=== PATIENT | male | born 1945 | race Caucasian/White ===

== ENCOUNTER 2017-11-07 08:00 | Outpatient (RCR) | payer MEDICARE, OTHER, SELFPAY ==
--- NOTE | 2017-10-21 12:59 | PCM.PR.HP ---
History of Present Illness Arrival date:: 10/21/17 Arrival time:: 12:59 Date of Referral:: 10/11/17 Date of Evaluation: 10/21/17 Referring Physician: DR.DEREK MANZO Primary Diagnosis: COPD J44.9 Gold Classification Stage III History of Present Illness: Patient presents to pulmonary rehab to day under the care of Dr. Manzo of the [facility]. [facility] Breathless Scale: When is the patient short of breath? Y/N Grade: Description of Breathlessness: 0 I only get breathless with strenuous exercise. 1 I get short of breath when hurrying on level ground or walking up a slight hill. 2 On level ground, I walk slower than people of the same age because of breathless, or have to stop for breath when walking at my own pace. 3 I stop for breath after walking 100 yards or after a few minutes on level ground. 4 I am too breathless to leave the house or I am breathless when dressing. Respiratory Problems: Yes: Able to Speak in Full Sentences, Dyspnea at Rest, Dyspnea with Activity No: Fatigue, Cough with Secretions Home Medications: Home Medications Losartan Potassium [Cozaar] 50 mg PO DAILY 03/29/16 Metoprolol Succinate 12.5 mg PO DAILY 03/29/16 Niacin [Niacin ER] 1,000 mg PO QHS 03/29/16 Pravastatin [Pravachol] 40 mg PO QHS 03/29/16 Oxycodone HCl/Acetaminophen [Percocet 5/325] 1 tab PO Q6H PRN PRN #15 tab 04/06/16 aspirin 81 mg tablet,delayed release 81 mg PO QDAY 06/29/17 isosorbide mononitrate ER 30 mg tablet,extended release 24 hr 30 mg PO DAILY #90 tab 09/13/17 umeclidinium 62.5 mcg-vilanterol 25 mcg/actuation powdr for inhalation 1 inh INHALATION Q24H #1 device 10/10/17 albuterol sulfate HFA 90 mcg/actuation aerosol inhaler 2 puff INHALATION Q6H PRN #18 g 10/11/17 Allergies/Adverse Reactions: Allergies VITAMIN B12 INJECTION Adverse Reaction (Uncoded 03/29/16 14:23) BLURRED VISION AND HOT FLASH - Secretions Normal Color:: clear Amount/Day:: scant to small amount Cough:: Yes A.T.C.: Yes Hx of Sleep Apnea: No Do you snore loudly (louder than talking or can be heard through closed doors)?: No Do you often feel tired/ fatigued/ sleepy during daytime?: Yes Has anyone observed you stop breathing during sleep?: No History of Hypertension (for STOP score): Yes STOP Results: Positive Medical Utilization Do you use a peak flow meter at home?: No Do you use a spacer device with your inhalers?: No Number of hospital visits in the last year?: 0 Number of emergency room visits in the last year?: 0 Do you see your physician on a regular schedule?: Yes How often?: Dr. Logan every 6mo, PCP 3-6 mo, Dr. 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 Chronic hypoxemic respiratory failure (Chronic) J96.11 COPD (chronic obstructive pulmonary disease) (Chronic) J44.9 Displacement of other ocular prosthetic devices, implants and grafts, 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 Surgical History: Past Surgical History (Last Reviewed 10/21/17 @ 13:23 by Arthur Tran CRT, LICENSED REACTOR OPERATOR, BS) H/O vasectomy (Resolved) Z98.52 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 Family History: Family History (Last Reviewed 10/10/17 @ 13:42 by Hannah Garcia) Sister Heart disease Sister Breast cancer Brother COPD (chronic obstructive pulmonary disease) - Current/ Previous Services Pulmonary Rehab:: No Social History - Smoking History Smoking Status: Former smoker Years Smokin Packs Smoked per Day: 2 Hx Smoking Cessation Date: 2015 Hx Tobacco Use: Yes Hx Smoking Exposure: No - Alcohol Use Alcohol Usage: Yes - social or mixed cocktail in evening after dinner - Substance Abuse Hx Substance Use: No - Occupation Occupation (List type of work in comments):: Retired Hours worked per day:: 4 - 3.5-4.0 - Hobbies, Recreation, Social Activities Hobbies: Other - fishing Recreational Activities: I am able to engage in most, but not all activities Functioning ADL/IADL - Current Ability Current Ability: Independent Self-Care (e.g.,grooming, dressing, & bathing), Independent Ambulation, Independent Transfer, Independent Household tasks (e.g., light meal prep, laundry, shopping) - Pt Functioning Prior to Problem Prior Functioning: Self-Care (e.g.,grooming, dressing, & bathing): Independent, Ambulation: Independent, Transfer: Independent, Household tasks (e.g., light meal prep, laundry, shopping): Independent Social Environment - Status Marital Status: - Current Living Arrangements Living Environment:: Family - Children How many children do you have?: 2 - 3-grandchildren; couple great grandchildren Do any of your children live nearby?: Yes - Safety Do you feel safe in your surroundings?: Yes - Assistance Do you need any assistance at home?: none Review of Systems Review of Systems: Right click = Denies ([place]). Left click = Reports ([place]) Respiratory: Reports: Appetite, Normal, Fatigue, Sleep, Normal. Denies: Cough, SOB at Rest, Sputum production, Dizziness/Lightheadedness Is Patient Pain Free?: No Pain Location: none Pain Level: 0/10 Risk Factor Assessment - Vital Signs Temperature: 98.7 F Pulse Rate: 68 Pulse Rhythm: Regular Respiratory Rate: 18 Pulse Ox: 91 - on 4 liters oxygen Blood Pressure: 122/70 Nailbeds:: pink - Smoking Do you use tobacco products? If so, how much and for how long?: Yes If no, have you EVER used tobacco products?: Quit greater than 12 months ago Exposure to 2nd-hand smoke? How much and how long?: No Do you plan to quit smoking?: Yes - Diabetes Nutrition Referral for Diabetes: No - Obesity Height: 5 ft 9 in Weight:: 181 lb - BMI 26.7% Weight Source: Standing Scale Nutritional Referral for Obesity: No - Physical Activity Physical Inactivity: Reg Exercise 30 min/day - Risk Stratification Risk Guidelines: Lowest Risk: Risk Factor for Smoking, Risk Factor for Dyslipidemia, Risk Factor for Diabetes, Risk Factor for Obesity, Risk Factor for Hypertension, Risk Factor for Sedentary Lifestyle, Risk Factor for Depression - For Smoking Smoking Risk Guidelines: Smoking Low Risk: None or quit greater than 6 months ago. Smoking Moderate Risk: Smoker or quit 6 months or less ago. Smoking High Risk: Smoker - For Dyslipidemia Dyslipidemia Risk Guidelines: Low Risk: Moderate Risk: High Risk: 15-25% fat 25.1-29% fat >/= 30% fat. <7% sat fat 7-9% sat fat >9% sat fat. <150 mg chol 150-299 mg chol >/= 300 mg chol. LDL <100 LDL 100-129 LDL >/= 130. Chol/HDL ratio <5.0 Chol/HDL ratio 5.0-6.0 Chol/HDL ratio >6.0. Triglycerides <100 Triglycerides 100-149 Triglycerides >/= 150 - For Diabetes Mellitus Diabetes Risk Guidelines: Diabetes Low Risk: HgA1c <6.5% and/or FBG <120. Diabetes Moderate Risk: HgA1c 6.6-7.9% and/or FBG 120-180. Diabetes High Risk: HgA1c >/= 8% and/or FBG >180 - For Obesity/Overweight Obesity/Overweight Risk Guidelines: Obesity Low Risk: BMI <25.0. Obesity Moderate Risk: BMI 25-29.9. Obesity High Risk: BMI >/= 30.0 - For Hypertension Hypertension Risk Guidelines: Hypertension Low Risk: Systolic <120 and Diastolic <80. Hypertension Moderate Risk: Systolic 120-139 and Diastolic 80-89. Hypertension High Risk: Systolic >/= 140 and Diastolic >/= 90 - For Sedentary Lifestyle Sedentary Lifestyle Risk Guidelines: Sedentary Lifestyle Low Risk: >/= 1,500 kcal/week. Sedentary Lifestyle Moderate Risk: 700-1,499 kcal/week. Sedentary Lifestyle High Risk: < 700 kcal/week - For Depression Depression Risk Guidelines: Depression Low Risk: Not clinically depressed. Depression Moderate Risk: Mildly depressed. Depression High Risk: Clinically depressed Motivation - Motivation to Participate On a scale of 1 to 10, how prepared are you to commit to attending program?: 8 What do you see as barriers to successfully being able to complete the program?: work schedule and conflict with program hours being the same times. What do you see as the benefits of succesfully completing the program? In other words, what do you hope to get out of participating in the program?: breath better Are there issues you are dealing with that will interfere with completing the program?: work mornings 3.5 hours and are the same time of the [place] program Do you have a spouse or signficant other, family or friends who will help support you to complete the program?: yes Diagnostic Data Review - Pulmonary Function Test FEV1:: 1.12 - 37% predicted FVC:: 2.66 - 65% predicted FEV1/FVC%:: 42 Gold Classification: GOLD class III(severe COPD)with FEV1/FVC<70, 30%</=FEV1< 50% predicted
--- NOTE | 2017-10-21 13:11 | PR.HP_ITS ---
History of Present Illness Arrival date:: 10/21/17 Arrival time:: 12:59 Date of Referral:: 10/11/17 Date of Evaluation: 10/21/17 Referring Physician: DR.DEREK MANZO Primary Diagnosis: COPD J44.9 Gold Classification Stage III History of Present Illness: Patient presents to pulmonary rehab to day under the care of Dr. Manzo of the [facility]. [facility] Breathless Scale: When is the patient short of breath? Y/N Grade: Description of Breathlessness: 0 I only get breathless with strenuous exercise. 1 I get short of breath when hurrying on level ground or walking up a slight hill. 2 On level ground, I walk slower than people of the same age because of breathless, or have to stop for breath when walking at my own pace. 3 I stop for breath after walking 100 yards or after a few minutes on level ground. 4 I am too breathless to leave the house or I am breathless when dressing. Respiratory Problems: Yes: Able to Speak in Full Sentences, Dyspnea at Rest, Dyspnea with Activity No: Fatigue, Cough with Secretions Home Medications: Home Medications Losartan Potassium [Cozaar] 50 mg PO DAILY 03/29/16 Metoprolol Succinate 12.5 mg PO DAILY 03/29/16 Niacin [Niacin ER] 1,000 mg PO QHS 03/29/16 Pravastatin [Pravachol] 40 mg PO QHS 03/29/16 Oxycodone HCl/Acetaminophen [Percocet 5/325] 1 tab PO Q6H PRN PRN #15 tab aspirin 81 mg tablet,delayed release 81 mg PO QDAY 06/29/17 isosorbide mononitrate ER 30 mg tablet,extended release 24 hr 30 mg PO DAILY # 90 tab 09/13/17 umeclidinium 62.5 mcg-vilanterol 25 mcg/actuation powdr for inhalation 1 inh INHALATION Q24H #1 device 10/10/17 albuterol sulfate HFA 90 mcg/actuation aerosol inhaler 2 puff INHALATION Q6H PRN #18 g 10/11/17 Allergies/Adverse Reactions: Allergies VITAMIN B12 INJECTION Adverse Reaction (Uncoded 03/29/16 14:23) BLURRED VISION AND HOT FLASH - Secretions Normal Color:: clear Amount/Day:: scant to small amount Cough:: Yes A.T.C.: Yes Hx of Sleep Apnea: No Do you snore loudly (louder than talking or can be heard through closed doors)? : No Do you often feel tired/ fatigued/ sleepy during daytime?: Yes Has anyone observed you stop breathing during sleep?: No History of Hypertension (for STOP score): Yes STOP Results: Positive Medical Utilization Do you use a peak flow meter at home?: No Do you use a spacer device with your inhalers?: No Number of hospital visits in the last year?: 0 Number of emergency room visits in the last year?: 0 Do you see your physician on a regular schedule?: Yes How often?: Dr. Logan every 6mo, PCP 3-6 mo, Dr. 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 Chronic hypoxemic respiratory failure (Chronic) J96.11 COPD (chronic obstructive pulmonary disease) (Chronic) J44.9 Displacement of other ocular prosthetic devices, implants and grafts, 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 Surgical History: Past Surgical History (Last Reviewed 10/21/17 @ 13:23 by Arthur Tran CRT, CHILD DAYCARE WORKER , BS) H/O vasectomy (Resolved) Z98.52 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 Family History: Family History (Last Reviewed 10/10/17 @ 13:42 by Hannah Garcia) Sister Heart disease Sister Breast cancer Brother COPD (chronic obstructive pulmonary disease) - Current/ Previous Services Pulmonary Rehab:: No Social History - Smoking History Smoking Status: Former smoker Years Smokin Packs Smoked per Day: 2 Hx Smoking Cessation Date: 2015 Hx Tobacco Use: Yes Hx Smoking Exposure: No - Alcohol Use Alcohol Usage: Yes - social or mixed cocktail in evening after dinner - Substance Abuse Hx Substance Use: No - Occupation Occupation (List type of work in comments):: Retired Hours worked per day:: 4 - 3.5-4.0 - Hobbies, Recreation, Social Activities Hobbies: Other - fishing Recreational Activities: I am able to engage in most, but not all activities Functioning ADL/IADL - Current Ability Current Ability: Independent Self-Care (e.g.,grooming, dressing, & bathing), Independent Ambulation, Independent Transfer, Independent Household tasks (e.g. , light meal prep, laundry, shopping) - Pt Functioning Prior to Problem Prior Functioning: Self-Care (e.g.,grooming, dressing, & bathing): Independent, Ambulation: Independent, Transfer: Independent, Household tasks (e.g., light meal prep, laundry, shopping): Independent Social Environment - Status Marital Status: - Current Living Arrangements Living Environment:: Family - Children How many children do you have?: 2 - 3-grandchildren; couple great grandchildren Do any of your children live nearby?: Yes - Safety Do you feel safe in your surroundings?: Yes - Assistance Do you need any assistance at home?: none Review of Systems Review of Systems: Right click = Denies ([place]). Left click = Reports ([place]) Respiratory: Reports: Appetite, Normal, Fatigue, Sleep, Normal. Denies: Cough, SOB at Rest, Sputum production, Dizziness/Lightheadedness Is Patient Pain Free?: No Pain Location: none Pain Level: 0/10 Risk Factor Assessment - Vital Signs Temperature: 98.7 F Pulse Rate: 68 Pulse Rhythm: Regular Respiratory Rate: 18 Pulse Ox: 91 - on 4 liters oxygen Blood Pressure: 122/70 Nailbeds:: pink - Smoking Do you use tobacco products? If so, how much and for how long?: Yes If no, have you EVER used tobacco products?: Quit greater than 12 months ago Exposure to 2nd-hand smoke? How much and how long?: No Do you plan to quit smoking?: Yes - Diabetes Nutrition Referral for Diabetes: No - Obesity Height: 5 ft 9 in Weight:: 181 lb - BMI 26.7% Weight Source: Standing Scale Nutritional Referral for Obesity: No - Physical Activity Physical Inactivity: Reg Exercise 30 min/day - Risk Stratification Risk Guidelines: Lowest Risk: Risk Factor for Smoking, Risk Factor for Dyslipidemia, Risk Factor for Diabetes, Risk Factor for Obesity, Risk Factor for Hypertension, Risk Factor for Sedentary Lifestyle, Risk Factor for Depression - For Smoking Smoking Risk Guidelines: Smoking Low Risk: None or quit greater than 6 months ago. Smoking Moderate Risk: Smoker or quit 6 months or less ago. Smoking High Risk: Smoker - For Dyslipidemia Dyslipidemia Risk Guidelines: Low Risk: Moderate Risk: High Risk: 15-25% fat 25.1-29% fat >/= 30% fat. <7% sat fat 7-9% sat fat >9% sat fat. <150 mg chol 150-299 mg chol >/= 300 mg chol. LDL <100 LDL 100-129 LDL >/= 130. Chol/HDL ratio <5.0 Chol/HDL ratio 5.0-6.0 Chol/HDL ratio >6.0. Triglycerides <100 Triglycerides 100-149 Triglycerides >/= 150 - For Diabetes Mellitus Diabetes Risk Guidelines: Diabetes Low Risk: HgA1c <6.5% and/or FBG <120. Diabetes Moderate Risk: HgA1c 6.6-7.9% and/or FBG 120-180. Diabetes High Risk: HgA1c >/= 8% and/or FBG >180 - For Obesity/Overweight Obesity/Overweight Risk Guidelines: Obesity Low Risk: BMI <25.0. Obesity Moderate Risk: BMI 25-29.9. Obesity High Risk: BMI >/= 30.0 - For Hypertension Hypertension Risk Guidelines: Hypertension Low Risk: Systolic <120 and Diastolic <80. Hypertension Moderate Risk: Systolic 120-139 and Diastolic 80-89. Hypertension High Risk: Systolic >/= 140 and Diastolic >/= 90 - For Sedentary Lifestyle Sedentary Lifestyle Risk Guidelines: Sedentary Lifestyle Low Risk: >/= 1 ,500 kcal/week. Sedentary Lifestyle Moderate Risk: 700-1,499 kcal/week. Sedentary Lifestyle High Risk: < 700 kcal/week - For Depression Depression Risk Guidelines: Depression Low Risk: Not clinically depressed. Depression Moderate Risk: Mildly depressed. Depression High Risk: Clinically depressed Motivation - Motivation to Participate On a scale of 1 to 10, how prepared are you to commit to attending program?: 8 What do you see as barriers to successfully being able to complete the program? : work schedule and conflict with program hours being the same times. What do you see as the benefits of succesfully completing the program? In other words, what do you hope to get out of participating in the program?: breath better Are there issues you are dealing with that will interfere with completing the program?: work mornings 3.5 hours and are the same time of the [place] program Do you have a spouse or signficant other, family or friends who will help support you to complete the program?: yes Diagnostic Data Review - Pulmonary Function Test FEV1:: 1.12 - 37% predicted FVC:: 2.66 - 65% predicted FEV1/FVC%:: 42 Gold Classification: GOLD class III(severe COPD)with FEV1/FVC<70, 30%</=FEV1< 50 % predicted
[2017-10-21 13:24] VITALS: BP 122/70; PULSE 68; RESP 18; TEMP 37.1; O2SAT 91
--- NOTE | 2017-10-21 13:44 | PR.ITP_ITS ---
General Information - General Information Admitting Diagnosis: COPD J44.9 Gold Classification:: GOLD 3: Severe Oxygen: 4liters at rest, 6 liters with exertion/activity - PFT FEV1:: 1.12 FVC:: 2.66 FEV1/FVC%:: 42 - Education/Goals Barriers to Learning: Hearing Impairment, Vision Impairment Individual Counseling: Initial Assessment: Dyspnea control techniques at rest, activity, and ADLs, O2, Rx, system, safety, ADL management and pacing, Panic & depression management, Home exercise plan & guidelines Patient Goals: Breathe better: Initial Assessment, Increase endurance/stamina: Initial Assessment, Return to recreation/hobby: Initial Assessment, Symptom management: Initial Assessment Exercise - Initial Assessment - Visit Date of Eval: 10/21/17 - established initial ITP - Problem/Goals Problems: Knowledge deficit exercise guidelines, Knowledge deficit exercise safety Goals:: ID: [id number] - Exercise Prescription Mode:: Treadmill, Rower, Airdyne, NuStep Frequency (x/week): 3 Duration:: 30 MET LEVEL:: 2 HR (bpm):: 110 - 108-110 - Plan Plan and Plan to Review:: Benefits of exercise, Core components of exercise, How to measure dyspnea level, How to monitor dyspnea level, Exercise intensity, Exercise safety guideline, Home exercise guidelines, Alicja: 3-4/- Disease Management - Initial - Problems/Goals-Hypoxemia Hypoxemia Problems:: Hypoxemia Hypoxemia Goals:: Hypoxemia managed, Using O2 as Rx's safely - Problems/Goals-Bronchial Hygiene Bronchial Hygiene Goals:: Pt demonstrates effective cough, effective secretion clearance., Pt describes signs and symptoms of infection. - Initial Assessment SpO2:: 91 Port O2:: 4 DME:: Kristopher Does pt report taking home meds as prescribed?: Yes Medications: Yes MDI - rescue inhaler, Yes DPI, No Spacer Patient Reports:: Non-productive cough - Plans Hypoxemia Plan:: Monitor SpO2 rest & with exercise, Train appropriate O2 use with exercise, Train O2 safety & systems Reviewed prescribed medications:: Purpose, Schedule, Side effects, Importance of compliance Instruct correct technique/timing & care:: MDI, DPI, Return demo use of inhaler Bronchial Hygiene Plan: Controlled cough, Vibratory PEP device, Hydration, Hand hygiene, Signs/symptoms to report: Psychosocial - Initial Assess - Problems/Goals Problems: Impaired Q.O.L. Psychosocial Goals: Improved psychosocial coping skills., Verbalizes coping strategies., Improved Q.O.L. - Psychosocial Test Depression:: Impaired QOL Referred to MD for counseling:: No - Plan Reviewed screening results: Yes Instructions given regarding:: Benefits of exercise, Relaxation techniques, Training in coping strategies Tobacco - Initial Assessment - Program Goals Tobacco Program Goals: Complete smoking cessation. Attend education classes. Improve Knowledge Test score - Stage of Change Stages of Change:: Action - Learning Barriers Learning Barriers: Hearing, Vision - Family Support Do you have family support?: Yes - Tobacco Use Tobacco Use: Cigarettes - former smoker quit about 2 years ago w/OR How long ago did you quit using tobacco products?: Greater than or equal to 6 months ago Years Smokin - Intervention Smoking Cessation Referral:: Yes Individual Education/Counseling:: No Education Schedule Given:: Yes - Education Gave Education Materials For:: Tobacco Triggers, Pulmonary Disease, Risk Factors , Breathing Techniques, Medical Compliance, Pulmonary A&P, Exacerbation Signs & Symptoms, Stress & Relaxation Nutrition/Wt Mgmt - Initial - Weight Management Admit Height:: 5 ft 9 in Admit Weight:: 181 lb Admit BMI:: 26.7 - Diabetes Diabetes:: No Insulin: No Do you monitor your blood sugar at home?: No - Intervention Referral to dietitian:: No Referral to Diabetic Clinic:: No Will attend diet classes:: Yes - Plan Nutrition Plan: Yes Nutrition education class:, Yes Weight control education class: Patient Health Questionnaire Initial Assessment 1. Little interest or pleasure in doing things: Not at all 2. Feeling down, depressed, or hopeless: Not at all 3. Trouble falling or staying asleep, or sleeping too much: Not at all 4. Feeling tired or having little energy: Not at all 5. Poor appetite or overeating: Not at all 6. Feeling bad about yourself -- or that you are a failure or have let yourself or your family down: Not at all 7. Trouble concentrating on things, such as reading the newspaper or watching television: Not at all 8. Moving or speaking so slowly that other people could have noticed. Or the opposite - being so fidgety or restless that you have been moving around a lot more than usual: Not at all 9. Thoughts that you would be better off , or of hurting yourself in some way: Not at all Total Score: 0 COPD Knowledge Test Initial COPD is a lung disease that:: Makes it hard to breathe & gets worse over time In the [place] the term COPD describes 2 main lung conditions:: Emphysema & pulmonary hypertension The most common lung irritant that causes COPD is:: Cigarette smoke Common signs and symptoms of COPD include:: An ongoing cough/cough that produces a large amount of mucus, & SOB If you have COPD, what steps can you take?: Quit smoking & avoid secondhand smoke Swelling of the ankles is common in COPD:: False Fatigue [tiredness] is common in COPD:: True Wheezing is common in COPD:: True Crushing chest pain is common in COPD:: False Rapid weight loss is common in COPD:: False Breathlessness is a normal response to exercise: False Exercise should be avoided if it makes you short of breath: False All bronchodilators act within 10 minutes: True A spacer device increases the medication to the lungs: True Annual flu vaccine is recommended for pts w/lung disease: True COPD Knowledge Test Total Score:: 11 COPD Assessment Test [CAT] - Questions Never cough = 0, Cough all the time = 5: 4 No phlegm = 0, Chest full of phlegm = 5: 4 No chest tightness = 0, Chest very tight = 5: 1 No breathless w/exertion = 0, Very breathless w/exertion = 5: 5 No limitations w/activity = 0, Very limited w/activity = 5: 1 Confident leaving home = 0, Not at all confident = 5: 0 Sleep soundly = 0, Don't sleep soundly = 5: 0 Lots of energy = 0, No energy at all = 5: 1 Total CAT score:: 16 Self-Efficacy Initial Assessment We would like to know how confident you are in doing certain activities. Please select your confidence level for:: Select your confidence level for the following using the scale 1-10 where 1 is not at all confident and 10 is totally confident. Your score is the average of all 6 responses. Fatigue: How confident are you that you can keep the fatigue caused by your disease from interfering with the things you want to do? Select Number: 8 Physical Discomfort or Pain: How confident are you that you can keep the physical discomfort or pain of your disease from interfering with the things you want to do? Select Number: 8 Emotional Distress: How confident are you that you can keep the emotional distress caused by your disease from interfering with the things you want to do? Select Number: 8 Other Symptoms or Health Problems: How confident are you that you can keep other symptoms or health problems from interfering with the things you want to do? Select Number: 8 Different Tasks and Activities: How confident are you that you can do the different tasks and activities needed to manage your health condition so as to reduce your need to see a doctor? Select Number: 8 Medication: How confident are you that you can do things other than just taking medication to reduce how much your illness affects your everyday life? Select Number: 9 Total Score:: 8 Nutrition Survey - Nutrition Survey Instructions Scoring Instructions: Scoring is as follows: Yes = 1 points. No = 0 point. Patient score that is >/=12 is considered to be at potential nutritional risk and could benefit from a referral to a registered dietitian. - Nutrition Survey Initial Have you lost >10 lbs over the past 2 months without trying?: No Are you following a special diet at home for diabetes, low fat, or low salt?: No Are you interested in meeting with a dietitian for help understanding your diet? : No Do you eat less than 3 meals a day?: Yes Do you eat fatty meats (ocon[place], sausage, ribs, etc), fried foods, desserts, large amounts of salad dressings, margarine, butter, or cheese most days?: Yes Do you have food allergies? [Enter types in comment field]: No Do you eat in restaurants more than 3 times a week?: No Do you season food with salt, seasoning salt, or garlic salt?: Yes Do you used canned, boxed, frozen meals, or soups, seasoning packets?: No Total Score:: 3
[2017-10-21 14:18] VITALS: O2SAT 91; BMI 26.7
--- NOTE | 2017-10-21 14:20 | PR.DATECOV_ITS ---
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 Effective Mar 11, 2013 our hours will be changing to 8:00 to 4:30 on Tuesday, Tuesday and Tuesday. First Date of the Month: 10/21/17 Last Date of the Month: 11/07/17
--- NOTE | 2017-11-01 07:34 | PR.DATECOV_ITS ---
Dates of Coverage Times for Dates Of Coverage; All dates of coverage are for physician supervision /biomedical specialist for during the times of 08:00 AM through 4:30 PM. Effective Mar 11, 2013 our hours will be changing to 8:00 to 4:30 on Tuesday, Tuesday and Tuesday. First Date of the Month: 11/08/17 Last Date of the Month: 12/07/17
--- NOTE | 2017-11-01 07:34 | PCM.PR.TP ---
Exercise - 30-Day Assessment - Exercise Prescription Mode:: Treadmill, NuStep, Arm Ergometer Frequency (x/week): 3 Duration:: 30 Aerobic Exercise [30-60 min 3-7x/week]:: Progressing Target heart rate: 110 - THRR 103-110 w/ max HR of 85 Ailcja.5 MET Level:: 3 - Home Exercise Home Exercise:: No Disease Management - 30-Day - Hypoxemia Reassessment: Demonstrates knowledge of O2 Rx at rest, Demonstrates knowledge of O2 Rx with exercise, Using O2 as prescribed, Has home O2 as prescribed, Uses port O2 as prescribed - Medications Medication list reviewed:: Yes Taking medications 100% of the time:: Met Psychosocial - 30-Day - Assessment Reassessment: Management of stress & depression, Practicing interventions Tobacco - 30-Day Assessment - Program Goals Tobacco Program Goals: Complete smoking cessation. Attend education classes. Improve Knowledge Test score - Stage of Change Stages of Change:: Action - Learning Barriers Learning Barriers: Participates in education - Family Support Do you have family support?: Yes - Tobacco Use Tobacco Use: Non-smoker Do you use smokeless tobacco?: No - Intervention Smoking Cessation Referral:: No Individual Education/Counseling:: No Education Schedule Given:: Yes - Education Gave Education Materials For:: Pulmonary Disease, Risk Factors, Breathing Techniques, Medical Compliance, Pulmonary A&P, Exacerbation Signs & Symptoms, Stress & Relaxation Nutrition/Wt Mgmt - 30-Day - Weight Management Weight:: 177 lb - down 3 pounds Weight Goals Progress:: Progressing Patient Health Questionnaire 30-Day Re-eval Assessment 1. Little interest or pleasure in doing things: Not at all 2. Feeling down, depressed, or hopeless: Not at all 3. Trouble falling or staying asleep, or sleeping too much: Not at all 4. Feeling tired or having little energy: Not at all 5. Poor appetite or overeating: Not at all 6. Feeling bad about yourself -- or that you are a failure or have let yourself or your family down: Not at all 7. Trouble concentrating on things, such as reading the newspaper or watching television: Not at all 8. Moving or speaking so slowly that other people could have noticed. Or the opposite - being so fidgety or restless that you have been moving around a lot more than usual: Not at all 9. Thoughts that you would be better off , or of hurting yourself in some way: Not at all Total Score: 0 COPD Assessment Test [CAT] - Questions Never cough = 0, Cough all the time = 5: 2 No phlegm = 0, Chest full of phlegm = 5: 3 No chest tightness = 0, Chest very tight = 5: 1 No breathless w/exertion = 0, Very breathless w/exertion = 5: 5 No limitations w/activity = 0, Very limited w/activity = 5: 1 Confident leaving home = 0, Not at all confident = 5: 0 Sleep soundly = 0, Don't sleep soundly = 5: 0 Lots of energy = 0, No energy at all = 5: 1 Total CAT score:: 13 Self-Efficacy 30-Day Re-eval Assessment We would like to know how confident you are in doing certain activities. Please select your confidence level for:: Select your confidence level for the following using the scale 1-10 where 1 is not at all confident and 10 is totally confident. Your score is the average of all 6 responses. Fatigue: How confident are you that you can keep the fatigue caused by your disease from interfering with the things you want to do? Select Number: 8 Physical Discomfort or Pain: How confident are you that you can keep the physical discomfort or pain of your disease from interfering with the things you want to do? Select Number: 8 Emotional Distress: How confident are you that you can keep the emotional distress caused by your disease from interfering with the things you want to do? Select Number: 9 Other Symptoms or Health Problems: How confident are you that you can keep other symptoms or health problems from interfering with the things you want to do? Select Number: 8 Different Tasks and Activities: How confident are you that you can do the different tasks and activities needed to manage your health condition so as to reduce your need to see a doctor? Select Number: 9 Medication: How confident are you that you can do things other than just taking medication to reduce how much your illness affects your everyday life? Select Number: 9 Total Score:: 8
== END 2017-11-07 23:59 ==
LOC: PR 08:00
PROVIDERS: Family Provider Family Medicine; PCP Family Medicine; Visit Provider Internal Medicine Critical Care Medicine
DX: J44.9 Chronic obstructive pulmonary disease, unspecified (principal)
CPT/HCPCS: 97150; G0424

== ENCOUNTER 2017-12-07 08:00 | Outpatient (RCR) | payer MEDICARE, OTHER, SELFPAY ==
[2017-11-08 01:06] VITALS: PULSE 68; RESP 18; TEMP 37.1; O2SAT 91
--- NOTE | 2017-12-01 08:02 | PR.ITP_ITS ---
General Information - General Information Admitting Diagnosis: COPD Classification III Gold Classification:: GOLD 3: Severe - Education/Goals Barriers to Learning: Hearing Impairment - implant right ear. Individual Counselin-Day Assessment: Dyspnea control techniques at rest, activity, and ADLs - uses proper use of controlled breathing techniques with ADLs, Inhaled and respiratory medications, Exacerbation prevention & management , O2, Rx, system, safety, ADL management and pacing, Home exercise plan & guidelines - has increased home activities. Patient Goals: Breathe better: 60-Day Assessment - Met goal, Increase endurance/ stamina: 60-Day Assessment - Met Goal; increased activity level with less dyspnea, Return to recreation/hobby: 60-Day Assessment, Take medications correctly: 60-Day Assessment - demonstrates proper technique delivery of medications Exercise - 60-Day Assessment - Current Level Mode:: Treadmill, NuStep, Arm Ergometer Frequency (x/week): 3 Duration:: 30 Aerobic Exercise [30-60 min 3-7x/week]:: Progressing Target heart rate: 103-110 Alicja-12 MET Level:: 4.7 - 104% increase since starting program - Home Exercise Home Exercise:: Yes Frequency:: daily activities walking Disease Management - 60-Day - Hypoxemia Reassessment: Demonstrates knowledge of O2 Rx at rest, Demonstrates knowledge of O2 Rx with exercise, Using O2 as prescribed, Has home O2 as prescribed, Uses port O2 as prescribed - Medications Medication list reviewed:: Yes Taking medications 100% of the time:: Met Medication reassessment: Yes Pt demonstrates correct technique timing for MDI, Yes Pt demonstrates correct technique timing for DPI, Yes Pt demonstrates correct technique timing for NEB, Yes Pt demonstrates correct technique timing for spacer - Bronchial Hygiene Bronchial Hygiene Plan: Yes Pt demonstrates correctly for effective cough, Yes Pt demo correct for device, Yes Pt demo correct for improved hydration, Yes Pt demo correct for hand hygiene, Yes Pt demo correct for verbalize when to call MD Psychosocial - 60-Day - Assessment Depression reassess: Management of stress: Met, Management of depression: Met, Practicing interventions: Met Tobacco - 60-Day Assessment - Program Goals Tobacco Program Goals: Complete smoking cessation. Attend education classes. Improve Knowledge Test score - Stage of Change Stages of Change:: Action - Learning Barriers Learning Barriers: Participates in education, Change in behavior - Family Support Do you have family support?: Yes - Tobacco Use Tobacco Use: Non-smoker Do you use smokeless tobacco?: No - Intervention Education Schedule Given:: Yes - Education Gave Education Materials For:: Tobacco Triggers, Pulmonary Disease, Risk Factors , Breathing Techniques, Medical Compliance, Pulmonary A&P, Exacerbation Signs & Symptoms, Stress & Relaxation Nutrition/Wt Mgmt - 60-Day - Weight Management Weight:: 172 lb - decrease 5% down from 181 Weight Goals Progress:: Progressing Patient Health Questionnaire 60-Day Re-eval Assessment 1. Little interest or pleasure in doing things: Not at all 2. Feeling down, depressed, or hopeless: Not at all 3. Trouble falling or staying asleep, or sleeping too much: Not at all 4. Feeling tired or having little energy: Not at all 5. Poor appetite or overeating: Not at all 6. Feeling bad about yourself -- or that you are a failure or have let yourself or your family down: Not at all 7. Trouble concentrating on things, such as reading the newspaper or watching television: Not at all 8. Moving or speaking so slowly that other people could have noticed. Or the opposite - being so fidgety or restless that you have been moving around a lot more than usual: Not at all 9. Thoughts that you would be better off , or of hurting yourself in some way: Not at all Total Score: 0 COPD Assessment Test [CAT] - Questions Never cough = 0, Cough all the time = 5: 2 No phlegm = 0, Chest full of phlegm = 5: 3 No chest tightness = 0, Chest very tight = 5: 1 No breathless w/exertion = 0, Very breathless w/exertion = 5: 2 No limitations w/activity = 0, Very limited w/activity = 5: 1 Confident leaving home = 0, Not at all confident = 5: 0 Sleep soundly = 0, Don't sleep soundly = 5: 0 Lots of energy = 0, No energy at all = 5: 1 Total CAT score:: 10 Self-Efficacy 60-Day Re-eval Assessment We would like to know how confident you are in doing certain activities. Please select your confidence level for:: Select your confidence level for the following using the scale 1-10 where 1 is not at all confident and 10 is totally confident. Your score is the average of all 6 responses. Fatigue: How confident are you that you can keep the fatigue caused by your disease from interfering with the things you want to do? Select Number: 9 Physical Discomfort or Pain: How confident are you that you can keep the physical discomfort or pain of your disease from interfering with the things you want to do? Select Number: 9 Emotional Distress: How confident are you that you can keep the emotional distress caused by your disease from interfering with the things you want to do? Select Number: 10 Other Symptoms or Health Problems: How confident are you that you can keep other symptoms or health problems from interfering with the things you want to do? Select Number: 9 Different Tasks and Activities: How confident are you that you can do the different tasks and activities needed to manage your health condition so as to reduce your need to see a doctor? Select Number: 10 Medication: How confident are you that you can do things other than just taking medication to reduce how much your illness affects your everyday life? Select Number: 10 Total Score:: 9
--- NOTE | 2017-12-01 08:05 | PCM.PR.DAT ---
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 Effective Mar 11, 2013 our hours will be changing to 8:00 to 4:30 on Tuesday, Tuesday and Tuesday. First Date of the Month: 12/09/17 Last Date of the Month: 01/07/18
--- NOTE | 2017-12-01 08:09 | PR.DATECOV_ITS ---
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 Effective Mar 11, 2013 our hours will be changing to 8:00 to 4:30 on Tuesday, Tuesday and Tuesday. First Date of the Month: 12/09/17 Last Date of the Month: 01/07/18
== END 2017-12-08 23:59 ==
LOC: PR 08:00
PROVIDERS: Family Provider Family Medicine; PCP Family Medicine; Visit Provider Internal Medicine Critical Care Medicine
DX: J44.9 Chronic obstructive pulmonary disease, unspecified (principal)
CPT/HCPCS: 97150; G0424

== ENCOUNTER 2018-01-06 08:00 | Outpatient (RCR) | payer MEDICARE, OTHER, SELFPAY ==
[2017-12-09 00:55] VITALS: PULSE 68; RESP 18; TEMP 37.1; O2SAT 91
--- NOTE | 2017-12-30 08:38 | PR.DATECOV_ITS ---
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 Effective Mar 11, 2013 our hours will be changing to 8:00 to 4:30 on Tuesday, Tuesday and Tuesday. First Date of the Month: 01/08/18 Last Date of the Month: 02/07/18
--- NOTE | 2017-12-30 08:38 | PCM.PR.TP ---
General Information - General Information Gold Classification:: GOLD 3: Severe - Education/Goals Barriers to Learning: Vision Impairment Patient Goals: Breathe better: Discharge Assessment - MET, Symptom management: Discharge Assessment - MET Exercise - 90-Day Assessment - Exercise Prescription Mode:: Treadmill, Airdyne, NuStep, Arm Ergometer Frequency (x/week): 3 Duration:: 30 Aerobic Exercise [30-60 min 3-7x/week]:: Progressing Target heart rate: 103-110 Alicja-13 MET Level:: 5 - Home Exercise Home Exercise?: Yes Disease Management - 90-Day - Hypoxemia Reassessment: Demonstrates knowledge of O2 Rx at rest, Demonstrates knowledge of O2 Rx with exercise, Using O2 as prescribed, Has home O2 as prescribed, Uses port O2 as prescribed - Medications Medication list reviewed:: Yes Taking medications 100% of the time:: Met Medication reassessment: Yes Pt demonstrates correct technique timing for MDI, Yes Pt demonstrates correct technique timing for DPI, Yes Pt demonstrates correct technique timing for NEB, Yes Pt demonstrates correct technique timing for spacer - Bronchial Hygiene Bronchial Hygiene Plan: Yes Pt demonstrates correctly for effective cough, Yes Pt demo correct for device - RETURNED DEMONSTRATION OF ACAPELLA, Yes Pt demo correct for improved hydration, Yes Pt demo correct for hand hygiene, Yes Pt demo correct for verbalize when to call MD Psychosocial - 90-Day - Assessment Depression reassess: Management of stress: Met, Management of depression: Met, Practicing interventions: Met Tobacco - 90-Day Assessment - Program Goals Tobacco Program Goals: Complete smoking cessation. Attend education classes. Improve Knowledge Test score - Stage of Change Stages of Change:: Action - Learning Barriers Learning Barriers: Participates in education, Change in behavior - Family Support Do you have family support?: Yes - Tobacco Use Tobacco Use: Non-smoker - Intervention Education Schedule Given:: Yes - Education Gave Education Materials For:: Pulmonary Disease, Risk Factors, Breathing Techniques, Medical Compliance, Pulmonary A&P, Exacerbation Signs & Symptoms, Stress & Relaxation Nutrition/Wt Mgmt - 90-Day - Weight Management Weight Assessment:: BMI 21 to 25 Weight:: 170 lb - DOWN 3.5# Weight Goals Progress:: Progressing Patient Health Questionnaire 90-Day Re-eval Assessment 1. Little interest or pleasure in doing things: Not at all 2. Feeling down, depressed, or hopeless: Not at all 3. Trouble falling or staying asleep, or sleeping too much: Several days 4. Feeling tired or having little energy: Not at all 5. Poor appetite or overeating: Not at all 6. Feeling bad about yourself -- or that you are a failure or have let yourself or your family down: Not at all 7. Trouble concentrating on things, such as reading the newspaper or watching television: Not at all 8. Moving or speaking so slowly that other people could have noticed. Or the opposite - being so fidgety or restless that you have been moving around a lot more than usual: Not at all 9. Thoughts that you would be better off , or of hurting yourself in some way: Not at all How difficult have these problems made it for you to do your work, take care of things at home, or get along with other people?: Not difficult at all Total Score: 1 COPD Assessment Test [CAT] - Questions Never cough = 0, Cough all the time = 5: 2 No phlegm = 0, Chest full of phlegm = 5: 2 No chest tightness = 0, Chest very tight = 5: 1 No breathless w/exertion = 0, Very breathless w/exertion = 5: 1 No limitations w/activity = 0, Very limited w/activity = 5: 0 Confident leaving home = 0, Not at all confident = 5: 0 Sleep soundly = 0, Don't sleep soundly = 5: 2 Lots of energy = 0, No energy at all = 5: 1 Total CAT score:: 9 Self-Efficacy 90-Day Re-eval Assessment We would like to know how confident you are in doing certain activities. Please select your confidence level for:: Select your confidence level for the following using the scale 1-10 where 1 is not at all confident and 10 is totally confident. Your score is the average of all 6 responses. Fatigue: How confident are you that you can keep the fatigue caused by your disease from interfering with the things you want to do? Select Number: 10 Physical Discomfort or Pain: How confident are you that you can keep the physical discomfort or pain of your disease from interfering with the things you want to do? Select Number: 10 Emotional Distress: How confident are you that you can keep the emotional distress caused by your disease from interfering with the things you want to do? Select Number: 10 Other Symptoms or Health Problems: How confident are you that you can keep other symptoms or health problems from interfering with the things you want to do? Select Number: 10 Different Tasks and Activities: How confident are you that you can do the different tasks and activities needed to manage your health condition so as to reduce your need to see a doctor? Select Number: 10 Medication: How confident are you that you can do things other than just taking medication to reduce how much your illness affects your everyday life? Select Number: 10 Total Score:: 10
== END 2018-01-07 23:59 ==
LOC: PR 08:00
PROVIDERS: Family Provider Family Medicine; PCP Family Medicine; Visit Provider Internal Medicine Critical Care Medicine
DX: J44.9 Chronic obstructive pulmonary disease, unspecified (principal)
CPT/HCPCS: 97150; G0424

== ENCOUNTER 2018-01-23 08:00 | Outpatient (RCR) | payer MEDICARE, OTHER, SELFPAY ==
[2018-01-08 00:47] VITALS: PULSE 68; RESP 18; TEMP 37.1; O2SAT 91
--- NOTE | 2018-01-31 07:57 | PR.ITP_ITS ---
General Information - Education/Goals Patient Goals: Breathe better: Discharge Assessment - Goal met, Increase endurance/stamina: Discharge Assessment - Goal met, Return to recreation/hobby: Discharge Assessment - Goal met; participating in more social activities., Symptom management: Discharge Assessment - Goal met; do much better since completing the MO program. Exercise - Final Assessment - Exercise Prescription Mode:: Treadmill, Rower, Airdyne, NuStep Frequency (x/week): 3 Duration:: 30 Aerobic Exercise [30-60 min 3-7x/week]:: Met Target heart rate: 103-110 Alicja-13 MET Level:: 5 - Home Exercise Home Exercise:: Yes Frequency: daily Time (minutes):: 30 - walking for now. Patient is considering maintenance program Disease Management - Final - Hypoxemia Final Assessment: Demonstrates knowledge of O2 Rx at rest, Demonstrates knowledge of O2 Rx with exercise, Using O2 as prescribed, Has home O2 as prescribed, Uses port O2 as prescribed - Medications Medication list reviewed:: Yes Taking medications 100% of the time:: Met Medication reassessment: Yes Pt demonstrates correct technique timing for MDI, Yes Pt demonstrates correct technique timing for DPI, Yes Pt demonstrates correct technique timing for NEB, Yes Pt demonstrates correct technique timing for spacer - returned demonstration of use of spacer/MDI - Bronchial Hygiene Bronchial Hygiene Plan: Yes Pt demonstrates correctly for effective cough, Yes Pt demo correct for device - returned demonstration of acapella device, Yes Pt demo correct for improved hydration, Yes Pt demo correct for hand hygiene, Yes Pt demo correct for verbalize when to call MD Psychosocial - Final Assess - Assessment Depression reassess: Management of stress: Met, Management of depression: Met, Practicing interventions: Met Tobacco - Final Assessment - Program Goals Tobacco Program Goals: Complete smoking cessation. Attend education classes. Improve Knowledge Test score - Stage of Change Stages of Change:: Action - Learning Barriers Learning Barriers: Participates in education - Family Support Do you have family support?: Yes - Tobacco Use Tobacco Use: Non-smoker - Intervention Education Schedule Given:: Yes - Education Education Goal Reached?: Yes Nutrition/Wt Mgmt - Final - Weight Management Final Weight Assessment: Wt stable Weight:: 173 lb 8 oz Weight Goals Progress:: Goal met Patient Health Questionnaire Discharge Assessment 1. Little interest or pleasure in doing things: Not at all 2. Feeling down, depressed, or hopeless: Not at all 3. Trouble falling or staying asleep, or sleeping too much: Not at all 4. Feeling tired or having little energy: Not at all 5. Poor appetite or overeating: Not at all 6. Feeling bad about yourself -- or that you are a failure or have let yourself or your family down: Not at all 7. Trouble concentrating on things, such as reading the newspaper or watching television: Not at all 8. Moving or speaking so slowly that other people could have noticed. Or the opposite - being so fidgety or restless that you have been moving around a lot more than usual: Not at all 9. Thoughts that you would be better off , or of hurting yourself in some way: Not at all Total Score: 0 COPD Knowledge Test Initial COPD is a lung disease that:: Makes it hard to breathe & gets worse over time In the [place] the term COPD describes 2 main lung conditions:: Emphysema & chronic bronchitis The most common lung irritant that causes COPD is:: Cigarette smoke Common signs and symptoms of COPD include:: An ongoing cough/cough that produces a large amount of mucus, & SOB If you have COPD, what steps can you take?: All of the above Swelling of the ankles is common in COPD:: False Fatigue [tiredness] is common in COPD:: True Wheezing is common in COPD:: True Crushing chest pain is common in COPD:: False Rapid weight loss is common in COPD:: False Breathlessness is a normal response to exercise: True Exercise should be avoided if it makes you short of breath: False All bronchodilators act within 10 minutes: False A spacer device increases the medication to the lungs: True Annual flu vaccine is recommended for pts w/lung disease: True COPD Knowledge Test Total Score:: 15 COPD Assessment Test [CAT] - Questions Never cough = 0, Cough all the time = 5: 2 No phlegm = 0, Chest full of phlegm = 5: 1 No chest tightness = 0, Chest very tight = 5: 3 No breathless w/exertion = 0, Very breathless w/exertion = 5: 2 No limitations w/activity = 0, Very limited w/activity = 5: 1 Confident leaving home = 0, Not at all confident = 5: 2 Sleep soundly = 0, Don't sleep soundly = 5: 3 Lots of energy = 0, No energy at all = 5: 1 Total CAT score:: 15 Self-Efficacy Discharge Assessment We would like to know how confident you are in doing certain activities. Please select your confidence level for:: Select your confidence level for the following using the scale 1-10 where 1 is not at all confident and 10 is totally confident. Your score is the average of all 6 responses. Fatigue: How confident are you that you can keep the fatigue caused by your disease from interfering with the things you want to do? Select Number: 10 Physical Discomfort or Pain: How confident are you that you can keep the physical discomfort or pain of your disease from interfering with the things you want to do? Select Number: 10 Emotional Distress: How confident are you that you can keep the emotional distress caused by your disease from interfering with the things you want to do? Select Number: 10 Other Symptoms or Health Problems: How confident are you that you can keep other symptoms or health problems from interfering with the things you want to do? Select Number: 10 Different Tasks and Activities: How confident are you that you can do the different tasks and activities needed to manage your health condition so as to reduce your need to see a doctor? Select Number: 10 Medication: How confident are you that you can do things other than just taking medication to reduce how much your illness affects your everyday life? Select Number: 10 Total Score:: 10 Nutrition Survey - Nutrition Survey Instructions Scoring Instructions: Scoring is as follows: Yes = 1 points. No = 0 point. Patient score that is >/=12 is considered to be at potential nutritional risk and could benefit from a referral to a registered dietitian. - Nutrition Survey Discharge Have you lost >10 lbs over the past 2 months without trying?: No Are you following a special diet at home for diabetes, low fat, or low salt?: Yes Are you interested in meeting with a dietitian for help understanding your diet? : No Do you eat less than 3 meals a day?: No Do you eat fatty meats (oconnor, sausage, ribs, etc), fried foods, desserts, large amounts of salad dressings, margarine, butter, or cheese most days?: No Do you have food allergies? [Enter types in comment field]: No Do you eat in restaurants more than 3 times a week?: No Do you season food with salt, seasoning salt, or garlic salt?: No Do you used canned, boxed, frozen meals, or soups, seasoning packets?: Yes Total Score:: 2
== END 2018-02-07 23:59 ==
LOC: PR 08:00
PROVIDERS: Family Provider Family Medicine; PCP Family Medicine; Visit Provider Internal Medicine Critical Care Medicine
DX: J44.9 Chronic obstructive pulmonary disease, unspecified (principal)
CPT/HCPCS: 97150; G0424

== ENCOUNTER → 2018-04-17 12:55 | Outpatient (CLI) | payer MEDICARE, OTHER, SELFPAY ==
--- NOTE | 2018-04-18 11:19 | PFT ---
INTRODUCTION: The patient is a 73-year-old male that presents for pulmonary function testing secondary to a diagnosis of COPD. Respiratory therapy reports good patient effort. Bronchodilators were used during testing. INTERPRETATION: Forced expiration spirometry demonstrates the presence of a very severe large airways obstructive ventilatory defect. There was a significant response to aerosolized bronchodilators noted. Spirograms and flow volume loop are consistent with underlying obstructive lung disease. Body plethysmography was performed and reveals an elevated RV to 153% of predicted, indicative of underlying air trapping. Diffusing capacity by single breath CO is severely reduced at 35% of predicted. When compared to previous pulmonary function studies dated May 2017 there has been a 20% reduction in the patient's FEV1. IMPRESSION: These pulmonary function studies demonstrate the presence of a partially reversible very severe large airways obstructive ventilatory defect with associated air trapping and reduction in diffusing capacity. There has been worsening in the patient's PFTs since 2016, as noted above.
== END ==
PROVIDERS: Family Provider Family Medicine; PCP Family Medicine; Referring Provider Nurse Practitioner Acute Care; Visit Provider Nurse Practitioner Acute Care
DX: J44.9 Chronic obstructive pulmonary disease, unspecified (principal)
CPT/HCPCS: 94060; 94726; 94729

== ENCOUNTER → 2018-04-18 12:19 | Outpatient (CLI) | payer MEDICARE, OTHER, SELFPAY ==
[2018-04-18 12:55] VITALS: PULSE 72; PULSE 74; PULSE 79; PULSE 80; PULSE 82; PULSE 85; O2SAT 88; O2SAT 89; O2SAT 90; O2SAT 91; O2SAT 92; O2SAT 93
--- NOTE | 2018-04-18 13:00 | CPS ---
Pt arrived on 6L intermittent flow, spo2 84%. Pt switched to continuous flow and titrated to maintain saturation before start of test. Pt stated he goes to work at 8am every morning for 3.5 hours without oxygen. Pt also said he titrates his oxygen depending on exertion. Risks of low spo2 explained to patient, patient insisted that his physicians are aware of his oxygen use, and normal low spo2.
--- NOTE | 2018-04-18 14:21 | PCM.PSN.6M ---
PSN 6 Minute Walk Test - 6 Minute Walk Test 6 Minute Walk Test: 6 Minute Walk Test PSN:6-Minute Walk Test Start: 04/18/18 12:55 Freq: Status: Active Protocol: [id number].6MINW Document 04/18/18 12:55 SMB (Rec: 04/18/18 12:59 SMB [id number]) 6 Minute Walk Test Date Performed 04/18/18 Time Performed 12:29 Height 5 ft 10 in Weight: 175 lb Weight in Pounds 175.[address]: Azucena Bethea Assistive device used: None Pre-test Oxygen Flow Rate (L/min) (L/min) 4 Oxygen Delivery Method Nasal Cannula Pulse Ox (%) 90 Pulse Rate (60-100 beats/min) 74 Dyspnea Alicja Scale (0-10) 3 Exertion Alicja Scale (6-20) 11 1st minute Oxygen Flow Rate (L/min) (L/min) 4 Oxygen Delivery Method Nasal Cannula Pulse Ox (%) 91 Pulse Rate (60-100 beats/min) 82 2nd minute Oxygen Flow Rate (L/min) (L/min) 4 Oxygen Delivery Method Nasal Cannula Pulse Ox (%) 89 Pulse Rate (60-100 beats/min) 72 3rd minute Oxygen Flow Rate (L/min) (L/min) 6 Oxygen Delivery Method Nasal Cannula Pulse Ox (%) 88 Pulse Rate (60-100 beats/min) 85 4th minute Oxygen Flow Rate (L/min) (L/min) 6 Oxygen Delivery Method Nasal Cannula Pulse Ox (%) 88 Pulse Rate (60-100 beats/min) 79 Number of Rests Taken 1 5th minute Oxygen Flow Rate (L/min) (L/min) 6 Oxygen Delivery Method Nasal Cannula Pulse Ox (%) 91 Pulse Rate (60-100 beats/min) 79 6th minute Oxygen Flow Rate (L/min) (L/min) 6 Oxygen Delivery Method Nasal Cannula Pulse Ox (%) 93 Pulse Rate (60-100 beats/min) 80 Post-test Oxygen Flow Rate (L/min) (L/min) 6 Oxygen Delivery Method Nasal Cannula Pulse Ox (%) 92 Pulse Rate (60-100 beats/min) 74 Dyspnea Alicja Scale (0-10) 4 Exertion Alicja Scale (6-20) 13 Full Laps Walked 16 Partial Lap, Number of Tiles Walked 16 Total Distance Walked (ft) 960 04/18/18 13:00 Cardiopulmonary Services by Radha Roman Pt arrived on 6L intermittent flow, spo2 84%. Pt switched to continuous flow and titrated to maintain saturation before start of test. Pt stated he goes to work at 8am every morning for 3.5 hours without oxygen. Pt also said he titrates his oxygen depending on exertion. Risks of low spo2 explained to patient, patient insisted that his physicians are aware of his oxygen use, and normal low spo2. Initialized on 04/18/18 13:00 - END OF NOTE - Interpretation Interpretation: The patient ambulated 960 feet over the course of 6 minutes on supplemental oxygen without assistive devices or breaks. The patient arrived to testing on 6 L/min of intermittent flow supplemental O2 with an oxygen saturation of 84%. The patient was transitioned to continuous flow supplemental oxygen and required 4 L/min prior to the initiation of the test to maintain appropriate oxygen saturations. With ambulation, the mery oxygen saturation was 88%, requiring an escalation in his continuous flow supplemental oxygen to 6 L/min. - Recommendations Recommendations: The patient should utilize 4 L/min of continuous flow supplemental oxygen at rest and 6 L/min of continuous flow supplemental oxygen with exertion. Close interval follow-up is recommended.
== END ==
PROVIDERS: Family Provider Family Medicine; PCP Family Medicine; Referring Provider Nurse Practitioner Acute Care; Visit Provider Nurse Practitioner Acute Care
DX: J44.9 Chronic obstructive pulmonary disease, unspecified (principal)
CPT/HCPCS: 94618

== ENCOUNTER → 2019-02-08 | Outpatient (CLI) | payer MEDICARE, OTHER, SELFPAY ==
[2019-01-16 08:29] VITALS: BMI 23.9
--- NOTE | 2019-02-08 10:49 | ECHOD_ITS ---
Reason For Study: DYSPNEA Procedure This was a 2D Doppler, Color Flow transthoracic echocardiogram. Poor parasternal image quality d/t underlying pulmonary disease process. The study was technically difficult. Exam performed in department. Left Ventricle Borderline to mildly dilated left ventricle. Mild segmental systolic dysfunction (see wall motion). The estimated ejection fraction is 40 %. Posterior-Basal: Hypokinetic. Infero-Basal: Akinetic. Basal inferoseptal: Hypokinetic. Mid-Anterior : Hypokinetic. Mid-Lateral : Hypokinetic. Mid-Posterior: Hypokinetic. Mid-Inferior: Akinetic. Mid-inferoseptal : Hypokinetic. Mid-anteroseptal : Hypokinetic. Iuka : Hypokinetic. Right Ventricle Normal RV size. Normal systolic function. Atria Normal left atrium. Normal right atrium. No doppler evidence for ASD. Mitral Valve There is no mitral annular calcification. Normal mitral valve. Mild (1+) mitral valve insufficiency. Tricuspid Valve Normal tricuspid valve. Trivial tricuspid valve insufficiency. Right ventricular systolic pressure estimated to be 31 mmHg. Aortic Valve The aortic valve is not well visualized. Trivial aortic valve insufficiency. Pulmonic Valve The pulmonic valve is not well visualized. Great Vessels Normal sized aortic root. Pericardium/Pleural No pericardial effusion. MMode/2D Measurements & Calculations LVIDd: 5.7 cm IVSd: 0.95 cm Ao root diam: 3.3 cm LVIDs: 4.7 cm LVPWd: 0.92 cm FS: 16.6 % LAV(MOD-bp): 50.2 ml LA A4 area: 18.3 cm2 LA dimension(2D): 3.6 cm LAV(MOD-bp) Indexed: 26.0 ml/m2 LAV(MOD-sp2): 47.4 ml LAV(MOD-sp4): 50.3 ml RA A4 area: 13.2 cm2 Time Measurements MV dec time: 0.24 sec Doppler Measurements & Calculations MV E max bal: 71.6 cm/sec Lat Peak E' Bal: 7.8 cm/sec Med Peak E' Bal: 5.3 cm/sec MV A max bal: 60.2 cm/sec E/E' lat: 9.2 E/E' med: 13.5 MV E/A: 1.2 MV V2 max: 515.6 cm/sec Ao V2 max: 116.1 cm/sec LV V1 max: 106.9 cm/sec MV max P.4 mmHg Ao max P.4 mmHg LV V1 max P.6 mmHg MV V2 mean: 396.7 cm/sec MV mean P.8 mmHg MV V2 VTI: 211.7 cm PA V2 max: 82.6 cm/sec TR max bal: 259.9 cm/sec TR max P.5 mmHg Interpretation Summary The study was technically difficult. Borderline to mildly dilated left ventricle. Mild segmental systolic dysfunction (see wall motion). The estimated ejection fraction is 40 %. Mild (1+) mitral valve insufficiency. Trivial tricuspid valve insufficiency. Trivial aortic valve insufficiency. Right ventricular systolic pressure estimated to be 31 mmHg. Transmitral diastolic flow velocities suggest diastolic dysfunction (pseudonormal pattern). Ordering Physician: Harsh Manzo Referring Physician: FERNANDEZ DICKINSON Performed By: Lyndsey Maurice RDCS, RVT
== END | disposition home or self-care (01) ==
LOC: CVS 10:43
PROVIDERS: Family Provider Family Medicine; PCP Family Medicine; Referring Provider Internal Medicine Critical Care Medicine; Visit Provider Internal Medicine Critical Care Medicine
DX: J44.9 Chronic obstructive pulmonary disease, unspecified (principal); J96.11 Chronic respiratory failure with hypoxia; R06.02 Shortness of breath
CPT/HCPCS: 93306

== ENCOUNTER → 2019-02-15 | Outpatient (CLI) | payer MEDICARE, OTHER, SELFPAY ==
[2019-01-16 08:29] VITALS: BMI 23.9
--- NOTE | 2019-02-15 11:32 | PFTCOMP ---
COMPLETE PULMONARY FUNCTION TEST INTERPRETATION Brief HPI: Patient is a 73 year old male, currently under the care of Dr. Manzo, who presents to [facility] for complete pulmonary function tests secondary to diagnosis of COPD. Respiratory therapist reports good effort and reproducible results. Interpretation: Forced expiration spirometry shows a very severe large airways obstructive ventilatory defect with an FEV1 of 39% predicted. There is a significant bronchodilator response in FVC and FEV1 by strict ATS criteria. Spirograms are of good quality and plateau slowly, indicating slowly emptying areas of the lungs. The respiratory flow volume loop shows decreased expiratory flow rates at all lung volumes consistent with airway obstruction. Lung volumes by body plethysmography show a normal total lung capacity at 6.06 L, 98% predicted. All other lung volumes are within normal limits. Diffusion capacity by carbon monoxide is reduced at 40% predicted. The airway resistance is elevated. Compared to previous pulmonary function tests from 04/17/2018, there is been improvement in DLCO and air trapping. Impression: Partially reversible very severe large airways obstructive ventilatory defect with a symmetric reduction diffusing capacity, and a pattern consistent with COPD/asthma overlap syndrome.
== END | disposition home or self-care (01) ==
LOC: PSN 07:49
PROVIDERS: Family Provider Family Medicine; PCP Family Medicine; Referring Provider Internal Medicine Critical Care Medicine; Visit Provider Internal Medicine Critical Care Medicine
DX: J44.9 Chronic obstructive pulmonary disease, unspecified (principal)
CPT/HCPCS: 94060; 94726; 94729

== ENCOUNTER 2019-12-24 15:14 | Inpatient (IN) | payer MEDICARE, OTHER, SELFPAY ==
[2019-10-25 08:22] VITALS: BMI 25.1
[2019-12-24 15:16] VITALS: BP 104/65; PULSE 87; RESP 20; TEMP 36.9; O2SAT 91; BMI 26.6
--- NOTE | 2019-12-24 15:37 | EKG12_ITS ---
Test Reason : ILLNESS Blood Pressure : / mmHG Vent. Rate : 078 BPM Atrial Rate : 078 BPM P-R Int : 170 ms QRS Dur : 120 ms QT Int : 392 ms P-R-T Axes : 030 -60 055 degrees QTc Int : 446 ms Sinus rhythm with occasional Premature ventricular complexes Left axis deviation Inferior infarct ,age undetermined Abnormal ECG Confirmed by MADY BAGLEY, CORAZON ([id number]), publications editor DORINA CHÁVEZ ([id number]) on 12/25/2019 11:19:30 AM Referred By: BRYCE Confirmed By:CORAZON EARL MD
--- NOTE | 2019-12-24 15:37 | RAD_ITS ---
STUDY: X-RAY CHEST REASON FOR EXAM: Male, 74 years old. FEVER WITH CHILLS AND WEAKNESS. TECHNIQUE: Portable chest COMPARISON: None. FINDINGS: There are significant bilateral lower lobe pulmonary infiltrates. There are sternal wires. There are old right rib fractures. There is no demonstrated pleural abnormality. Normal size heart. Normal mediastinum and ar. Normal visualized pulmonary arteries. Normal visualized aortic arch and descending thoracic aorta. Normal visualized thoracic spine. Normal visualized ribs, clavicles, and shoulders. There is no demonstrated abnormality of the visualized soft tissue structures of the upper abdomen. RAD/Chest 1 View (Portable) IMPRESSION: Significant bilateral lower lobe pulmonary infiltrates, pneumonia, atypical viral pneumonia cannot be excluded Sternal wires Old right rib fractures Electronically Signed: Deuce Rivera, at 16:50 EDT Tel , Service support ,
--- NOTE | 2019-12-24 15:38 | ED.VIS.GEN ---
History of Present Illness Chief Complaint: Fever Informant: Patient, Family Onset: Today Current Severity: Mild Maximum Severity: Moderate Narrative: She presents with fever, chills, generalized weakness that he noted today. He states he felt well when he got up this morning. 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 He states while there he became very chilled and his legs felt very weak. He went back home and his temperature was 100.4. He did take Tylenol at noon today. He has COPD at baseline and wears 4 to 5 L of oxygen nasal cannula. He states he has his chronic shortness of breath and cough but does not necessarily feel any worse than baseline. He denies chest pain at current but did have sharp chest pain around the left scapula a few days ago. He denies nausea or vomiting. He denies urinary symptoms. - Past Medical History (1) COPD (chronic obstructive pulmonary disease) Status: Chronic (2) Chronic hypoxemic respiratory failure Status: Chronic (3) Hyperlipidemia Status: Chronic (4) Ischemic cardiomyopathy Status: Chronic (5) History of cochlear implant Status: Resolved (6) History of vasectomy Status: Resolved (7) Presence of aortocoronary bypass graft Status: Resolved Comment: CABG x3- ONOFRE to LAD, Free Lt Radial Artery to the OM branch of CX, reverse SVG from the aorta to the distal RCA 08/01/01; Sternal Rewiring with Debridement 06/20/02 Past Medical History - Allergies and Home Meds Allergies/Adverse Reactions: Allergies tiotropium [From Spiriva with HandiHaler] Adverse Reaction (Severe, Verified 12/24/19 15:15) Decreased Urination VITAMIN B12 INJECTION Adverse Reaction (Uncoded 12/24/19 15:15) BLURRED VISION AND HOT FLASH Primary Care Physician: Deuce Baig DO [Primary Care Provider] - Prior records reviewed: Yes Lives: Spouse/ Significant Other Smoking Status: Former smoker Review of Systems General: Reports: Chills, Fever Eyes: Denies: Visual changes - bilaterally ENT: Denies: Bilateral ear pain Cardiovascular: Denies: Chest pain Respiratory: Reports: Dyspnea, Cough Gastrointestinal: Denies: Abdominal pain, Nausea, Vomiting, Diarrhea Genitourinary: Denies: Dysuria Musculoskeletal: Denies: Swelling, Extremity Pain Neurological: Denies: Headache Endocrine: Denies: Polyuria, Polydipsia Hematologic: Denies: Easy bruising Physical Exam Vital Signs/Narrative: Vital Signs Temp Pulse Resp BP Pulse Ox 12/24/19 15:16 98.4 F 87 20 H 104/65 91 Inital Vital Signs reviewed: Yes General: Well nourished, Well developed Head: Normocephalic ENT: Moist mucous membranes Neck: Supple Cardiovascular: Regular rate, Regular rhythm Respiratory: No distress, CTA bilaterally Abdomen: Soft, Nontender Extremities: Nontender Skin: Normal color Neurological: Alert, Oriented x3 Psychological: Normal affect Diagnostic/Tx/Re-eval Impressions Chest X-Ray 12/24/19 15:37 IMPRESSION: Significant bilateral lower lobe pulmonary infiltrates, pneumonia, atypical viral pneumonia cannot be excluded Sternal wires Old right rib fractures Electronically Signed: Deuce Miguel, at 16:50 EDT Tel , Service support , 12/24/19 15:37 Chest 1 View (Portable) [RAD] Stat Laboratory Results 12/24/19 12/24/19 12/24/19 15:40 15:46 15:46 WBC 19.4 H RBC 4.31 L Hgb 13.5 Hct 42.5 MCV 98.6 H MCH 31.3 MCHC 31.8 L RDW Std Deviation 45.1 H RDW Coeff of [place] 12.4 Plt Count 272 MPV 9.3 Immature Gran % (Auto) 0.400 Neut % (Auto) 86.3 H Lymph % (Auto) 6.2 L [place] % (Auto) 6.1 Eos % (Auto) 0.7 Baso % (Auto) 0.3 Absolute Neuts (auto) 16.7 H Absolute Lymphs (auto) 1.21 Nucleated RBC % 0 PT 14.0 INR 1.1 APTT 29.4 Sodium Potassium Chloride Carbon Dioxide Anion Gap BUN Creatinine Estim Creat Clear Calc Est GFR (MDRD) Af Amer Est GFR (MDRD) Non-Af BUN/Creatinine Ratio Glucose Lactic Acid Calcium Total Bilirubin AST ALT Alkaline Phosphatase Troponin I Total Protein Albumin Globulin Albumin/Globulin Ratio COVID-19 (MELY) Negative 12/24/19 12/24/19 15:46 15:46 WBC RBC Hgb Hct MCV MCH MCHC RDW Std Deviation RDW Coeff of [place] Plt Count MPV Immature Gran % (Auto) Neut % (Auto) Lymph % (Auto) [place] % (Auto) Eos % (Auto) Baso % (Auto) Absolute Neuts (auto) Absolute Lymphs (auto) Nucleated RBC % PT INR APTT Sodium 138 Potassium 4.2 Chloride 105 Carbon Dioxide 28.0 Anion Gap 5 BUN 15 Creatinine 1.09 Estim Creat Clear Calc 56.65 Est GFR (MDRD) Af Amer 85 Est GFR (MDRD) Non-Af 70 BUN/Creatinine Ratio 13.8 Glucose 110 H Lactic Acid 2.0 Calcium 8.3 L Total Bilirubin 0.60 AST 14 L ALT 16 Alkaline Phosphatase 79 Troponin I < 0.015 Total Protein 6.9 Albumin 3.4 Globulin 3.5 Albumin/Globulin Ratio 1.0 COVID-19 (MELY) - EKG Initial EKG Interpretation: Sinus Rhythm - Sinus at 78 with occasional PVCs. No acute ST change. - Medical Decision Making Patient was given a liter of IV fluids on arrival. Systolic blood pressure is currently 96. He will receive a second liter. X-ray does show significant chronic changes read as bilateral pneumonia. He is covered with Rocephin and Zithromax. Covid test is negative at this time. Test results discussed with patient and at bedside. He will be admitted for further treatment. ED Disposition - Plan for ED Patient: Disposition: Acute Care Hospital [facility] Diagnosis: Sepsis, Pneumonia Referrals: Deuce Baig DO [Primary Care Provider] -
[2019-12-24 15:55] VITALS: PULSE 78; RESP 23; O2SAT 93; O2SAT 94
[2019-12-24 16:01] LABS: Absolute Lymphocyte Count 1.21 X10^3/uL (0.83-4.51); Absolute Neutrophil Count 16.7 X10^3/uL (2.0-7.7); Basophil# 0.05 X10^3/uL; Basophil% 0.3 % (0-1); Eosinophil# 0.13 X10^3/uL; Eosinophils% 0.7 % (0-5); Hematocrit 42.5 % (40-54); Hemoglobin 13.5 g/dL (13.0-16.5); Lymphocyte # 1.21 X10^3/ul (4.0); Lymphocyte % 6.2 % (19-41); Mean Corp Hgb Conc 31.8 g/dL (32-36); Mean Corpuscular Hgb 31.3 pg (27.0-32.0); Mean Corpuscular Volume 98.6 fL (80-94); Mean Platelet Vol. 9.3 fl (6.2-12.0); Monocyte# 1.19 X10^3/uL; Monocyte% 6.1 % (0-10); NRBC Flagged by Analyzer 0 % (0-5); Neutrophil # 16.71 X10^3/uL (2.7-7.7); Neutrophil % 86.3 % (47-70); Platelet Count 272 K/mm3 (150-450); RBC Distribution Width CV 12.4 % (11.6-14.6); RBC Distribution Width SD 45.1 fl (35.1-43.9); Red Blood Count 4.31 M/mm3 (4.6-6.2); White Blood Count 19.4 K/mm3 (4.4-11.0)
[2019-12-24] MEDS: 0.9% Normal Saline 1,000 ML 999 ML IV ×2 (16:07→18:36)
[2019-12-24 16:15] LABS: International Normalized Ratio 1.1
[2019-12-24 16:16] LABS: Partial Thromboplast Time 29.4 Seconds (24.1-36.2)
[2019-12-24 16:28] LABS: AST(SGOT) 14 U/L (15-37); Alanine Aminotransfer ALT/SGPT 16 U/L (16-61); Albumin, Serum 3.4 g/dL (3.2-5.0); Alkaline Phosphatase 79 U/L (45-117); Anion Gap 5 (5-15); BUN 15 mg/dL (7-18); BUN/Creat Ratio 13.8 RATIO (10-20); Calcium,Total 8.3 mg/dL (8.5-10.1); Chloride 105 mmol/L (98-107); Creatinine, Serum 1.09 mg/dL (0.70-1.30); EST Glomerular Filtration Rate 70 mL/min (>60); Est Glom Filt Rate - Afr Amer 85 mL/min (>60); Estimated Creatinine Clearance 56.65 ml/min; Globulin 3.5 g/dL (2.2-4.2); Glucose 110 mg/dL (74-106); Potassium 4.2 mmol/L (3.5-5.1); Protein, Total 6.9 g/dL (6.4-8.2); Sodium Level 138 mmol/L (136-145)
[2019-12-24 16:48] LABS: Reflex Lactate? Y
[2019-12-24 17:13] LABS: Probe Check PASS; Specimen Processing Control PASS
--- NOTE | 2019-12-24 18:23 | NURSING ---
DR HANSEN FOR ER DOC
[2019-12-24] MEDS: Ceftriaxone 1 GM/50 ML BAG IV (18:35)
[2019-12-24 18:46] VITALS: BP 92/82; PULSE 60; RESP 18; TEMP 36.9; O2SAT 97
[2019-12-24 18:55] LABS: Bacteria 0 SEEN /hpf (None Seen); Mucous, Urine 0 SEEN /hpf (<or=2+); Red Blood Cells-Urine 0 SEEN /hpf (0-5); White Blood Cells 0 SEEN /hpf (0-5)
[2019-12-24 19:03] LABS: Color, Urine Yellow (Yellow); Glucose, Dipstick Normal (Normal); Ketone-Dipstick Negative (Negative); Leukocyte Esterase-Dipstick Negative /ul (Negative); Nitrite-Dipstick Negative (Negative); Occult Blood-Urine Negative /ul (Negative); Protein-Dipstick Negative (Negative); Specific Gravity, Urine 1.005 (1.002-1.030); Urine Bilirubin Dipstick Negative (Negative); Urine Clarity Sl. Cloudy (Clear); Urine Urobilinogen Normal (Normal)
[2019-12-24 19:14] LABS: Squamous Epithelial Cells - UA 0-5 SEEN /hpf (0-5)
--- NOTE | 2019-12-24 19:55 | HP.PCM_ITS ---
Problem List (1) Sepsis Status: Suspected (2) Pneumonia Status: Acute (3) Presence of aortocoronary bypass graft Status: Resolved Comment: CABG x3- ONOFRE to LAD, Free Lt Radial Artery to the OM branch of CX, reverse SVG from the aorta to the distal RCA 08/01/01; Sternal Rewiring with Debridement 06/20/02 (4) Hyperlipidemia Status: Chronic Qualifiers: Hyperlipidemia type: unspecified Qualified Code(s): E78.5 - Hyperlipidemia, unspecified (5) Ischemic cardiomyopathy Status: Chronic (6) Stage 3 severe COPD by GOLD classification Status: Chronic Comment: FEV1 37% of predicted (7) Tobacco dependence in remission Status: Chronic (8) Chronic hypoxemic respiratory failure Status: Chronic History of Present Illness Date of Admission: 12/24/19 Chief Complaint: shortness of breath The patient is a 74 year old male patient with a past medical history of COPD, coronary artery disease who presents to the emergency room with 1 day of fever and chills and shortness of breath. 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 He decided he did not have it anymore to work that day so he went home where he had a decreased appetite and later took his temperature and found it to be 100.4 with chills. He noticed himself to be more short of breath than usual despite wearing oxygen at home routinely for his COPD. He denies contacts with known COVID patients. And his initial COVID-19 test was negative. Laboratory studies reveal a white blood cell count elevated at 19.4, hemoglobin 13.5, hematocrit 4 2.5, platelets 272, neutrophil of 86.3% indicating a left shift, INR 1.1, chest x-ray shows bilateral lower lobe infiltrates, sodium 138, potassium 4.2, chloride 105, bicarb 28, BUN 15, creatinine 1.07, glucose 110, lactate 2.0, UA negative, COVID-19 test negative. Despite most likely being bacterial pneumonia of community-acquired nature on top of COPD the patient will be admitted and placed at the general medical floor level in the ICU only due to the necessity for isolation for the second COVID-19 test which is pending in the morning. Past Medical History Past Medical History (Chronic Problems): Chronic Problems (Last Reviewed 10/25/19 @ 08:[address] Harsh Manzo, DO) Premature ventricular contraction (Chronic) Hyperlipidemia (Chronic) Ischemic cardiomyopathy (Chronic) Atherosclerotic heart disease of [place] coronary artery without angina pectoris (Chronic) CABG x3- ONOFRE to LAD, Free Lt Radial Artery to the OM branch of CX, reverse SVG from the aorta to the distal RCA 08/01/01; Sternal Rewiring with Debridement 06/20/02 Stage 3 severe COPD by GOLD classification (Chronic) FEV1 37% of predicted Nocturnal hypoxia (Chronic) Tobacco dependence in remission (Chronic) Chronic hypoxemic respiratory failure (Chronic) COPD (chronic obstructive pulmonary disease) (Chronic) Medical History: Medical History (Last Reviewed 10/25/19 @ 08:[address] Harsh Manzo, DO) Displacement of other ocular prosthetic devices, implants and grafts, initial encounter (Acute) T85.328A Old myocardial infarction (Acute) I25.2 Claudication, intermittent (Acute) I73.9 Premature ventricular contraction (Chronic) I49.3 Hyperlipidemia (Chronic) E78.5 Ischemic cardiomyopathy (Chronic) I25.5 Atherosclerotic heart disease of [place] coronary artery without angina pectoris (Chronic) I25.10 CABG x3- ONOFRE to LAD, Free Lt Radial Artery to the OM branch of CX, reverse SVG from the aorta to the distal RCA 08/01/01; Sternal Rewiring with Debridement 06/20/02 Nocturnal hypoxia (Chronic) G47.34 Tobacco dependence in remission (Chronic) F17.201 Chronic hypoxemic respiratory failure (Chronic) J96.11 COPD (chronic obstructive pulmonary disease) (Chronic) J44.9 Allergies tiotropium [From Spiriva with HandiHaler] Adverse Reaction (Severe, Verified 12/24/19 15:15) Decreased Urination VITAMIN B12 INJECTION Adverse Reaction (Uncoded 12/24/19 15:15) BLURRED VISION AND HOT FLASH Home Medications: Ambulatory Orders Medication Instructions Recorded nitroglycerin 0.4 mg sublingual 0.4 mg SUBLINGUAL Q5-15M PRN #25 11/29/17 tablet tab niacin 1,000 mg tablet,extended 1,000 mg PO QHS #90 tab 06/19/18 release 24 hr arformoterol 15 mcg/2 mL solution 15 mcg INHALATION DAILY ml 01/17/19 for nebulization budesonide 0.5 mg/2 mL suspension 0.5 mg INHALATION DAILY 01/17/19 for nebulization ipratropium 0.5 mg-albuterol 3 mg 3 ml INHALATION .QID #360 ml 01/17/19 (2.5 mg base)/3 mL nebulization soln pravastatin 40 mg tablet 40 mg PO QHS #90 tab 08/30/19 isosorbide mononitrate 30 mg 30 mg PO DAILY #90 tab 09/03/19 tablet,extended release 24 hr metoprolol succinate 25 mg 12.5 mg PO DAILY #45 tab 09/03/19 tablet,extended release 24 hr acetaminophen 500 mg capsule 500 - 1,000 mg PO DAILY PRN PRN 10/25/19 cap albuterol sulfate 90 mcg/actuation 2 puff INHALATION Q4H PRN #1 device 10/25/19 aerosol inhaler Aspirin E.C. [Ecotrin] 81 mg PO DAILY@199912/24/19 Losartan Potassium [Cozaar] 50 mg PO BID 12/24/19 Surgical History: Surgical History (Last Reviewed 10/25/19 @ 08:[address] Harsh Manzo, DO) History of vasectomy (Resolved) Z98.52 Postsurgical percutaneous transluminal coronary angioplasty (PTCA) status (Resolved) Onset Date: ~1989 Z98.61 w/stent 1989 History of cochlear implant (Resolved) Z96.21 Presence of aortocoronary bypass graft (Resolved) Onset Date: ~08/01/01 Z95.1 CABG x3- ONOFRE to LAD, Free Lt Radial Artery to the OM branch of CX, reverse SVG from the aorta to the distal RCA 08/01/01; Sternal Rewiring with Debridement 06/20/02 Aortocoronary bypass status (Inactive) Onset Date: ~08/01/01 Z95.1 CABG x3- ONOFRE to LAD, Free Lt Radial Artery to the OM branch of CX, reverse SVG from the aorta to the distal RCA 08/01/01; Sternal Rewiring with Debridement 06/20/02 Lives: Spouse/ Significant Other Smoking Status: Current some day smoker Tobacco Use: Vapor - *Family History Maternal Family History: Family History (Last Reviewed 10/25/19 @ 08:[address] Harsh Manzo DO) Sister CAD (coronary artery disease) Hx of CABG Sister Breast cancer Brother COPD (chronic obstructive pulmonary disease) History Items: No pertinent history Review of Systems Constitutional: Reports: Chills, Fever, Weakness. Denies: Weight Change HEENT: Denies: Head Aches, Sinus Congestion, Sinus Drainage Cardiovascular: Denies: Chest Pain, Palpitations Respiratory: Reports: Shortness of breath at rest. Denies: Cough, Sputum production Gastrointestinal: Denies: Abdominal Pain, Nausea, Vomiting Genitourinary: Denies: Dysuria Musculoskeletal: Denies: Joint Pain, Joint Tenderness Skin: Denies: Rash, Wounds Neurological: Denies: Numbness, Tingling, Focal weakness Psychiatric: Denies: Anxiety, Depression, Homicidal Ideations, Suicidal Ideations Hematologic/ Lymphatic: Denies: Easy Bruising, Easy Bleeding VTE Information - Inpt Only VTE Present on Admission: No VTE Mechan Device Prophylaxis: None VTE Pharm Prophylaxis ordered?: Yes Patient Problems: Active and Suspected Problems (Last Reviewed 10/25/19 @ 08:[address] Harsh Manzo, DO) Sepsis (Suspected) Pneumonia (Acute) - Physical Exam Vitals/I&O's: Vital Signs Temp Pulse Resp BP Pulse Ox 98.4 F 60 18 92/82 H 97 12/24/19 18:46 12/24/19 18:46 12/24/19 18:46 12/24/19 18:46 12/24/19 18:46 Oxygen Flow Rate (L/min) 4 Oxygen Delivery Method Nasal Cannula Weight: 175 lb Body Mass Index (BMI) 26.6 Intake and Output for Last 24 Hours 12/22/19 12/23/19 12/24/19 23:59 23:59 23:59 Intake Total 1050 / 1050 Balance 1050 / 1050 General: Alert, Oriented x3, Cooperative HEENT: Atraumatic, Normocephalic Neck: Supple Lungs: Clear to auscultation, No rhonchi, No wheeze, No rales, Diminished Cardiovascular: Regular rate, Normal S1, Normal S2, No murmurs Abdomen: Bowel Sounds Present, Soft, Non Tender Extremities: No edema Skin: No rashes Musculoskeletal: No Tenderness to Palpation of Joints or Extremities Neurological: Neuro grossly intact Psych/Mental Status: Normal Affect, Appropriate Laboratory Results 12/24/19 15:40: COVID-19 (MELY) Negative 12/24/19 15:46: WBC 19.4 H, RBC 4.31 L, Hgb 13.5, Hct 42.5, MCV 98.6 H, MCH 31.3, MCHC 31.8 L, RDW Std Deviation 45.1 H, RDW Coeff of [place] 12.4, Plt Count 272, MPV 9.3, Immature Gran % (Auto) 0.400, Neut % (Auto) 86.3 H, Lymph % (Auto) 6.2 L, [place] % (Auto) 6.1, Eos % (Auto) 0.7, Baso % (Auto) 0.3, Absolute Neuts (auto) 16.7 H, Absolute Lymphs (auto) 1.21, Nucleated RBC % 0 12/24/19 15:46: PT 14.0, INR 1.1, APTT 29.4 12/24/19 15:46: Sodium 138, Potassium 4.2, Chloride 105, Carbon Dioxide 28.0, Anion Gap 5, BUN 15, Creatinine 1.09, Estim Creat Clear Calc 56.65, Est GFR (MDRD) Af Amer 85, Est GFR (MDRD) Non-Af 70, BUN/Creatinine Ratio 13.8, Glucose 110 H, Calcium 8.3 L, Total Bilirubin 0.60, AST 14 L, ALT 16, Alkaline Phosphatase 79, Troponin I < 0.015, Total Protein 6.9, Albumin 3.4, Globulin 3.5, Albumin/Globulin Ratio 1.0 12/24/19 15:46: Lactic Acid 2.0 12/24/19 18:45: Urine Color Yellow, Urine Clarity Sl. Cloudy, Urine pH 7.0, Ur Specific [place] 1.005, Urine Protein Negative, Urine Glucose (UA) Normal, Urine Ketones Negative, Urine Occult Blood Negative, Urine Nitrite Negative, Urine Bilirubin Negative, Urine Urobilinogen Normal, Ur Leukocyte Esterase Negative, Urine RBC 0 SEEN, Urine WBC 0 SEEN, Ur Squamous Epith Cells 0-5 SEEN, Urine Bacteria 0 SEEN, Urine Mucus 0 SEEN Assessment/Plan All Active Problems (Last Reviewed 10/25/19 @ 08:[address] Harsh Manzo, DO) Pneumonia (Acute) Displacement of other ocular prosthetic devices, implants and grafts, initial encounter (Acute) History of vasectomy (Resolved) Postsurgical percutaneous transluminal coronary angioplasty (PTCA) status (Resolved ~1989) History of cochlear implant (Resolved) Presence of aortocoronary bypass graft (Resolved ~08/01/01) Old myocardial infarction (Acute) Claudication, intermittent (Acute) Chronic Problems (Last Reviewed 10/25/19 @ 08:[address] Harsh Manzo, DO) Premature ventricular contraction (Chronic) Hyperlipidemia (Chronic) Ischemic cardiomyopathy (Chronic) Atherosclerotic heart disease of [place] coronary artery without angina pectoris (Chronic) CABG x3- ONOFRE to LAD, Free Lt Radial Artery to the OM branch of CX, reverse SVG from the aorta to the distal RCA 08/01/01; Sternal Rewiring with Debridement 06/20/02 Stage 3 severe COPD by GOLD classification (Chronic) FEV1 37% of predicted Nocturnal hypoxia (Chronic) Tobacco dependence in remission (Chronic) Chronic hypoxemic respiratory failure (Chronic) COPD (chronic obstructive pulmonary disease) (Chronic) Plan 1. Community-acquired pneumonia complicated by chronic respiratory failure due to COPD?Place patient in ICU pending second COVID 19 result. We will continue isolation precautions until that second result is negative. Will place patient on Rocephin and azithromycin, continue oxygen support add DuoNeb INH every 4 hours as needed, will allow patient regular diet therefore no need for IV fluids tonight. Repeat CBC BMP in the morning 2. COVID-19 rule out?repeat COVID-19 test in a.m. 3. Upper lipidemia?continue statin 4. DVT prophylaxis Place patient on Lovenox Patient was already feeling better than he had all day at the time of my evaluation and therefore would anticipate an early discharge home tomorrow provided all results are improving and are consistent with safe discharge. OBSV E&M: [id number] Initial observation care L2
[2019-12-24 19:57] VITALS: BP 114/61; PULSE 61; RESP 19; TEMP 36.8; O2SAT 97
[2019-12-24 20:35] VITALS: BMI 26.1
[2019-12-24 20:40] VITALS: BP 128/58; PULSE 62; RESP 19; TEMP 36.8; O2SAT 95
[2019-12-24] MEDS: Aspirin E.C. 81 MG Tablet PO (21:17)
[2019-12-24] MEDS: Pravastatin 40 MG Tablet PO (21:17)
[2019-12-24] MEDS: Ipratropium/Albuterol Sulfate 3 ML AMPUL.NEB INHALATION (22:02)
[2019-12-24 22:03] VITALS: PULSE 68; RESP 24; O2SAT 93
[2019-12-24] MEDS: Oxymetazoline 0.05% 1 SPRAY SPRAY.BTL 2 SPRAY NASAL (23:08)
[2019-12-25 02:40] VITALS: BP 106/57; PULSE 62; RESP 18; TEMP 36.8; O2SAT 94
[2019-12-25 05:26] LABS: Absolute Lymphocyte Count 1.77 X10^3/uL (0.83-4.51); Absolute Neutrophil Count 8.4 X10^3/uL (2.0-7.7); Basophil# 0.05 X10^3/uL; Basophil% 0.4 % (0-1); Eosinophil# 0.23 X10^3/uL; Eosinophils% 2.1 % (0-5); Hematocrit 40.8 % (40-54); Hemoglobin 12.9 g/dL (13.0-16.5); Lymphocyte # 1.77 X10^3/ul (4.0); Lymphocyte % 15.9 % (19-41); Mean Corp Hgb Conc 31.6 g/dL (32-36); Mean Corpuscular Volume 98.1 fL (80-94); Mean Platelet Vol. 9.1 fl (6.2-12.0); Monocyte# 0.72 X10^3/uL; Monocyte% 6.5 % (0-10); NRBC Flagged by Analyzer 0 % (0-5); Neutrophil # 8.36 X10^3/uL (2.7-7.7); Neutrophil % 74.9 % (47-70); Platelet Count 243 K/mm3 (150-450); RBC Distribution Width CV 12.8 % (11.6-14.6); RBC Distribution Width SD 45.9 fl (35.1-43.9); Red Blood Count 4.16 M/mm3 (4.6-6.2); White Blood Count 11.2 K/mm3 (4.4-11.0)
[2019-12-25 05:39] LABS: Anion Gap 5 (5-15); BUN 12 mg/dL (7-18); BUN/Creat Ratio 13.9 RATIO (10-20); Chloride 108 mmol/L (98-107); Creatinine, Serum 0.87 mg/dL (0.70-1.30); EST Glomerular Filtration Rate 91 mL/min (>60); Est Glom Filt Rate - Afr Amer 110 mL/min (>60); Estimated Creatinine Clearance 70.98 ml/min; Glucose 106 mg/dL (74-106); Potassium 4.2 mmol/L (3.5-5.1); Sodium Level 140 mmol/L (136-145)
[2019-12-25] MEDS: Ipratropium/Albuterol Sulfate 3 ML AMPUL.NEB INHALATION (07:08)
[2019-12-25] MEDS: Budesonide Respules 0.5 MG/2 ML AMPUL.NEB. INHALATION (07:08)
[2019-12-25 07:09] VITALS: PULSE 63; RESP 18; O2SAT 89
--- NOTE | 2019-12-25 07:23 | PCM.PN.HOSP ---
Reason for Visit: Pneumonia Subjective: Patient is a 74-year-old gentleman with underlying history of COPD who presented with fever chills and fatigue and cough. Imaging studies obtained on admission demonstrated Significant bilateral lower lobe pulmonary infiltrates, pneumonia, atypical viral pneumonia cannot be excluded Objective: GENERAL: cooperative HEENT: Atraumatic; EYES; Anicteric, Normal Conjunctiva NECK; supple, normal thyroid, RESPIRATORY: Diminished to auscultation CARDIOVASCULAR: Regular S1 S2, GI: soft, normoactive bowel sounds, : No Renal angle tenderness; EXTREMITIES: No edema, no clubbing, MUSCULOSKELETAL: no muscle waisting NEURO: Awake; no lateralizing signs. SKIN: No Rash PSYCH; Flat affect Vitals/I&O's: Vital Signs Temp Pulse Resp BP Pulse Ox 98.3 F 63 18 106/57 L 89 12/25/19 02:40 12/25/19 07:09 12/25/19 07:09 12/25/19 02:40 12/25/19 07:09 Oxygen Flow Rate (L/min) 5 Oxygen Delivery Method Nasal Cannula Weight: 78 kg Body Mass Index (BMI) 26.1 Intake and Output for Last 24 Hours 12/23/19 12/24/19 12/25/19 23:59 23:59 23:59 Intake Total 2545 / 2545 120 / 120 Output Total 700 / 700 625 / 625 Balance 1845 / 1845 -505 / -505 Laboratory Results 12/24/19 15:40: COVID-19 (MELY) Negative 12/24/19 15:46: WBC 19.4 H, RBC 4.31 L, Hgb 13.5, Hct 42.5, MCV 98.6 H, MCH 31.3, MCHC 31.8 L, RDW Std Deviation 45.1 H, RDW Coeff of [place] 12.4, Plt Count 272, MPV 9.3, Immature Gran % (Auto) 0.400, Neut % (Auto) 86.3 H, Lymph % (Auto) 6.2 L, [place] % (Auto) 6.1, Eos % (Auto) 0.7, Baso % (Auto) 0.3, Absolute Neuts (auto) 16.7 H, Absolute Lymphs (auto) 1.21, Nucleated RBC % 0 12/24/19 15:46: PT 14.0, INR 1.1, APTT 29.4 12/24/19 15:46: Sodium 138, Potassium 4.2, Chloride 105, Carbon Dioxide 28.0, Anion Gap 5, BUN 15, Creatinine 1.09, Estim Creat Clear Calc 56.65, Est GFR (MDRD) Af Amer 85, Est GFR (MDRD) Non-Af 70, BUN/Creatinine Ratio 13.8, Glucose 110 H, Calcium 8.3 L, Total Bilirubin 0.60, AST 14 L, ALT 16, Alkaline Phosphatase 79, Troponin I < 0.015, Total Protein 6.9, Albumin 3.4, Globulin 3.5, Albumin/Globulin Ratio 1.0 12/24/19 15:46: Lactic Acid 2.0 12/24/19 18:45: Urine Color Yellow, Urine Clarity Sl. Cloudy, Urine pH 7.0, Ur Specific [place] 1.005, Urine Protein Negative, Urine Glucose (UA) Normal, Urine Ketones Negative, Urine Occult Blood Negative, Urine Nitrite Negative, Urine Bilirubin Negative, Urine Urobilinogen Normal, Ur Leukocyte Esterase Negative, Urine RBC 0 SEEN, Urine WBC 0 SEEN, Ur Squamous Epith Cells 0-5 SEEN, Urine Bacteria 0 SEEN, Urine Mucus 0 SEEN 12/25/19 05:20: WBC 11.2 H, RBC 4.16 L, Hgb 12.9 L, Hct 40.8, MCV 98.1 H, MCH 31.0, MCHC 31.6 L, RDW Std Deviation 45.9 H, RDW Coeff of [place] 12.8, Plt Count 243, MPV 9.1, Immature Gran % (Auto) 0.200, Neut % (Auto) 74.9 H, Lymph % (Auto) 15.9 L, [place] % (Auto) 6.5, Eos % (Auto) 2.1, Baso % (Auto) 0.4, Absolute Neuts (auto) 8.4 H, Absolute Lymphs (auto) 1.77, Nucleated RBC % 0 12/25/19 05:20: Sodium 140, Potassium 4.2, Chloride 108 H, Carbon Dioxide 27.0, Anion Gap 5, BUN 12, Creatinine 0.87, Estim Creat Clear Calc 70.98, Est GFR (MDRD) Af Amer 110, Est GFR (MDRD) Non-Af 91, BUN/Creatinine Ratio 13.9, Glucose 106, Calcium 8.0 L Current Medications Albuterol/Ipratropium (Duoneb) 3 ml INHALATION Q6HWA.RT [facility] Last Admin: 12/25/19 07:08 Dose: 3 ml Documented by: Aspirin (Ecotrin) 81 mg PO DAILY@1999 [facility] Last Admin: 12/24/19 21:17 Dose: 81 mg Documented by: Budesonide (Pulmicort Aerosol) 0.5 mg INHALATION DAILY.RT [facility] Last Admin: 12/25/19 07:08 Dose: 0.5 mg Documented by: Ceftriaxone Sodium (Rocephin) 1 gm in 50 mls @ 100 mls/hr IV Q24 [facility] Azithromycin 500 mg/ Dextrose 255 mls @ 250 mls/hr IV Q24 [facility] Sodium Chloride () 250 mls @ 15 mls/hr IV .[id number] PRN PRN Reason: Saline Flush Sodium Chloride () 250 mls @ 15 mls/hr IV .[id number] PRN PRN Reason: Additional IVPB Infusion Isosorbide Mononitrate (Imdur) 30 mg PO DAILY [facility] Losartan Potassium (Cozaar) 50 mg PO DAILY [facility] Metoprolol Succinate (Toprol Xl (Beta Uzma)) 12.5 mg PO DAILY [facility] Niacin (Niaspan) 1,000 mg PO QHS [facility] Last Admin: 12/24/19 21:17 Dose: 1,000 mg Documented by: Nitroglycerin (Nitrostat) 0.4 mg SUBLINGUAL Q5M PRN PRN Reason: chest pain Ondansetron HCl (Zofran) 4 mg IV Q8H PRN PRN PRN Reason: NAUSEA/VOMITING Oxymetazoline HCl (Afrin (Bkc)) 2 spray NASAL Q8H PRN PRN PRN Reason: NASAL CONGESTION Last Admin: 12/24/19 23:08 Dose: 2 spray Documented by: Pravastatin Sodium (Pravachol) 40 mg PO QHS [facility] Last Admin: 12/24/19 21:17 Dose: 40 mg Documented by: Sodium Chloride () 10 - 40 ml IV UD PRN PRN Reason: SALINE FLUSH STROKE Vital Signs/Narrative: Vital Signs Pulse Resp Pulse Ox 12/25/19 07:09 63 18 89 Medical Necessity - Tobacco Use Smoking Status: Current some day smoker Tobacco Use: Vapor Assessment/Plan All Active Problems (Last Reviewed 10/25/19 @ 08:[address] Harsh Manzo, DO) Pneumonia (Acute) Sepsis (Acute) Displacement of other ocular prosthetic devices, implants and grafts, initial encounter (Acute) History of vasectomy (Resolved) Postsurgical percutaneous transluminal coronary angioplasty (PTCA) status (Resolved ~1989) History of cochlear implant (Resolved) Presence of aortocoronary bypass graft (Resolved ~08/01/01) Old myocardial infarction (Acute) Claudication, intermittent (Acute) Patient is a 74-year-old gentleman with underlying history of COPD who presented with fever chills and fatigue and cough. Imaging studies obtained on admission demonstrated Significant bilateral lower lobe pulmonary infiltrates, pneumonia, atypical viral pneumonia cannot be excluded 1. Pneumonia ?Imaging studies obtained on admission demonstrated (Significant bilateral lower lobe pulmonary infiltrates, pneumonia, atypical viral pneumonia cannot be excluded). Patient admitted to the COVID cohort floor. His initial COVID 19 assay came back negative patient was however kept in isolation consultation placed to pulmonary medicine as well as infectious disease 2. COPD 3. Coronary artery disease ?With previous CABG 4. Tobacco dependence 5. DVT prophylaxis - On enoxaparin Inpatient E&M: 46020 Subs Hosp L2
--- NOTE | 2019-12-25 07:31 | PCM.CON.CC ---
Reason for Consult Date of Consultation: 12/25/19 Reason for Consultation: Acute on chronic hypoxemic respiratory failure History of Present Illness: The patient is a 74-year-old male, with a history as outlined below, who presented to the emergency department on December 23 with complaints of chills and subjective fever. The patient has a known history of severe obstructive lung disease and is currently followed by myself in the pulmonary medicine clinic. He has a baseline supplemental oxygen requirement of 4 L/min at rest and 6 L/min with exertion. The patient did report to me that he felt that his respiratory status was at its baseline. His shortness of breath is chronic in nature and unchanged from previous. He also has a chronic cough, unchanged from previous. He has remained compliant with the use of his nebulized medication regimen. He has also been compliant with the use of supplemental oxygen as prescribed. On presentation to the emergency department, the patient was noted to be afebrile and hemodynamically stable. He was maintaining appropriate oxygen saturations on his baseline requirement. Laboratory evaluation revealed an elevated white blood cell count to 20,000. Coagulation profile was within normal limits. Chemistry profile was unrevealing. Troponin was negative. Initial COVID testing was negative. Plain film chest x-ray revealed subtle bilateral lower lobe infiltrates. The patient was placed on scheduled aerosol treatments and antimicrobials. He was subsequently admitted to the intensive care unit for the purposes of maintaining him in COVID precautions. Past Medical History Past Medical History (Chronic Problems): Chronic Problems (Last Reviewed 10/25/19 @ 08:[address] Harsh Manzo, DO) Premature ventricular contraction (Chronic) Hyperlipidemia (Chronic) Ischemic cardiomyopathy (Chronic) Atherosclerotic heart disease of [place] coronary artery without angina pectoris (Chronic) CABG x3- ONOFRE to LAD, Free Lt Radial Artery to the OM branch of CX, reverse SVG from the aorta to the distal RCA 08/01/01; Sternal Rewiring with Debridement 06/20/02 Stage 3 severe COPD by GOLD classification (Chronic) FEV1 37% of predicted Nocturnal hypoxia (Chronic) Tobacco dependence in remission (Chronic) Chronic hypoxemic respiratory failure (Chronic) COPD (chronic obstructive pulmonary disease) (Chronic) Medical History: Medical History (Last Reviewed 10/25/19 @ 08:[address] 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) I25.2 Claudication, intermittent (Acute) I73.9 Premature ventricular contraction (Chronic) I49.3 Hyperlipidemia (Chronic) E78.5 Ischemic cardiomyopathy (Chronic) I25.5 Atherosclerotic heart disease of [place] coronary artery without angina pectoris (Chronic) I25.10 CABG x3- ONOFRE to LAD, Free Lt Radial Artery to the OM branch of CX, reverse SVG from the aorta to the distal RCA 08/01/01; Sternal Rewiring with Debridement 06/20/02 Nocturnal hypoxia (Chronic) G47.34 Tobacco dependence in remission (Chronic) F17.201 Chronic hypoxemic respiratory failure (Chronic) J96.11 COPD (chronic obstructive pulmonary disease) (Chronic) J44.9 Allergies tiotropium [From Spiriva with HandiHaler] Adverse Reaction (Severe, Verified 12/24/19 15:15) Decreased Urination VITAMIN B12 INJECTION Adverse Reaction (Uncoded 12/24/19 15:15) BLURRED VISION AND HOT FLASH Home Medications: Ambulatory Orders Medication Instructions Recorded nitroglycerin 0.4 mg sublingual 0.4 mg SUBLINGUAL Q5-15M PRN #25 11/29/17 tablet tab niacin 1,000 mg tablet,extended 1,000 mg PO QHS #90 tab 06/19/18 release 24 hr arformoterol 15 mcg/2 mL solution 15 mcg INHALATION DAILY ml 01/17/19 for nebulization budesonide 0.5 mg/2 mL suspension 0.5 mg INHALATION DAILY 01/17/19 for nebulization ipratropium 0.5 mg-albuterol 3 mg 3 ml INHALATION .QID #360 ml 01/17/19 (2.5 mg base)/3 mL nebulization soln pravastatin 40 mg tablet 40 mg PO QHS #90 tab 08/30/19 isosorbide mononitrate 30 mg 30 mg PO DAILY #90 tab 09/03/19 tablet,extended release 24 hr metoprolol succinate 25 mg 12.5 mg PO DAILY #45 tab 09/03/19 tablet,extended release 24 hr acetaminophen 500 mg capsule 500 - 1,000 mg PO DAILY PRN PRN 10/25/19 cap albuterol sulfate 90 mcg/actuation 2 puff INHALATION Q4H PRN #1 device 10/25/19 aerosol inhaler Aspirin E.C. [Ecotrin] 81 mg PO DAILY@199912/24/19 Losartan Potassium [Cozaar] 50 mg PO DAILY 12/24/19 Levofloxacin [Levaquin] 750 mg PO DAILY #5 tab 12/25/19 Prednisone 40 mg PO DAILY #10 tab 12/25/19 Surgical History: Surgical History (Last Reviewed 10/25/19 @ 08:[address] Harsh Manzo DO) History of vasectomy (Resolved) Z98.52 Postsurgical percutaneous transluminal coronary angioplasty (PTCA) status (Resolved) Onset Date: ~1989 Z98.61 w/stent 1989 History of cochlear implant (Resolved) Z96.21 Presence of aortocoronary bypass graft (Resolved) Onset Date: ~08/01/01 Z95.1 CABG x3- ONOFRE to LAD, Free Lt Radial Artery to the OM branch of CX, reverse SVG from the aorta to the distal RCA 08/01/01; Sternal Rewiring with Debridement 06/20/02 Aortocoronary bypass status (Inactive) Onset Date: ~08/01/01 Z95.1 CABG x3- ONOFRE to LAD, Free Lt Radial Artery to the OM branch of CX, reverse SVG from the aorta to the distal RCA 08/01/01; Sternal Rewiring with Debridement 06/20/02 Lives: Spouse/ Significant Other Smoking Status: Current some day smoker Tobacco Use: Vapor - *Family History Maternal Family History: Family History (Last Reviewed 10/25/19 @ 08:[address] Harsh Manzo DO) Sister CAD (coronary artery disease) Hx of CABG Sister Breast cancer Brother COPD (chronic obstructive pulmonary disease) History Items: No pertinent history Review of Systems Constitutional: Reports: Chills, Fever Eyes: Denies: Blurred vision, Double vision HEENT: Denies: Head Aches, Sinus Congestion, Sinus Drainage Cardiovascular: Denies: Chest Pain, Palpitations Respiratory: Reports: Cough - Chronic, Shortness of Breath - Chronic at baseline Gastrointestinal: Denies: Abdominal Pain, Nausea, Vomiting Genitourinary: Denies: Dysuria Musculoskeletal: Denies: Joint Pain, Joint Tenderness Skin: Denies: Rash, Wounds Neurological: Denies: Numbness, Tingling, Focal weakness Psychiatric: Denies: Anxiety, Depression, Homicidal Ideations, Suicidal Ideations Hematologic/ Lymphatic: Denies: Easy Bruising, Easy Bleeding Objective: The patient's most recent lab work, culture data and imaging studies have all been personally reviewed. - Physical Exam Vitals/I&O's: Vital Signs Temp Pulse Resp BP Pulse Ox 98.3 F 63 18 106/57 L 89 12/25/19 02:40 12/25/19 07:09 12/25/19 07:09 12/25/19 02:40 12/25/19 07:09 Oxygen Flow Rate (L/min) 5 Oxygen Delivery Method Nasal Cannula Weight: 171 lb 15.369 oz Body Mass Index (BMI) 26.1 Intake and Output for Last 24 Hours 12/23/19 12/24/19 12/25/19 23:59 23:59 23:59 Intake Total 2545 / 2545 120 / 120 Output Total 700 / 700 625 / 625 Balance 1845 / 1845 -505 / -505 General: Alert, Oriented x3, Cooperative, No apparent distress, - - Sitting at the bedside eating breakfast HEENT: Atraumatic, PERRLA, Normocephalic Oral: No Gingival or Mucosal Lesions/ Ulcerations Neck: Supple, No Nodes, Trachea Midline Lungs: No rhonchi, No wheeze, No rales, Diminished, - - No conversational dyspnea. Cardiovascular: Regular rate, Regular Rhythm, Normal S1, Normal S2 Abdomen: Bowel Sounds Present, Soft, Non Tender Extremities: No clubbing, No cyanosis, No edema Skin: No breakdown Musculoskeletal: No Tenderness to Palpation of Joints or Extremities, No Muscle Wasting Lymphatic: No Cervical, Supraclavicular, or Inguinal Adenopathy Neurological: Cranial nerves II-XII grossly intact, Neuro grossly intact Psych/Mental Status: Normal Affect, Appropriate Labs (Last 48 Hours) 12/24/19 12/24/19 12/24/19 15:40 15:46 15:46 WBC 19.4 H RBC 4.31 L Hgb 13.5 Hct 42.5 MCV 98.6 H MCH 31.3 MCHC 31.8 L RDW Std Deviation 45.1 H RDW Coeff of [place] 12.4 Plt Count 272 MPV 9.3 Immature Gran % (Auto) 0.400 Neut % (Auto) 86.3 H Lymph % (Auto) 6.2 L [place] % (Auto) 6.1 Eos % (Auto) 0.7 Baso % (Auto) 0.3 Absolute Neuts (auto) 16.7 H Absolute Lymphs (auto) 1.21 Nucleated RBC % 0 PT 14.0 INR 1.1 APTT 29.4 Sodium Potassium Chloride Carbon Dioxide Anion Gap BUN Creatinine Estim Creat Clear Calc Est GFR (MDRD) Af Amer Est GFR (MDRD) Non-Af BUN/Creatinine Ratio Glucose Lactic Acid Calcium Total Bilirubin AST ALT Alkaline Phosphatase Troponin I Total Protein Albumin Globulin Albumin/Globulin Ratio Urine Color Urine Clarity Urine pH Ur Specific [place] Urine Protein Urine Glucose (UA) Urine Ketones Urine Occult Blood Urine Nitrite Urine Bilirubin Urine Urobilinogen Ur Leukocyte Esterase Urine RBC Urine WBC Ur Squamous Epith Cells Urine Bacteria Urine Mucus COVID-19 (MELY) Negative 12/24/19 12/24/19 12/24/19 15:46 15:46 18:45 WBC RBC Hgb Hct MCV MCH MCHC RDW Std Deviation RDW Coeff of [place] Plt Count MPV Immature Gran % (Auto) Neut % (Auto) Lymph % (Auto) [place] % (Auto) Eos % (Auto) Baso % (Auto) Absolute Neuts (auto) Absolute Lymphs (auto) Nucleated RBC % PT INR APTT Sodium 138 Potassium 4.2 Chloride 105 Carbon Dioxide 28.0 Anion Gap 5 BUN 15 Creatinine 1.09 Estim Creat Clear Calc 56.65 Est GFR (MDRD) Af Amer 85 Est GFR (MDRD) Non-Af 70 BUN/Creatinine Ratio 13.8 Glucose 110 H Lactic Acid 2.0 Calcium 8.3 L Total Bilirubin 0.60 AST 14 L ALT 16 Alkaline Phosphatase 79 Troponin I < 0.015 Total Protein 6.9 Albumin 3.4 Globulin 3.5 Albumin/Globulin Ratio 1.0 Urine Color Yellow Urine Clarity Sl. Cloudy Urine pH 7.0 Ur Specific [place] 1.005 Urine Protein Negative Urine Glucose (UA) Normal Urine Ketones Negative Urine Occult Blood Negative Urine Nitrite Negative Urine Bilirubin Negative Urine Urobilinogen Normal Ur Leukocyte Esterase Negative Urine RBC 0 SEEN Urine WBC 0 SEEN Ur Squamous Epith Cells 0-5 SEEN Urine Bacteria 0 SEEN Urine Mucus 0 SEEN COVID-19 (MELY) 12/25/19 12/25/19 05:20 05:20 WBC 11.2 H RBC 4.16 L Hgb 12.9 L Hct 40.8 MCV 98.1 H MCH 31.0 MCHC 31.6 L RDW Std Deviation 45.9 H RDW Coeff of [place] 12.8 Plt Count 243 MPV 9.1 Immature Gran % (Auto) 0.200 Neut % (Auto) 74.9 H Lymph % (Auto) 15.9 L [place] % (Auto) 6.5 Eos % (Auto) 2.1 Baso % (Auto) 0.4 Absolute Neuts (auto) 8.4 H Absolute Lymphs (auto) 1.77 Nucleated RBC % 0 PT INR APTT Sodium 140 Potassium 4.2 Chloride 108 H Carbon Dioxide 27.0 Anion Gap 5 BUN 12 Creatinine 0.87 Estim Creat Clear Calc 70.98 Est GFR (MDRD) Af Amer 110 Est GFR (MDRD) Non-Af 91 BUN/Creatinine Ratio 13.9 Glucose 106 Lactic Acid Calcium 8.0 L Total Bilirubin AST ALT Alkaline Phosphatase Troponin I Total Protein Albumin Globulin Albumin/Globulin Ratio Urine Color Urine Clarity Urine pH Ur Specific [place] Urine Protein Urine Glucose (UA) Urine Ketones Urine Occult Blood Urine Nitrite Urine Bilirubin Urine Urobilinogen Ur Leukocyte Esterase Urine RBC Urine WBC Ur Squamous Epith Cells Urine Bacteria Urine Mucus COVID-19 (MELY) Clinical Impression(s) from Imaging Studies Chest X-Ray 12/24/19 15:37 IMPRESSION: Significant bilateral lower lobe pulmonary infiltrates, pneumonia, atypical viral pneumonia cannot be excluded Sternal wires Old right rib fractures Electronically Signed: Deuce Rivera, at 16:50 EDT Tel , Service support , Current Medications Albuterol/Ipratropium (Duoneb) 3 ml INHALATION Q6HWA.RT [facility] Last Admin: 12/25/19 07:08 Dose: 3 ml Documented by: Aspirin (Ecotrin) 81 mg PO DAILY@1999 [facility] Last Admin: 12/24/19 21:17 Dose: 81 mg Documented by: Budesonide (Pulmicort Aerosol) 0.5 mg INHALATION DAILY.RT [facility] Last Admin: 12/25/19 07:08 Dose: 0.5 mg Documented by: Ceftriaxone Sodium (Rocephin) 1 gm in 50 mls @ 100 mls/hr IV Q24 [facility] Azithromycin 500 mg/ Dextrose 255 mls @ 250 mls/hr IV Q24 [facility] Sodium Chloride () 250 mls @ 15 mls/hr IV .[id number] PRN PRN Reason: Saline Flush Sodium Chloride () 250 mls @ 15 mls/hr IV .[id number] PRN PRN Reason: Additional IVPB Infusion Isosorbide Mononitrate (Imdur) 30 mg PO DAILY [facility] Losartan Potassium (Cozaar) 50 mg PO DAILY [facility] Metoprolol Succinate (Toprol Xl (Beta Uzma)) 12.5 mg PO DAILY [facility] Niacin (Niaspan) 1,000 mg PO QHS [facility] Last Admin: 12/24/19 21:17 Dose: 1,000 mg Documented by: Nitroglycerin (Nitrostat) 0.4 mg SUBLINGUAL Q5M PRN PRN Reason: chest pain Ondansetron HCl (Zofran) 4 mg IV Q8H PRN PRN PRN Reason: NAUSEA/VOMITING Oxymetazoline HCl (Afrin (Bkc)) 2 spray NASAL Q8H PRN PRN PRN Reason: NASAL CONGESTION Last Admin: 12/24/19 23:08 Dose: 2 spray Documented by: Pravastatin Sodium (Pravachol) 40 mg PO QHS [facility] Last Admin: 12/24/19 21:17 Dose: 40 mg Documented by: Sodium Chloride () 10 - 40 ml IV UD PRN PRN Reason: SALINE FLUSH Assessment/Plan RECOMMENDATIONS: 1. Transition to p.o. Levaquin with plans to complete a 7-day treatment course. 2. Start prednisone 40 mg daily x5 days at discharge. 3. The patient has been scheduled to follow-up in the pulmonary medicine clinic this December 27 at 2:15 PM. IMPRESSIONS: 1. Subjective fever and chills The patient presented to the hospital with vague, nonspecific complaints. He did have an elevated white blood cell count and subtle lower lobe infiltrates. The patient was placed on antimicrobials with CAP coverage and was maintained on his baseline nebulized medications. The patient does have known severe COPD and chronic hypoxemic respiratory failure. However, he appears to be at his baseline from a respiratory perspective. His oxygen requirement is not escalated out of what is normal for him. His coronavirus testing was negative. Therefore, I feel that it is reasonable that the patient be placed on 7 days of Levaquin for treatment of possible community-acquired pneumonia, along with a 5-day prednisone burst of 40 mg daily. I have asked that the patient follow-up this upcoming Tuesday with our nurse practitioner to ensure clinical stability. Of note, the patient has remained afebrile throughout his entire hospital course. 2. Advanced stage chronic obstructive pulmonary disease/chronic hypoxemic respiratory failure/nocturnal hypoxemia Management as noted above. Recommend that the patient resume his triple therapy nebulized medication regimen upon discharge. Continue 4 L/min of continuous flow supplemental oxygen at rest and 6 L with exertion. Continue supplemental oxygen at night as well. This note was generated with [employer] dictation software. It may contain incorrect words, spelling, and punctuation that were not noted in checking the note before signing. Inpatient E&M: 74418 Init Hosp L3
[2019-12-25 08:30] VITALS: BP 128/57; PULSE 77; RESP 20; TEMP 36.6; O2SAT 89; O2SAT 90
[2019-12-25 08:53] VITALS: BP 128/57; PULSE 77
[2019-12-25] MEDS: Metoprolol(XL)Succ 25 MG Tablet 12.5 MG PO (08:53)
[2019-12-25] MEDS: Losartan Potassium 50 MG Tablet PO (08:54)
[2019-12-25] MEDS: Ceftriaxone 1 GM/50 ML BAG IV (09:00)
--- NOTE | 2019-12-25 09:18 | DS.PCM_ITS ---
Discharge Date and Diagnosis Date of Admission: 12/24/19 Date of Discharge: 12/25/19 - Primary Discharge Diagnosis Acute Problems: Active Problems (Last Reviewed 10/25/19 @ 08:[address] Harsh aMnzo, ) Pneumonia (Acute) Sepsis (Acute) Suspected Problems: Suspected Problems (Last Reviewed 10/25/19 @ 08:[address] Harsh Manzo, ) Sepsis (Suspected) - Secondary Discharge Diagnosis Chronic Problems: Chronic Problems (Last Reviewed 10/25/19 @ 08:[address] 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 classification (Chronic) FEV1 37% of predicted Nocturnal hypoxia (Chronic) Tobacco dependence in remission (Chronic) Chronic hypoxemic respiratory failure (Chronic) COPD (chronic obstructive pulmonary disease) (Chronic) Hospital Course and Treatment Imaging Results: Clinical Impression(s) from Imaging Studies Chest X-Ray 12/24/19 15:37 IMPRESSION: Significant bilateral lower lobe pulmonary infiltrates, pneumonia, atypical viral pneumonia cannot be excluded Sternal wires Old right rib fractures Electronically Signed: Deuce Rivera, at 16:50 EDT Tel , Service support , Summary of Care Provided: Patient is a 74-year-old gentleman with underlying history of COPD who presented with fever chills and fatigue and cough. Imaging studies obtained on admission demonstrated Significant bilateral lower lobe pulmonary infiltrates, pneumonia, atypical viral pneumonia cannot be excluded 1. Pneumonia ?Imaging studies obtained on admission demonstrated (Significant bilateral lower lobe pulmonary infiltrates, pneumonia, atypical viral pneumonia cannot be excluded). Patient admitted to the COVID cohort floor. His initial COVID 19 assay came back negative patient was however kept in isolation consultation placed to pulmonary medicine as well as infectious disease. Case was discussed with Dr. Manzo with pulmonary medicine he was of the opinion patient was back to his baseline patient was therefore discharged home on steroids as well as Levaquin and instructed to follow-up with pulmonary medicine when needed 2. COPD - did continue with aerosol treatment 3. Coronary artery disease ?With previous CABG 4. Tobacco dependence - Counseled on cessation, offered nicotine patch for tobacco cravings 5. DVT prophylaxis - On enoxaparin - Physical Exam Vitals/I&O's: Vital Signs Temp Pulse Resp BP Pulse Ox 97.8 F 77 20 H 128/57 H 89 12/25/19 08:30 12/25/19 08:53 12/25/19 08:30 12/25/19 08:53 12/25/19 08:30 Oxygen Flow Rate (L/min) 5 Oxygen Delivery Method Nasal Cannula Weight: 78 kg Body Mass Index (BMI) 26.1 Intake and Output for Last 24 Hours 12/23/19 12/24/19 12/25/19 23:59 23:59 23:59 Intake Total 2545 / 2545 120 / 120 Output Total 700 / 700 625 / 625 Balance 1845 / 1845 -505 / -505 General: Alert HEENT: Atraumatic Neck: Supple Lungs: Diminished Cardiovascular: Regular rate, Regular Rhythm Neurological: Neuro grossly intact Psych/Mental Status: Normal Affect Laboratory Results 12/24/19 15:40: COVID-19 (MELY) Negative 12/24/19 15:46: WBC 19.4 H, RBC 4.31 L, Hgb 13.5, Hct 42.5, MCV 98.6 H, MCH 31.3, MCHC 31.8 L, RDW Std Deviation 45.1 H, RDW Coeff of [place] 12.4, Plt Count 272, MPV 9.3, Immature Gran % (Auto) 0.400, Neut % (Auto) 86.3 H, Lymph % (Auto) 6.2 L, [place] % (Auto) 6.1, Eos % (Auto) 0.7, Baso % (Auto) 0.3, Absolute Neuts (auto) 16.7 H, Absolute Lymphs (auto) 1.21, Nucleated RBC % 0 12/24/19 15:46: PT 14.0, INR 1.1, APTT 29.4 12/24/19 15:46: Sodium 138, Potassium 4.2, Chloride 105, Carbon Dioxide 28.0, Anion Gap 5, BUN 15, Creatinine 1.09, Estim Creat Clear Calc 56.65, Est GFR (MDRD) Af Amer 85, Est GFR (MDRD) Non-Af 70, BUN/Creatinine Ratio 13.8, Glucose 110 H, Calcium 8.3 L, Total Bilirubin 0.60, AST 14 L, ALT 16, Alkaline Phosphatase 79, Troponin I < 0.015, Total Protein 6.9, Albumin 3.4, Globulin 3.5, Albumin/Globulin Ratio 1.0 12/24/19 15:46: Lactic Acid 2.0 12/24/19 18:45: Urine Color Yellow, Urine Clarity Sl. Cloudy, Urine pH 7.0, Ur Specific [place] 1.005, Urine Protein Negative, Urine Glucose (UA) Normal, Urine Ketones Negative, Urine Occult Blood Negative, Urine Nitrite Negative, Urine Bilirubin Negative, Urine Urobilinogen Normal, Ur Leukocyte Esterase Negative, Urine RBC 0 SEEN, Urine WBC 0 SEEN, Ur Squamous Epith Cells 0-5 SEEN, Urine Bacteria 0 SEEN, Urine Mucus 0 SEEN 12/25/19 05:20: WBC 11.2 H, RBC 4.16 L, Hgb 12.9 L, Hct 40.8, MCV 98.1 H, MCH 31.0, MCHC 31.6 L, RDW Std Deviation 45.9 H, RDW Coeff of [place] 12.8, Plt Count 243, MPV 9.1, Immature Gran % (Auto) 0.200, Neut % (Auto) 74.9 H, Lymph % (Auto) 15.9 L, [place] % (Auto) 6.5, Eos % (Auto) 2.1, Baso % (Auto) 0.4, Absolute Neuts (auto) 8.4 H, Absolute Lymphs (auto) 1.77, Nucleated RBC % 0 12/25/19 05:20: Sodium 140, Potassium 4.2, Chloride 108 H, Carbon Dioxide 27.0, Anion Gap 5, BUN 12, Creatinine 0.87, Estim Creat Clear Calc 70.98, Est GFR (MDRD) Af Amer 110, Est GFR (MDRD) Non-Af 91, BUN/Creatinine Ratio 13.9, Glucose 106, Calcium 8.0 L Current Medications Albuterol/Ipratropium (Duoneb) 3 ml INHALATION Q6HWA.RT [facility] Last Admin: 12/25/19 07:08 Dose: 3 ml Documented by: Aspirin (Ecotrin) 81 mg PO DAILY@1999 [facility] Last Admin: 12/24/19 21:17 Dose: 81 mg Documented by: Budesonide (Pulmicort Aerosol) 0.5 mg INHALATION DAILY.RT [facility] Last Admin: 12/25/19 07:08 Dose: 0.5 mg Documented by: Ceftriaxone Sodium (Rocephin) 1 gm in 50 mls @ 100 mls/hr IV Q24 [facility] Last Admin: 12/25/19 09:00 Dose: 100 mls/hr Documented by: Azithromycin 500 mg/ Dextrose 255 mls @ 250 mls/hr IV Q24 [facility] Sodium Chloride () 250 mls @ 15 mls/hr IV .[id number] PRN PRN Reason: Saline Flush Sodium Chloride () 250 mls @ 15 mls/hr IV .[id number] PRN PRN Reason: Additional IVPB Infusion Isosorbide Mononitrate (Imdur) 30 mg PO DAILY [facility] Last Admin: 12/25/19 08:51 Dose: Not Given Documented by: Losartan Potassium (Cozaar) 50 mg PO DAILY [facility] Last Admin: 12/25/19 08:54 Dose: 50 mg Documented by: Metoprolol Succinate (Toprol Xl (Beta Uzma)) 12.5 mg PO DAILY [facility] Last Admin: 12/25/19 08:53 Dose: 12.5 mg Documented by: Niacin (Niaspan) 1,000 mg PO QHS [facility] Last Admin: 12/24/19 21:17 Dose: 1,000 mg Documented by: Nitroglycerin (Nitrostat) 0.4 mg SUBLINGUAL Q5M PRN PRN Reason: chest pain Ondansetron HCl (Zofran) 4 mg IV Q8H PRN PRN PRN Reason: NAUSEA/VOMITING Oxymetazoline HCl (Afrin (Bkc)) 2 spray NASAL Q8H PRN PRN PRN Reason: NASAL CONGESTION Last Admin: 12/24/19 23:08 Dose: 2 spray Documented by: Pravastatin Sodium (Pravachol) 40 mg PO QHS [facility] Last Admin: 12/24/19 21:17 Dose: 40 mg Documented by: Sodium Chloride () 10 - 40 ml IV UD PRN PRN Reason: SALINE FLUSH Discharge Diet: No Restrictions Discharge Activity: Return to Normal Activity Home Medications: Medications to take at Discharge nitroglycerin 0.4 mg sublingual tablet 0.4 mg SUBLINGUAL Q5-15M PRN #25 tab 11/29/17 niacin 1,000 mg tablet,extended release 24 hr 1,000 mg PO QHS #90 tab 06/19/18 arformoterol 15 mcg/2 mL solution for nebulization 15 mcg INHALATION DAILY ml 01/17/19 budesonide 0.5 mg/2 mL suspension for nebulization 0.5 mg INHALATION DAILY 01/17/19 ipratropium 0.5 mg-albuterol 3 mg (2.5 mg base)/3 mL nebulization soln 3 ml INHALATION .QID #360 ml 01/17/19 pravastatin 40 mg tablet 40 mg PO QHS #90 tab 08/30/19 isosorbide mononitrate 30 mg tablet,extended release 24 hr 30 mg PO DAILY #90 tab 09/03/19 metoprolol succinate 25 mg tablet,extended release 24 hr 12.5 mg PO DAILY #45 tab 09/03/19 acetaminophen 500 mg capsule 500 - 1,000 mg PO DAILY PRN PRN cap 10/25/19 albuterol sulfate 90 mcg/actuation aerosol inhaler 2 puff INHALATION Q4H PRN #1 device 10/25/19 Aspirin E.C. [Ecotrin] 81 mg PO DAILY@199912/24/19 Losartan Potassium [Cozaar] 50 mg PO DAILY 12/24/19 Levofloxacin [Levaquin] 750 mg PO DAILY #5 tab 12/25/19 Prednisone 40 mg PO DAILY #10 tab 12/25/19 Following Prescrptions Were Given to Patient: Levofloxacin [Levaquin] 750 mg PO DAILY #5 tab Transmission Status: Received by [facility]/pharmacy #[id number] Prednisone 40 mg PO DAILY #10 tab Transmission Status: Received by [facility]/pharmacy #[id number] Primary Care Physician: Deuce Baig DO [Primary Care Provider] - Disposition: Home Minutes spent on discharge:: 35 Patient Condition:: Stable Medical Necessity - Tobacco Use Smoking Status: Current some day smoker Tobacco Use: Vapor Meaningful Use Info Meaningful Use Diagnoses (Choose all that apply): None applicable Inpatient E&M: 19214 Disch Hosp
--- NOTE | 2019-12-25 09:18 | PCM.DC ---
- Discharge Diagnoses Current Active Problems: Current Active and Chronic Problems (Last Reviewed 10/25/19 @ 08:[address] Harsh Manzo, DO) Pneumonia (Acute) Sepsis (Acute) You will use the following diet at home:: No restrictions Your food should be the consistency of: Regular Allergies/Adverse Reactions: Allergies tiotropium [From Spiriva with HandiHaler] Adverse Reaction (Severe, Verified 12/24/19 15:15) Decreased Urination VITAMIN B12 INJECTION Adverse Reaction (Uncoded 12/24/19 15:15) BLURRED VISION AND HOT FLASH Medications to take at Discharge nitroglycerin 0.4 mg sublingual tablet 0.4 mg SUBLINGUAL Q5-15M PRN #25 tab 11/29/17 niacin 1,000 mg tablet,extended release 24 hr 1,000 mg PO QHS #90 tab 06/19/18 arformoterol 15 mcg/2 mL solution for nebulization 15 mcg INHALATION DAILY ml 01/17/19 budesonide 0.5 mg/2 mL suspension for nebulization 0.5 mg INHALATION DAILY 01/17/19 ipratropium 0.5 mg-albuterol 3 mg (2.5 mg base)/3 mL nebulization soln 3 ml INHALATION .QID #360 ml 01/17/19 pravastatin 40 mg tablet 40 mg PO QHS #90 tab 08/30/19 isosorbide mononitrate 30 mg tablet,extended release 24 hr 30 mg PO DAILY #90 tab 09/03/19 metoprolol succinate 25 mg tablet,extended release 24 hr 12.5 mg PO DAILY #45 tab 09/03/19 acetaminophen 500 mg capsule 500 - 1,000 mg PO DAILY PRN PRN cap 10/25/19 albuterol sulfate 90 mcg/actuation aerosol inhaler 2 puff INHALATION Q4H PRN #1 device 10/25/19 Aspirin E.C. [Ecotrin] 81 mg PO DAILY@199912/24/19 Losartan Potassium [Cozaar] 50 mg PO DAILY 12/24/19 Levofloxacin [Levaquin] 750 mg PO DAILY #5 tab 12/25/19 Prednisone 40 mg PO DAILY #10 tab 12/25/19 The following prescriptions were given: Levofloxacin [Levaquin] 750 mg PO DAILY #5 tab Transmission Status: Received by [facility]/pharmacy #[id number] Prednisone 40 mg PO DAILY #10 tab Transmission Status: Received by [facility]/pharmacy #[id number] Primary Care Physician: Deuce Baig DO [Primary Care Provider] - Please follow up with your Primary Care Physician in: in 5-7 days Test Results: Test results from this visit will be discussed in further detail at your follow-up appointment, if applicable. Please Follow Up With: Harsh Manzo DO Proposed Discharge Date: 12/25/19
--- NOTE | 2019-12-25 10:55 | CASEMGMT ---
LIZABETH JACOBSON assessment: Phone interview with patient d/t COVID isolation of pt for initial transition planning/care coordination assessment. LIZABETH JACOBSON introduced self and role at [facility], pt voices understanding and consents to assessment at this time. Pt is hard of hearing but is able to converse on his personal cell phone at this time. Pt is A/Ox4 at this time and answers all questions appropriately at this time. Care providers, pharmacy, and demographics verified/updated at this time. Presentation: Hx COPD, increased SOB, fever/chills, weakness Admitting dx: Febrile illness, pna PCP: Deuce Baig Specialists: Jovany, pulsandro; Desmond, cardio Preferred Pharmacy: [facility] Insurance: [facility] A/B, AARP Prescription Benefit: Yes Living Will/HPOA: Pt has LW/HPOA on file at [facility] but a couple of the HPOA pages are missing at this time. Pt states that his daughter, Jahaira Fink, is HPOA and this is marked on demographics at this time. LNOK: Jahaira Fink, daughter/HPOA; Summer Falk, sig other; Shad Garber Jr, son Living Arrangements: Pt states lives with sig other on main level of 2 story home with 1 step in and states no concerns at home at this time. Pt states is independent with ADL's. Transportation: Pt states drives self and states no transportation concerns at this time. DME/HHC: Pt states is on home oxygen thru [employer] 4liters at rest and 6 liters with ambulation and also has a nebulizer thru [employer]. Pt states no need for any further DME at this time. Pt states no hx HHC or SNF in the past. Pt states no concerns with going home at time of discharge. Pt states is retired. Pt states does not smoke but does drink ETOH occasionally. Pt states no further concerns/needs at this time. CM to follow for any further discharge planning/needs. Advised pt to ask for CM if any further questions/concerns/needs arise, voices understanding. Pt Goal: Home Plan[place] LIZABETH JACOBSON
[2019-12-25 11:50] VITALS: BP 115/53; PULSE 71; RESP 24; TEMP 36.7; O2SAT 92
[2019-12-25 14:12] LABS: LDH 126 U/L (87-241)
[2019-12-25 14:14] LABS: BNP,B-Type NATRIURETIC PEPTIDE 145.8 pg/mL (0-100)
== END 2019-12-25 11:50 | disposition home or self-care (01) | DRG 190 ==
LOC: ED 17:58 → ICU 20:13
PROVIDERS: Family Medicine; Internal Medicine Critical Care Medicine; Admitting Provider Internal Medicine; Emergency Provider Emergency Medicine; PCP Family Medicine; Visit Provider Internal Medicine
DX: J44.0 Chronic obstructive pulmonary disease with (acute) lower respiratory infection (principal); J18.9 Pneumonia, unspecified organism; J96.10 Chronic respiratory failure, unspecified whether with hypoxia or hypercapnia; I25.10 Atherosclerotic heart disease of native coronary artery without angina pectoris; I25.2 Old myocardial infarction; I25.5 Ischemic cardiomyopathy; E78.5 Hyperlipidemia, unspecified; Z95.1 Presence of aortocoronary bypass graft; I73.9 Peripheral vascular disease, unspecified; Z99.81 Dependence on supplemental oxygen; Z79.899 Other long term (current) drug therapy; Z79.82 Long term (current) use of aspirin; F17.290 Nicotine dependence, other tobacco product, uncomplicated
CPT/HCPCS: 71045; 80048; 80053; 81001; 83605; 83615; 83880; 84484; 85025; 85610; 85730; 86140; 87040; 87086; 87088; 87633; 87635; 93005; 94640; 99285; G2023; J7030; J7050; A4216; U0003

== ENCOUNTER → 2021-12-14 | Outpatient (CLI) | payer MEDICARE, OTHER, SELFPAY ==
[2021-12-14 17:07] LABS: Anion Gap 3 (5-15); BUN 13 mg/dL (7-18); BUN/Creat Ratio 13.9 RATIO (10-20); Calcium,Total 8.7 mg/dL (8.5-10.1); Chloride 109 mmol/L (98-107); Creatinine, Serum 0.93 mg/dL (0.70-1.30); EST Glomerular Filtration Rate 83 mL/min (>60); Est Glom Filt Rate - Afr Amer 101 mL/min (>60); Glucose 98 mg/dL (74-106); Potassium 4.7 mmol/L (3.5-5.1); Sodium Level 141 mmol/L (136-145)
== END | disposition home or self-care (01) ==
LOC: LAB 15:55
PROVIDERS: PCP Family Medicine; Referring Provider Physician Assistant Medical; Visit Provider Physician Assistant Medical
DX: R06.00 Dyspnea, unspecified (principal)
CPT/HCPCS: 36415; 80048; 83880

== ENCOUNTER → 2023-10-24 | Outpatient (CLI) | payer MEDICARE, OTHER, SELFPAY ==
[2023-10-24 10:47] LABS: AST(SGOT) 16 U/L (15-37); Alanine Aminotransfer ALT/SGPT 15 U/L (16-61); Albumin, Serum 3.3 g/dL (3.2-5.0); Alkaline Phosphatase 89 U/L (45-117); Bilirubin, Direct 0.15 mg/dL (0.00-0.30); Cholesterol 120 mg/dL (200); Globulin 4.1 g/dL (2.2-4.2); High Density Lipoprotein 52 mg/dL; Protein, Total 7.4 g/dL (6.4-8.2); Triglycerides 48 mg/dL; Very Low Density Lipoprotein 10 mg/dL (5-40)
== END | disposition home or self-care (01) ==
LOC: LAB 09:30
PROVIDERS: PCP Family Medicine; Referring Provider Internal Medicine Cardiovascular Disease; Visit Provider Internal Medicine Cardiovascular Disease
DX: E78.5 Hyperlipidemia, unspecified (principal)
CPT/HCPCS: 36415; 80061; 80076

== ENCOUNTER 2024-11-15 10:00 | Inpatient (IN) | payer MEDICARE, OTHER, SELFPAY ==
[2024-11-15] VITALS (13 sets, daily range): BP systolic 118–155; BP diastolic 61–93; PULSE 65–88; RESP 16–70; TEMP 36.4–37.1; O2SAT 88–98; BMI 26.6
--- NOTE | 2024-11-15 10:27 | RAD_ITS ---
PROCEDURE: CHEST PA AND LATERAL 11/15/2024 REASON FOR EXAM: COUGH , SOB TECHNIQUE: Frontal and lateral views of the chest. COMPARISON: 12/24/2019 FINDINGS: Lungs: Lungs clear of pneumonia and congestion. Parenchymal scarring and/or subsegmental atelectasis in the left lung base. Pleura: No pleural effusions, thickening, or pneumothorax. Heart: Normal in size and configuration. Mediastinum/Roseline: Unremarkable. Great vessels: Unremarkable. Bones/soft tissues: Unremarkable. Median sternotomy wires. Cardiac monitoring leads overlie the chest wall. RAD/Chest PA and Lateral IMPRESSION: No active cardiopulmonary disease. Parenchymal scarring and/or subsegmental atelectasis, left lower lobe. Reading Location: [facility]
--- NOTE | 2024-11-15 10:28 | ED.VIS.DYS ---
HPI History of Present Illness Chief Complaint: Shortness of Breath Informant: patient and spouse/S.O. Narrative Narrative: Sent to ED after discussion with pulmonary office. History of COPD chronic oxygenation 4 L at rest 6 L with exertion. Remote tobacco history. 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 He states had cough shortness of breath 2 months ago seen in pulmonary office was started on prednisone daily at 10 mg. He states he is on antibiotics 3 days a week Tuesday with a Fridays. Each week symptoms have worsened. Wheezing at home. No diabetes. No fever or chills. Feels chest heaviness. Three-vessel CABG 2001 baby aspirin daily. Denies vomiting diarrhea denies urinary symptoms. He had no recent travel or surgeries prior symptoms starting. No history of PE or DVT. 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, implants and grafts, initial encounter Nocturnal hypoxia Tobacco dependence in remission Chronic hypoxemic respiratory failure COPD (chronic obstructive pulmonary disease) Home Medications ?Medication ?Instructions ?Recorded ?Last Taken ?Type aspirin 81 mg tablet,delayed 81 mg PO DAILY@1999 [facility] 12/24/19 11/14/24 History release nitroglycerin 0.4 mg sublingual 0.4 mg sublingual Q5-15M PRN chest 03/22/22 Unknown Rx tablet pain #25 tabs Handicap Placcard #1 ea 07/29/22 Unknown Rx albuterol sulfate 2.5 mg/3 mL 2.5 mg (3 mL) inhalation Q4H #180 08/14/24 11/14/24 Rx (0.083 %) solution for nebulization mL albuterol sulfate 90 mcg/actuation 2 puff inhalation Q4H PRN 08/14/24 Unknown Rx aerosol inhaler shortness of breath or wheezing #8.5 grams arformoterol 15 mcg/2 mL solution 15 mcg (2 mL) inhalation BID #120 08/14/24 11/14/24 Rx for nebulization (Brovana) mL budesonide 0.5 mg/2 mL suspension 0.5 mg (2 mL) inhalation BID #120 08/14/24 11/14/24 Rx for nebulization mL guaifenesin 1,200 mg tablet, 1,200 mg PO Q12H #60 tabs 08/14/24 11/14/24 Rx extended release 12 hr metoprolol succinate 25 mg 12.5 mg (1/2 x 25 mg) PO DAILY #45 08/20/24 11/14/24 Rx tablet,extended release 24 hr TABLETS rosuvastatin 20 mg tablet 20 mg PO DAILY #90 tabs 08/20/24 11/14/24 Rx ipratropium 0.5 mg-albuterol 3 mg 3 ml inhalation DAILY 09/11/24 11/14/24 History (2.5 mg base)/3 mL nebulization soln isosorbide mononitrate 30 mg 30 mg PO DAILY #90 tabs 09/11/24 11/14/24 Rx tablet,extended release 24 hr losartan 25 mg tablet 25 mg PO BID #180 tabs 09/11/24 11/14/24 Rx prednisone 10 mg tablet 10 mg PO DAILY 11/15/24 11/14/24 History Allergy/AdvReac Type Severity Reaction Status Date / Time tiotropium (From Spiriva AdvReac Severe Decreased Verified 11/15/24 10:01 with HandiHaler) Urination cyanocobalamin (vitamin B12) AdvReac Other Verified 11/15/24 10:01 Family History Sister CAD (coronary artery disease) Hx of CABG Sister Breast cancer Brother COPD (chronic obstructive pulmonary disease) Surgical History Presence of aortocoronary bypass graft (~08/01/01) History of cochlear implant Postsurgical percutaneous transluminal coronary angioplasty (PTCA) status (~1989) Aortocoronary bypass status (~08/01/01) History of vasectomy Social History Smoking Status: Former smoker how long ago did patient quit smokin + years ago second hand exposure: No alcohol intake: current alcohol intake frequency: a few times a week substance use type: does not use caffeine: Yes ROS ROS ED Constitutional Constitutional ED: Denies chills, fever(s) or sweats ENT ENT ED: Denies sore throat Cardiovascular Cardiovascular: Reports chest pain; Denies leg edema, palpitations or racing heartbeat Respiratory/Chest Respiratory/Chest: Reports cough, dyspnea and dyspnea on exertion Gastrointestinal Gastrointestinal: Denies abdominal pain, diarrhea, nausea or vomiting Genitourinary Genitourinary ED: Denies dysuria, hematuria or urinary frequency Musculoskeletal Musculoskeletal: Denies back pain, extremity pain or neck pain Integumentary Denies rash or wounds Neurologic Neurologic: Denies headache(s), paresthesias or weakness EXAM Physical Exam Const Vital Signs: 11/15/24 10:11/15/24 10:00 11/15/24 10:04 Temperature 98 F 98.1 F Temperature Source Temporal Oral Pulse Rate 86 80 Respiratory Rate 32 H 34 H Respiratory Effort Respiratory Depth Respiratory Pattern Blood Pressure 148/77 H 155/82 H Blood Pressure Mean 100 106 Pulse Ox 91 93 88 Oxygen Delivery Method Nasal Cannula Nasal Cannula Nasal Cannula Oxygen Flow Rate (L/min) 5 5 5 11/15/24 10:04 11/15/24 10:27 11/15/24 11:04 Temperature 98.7 F Temperature Source Oral Pulse Rate 74 Respiratory Rate 16 Respiratory Effort Short of Breath Respiratory Depth Shallow Respiratory Pattern Tachypnea Blood Pressure 134/76 H Blood Pressure Mean 95 Pulse Ox 97 Oxygen Delivery Method Nasal Cannula Nasal Cannula Room Air Oxygen Flow Rate (L/min) 5 5 11/15/24 12:00 11/15/24 12:00 11/15/24 13:00 Temperature 98.7 F 98.7 F Temperature Source Oral Oral Pulse Rate 70 75 Respiratory Rate 70 H 20 H 23 H Respiratory Effort Respiratory Depth Respiratory Pattern Blood Pressure 123/69 H 123/69 H 130/71 H Blood Pressure Mean 87 87 90 Pulse Ox 94 93 Oxygen Delivery Method Nasal Cannula Nasal Cannula Oxygen Flow Rate (L/min) 5 5 11/15/24 13:00 11/15/24 13:05 Temperature 98.7 F Temperature Source Pulse Rate 83 Respiratory Rate 21 H Respiratory Effort Respiratory Depth Respiratory Pattern Blood Pressure 130/71 H 130/71 H Blood Pressure Mean 90 90 Pulse Ox 93 Oxygen Delivery Method Oxygen Flow Rate (L/min) Positive well nourished and well developed Constitutional Narrative: 5 L nasal cannula, no respiratory distress General Appearance ED: well developed and NAD HEENT Reports moist mucous membranes normocephalic and atraumatic Eyes General Eye ED: Yes normal appearance of both eyes Neck full ROM Chest Wall Chest: Negative for tenderness Resp normal respiratory effort and normal air movement Effort and Inspection: symmetric chest movement; Negative for respiratory distress Cardio regular rate, regular rhythm and no murmurs Peripheral Pulses: pulses 2+ throughout GI normal to inspection, nondistended, normoactive bowel sounds and non-tender Palpation: Negative for guarding or rebound tenderness present Extremity normal to inspection General Extremety ED: Negative for edema or tenderness General Extremity: Negative for edema Neuro oriented x3 and no sensory deficits noted Sensorium / Orientation: awake and alert Skin no rashes or lesions noted and no wounds MDM MDM MDM Narrative Medical decision making narrative: Interventions / MDM: Differential diagnosis: COPD exacerbation, failed outpatient treatment. Diagnosis considered but do not suspect: Pneumonia, pulmonary embolism however CT negative. My EKG interpretation: Sinus rate of 77, no ST changes. PVC noted. Incomplete left bundle branch block. Similar findings from December 2019. Imaging independently reviewed and interpreted by myself: 2 view chest x-ray: Left lower lobe atelectasis. No infiltrates. CT angiogram chest: Emphysema changes. No PE. Also read by radiology. External documents reviewed: N/A Test considered but not ordered:N/A ED course: Patient currently 5 L nasal cannula no respiratory distress waxing waning hypoxia down to 88% however go up into the 90s. 2 months of symptoms progressed. No PE risk factors. No active wheezing. EKG chronic changes. Will check labs x-ray Solu-Medrol ordered. D-dimer for further evaluation. Will likely require hospitalization as he is failing outpatient treatment. Leukocytosis of 20, has been on chronic steroids for couple months of 10 mg. Chest x-ray negative. D-dimer elevated subsequent CT chest negative for PE or infiltrates. Inflammatory process noted. Creatinine 0.7. Troponin 25 down to 21. Patient on 5 L oxygen. Baseline 4 to 6 L. Failed outpatient therapy. Discussed with hospitalist Dr. Henao for admission. Re-evaluation: stable Disposition discussed with patient/family/significant other: Patient and spouse Case discussed with consulting clinician: Hospitalist This note was generated with LightTableation software. It may contain incorrect words, spelling, and punctuation that were not noted in checking the note before signing. Lab Data Attestation: I reviewed the patient's lab results. Labs: Laboratory Results - last 24 hr 11/15/24 11/15/24 10:13 12:25 WBC 20.1 H RBC 4.43 L Hgb 14.0 Hct 42.3 MCV 95.5 H MCH 31.6 MCHC 33.1 RDW Std Deviation 47.7 H RDW Coeff of Crystal 13.5 Plt Count 221 MPV 9.4 Immature Gran % (Auto) 0.400 Neut % (Auto) 86.4 H Lymph % (Auto) 6.7 L [place] % (Auto) 6.1 Eos % (Auto) 0.2 Baso % (Auto) 0.2 Absolute Neuts (auto) 17.3 H Absolute Lymphs (auto) 1.35 Nucleated RBC % 0 D-Dimer Quant (PE/DVT) 0.90 H* Sodium 139 Potassium 4.3 Chloride 102 Carbon Dioxide 24.4 Anion Gap 12 BUN 12 Creatinine 0.87 Est GFR (MDRD) Non-Af 87 BUN/Creatinine Ratio 14.0 Glucose 116 H Calcium 8.8 Troponin T High Sens 25 H Troponin T Hi Sens 2 Hr 21 Radiography Diagnostic Testing: Clinical Impression(s) from Imaging Studies Chest X-Ray 11/15/24 10:27 IMPRESSION: No active cardiopulmonary disease. Parenchymal scarring and/or subsegmental atelectasis, left lower lobe. Reading Location: [facility] Chest CTA 11/15/24 11:35 IMPRESSION: No signs of pulmonary embolism. Centrilobular emphysematous changes. Ground-glass opacities are scattered throughout the lower lobes. Can not exclude mild inflammation. Bronchiectatic changes along with bronchial thickening primarily in the lower lobes. Reading Location: [facility] Discharge Plan Triage Chief Complaint: Shortness of Breath ED Provider: Beau Costa Dx/Rx/DC Orders Prescriptions: No Action nitroglycerin 0.4 mg tablet, sublingual 0.4 mg SUBLINGUAL Q5-15M PRN (Reason: chest pain) Qty: 25 3RF Rx Instructions: until response; do not exceed 3 doses per event (DME) Handicap Placcard See Rx Instructions .ROUTE .MEDSUPPLY Qty: 1 0RF Rx Instructions: Time Duration: 99 months ipratropium-albuterol 0.5 mg-3 mg(2.5 mg base)/3 mL solution for nebulization 3 ml inhalation DAILY losartan 25 mg tablet 25 mg PO BID Qty: 180 4RF isosorbide mononitrate 30 mg tablet extended release 24 hr 30 mg PO DAILY Qty: 90 4RF Rx Instructions: Takes at 1200 albuterol sulfate 90 mcg/actuation HFA aerosol inhaler 2 puff INHALATION Q4H PRN (Reason: shortness of breath or wheezing) Qty: 8.5 3RF Rx Instructions: administer with spacer albuterol sulfate 2.5 mg /3 mL (0.083 %) solution for nebulization 2.5 mg INHALATION Q4H Qty: 180 6RF Brovana 15 mcg/2 mL solution for nebulization 15 mcg INHALATION BID Qty: 120 11RF budesonide 0.5 mg/2 mL suspension for nebulization 0.5 mg INHALATION BID Qty: 120 11RF guaifenesin 1,200 mg tablet extended release 12hr 1,200 mg PO Q12H Qty: 60 6RF aspirin 81 MG tablet 81 mg PO DAILY@2000 prednisone 10 mg tablet 10 mg PO DAILY metoprolol succinate 25 mg tablet extended release 24 hr 12.5 mg PO DAILY Qty: 45 4RF rosuvastatin 20 mg tablet 20 mg PO DAILY Qty: 90 4RF Primary Care Provider: Deuce Baig Referrals: Deuce Baig DO [Primary Care Provider] - Print Language: Bruneian
[2024-11-15] MEDS: MethylPREDNISolone 125 MG/2 ML Vial IV (10:31)
[2024-11-15 10:48] LABS: Absolute Lymphocyte Count 1.35 X10^3/uL (0.83-4.51); Absolute Neutrophil Count 17.3 X10^3/uL (2.0-7.7); Basophil# 0.05 X10^3/uL; Basophil% 0.2 % (0-1); Eosinophil# 0.04 X10^3/uL; Eosinophils% 0.2 % (0-5); Hematocrit 42.3 % (40-54); Lymphocyte # 1.35 X10^3/ul (0.83-4.51); Lymphocyte % 6.7 % (19-41); Mean Corp Hgb Conc 33.1 g/dL (32-36); Mean Corpuscular Hgb 31.6 pg (27.0-32.0); Mean Corpuscular Volume 95.5 fL (80-94); Mean Platelet Vol. 9.4 fl (6.2-12.0); Monocyte# 1.22 X10^3/uL; Monocyte% 6.1 % (0-10); NRBC Flagged by Analyzer 0 % (0-5); Neutrophil # 17.32 X10^3/uL (2.7-7.7); Neutrophil % 86.4 % (47-70); Platelet Count 221 K/mm3 (150-450); RBC Distribution Width CV 13.5 % (11.6-14.6); RBC Distribution Width SD 47.7 fl (35.1-43.9); Red Blood Count 4.43 M/mm3 (4.6-6.2); White Blood Count 20.1 K/mm3 (4.4-11.0)
[2024-11-15 10:58] LABS: Troponin T High Sensitivity 25 ng/L (<=22)
[2024-11-15 11:03] LABS: Anion Gap 12 (5-15); BUN 12 mg/dL (4-19); Calcium,Total 8.8 mg/dL (7.6-11.0); Carbon Dioxide 24.4 mmol/L (21.0-32.0); Chloride 102 mmol/L (98-108); Creatinine, Serum 0.87 mg/dL (0.70-1.20); EST Glomerular Filtration Rate 87 (>60); Glucose 116 mg/dL (70-99); Potassium 4.3 mmol/L (3.3-5.1); Sodium Level 139 mmol/L (133-145)
--- NOTE | 2024-11-15 11:35 | CT_ITS ---
PROCEDURE: CTA CHEST WITH CONTRAST 11/15/2024 REASON FOR EXAM: SOB, ELEVATED DIMER TECHNIQUE: CTA imaging of the chest with intravenous contrast. Contiguous axial scans of 1.25 mm slice thicknesses Sagittal and coronal multiplanar and multisequence images were obtained. One or more dose reduction techniques were used (e.g., Automated exposure control, adjustment of the mA and/or kV according to patient size, use of iterative reconstruction technique). CONTRAST: Isovue 370 VOLUME: 90 mL Contiguous axial scans of mm slice thicknesses. Sagittal and coronal reconstruction images were obtained. One or more dose reduction techniques were used (e.g., automated exposure control, adjustment of mA and/or kv according to patient size, use of iterative reconstruction technique). RADIATION DOSE SUMMARY: DLP: 430.93 mGycm COMPARISON: Chest radiograph dated 12/24/2019 FINDINGS: Lungs and Airways: Bilateral centrilobular emphysematous changes are noted. Bronchiectatic changes along with bronchial thickening in the lower lobes. Areas of ground-glass opacification are also scattered throughout the lower lobes. 0.7 cm noncalcified micronodule in the right upper lobe, axial image 107. A 0.7 cm noncalcified micronodule in the superior segment of the left lower lobe, axial image 107. Old healed granulomatous changes in the right lower lobe. Pleura: No pleural effusion. No pneumothorax. Heart: Normal heart size. No pericardial effusion. Pericardium: No thickening. Coronary arteries: Mild calcifications. Thoracic Aorta: No thoracic aortic aneurysm or dissection. Pulmonary Vessels: No large central filling defects. Mediastinum: No mediastinal hilar or axillary lymphadenopathy. Thyroid:No nodules.. Upper Abdomen: Visualized portions of the upper abdominal viscera are unremarkable. Bones: Mild multilevel spondylosis. Median sternotomy wires are noted. CT/CTA Chest W/WO Contrast IMPRESSION: No signs of pulmonary embolism. Centrilobular emphysematous changes. Ground-glass opacities are scattered throughout the lower lobes. Can not exclu de mild inflammation. Bronchiectatic changes along with bronchial thickening primarily in the lower l obes. Reading Location: [facility]
[2024-11-15 13:09] LABS: Troponin T High Sens 2 HR 21 ng/L (<=22)
--- NOTE | 2024-11-15 13:25 | CM.ED ---
Care Management Face to Face with patient for initial transition planning/care coordination assessment in the ED.? This law writer introduced self and role at [facility]. Patient alert and oriented. Patient willing to participate in assessment and is able to answer all questions appropriately.? Care providers, pharmacy, and demographics verified. Admitting Diagnosis: ?Shortness of breath Other diagnosis history: ?Claudication, Premature ventricular contraction, Ischemic cardiomyopathy, COPD PCP: ?Jovanni Specialists: Jovany Tillman Preferred Pharmacy: [facility] Insurance: ?Medicare Prescription Benefit: yes Living Will/HPOA: both completed, on file LNOK: Daughter Living Arrangements: ?lives in a mobile home with sig other, independent with ADLs and IADLs Transportation: ?patient drives DME: ?scooter, grab bars, walk in shower, pulse ox, oxygen and cpap ? uses [facility]: ?none SNF/Rehab: None Community Resources: none Behavioral Health History: none Patient goals: Patient wishes to discharge home. Disposition Plan: admission to acute; RN CM/SW to follow for discharge planning needs that may arise. Vivi Shell, ESTATE PLANNING [place], ORDNANCE ARTIFICER HELPER
--- NOTE | 2024-11-15 13:45 | PCM.HP.STD ---
[facility] - General General Date of Admission: 11/15/24 Date of Service: 11/15/24 Chief Complaint: SOB worsening for 2 months. 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 Patient was on 4 L of home oxygen at rest but for last 2 months he has been using 6 L at rest. Patient was seen in the pulmonary office 2 months ago and is on prednisone 10 mg and antibiotic 3 times a week but is still did not improve. In ED, patient is tachypneic 30 to 34/min and on 5 L oxygen. He only had IV Solu-Medrol 125 mg in ED. Chest CTA was done and is discussed assessment plan. 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, implants and grafts, initial encounter Nocturnal hypoxia Tobacco dependence in remission Chronic hypoxemic respiratory failure COPD (chronic obstructive pulmonary disease) Home Medications ?Medication ?Instructions ?Recorded ?Last Taken ?Type aspirin 81 mg tablet,delayed 81 mg PO DAILY@1999 [facility] 12/24/19 11/14/24 History release nitroglycerin 0.4 mg sublingual 0.4 mg sublingual Q5-15M PRN chest 03/22/22 Unknown Rx tablet pain #25 tabs Handicap Placcard #1 ea 07/29/22 Unknown Rx albuterol sulfate 2.5 mg/3 mL 2.5 mg (3 mL) inhalation Q4H #180 08/14/24 11/14/24 Rx (0.083 %) solution for nebulization mL albuterol sulfate 90 mcg/actuation 2 puff inhalation Q4H PRN 08/14/24 Unknown Rx aerosol inhaler shortness of breath or wheezing #8.5 grams arformoterol 15 mcg/2 mL solution 15 mcg (2 mL) inhalation BID #120 08/14/24 11/14/24 Rx for nebulization (Brovana) mL budesonide 0.5 mg/2 mL suspension 0.5 mg (2 mL) inhalation BID #120 08/14/24 11/14/24 Rx for nebulization mL guaifenesin 1,200 mg tablet, 1,200 mg PO Q12H #60 tabs 08/14/24 11/14/24 Rx extended release 12 hr metoprolol succinate 25 mg 12.5 mg (1/2 x 25 mg) PO DAILY #45 08/20/24 11/14/24 Rx tablet,extended release 24 hr TABLETS rosuvastatin 20 mg tablet 20 mg PO DAILY #90 tabs 08/20/24 11/14/24 Rx ipratropium 0.5 mg-albuterol 3 mg 3 ml inhalation DAILY 09/11/24 11/14/24 History (2.5 mg base)/3 mL nebulization soln isosorbide mononitrate 30 mg 30 mg PO DAILY #90 tabs 09/11/24 11/14/24 Rx tablet,extended release 24 hr losartan 25 mg tablet 25 mg PO BID #180 tabs 09/11/24 11/14/24 Rx prednisone 10 mg tablet 10 mg PO DAILY 11/15/24 11/14/24 History Allergy/AdvReac Type Severity Reaction Status Date / Time tiotropium (From Spiriva AdvReac Severe Decreased Verified 11/15/24 10:01 with HandiHaler) Urination cyanocobalamin (vitamin B12) AdvReac Other Verified 11/15/24 10:01 Family History Sister CAD (coronary artery disease) Hx of CABG Sister Breast cancer Brother COPD (chronic obstructive pulmonary disease) Surgical History Presence of aortocoronary bypass graft (~08/01/01) History of cochlear implant Postsurgical percutaneous transluminal coronary angioplasty (PTCA) status (~1989) Aortocoronary bypass status (~08/01/01) History of vasectomy Social History Smoking Status: Former smoker how long ago did patient quit smokin + years ago second hand exposure: No alcohol intake: current alcohol intake frequency: a few times a week substance use type: does not use caffeine: Yes ROS ROS Narrative Constitutional: Reports fatigue and weakness. No fever. No dyspnea at rest. HEENT: Right ear cochlear implant. Left hearing aid. Reports systems reviewed and no addt'l complaints, except as documented Respiratory/Chest: Hide described in HPI. CVS: Denies chest pressure. Intermittent pleuritic chest pain on coughing/dyspnea. CAD s/p three-vessel CABG Gastrointestinal: Denies coffee ground emesis, hematemesis or vomiting Genitourinary: Denies burning urination or new urinary tract symptoms Musculoskeletal: Denies acute joint pain or limited range of motion. No acute injury Neurologic: Denies seizure-like symptoms. skin: No ulcer. No rash Endocrinology: Reports systems reviewed and no addt'l complaints, except as documented Hematologic/Lymphatic: Reports systems reviewed and no addt'l complaints, except as documented Rest 14 ROS are negative except as mentioned in HPI Vital Signs Vital Signs Vital Signs: 11/15/24 10:00 11/15/24 10:00 11/15/24 10:04 Temperature 98 F 98.1 F Temperature Source Temporal Oral Pulse Rate 86 80 Respiratory Rate 32 H 34 H Respiratory Effort Respiratory Depth Respiratory Pattern Blood Pressure 148/77 H 155/82 H Blood Pressure Mean 100 106 Pulse Ox 91 93 88 Oxygen Delivery Method Nasal Cannula Nasal Cannula Nasal Cannula Oxygen Flow Rate (L/min) 5 5 5 11/15/24 10:04 11/15/24 10:27 11/15/24 11:04 Temperature 98.7 F Temperature Source Oral Pulse Rate 74 Respiratory Rate 16 Respiratory Effort Short of Breath Respiratory Depth Shallow Respiratory Pattern Tachypnea Blood Pressure 134/76 H Blood Pressure Mean 95 Pulse Ox 97 Oxygen Delivery Method Nasal Cannula Nasal Cannula Room Air Oxygen Flow Rate (L/min) 5 11/15/24 12:00 11/15/24 12:00 11/15/24 13:00 Temperature 98.7 F 98.7 F Temperature Source Oral Oral Pulse Rate 70 75 Respiratory Rate 70 H 20 H 23 H Respiratory Effort Respiratory Depth Respiratory Pattern Blood Pressure 123/69 H 123/69 H 130/71 H Blood Pressure Mean 87 87 90 Pulse Ox 94 93 Oxygen Delivery Method Nasal Cannula Nasal Cannula Oxygen Flow Rate (L/min) 5 5 11/15/24 13:00 11/15/24 13:05 Temperature 98.7 F Temperature Source Pulse Rate 83 Respiratory Rate 21 H Respiratory Effort Respiratory Depth Respiratory Pattern Blood Pressure 130/71 H 130/71 H Blood Pressure Mean 90 90 Pulse Ox 93 Oxygen Delivery Method Oxygen Flow Rate (L/min) Physical Exam Narrative General: Alert, Oriented x3, Cooperative HEENT moderate hearing loss on hearing aids.: Atraumatic, PERRLA, EOMI, Normocephalic. Oral: Oral mucosa dry. No Gingival or Mucosal Lesions/ Ulcerations Neck: Supple, No JVD, Negative Carotid Bruits Chest wall/Lungs: Air entry severely diminished in all lung montes. Bilateral expiratory rhonchi. Cardiovascular: Regular rate and rhythm, Normal S1,S2, systolic murmur. CABG Abdomen: Bowel Sounds Present, Soft, Non Tender, Non-Distended : No dysuria. No renal angle tenderness. No suprapubic tenderness. Extremities: No edema, Capillary Refill Less than 3 Seconds Skin: No rashes, No breakdown Musculoskeletal: No Tenderness to Palpation of Joints or Extremities. ROM intact. Neurological: Cranial nerves II-XII grossly intact, DTR 2+/4. No acute focal neurological deficit. Psych/Mental Status: Normal Affect, Appropriate. Results Lab / Micro Data 11/15/24 10:13 11/15/24 10:13 Labs: Laboratory Results - last 24 hr 11/15/24 10:13: WBC 20.1 H, RBC 4.43 L, Hgb 14.0, Hct 42.3, MCV 95.5 H, MCH 31.6, MCHC 33.1, RDW Std Deviation 47.7 H, RDW Coeff of Crystal 13.5, Plt Count 221, MPV 9.4, Immature Gran % (Auto) 0.400, Neut % (Auto) 86.4 H, Lymph % (Auto) 6.7 L, Porter % (Auto) 6.1, Eos % (Auto) 0.2, Baso % (Auto) 0.2, Absolute Neuts (auto) 17.3 H, Absolute Lymphs (auto) 1.35, Nucleated RBC % 0, D-Dimer Quant (PE/DVT) 0.90 H*, Sodium 139, Potassium 4.3, Chloride 102, Carbon Dioxide 24.4, Anion Gap 12, BUN 12, Creatinine 0.87, Est GFR (MDRD) Non-Af 87, BUN/Creatinine Ratio 14.0, Glucose 116 H, Calcium 8.8, Troponin T High Sens 25 H 11/15/24 12:25: Troponin T Hi Sens 2 Hr 21 Imaging Radiology Impression Chest X-Ray 11/15/24 10:27 IMPRESSION: No active cardiopulmonary disease. Parenchymal scarring and/or subsegmental atelectasis, left lower lobe. Reading Location: [facility] Chest CTA 11/15/24 11:35 IMPRESSION: No signs of pulmonary embolism. Centrilobular emphysematous changes. Ground-glass opacities are scattered throughout the lower lobes. Can not exclude mild inflammation. Bronchiectatic changes along with bronchial thickening primarily in the lower lobes. Reading Location: [facility] Assessment & Plan Assessment/Plan (1) Acute on chronic hypoxic respiratory failure: (2) COPD exacerbation: PLAN: Plan This 79-year-old gentleman with end-stage COPD is being admitted for COPD exacerbation 1. Acute on chronic hypoxic respiratory failure due to COPD exacerbation: Patient is being admitted in the PCU. Chest CTA shows no signs of pulmonary embolism but groundglass opacities scattered throughout the lower lobes. Bronchiectatic changes along with bronchial thickening primarily in the lower lobes. With bronchiectasis changes lower lobes, started on IV Zosyn and Zithromax. Automation Technician consult. Pneumonia workup ordered. ABG 7.4 on 5 L of oxygen. Start on Airvo as patient is respiratory muscle fatigued and mild going ventilatory failure. Patient is being managed on scheduled bronchodilator, IV Solu-Medrol, Mucinex?DM, Tessalon Perles , incentive spirometry and Pep. 2. Bronchiectasis and end-stage COPD: Chest x-ray and CT images reviewed. 3. CAD status post CABG: Patient home medications continued. On baby aspirin, Imdur, losartan, metoprolol and rosuvastatin. 4. Hypertension and dyslipidemia: As mentioned above. Blood pressure in normal range. 5. Chronic tobacco use, patient quit about a year ago 6. DVT prophylaxis high risk: Enoxaparin 40 mL subcu daily. Living will/advanced directive/end of life care: Patient does not living will or advanced directive. His girlfriend who lives for many years is next to kin and present to ED. After discussion of benefits/risks procedures involved with full code, DNR CC arrest and DNR CC, the patient opted for DNR CC arrest with no intubation Patient doesn't want artificial life support including intubation, tube feed, ventilator and/chest compression, and DC shock if needed. Patient is unclear about central line/PICC line or vasopressor if needed. Total time spent in [id number] encounter in discussion of advanced directive 17 minutes. Laboratory Results 11/15/24 10:13: WBC 20.1 H, RBC 4.43 L, Hgb 14.0, Hct 42.3, MCV 95.5 H, MCH 31.6, MCHC 33.1, RDW Std Deviation 47.7 H, RDW Coeff of Crystal 13.5, Plt Count 221, MPV 9.4, Immature Gran % (Auto) 0.400, Neut % (Auto) 86.4 H, Lymph % (Auto) 6.7 L, Porter % (Auto) 6.1, Eos % (Auto) 0.2, Baso % (Auto) 0.2, Absolute Neuts (auto) 17.3 H, Absolute Lymphs (auto) 1.35, Nucleated RBC % 0, D-Dimer Quant (PE/DVT) 0.90 H*, Sodium 139, Potassium 4.3, Chloride 102, Carbon Dioxide 24.4, Anion Gap 12, BUN 12, Creatinine 0.87, Est GFR (MDRD) Non-Af 87, BUN/Creatinine Ratio 14.0, Glucose 116 H, Calcium 8.8, Magnesium Pending, Troponin T High Sens 25 H 11/15/24 12:25: Troponin T Hi Sens 2 Hr 21 11/15/24 14:04: Specimen Type ART, Sample Site R Radial, pH 7.43, Bicarbonate Actual 26.6 H, Total CO2 28, Base Excess 2, O2 Saturation 97, O2 % 5.0, ABG pCO2 39.9, ABG pO2 86, Geoff Test Positive, O2 Delivery Device Cannula, Vent Mode Not entered 11/15/24 14:30: Troponin T Hi Sens 4Hr Pending Clinical Impression(s) from Imaging Studies Chest X-Ray 11/15/24 10:27 IMPRESSION: No active cardiopulmonary disease. Parenchymal scarring and/or subsegmental atelectasis, left lower lobe. Reading Location: [facility] Chest CTA 11/15/24 11:35 IMPRESSION: No signs of pulmonary embolism. Centrilobular emphysematous changes. Ground-glass opacities are scattered throughout the lower lobes. Can not exclude mild inflammation. Bronchiectatic changes along with bronchial thickening primarily in the lower lobes. Reading Location: [facility] Charges/Coding Visit Charges Inpatient E&M: 19768 Init Hosp L3 Procedures Hospitalists Procedures: 90400 Advncd Care Plan 30 Min
[2024-11-15 14:08] LABS: Allen Test Positive; Base Excess 2 mmol/L (-2 to +2); Bicarbonate 26.6 mmol/L (22-26); Blood Gas Specimen Type ART; Mode Not entered; O2 Delivery Device Cannula; PO2 86 mmHG (75-100); SITE R Radial; SO2 97 % (95-99); Total Carbon Dioxide 28 mmol/L; pCO2 39.9 mmHg (35-45); pH 7.43 (7.35-7.45)
[2024-11-15 15:15] LABS: Troponin T High Sens 4 HR 20 ng/L (<=22)
[2024-11-15 15:16] LABS: Magnesium 2.1 mg/dL (1.5-2.2)
[2024-11-15] MEDS: 0.9% Normal Saline (1000mL) 1,000 ML 75 ML IV (16:21)
[2024-11-15] MEDS: 0.9% Saline Lock 10 ML Syringe IV (16:21)
[2024-11-15] MEDS: Piperacil/Tazobactam 3.375 GM in 0.9% Normal Saline (50mL MB+) 50 ML IV ×2 (16:23→22:48)
[2024-11-15] MEDS: 0.9% Normal Saline (250mL Bag) 250 ML 15 ML IV (16:23)
[2024-11-15] MEDS: Azithromycin 250 MG Tablet 500 MG PO (16:29)
[2024-11-15] MEDS: guaiFENesin/D-Methorphan TAB.SR.12H 2 TABLET PO ×2 (16:29→22:31)
[2024-11-15] MEDS: Ipratropium/Albuterol Sulfate 3 ML AMPUL.NEB INHALATION ×2 (16:50→23:05)
[2024-11-15] MEDS: Enoxaparin 40 MG/0.4 ML Syringe SC (17:09)
[2024-11-15] MEDS: Losartan Potassium 25 MG Tablet PO (22:31)
[2024-11-15] MEDS: Aspirin E.C. 81 MG Tablet PO (22:31)
[2024-11-15] MEDS: Benzonatate 100 MG Capsule 200 MG PO (22:31)
--- NOTE | 2024-11-15 23:15 | CPS ---
Pt placed on his own Non-invasive ventilator from home to sleep on tonigh.
[2024-11-16] VITALS (13 sets, daily range): BP systolic 110–138; BP diastolic 65–68; PULSE 65–107; RESP 18–32; TEMP 36.5–36.8; O2SAT 90–97
[2024-11-16] MEDS: Ipratropium/Albuterol Sulfate 3 ML AMPUL.NEB INHALATION ×6 (04:35→23:29)
[2024-11-16] MEDS: Lorazepam 2 MG/ML WCH Syringe 0.5 MG IV (04:42)
[2024-11-16 05:52] LABS: Absolute Lymphocyte Count 0.64 X10^3/uL (0.83-4.51); Absolute Neutrophil Count 14.4 X10^3/uL (2.0-7.7); Basophil# 0.02 X10^3/uL; Basophil% 0.1 % (0-1); Hematocrit 42.5 % (40-54); Hemoglobin 13.8 g/dL (13.0-16.5); Lymphocyte # 0.64 X10^3/ul (0.83-4.51); Lymphocyte % 4.2 % (19-41); Mean Corp Hgb Conc 32.5 g/dL (32-36); Mean Corpuscular Hgb 31.5 pg (27.0-32.0); Mean Platelet Vol. 9.2 fl (6.2-12.0); Monocyte# 0.13 X10^3/uL; Monocyte% 0.9 % (0-10); NRBC Flagged by Analyzer 0 % (0-5); Neutrophil % 94.1 % (47-70); Platelet Count 242 K/mm3 (150-450); RBC Distribution Width CV 13.4 % (11.6-14.6); RBC Distribution Width SD 48.3 fl (35.1-43.9); Red Blood Count 4.38 M/mm3 (4.6-6.2); White Blood Count 15.3 K/mm3 (4.4-11.0)
[2024-11-16] MEDS: Piperacil/Tazobactam 3.375 GM in 0.9% Normal Saline (50mL MB+) 50 ML IV ×3 (05:58→21:45)
[2024-11-16 06:22] LABS: Anion Gap 15 (5-15); BUN 17 mg/dL (4-19); BUN/Creat Ratio 17.4 RATIO (10-20); Calcium,Total 8.7 mg/dL (7.6-11.0); Carbon Dioxide 18.6 mmol/L (21.0-32.0); Chloride 105 mmol/L (98-108); Creatinine, Serum 0.97 mg/dL (0.70-1.20); EST Glomerular Filtration Rate 79 (>60); Estimated Creatinine Clearance 60.74 ml/min (50-250); Glucose 114 mg/dL (70-99); Potassium 4.3 mmol/L (3.3-5.1); Sodium Level 139 mmol/L (133-145)
--- NOTE | 2024-11-16 08:49 | EX.PCM.CONCC ---
Assessment & Plan Assessment/Plan (1) COPD exacerbation: PLAN: Plan RECOMMENDATIONS: 1. Supplemental oxygen to maintain saturations at or above 90%. 2. Obtain echocardiogram. 3. Continue empiric antibiotics, pending culture results. 4. Continue bronchodilators and steroids. 5. Continue appropriate DVT prophylaxis. 6. Encourage incentive spirometer use and mobilize patient as tolerated. IMPRESSIONS: 1. Shortness of breath/chronic hypoxemic respiratory failure/end-stage COPD with exacerbation The patient is followed in the pulmonary medicine clinic due to a history of end-stage COPD on maximum outpatient therapy along with noninvasive ventilator and baseline oxygen requirement of 6 L/min. In addition, the patient is maintained on low-dose prednisone and azithromycin on Tuesday, Tuesday, Tuesday. He continues to experience dyspnea, despite negative acute pulmonary workup. The findings noted on CT imaging of the chest all appear chronic. The patient is on his baseline oxygen requirement of 6 L/min. At this time, we will plan to continue antibiotics, pending sputum culture results. He will be continued on scheduled bronchodilators and steroids. BNP and procalcitonin were unremarkable. Echocardiogram will be obtained to evaluate for any cardiac dysfunction. Otherwise, given the end-stage nature of his lung disease, the patient would be appropriate for referral to palliative care for ongoing assistance with symptom management. 2. History of coronary artery disease status post CABG/hypertension/chronic tobacco dependency in remission Complicates care, management, recovery and prognosis. Continue supportive care as noted above. This note was generated with Chir[employer] dictation software. It may contain incorrect words, spelling, and punctuation that were not noted in checking the note before signing. HPI Consult Data Date of Consult: 11/16/24 HPI Narrative Reason for Consultation: COPD exacerbation HPI Narrative: The patient is an 79-year-old male, with a history as outlined below, who presented to the emergency department on November 15 with worsening dyspnea. The patient has a known history of end-stage COPD along with chronic hypoxemic respiratory failure, with a baseline oxygen requirement of 5 to 6 L/min. In addition, he is prescribed a noninvasive ventilator at his baseline and is maintained on a triple therapy nebulizer regimen. He is also maintained on azithromycin 3 times weekly and chronic low-dose prednisone therapy. The patient is followed in the pulmonary medicine clinic on an outpatient basis, with his last appointment having occurred in September 2024. On presentation to the emergency department, the patient was documented to be afebrile hemodynamically stable. Laboratory evaluation was notable for a white blood cell count of 20,000. ABG was notable for a pH of 7.43 with a pCO2 of 40 and pO2 of 86. Chemistry profile was unremarkable. COVID, influenza and RSV PCR's were negative. Respiratory viral panel was negative. Strep and urine Legionella antigens were negative. CTA showed no evidence for pulmonary embolism, but did demonstrate bilateral emphysematous changes along with lower lobe bronchiectasis and stable pulmonary nodules. The patient was subsequently placed on antimicrobials, bronchodilators and steroids. He was admitted to the hospital for further management. 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, implants and grafts, initial encounter Nocturnal hypoxia Tobacco dependence in remission Chronic hypoxemic respiratory failure COPD (chronic obstructive pulmonary disease) Home Medications ?Medication ?Instructions ?Recorded ?Last Taken ?Type aspirin 81 mg tablet,delayed 81 mg PO DAILY@1999 [facility] 12/24/19 11/14/24 History release nitroglycerin 0.4 mg sublingual 0.4 mg sublingual Q5-15M PRN chest 03/22/22 Unknown Rx tablet pain #25 tabs Handicap Placcard #1 ea 07/29/22 Unknown Rx albuterol sulfate 2.5 mg/3 mL 2.5 mg (3 mL) inhalation Q4H #180 08/14/24 11/14/24 Rx (0.083 %) solution for nebulization mL albuterol sulfate 90 mcg/actuation 2 puff inhalation Q4H PRN 08/14/24 Unknown Rx aerosol inhaler shortness of breath or wheezing #8.5 grams arformoterol 15 mcg/2 mL solution 15 mcg (2 mL) inhalation BID #120 08/14/24 11/14/24 Rx for nebulization (Brovana) mL budesonide 0.5 mg/2 mL suspension 0.5 mg (2 mL) inhalation BID #120 08/14/24 11/14/24 Rx for nebulization mL guaifenesin 1,200 mg tablet, 1,200 mg PO Q12H #60 tabs 08/14/24 11/14/24 Rx extended release 12 hr metoprolol succinate 25 mg 12.5 mg (1/2 x 25 mg) PO DAILY #45 08/20/24 11/14/24 Rx tablet,extended release 24 hr TABLETS rosuvastatin 20 mg tablet 20 mg PO DAILY #90 tabs 08/20/24 11/14/24 Rx ipratropium 0.5 mg-albuterol 3 mg 3 ml inhalation DAILY 09/11/24 11/14/24 History (2.5 mg base)/3 mL nebulization soln isosorbide mononitrate 30 mg 30 mg PO DAILY #90 tabs 09/11/24 11/14/24 Rx tablet,extended release 24 hr losartan 25 mg tablet 25 mg PO BID #180 tabs 09/11/24 11/14/24 Rx prednisone 10 mg tablet 10 mg PO DAILY 11/15/24 11/14/24 History Allergy/AdvReac Type Severity Reaction Status Date / Time tiotropium (From Spiriva AdvReac Severe Decreased Verified 11/15/24 10:01 with HandiHaler) Urination cyanocobalamin (vitamin B12) AdvReac Other Verified 11/15/24 10:01 Family History Sister CAD (coronary artery disease) Hx of CABG Sister Breast cancer Brother COPD (chronic obstructive pulmonary disease) Surgical History Presence of aortocoronary bypass graft (~08/01/01) History of cochlear implant Postsurgical percutaneous transluminal coronary angioplasty (PTCA) status (~1989) Aortocoronary bypass status (~08/01/01) History of vasectomy Social History Smoking Status: Former smoker how long ago did patient quit smokin + years ago second hand exposure: No alcohol intake: current alcohol intake frequency: a few times a week substance use type: does not use caffeine: Yes ROS ROS Narrative 10 systems were reviewed with pertinent positives as noted in the HPI above. Physical Exam Const alert, oriented x3 and no apparent distress General Appearance: cooperative HEENT normocephalic, head/scalp atraumatic and moist oral mucous membranes Eyes PERRL, EOMs intact bilaterally and conjunctivae normal Neck supple General: trachea midline Chest inspection of chest normal Resp Effort and Inspection: able to speak in complete sentences and tachypneic Auscultation: diminished lung sounds; Negative for rales, rhonchi or wheezes Cardio regular rate and regular rhythm GI normal to inspection, nondistended, normoactive bowel sounds Extremity no clubbing, cyanosis or edema Skin no rashes or lesions noted Neuro CN's II-XII intact bilaterally, moves all extremities and no focal motor deficits Psych cooperative and affect normal Lab / Micro Data 11/16/24 04:27 11/16/24 04:27 Labs: Laboratory Results - last 24 hr 11/15/24 10:13: WBC 20.1 H, RBC 4.43 L, Hgb 14.0, Hct 42.3, MCV 95.5 H, MCH 31.6, MCHC 33.1, RDW Std Deviation 47.7 H, RDW Coeff of Crystal 13.5, Plt Count 221, MPV 9.4, Immature Gran % (Auto) 0.400, Neut % (Auto) 86.4 H, Lymph % (Auto) 6.7 L, [place] % (Auto) 6.1, Eos % (Auto) 0.2, Baso % (Auto) 0.2, Absolute Neuts (auto) 17.3 H, Absolute Lymphs (auto) 1.35, Nucleated RBC % 0, D-Dimer Quant (PE/DVT) 0.90 H*, Sodium 139, Potassium 4.3, Chloride 102, Carbon Dioxide 24.4, Anion Gap 12, BUN 12, Creatinine 0.87, Est GFR (MDRD) Non-Af 87, BUN/Creatinine Ratio 14.0, Glucose 116 H, Calcium 8.8, Magnesium 2.1, Troponin T High Sens 25 H 11/15/24 12:25: Troponin T Hi Sens 2 Hr 21 11/15/24 14:30: Troponin T Hi Sens 4Hr 20 11/16/24 04:27: WBC 15.3 H, RBC 4.38 L, Hgb 13.8, Hct 42.5, MCV 97.0 H, MCH 31.5, MCHC 32.5, RDW Std Deviation 48.3 H, RDW Coeff of Crystal 13.4, Plt Count 242, MPV 9.2, Immature Gran % (Auto) 0.700, Neut % (Auto) 94.1 H, Lymph % (Auto) 4.2 L, [place] % (Auto) 0.9, Eos % (Auto) 0.0, Baso % (Auto) 0.1, Absolute Neuts (auto) 14.4 H, Absolute Lymphs (auto) 0.64 L, Nucleated RBC % 0, Sodium 139, Potassium 4.3, Chloride 105, Carbon Dioxide 18.6 L, Anion Gap 15, BUN 17, Creatinine 0.97, Estim Creat Clear Calc 60.74, Est GFR (MDRD) Non-Af 79, BUN/Creatinine Ratio 17.4, Glucose 114 H, Calcium 8.7 Micro: Microbiology 11/15/24 16:40 Mucosa - Nasopharyngeal Respiratory Panel (PCR) - Final 11/15/24 16:40 Mucosa - Nasopharyngeal Coronavirus COVID-19 PCR - Final 11/15/24 15:30 Urine, Clean Catch Legionella Antigen - Final 11/15/24 15:30 Urine, Clean Catch Streptococcus pneumoniae Antigen (M - Final ABG Data ABG results: ABG 11/15/24 14:04 Specimen Type ART Sample Site R Radial pH 7.43 Bicarbonate Actual 26.6 H Total CO2 28 Base Excess 2 O2 Saturation 97 O2 % 5.0 ABG pCO2 39.9 ABG pO2 86 Geoff Test Positive O2 Delivery Device Cannula Vent Mode Not entered Imaging Radiology Impression Chest X-Ray 11/15/24 10:27 IMPRESSION: No active cardiopulmonary disease. Parenchymal scarring and/or subsegmental atelectasis, left lower lobe. Reading Location: [facility] Chest CTA 11/15/24 11:35 IMPRESSION: No signs of pulmonary embolism. Centrilobular emphysematous changes. Ground-glass opacities are scattered throughout the lower lobes. Can not exclude mild inflammation. Bronchiectatic changes along with bronchial thickening primarily in the lower lobes. Reading Location: [facility] Charges/Coding Visit Charges Inpatient E&M: 25996 Init Hosp L3
--- NOTE | 2024-11-16 08:59 | PN.HOSP_ITS ---
Reason for Visit Reason for Visit: Diagnoses Chronic obstructive pulmonary disease with (acute) exacerbation (11/15/24) Acute and chronic respiratory failure with hypoxia (11/15/24) Objective Data Objective Data Vital Signs: Vital Signs Temp Pulse Resp BP Pulse Ox O2 Del Method O2 Flow Rate 98.0 F 79 20 H 131/68 H 90 Nasal Cannula 5 11/16/24 03:47 11/16/24 07:07 11/16/24 07:07 11/16/24 03:47 11/16/24 07:07 11/16/24 07:07 11/16/24 07:07 Oxygen Flow Rate (L/min) 5 Oxygen Delivery Method Nasal Cannula Weight: 180 lb Body Mass Index (BMI) 26.6 Intake & Output: Intake and Output for Last 24 Hours 11/14/24 11/15/24 11/16/24 23:59 23:59 23:59 Intake Total 450.25 / 450.25 1050 / 1050 Balance 450.25 / 450.25 1050 / 1050 Lab / Micro Data 11/16/24 04:27 11/16/24 04:27 Labs: Laboratory Results - last 24 hr 11/15/24 10:13: WBC 20.1 H, RBC 4.43 L, Hgb 14.0, Hct 42.3, MCV 95.5 H, MCH 31.6, MCHC 33.1, RDW Std Deviation 47.7 H, RDW Coeff of Crystal 13.5, Plt Count 221, MPV 9.4, Immature Gran % (Auto) 0.400, Neut % (Auto) 86.4 H, Lymph % (Auto) 6.7 L, Walsh % (Auto) 6.1, Eos % (Auto) 0.2, Baso % (Auto) 0.2, Absolute Neuts (auto) 17.3 H, Absolute Lymphs (auto) 1.35, Nucleated RBC % 0, D-Dimer Quant (PE/DVT) 0.90 H*, Sodium 139, Potassium 4.3, Chloride 102, Carbon Dioxide 24.4, Anion Gap 12, BUN 12, Creatinine 0.87, Est GFR (MDRD) Non-Af 87, BUN/Creatinine Ratio 14.0, Glucose 116 H, Calcium 8.8, Magnesium 2.1, Troponin T High Sens 25 H 11/15/24 12:25: Troponin T Hi Sens 2 Hr 21 11/15/24 14:30: Troponin T Hi Sens 4Hr 20 11/16/24 04:27: WBC 15.3 H, RBC 4.38 L, Hgb 13.8, Hct 42.5, MCV 97.0 H, MCH 31.5, MCHC 32.5, RDW Std Deviation 48.3 H, RDW Coeff of Crystal 13.4, Plt Count 242, MPV 9.2, Immature Gran % (Auto) 0.700, Neut % (Auto) 94.1 H, Lymph % (Auto) 4.2 L, Walsh % (Auto) 0.9, Eos % (Auto) 0.0, Baso % (Auto) 0.1, Absolute Neuts (auto) 14.4 H, Absolute Lymphs (auto) 0.64 L, Nucleated RBC % 0, Sodium 139, Potassium 4.3, Chloride 105, Carbon Dioxide 18.6 L, Anion Gap 15, BUN 17, Creatinine 0.97, Estim Creat Clear Calc 60.74, Est GFR (MDRD) Non-Af 79, BUN/Creatinine Ratio 17.4, Glucose 114 H, Calcium 8.7 Micro: Microbiology 11/15/24 16:40 Mucosa - Nasopharyngeal Respiratory Panel (PCR) - Final 11/15/24 16:40 Mucosa - Nasopharyngeal Coronavirus COVID-19 PCR - Final 11/15/24 15:30 Urine, Clean Catch Legionella Antigen - Final 11/15/24 15:30 Urine, Clean Catch Streptococcus pneumoniae Antigen (M - Final ABG Data ABG results: ABG 11/15/24 14:04 Specimen Type ART Sample Site R Radial pH 7.43 Bicarbonate Actual 26.6 H Total CO2 28 Base Excess 2 O2 Saturation 97 O2 % 5.0 ABG pCO2 39.9 ABG pO2 86 Geoff Test Positive O2 Delivery Device Cannula Vent Mode Not entered Radiography Diagnostic Testing: Radiology Impression Chest X-Ray 11/15/24 10:27 IMPRESSION: No active cardiopulmonary disease. Parenchymal scarring and/or subsegmental atelectasis, left lower lobe. [facility] 11/15/24 11:35 IMPRESSION: No signs of pulmonary embolism. Centrilobular emphysematous changes. Ground-glass opacities are scattered throughout the lower lobes. Can not exclude mild inflammation. Bronchiectatic changes along with bronchial thickening primarily in the lower lobes. Reading Location: [facility] Physical Exam Narrative Seen and examined. Patient is still very short of breath, conversational dyspnea. Uses respiratory muscles in order to talk. Physical exam General: Alert, Oriented x3, Cooperative HEENT: Moderate hearing loss on hearing aids. Atraumatic, PERRLA, EOMI, Normocephalic. Oral: Oral mucosa dry. No Gingival or Mucosal Lesions/ Ulcerations Neck: Supple, No JVD, Negative Carotid Bruits Chest wall/Lungs: Air entry severely diminished in all lung montes. Dyspnea at rest. Tachypnea. Bilateral expiratory rhonchi. Cardiovascular: Regular rate and rhythm, Normal S1,S2, systolic murmur. CABG Abdomen: Bowel Sounds Present, Soft, Non Tender, Non-Distended : No dysuria. No renal angle tenderness. No suprapubic tenderness. Extremities: No edema, Capillary Refill Less than 3 Seconds Skin: No rashes, No breakdown Musculoskeletal: No Tenderness to Palpation of Joints or Extremities. ROM intact. Neurological: Cranial nerves II-XII grossly intact, DTR 2+/4. No acute focal neurological deficit. Psych/Mental Status: Normal Affect, Appropriate. 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 Acute on chronic hypoxic respiratory failure due to COPD exacerbation: Patient is being admitted in the PCU. Chest CTA shows no signs of pulmonary embolism but groundglass opacities scattered throughout the lower lobes. Bronchiectatic changes along with bronchial thickening primarily in the lower lobes. With bronchiectasis changes lower lobes, started on IV Zosyn and Zithromax. Slasher Operator consult. Pneumonia workup ordered. ABG 7.4 on 5 L of oxygen. Start on Airvo as patient is respiratory muscle fatigued and mild going ventilatory failure. Patient is being managed on scheduled bronchodilator, IV Solu-Medrol, Mucinex?DM, Tessalon Perles , incentive spirometry and Pep. 11/16: Pulmonary consult reviewed and appreciated. Patient has end-stage COPD. BNP and procalcitonin unremarkable. Recommended echo. Palliative care was recommended. 2. Bronchiectasis and end-stage COPD: Chest x-ray and CT images reviewed. 11/16 continue IV Zosyn. Respiratory panel negative. COVID-19 PCR negative. Gram stain shows 4+ WBC, 4+ GNR, 4+ GPR, 1+ GPC. Urinary antigens negative. Azithromycin discontinued. Doxycycline started. 3. CAD status post CABG: Patient home medications continued. On baby aspirin, Imdur, losartan, metoprolol and rosuvastatin. 4. Hypertension and dyslipidemia: As mentioned above. Blood pressure in normal range. 5. Chronic tobacco use, patient quit about a year ago 6. DVT prophylaxis high risk: Enoxaparin 40 mL subcu daily. Living will/advanced directive/end of life care: Patient does not living will or advanced directive. His girlfriend who lives for many years is next to kin and present to ED. After discussion of benefits/risks procedures involved with full code, DNR CC arrest and DNR CC, the patient opted for DNR CC arrest with no intubation Patient doesn't want artificial life support including intubation, tube feed, ventilator and/chest compression, and DC shock if needed. Patient is unclear about central line/PICC line or vasopressor if needed. Total time spent in [id number] encounter in discussion of advanced directive 17 minutes. Microbiology Past 72 Hours 11/15/24 15:50 Sputum, Expectorated/Coughed Gram Stain - Final 11/15/24 16:40 Mucosa - Nasopharyngeal Respiratory Panel (PCR) - Final 11/15/24 16:40 Mucosa - Nasopharyngeal Coronavirus COVID-19 PCR - Final 11/15/24 15:30 Urine, Clean Catch Legionella Antigen - Final 11/15/24 15:30 Urine, Clean Catch Streptococcus pneumoniae Antigen (M - Final Laboratory Results 11/15/24 10:13: Magnesium 2.1 11/15/24 14:04: Specimen Type ART, Sample Site R Radial, pH 7.43, Bicarbonate Actual 26.6 H, Total CO2 28, Base Excess 2, O2 Saturation 97, O2 % 5.0, ABG pCO2 39.9, ABG pO2 86, Geoff Test Positive, O2 Delivery Device Cannula, Vent Mode Not entered 11/15/24 14:30: Troponin T Hi Sens 4Hr 20 11/16/24 04:27: WBC 15.3 H, RBC 4.38 L, Hgb 13.8, Hct 42.5, MCV 97.0 H, MCH 31.5, MCHC 32.5, RDW Std Deviation 48.3 H, RDW Coeff of Crystal 13.4, Plt Count 242, MPV 9.2, Immature Gran % (Auto) 0.700, Neut % (Auto) 94.1 H, Lymph % (Auto) 4.2 L, Walsh % (Auto) 0.9, Eos % (Auto) 0.0, Baso % (Auto) 0.1, Absolute Neuts (auto) 14.4 H, Absolute Lymphs (auto) 0.64 L, Nucleated RBC % 0, Sodium 139, Potassium 4.3, Chloride 105, Carbon Dioxide 18.6 L, Anion Gap 15, BUN 17, Creatinine 0.97, Estim Creat Clear Calc 60.74, Est GFR (MDRD) Non-Af 79, BUN/Creatinine Ratio 17.4, Glucose 114 H, Calcium 8.7, NT pro BNP II 503, Procalcitonin 0.06 Clinical Impression(s) from Imaging Studies Chest X-Ray 11/15/24 10:27 IMPRESSION: No active cardiopulmonary disease. Parenchymal scarring and/or subsegmental atelectasis, left lower lobe. Reading Location: [facility] Chest CTA 11/15/24 11:35 IMPRESSION: No signs of pulmonary embolism. Centrilobular emphysematous changes. Ground-glass opacities are scattered throughout the lower lobes. Can not exclude mild inflammation. Bronchiectatic changes along with bronchial thickening primarily in the lower lobes. Reading Location: [facility] Charges/Coding Addendum Addendum: Total time of the visit including total time spent in counseling or coordination of care, (more than 50% of the total time, spent in obtaining medical information from nurses and other ancillary care providers ,explaining to the patient about labs, imaging, diagnosis and management of active complex medical conditions), pulmonary consult review, discussion about palliative/hospice care, review of labs and imaging is 35 minutes. Visit Charges Inpatient E&M: [id number] [place] [id number]
--- NOTE | 2024-11-16 09:29 | ECHOCS_ITS ---
Reason For Study Reason For Study: SOB Procedure This was a 2D Doppler, Color Flow transthoracic echocardiogram. The study was technically difficult. Exam performed portable in patient room. Left Ventricle Normal LV size. Mild concentric left ventricular hypertrophy. The LV systolic function is normal. EF is 55 %. Stage 1 diastolic dysfunction. Right Ventricle Normal right ventricle. Atria The left and right atria are normal. Bubble study appears positive for tiny PFO. Mitral Valve Mild (1+) mitral valve insufficiency. Tricuspid Valve Mild tricuspid valve insufficiency. Unable to estimate RV systolic pressure due to insufficient tricuspid regurgitant envelope. Aortic Valve Trisinus/trileaflet aortic valve. Mild (1+) aortic valve insufficiency. Pulmonic Valve The pulmonic valve is not well visualized. Great Vessels Normal sized aortic root. Pericardium/Pleural No pericardial effusion. Medication Performed a rapid injection of agitated mix of 9 cc saline and 1cc air to assess for atrial septal defect. Diluted definity 3.0ml given slow IV push to enhance endocardial definition. MMode/2D Measurements & Calculations LVIDd: 4.3 cm IVSd: 1.2 cm Ao root diam: 3.2 cm LVIDs: 2.3 cm LVPWd: 0.74 cm RVDd: 3.4 cm FS: 47.2 % LAV(MOD-bp): 24.9 ml LVAd ap4: 22.2 cm2 LVAd ap2: 29.5 cm2 LAV(MOD-bp) Indexed: 12.6 ml/m2 LVLd ap4: 7.4 cm LVLd ap2: 8.2 cm LAV(MOD-sp2): 24.4 ml EDV(MOD-sp4): 57.4 ml EDV(MOD-sp2): 92.7 ml LAV(MOD-sp4): 22.2 ml EDV(sp4-el): 56.8 ml EDV(sp2-el): 90.0 ml LVAs ap4: 13.3 cm2 LVAs ap2: 21.6 cm2 LVLs ap4: 7.0 cm LVLs ap2: 7.4 cm ESV(MOD-sp4): 21.8 ml ESV(MOD-sp2): 55.7 ml ESV(sp4-el): 21.3 ml ESV(sp2-el): 53.5 ml EF(MOD-sp4): 62.0 % EF(MOD-sp2): 39.9 % EF(sp4-el): 62.4 % SV(MOD-sp4): 35.6 ml SV(MOD-sp2): 37.0 ml SV(sp4-el): 35.5 ml SI(MOD-sp4): 18.0 ml/m2 SI(MOD-sp2): 18.7 ml/m2 LA A4 area: 12.5 cm2 LA dimension(2D): 3.4 cm RA A4 area: 15.7 cm2 TAPSE: 1.2 cm Time Measurements MV dec time: 0.40 sec Doppler Measurements & Calculations MV E max bal: 61.0 cm/sec Lat Peak E' Bal: 10.7 cm/sec Med Peak E' Bal: 10.7 cm/sec MV A max bal: 90.5 cm/sec E/E' lat: 5.7 E/E' med: 5.7 MV E/A: 0.67 MV dec slope: 151.2 cm/sec2 Ao V2 max: 170.3 cm/sec LV V1 max: 125.9 cm/sec Ao max P.6 mmHg LV V1 max P.3 mmHg Ao V2 mean: 111.4 cm/sec LV V1 mean P.6 mmHg Ao mean P.7 mmHg LV V1 mean: 88.0 cm/sec Ao V2 VTI: 28.9 cm LV V1 VTI: 24.5 cm AV (velocity ratio): 0.85 PA V2 max: 133.3 cm/sec ECHO/Echo Complete W/ Contrast Interpretation Summary The study was technically difficult. Mild concentric left ventricular hypertrophy. The LV systolic function is normal. EF is 55 %. Stage 1 diastolic dysfunction. Bubble study appears positive for tiny PFO. Mild (1+) aortic valve insufficiency. Trivial to mild mitral and tricuspid valve insufficiency. Ordering Physician: Harsh Manzo Referring Physician: Deuce Baig Performed By: Gretchen Sauer RDCS
[2024-11-16] MEDS: Losartan Potassium 25 MG Tablet PO ×2 (10:11→21:44)
[2024-11-16] MEDS: Azithromycin 250 MG Tablet 500 MG PO (10:11)
[2024-11-16] MEDS: guaiFENesin/D-Methorphan TAB.SR.12H 2 TABLET PO ×2 (10:11→21:44)
[2024-11-16] MEDS: Metoprolol(XL)Succ 25 MG Tablet 12.5 MG PO (10:12)
[2024-11-16] MEDS: Atorvastatin Calcium 40 MG Tablet PO (10:12)
[2024-11-16 10:15] LABS: Pro- Brain NATRIURETIC PEPTIDE 503 pg/mL (<=1800); Procalcitonin 0.06 ng/mL (<=0.10)
[2024-11-16] MEDS: Isosorbide Mononitrate 30 MG Tablet PO (12:18)
[2024-11-16] MEDS: Enoxaparin 40 MG/0.4 ML Syringe SC (12:18)
[2024-11-16] MEDS: Benzonatate 100 MG Capsule 200 MG PO ×2 (14:14→21:44)
--- NOTE | 2024-11-16 14:15 | CHAPLAIN ---
Type of Pastoral Visit _x__ Initial Visit ___ Follow-up Visit ___ On-call Visit ___ General Patient Visit ___ Spiritual Assessment ___ Family Conference ___ Bereavement ___ Rapid Response ___ Code Blue ___ Other (describe below) Pastoral Care Referral From _x__ Patient ___ Family ___ Nurse ___ Physician ___ Doll Wig Hackler ___ Manager Interventional ___ Other (describe below) Sacrament/Intervention _x__ Active listening ___ Anointing ___ Anabaptist ___ Bereavement ___ Communion ___ Leidy exploration ___ ___ Life review _x__ Prayer ___ Reconciliation ___ Sacrament of Sick _x__ Supportive presence ___ Wedding ___ Other (describe below) Pastoral Comments
--- NOTE | 2024-11-16 14:27 | CASEMGMT ---
Physician notified SW that patient has agreed to hospice. SW met with patient and his significant other. SW introduced self and role at [facility]. Patient confirmed he would like to talk with hospice. SW explained how the process works. Patient would like his significant other to be called for appt. SW called [facility] with referral and also faxed information. Doreen BARNHART
--- NOTE | 2024-11-16 14:46 | CASEMGMT ---
SW received a call from [facility] and they will meet with patient tomorrow at 1330. TIFFANY updated RN and chargeback specialist. Doreen Bose [employer]
--- NOTE | 2024-11-16 21:19 | CPS ---
Patient set up with own PAP machine from home.
[2024-11-16] MEDS: Doxycycline 100 MG CAPSULE PO (21:44)
[2024-11-16] MEDS: Aspirin E.C. 81 MG Tablet PO (21:44)
[2024-11-16] MEDS: Senna/Docusate Sodium 1 Tablet 2 TABLET PO (21:44)
[2024-11-17] VITALS (15 sets, daily range): BP systolic 120–127; BP diastolic 61–93; PULSE 65–98; RESP 16–22; TEMP 36.5–36.7; O2SAT 94–98
--- NOTE | 2024-11-17 01:00 | CPS ---
pt on NIV own unit from home with 6L bleed in
[2024-11-17] MEDS: Piperacil/Tazobactam 3.375 GM in 0.9% Normal Saline (50mL MB+) 50 ML IV ×3 (05:39→21:21)
[2024-11-17] MEDS: Ipratropium/Albuterol Sulfate 3 ML AMPUL.NEB INHALATION ×5 (07:09→23:09)
[2024-11-17] MEDS: Atorvastatin Calcium 40 MG Tablet PO (09:29)
[2024-11-17] MEDS: Losartan Potassium 25 MG Tablet PO ×2 (09:29→20:11)
[2024-11-17] MEDS: Doxycycline 100 MG CAPSULE PO ×2 (09:29→20:11)
[2024-11-17] MEDS: Enoxaparin 40 MG/0.4 ML Syringe SC (09:29)
[2024-11-17] MEDS: Metoprolol(XL)Succ 25 MG Tablet 12.5 MG PO (09:30)
[2024-11-17] MEDS: Senna/Docusate Sodium 1 Tablet 2 TABLET PO ×2 (09:30→20:11)
[2024-11-17] MEDS: guaiFENesin/D-Methorphan TAB.SR.12H 2 TABLET PO ×2 (09:30→20:11)
--- NOTE | 2024-11-17 09:34 | PCM.PN.HOSP ---
Reason for Visit Reason for Visit: Diagnoses Chronic obstructive pulmonary disease with (acute) exacerbation (11/15/24) Acute and chronic respiratory failure with hypoxia (11/15/24) Objective Data Objective Data Vital Signs: Vital Signs Temp Pulse Resp BP Pulse Ox O2 Del Method O2 Flow Rate 97.8 F 90 19 H 127/61 H 94 Nasal Cannula 6 11/17/24 03:40 11/17/24 08:43 11/17/24 08:43 11/17/24 03:40 11/17/24 07:11 11/17/24 08:43 11/17/24 08:43 Oxygen Flow Rate (L/min) 6 Oxygen Delivery Method Nasal Cannula Weight: 180 lb 0.013 oz Body Mass Index (BMI) 26.6 Intake & Output: Intake and Output for Last 24 Hours 11/15/24 11/16/24 11/17/24 23:59 23:59 23:59 Intake Total 450.25 / 450.25 1814 / 1814 235.75 / 235.75 Output Total 250 / 600 750 / 750 Balance 450.25 / 450.25 1564 / 1214 -514.25 / -514.25 Lab / Micro Data 11/16/24 04:27 11/17/24 10:58 Labs: Laboratory Results - last 24 hr 11/16/24 04:27: NT pro BNP II 503, Procalcitonin 0.06 Micro: Microbiology 11/15/24 15:50 Sputum, Expectorated/Coughed Gram Stain - Final 11/15/24 16:40 Mucosa - Nasopharyngeal Respiratory Panel (PCR) - Final 11/15/24 16:40 Mucosa - Nasopharyngeal Coronavirus COVID-19 PCR - Final 11/15/24 15:30 Urine, Clean Catch Legionella Antigen - Final 11/15/24 15:30 Urine, Clean Catch Streptococcus pneumoniae Antigen (M - Final Radiography Diagnostic Testing: Radiology Impression Echocardiogram 11/16/24 09:29 Interpretation Summary The study was technically difficult. Mild concentric left ventricular hypertrophy. The LV systolic function is normal. EF is 55 %. Stage 1 diastolic dysfunction. Bubble study appears positive for tiny PFO. Mild (1+) aortic valve insufficiency. Trivial to mild mitral and tricuspid valve insufficiency. Ordering Physician: Harsh Manzo Referring Physician: Deuce Baig Performed By: Gretchen Sauer, RONEY Physical Exam Narrative Seen and examined. Shortness of breath is slightly better but is still conversational dyspnea. I think that is his baseline. Physical exam General: Alert, Oriented x3, Cooperative HEENT: Moderate hearing loss on hearing aids. Atraumatic, PERRLA, EOMI, Normocephalic. Oral: Oral mucosa dry. No Gingival or Mucosal Lesions/ Ulcerations Neck: Supple, No JVD, Negative Carotid Bruits Chest wall/Lungs: Air entry severely diminished in all lung montes. Dyspnea on minimal exertion. Bilateral expiratory rhonchi. Cardiovascular: Regular rate and rhythm, Normal S1,S2, systolic murmur. CABG Abdomen: Bowel Sounds Present, Soft, Non Tender, Non-Distended : No dysuria. No renal angle tenderness. No suprapubic tenderness. Extremities: No edema, Capillary Refill Less than 3 Seconds Skin: No rashes, No breakdown Musculoskeletal: No Tenderness to Palpation of Joints or Extremities. ROM intact. Neurological: Cranial nerves II-XII grossly intact, DTR 2+/4. No acute focal neurological deficit. Psych/Mental Status: Normal Affect, Appropriate. 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 Acute on chronic hypoxic respiratory failure due to COPD exacerbation: Patient is being admitted in the PCU. Chest CTA shows no signs of pulmonary embolism but groundglass opacities scattered throughout the lower lobes. Bronchiectatic changes along with bronchial thickening primarily in the lower lobes. With bronchiectasis changes lower lobes, started on IV Zosyn and Zithromax. X Ray Control Equipment Repairer consult. Pneumonia workup ordered. ABG 7.4 / on 5 L of oxygen. Start on Airvo as patient is respiratory muscle fatigued and mild going ventilatory failure. Patient is being managed on scheduled bronchodilator, IV Solu-Medrol, Mucinex?DM, Tessalon Perles , incentive spirometry and Pep. 11/16: Pulmonary consult reviewed and appreciated. Patient has end-stage COPD. BNP and procalcitonin unremarkable. Recommended echo. Palliative care was recommended. 11/17: Hospice meeting at 1:30 PM. Further course as per hospice meeting decision 2. Bronchiectasis and end-stage COPD: Chest x-ray and CT images reviewed. 11/16 continue IV Zosyn. Respiratory panel negative. COVID-19 PCR negative. Gram stain shows 4+ WBC, 4+ GNR, 4+ GPR, 1+ GPC. Urinary antigens negative. Azithromycin discontinued. Doxycycline started. 11/17: Continue antibiotic. Full sputum culture is still pending 3. CAD status post CABG: Patient home medications continued. On baby aspirin, Imdur, losartan, metoprolol and rosuvastatin. 11/17: Echo shows EF 55%, mild concentric LVH, stage I diastolic dysfunction and mild AI. Tiny PFO. Trivial to mild MR and TR. 4. Hypertension and dyslipidemia: As mentioned above. Blood pressure in normal range. 5. Chronic tobacco use, patient quit about a year ago 6. DVT prophylaxis high risk: Enoxaparin 40 mL subcu daily. Living will/advanced directive/end of life care: Patient does not living will or advanced directive. His girlfriend who lives for many years is next to kin and present to ED. After discussion of benefits/risks procedures involved with full code, DNR CC arrest and DNR CC, the patient opted for DNR CC arrest with no intubation Patient doesn't want artificial life support including intubation, tube feed, ventilator and/chest compression, and DC shock if needed. Patient is unclear about central line/PICC line or vasopressor if needed. Total time spent in [id number] encounter in discussion of advanced directive 17 minutes. Microbiology Past 72 Hours 11/15/24 15:50 Sputum, Expectorated/Coughed Gram Stain - Final 11/15/24 16:40 Mucosa - Nasopharyngeal Respiratory Panel (PCR) - Final 11/15/24 16:40 Mucosa - Nasopharyngeal Coronavirus COVID-19 PCR - Final 11/15/24 15:30 Urine, Clean Catch Legionella Antigen - Final 11/15/24 15:30 Urine, Clean Catch Streptococcus pneumoniae Antigen (M - Final Laboratory Results 11/17/24 10:58: Sodium 138, Potassium 4.3, Chloride 104, Carbon Dioxide 22.7, Anion Gap 11, BUN 23 H, Creatinine 0.97, Estim Creat Clear Calc 60.74, Est GFR (MDRD) Non-Af 79, BUN/Creatinine Ratio 23.2 H, Glucose 112 H, Lactic Acid 2.0, Calcium 9.0 Echocardiogram 11/16/24 09:29 Interpretation Summary The study was technically difficult. Mild concentric left ventricular hypertrophy. The LV systolic function is normal. EF is 55 %. Stage 1 diastolic dysfunction. Bubble study appears positive for tiny PFO. Mild (1+) aortic valve insufficiency. Trivial to mild mitral and tricuspid valve insufficiency. Clinical Impression(s) from Imaging Studies Chest X-Ray 11/15/24 10:27 IMPRESSION: No active cardiopulmonary disease. Parenchymal scarring and/or subsegmental atelectasis, left lower lobe. Reading Location: [facility] Chest CTA 11/15/24 11:35 IMPRESSION: No signs of pulmonary embolism. Centrilobular emphysematous changes. Ground-glass opacities are scattered throughout the lower lobes. Can not exclude mild inflammation. Bronchiectatic changes along with bronchial thickening primarily in the lower lobes. Reading Location: [facility] Charges/Coding Visit Charges Inpatient E&M: 73247 Subs Hosp L2
--- NOTE | 2024-11-17 10:48 | PCM.PN.TICU ---
Objective Data Objective Data Vital Signs: Vital Signs Last response Temperature 36.7 C 11/17/24 09:47 Temperature Source Temporal 11/17/24 09:47 Pulse Rate 78 11/17/24 09:47 Pulse Strength Weak (1+) 11/17/24 08:43 Respiratory Rate 20 H 11/17/24 09:47 Respiratory Effort Accessory Muscle Use, Pursed Lip 11/17/24 08:43 Respiratory Depth Shallow 11/15/24 10:04 Respiratory Pattern Normal 11/17/24 07:11 Blood Pressure 126/71 H 11/17/24 09:47 Blood Pressure Mean 89 11/17/24 09:47 Blood Pressure Source Monitor 11/17/24 09:47 Blood Pressure Position Semi-Fowlers 11/17/24 09:47 Blood Pressure Location Right Arm 11/17/24 09:47 Pulse Ox 95 11/17/24 09:47 Oxygen Delivery Method Nasal Cannula 11/17/24 09:47 Oxygen Flow Rate (L/min) 6 11/17/24 09:47 I&O: I&O Last 24 Hours 11/16/24 11/16/24 11/17/24 11:59 23:59 11:59 Intake Total 1100 / 1814 714 / 1814 235.75 / 235.75 Output Total 250 / 600 750 / 750 Balance 1100 / 1214 464 / 1214 -514.25 / -514.25 I&O: Total Stay 11/15/24 10:00 thru 11/17/24 06:51 Intake Total 2500.00 Output Total 1000 Balance 1500.00 Current Meds Ordered / Administered: Current meds ordered / Administered Generic Name Dose Route Start Last Admin Trade Name Demetrius PRN Reason Stop Dose Admin Acetaminophen 650 mg 11/15/24 14:59 Acetaminophen 325 Mg Tablet PO Q6H PRN PRN Pain 1-10 Or Fever>100.7 Albuterol/Ipratropium 3 ml 11/15/24 14:30 11/17/24 07:09 Ipratropium/Albuterol Sulfate 3 Ml Ampul.Neb INHALATION 3 ml Q4HWA.RT TALIB Administration Aspirin 81 mg 11/15/24 20:00 11/16/24 21:44 Aspirin E.C. 81 Mg Tablet PO 81 mg DAILY@2000 TALIB Administration Atorvastatin Calcium 40 mg 11/16/24 10:00 11/17/24 09:29 Atorvastatin Calcium 40 Mg Tablet PO 40 mg DAILY TALIB Administration Benzonatate 200 mg 11/15/24 22:00 11/17/24 05:40 Benzonatate 100 Mg Capsule PO Not Given TID [facility] Doxycycline Monohydrate 100 mg 11/16/24 22:00 11/17/24 09:29 Doxycycline 100 Mg Capsule PO 100 mg BID TALIB Administration Enoxaparin Sodium 40 mg 11/15/24 14:59 11/17/24 09:29 Enoxaparin 40 Mg/0.4 Ml Syringe SC 40 mg Q24 TALIB Administration Guaifenesin 2 tablet 11/15/24 14:59 11/17/24 09:30 Guaifenesin/D-Methorphan Tab.Sr.12h PO 2 tablet BID TALIB Administration Piperacillin Sod/Tazobactam 50 mls @ 12.5 mls/hr 11/15/24 14:55 11/17/24 05:39 Sod 3.375 gm/ Sodium Chloride IV 12.5 mls/hr Q8 TALIB Administration Sodium Chloride 250 mls @ 15 mls/hr 11/15/24 15:20 11/17/24 06:51 IV Infused .[id number] PRN Infusion Saline Flush Sodium Chloride 250 mls @ 15 mls/hr 11/15/24 15:20 IV .[id number] PRN Additional IVPB Infusion Isosorbide Mononitrate 30 mg 11/16/24 12:00 11/16/24 12:18 Isosorbide Mononitrate 30 Mg Tablet PO 30 mg DAILY@1200 [facility] Administration Protocol Losartan Potassium 25 mg 11/15/24 22:00 11/17/24 09:29 Losartan Potassium 25 Mg Tablet PO 25 mg BID [facility] Administration Protocol Metoprolol Succinate 12.5 mg 11/16/24 10:00 11/17/24 09:30 Metoprolol(Xl)Succ 25 Mg Tablet PO 12.5 mg DAILY [facility] Administration Protocol Nitroglycerin 0.4 mg 11/15/24 15:11 Nitroglycerin (Inpatient Use) 0.4 Mg Tab.Subl SL Q5M PRN CARDIAC/CHEST PAIN Prednisone 40 mg 11/17/24 12:00 Prednisone 20 Mg Tablet PO BREAKFAST [facility] Psyllium Hydrophilic Mucilloid 1 packet 11/15/24 14:59 Psyllium 1 Packet PO DAILY PRN PRN Constipation Senna/Docusate Sodium 2 tablet 05/08/25 22:00 11/17/24 09:30 Senna/Docusate Sodium 1 Tablet PO 2 tablet BID TALIB Administration Sodium Chloride 10 - 40 ml 11/15/24 15:20 11/15/24 16:21 0.9% Saline Lock 10 Ml Syringe IV 10 ml UD PRN Administration SALINE FLUSH Lab / Micro Data 11/16/24 04:27 11/16/24 04:27 Micro: Microbiology 11/15/24 15:50 Sputum, Expectorated/Coughed Gram Stain - Final Imaging Radiology Impression Echocardiogram 11/16/24 09:29 Interpretation Summary The study was technically difficult. Mild concentric left ventricular hypertrophy. The LV systolic function is normal. EF is 55 %. Stage 1 diastolic dysfunction. Bubble study appears positive for tiny PFO. Mild (1+) aortic valve insufficiency. Trivial to mild mitral and tricuspid valve insufficiency. Ordering Physician: Harsh Manzo Referring Physician: Deuce Baig Performed By: Gretchen Sauer RDCS Assessment and Plan . Assessment and plan: 1. Resp Failure:acute on chronic: Hypoxemic + Chronic: hypercapnic. Etiology of exac not clear. CTA showed subtle GGO. VIRAL wash:-. He at baseline retains CO2. His baseline HCO3 is in the high 20s. Yesterday it was 18. This can obviously make him more sob: Repeat BMP now. Check lactate. Back to baseline of 6L. 2. COPD exac: ? 2/2 viral syndrome. ? related to acid base issue. Continue nebs. Wean steroids to oral: 2 week taper. Excellent a/e on exam. 3. Pneumonia: ?. Subtle GGO. Can de-escalate antibxs soon. 4. Metabolic Acidosis: Repeat BMP, Check Lactic acid 5. FEN: oral diet 6. PX: chemical Critical Care Time:50 minutes The entirety of this encounter was done via Telemedicine Physical Exam Narrative awake, sitting in chair pupils:= o/p:clear CV: RRR Chest: CTA B, excellent a/e Abd :soft, NT, +bs Ext: no c/e/c Skin: no rashes Subjective Subjective feeling better. Close to baseline
--- NOTE | 2024-11-17 11:07 | NURSING ---
contract specialist did Tele visit with pt, discussed labs and listened to lungs- told pt he was ordering more labs to check PCO2 and bicarb
[2024-11-17 11:33] LABS: Anion Gap 11 (5-15); BUN 23 mg/dL (4-19); BUN/Creat Ratio 23.2 RATIO (10-20); Carbon Dioxide 22.7 mmol/L (21.0-32.0); Chloride 104 mmol/L (98-108); Creatinine, Serum 0.97 mg/dL (0.70-1.20); EST Glomerular Filtration Rate 79 (>60); Estimated Creatinine Clearance 60.74 ml/min (50-250); Glucose 112 mg/dL (70-99); Potassium 4.3 mmol/L (3.3-5.1); Sodium Level 138 mmol/L (133-145)
[2024-11-17] MEDS: Isosorbide Mononitrate 30 MG Tablet PO (13:01)
[2024-11-17] MEDS: Benzonatate 100 MG Capsule 200 MG PO ×2 (13:01→20:10)
[2024-11-17] MEDS: predniSONE 20 MG Tablet 40 MG PO (13:01)
[2024-11-17 15:06] LABS: Reflex Lactate? Y
[2024-11-17] MEDS: Aspirin E.C. 81 MG Tablet PO (20:11)
[2024-11-17] MEDS: 0.9% Saline Lock 10 ML Syringe IV (21:21)
[2024-11-18] VITALS (11 sets, daily range): BP systolic 113–136; BP diastolic 64–73; PULSE 65–76; RESP 16–22; TEMP 36–36.6; O2SAT 94–100
[2024-11-18] MEDS: Benzonatate 100 MG Capsule 200 MG PO ×3 (05:07→21:04)
[2024-11-18] MEDS: Piperacil/Tazobactam 3.375 GM in 0.9% Normal Saline (50mL MB+) 50 ML IV (05:08)
[2024-11-18 05:40] LABS: Anion Gap 9 (5-15); BUN 24 mg/dL (4-19); BUN/Creat Ratio 25.3 RATIO (10-20); Calcium,Total 8.5 mg/dL (7.6-11.0); Carbon Dioxide 22.2 mmol/L (21.0-32.0); Chloride 108 mmol/L (98-108); Creatinine, Serum 0.96 mg/dL (0.70-1.20); EST Glomerular Filtration Rate 80 (>60); Estimated Creatinine Clearance 61.37 ml/min (50-250); Glucose 116 mg/dL (70-99); Potassium 3.9 mmol/L (3.3-5.1); Sodium Level 139 mmol/L (133-145)
[2024-11-18 05:44] LABS: Lactic Acid < 1.0 mmol/L (0.0-2.0)
[2024-11-18] MEDS: Ipratropium/Albuterol Sulfate 3 ML AMPUL.NEB INHALATION ×5 (07:43→22:54)
[2024-11-18] MEDS: Enoxaparin 40 MG/0.4 ML Syringe SC (08:22)
[2024-11-18] MEDS: Metoprolol(XL)Succ 25 MG Tablet 12.5 MG PO (08:22)
[2024-11-18] MEDS: Atorvastatin Calcium 40 MG Tablet PO (08:23)
[2024-11-18] MEDS: predniSONE 20 MG Tablet 40 MG PO (08:23)
[2024-11-18] MEDS: Senna/Docusate Sodium 1 Tablet 2 TABLET PO ×2 (08:23→21:05)
[2024-11-18] MEDS: Doxycycline 100 MG CAPSULE PO ×2 (08:24→21:04)
[2024-11-18] MEDS: Losartan Potassium 25 MG Tablet PO ×2 (08:24→21:04)
[2024-11-18] MEDS: guaiFENesin/D-Methorphan TAB.SR.12H 2 TABLET PO ×2 (08:24→21:04)
--- NOTE | 2024-11-18 09:44 | PN.CC_ITS ---
Objective Data Objective Data Vital Signs: Vital Signs Last response 3 Temperature 36.2 C L 11/18/24 08:32 Temperature Source Oral 11/18/24 08:32 Pulse Rate 72 11/18/24 08:32 Pulse Strength Weak (1+) 11/18/24 08:14 Respiratory Rate 19 H 11/18/24 08:32 Respiratory Effort Labored, Accessory Muscle Use, Pursed Lip 11/18/24 08:28 Respiratory Depth Normal 11/18/24 08:28 Respiratory Pattern Normal 11/18/24 08:28 Blood Pressure 136/70 H 11/18/24 08:32 Blood Pressure Mean 92 11/18/24 08:32 Blood Pressure Source Monitor 11/18/24 08:32 Blood Pressure Position Sitting 11/18/24 08:32 Blood Pressure Location Left Arm 11/18/24 08:32 Pulse Ox 96 11/18/24 08:32 Oxygen Delivery Method Nasal Cannula 11/18/24 08:32 Oxygen Flow Rate (L/min) 6 11/18/24 08:32 I&O: I&O Last 24 Hours 3 11/17/24 11/17/24 11/18/24 11:59 23:59 11:59 Intake Total 285.75 / 960.75 675 / 960.75 100 / 100 Output Total 750 / 1550 800 / 1550 Balance -464.25 / -589.25 -125 / -589.25 100 / 100 I&O: Total Stay 3 11/15/24 10:00 thru 11/18/24 09:14 Intake Total 3325.00 Output Total 1800 Balance 1525.00 Current Meds Ordered / Administered: Current meds ordered / Administered 3 Generic Name Dose Route Start Last Admin Trade Name Freq PRN Reason Stop Dose Admin Acetaminophen 650 mg 11/15/24 14:59 Acetaminophen 325 Mg Tablet PO Q6H PRN PRN Pain 1-10 Or Fever>100.7 Albuterol/Ipratropium 3 ml 11/15/24 14:30 11/18/24 07:43 Ipratropium/Albuterol Sulfate 3 Ml Ampul.Neb INHALATION 3 ml Q4HWA.RT TALIB Administration Aspirin 81 mg 11/15/24 20:00 11/17/24 20:11 Aspirin E.C. 81 Mg Tablet PO 81 mg DAILY@2000 TALIB Administration Atorvastatin Calcium 40 mg 11/16/24 10:00 11/18/24 08:23 Atorvastatin Calcium 40 Mg Tablet PO 40 mg DAILY TALIB Administration Benzonatate 200 mg 11/15/24 22:00 11/18/24 05:07 Benzonatate 100 Mg Capsule PO 200 mg TID TALIB Administration Doxycycline Monohydrate 100 mg 11/16/24 22:00 11/18/24 08:24 Doxycycline 100 Mg Capsule PO 100 mg BID TALIB Administration Enoxaparin Sodium 40 mg 11/15/24 14:59 11/18/24 08:22 Enoxaparin 40 Mg/0.4 Ml Syringe SC 40 mg Q24 TALIB Administration Guaifenesin 2 tablet 11/15/24 14:59 11/18/24 08:24 Guaifenesin/D-Methorphan Tab.Sr.12h PO 2 tablet BID TALIB Administration Piperacillin Sod/Tazobactam 50 mls @ 12.5 mls/hr 11/15/24 14:55 11/18/24 09:14 Sod 3.375 gm/ Sodium Chloride IV Infused Q8 ATLIB Infusion Sodium Chloride 250 mls @ 15 mls/hr 11/15/24 15:20 11/17/24 06:51 IV Infused .[id number] PRN Infusion Saline Flush Sodium Chloride 250 mls @ 15 mls/hr 11/15/24 15:20 IV .[id number] PRN Additional IVPB Infusion Isosorbide Mononitrate 30 mg 11/16/24 12:00 11/17/24 13:01 Isosorbide Mononitrate 30 Mg Tablet PO 30 mg DAILY@1200 [facility] Administration Protocol Losartan Potassium 25 mg 11/15/24 22:00 11/18/24 08:24 Losartan Potassium 25 Mg Tablet PO 25 mg BID TALIB Administration Protocol Metoprolol Succinate 12.5 mg 11/16/24 10:00 11/18/24 08:22 Metoprolol(Xl)Succ 25 Mg Tablet PO 12.5 mg DAILY [facility] Administration Protocol Nitroglycerin 0.4 mg 11/15/24 15:11 Nitroglycerin (Inpatient Use) 0.4 Mg Tab.Subl SL Q5M PRN CARDIAC/CHEST PAIN Prednisone 40 mg 11/17/24 12:00 11/18/24 08:23 Prednisone 20 Mg Tablet PO 40 mg BREAKFAST TALIB Administration Psyllium Hydrophilic Mucilloid 1 packet 11/15/24 14:59 Psyllium 1 Packet PO DAILY PRN PRN Constipation Senna/Docusate Sodium 2 tablet 11/15/24 22:00 11/18/24 08:23 Senna/Docusate Sodium 1 Tablet PO 2 tablet BID TALIB Administration Sodium Chloride 10 - 40 ml 11/15/24 15:20 11/17/24 21:21 0.9% Saline Lock 10 Ml Syringe IV 10 ml UD PRN Administration SALINE FLUSH Sodium Chloride 2 spray 11/17/24 23:21 Sodium Chloride 0.65% 1 [place] Lakeside.Btl NASAL TID PRN PRN NASAL DRYNESS Lab / Micro Data 11/16/24 04:27 11/18/24 04:54 Labs: Laboratory Results - last 24 hr 11/17/24 10:58: Sodium 138, Potassium 4.3, Chloride 104, Carbon Dioxide 22.7, Anion Gap 11, BUN 23 H, Creatinine 0.97, Estim Creat Clear Calc 60.74, Est GFR (MDRD) Non-Af 79, BUN/Creatinine Ratio 23.2 H, Glucose 112 H, Lactic Acid 2.0, Calcium 9.0 11/18/24 04:54: Sodium 139, Potassium 3.9, Chloride 108, Carbon Dioxide 22.2, Anion Gap 9, BUN 24 H, Creatinine 0.96, Estim Creat Clear Calc 61.37, Est GFR (MDRD) Non-Af 80, BUN/Creatinine Ratio 25.3 H, Glucose 116 H, Lactic Acid < 1.0, Calcium 8.5 Micro: Microbiology 11/15/24 15:50 Sputum, Expectorated/Coughed Gram Stain - Final 11/15/24 15:50 Sputum, Expectorated/Coughed Respiratory Culture - Preliminary Streptococcus pneumoniae Pseudomonas aeruginosa Assessment and Plan . Assessment and plan: 1. Resp Failure:acute on chronic: Hypoxemic + Chronic: hypercapnic. Etiology of exac not clear. CTA showed subtle GGO. VIRAL wash:-. He at baseline retains CO2. His baseline HCO3 is in the high 20s. 11/16 it was 18. It is better the last 24 hours: 22. Back to baseline of 6L. 2. COPD exac: ? 2/2 viral syndrome. ? related to acid base issue. Continue nebs. Continue oral steroids: 2 week taper. Excellent a/e on exam. 3. Pneumonia: ?. Subtle GGO. Sputum + for pseudomonas and strep pneumoniae. Once again no dense consolidation. Can complete 7 days of antibxs. 4. Metabolic Acidosis: Repeat BMP: HCO3 better-->22, Lactic acid 2.0(11/17) 5. FEN: oral diet 6. PX: chemical Can go home from my perspective. Probable d/c in am Carlos Sanchez MD The entirety of this encounter was done via Telemedicine Physical Exam Narrative awake, Sitting in chair, NAD pupils = o/p:clear CV: RRR Chest: excellent a/e, diminished, no wheezing Abd: soft,NT ExT: no c/e/c Skin: no rashes Subjective Subjective doing well
--- NOTE | 2024-11-18 11:40 | PN.HOSP_ITS ---
Reason for Visit Reason for Visit: Diagnoses Chronic obstructive pulmonary disease with (acute) exacerbation (11/15/24) Acute and chronic respiratory failure with hypoxia (11/15/24) Objective Data Objective Data Vital Signs: Vital Signs Temp Pulse Resp BP Pulse Ox O2 Del Method O2 Flow Rate 97.1 F L 76 20 H 136/70 H 96 Nasal Cannula 6 11/18/24 08:32 11/18/24 11:00 11/18/24 10:46 11/18/24 08:32 11/18/24 08:32 11/18/24 08:32 11/18/24 08:32 Oxygen Flow Rate (L/min) 6 Oxygen Delivery Method Nasal Cannula Weight: 180 lb 0.013 oz Body Mass Index (BMI) 26.6 Intake & Output: Intake and Output for Last 24 Hours 11/16/24 11/17/24 11/18/24 23:59 23:59 23:59 Intake Total 1814 / 1814 960.75 / 960.75 100 / 100 Output Total 250 / 600 1550 / 1550 Balance 1564 / 1214 -589.25 / -589.25 100 / 100 Lab / Micro Data 11/16/24 04:27 11/18/24 04:54 Labs: Laboratory Results - last 24 hr 11/18/24 04:54: Sodium 139, Potassium 3.9, Chloride 108, Carbon Dioxide 22.2, Anion Gap 9, BUN 24 H, Creatinine 0.96, Estim Creat Clear Calc 61.37, Est GFR (MDRD) Non-Af 80, BUN/Creatinine Ratio 25.3 H, Glucose 116 H, Lactic Acid < 1.0, Calcium 8.5 Micro: Microbiology 11/15/24 15:50 Sputum, Expectorated/Coughed Gram Stain - Final 11/15/24 15:50 Sputum, Expectorated/Coughed Respiratory Culture - Preliminary Streptococcus pneumoniae Pseudomonas aeruginosa 11/15/24 16:40 Mucosa - Nasopharyngeal Respiratory Panel (PCR) - Final 11/15/24 16:40 Mucosa - Nasopharyngeal Coronavirus COVID-19 PCR - Final 11/15/24 15:30 Urine, Clean Catch Legionella Antigen - Final 11/15/24 15:30 Urine, Clean Catch Streptococcus pneumoniae Antigen (M - Final Physical Exam Narrative Seen and examined. Hospice meeting was done yesterday. Patient and family accepted for home hospice care. Shortness of breath is slightly better. Sputum culture growing strep pneumoniae and Pseudomonas aeruginosa Physical exam General: Alert, Oriented x3, Cooperative HEENT: Moderate hearing loss on hearing aids. Atraumatic, PERRLA, EOMI, Normocephalic. Oral: Oral mucosa dry. No Gingival or Mucosal Lesions/ Ulcerations Neck: Supple, No JVD, Negative Carotid Bruits Chest wall/Lungs: Air entry severely diminished in all lung montes. Dyspnea on mild exertion. Bilateral expiratory rhonchi. Cardiovascular: Regular rate and rhythm, Normal S1,S2, systolic murmur. CABG Abdomen: Bowel Sounds Present, Soft, Non Tender, Non-Distended : No dysuria. No renal angle tenderness. No suprapubic tenderness. Extremities: No edema, Capillary Refill Less than 3 Seconds Skin: No rashes, No breakdown Musculoskeletal: No Tenderness to Palpation of Joints or Extremities. ROM intact. Neurological: Cranial nerves II-XII grossly intact, DTR 2+/4. No acute focal neurological deficit. Psych/Mental Status: Normal Affect, Appropriate. 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 Acute on chronic hypoxic respiratory failure due to COPD exacerbation: Patient is being admitted in the PCU. Chest CTA shows no signs of pulmonary embolism but groundglass opacities scattered throughout the lower lobes. Bronchiectatic changes along with bronchial thickening primarily in the lower lobes. With bronchiectasis changes lower lobes, started on IV Zosyn and Zithromax. Storage Brine Worker consult. Pneumonia workup ordered. ABG 7.4 on 5 L of oxygen. Start on Airvo as patient is respiratory muscle fatigued and mild going ventilatory failure. Patient is being managed on scheduled bronchodilator, IV Solu-Medrol, Mucinex?DM, Tessalon Perles , incentive spirometry and Pep. 11/16: Pulmonary consult reviewed and appreciated. Patient has end-stage COPD. BNP and procalcitonin unremarkable. Recommended echo. Palliative care was recommended. 11/17: Hospice meeting at 1:30 PM. Further course as per hospice meeting decision 11/18: Patient and family centered home hospice care. Hospice arrangement is being set up at home. Anticipate discharge tomorrow 2. Bilateral pneumonia due to strep pneumoniae and Pseudomonas aeruginosa with history of bronchiectasis and end-stage COPD: Chest x-ray and CT images reviewed. 11/16 continue IV Zosyn. Respiratory panel negative. COVID-19 PCR negative. Gram stain shows 4+ WBC, 4+ GNR, 4+ GPR, 1+ GPC. Urinary antigens negative. Azithromycin discontinued. Doxycycline started. 11/17: Continue antibiotic. Full sputum culture is still pending 11/18: Sputum culture shows Pseudomonas aeruginosa and strep pneumoniae. IV antibiotic broad-spectrum Zosyn changed to IV cefepime. 3. CAD status post CABG: Patient home medications continued. On baby aspirin, Imdur, losartan, metoprolol and rosuvastatin. 11/17: Echo shows EF 55%, mild concentric LVH, stage I diastolic dysfunction and mild AI. Tiny PFO. Trivial to mild MR and TR. 4. Hypertension and dyslipidemia: As mentioned above. Blood pressure in normal range. 5. Chronic tobacco use, patient quit about a year ago 6. DVT prophylaxis high risk: Enoxaparin 40 mL subcu daily. Living will/advanced directive/end of life care: Patient does not living will or advanced directive. His girlfriend who lives for many years is next to kin and present to ED. After discussion of benefits/risks procedures involved with full code, DNR CC arrest and DNR CC, the patient opted for DNR CC arrest with no intubation Patient doesn't want artificial life support including intubation, tube feed, ventilator and/chest compression, and DC shock if needed. Patient is unclear about central line/PICC line or vasopressor if needed. Total time spent in [id number] encounter in discussion of advanced directive 17 minutes. Microbiology Past 72 Hours 11/15/24 15:50 Sputum, Expectorated/Coughed Gram Stain - Final 11/15/24 15:50 Sputum, Expectorated/Coughed Respiratory Culture - Preliminary Streptococcus pneumoniae Pseudomonas aeruginosa 11/15/24 16:40 Mucosa - Nasopharyngeal Respiratory Panel (PCR) - Final 11/15/24 16:40 Mucosa - Nasopharyngeal Coronavirus COVID-19 PCR - Final 11/15/24 15:30 Urine, Clean Catch Legionella Antigen - Final 11/15/24 15:30 Urine, Clean Catch Streptococcus pneumoniae Antigen (M - Final Laboratory Results 11/18/24 04:54: Sodium 139, Potassium 3.9, Chloride 108, Carbon Dioxide 22.2, Anion Gap 9, BUN 24 H, Creatinine 0.96, Estim Creat Clear Calc 61.37, Est GFR (MDRD) Non-Af 80, BUN/Creatinine Ratio 25.3 H, Glucose 116 H, Lactic Acid < 1.0, Calcium 8.5 Echocardiogram 11/16/24 09:29 Interpretation Summary The study was technically difficult. Mild concentric left ventricular hypertrophy. The LV systolic function is normal. EF is 55 %. Stage 1 diastolic dysfunction. Bubble study appears positive for tiny PFO. Mild (1+) aortic valve insufficiency. Trivial to mild mitral and tricuspid valve insufficiency. Clinical Impression(s) from Imaging Studies Chest X-Ray 11/15/24 10:27 IMPRESSION: No active cardiopulmonary disease. Parenchymal scarring and/or subsegmental atelectasis, left lower lobe. Reading Location: [facility] Chest CTA 11/15/24 11:35 IMPRESSION: No signs of pulmonary embolism. Centrilobular emphysematous changes. Ground-glass opacities are scattered throughout the lower lobes. Can not exclude mild inflammation. Bronchiectatic changes along with bronchial thickening primarily in the lower lobes. Reading Location: [facility] Charges/Coding Visit Charges Inpatient E&M: 76178 Subs Hosp L2
[2024-11-18] MEDS: Isosorbide Mononitrate 30 MG Tablet PO (11:55)
[2024-11-18] MEDS: Cefepime HCl 2 GM in 0.9% Normal Saline (100mL MB+) 100 ML IV ×2 (14:18→21:04)
[2024-11-18] MEDS: 0.9% Normal Saline (250mL Bag) 250 ML 15 ML IV (15:12)
[2024-11-18] MEDS: Aspirin E.C. 81 MG Tablet PO (21:04)
[2024-11-19 03:30] VITALS: BP 130/74; PULSE 73; RESP 20; TEMP 36.2; O2SAT 95
[2024-11-19 04:54] LABS: Absolute Lymphocyte Count 2.28 X10^3/uL (0.83-4.51); Basophil# 0.01 X10^3/uL; Basophil% 0.1 % (0-1); Eosinophil# 0.03 X10^3/uL; Eosinophils% 0.2 % (0-5); Hematocrit 36.6 % (40-54); Hemoglobin 11.7 g/dL (13.0-16.5); Lymphocyte # 2.28 X10^3/ul (0.83-4.51); Lymphocyte % 18.5 % (19-41); Mean Corpuscular Hgb 30.9 pg (27.0-32.0); Mean Corpuscular Volume 96.6 fL (80-94); Mean Platelet Vol. 9.2 fl (6.2-12.0); Monocyte% 8.1 % (0-10); NRBC Flagged by Analyzer 0 % (0-5); Neutrophil # 8.96 X10^3/uL (2.7-7.7); Neutrophil % 72.5 % (47-70); Platelet Count 206 K/mm3 (150-450); RBC Distribution Width CV 13.4 % (11.6-14.6); RBC Distribution Width SD 47.7 fl (35.1-43.9); Red Blood Count 3.79 M/mm3 (4.6-6.2); White Blood Count 12.4 K/mm3 (4.4-11.0)
[2024-11-19 05:34] LABS: Anion Gap 9 (5-15); BUN 21 mg/dL (4-19); BUN/Creat Ratio 24.2 RATIO (10-20); Calcium,Total 8.5 mg/dL (7.6-11.0); Carbon Dioxide 24.1 mmol/L (21.0-32.0); Chloride 106 mmol/L (98-108); Creatinine, Serum 0.86 mg/dL (0.70-1.20); EST Glomerular Filtration Rate 88 (>60); Estimated Creatinine Clearance 68.51 ml/min (50-250); Glucose 88 mg/dL (70-99); Potassium 3.8 mmol/L (3.3-5.1); Sodium Level 139 mmol/L (133-145)
[2024-11-19] MEDS: Cefepime HCl 2 GM in 0.9% Normal Saline (100mL MB+) 100 ML IV (06:11)
[2024-11-19] MEDS: Benzonatate 100 MG Capsule 200 MG PO ×2 (06:12→12:21)
[2024-11-19 06:53] VITALS: PULSE 69; RESP 20; O2SAT 93
[2024-11-19] MEDS: Ipratropium/Albuterol Sulfate 3 ML AMPUL.NEB INHALATION ×2 (06:53→10:46)
[2024-11-19 07:00] VITALS: PULSE 72
[2024-11-19] MEDS: guaiFENesin/D-Methorphan TAB.SR.12H 2 TABLET PO (09:03)
[2024-11-19] MEDS: Senna/Docusate Sodium 1 Tablet 2 TABLET PO (09:03)
[2024-11-19] MEDS: predniSONE 20 MG Tablet 40 MG PO (09:03)
[2024-11-19] MEDS: Doxycycline 100 MG CAPSULE PO (09:03)
[2024-11-19 09:04] VITALS: BP 133/72; PULSE 68
[2024-11-19] MEDS: Metoprolol(XL)Succ 25 MG Tablet 12.5 MG PO (09:04)
[2024-11-19] MEDS: Losartan Potassium 25 MG Tablet PO (09:07)
[2024-11-19] MEDS: Atorvastatin Calcium 40 MG Tablet PO (09:07)
[2024-11-19] MEDS: Enoxaparin 40 MG/0.4 ML Syringe SC (09:07)
[2024-11-19 09:09] VITALS: BP 133/72; PULSE 68; RESP 22; TEMP 36.6; O2SAT 98
--- NOTE | 2024-11-19 10:19 | PCM.DC ---
Discharge Instructions Diet Discharge Diet: No restrictions DC O2, CPAP, BIPAP needs Home O2 Discharge instructions: Yes Type of respiratory needs?: Oxygen Oxygen frequency: Continuous Continuous oxygen liters per minute: 6 Dressing / Incision Discharge Activity: Return to Normal Activity Weight Bearing Status: Weight bearing as tolerated Dressing / Incision Call your doctor if you observe: - (Discharged with home hospice care.) Follow Up Care When: IN 2 WEEKS Test Results: Test results from this visit will be discussed in further detail at your follow-up appointment, if applicable. Discharge Plan Admission Admit Date/Time: 11/15/24 13:43 Primary Reason for Your Visit: End-stage COPD, pneumonia bilateral, bronchiectasis Attending Provider: Rohan Henao Primary Care Provider: Deuce Baig Consulting Providers: Jay Cueva; Jermaine Thapa; Ferdinand Shearer; Harsh Manzo; Khai Kaye; Roberto Stark; Tre Cyr; Bette Saez; Carlos Sanchez; Rj Garcia; Jb Cooley; Ginny Brock; Claudine Quezada; Crook,Desiree; Radha,Brian; Irukulla,Tano; Samra,Yonny; Slade Saini; Jakob Gallegos; Laura Sam; Doug Lai; Yusuf Stearns; Alexi Gurrola; Klaus Bardales; Azucena Bethea NP; Ashley Low; Khai Heart; Constanza Shearer; Bhavana Tellez; Jenny Tijerina; Naya Livingston STITCHER OPERATOR; Adrianne Mcqueen Discharge Orders/Prescriptions Prescriptions: New benzonatate 100 mg Capsule 200 mg PO TID PRN (Reason: cough) Qty: 30 0RF dextromethorphan-guaifenesin 60-1,200 mg tablet extended release 12 hr 1 tab PO BID 7 Days Qty: 14 0RF sennosides-docusate sodium [Stimulant Laxative Plus] 8.6-50 mg Tablet 2 tab PO BID Qty: 0 0RF Daily Fiber (psyllium-aspart) 3 gram Powder In Packet 1 packet PO DAILY PRN PRN (Reason: Constipation) Qty: 0 0RF Rx Instructions: [id number]-zoo-puqhexi prednisone 10 mg tablet 10 mg PO DAILY Qty: 30 0RF Rx Instructions: 40 mg for 3 days 30 mg for 3 days, 20 mg for 3 days,and 10 mg for 3 days levofloxacin 500 mg tablet 500 mg PO DAILY 5 Days Qty: 5 0RF Continued nitroglycerin 0.4 mg tablet, sublingual 0.4 mg SUBLINGUAL Q5-15M PRN (Reason: chest pain) Qty: 25 3RF Rx Instructions: until response; do not exceed 3 doses per event (DME) Handicap Placcard See Rx Instructions .ROUTE .MEDSUPPLY Qty: 1 0RF Rx Instructions: Time Duration: 99 months ipratropium-albuterol 0.5 mg-3 mg(2.5 mg base)/3 mL solution for nebulization 3 ml inhalation DAILY losartan 25 mg tablet 25 mg PO BID Qty: 180 4RF isosorbide mononitrate 30 mg tablet extended release 24 hr 30 mg PO DAILY Qty: 90 4RF Rx Instructions: Takes at 1200 albuterol sulfate 90 mcg/actuation HFA aerosol inhaler 2 puff INHALATION Q4H PRN (Reason: shortness of breath or wheezing) Qty: 8.5 3RF Rx Instructions: administer with spacer albuterol sulfate 2.5 mg /3 mL (0.083 %) solution for nebulization 2.5 mg INHALATION Q4H Qty: 180 6RF Brovana 15 mcg/2 mL solution for nebulization 15 mcg INHALATION BID Qty: 120 11RF budesonide 0.5 mg/2 mL suspension for nebulization 0.5 mg INHALATION BID Qty: 120 11RF guaifenesin 1,200 mg tablet extended release 12hr 1,200 mg PO Q12H Qty: 60 6RF aspirin 81 MG tablet 81 mg PO DAILY@2000 metoprolol succinate 25 mg tablet extended release 24 hr 12.5 mg PO DAILY Qty: 45 4RF rosuvastatin 20 mg tablet 20 mg PO DAILY Qty: 90 4RF Held prednisone 10 mg tablet 10 mg PO DAILY Hold Instructions: Hold it whileshe completes prednisone taper dose Referrals / Follow Up: Deuce Baig DO [Primary Care Provider] - Within 2 Weeks (Discharged with home hospice care) Disposition Disposition (needs filled in before D/C Order can be placed): Hospice in Home
--- NOTE | 2024-11-19 10:19 | PCM.DC.SUM ---
Providers Date of Admission: 11/15/24 Date of Discharge: 11/19/24 Primary Care Physician: Dr. Deuce Baig, DO Consultations 11/15/24 14:59 Consult: Emulsion Coater / Pulmonary Medicine Routine Consulting Provider: [facility] Reason for Consult: RESP FAILURE, NEED AIRVO, COPD stage4 EMERGENT Consult: No Notified: Yes Date Notified: 11/15/24 Time Notified: 14:35 Method of Notification: Text 11/16/24 14:11 Consult: Hospice / Palliative Care Routine Consulting Provider: [facility] Reason for Consult: end stage copd, resp failure, Bronchiectasis EMERGENT Consult: No Notified: Yes Date Notified: 11/16/24 Time Notified: 14:12 Method of Notification: Answering Service Reason For Visit: COPD EXA Diagnosis Discharge Diagnosis (1) Acute on chronic hypoxic respiratory failure: Status: Chronic Code(s): J96.21 - Acute and chronic respiratory failure with hypoxia (2) COPD exacerbation: Status: Chronic Code(s): J44.1 - Chronic obstructive pulmonary disease with (acute) exacerbation Plan This 79-year-old gentleman with end-stage COPD is being admitted for COPD exacerbation 1. Acute on chronic hypoxic respiratory failure due to COPD exacerbation: Patient is being admitted in the PCU. Chest CTA shows no signs of pulmonary embolism but groundglass opacities scattered throughout the lower lobes. Bronchiectatic changes along with bronchial thickening primarily in the lower lobes. With bronchiectasis changes lower lobes, started on IV Zosyn and Zithromax. Emulsion Coater consult. Pneumonia workup ordered. ABG 7.4 3/86 on 5 L of oxygen. Start on Airvo as patient is respiratory muscle fatigued and mild going ventilatory failure. Patient is being managed on scheduled bronchodilator, IV Solu-Medrol, Mucinex?DM, Tessalon Perles , incentive spirometry and Pep. 11/16: Pulmonary consult reviewed and appreciated. Patient has end-stage COPD. BNP and procalcitonin unremarkable. Recommended echo. Palliative care was recommended. 11/17: Hospice meeting at 1:30 PM. Further course as per hospice meeting decision 11/18: Patient and family centered home hospice care. Hospice arrangement is being set up at home. Anticipate discharge tomorrow 11/19: Hospice arrangement including oxygen set up at home. Patient is discharged on 5 more days of Levaquin to cover Pseudomonas and strep pneumoniae as per antibiogram, tapering dose of prednisone, Mucinex DM. Machine Cloth Examiner called to inform. Follow-up with PCP and hospice care at home. Patient needs 6 L of oxygen at rest. 2. Bilateral pneumonia due to strep pneumoniae and Pseudomonas aeruginosa with history of bronchiectasis and end-stage COPD: Chest x-ray and CT images reviewed. 11/16 continue IV Zosyn. Respiratory panel negative. COVID-19 PCR negative. Gram stain shows 4+ WBC, 4+ GNR, 4+ GPR, 1+ GPC. Urinary antigens negative. Azithromycin discontinued. Doxycycline started. 11/17: Continue antibiotic. Full sputum culture is still pending 11/18: Sputum culture shows Pseudomonas aeruginosa and strep pneumoniae. IV antibiotic broad-spectrum Zosyn changed to IV cefepime. 3. CAD status post CABG: Patient home medications continued. On baby aspirin, Imdur, losartan, metoprolol and rosuvastatin. 11/17: Echo shows EF 55%, mild concentric LVH, stage I diastolic dysfunction and mild AI. Tiny PFO. Trivial to mild MR and TR. 4. Hypertension and dyslipidemia: As mentioned above. Blood pressure in normal range. 5. Chronic tobacco use, patient quit about a year ago 6. DVT prophylaxis high risk: Enoxaparin 40 mL subcu daily. Discharge medication reconciliation done. Discharge follow-up instructions completed. Discharge process discussed with the patient and all questions were answered to patient's satisfaction. Follow with PCP in 1 to 2 weeks Total time spent, exact 35 minutes on discharge meds reconciliation, examination, coordination of care with nurses and ancillary staff, review of imaging and blood test and discussion with the patient on follow-up instructions. Living will/advanced directive/end of life care: Patient does not living will or advanced directive. His girlfriend who lives for many years is next to kin and present to ED. After discussion of benefits/risks procedures involved with full code, DNR CC arrest and DNR CC, the patient opted for DNR CC arrest with no intubation Patient doesn't want artificial life support including intubation, tube feed, ventilator and/chest compression, and DC shock if needed. Patient is unclear about central line/PICC line or vasopressor if needed. Microbiology Past 72 Hours 11/15/24 15:50 Sputum, Expectorated/Coughed Gram Stain - Final 11/15/24 15:50 Sputum, Expectorated/Coughed Respiratory Culture - Preliminary Streptococcus pneumoniae Pseudomonas aeruginosa 11/15/24 16:40 Mucosa - Nasopharyngeal Respiratory Panel (PCR) - Final 11/15/24 16:40 Mucosa - Nasopharyngeal Coronavirus COVID-19 PCR - Final 11/15/24 15:30 Urine, Clean Catch Legionella Antigen - Final 11/15/24 15:30 Urine, Clean Catch Streptococcus pneumoniae Antigen (M - Final Laboratory Results 11/18/24 04:54: Sodium 139, Potassium 3.9, Chloride 108, Carbon Dioxide 22.2, Anion Gap 9, BUN 24 H, Creatinine 0.96, Estim Creat Clear Calc 61.37, Est GFR (MDRD) Non-Af 80, BUN/Creatinine Ratio 25.3 H, Glucose 116 H, Lactic Acid < 1.0, Calcium 8.5 Echocardiogram 11/16/24 09:29 Interpretation Summary The study was technically difficult. Mild concentric left ventricular hypertrophy. The LV systolic function is normal. EF is 55 %. Stage 1 diastolic dysfunction. Bubble study appears positive for tiny PFO. Mild (1+) aortic valve insufficiency. Trivial to mild mitral and tricuspid valve insufficiency. Clinical Impression(s) from Imaging Studies Chest X-Ray 11/15/24 10:27 IMPRESSION: No active cardiopulmonary disease. Parenchymal scarring and/or subsegmental atelectasis, left lower lobe. Reading Location: [facility] Chest CTA 11/15/24 11:35 IMPRESSION: No signs of pulmonary embolism. Centrilobular emphysematous changes. Ground-glass opacities are scattered throughout the lower lobes. Can not exclude mild inflammation. Bronchiectatic changes along with bronchial thickening primarily in the lower lobes. Reading Location: [facility] Medications at Discharge Home Medications aspirin 81 mg tablet,delayed release 81 mg PO DAILY@1999 [facility] 12/24/19 nitroglycerin 0.4 mg sublingual tablet 0.4 mg sublingual Q5-15M PRN chest pain #25 tabs 03/22/22 Handicap Placcard #1 ea 07/29/22 albuterol sulfate 2.5 mg/3 mL (0.083 %) solution for nebulization 2.5 mg (3 mL) inhalation Q4H #180 mL 08/14/24 albuterol sulfate 90 mcg/actuation aerosol inhaler 2 puff inhalation Q4H PRN shortness of breath or wheezing #8.5 grams 08/14/24 arformoterol 15 mcg/2 mL solution for nebulization (Brovana) 15 mcg (2 mL) inhalation BID #120 mL 08/14/24 budesonide 0.5 mg/2 mL suspension for nebulization 0.5 mg (2 mL) inhalation BID #120 mL 08/14/24 guaifenesin 1,200 mg tablet, extended release 12 hr 1,200 mg PO Q12H #60 tabs 08/14/24 metoprolol succinate 25 mg tablet,extended release 24 hr 12.5 mg (1/2 x 25 mg) PO DAILY #45 TABLETS 08/20/24 rosuvastatin 20 mg tablet 20 mg PO DAILY #90 tabs 08/20/24 ipratropium 0.5 mg-albuterol 3 mg (2.5 mg base)/3 mL nebulization soln 3 ml inhalation DAILY 09/11/24 isosorbide mononitrate 30 mg tablet,extended release 24 hr 30 mg PO DAILY #90 tabs 09/11/24 losartan 25 mg tablet 25 mg PO BID #180 tabs 09/11/24 prednisone 10 mg tablet 10 mg PO DAILY 11/15/24 Held on 11/19/24. Instructions: Hold it whileshe completes prednisone taper dose benzonatate 100 mg capsule 200 mg (2 x 100 mg) PO TID PRN cough #30 caps 11/19/24 dextromethorphan-guaifenesin ER 60 mg-1,200 mg tab,extend release,12hr 1 tab PO BID 7 days #14 tabs 11/19/24 levofloxacin 500 mg tablet 500 mg PO DAILY 5 days #5 tabs 11/19/24 prednisone 10 mg tablet 10 mg PO DAILY #30 tabs 11/19/24 psyllium husk (aspartame) 3 gram oral powder packet (Daily Fiber (psyllium-aspartame)) 1 packet PO DAILY PRN PRN Constipation #0 ea 11/19/24 sennosides 8.6 mg-docusate sodium 50 mg tablet (Stimulant Laxative Plus) 2 tab PO BID #0 tabs 11/19/24 Physical Exam Narrative Seen and examined. Patient feels more comfortable. No dyspnea at rest. Discharged home with hospice care Shortness of breath has improved. Sputum culture growing strep pneumoniae and Pseudomonas aeruginosa Physical exam General: Alert, Oriented x3, Cooperative HEENT: Moderate hearing loss on hearing aids. Atraumatic, PERRLA, EOMI, Normocephalic. Oral: Oral mucosa dry. No Gingival or Mucosal Lesions/ Ulcerations Neck: Supple, No JVD, Negative Carotid Bruits Chest wall/Lungs: Air entry severely diminished in all lung montes. Dyspnea on exertion. Bilateral expiratory rhonchi. Cardiovascular: Regular rate and rhythm, Normal S1,S2, systolic murmur. CABG Abdomen: Bowel Sounds Present, Soft, Non Tender, Non-Distended : No dysuria. No renal angle tenderness. No suprapubic tenderness. Extremities: No edema, Capillary Refill Less than 3 Seconds Skin: No rashes, No breakdown Musculoskeletal: No Tenderness to Palpation of Joints or Extremities. ROM intact. Neurological: Cranial nerves II-XII grossly intact, DTR 2+/4. No acute focal neurological deficit. Psych/Mental Status: Normal Affect, Appropriate. Weight / BMI Weight Weight: 180 lb 0.013 oz Body Mass Index (BMI) 26.6 ABG / Lab / Microbiology Data 11/19/24 04:27 11/19/24 04:27 Laboratory: Laboratory Results - last 24 hr 11/19/24 04:27: WBC 12.4 H, RBC 3.79 L, Hgb 11.7 L, Hct 36.6 L, MCV 96.6 H, MCH 30.9, MCHC 32.0, RDW Std Deviation 47.7 H, RDW Coeff of Crystal 13.4, Plt Count 206, MPV 9.2, Immature Gran % (Auto) 0.600, Neut % (Auto) 72.5 H, Lymph % (Auto) 18.5 L, Dupage % (Auto) 8.1, Eos % (Auto) 0.2, Baso % (Auto) 0.1, Absolute Neuts (auto) 9.0 H, Absolute Lymphs (auto) 2.28, Nucleated RBC % 0, Sodium 139, Potassium 3.8, Chloride 106, Carbon Dioxide 24.1, Anion Gap 9, BUN 21 H, Creatinine 0.86, Estim Creat Clear Calc 68.51, Est GFR (MDRD) Non-Af 88, BUN/Creatinine Ratio 24.2 H, Glucose 88, Calcium 8.5 Microbiology: Microbiology 11/15/24 15:50 Sputum, Expectorated/Coughed Gram Stain - Final 11/15/24 15:50 Sputum, Expectorated/Coughed Respiratory Culture - Final Streptococcus pneumoniae Pseudomonas aeruginosa 11/15/24 16:40 Mucosa - Nasopharyngeal Respiratory Panel (PCR) - Final 11/15/24 16:40 Mucosa - Nasopharyngeal Coronavirus COVID-19 PCR - Final 11/15/24 15:30 Urine, Clean Catch Legionella Antigen - Final 11/15/24 15:30 Urine, Clean Catch Streptococcus pneumoniae Antigen (M - Final D/C Instructions DC O2, CPAP, BIPAP Needs Home O2 Discharge instructions: Yes Type of respiratory needs?: Oxygen Oxygen frequency: Continuous Continuous oxygen liters per minute: 6 DC home with Oxygen: Yes Home O2 MD Review: I have reviewed the oxygen testing, and the patient qualifies for home oxygen equipment and portability. The patient is mobile in the home and the community. Meaningful Use Info Meaningful Use Meaningful Use Diagnoses (Choose all that apply): None applicable Ischemic Stroke Statin Dosing Therapy Reference: STATIN DOSE THERAPY REFERENCE: * Patients > 75 years receive moderate or high dose statin therapy. * Patients 75 years or YOUNGER should receive HIGH intensity statin dose unless contraindicated. You will be required to document reason for non-treatment if statin daily dose does not meet guidelines. HIGH DOSE STATIN THERAPY DAILY Atorvastatin > than or = to 40 mg Rosuvastatin > than or = to 20 mg Amlodipine + Atorvastatin > than or = to 2.5/40 mg Ezetimibe + Simvastatin 10/80 mg Simvastatin 80mg Discharge Plan Admission Admit Date/Time: 11/15/24 13:43 Primary Reason for Your Visit: End-stage COPD, pneumonia bilateral, bronchiectasis Attending Provider: Rohan Henao Primary Care Provider: Deuce Baig Consulting Providers: Jay Cueva; Jermaine Thapa; Ferdinand Shearer; Harsh Manzo; Khai Kaye; Roberto Stark; Tre Cyr; Bette Saez; Carlos Sanchez; Rj Garcia; Jb Cooley; Ginny Brock; Claudine Quezada; Desiree Crook; Radha,Brian; Tano Romero; Yonny Cabrales; Slade Saini; Jakob Gallegos; Laura Sam; Doug Lai; Yusuf Stearns; Alexi Gurrola; Klaus Bardales; Azucena Bethea VP DELIVERY; Ashley Low; Khai Heart; Constanza Shearer; Bhavana Tellez; Jenny Tijerina; Naya Livingston VP DELIVERY; Adrianne Mcqueen Discharge Orders/Prescriptions Prescriptions: New benzonatate 100 mg Capsule 200 mg PO TID PRN (Reason: cough) Qty: 30 0RF dextromethorphan-guaifenesin 60-1,200 mg tablet extended release 12 hr 1 tab PO BID 7 Days Qty: 14 0RF sennosides-docusate sodium [Stimulant Laxative Plus] 8.6-50 mg Tablet 2 tab PO BID Qty: 0 0RF Daily Fiber (psyllium-aspart) 3 gram Powder In Packet 1 packet PO DAILY PRN PRN (Reason: Constipation) Qty: 0 0RF Rx Instructions: Aonx-iho-kzjwexu prednisone 10 mg tablet 10 mg PO DAILY Qty: 30 0RF Rx Instructions: 40 mg for 3 days 30 mg for 3 days, 20 mg for 3 days,and 10 mg for 3 days levofloxacin 500 mg tablet 500 mg PO DAILY 5 Days Qty: 5 0RF Continued nitroglycerin 0.4 mg tablet, sublingual 0.4 mg SUBLINGUAL Q5-15M PRN (Reason: chest pain) Qty: 25 3RF Rx Instructions: until response; do not exceed 3 doses per event (DME) Handicap Placcard See Rx Instructions .ROUTE .MEDSUPPLY Qty: 1 0RF Rx Instructions: Time Duration: 99 months ipratropium-albuterol 0.5 mg-3 mg(2.5 mg base)/3 mL solution for nebulization 3 ml inhalation DAILY losartan 25 mg tablet 25 mg PO BID Qty: 180 4RF isosorbide mononitrate 30 mg tablet extended release 24 hr 30 mg PO DAILY Qty: 90 4RF Rx Instructions: Takes at 1200 albuterol sulfate 90 mcg/actuation HFA aerosol inhaler 2 puff INHALATION Q4H PRN (Reason: shortness of breath or wheezing) Qty: 8.5 3RF Rx Instructions: administer with spacer albuterol sulfate 2.5 mg /3 mL (0.083 %) solution for nebulization 2.5 mg INHALATION Q4H Qty: 180 6RF Brovana 15 mcg/2 mL solution for nebulization 15 mcg INHALATION BID Qty: 120 11RF budesonide 0.5 mg/2 mL suspension for nebulization 0.5 mg INHALATION BID Qty: 120 11RF guaifenesin 1,200 mg tablet extended release 12hr 1,200 mg PO Q12H Qty: 60 6RF aspirin 81 MG tablet 81 mg PO DAILY@2000 metoprolol succinate 25 mg tablet extended release 24 hr 12.5 mg PO DAILY Qty: 45 4RF rosuvastatin 20 mg tablet 20 mg PO DAILY Qty: 90 4RF Held prednisone 10 mg tablet 10 mg PO DAILY Hold Instructions: Hold it whileshe completes prednisone taper dose Referrals / Follow Up: Deuce Baig DO [Primary Care Provider] - Within 2 Weeks (Discharged with home hospice care) Disposition Disposition (needs filled in before D/C Order can be placed): Hospice in Home Charges/Coding Visit Charges Inpatient E&M: 70328 Disch Hosp >30min
[2024-11-19 10:46] VITALS: PULSE 71; RESP 16
[2024-11-19] MEDS: Isosorbide Mononitrate 30 MG Tablet PO (12:20)
--- NOTE | 2024-11-19 13:15 | NURSING ---
Pt and given discharge instructions including medications, follow up appointments and all other discharge instructions. pt and deny any further questions or needs at this time. Telemetry removed and placed at nurses station. iv removed with catheter intact, clean dry dressing applied, pt tolerated well. pt waiting on medications from the pharmacy then will be wheeled out to wifes waiting vehicle.
== END 2024-11-19 14:21 | disposition hospice, home (50) | DRG 190 ==
LOC: ED 11:32 → PCU 11-16 09:37 → MS3 11-19 10:11 → PCU 11-19 10:11
PROVIDERS: Internal Medicine Critical Care Medicine; Admitting Provider Internal Medicine; Emergency Provider Emergency Medicine; PCP Family Medicine; Visit Provider Internal Medicine
DX: J44.1 Chronic obstructive pulmonary disease with (acute) exacerbation (principal); J96.21 Acute and chronic respiratory failure with hypoxia; J15.1 Pneumonia due to Pseudomonas; J96.22 Acute and chronic respiratory failure with hypercapnia; J13 Pneumonia due to Streptococcus pneumoniae; J47.0 Bronchiectasis with acute lower respiratory infection; E87.20 Acidosis, unspecified; B96.5 Pseudomonas (aeruginosa) (mallei) (pseudomallei) as the cause of diseases classified elsewhere; Z66 Do not resuscitate; I10 Essential (primary) hypertension; J47.9 Bronchiectasis, uncomplicated; E78.5 Hyperlipidemia, unspecified; I25.10 Atherosclerotic heart disease of native coronary artery without angina pectoris; I25.2 Old myocardial infarction; Z87.891 Personal history of nicotine dependence; Z79.51 Long term (current) use of inhaled steroids; Z99.81 Dependence on supplemental oxygen; Z79.82 Long term (current) use of aspirin; Z79.899 Other long term (current) drug therapy; Z98.52 Vasectomy status; Z98.61 Coronary angioplasty status
CPT/HCPCS: 36415; 36600; 71046; 71275; 80048; 82803; 83605; 83735; 83880; 84145; 84484; 85025; 85379; 87070; 87077; 87184; 87186; 87205; 87449; 87633; 87635; 93005; 93306; 94640; 94668; 94762; 97161; 99285; Q9957; Q9967; A4216; C8929

== ENCOUNTER 2025-01-20 23:16 | Inpatient (IN) | payer MEDICARE, OTHER, SELFPAY ==
[2025-01-20 23:17] VITALS: BP 106/58; PULSE 110; RESP 26; TEMP 38.2; O2SAT 92
[2025-01-21] VITALS (20 sets, daily range): BP systolic 101–158; BP diastolic 56–91; PULSE 71–102; RESP 12–30; TEMP 36.8–37.7; O2SAT 92–99; BMI 27.5; BMI 28.3
[2025-01-21 00:26] LABS: Mucous, Urine 0 SEEN /hpf (<or=2+); Red Blood Cells-Urine 0 SEEN /hpf (0-5)
[2025-01-21] MEDS: 0.9% Normal Saline (1000mL) 1,000 ML 999 ML IV ×3 (00:35→06:46)
[2025-01-21 00:36] LABS: Color, Urine Yellow (Yellow); Glucose, Dipstick Normal (Normal); Ketone-Dipstick 5 mg/dl (Negative); Leukocyte Esterase-Dipstick 500 /ul (Negative); Nitrite-Dipstick Negative (Negative); Occult Blood-Urine 25 /ul (Negative); Protein-Dipstick 30 mg/dl (Negative); Specific Gravity, Urine 1.015 (1.002-1.030)
[2025-01-21 00:40] LABS: Hematocrit 37.8 % (40-54); Hemoglobin 12.5 g/dL (13.0-16.5); Immature Granulocytes Count 0.250 X10^3/uL (0.0-0.0); Mean Corp Hgb Conc 33.1 g/dL (32-36); Mean Corpuscular Volume 98.2 fL (80-94); Mean Platelet Vol. 9.3 fl (6.2-12.0); NRBC Flagged by Analyzer 0 % (0-5); POSITIVE DIFFERENTIAL YES; Platelet Count 267 K/mm3 (150-450); RBC Distribution Width CV 13.5 % (11.6-14.6); RBC Distribution Width SD 48.7 fl (35.1-43.9); Red Blood Count 3.85 M/mm3 (4.6-6.2); White Blood Count 25.3 K/mm3 (4.4-11.0)
[2025-01-21 00:41] LABS: Urine Bilirubin Dipstick 1 mg/dL (Negative)
[2025-01-21 00:50] LABS: Squamous Epithelial Cells - UA 0-5 SEEN /hpf (0-5)
[2025-01-21 01:09] LABS: Anion Gap 14 (5-15); BUN 17 mg/dL (4-19); BUN/Creat Ratio 15.2 RATIO (10-20); Calcium,Total 8.8 mg/dL (7.6-11.0); Carbon Dioxide 25.8 mmol/L (21.0-32.0); Chloride 98 mmol/L (98-108); Estimated Creatinine Clearance 51.68 ml/min (50-250); Glucose 106 mg/dL (70-99); Potassium 3.8 mmol/L (3.3-5.1)
--- OUTSIDE RECORDS SUMMARY | 2025-01-21 01:11 | XMS RPT_ITS | CCD ---
Author Organization [facility] Care Team Providers Care Marketing Project Lead Name Role Phone FERNANDEZ BAIG DO Primary Care Physician Dr. Fernandez Baig Primary Care Provider Dr. Fernandez Baig Referring Provider Dr. Harsh Manzo Attending Provider Shahab MAE, CARMELITA Mcghee Attending Provider FERNANDEZ BAIG DO Attending Unavailable FERNANDEZ BAIG DO Primary Care Unavailable FERNANDEZ BAIG DO Attending Unavailable FERNANDEZ BAIG DO Primary Care Unavailable Dr. Fernandez Baig Primary Care Provider Dr. Fernandez Baig Referring Provider Neema DUNCAN PARTS IDENTIFICATION TECHNICIAN-C Azucena Attending Provider Dr. Wilberto Tillman Attending Provider Unavailable Primary Care Provider Unavailabl e FERNANDEZ BAIG DO Attending Unavailable FERNANDEZ BAIG DO Primary Care Unavailable FERNANDEZ BAIG DO Attending Unavailable FERNANDEZ BAIG DO Primary Care Unavailable ANASTASIYA FINK Attending Unavailable ANASTASIYA FINK Attending Unavailable ANASTASIYA FINK Attending Unavailable SELF Referring Unavailable Dr. Fernandez Baig DO Primary Care Provider [phone] Dr. Fernandez Baig DO Referring Provider Azucena Chacon Attending Provider Yung Feliz Attending Provider Dr. Beau Costa DO Emergency Provider Dr. Rohan Henao MD Admit Provider Juliano BAGLEY, Dr. Madrigal Attending Provider [phone] Anay BAGLEY, Dr. Thompson Other Provider Alanis BAGLEY, Dr. Dean Other Provider Manfred BAGLEY, Dr. Streeter Other Provider Jovany RUTH, Dr. House Other Provider Vargas BAGLEY, Dr. Khai Shelton Other Provider [phone] Lincoln BAGLEY, Dr. Mejia Other Provider [phone] Klarissa BAGLEY, Dr. Toledo Other Provider [phone] Se BAGLEY, Dr. Amos Other Provider [phone] Laura BAGLEY, Dr. Gonzalez Other Provider Jose BAGLEY, Dr. De La Rosa Other Provider [phone] Yasir BAGLEY, Dr. Muhammad Other Provider [phone] Vinod BAGLEY, Dr. Gross Other Provider Damien BAGLEY, Dr. Chow Other Provider Unavailabl jacob Crook MD, Dr. Ramírez Other Provider Radha BAGLEY, Dr. Torres Other Provider Nick BAGLEY, Dr. Freedman Other Provider [phone] Samra BAGLEY, Dr. Blancas Other Provider [phone] Yeny RUTH, Dr. June Other Provider Rosy BAGLEY, Dr. Robert Other Provider [phone] Cecy BAGLEY, Dr. Sanchez Other Provider [phone] Doug Lai DO Other Provider Dr. Yusuf Stearns MD Other Provider Tay Gurrola MD, Dr. Truong Other Provider Jeffy BAGLEY, Dr. Enrique Other Provider Neema PARTS IDENTIFICATION TECHNICIAN-C, Azucena Other Provider Devante PARTS IDENTIFICATION TECHNICIAN-C, Mathew Mcghee Other Provider Juliano BAGLEY, Dr. Madrigal Other Provider Sly RUTH, Dr. Khai Monroe Other Provider Manfred BAGLEY, Dr. Apodaca Other Provider Geoff BAGLEY, Dr. Bateman Other Provider Lilliana PARTS IDENTIFICATION TECHNICIAN-C, Jenny Other Provider Unavailabl e Miki PARTS IDENTIFICATION TECHNICIAN-C, Naya Other Provider [phone] Masci PA, Adrianne Other Provider Jovany RUTH, Dr. House Attending Provider Yosvany BAGLEY, Dr. Bishop Attending Provider Neema PARTS IDENTIFICATION TECHNICIAN, Azucena Attending Unavailable Jovanni, Fernandez Referring Unavailable Jovanni, Fernandez Primary Care Unavailable Neema DUNCAN, Azucena Attending Unavailable Jovanni, Fernandez Referring Unavailable Jovanni, Fernandez Primary Care Unavailable Dario Bar Attending Unavailable Jovanni, Fernandez Primary Care Unavailable Jovanni, Fernandez Primary Care Unavailable Korin Henaosh Admitting Unavailable Jay Cueva Consulting Unavailable Rohan Henao Attending Unavailable Jermaine Thapa Consulting Unavailable Ferdinand Shearer Consulting Unavailable Harsh Manzo Consulting Unavailable Khai Kaye Consulting Unavailable Roberto Stark Consulting Unavailable Tre Cyr Consulting Unavailable Bette Saez Consulting UnavailCarlos Kapoor Consulting Unavailable Rj Garcia Consulting Unavailable Jb Cooley Consulting Unavailable Ginny Brock Consulting Unavailable AlClaudine moreno Consulting Unavailable Crook, Desiree Consulting Unavailable Radha, Brian Consulting Unavailable Tano Romero Consulting Unavailable Samra, Yonny Consulting Unavailable Dhesi, Slade Consulting Unavailable Jakob Gallegos Consulting Unavailable Laura Sam Consulting Unavailable Doug Lai Consulting Unavailable Yusuf Stearns Consulting Unavailable Alexi Gurrola Consulting Unavailable Klaus Bardales Consulting Unavailable Azucena Bethea NP Consulting Unavailable Mathew Low Consulting Unavailable Juliano, Rohan Consulting Unavailable Harsh Manzo Attending Unavailable Juliano Rohan Referring Unavailable Khai Heart Consulting Unavailable Constanza Shearer Consulting Unavailable Bhavana Tellez Consulting Unavailable Jenny Tijerina Consulting Unavailable Miki DUNCAN, Naya Consulting Unavailable Masci, Adrianne Consulting Unavailable Fernandez Baig Primary Care Unavailable Rohan Henao Admitting Unavailable Jay Cueva Consulting Unavailable Rohan Henao Attending Unavailable Jermaine Thapa Consulting Unavailable Ferdinand Shearer Consulting Unavailable Harsh Manzo Consulting Unavailable Khai Kaye Consulting Unavailable Roberto Stark Consulting Unavailable Tre Cyr Consulting Unavailable eBtte Saez Consulting UnavailCarlos Kapoor Consulting Unavailable Rj Garcia Consulting Unavailable Jb Cooley Consulting Unavailable Ginny Brock Consulting Unavailable Claudine Quezada Consulting Unavailable Desiree Crook Consulting Unavailable Brian Garcia Consulting Unavailable Tano Romero Consulting Unavailable Yonny Cabrales Consulting Unavailable Slade Saini Consulting Unavailable Jakob Gallegos Consulting Unavailable Laura Sam Consulting Unavailable Doug Lai Consulting Unavailable Yusuf Stearns Consulting Unavailable Alexi Gurrola Consulting Unavailable Klaus Bardales Consulting Unavailable Azucena Bethea NP Consulting Unavailable Mathew Low Consulting Unavailable Khai Heart Consulting Unavailable Constanza Shearer Consulting Unavailable Bhavana Tellez Consulting Unavailable Jenny Tijerina Consulting Unavailable Naya Livinsgton NP Consulting Unavailable Charisse, Adrianne Consulting Unavailable Fernandez Baig Referring Unavailable Fernandez Baig Primary Care Unavailable Azucena Bethea NP Attending Unavailable Fernandez Baig Referring Unavailable Fernandez Baig Primary Care Unavailable Yung Huntley NP Attending Unavailable Allergies Allergy Classification Reported Allergen(s) Allergy Type Date of Onset Reaction(s) Facility (5 sources) tiotropium; Translations: [tiotropium] Drug Allergy 2 Unknown (qualifier value) [facility] (1 source) VITAMIN B12 INJECTION Propensity to adverse reactions 1 BLURRED VISION AND HOT FLASH [facility] Work Phone: (3 sources) vitamin B12 Drug Allergy 4 Other [facility] Comment on above: BLURRED VISION AND H OT FLASHES (1 source) tiotropium Drug Allergy 5 [facility] Repository (1 source) vitamin B12 Drug Allergy 5 [facility] Medications Current Medications Medication Drug Class(es) Dates Sig (Normalized) Sig (Original) albuterol 0.833 mg/ml / ipratropium bromide 0.167 mg/ml inhalation solution (20 sources) Anticholinergic, beta2-Adrenergic Agonist Start: 09-11-2024 take 1 mL by inhalation once daily Ipratropium-Albuter ol 0.5 mg-3 mg(2.5 mg base)/3 mL solution for nebulization Active 3 mL INHALATION DAILY September 11, 2024 11:46am Start: 11-03-2021 End: 09-11-2024 take 1 mL by inhalation every six hours as needed for wheezing Ipratropium-Albuterol 0.5 mg-3 mg(2.5 mg base)/3 mL solution for nebulization Discontinued 3 mL INHALATION EVERY 6 HOURS as needed for shortness of breath or wheezing October 07, 2022 1:03pm August 14, 2024 11:07am Start: 11-03-2021 End: 10-07-2022 take 1 mL by inhalation every six hours Ipratropium-Albuterol Active 3 ML INHALATION EVERY 6 HOURS October 07, 2022 1:03pm Start: 01-17-2019 End: 03-22-2022 take 1 mL by inhalation four times daily Ipratropium-Albuterol 0.5 mg-3 mg(2.5 mg base)/3 mL solution for nebulization Discontinued 3 mL INHALATION .QID 360 January 17, 2019 5:40am March 22, 2022 10:25am COPD J44.9 Start: 01-17-2019 End: 03-22-2022 take 1 mL by inhalation four times daily Ipratropium-Albuterol Discontinued 3 ML INHALATION .QID 360 January 17, 2019 5:40am March 22, 2022 10:25am COPD J44.9 Start: 12-05-2018 take 1 dose by inhal ation every four hours for chronic obstructive pulmonary disease DuoNeb 0.5 mg - 2.5 mg/3 mL inhalation soln USE 1 VIAL IN NEBULIZER EVERY 4 HOURS FOR COPD Start Date: 12/05/18 Status: Ordered Start: 10-11-2018 End: 01-17-2019 take 1 mL by inhalation every four hours Ipratropium-Albuterol 0.5 mg-3 mg(2.5 mg base)/3 mL solution for nebulization Discontinued 3 mL INHALATION Q4H 360 November 01, 2018 3:46pm January 17, 2019 5:40am COPD J44.9 Start: 10-11-2018 End: 01-17-2019 take 1 mL by inhalation every four hours Ipratropium-Albuterol Discontinued 3 ML INHALATION Q4H 360 November 01, 2018 3:46pm January 17, 2019 5:40am COPD J44.9 Start: 03-29-2016 End: 10-10-2017 Ipratropium-Albuterol 1 PUFF inhaler Discontinued 1 NMA INHALATION 4 TIMES DAILY NEEDED as needed for COPD March 29, 2016 12:00am October 10, 2017 2:34pm Start: 03-29-2016 End: 10-10-2017 take 1 puff(s) by inhalation four times daily as needed Ipratropium-Albuterol Discontinued 1 PUFF INHALATION 4 TIMES DAILY NEEDED March 29, 2016 2:32pm October 10, 2017 2:34pm Arformoterol (Brovana) 15 mcg/2 mL solution for nebulization (2 sources) Start: 08-14-2024 Arformoterol (Brovana) 15 mcg/2 mL solution for nebulization Active 15 ug INHALATION TWICE A DAY August 14, 2024 11:03am aspirin 81 mg delayed release oral tablet (8 sources) Platelet Aggregation Inhibitor, Nonsteroidal Anti-inflammatory Drug Start: 12-24-2019 take 1 tablet by mouth once daily Aspirin 81 MG tablet Active 81 mg PO DAILY@1999December 24, 2019 12:00am Start: 03-29-2016 End: 06-29-2017 take 1 tablet by mouth once daily Aspirin 325 MG tablet Discontinued 325 mg PO DAILY@0800 March 29, 2016 12:00am June 29, 2017 3:40pm benzonatate 100 mg oral capsule (1 source) Non-narcotic Antitussive Start: 11-19-2024 take 2 capsules by mouth three times daily as needed for cough Benzonatate 100 mg Capsule Active 200 mg PO THREE TIMES A DAY as needed for cough November 19, 2024 12:15pm budesonide 0.25 mg/ml inhalation suspension (20 sources) Corticosteroid Start: 10-15-2022 End: 08-14-2024 take 0.5 mg by inhalation twice daily Budesonide 0.5 mg/2 mL suspension for nebulization Active 0.5 mg INHALATION TWICE A DAY 120 August 14, 2024 11:03am Start: 03-02-2019 take 1 dose by inhal ation once daily budesonide 0.5 mg/2 mL inhalation suspension Dose : 0.5 mg = 2 mL, Inhalation, qDay, # 60 mL, 0 Refill(s) Start Date: 03/02/19 Status: Ordered Start: 01-17-2019 End: 10-15-2022 take 0.5 mg by inhalation once daily Budesonide 0.5 mg/2 mL suspension for nebulization Discontinued 0.5 mg INHALATION DAILY 120 October 07, 2022 1:03pm October 15, 2022 10:03am Start: 10-11-2018 End: 11-20-2018 take 1 mL by inhalation twice daily Budesonide 0.5 mg/2 mL suspension for nebulization Discontinued 2 mL INHALATION TWICE A DAY 120 October 11, 2018 12:00am November 20, 2018 3:27pm Start: 10-11-2018 End: 11-20-2018 take 1 mL by inhalation twice daily Budesonide Discontinued 2 ML INHALATION TWICE A DAY 120 October 11, 2018 11:16am November 20, 2018 3:27pm 12 hr dextromethorphan hydrobromide 60 mg / guaiFENesin 1200 mg extended release oral tablet (1 source) Uncompetitive F-vuorii-T-aspartate Receptor Antagonist, Sigma-1 Agonist Start: 11-19-2024 Dextromethorphan-Guaifenesin 60-1,200 mg tablet extended release 12 hr Active 1 {tbl} PO TWICE A DAY 14 7 November 19, 2024 12:00am docusate sodium 50 mg / sennosides, residential 8.6 mg oral tablet (1 source) Start: 11-19-2024 Sennosides-Docusate Sodium (Stimulant Laxative Plus) 8.6-50 mg Tablet Active 2 {tbl} PO TWICE A DAY 0 November 19, 2024 12:00am 12 hr guaiFENesin 1200 mg extended release oral tablet (2 sources) Start: 08-14-2024 take 1 tablet by mouth every twelve hours Guaifenesin 1,200 mg tablet extended release 12hr Active 1200 mg PO Q12H 60 August 14, 2024 1:00am Handicap Placcard (3 sources) Start: 07-29-2022 Handicap Placcard Active 0 .ROUTE .MEDSUPPLY July 29, 2022 1:00am Time Duration: 99 months levoFLOXacin 500 mg oral tablet (5 sources) Quinolone Antimicrobial Start: 11-19-2024 take 1 tablet by mouth once daily Levofloxacin 500 mg tablet Active 500 mg PO DAILY 11 12November 19, 2024 12:00am Start: 12-25-2019 End: 02-11-2020 take 1 tablet by mouth once daily Levofloxacin 750 MG tablet Discontinued 750 mg PO DAILY December 25, 2019 12:00am February 11, 2020 2:10pm predniSONE 10 mg oral tablet (9 sources) Start: 11-19-2024 Prednisone 10 mg tablet Active 10 mg PO DAILY November 19, 2024 12:00am 40 mg for 3 days 30 mg for 3 days, 20 mg for 3 days,and 10 mg for 3 days Start: 09-12-2024 End: 11-15-2024 take 1 tablet by mouth once daily Prednisone 10 mg tablet Active 10 mg PO DAILY November 15, 2024 12:00am On Hold: Hold it whileshe completes prednisone taper dose Start: 12-25-2019 End: 02-07-2020 take 2 tablets by mouth once daily Prednisone 20 MG tablet Discontinued 40 mg PO DAILY December 25, 2019 12:00am February 07, 2020 1:10pm Start: 12-25-2019 End: 02-07-2020 take 40 mg by mouth once daily Prednisone Discontinued 40 MG PO DAILY December 25, 2019 9:17am February 07, 2020 1:10pm Proctosol-HC 2.5% topical cr eam (1 source) Start: 06-13-2020 Proctosol-HC 2 .5% topical cream See Instructions, Topical BID, # 30 gram(s), 2 Refill(s), Pharmacy: [facility]/pharmacy #[id number], 177, cm, 06/13/20 11:13:00 EST, Height, kg, 06/13/20 11:13:00 EST, Dosing Weight Start Date: 06/13/20 Status: Ordered Psyllium Husk (Aspartame) (Daily Fiber (Psyllium-Aspart)) 3 gram Powder In Packet (1 source) Start: 11-19-2024 Psyllium Husk (Aspartame) (Daily Fiber (Psyllium-Aspart)) 3 gram Powder In Packet Active 1 NMA PO DAILY NEEDED as needed for Constipation 0 November 19, 2024 12:00am [id number] Completed/Discontinued Medications Medication Drug Class(es) Dates Sig (Normalized) Sig (Original) acetaminophen 500 mg oral capsule (4 sources) Start: 10-25-2019 End: 11-15-2024 take 500-1000 mg by mouth once daily as needed for pain Acetaminophen 500 mg capsule Discontinued 500 - 1000 mg PO DAILY NEEDED as needed for Pain Or Fever October 25, 2019 12:00am November 15, 2024 11:32am acetaminophen 325 mg / oxyCODONE hydrochloride 5 mg oral tablet (4 sources) Opioid Agonist Start: 04-06-2016 End: 02-07-2018 Oxycodone-Acetamino phen 1 TABLET tablet Discontinued 1 {tbl} PO EVERY 6 HOURS NEEDED as needed for Pain April 06, 2016 12:00am February 07, 2018 9:25am Start: 04-06-2016 End: 02-07-2018 take 1 tablet by mouth every six hours as needed Oxycodone-Acetaminophen Discontinued 1 TABLET PO EVERY 6 HOURS NEEDED April 06, 2016 1:39pm February 07, 2018 9:25am [id number] 200 actuat albuterol 0.09 mg/actuat metered dose inhaler (20 sources) beta2-Adrenergic Agonist Start: 10-22-2020 End: 08-14-2024 Albuterol Sulfate 90 mcg/actuation HFA aerosol inhaler Active 2 NMA INHALATION Q4H as needed for shortness of breath or wheezing 8.5 August 14, 2024 11:01am administer with spacer Start: 10-22-2020 End: 08-14-2024 take 2.5 mg by inhalation every four hours as needed for wheezing Albuterol Sulfate 2.5 mg /3 mL (0.083 %) solution for nebulization Discontinued 2.5 mg INHALATION Q4H as needed for shortness of breath or wheezing 180 May 06, 2022 1:30pm August 14, 2024 11:07am Start: 10-22-2020 End: 10-22-2020 Albuterol Sulfate 90 mcg/act uation HFA aerosol inhaler Discontinued 1 NMA INHALATION ONCE as needed for shortness of breath or wheezing October 22, 2020 12:00am October 22, 2020 1:16pm Start: 10-22-2020 End: 07-28-2022 Albuterol Sulfate 90 mcg/act uation HFA aerosol inhaler Discontinued 2 NMA INHALATION EVERY 6 HOURS as needed for shortness of breath or wheezing 8.5 May 06, 2022 1:30pm July 28, 2022 2:11pm Start: 10-22-2020 End: 07-28-2022 take 1 puff(s) by inhalation every six hours Albuterol Sulfate Discontinued 2 PUFF INHALATION EVERY 6 HOURS 8.5 May 06, 2022 1:30pm July 28, 2022 2:11pm Start: 10-22-2020 End: 10-22-2020 Albuterol Sulfate Discontinu ed 1 INH INHALATION ONCE October 22, 2020 1:15pm October 22, 2020 1:16pm Start: 10-22-2020 take 1 puff(s) by in halation every four hours Albuterol Sulfate Active 2 PUFF INHALATION Q4H 8.5 October 22, 2020 1:52pm administer with spacer Start: 03-02-2019 take 2 puff(s) by in halation every four hours as needed for wheezing Ventolin HFA MDI (90 mcg/inh) inhalation aerosol INHALE 2 PUFFS EVERY 4 HOURS NEEDED FOR SHORTNESS OF BREATH OR WHEEZING Start Date: 03/02/19 Status: Ordered Start: 01-16-2019 End: 05-12-2020 Albuterol Sulfate (Ventolin Hfa) 90 mcg/actuation HFA aerosol inhaler Discontinued 2 NMA INHALATION Q4H as needed for shortness of breath or wheezing 1 October 25, 2019 9:00am May 12, 2020 9:35am Start: 01-16-2019 End: 05-12-2020 take 1 puff(s) by inhalation every four hours Albuterol Sulfate (Ventolin Hfa) 90 mcg/actuation HFA aerosol inhaler Discontinued 2 PUFF INHALATION Q4H 1 October 25, 2019 9:00am May 12, 2020 9:35am Start: 10-11-2017 End: 01-16-2019 Albuterol Sulfate (Ventolin Hfa) 90 mcg/actuation HFA aerosol inhaler Discontinued 2 NMA INHALATION EVERY 6 HOURS as needed for shortness of breath or wheezing October 11, 2017 7:45am January 16, 2019 8:28am Start: 10-11-2017 End: 01-16-2019 take 1 puff(s) by inhalation every six hours Albuterol Sulfate (Ventolin Hfa) 90 mcg/actuation HFA aerosol inhaler Discontinued 2 PUFF INHALATION EVERY 6 HOURS October 11, 2017 7:45am January 16, 2019 8:28am Start: 10-10-2017 End: 10-11-2017 Albuterol Sulfate (Ventolin Hfa) 90 mcg/actuation HFA aerosol inhaler Discontinued 2 NMA INHALATION EVERY 6 HOURS as needed October 11, 2017 12:00am October 11, 2017 7:47am Start: 10-10-2017 End: 10-11-2017 take 1 puff(s) by inhalation every six hours Albuterol Sulfate (Ventolin Hfa) 90 mcg/actuation HFA aerosol inhaler Discontinued 2 PUFF INHALATION EVERY 6 HOURS October 11, 2017 12:00am October 11, 2017 7:47am Start: 06-29-2017 End: 10-10-2017 Albuterol Sulfate 2.5 mg /3 mL (0.083 %) solution for nebulization Discontinued 2.5 mg INHALATION Q20M June 29, 2017 1:00am October 10, 2017 2:33pm arformoterol 0.0075 mg/ml inhalation solution (20 sources) beta2-Adrenergic Agonist Start: 04-28-2021 End: 08-14-2024 Arformoterol (Brovana) 15 mcg/2 mL solution for nebulization Discontinued 15 ug INHALATION TWICE A DAY October 07, 2022 1:03pm August 14, 2024 11:07am Start: 03-02-2019 take 1 dose by inhal ation once daily Brovana 15 mcg/2 mL inhalation solution 1 EA, Nebulized, qDay, # 60 EA, 0 Refill(s) Start Date: 03/02/19 Status: Ordered Start: 01-17-2019 End: 04-28-2021 Arformoterol (Brovana) 15 mc g/2 mL solution for nebulization Discontinued 15 ug INHALATION DAILY January 17, 2019 12:00am April 28, 2021 12:54pm azithromycin 250 mg oral tablet (2 sources) Macrolide Antimicrobial Start: 09-12-2024 End: 11-15-2024 take 1 tablet by mouth once Azithromycin 250 mg tablet Discontinued 250 mg PO every Tuesday, Tuesday, and Tuesday 1:00am November 15, 2024 11:31am cephalexin 500 mg oral capsule (4 sources) Cephalosporin Antibacterial Start: 04-06-2016 End: 06-29-2017 take 1 capsule by mouth twice daily Cephalexin 500 MG capsule Discontinued 500 mg PO TWICE A DAY April 06, 2016 12:00am June 29, 2017 3:40pm dexamethasone 6 mg oral tablet (3 sources) Corticosteroid Start: 09-23-2022 End: 03-21-2023 take 1 tablet by mouth once daily Dexamethasone 6 mg tablet Discontinued 6 mg PO DAILY September 23, 2022 12:00am March 21, 2023 9:37am Fluad Quad (65yr up)(PF) 60 mcg (15 mcg x 4)/0.5mL IM syringe (flu vac (1 source) Start: 04-24-2021 End: 04-24-2021 Fluad Quad (65yr up)(PF) 60 mcg (15 mcg x 4)/0.5mL IM syringe (flu vac Discontinued 60 MCG IM ONCE 0.5 April 24, 2021 11:12am April 24, 2021 11:48am Fluticasone Propion-Salmeterol (4 sources) Corticosteroid, beta2-Adrenergic Agonist Start: 03-29-2016 End: 10-10-2017 take 1 puff(s) by inhalation twice daily Fluticasone Propion-Salmeterol Discontinued 1 PUFF INHALATION TWICE A DAY March 29, 2016 2:11pm October 10, 2017 2:34pm Start: 03-29-2016 End: 10-10-2017 take 1 puff(s) by inhalation twice daily Fluticasone Propion-Salmeterol 1 PUFF inhaler Discontinued 1 NMA INHALATION TWICE A DAY March 29, 2016 12:00am October 10, 2017 2:34pm Start: 03-29-2016 End: 10-10-2017 take 1 puff(s) by inhalation twice daily Fluticasone Propion-Salmeterol Discontinued 1 PUFF INHALATION TWICE A DAY March 29, 2016 12:00am October 10, 2017 2:34pm Fluticasone Furoate-Vilanterol (12 sources) Corticosteroid, beta2-Adrenergic Agonist Start: 01-01-2019 End: 01-17-2019 Fluticasone Furoate-Vilanterol (Breo Ellipta) 200-25 mcg/dose blister with device Discontinued 1 NMA INHALATION DAILY 60 January 01, 2019 1:07pm January 17, 2019 5:36am Start: 01-01-2019 End: 01-17-2019 Fluticasone Furoate-Vilanter ol (Breo Ellipta) 200-25 mcg/dose blister with device Discontinued 1 INH INHALATION DAILY 60 January 01, 2019 1:07pm January 17, 2019 5:36am Start: 01-01-2019 End: 01-01-2019 Fluticasone Furoate-Vilanter ol (Breo Ellipta) 200-25 mcg/dose blister with device Discontinued 1 INH INHALATION DAILY January 01, 2019 12:14pm January 01, 2019 1:08pm Start: 01-01-2019 End: 01-01-2019 Fluticasone Furoate-Vilanter ol (Breo Ellipta) 200-25 mcg/dose blister with device Discontinued 1 NMA INHALATION DAILY January 01, 2019 12:00am January 01, 2019 1:08pm Start: 01-01-2019 End: 01-01-2019 Fluticasone Furoate-Vilanter ol (Breo Ellipta) 200-25 mcg/dose blister with device Discontinued 1 INH INHALATION DAILY January 01, 2019 12:00am January 01, 2019 1:08pm Start: 04-26-2018 End: 11-20-2018 Fluticasone Furoate-Vilanter ol (Breo Ellipta) 200-25 mcg/dose blister with device Discontinued 1 NMA INHALATION DAILY April 26, 2018 12:00am November 20, 2018 3:27pm Start: 04-26-2018 End: 11-20-2018 Fluticasone Furoate-Vilanter ol (Breo Ellipta) 200-25 mcg/dose blister with device Discontinued 1 INH INHALATION DAILY April 26, 2018 1:00pm November 20, 2018 3:27pm furosemide 40 mg oral tablet (7 sources) Loop Diuretic Start: 12-14-2021 End: 03-22-2022 take 1 tablet by mouth once daily Furosemide (Lasix) 40 mg tablet Discontinued 40 mg PO DAILY January 06, 2022 9:43am March 22, 2022 10:25am 24 hr isosorbide mononitrate 30 mg extended release oral tablet (20 sources) Nitrate Vasodilator Start: 03-29-2016 End: 09-11-2024 take 1 tablet by mouth once daily, then take 1 tablet by mouth every twenty-four hours Isosorbide Mononitrate 30 mg tablet extended release 24 hr Discontinued 30 mg PO DAILY August 13, 2024 12:31pm September 11, 2024 12:16pm Takes at 1200 losartan potassium 25 mg oral tablet (20 sources) Angiotensin 2 Receptor Uzma Start: 08-21-2020 End: 09-11-2024 take 1 tablet by mouth twice daily Losartan 25 mg tablet Discontinued 25 mg PO TWICE A DAY 180 August 13, 2024 12:32pm September 11, 2024 12:16pm Start: 12-24-2019 End: 08-21-2020 take 2 tablets by mouth once daily Losartan 25 MG tablet Discontinued 50 mg PO DAILY December 24, 2019 4:09pm August 21, 2020 2:16pm Start: 12-24-2019 End: 08-21-2020 take 50 mg by mouth once daily Losartan Discontinued 5 0 MG PO DAILY December 24, 2019 4:09pm August 21, 2020 2:16pm Start: 12-04-2019 End: 12-24-2019 take 1 tablet by mouth twice daily Losartan 25 mg tablet Discontinued 25 mg PO TWICE A DAY 180 December 04, 2019 12:00am December 24, 2019 4:10pm Start: 03-29-2016 End: 12-04-2019 take 1 tablet by mouth once daily Losartan 50 mg tablet Discontinued 50 mg PO DAILY 90 September 03, 2019 5:09pm December 04, 2019 2:35pm 24 hr metoprolol succinate 25 mg extended release oral tablet (20 sources) beta-Adrenergic Uzma Start: 12-05-2018 Metopr olol Succinate ER 25 mg oral tablet, extended release Dose : 12.5 mg = 0.5 tab(s), Oral, qDay, 0 Refill(s) Start Date: 12/05/18 Status: Ordered Start: 03-29-2016 End: 08-20-2024 take 2 tablets by mouth once daily Metoprolol Succinate 25 mg tablet extended release 24 hr Discontinued 12.5 mg PO DAILY August 13, 2024 12:31pm August 20, 2024 10:53am Start: 03-29-2016 End: 08-01-2023 take 12.5 mg by mouth once daily Metoprolol Succinate Active 12.5 MG PO DAILY August 01, 2023 3:05pm 24 hr niacin 1000 mg extended release oral tablet (8 sources) Nicotinic Acid Start: 03-29-2016 End: 09-12-2023 take 1 tablet by mouth every twenty-four hours at bedtime Niacin 1,000 mg tablet extended release 24 hr Discontinued 1000 mg PO AT BEDTIME June 19, 2018 9:39am September 12, 2023 12:40pm nitroglycerin 0.4 mg sublingual tablet (15 sources) Nitrate Vasodilator Start: 11-29-2017 End: 03-22-2022 Nitroglycerin 0.4 mg tablet, sublingual Discontinued 0.4 mg SL every 5 to 15 minutes as needed for chest pain June 15, 2021 3:52pm March 22, 2022 10:38am until response; do not exceed 3 doses per event Start: 11-29-2017 End: 03-22-2022 Nitroglycerin Active 0.4 MG SL every 5 to 15 minutes March 22, 2022 10:37am until response; do not exceed 3 doses per event pravastatin sodium 40 mg oral tablet (20 sources) HMG-CoA Reductase Inhibitor Start: 03-29-2016 End: 09-12-2023 take 1 tablet by mouth at bedtime Pravastatin 40 mg tablet Discontinued 40 mg PO AT BEDTIME August 01, 2023 3:05pm September 12, 2023 12:48pm Roflumilast (3 sources) Phosphodiesterase 4 Inhibitor Start: 07-29-2023 End: 09-12-2023 take 1 tablet by mouth once daily Roflumilast (Daliresp) 500 mcg tablet Discontinued 500 ug PO DAILY July 29, 2023 1:00am September 12, 2023 12:25pm Start: 07-29-2023 End: 09-12-2023 take 1 tablet by mouth once daily Roflumilast (Daliresp) 500 mcg tablet Discontinued 500 MCG PO DAILY July 29, 2023 1:00am September 12, 2023 12:25pm rosuvastatin calcium 20 mg oral tablet (9 sources) HMG-CoA Reductase Inhibitor Start: 09-12-2023 End: 08-20-2024 take 1 tablet by mouth once daily Rosuvastatin 20 mg tablet Discontinued 20 mg PO DAILY August 13, 2024 12:31pm August 20, 2024 10:53am Tiotropium [place] (4 sources) Anticholinergic Start: 07-07-2017 End: 10-10-2017 take 1 puff(s) by inhalation every twenty-four hours Tiotropium [place] (Spiriva Respimat) 2.5 mcg/actuation mist Discontinued 2 PUFF INHALATION Q24H July 07, 2017 3:02pm October 10, 2017 2:34pm administer at approximately the same time(s) each day Start: 07-07-2017 End: 10-10-2017 take 2.5 ug by inhalation every twenty-four hours Tiotropium [place] (Spiriva Respimat) 2.5 mcg/actuation mist Discontinued 2 NMA INHALATION Q24H July 07, 2017 1:00am October 10, 2017 2:34pm administer at approximately the same time(s) each day Start: 07-07-2017 End: 10-10-2017 take 1 puff(s) by inhalation every twenty-four hours Tiotropium [place] (Spiriva Respimat) 2.5 mcg/actuation mist Discontinued 2 PUFF INHALATION Q24H July 07, 2017 1:00am October 10, 2017 2:34pm administer at approximately the same time(s) each day Umeclidinium (4 sources) Anticholinergic Start: 04-26-2018 End: 10-11-2018 take 62.5 ug by inhalation once daily Umeclidinium (Incruse Ellipta) 62.5 mcg/actuation blister with device Discontinued 1 INH INHALATION DAILY April 26, 2018 1:19pm October 11, 2018 10:45am Start: 04-26-2018 End: 10-11-2018 take 62.5 ug by inhalation once daily Umeclidinium (Incruse Ellipta) 62.5 mcg/actuation blister with device Discontinued 1 NMA INHALATION DAILY April 26, 2018 12:00am October 11, 2018 10:45am Start: 04-26-2018 End: 10-11-2018 take 62.5 ug by inhalation once daily Umeclidinium (Incruse Ellipta) 62.5 mcg/actuation blister with device Discontinued 1 INH INHALATION DAILY April 26, 2018 12:00am October 11, 2018 10:45am 7 actuat umeclidinium 0.0625 mg/actuat / vilanterol 0.025 mg/actuat dry powder inhaler (4 sources) Anticholinergic, beta2-Adrenergic Agonist Start: 10-10-2017 End: 04-26-2018 Umeclidinium-Vilanterol (Anoro Ellipta) 62.5-25 mcg/actuation blister with device Discontinued 1 NMA INHALATION Q24H October 10, 2017 12:00am April 26, 2018 1:00pm Start: 10-10-2017 End: 04-26-2018 Umeclidinium-Vilanterol (Ano ro Ellipta) 62.5-25 mcg/actuation blister with device Discontinued 1 INH INHALATION Q24H October 10, 2017 2:34pm April 26, 2018 1:00pm Problems Active Problems Problem Classification Problem Date Documented Da te Episodic/Chronic Cardiac dysrhythmias (4 sources) Ventricular premature beats; Translations: [Ventricular premature depolarization] 05-21-2019 Chronic Chronic obstructive pulmonary disease and bronchiectasis (20 sources) Chronic obstructive lung disease; Translations: [Chronic obstructive pulmonary disease, unspecified] Onset: 01-06-2023 12-12-2020 Chronic Comment on above: FEV1 37% of predicte d Complication of device; implant or graft (4 sources) Disorders of prostheses and implants of the eye; Translations: [Displacement of other ocular prosthetic devices, implants and grafts, initial encounter] 12-24-2019 Episodic Coronary atherosclerosis and other heart disease (20 sources) Coronary arteriosclerosis; Translations: [Old myocardial infarction] Onset: 09-12-2024 02-11-2020 Chronic Comment on above: CABG x3- ONOFRE to LAD , Free Lt Radial Artery to the OM branch of CX, reverse SVG from the aorta to the distal RCA 08/01/01; Sternal Rewiring with Debridement 06/20/02. Coronary atherosclerosis and other heart disease (8 sources) Aortocoronary bypass graft present; Translations: [Presence of aortocoronary bypass graft] Onset: 07-11-2001 10-25-2019 Episodic Comment on above: CABG x3- ONOFRE to LAD , Free Lt Radial Artery to the OM branch of CX, reverse SVG from the aorta to the distal RCA 08/01/01; Sternal Rewiring with Debridement 06/20/02 w/stent 1989 Disorders of lipid metabolism (14 sources) Mixed hyperlipidemia; Translations: [Hyperlipidemia] Onset: 07-07-2023 12-12-2020 Chronic Essential hypertension (3 sources) Hypertensive disorder; Translations: [Essential (primary) hypertension] Onset: 07-07-2023 12-12-2020 Chronic Genitourinary symptoms and ill-defined conditions (2 sources) Dysuria; Translations: [Dysuria] Onset: 06-15-2024 Episodic Other ear and sense organ disorders (1 source) Bilateral hearing loss; Translations: [Unspecified hearing loss, bilateral] 04-03-2024 Chronic Other ear and sense organ disorders (4 sources) Cochlear prosthesis in situ; Translations: [Cochlear implant status] Onset: 10-31-2024 04-03-2024 Chronic Other ear and sense organ disorders (3 sources) Sensorineural hearing loss, bilateral; Translations: [Sensorineural hearing loss, bilateral] Onset: 10-31-2024 06-26-2024 Chronic Other lower respiratory disease (4 sources) Dyspnea on exertion; Translations: [Dyspnea, unspecified] 12-14-2021 Episodic Other lower respiratory disease (1 source) Dyspnea, unspecified; Translations: [Other respiratory abnormalities] Episodic Other screening for suspected conditions (not mental disorders or infectious disease) (4 sources) Encounter for screening for malignant neoplasm of prostate; Translations: [Encounter for screening for malignant neoplasm of prostate] Onset: 07-07-2023 Episodic Peripheral and visceral atherosclerosis (4 sources) Intermittent claudication; Translations: [Peripheral vascular disease, unspecified] 02-07-2018 Chronic Pneumonia (except that caused by tuberculosis or sexually transmitted disease) (4 sources) Pneumonia; Translations: [Pneumonia, unspecified organism] 06-15-2021 Episodic Residual codes; unclassified (4 sources) Hypoxia; Translations: [Idiopathic sleep related nonobstructive alveolar hypoventilation] 07-07-2017 Chronic Respiratory failure; insufficiency; arrest (adult) (15 sources) Chronic hypoxemic respiratory failure; Translations: [Chronic respiratory failure with hypoxia] Onset: 11-28-2024 Chronic Septicemia (except in labor) (8 sources) Sepsis; Translations: [Sepsis, unspecified organism] 06-15-2021 Episodic Substance-related disorders (5 sources) Tobacco dependence in remission; Translations: [Nicotine dependence, unspecified, in remission] 07-07-2017 Chronic Superficial injury; contusion (1 source) Abrasion and/or friction burn of nose with infection 02-11-2020 Episodic Unclassified (1 source) Patient encounter status 06-15-2021 Unclassified (1 source) Discharged with home hospice care Past or Other Problems Problem Classification Problem Date Documented Da te Episodic/Chronic Immunizations and screening for infectious disease (2 sources) Encounter for screening for other viral diseases; Translations: [Encounter for screening for other viral diseases] Onset: 01-06-2023 Episodic Results Test Name Value Interpretation Reference Range Facility Basic Metabolic Profile (BMP )on 11-20-2024 BUN Normal 4-19 [facility] Comment on above: Result Comment: Canc elled via OM: Order cancelled - Patient discharged Performed By: #### L 500.2500 #### [facility] [address] [facility] [address] BUN/CRE Normal 10-20 [facility] Comment on above: Result Comment: Canc elled via OM: Order cancelled - Patient discharged Performed By: #### L 500.2500 #### [facility] [address] [facility] [address] Calcium Normal 7.6-11.0 [facility] Comment on above: Result Comment: Canc elled via OM: Order cancelled - Patient discharged Performed By: #### L 500.2500 #### [facility] [address] [facility] [address] CL Normal 98-108 [facility] Comment on above: Result Comment: Canc elled via OM: Order cancelled - Patient discharged Performed By: #### L 500.2500 #### [facility] [address] [facility] [address] CO2 Normal 21.0-32.0 [facility] Comment on above: Result Comment: Canc elled via OM: Order cancelled - Patient discharged Performed By: #### L 500.2500 #### [facility] [address] [place], [address] CREAT,SERUM Normal 0.70-1.20 [facility] Comment on above: Result Comment: Canc elled via OM: Order cancelled - Patient discharged Performed By: #### L 500.2500 #### [facility] [address] [place], [address] eGFR Normal >60 [facility] Comment on above: Result Comment: Canc elled via OM: Order cancelled - Patient discharged Performed By: #### L 500.2500 #### [facility] [address] [place], [address] GAP Normal 5-15 [facility] Comment on above: Result Comment: Canc elled via OM: Order cancelled - Patient discharged Performed By: #### L 500.2500 #### [facility] [address] [place], [address] GLU Normal 70-99 [facility] Comment on above: Result Comment: Canc elled via OM: Order cancelled - Patient discharged Performed By: #### L 500.2500 #### [facility] [address] [place], [address] Potassium Normal 3.3-5.1 [facility] Comment on above: Result Comment: Canc elled via OM: Order cancelled - Patient discharged Performed By: #### L 500.2500 #### [facility] [address] [place], [address] Basic Metabolic Profile (BMP) Normal 133-145 [facility] Comment on above: Result Comment: Canc elled via OM: Order cancelled - Patient discharged Performed By: #### L 500.2500 #### [facility] [address] [place], [address] CBC W/Diff, Automatedon 05-1 Absolute Neut Normal 2.0-7.7 [facility] Comment on above: Result Comment: Canc elled via OM: Order cancelled - Patient discharged Performed By: #### L 500.2500 #### [facility] [address] [place], [address] HCT Normal 40-54 [facility] Comment on above: Result Comment: Canc elled via OM: Order cancelled - Patient discharged Performed By: #### L 500.2500 #### [facility] [address] [place], [address] HGB Normal 13.0-16.5 [facility] Comment on above: Result Comment: Canc elled via OM: Order cancelled - Patient discharged Performed By: #### L 500.2500 #### [facility] [address] [place], [address] MCH Normal 27.0-32.0 [facility] Comment on above: Result Comment: Canc elled via OM: Order cancelled - Patient discharged Performed By: #### L 500.2500 #### [facility] [address] [place], [address] MCHC Normal 32-36 [facility] Comment on above: Result Comment: Canc elled via OM: Order cancelled - Patient discharged Performed By: #### L 500.2500 #### [facility] [address] [place], [address] MCV Normal 80-94 [facility] Comment on above: Result Comment: Canc elled via OM: Order cancelled - Patient discharged Performed By: #### L 500.2500 #### [facility] [address] [place], [address] NEUT% Normal 47-70 [facility] Comment on above: Result Comment: Canc elled via OM: Order cancelled - Patient discharged Performed By: #### L 500.2500 #### [facility] [address] [place], [address] PLT Normal 150-450 [facility] Comment on above: Result Comment: Canc elled via OM: Order cancelled - Patient discharged Performed By: #### L 500.2500 #### [facility] [address] [place], [address] RBC Normal 4.6-6.2 [facility] Comment on above: Result Comment: Canc elled via OM: Order cancelled - Patient discharged Performed By: #### L 500.2500 #### [facility] [address] [place], [address] RDW CV Normal 11.6-14.6 [facility] Comment on above: Result Comment: Canc elled via OM: Order cancelled - Patient discharged Performed By: #### L 500.2500 #### [facility] [address] [place], [address] RDW SD Normal 35.1-43.9 [facility] Comment on above: Result Comment: Canc elled via OM: Order cancelled - Patient discharged Performed By: #### L 500.2500 #### [facility] [address] [place], [address] WBC Normal 4.4-11.0 [facility] Comment on above: Result Comment: Canc elled via OM: Order cancelled - Patient discharged Performed By: #### L 500.2500 #### [facility] [address] [place], [address] Absolute lymphocyte countOrd ered By: Rohan Henao on 11-19-2024 Lymphocytes Auto (Unsp spec) [#/Vol] 2.28 10*3/uL 0.83-4.51 [facility] Absolute neutrophil countOrd ered By: Rohan Henao on 11-19-2024 Neutrophils (Bld) [#/Vol] 9.0 10*3/uL High 2.0-7.7 [facility] Anion gap in Serum or Plasma Ordered By: Rohan Henao on 11-19-2024 Anion gap [Moles/Vol] 9 mmol/L 5-15 [facility] Automated lymphocyte count a s percentage of total leukocytesOrdered By: Rohan Henao on 11-19-2024 Lymphocytes/100 WBC Auto (Unsp spec) 18.5 % Low 19-41 [facility] BUN/creatinine ratioOrdered By: Rohan Henao on 11-19-2024 Urea nitrogen/Creatinine [Mass ratio] 24.2 mg/mg High 10- [facility] Basic Metabolic Profile (BMP )on 11-19-2024 BUN/CRE 24.2 RATIO High 04-29 [facility] Comment on above: Performed By: #### L 509.7001, L503.7505 #### [facility] [address] [place], [address] Calcium [Mass/Vol] 8.5 mg/dL Normal 7.6-11.0 [facility] Comment on above: Performed By: #### L 509.7001, [id number] #### [facility] [address] [place], [address] Chloride [Moles/Vol] 106 mmol/L Normal 98-108 [facility] Comment on above: Performed By: #### L 509.7001, [id number] #### [facility] [address] [place], [address] CO2 [Moles/Vol] 24.1 mmol/L Normal 21.0-32.0 [facility] Comment on above: Performed By: #### L 509.7001, [id number] #### [facility] [address] [place], [address] Creatinine [Mass/Vol] 0.86 mg/dL Normal 0.70-1.20 [facility] Comment on above: Performed By: #### L 509.7001, [id number] #### [facility] [address] [place], [address] ECRCL 68.51 ml/min Normal 50-250 [facility] Comment on above: Performed By: #### L 509.7001, [id number] #### [facility] [address] [place], [address] GAP 9 Normal 5-15 [facility] Comment on above: Performed By: #### L 509.7001, [id number] #### [facility] [address] [place], [address] GFR/1.73 sq M.predicted among non-blacks MDRD (S/P/Bld) [Vol rate/Area] 88 mL/min/{1.73_m2} Normal >60 [facility] Comment on above: Result Comment: mL/m in/1.73m2 CKD-EPI Creatinine Equation (2020) Performed By: #### L 509.7001, [id number] #### [facility] [address] [place], [address] Glucose [Mass/Vol] 88 mg/dL Normal 70-99 [facility] Comment on above: Performed By: #### L 509.7001, [id number] #### [facility] [address] [place], [address] Potassium [Moles/Vol] 3.8 mmol/L Normal 3.3-5.1 [facility] Comment on above: Performed By: #### L 509.7001, [id number] #### [facility] [address] [place], [address] Sodium [Moles/Vol] 139 mmol/L Normal 133-145 [facility] Comment on above: Performed By: #### L 509.7001, [id number] #### [facility] [address] [place], [address] Urea nitrogen [Mass/Vol] 21 mg/dL High 4-19 [facility] Comment on above: Performed By: #### L 509.7001, [id number] #### [facility] [address] [place], [address] Basophil percentageOrdered B y: Rohan Juliano on 11-19-2024 Basophils/100 WBC (Bld) 0.1 % 0-1 [facility] CBC W/Diff, Automatedon 11-08-2024 Absolute Lymph 2.28 X10 3/uL Normal 0.83-4.51 [facility] Comment on above: Performed By: #### L 509.7001, [id number] #### [facility] [address] [place], [address] Absolute Neut 9.0 X10 3/uL High 2.0-7.7 [facility] Comment on above: Performed By: #### L 509.7001, [id number] #### [facility] [address] [place], [address] Basophils/100 WBC (Bld) 0.1 % Normal 0-1 [facility] Comment on above: Performed By: #### L 509.7001, [id number] #### [facility] [address] [place], [address] Eosinophils/100 WBC (Bld) 0.2 % Normal 0-5 [facility] Comment on above: Performed By: #### L 509.7001, [id number] #### [facility] [address] [place], [address] Erythrocyte distribution width (RBC) [Ratio] 13.4 % Normal 11.6-14.6 [facility] Comment on above: Performed By: #### L 509.7001, [id number] #### [facility] [address] [place], [address] Hematocrit (Bld) [Volume fraction] 36.6 % Low 40-54 [facility] Comment on above: Performed By: #### L 509.7001, [id number] #### [facility] [address] [place], [address] Hemoglobin (Bld) [Mass/Vol] 11.7 g/dL Low 13.0-16.5 [facility] Comment on above: Performed By: #### L 509.7001, [id number] #### [facility] [address] [place], [address] IG% 0.600 Normal 0.0-0.9 [facility] Comment on above: Result Comment: IG% - Immature Granulocytes (promyelocytes, myelocytes and metamyelocytes) > 1% indicates that a LEFT SHIFT is Present. Performed By: #### L 509.7001, [id number] #### [facility] [address] [place], [address] Lymphocytes/100 WBC (Bld) 18.5 % Low 19-41 [facility] Comment on above: Performed By: #### L 509.7001, [id number] #### [facility] [address] [place], [address] MCH (RBC) [Entitic mass] 30.9 pg Normal 27.0-32.0 [facility] Comment on above: Performed By: #### L 509.7001, [id number] #### [facility] [address] [place], [address] MCHC (RBC) [Mass/Vol] 32.0 g/dL Normal 32-36 [facility] Comment on above: Performed By: #### L 509.7001, [id number] #### [facility] [address] [place], [address] MCV (RBC) [Entitic vol] 96.6 fL High 80-94 [facility] Comment on above: Performed By: #### L 509.7001, [id number] #### [facility] [address] [place], [address] Monocytes/100 WBC (Bld) 8.1 % Normal 0-10 [facility] Comment on above: Performed By: #### L 509.7001, [id number] #### [facility] [address] [place], [address] Neutrophils/100 WBC (Bld) 72.5 % High 47-70 [facility] Comment on above: Performed By: #### L 509.7001, [id number] #### [facility] [address] [place], [address] Nucleated RBC (Bld) [#/Vol] 0 10*3/uL Normal 0-5 [facility] Comment on above: Performed By: #### L 509.7001, [id number] #### [facility] [address] [place], [address] Platelet mean volume (Bld) [Entitic vol] 9.2 fL Normal 6.2-12.0 [facility] Comment on above: Performed By: #### L 509.7001, [id number] #### [facility] [address] [place], [address] Platelets (Bld) [#/Vol] 206 10*3/uL Normal 150-450 [facility] Comment on above: Performed By: #### L 509.7001, [id number] #### [facility] [address] [place], [address] RBC (Bld) [#/Vol] 3.79 10*6/uL Low 4.6-6.2 [facility] Comment on above: Performed By: #### L 509.7001, L503.2684 #### [facility] [address] [place], [address] RDW SD 47.7 fl High 35.1-43.9 [facility] Comment on above: Performed By: #### L 509.7001, L503.2356 #### [facility] [address] [place], [address] WBC (Bld) [#/Vol] 12.4 10*3/uL High 4.4-11.0 [facility] Comment on above: Performed By: #### L 509.7001, L516.1839 #### [facility] [address] [place], [address] Carbon dioxide, total [Moles /volume] in Central venous bloodOrdered By: Rohan Henao on 11-19-2024 CO2 [Moles/Vol] 24.1 mmol/L 21.0-32.0 [facility] Chloride assayOrdered By: Andres Henao on 11-19-2024 Chloride [Moles/Vol] 106 mmol/L 98-108 [facility] Discharge Instructionon 11-08 Discharge Instruction [facility] Medical Records Department [address] [place] [address] Instructions for Home/Discharge Instructions 11/19/24 1019 MR#: [id number] Acct: [id number] Name: ELIANANANETTE Faith Rep #: [id number] : [id number] 79 From: Rohan Henao MD PCP: Dr. Fernandez Baig, DO Status:ADM IN Discharge Instructions Diet Discharge Diet: No restrictions DC O2, CPAP, BIPAP needs Home O2 Discharge instructions: Yes Type of respiratory needs?: Oxygen Oxygen frequency: Continuous Continuous oxygen liters per minute: 6 Dressing / Incision Discharge Activity: Return to Normal Activity Weight Bearing Status: Weight bearing as tolerated Dressing / Incision Call your doctor if you observe: - (Discharged with home hospice care.) Follow Up Care When: IN 2 WEEKS Test Results: Test results from this visit will be discussed in further detail at your follow-up appointment, if applicable. Discharge Plan Admission Admit Date/Time: 11/15/24 13:43 Primary Reason for Your Visit: End-stage COPD, pneumonia bilateral, bronchiectasis Attending Provider: Rohan Henao Primary Care Provider: Fernandez Baig Consulting Providers: Jay Cueva; Jermaine Thapa; Ferdinand Shearer; Harsh Manzo; Khai Kaye; Roberto Stark; Tre Cyr; Elton Saez os; Carlos Sanchez; Rj Garcia; Jb Cooley; Ginny Brock; Claudine Quezada; Crook,Desiree; Radha,Brian; Tano Romero; Yonny Cabrales; Slade Saini; Jakob Gallegos; Laura Sam; Doug Lai; Yusuf Stearns; Alexi Gurrola; Klaus Bardales; Azucena Bethea NP; Mathew Low; Khai Heart; Constanza Shearer; Bhavana Tellez; Jenny Tijerina; Naya Livingston PARTS IDENTIFICATION TECHNICIAN; Adrianne Mcqueen Discharge Orders/Prescription s Prescriptions: New benzonatate 100 mg Capsule 200 mg PO TID PRN (Reason: cough) Qty: 30 0RF dextromethorphan-gu aifenesin 60-1,200 mg tablet extended release 12 hr 1 tab PO BID 7 Days Qty: 14 0RF sennosides-docusate sodium [Stimulant Laxative Plus] 8.6-50 mg Tablet 2 tab PO BID Qty: 0 0RF Daily Fiber (psyllium-aspart) 3 gram Powder In Packet 1 packet PO DAILY PRN PRN (Reason: Constipation) Qty: 0 0RF Rx Instructions: Iujx-iwq-chcdrmc prednisone 10 mg tablet 10 mg PO DAILY Qty: 30 0RF Rx Instructions: 40 mg for 3 days 30 mg for 3 days, 20 mg for 3 days,and 10 mg for 3 days levofloxacin 500 mg tablet 500 mg PO DAILY 5 Days Qty: 5 0RF Continued nitroglycerin 0.4 mg tablet, sublingual 0.4 mg SUBLINGUAL Q5-15M PRN (Reason: chest pain) Qty: 25 3RF Rx Instructions: until response; do not exceed 3 doses per event (DME) Handicap Placcard See Rx Instructions .ROUTE .MEDSUPPLY Qty: 1 0RF Rx Instructions: Time Duration: 99 months ipratropium-albuter ol 0.5 mg-3 mg(2.5 mg base)/3 mL solution for nebulization 3 ml inhalation DAILY losartan 25 mg tablet 25 mg PO BID Qty: 180 4RF isosorbide mononitrate 30 mg tablet extended release 24 hr 30 mg PO DAILY Qty: 90 4RF Rx Instructions: Takes at 1200 albuterol sulfate 90 mcg/actuation HFA aerosol inhaler 2 puff INHALATION Q4H PRN (Reason: shortness of breath or wheezing) Qty: 8.5 3RF Rx Instructions: administer with spacer albuterol sulfate 2.5 mg /3 mL (0.083 %) solution for nebulization 2.5 mg INHALATION Q4H Qty: 180 6RF Brovana 15 mcg/2 mL solution for nebulization 15 mcg INHALATION BID Qty: 120 11RF budesonide 0.5 mg/2 mL suspension for nebulization 0.5 mg INHALATION BID Qty: 120 11RF guaifenesin 1,200 mg tablet extended release 12hr 1,200 mg PO Q12H Qty: 60 6RF aspirin 81 MG tablet 81 mg PO DAILY@2000 metoprolol succinate 25 mg tablet extended release 24 hr 12.5 mg PO DAILY Qty: 45 4RF rosuvastatin 20 mg tablet 20 mg PO DAILY Qty: 90 4RF Held prednisone 10 mg tablet 10 mg PO DAILY Hold Instructions: Hold it whileshe completes prednisone taper dose Referrals / Follow Up: Fernandez Baig DO [Primary Care Provider] - Within 2 Weeks (Discharged with home hospice care) Disposition Disposition (needs filled in before D/C Order can be placed): Hospice in Home 11/19/24 1229 Rohan Henao MD CC: MIKAEL Bethea; MIKAEL Tijerina; MIKAEL Livingston; Dr. Jermaine Thapa MD; Dr. Jay Cueva MD; Dr. Ferdinand Shearer MD; Dr. Khai Kaye MD; Dr. Khai Heart DO; Dr. Harsh Manzo DO; Dr. Roberto Stark MD; Dr. Tre Cyr MD; Dr. Carlos Sanchez MD; Dr. Bhavana Tellez MD; Dr. Constanza Shearer MD; Dr. Rj Garcia MD; Dr. Jb Cooley MD; Dr. Ginny Brock MD; Dr. Claudine Quezada MD; Dr. Desiree Crook MD; Dr. Tano Romero MD; Dr. Brian Garcia MD; Dr. Fernandez Baig DO; Dr. Yonny Cabrales MD; Dr. Laura Sam MD; Dr. Jakob Gallegos MD; Dr. Slade Saini DO; Dr. Yusuf Stearns MD; Dr. Doug Lai DO; Dr. Alexi Gurrola MD; Dr. Klaus Bardales MD; Dr. Bette Saez MD; Mathew Low NP; CARMELITA Vasquez Signed Normal [facility] Eosinophil percentageOrdered By: Rohan Henao on 11-19-2024 Eosinophils/100 WBC (Bld) 0.2 % 0-5 [facility] Erythrocyte distribution wid th ratioOrdered By: Rohan Henao on 11-19-2024 Erythrocyte distribution width (RBC) [Ratio] 13.4 % 11.6-14.6 [facility] Erythrocyte distribution wid th standard deviationOrdered By: Rohan Henao on 11-19-2024 Erythrocyte distribution width (RBC) [Ratio] 47.7 fl High 35.1-43.9 [facility] Glomerular filtration rate ( GFR) estimation/1.73 sq m using serum, plasma, or whole bOrdered By: Rohan Henao on 11-19-2024 GFR/1.73 sq M.predicted among non-blacks MDRD (S/P/Bld) [Vol rate/Area] 88 mL/min/{1.73_m2} >60 [facility] Comment on above: mL/min/1.73m2 CKD-EP I Creatinine Equation (2020) Hematocrit Auto (Bld) [Volum e fraction]Ordered By: Rohan Henao on 11-19-2024 Hematocrit (Bld) [Volume fraction] 36.6 % Low 40-54 [facility] Hemoglobin measurementOrdere d By: Rohan Henao on 11-19-2024 Hemoglobin (Bld) [Mass/Vol] 11.7 g/dL Low 13.0-16.5 [facility] Immature granulocytes/100 WB C Auto (Bld)Ordered By: Rohan Henao on 11-19-2024 Immature granulocytes/100 WBC (Bld) 0.600 % 0.0-0.9 [facility] Comment on above: IG% - Immature Granu locytes (promyelocytes, myelocytes and metamyelocytes) > 1% indicates that a LEFT SHIFT is Present. MCV (mean corpuscular volume ) determinationOrdered By: Rohan Henao on 11-19-2024 MCV (RBC) [Entitic vol] 96.6 fL High 80-94 [facility] Mean corpuscular hemoglobin (MCH) determinationOrdered By: Rohan Henao on 11-19-2024 MCH (RBC) [Entitic mass] 30.9 pg 27.0-32.0 [facility] Mean corpuscular hemoglobin concentration (MCHC) determinationOrdered By: Rohan Henao on 11-19-2024 MCHC (RBC) [Mass/Vol] 32.0 g/dL 32-36 [facility] Mean platelet volume determi nationOrdered By: Rohan Henao on 11-19-2024 Platelet mean volume (Bld) [Entitic vol] 9.2 fL 6.2-12.0 [facility] Monocyte percentageOrdered B y: Rohan Henao on 11-19-2024 Monocytes/100 WBC (Bld) 8.1 % 0-10 [facility] Neutrophil percentageOrdered By: Rohan Henao on 11-19-2024 Neutrophils/100 WBC (Bld) 72.5 % High 47-70 [facility] Nucleated red blood cell per centageOrdered By: Rohan Henao on 11-19-2024 Nucleated RBC/100 WBC (Bld) [Ratio] 0 % 0-5 [facility] Platelet countOrdered By: Andres Henao on 11-19-2024 Platelets (Bld) [#/Vol] 206 10*3/uL 150-450 [facility] Potassium measurement (mass/ volume)Ordered By: Rohan Henao on 11-19-2024 Potassium (Unsp spec) [Mass/Vol] 3.8 mmol/L 3.3-5.1 [facility] RBC Auto (Bld) [#/Vol]Ordere d By: Rohan Henao on 11-19-2024 RBC (Bld) [#/Vol] 3.79 10*6/uL Low 4.6-6.2 [facility] Respiratory Cultureon 2024 RESPC Microorganism Spec Cult Streptococcus pneumoniae Amount Growth 3+ Pseudomonas aeruginosa Amount Growth 1+ Streptococcus pneumoniae: REACTION Cefotaxime Islt ARIE <=0.12 S Cefotaxime Islt ARIE <=0.12 S cefTRIAXone Islt ARIE <=0.12 S cefTRIAXone Islt ARIE <=0.12 S Clindamycin Islt ARIE >=1 R Erythromycin Islt ARIE >=8 R levoFLOXacin Islt ARIE 0.5 S Moxifloxacin Islt ARIE 0.12 S TMP SMX Islt ARIE 40 I Vancomycin Islt ARIE 0.5 S Penicillin Islt ARIE 0.25 R Penicillin Islt ARIE 0.25 S Penicillin Islt ARIE 0.25 I Pseudomonas aeruginosa: REACTION Aztreonam Islt KB 24 S Pseudomonas aeruginosa: REACTION Cefepime Islt ARIE 2 S Ciprofloxacin Islt ARIE 0.12 S levoFLOXacin Islt ARIE 0.25 S Meropenem Islt ARIE 1 S Pip+Tazo Islt ARIE 8 S Pseudomonas aeruginosa: REACTION Amikacin Islt ARIE 2 S Imipenem Islt ARIE 2 S Tobramycin Islt ARIE <=1 S Normal [facility] Comment on above: Performed By: #### L 509.7001, L503.7505 #### [facility] [address] [place], [place], [id number] Serum creatinine measurement (mass/volume)Ordered By: Rohan Henao on 11-19-2024 Creatinine [Mass/Vol] 0.86 mg/dL 0.70-1.20 [facility] Serum glucose measurement (m ass/volume)Ordered By: Rohan Henao on 11-19-2024 Glucose [Mass/Vol] 88 mg/dL 70-99 [facility] Serum or plasma calcium todd urement (mass/volume)Ordered By: Rohan Henao on 11-19-2024 Calcium [Mass/Vol] 8.5 mg/dL 7.6-11.0 [facility] Serum or plasma urea nitroge n measurement (mass/volume)Ordered By: Rohanandrez Henao on 11-19-2024 Urea nitrogen [Mass/Vol] 21 mg/dL High 4-19 [facility] Sodium levelOrdered By: Connie drummond Juliano on 11-19-2024 Sodium [Moles/Vol] 139 mmol/L 133-145 [facility] White blood cell (WBC) count Ordered By: Rohanandrez Henao on 11-19-2024 WBC (Bld) [#/Vol] 12.4 10*3/uL High 4.4-11.0 [facility] Basic Metabolic Profile (BMP )on 11-18-2024 BUN/CRE 25.3 RATIO High 10-20 [facility] Comment on above: Performed By: #### L 500.2500 #### [facility] [address] [facility] [address] Calcium [Mass/Vol] 8.5 mg/dL Normal 7.6-11.0 [facility] Comment on above: Performed By: #### L 500.2500 #### [facility] [address] [facility] [address] Chloride [Moles/Vol] 108 mmol/L Normal 98-108 [facility] Comment on above: Performed By: #### L 500.2500 #### [facility] [address] [place], [address] CO2 [Moles/Vol] 22.2 mmol/L Normal 21.0-32.0 [facility] Comment on above: Performed By: #### L 500.2500 #### [facility] [address] [place], [address] Creatinine [Mass/Vol] 0.96 mg/dL Normal 0.70-1.20 [facility] Comment on above: Performed By: #### L 500.2500 #### [facility] [address] [place], [address] ECRCL 61.37 ml/min Normal 50-250 [facility] Comment on above: Performed By: #### L 500.2500 #### [facility] [address] [place], [address] GAP 9 Normal 5-15 [facility] Comment on above: Performed By: #### L 500.2500 #### [facility] [address] [place], [address] GFR/1.73 sq M.predicted among non-blacks MDRD (S/P/Bld) [Vol rate/Area] 80 mL/min/{1.73_m2} Normal >60 [facility] Comment on above: Result Comment: mL/m in/1.73m2 CKD-EPI Creatinine Equation (2020) Performed By: #### L 500.2500 #### [facility] [address] [place], [address] Glucose [Mass/Vol] 116 mg/dL High 70-99 [facility] Comment on above: Performed By: #### L 500.2500 #### [facility] [address] [place], [address] Potassium [Moles/Vol] 3.9 mmol/L Normal 3.3-5.1 [facility] Comment on above: Performed By: #### L 500.2500 #### [facility] [address] [place], [address] Sodium [Moles/Vol] 139 mmol/L Normal 133-145 [facility] Comment on above: Performed By: #### L 500.2500 #### [facility] [address] [place], [address] Urea nitrogen [Mass/Vol] 24 mg/dL High 4-19 [facility] Comment on above: Performed By: #### L 500.2500 #### [facility] [address] [place], [address] Lactic Acidon 11-18-2024 Lactate [Moles/Vol] mmol/L Normal 0.0-2.0 [facility] Comment on above: Performed By: #### L 503.6005 #### [facility] [address] [place], [address] Lactic acid measurementOrder ed By: Carlos Sanchez on 11-18-2024 Lactate [Moles/Vol] mmol/L 0.0-2.0 [facility] Basic Metabolic Profile (BMP )on 11-17-2024 BUN/CRE 23.2 RATIO High 10-20 [facility] Comment on above: Performed By: #### L 500.2500 #### [facility] [address] [place], [address] Calcium [Mass/Vol] 9.0 mg/dL Normal 7.6-11.0 [facility] Comment on above: Performed By: #### L 500.2500 #### [facility] [address] [place], [address] Chloride [Moles/Vol] 104 mmol/L Normal 98-108 [facility] Comment on above: Performed By: #### L 500.2500 #### [facility] [address] [place], [address] CO2 [Moles/Vol] 22.7 mmol/L Normal 21.0-32.0 [facility] Comment on above: Performed By: #### L 500.2500 #### [facility] [address] [place], [address] Creatinine [Mass/Vol] 0.97 mg/dL Normal 0.70-1.20 [facility] Comment on above: Performed By: #### L 500.2500 #### [facility] [address] [place], [address] ECRCL 60.74 ml/min Normal 50-250 [facility] Comment on above: Performed By: #### L 500.2500 #### [facility] [address] [place], [address] GAP 11 Normal 5-15 [facility] Comment on above: Performed By: #### L 500.2500 #### [facility] [address] [place], [address] GFR/1.73 sq M.predicted among non-blacks MDRD (S/P/Bld) [Vol rate/Area] 79 mL/min/{1.73_m2} Normal >60 [facility] Comment on above: Result Comment: mL/m in/1.73m2 CKD-EPI Creatinine Equation (2020) Performed By: #### L 500.2500 #### [facility] [address] [place], [address] Glucose [Mass/Vol] 112 mg/dL High 70-99 [facility] Comment on above: Performed By: #### L 500.2500 #### [facility] [address] [place], [address] Potassium [Moles/Vol] 4.3 mmol/L Normal 3.3-5.1 [facility] Comment on above: Performed By: #### L 500.2500 #### [facility] [address] [place], [address] Sodium [Moles/Vol] 138 mmol/L Normal 133-145 [facility] Comment on above: Performed By: #### L 500.2500 #### [facility] [address] [place], [address] Urea nitrogen [Mass/Vol] 23 mg/dL High 4-19 [facility] Comment on above: Performed By: #### L 500.2500 #### [facility] [address] [place], [address] Lactic Acidon 11-17-2024 Lactate [Moles/Vol] 2.0 mmol/L Normal 0.0-2.0 [facility] Comment on above: Order Comment: Y Result Comment: Crit ical Result(s) Called to Devonte BARONE (U): by Ike:??Results read back by same. Performed By: #### L 509.7001, L503.7505 #### [facility] [address] [place], [address] Basic Metabolic Profile (BMP )on 11-16-2024 BUN/CRE 17.4 RATIO Normal 10-20 [facility] Comment on above: Performed By: #### L 100.0100, L500.2500 #### [facility] [address] [place], [address] Calcium [Mass/Vol] 8.7 mg/dL Normal 7.6-11.0 [facility] Comment on above: Performed By: #### L 100.0100, L500.2500 #### [facility] [address] [place], [address] Chloride [Moles/Vol] 105 mmol/L Normal 98-108 [facility] Comment on above: Performed By: #### L 100.0100, L500.2500 #### [facility] [address] [place], [address] CO2 [Moles/Vol] 18.6 mmol/L Low 21.0-32.0 [facility] Comment on above: Performed By: #### L 100.0100, L500.2500 #### [facility] [address] [place], [address] Creatinine [Mass/Vol] 0.97 mg/dL Normal 0.70-1.20 [facility] Comment on above: Performed By: #### L 100.0100, L500.2500 #### [facility] [address] [place], [address] ECRCL 60.74 ml/min Normal 50-250 [facility] Comment on above: Performed By: #### L 100.0100, L500.2500 #### [facility] [address] [place], [address] GAP 15 Normal 5-15 [facility] Comment on above: Performed By: #### L 100.0100, L500.2500 #### [facility] [address] [place], [address] GFR/1.73 sq M.predicted among non-blacks MDRD (S/P/Bld) [Vol rate/Area] 79 mL/min/{1.73_m2} Normal >60 [facility] Comment on above: Result Comment: mL/m in/1.73m2 CKD-EPI Creatinine Equation (2020) Performed By: #### L 100.0100, L500.2500 #### [facility] [address] [place], [address] Glucose [Mass/Vol] 114 mg/dL High 70-99 [facility] Comment on above: Performed By: #### L 100.0100, L500.2500 #### [facility] [address] [place], [address] Potassium [Moles/Vol] 4.3 mmol/L Normal 3.3-5.1 [facility] Comment on above: Performed By: #### L 100.0100, L500.2500 #### [facility] [address] [place], [address] Sodium [Moles/Vol] 139 mmol/L Normal 133-145 [facility] Comment on above: Performed By: #### L 100.0100, L500.2500 #### [facility] [address] [place], [address] Urea nitrogen [Mass/Vol] 17 mg/dL Normal 4-19 [facility] Comment on above: Performed By: #### L 100.0100, L500.2500 #### [facility] [address] [place], [address] CBC W/Diff, Automatedon 05-0 9-2025 Absolute Lymph 0.64 X10 3/uL Low 0.83-4.51 [facility] Comment on above: Performed By: #### L 100.0100, L500.2500 #### [facility] [address] [place], [address] Absolute Neut 14.4 X10 3/uL High 2.0-7.7 [facility] Comment on above: Performed By: #### L 100.0100, L500.2500 #### [facility] [address] [place], [address] Basophils/100 WBC (Bld) 0.1 % Normal 0-1 [facility] Comment on above: Performed By: #### L 100.0100, L500.2500 #### [facility] [address] [place], [address] Eosinophils/100 WBC (Bld) 0.0 % Normal 0-5 [facility] Comment on above: Performed By: #### L 100.0100, L500.2500 #### [facility] [address] [place], [address] Erythrocyte distribution width (RBC) [Ratio] 13.4 % Normal 11.6-14.6 [facility] Comment on above: Performed By: #### L 100.0100, L500.2500 #### [facility] [address] [place], [address] Hematocrit (Bld) [Volume fraction] 42.5 % Normal 40-54 [facility] Comment on above: Performed By: #### L 100.0100, L500.2500 #### [facility] [address] [place], [address] Hemoglobin (Bld) [Mass/Vol] 13.8 g/dL Normal 13.0-16.5 [facility] Comment on above: Performed By: #### L 100.0100, L500.2500 #### [facility] [address] [place], [address] IG% 0.700 Normal 0.0-0.9 [facility] Comment on above: Result Comment: IG% - Immature Granulocytes (promyelocytes, myelocytes and metamyelocytes) > 1% indicates that a LEFT SHIFT is Present. Performed By: #### L 100.0100, L500.2500 #### [facility] [address] [place], [address] Lymphocytes/100 WBC (Bld) 4.2 % Low 19-41 [facility] Comment on above: Performed By: #### L 100.0100, L500.2500 #### [facility] [address] [place], [address] MCH (RBC) [Entitic mass] 31.5 pg Normal 27.0-32.0 [facility] Comment on above: Performed By: #### L 100.0100, L500.2500 #### [facility] [address] [place], [address] MCHC (RBC) [Mass/Vol] 32.5 g/dL Normal 32-36 [facility] Comment on above: Performed By: #### L 100.0100, L500.2500 #### [facility] [address] [place], [address] MCV (RBC) [Entitic vol] 97.0 fL High 80-94 [facility] Comment on above: Performed By: #### L 100.0100, L500.2500 #### [facility] [address] [place], [address] Monocytes/100 WBC (Bld) 0.9 % Normal 0-10 [facility] Comment on above: Performed By: #### L 100.0100, L500.2500 #### [facility] [address] [place], [address] Neutrophils/100 WBC (Bld) 94.1 % High 47-70 [facility] Comment on above: Performed By: #### L 100.0100, L500.2500 #### [facility] [address] [place], [address] Nucleated RBC (Bld) [#/Vol] 0 10*3/uL Normal 0-5 [facility] Comment on above: Performed By: #### L 100.0100, L500.2500 #### [facility] [address] [place], [address] Platelet mean volume (Bld) [Entitic vol] 9.2 fL Normal 6.2-12.0 [facility] Comment on above: Performed By: #### L 100.0100, L500.2500 #### [facility] [address] [place], [address] Platelets (Bld) [#/Vol] 242 10*3/uL Normal 150-450 [facility] Comment on above: Performed By: #### L 100.0100, L500.2500 #### [facility] [address] [place], [address] RBC (Bld) [#/Vol] 4.38 10*6/uL Low 4.6-6.2 [facility] Comment on above: Performed By: #### L 100.0100, L500.2500 #### [facility] [address] [place], [address] RDW SD 48.3 fl High 35.1-43.9 [facility] Comment on above: Performed By: #### L 100.0100, L500.2500 #### [facility] [address] [place], [address] WBC (Bld) [#/Vol] 15.3 10*3/uL High 4.4-11.0 [facility] Comment on above: Performed By: #### L 100.0100, L500.2500 #### [facility] [address] [place], [address] Consultation - Intensiviston 11-16-2024 Consultation - Project Asst [facility] Medical Records Department [address] [place] [address] Consultation - Project Asst 11/16/24 0849 MR#: [id number] Acct: [id number] Name: NANETTE MONROY Rep #: [id number] : 1945 79 From: Harsh Manzo DO PCP: Dr. Fernandez Baig DO Status:ADM IN Location: [place] [address] Assessment Plan Assessment/Plan (1) COPD exacerbation: PLAN: Plan RECOMMENDATIONS: 1. Supplemental oxygen to maintain saturations at or above 90%. 2. Obtain echocardiogram. 3. Continue empiric antibiotics, pending culture results. 4. Continue bronchodilators and steroids. 5. Continue appropriate DVT prophylaxis. 6. Encourage incentive spirometer use and mobilize patient as tolerated. IMPRESSIONS: 1. Shortness of breath/chronic hypoxemic respiratory failure/end-stage COPD with exacerbation The patient is followed in the pulmonary medicine clinic due to a history of end-stage COPD on maximum outpatient therapy along with noninvasive ventilator and baseline oxygen requirement of 6 L/min. In addition, the patient is maintained on low-dose prednisone and azithromycin on Tuesday, Tuesday, Tuesday. He continues to experience dyspnea, despite negative acute pulmonary workup. The findings noted on CT imaging of the chest all appear chronic. The patient is on his baseline oxygen requirement of 6 L/min. At this time, we will plan to continue antibiotics, pending sputum culture results. He will be continued on scheduled bronchodilators and steroids. BNP and procalcitonin were unremarkable. Echocardiogram will be obtained to evaluate for any cardiac dysfunction. Otherwise, given the end-stage nature of his lung disease, the patient would be appropriate for referral to palliative care for ongoing assistance with symptom management. 2. History of coronary artery disease status post CABG/hypertension/c hronic tobacco dependency in remission Complicates care, management, recovery and prognosis. Continue supportive care as noted above. This note was generated with [employer] dictation software. It may contain incorrect words, spelling, and punctuation that were not noted in checking the note before signing. HPI Consult Data Date of Consult: 11/16/24 HPI Narrative Reason for Consultation: COPD exacerbation HPI Narrative: The patient is an 79-year-old male, with a history as outlined below, who presented to the emergency department on November 15 with worsening dyspnea. The patient has a known history of end-stage COPD along with chronic hypoxemic respiratory failure, with a baseline oxygen requirement of 5 to 6 L/min. In addition, he is prescribed a noninvasive ventilator at his baseline and is maintained on a triple therapy nebulizer regimen. He is also maintained on azithromycin 3 times weekly and chronic low- dose prednisone therapy. The patient is followed in the pulmonary medicine clinic on an outpatient basis, with his last appointment having occurred in September 2024. On presentation to the emergency department, the patient was documented to be afebrile hemodynamically stable. Laboratory evaluation was notable for a white blood cell count of 20,000. ABG was notable for a pH of 7.43 with a pCO2 of 40 and pO2 of 86. Chemistry profile was unremarkable. COVID, influenza and RSV PCR's were negative. Respiratory viral panel was negative. Strep and urine Legionella antigens were negative. CTA showed no evidence for pulmonary embolism, but did demonstrate bilateral emphysematous changes along with lower lobe bronchiectasis and stable pulmonary nodules. The patient was subsequently placed on antimicrobials, bronchodilators and steroids. He was admitted to the hospital for further management. 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 of other ocular prosthetic devices, implants and grafts, initial encounter Nocturnal hypoxia Tobacco dependence in remission Chronic hypoxemic respiratory failure COPD (chronic obstructive pulmonary disease) Home Medications ???Medication ???Instructions ???Recorded ???Last Taken ???Type aspirin 81 mg tablet,delayed 81 mg PO DAILY@1999 [facility] 0 12/24/19 11/14/24 History release nitroglycerin 0.4 mg sublingual 0.4 mg sublingual Q5-15M PRN chest 03/22/22 Unknown Rx tablet pain #25 tabs Handicap Placcard #1 ea 07/29/22 Unknown Rx albuterol sulfate 2.5 mg/3 mL 2.5 mg (3 mL) inhalation Q4H #180 08/14/24 11/14/24 Rx (0.083 %) solution for nebulization mL albuterol sulfate 90 mcg/actuation 2 puff inhalation (more content not included)... Normal [facility] Echo Complete W/ Contraston 11-16-2024 Echo Complete W/ Contrast [facility] [address] [place] [address] Echo Complete W/ Contrast 11/16/24 1025 MR#: [id number] Acct: [id number] Name: NANETTE MONROY Rep #: [id number] : 1945 79 From: Dario Bar MD Attending Dr: Dr. Rohan Henao MD Status: ADM IN Ordering Dr: Harsh Manzo DO Date: 11/16/24 Location: U Sex: M C Admitted: 11/15/24 Reason For Study Reason For Study: SOB Procedure This was a 2D Doppler, Color Flow transthoracic echocardiogram. The study was technically difficult. Exam performed portable in patient room. Left Ventricle Normal LV size. Mild concentric left ventricular hypertrophy. The LV systolic function is normal. EF is 55 %. Stage 1 diastolic dysfunction. Right Ventricle Normal right ventricle. Atria The left and right atria are normal. Bubble study appears positive for tiny PFO. Mitral Valve Mild (1+) mitral valve insufficiency. Tricuspid Valve Mild tricuspid valve insufficiency. Unable to estimate RV systolic pressure due to insufficient tricuspid regurgitant envelope. Aortic Valve Trisinus/trileaflet aortic valve. Mild (1+) aortic valve insufficiency. Pulmonic Valve The pulmonic valve is not well visualized. Great Vessels Normal sized aortic root. Pericardium/Pleural No pericardial effusion. Medication Performed a rapid injection of agitated mix of 9 cc saline and 1cc air to assess for atrial septal defect. Diluted definity 3.0ml given slow IV push to enhance endocardial definition. MMode/2D Measurements Calculations LVIDd: 4.3 cm IVSd: 1.2 cm Ao root diam: 3.2 cm LVIDs: 2.3 cm LVPWd: 0.74 cm RVDd: 3.4 cm FS: 47.2 % __ LAV(MOD-bp): 24.9 ml LVAd ap4: 22.2 cm2 LVAd ap2: 29.5 cm2 LAV(MOD-bp) Indexed: 12.6 ml/m2 LVLd ap4: 7.4 cm LVLd ap2: 8.2 cm LAV(MOD-sp2): 24.4 ml EDV(MOD-sp4): 57.4 ml EDV(MOD-sp2): 92.7 ml LAV(MOD-sp4): 22.2 ml EDV(sp4-el): 56.8 ml EDV(sp2-el): 90.0 ml LVAs ap4: 13.3 cm2 LVAs ap2: 21.6 cm2 LVLs ap4: 7.0 cm LVLs ap2: 7.4 cm ESV(MOD-sp4): 21.8 ml ESV(MOD-sp2): 55.7 ml ESV(sp4-el): 21.3 ml ESV(sp2-el): 53.5 ml EF(MOD-sp4): 62.0 % EF(MOD-sp2): 39.9 % EF(sp4-el): 62.4 % __ SV(MOD-sp4): 35.6 ml SV(MOD-sp2): 37.0 ml SV(sp4-el): 35.5 ml SI(MOD-sp4): 18.0 ml/m2 SI(MOD-sp2): 18.7 ml/m2 __ LA A4 area: 12.5 cm2 LA dimension(2D): 3.4 cm RA A4 area: 15.7 cm2 __ TAPSE: 1.2 cm Time Measurements MV dec time: 0.40 sec Doppler Measurements Calculations MV E max nahun: 61.0 cm/sec Lat Peak E' Nahun: 10.7 cm/sec Med Peak E' Nahun: 10.7 cm/sec MV A max nahun: 90.5 cm/sec E/E' lat: 5.7 E/E' med: 5.7 MV E/A: 0.67 __ MV dec slope: 151.2 cm/sec2 Ao V2 max: 170.3 cm/sec LV V1 max: 125.9 cm/sec Ao max P.6 mmHg LV V1 max P.3 mmHg Ao V2 mean: 111.4 cm/sec LV V1 mean P.6 mmHg Ao mean P.7 mmHg LV V1 mean: 88.0 cm/sec Ao V2 VTI: 28.9 cm LV V1 VTI: 24.5 cm AV (velocity ratio): 0.85 __ PA V2 max: 133.3 cm/sec ECHO/Echo Complete W/ Contrast Interpretation Summary The study was technically difficult. Mild concentric left ventricular hypertrophy. The LV systolic function is normal. EF is 55 %. Stage 1 diastolic dysfunction. Bubble study appears positive for tiny PFO. Mild (1+) aortic valve insufficiency. Trivial to mild mitral and tricuspid valve insufficiency. __ Ordering Physician: Harsh Manzo Referring Physician: Fernandez Baig Performed By: Gretchen Sauer RDCS 11/16/24 1146 Date Dario Bar MD CC: Dr. Harsh Manzo DO; Dr. Rohan Henao MD; Dr. 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 [address] Echo Complete W/ Contrast 11/16/24 1025 MR#: [id number] Acct: [id number] Name: NANETTE MONROY Rep #:[id number] : 1945 79 From: Dario Bar MD Attending Dr: Dr. Rohan Henao MD Status: ADM IN Ordering Dr: Harsh Manzo DO Date: 04/04 Location: [facility] Sex: M C Admitted: 11/15/24 Reason For Study Reason For Study: SOB Procedure This was a 2D Doppler, Color Flow transthoracic echocardiogram. The study was technically difficult. Exam performed portable in patient room. Left Ventricle Normal LV size. Mild concentric left ventricular hypertrophy. The LV systolic function is normal. EF is 55 %. Stage 1 diastolic dysfunction. Right Ventricle Normal right ventricle. Atria The left and right atria are normal. Bubble study appears positive for tiny PFO. Mitral Valve Mild (1+) mitral valve insufficiency. Tricuspid Valve Mild tricuspid valve insufficiency. Unable to estimate RV systolic pressure due to insufficient tricuspid regurgitant envelope. Aortic Valve Trisinus/trileaflet aortic valve. Mild (1+) aortic valve insufficiency. Pulmonic Valve The pulmonic valve is not well visualized. Great Vessels Normal sized aortic root. Pericardium/Pleural No pericardial effusion. Medication Performed a rapid injection of agitated mix of 9 cc saline and 1cc air to assessfor atrial septal defect. Diluted definity 3.0ml given slow IV push to enhance endocardial definition. MMode/2D Measurements & Calculations LVIDd: 4.3 cm IVSd: 1.2 cm Ao root diam: 3.2 cm LVIDs: 2.3 cm LVPWd: 0.74 cm RVDd: 3.4 cm FS: 47.2 % ____ LAV(MOD-bp): 24.9 ml LVAd ap4: 22.2 cm2 LVAd ap2: 29.5 cm2 LAV(MOD-bp) Indexed: 12.6 ml/m2 LVLd ap4: 7.4 cm LVLd ap2: 8.2 cm LAV(MOD-sp2): 24.4 ml EDV(MOD-sp4): 57.4 ml EDV(MOD-sp2): 92.7 ml LAV(MOD-sp4): 22.2 ml EDV(sp4-el): 56.8 ml EDV(sp2-el): 90.0 ml LVAs ap4: 13.3 cm2 LVAs ap2: 21.6 cm2 LVLs ap4: 7.0 cm LVLs ap2: 7.4 cm ESV(MOD-sp4): 21.8 ml ESV(MOD-sp2): 55.7 ml ESV(sp4-el): 21.3 ml ESV(sp2-el): 53.5 ml EF(MOD-sp4): 62.0 % EF(MOD-sp2): 39.9 % EF(sp4-el): 62.4 % ____ SV(MOD-sp4): 35.6 ml SV(MOD-sp2): 37.0 ml SV(sp4-el): 35.5 ml SI(MOD-sp4): 18.0 ml/m2 SI(MOD-sp2): 18.7 ml/m2 __ LA A4 area: 12.5 cm2 LA dimension(2D): 3.4 cm RA A4 area: 15.7 cm2 __ TAPSE: 1.2 cm Time Measurements MV dec time: 0.40 sec Doppler Measurements & Calculations MV E max nahun: 61.0 cm/sec Lat Peak E' Nahun: 10.7 cm/sec Med Peak E' Nahun: 10.7 cm/sec MV A max nahun: 90.5 cm/sec E/E' lat: 5.7 E/E' med: 5.7 MV E/A: 0.67 __ MV dec slope: 151.2 cm/sec2 Ao V2 max: 170.3 cm/sec LV V1 max: 125.9 cm/sec Ao max P.6 mmHg LV V1 max P.3 mmHg Ao V2 mean: 111.4 cm/sec LV V1 mean P.6 mmHg Ao mean P.7 mmHg LV V1 mean: 88.0 cm/sec Ao V2 VTI: 28.9 cm LV V1 VTI: 24.5 cm AV (velocity ratio): 0.85 ____ PA V2 max: 133.3 cm/sec ECHO/Echo Complete W/ Contrast Interpretation Summary The study was technically difficult. Mild concentric left ventricular hypertrophy. The LV systolic function is normal. EF is 55 %. Stage 1 diastolic dysfunction. Bubble study appears positive for tiny PFO. Mild (1+) aortic valve insufficiency. Trivial to mild mitral and tricuspid valve insufficiency. __ Ordering Physician: Harsh Manzo Referring Physician: Fernandez Baig Performed By: Gretchen Sauer RDCS 11/16/24 1146 Date _ Dario Bar MD CC: Dr. Harsh Manzo DO; Dr. Rohan Henao MD; Dr. Fernandez Baig DO ~ Date Dictated: 11/16/24 1025 Date Transcribed: 11/16/24 1146 Embedded Linux Engineer: Signed [facility] Work Phone: Gram Stainon 11-16-2024 GS Acceptable Specimen? Yes (<25 Epithelial cells per/lpf) Gram Stain 4+ White Blood Cells 4+ Gram negative rods 4+ Gram positive rods 1+ Epithelial cells 1+ Gram positive cocci Normal [facility] Comment on above: Performed By: #### L 500.4685 #### [facility] [address] [place], [address] L503.7505on 11-16-2024 Natriuretic peptide B (Bld) [Mass/Vol] 503 pg/mL Normal <=1800 [facility] Comment on above: Result Comment: Hear t Failure Unlikely: < 300 pg/mL Heart Failure Likely < 50 Years: > 450 pg/mL 50-75 Years: > 900 pg/mL >75 Years: > 1800 pg/mL Performed By: #### L 509.7001, L503.7505 #### [facility] [address] [place], [place], [address] L509.7001on 11-16-2024 Procalcitonin 0.06 ng/mL Normal <=0.10 [facility] Comment on above: Result Comment: Inte rpretation: <0.10-0.25 ng/mL: Antibiotic therapy discouraged. Bacterial infection unlikely. 0.25-0.50 ng/mL: Antibiotic therapy encouraged. Bacterial infection possible. >0.50 ng/mL: Antibiotic therapy strongly encouraged. Suggestive of presence of bacterial infection. PCT should always be interpreted in the clinical context of the patient. Therefore, clinicians should use the PCT results in conjunction with other laboratory findings and clinical signs of the patient. Performed By: #### L 509.7001, L503.7505 #### [facility] [address] [place], [place], [address] Natriuretic peptide.B prohor bhavya N-Terminal [Mass/volume] in Serum or PlasmaOrdered By: Harsh Manzo on 11-16-2024 Natriuretic peptide.B prohormone N-Terminal [Mass/Vol] 503 pg/mL <1800 [facility] Comment on above: Heart Failure Unlike ly: < 300 pg/mLHeart Failure Likely< 50 Years: > 450 pg/mL50-75 Years: > 900 pg/mL>75 Years: > 1800 pg/mL Procalcitonin [Mass/volume] in Serum or Plasma by ImmunoassayOrdered By: Harsh Manzo on 11-16-2024 Procalcitonin IA [Mass/Vol] 0.06 ng/mL <0.11 [facility] Comment on above: Interpretation:<0.10 -0.25 ng/mL: Antibiotic therapy discouraged. Bacterial infection unlikely.0.25-0.50 ng/mL: Antibiotic therapy encouraged. Bacterial infection possible.>0.50 ng/mL: Antibiotic therapy strongly encouraged. Suggestive of presence of bacterial infection.PCT should always be interpreted in the clinical context of the patient. Therefore, clinicians should use the PCT results in conjunction with other laboratory findings and clinical signs of the patient. Absolute lymphocyte countOrd ered By: Beau Costa on 11-15-2024 Lymphocytes Auto (Unsp spec) [#/Vol] 1.35 10*3/uL 0.83-4.51 [facility] Absolute neutrophil countOrd ered By: Beau Costa on 11-15-2024 Neutrophils (Bld) [#/Vol] 17.3 10*3/uL High 2.0-7.7 [facility] Anion gap in Serum or Plasma Ordered By: Beau Costa on 11-15-2024 Anion gap [Moles/Vol] 12 mmol/L 5-15 [facility] Assessment of wrist artery p atency prior to arterial punctureOrdered By: Beau Costa on 11-15-2024 Arterial patency Wrist artery --pre arterial puncture Positive [facility] Automated lymphocyte count a s percentage of total leukocytesOrdered By: Beau Costa on 11-15-2024 Lymphocytes/100 WBC Auto (Unsp spec) 6.7 % Low 19-41 [facility] BUN/creatinine ratioOrdered By: Beau Costa on 11-15-2024 Urea nitrogen/Creatinine [Mass ratio] 14.0 mg/mg - [facility] Basic Metabolic Profile (BMP )on 11-15-2024 BUN/CRE 14.0 RATIO Normal - [facility] Comment on above: Performed By: #### L 500.2500 #### [facility] [address] [facility] [address] Calcium [Mass/Vol] 8.8 mg/dL Normal 7.6-11.0 [facility] Comment on above: Performed By: #### L 500.2500 #### [facility] [address] [place], [address] Chloride [Moles/Vol] 102 mmol/L Normal 98-108 [facility] Comment on above: Performed By: #### L 500.2500 #### [facility] [address] [place], [address] CO2 [Moles/Vol] 24.4 mmol/L Normal 21.0-32.0 [facility] Comment on above: Performed By: #### L 500.2500 #### [facility] [address] [place], [address] Creatinine [Mass/Vol] 0.87 mg/dL Normal 0.70-1.20 [facility] Comment on above: Performed By: #### L 500.2500 #### [facility] [address] [place], [address] GAP 12 Normal 5-15 [facility] Comment on above: Performed By: #### L 500.2500 #### [facility] [address] [place], [address] GFR/1.73 sq M.predicted among non-blacks MDRD (S/P/Bld) [Vol rate/Area] 87 mL/min/{1.73_m2} Normal >60 [facility] Comment on above: Result Comment: mL/m in/1.73m2 CKD-EPI Creatinine Equation (2020) Performed By: #### L 500.2500 #### [facility] [address] [place], [address] Glucose [Mass/Vol] 116 mg/dL High 70-99 [facility] Comment on above: Performed By: #### L 500.2500 #### [facility] [address] [place], [address] Potassium [Moles/Vol] 4.3 mmol/L Normal 3.3-5.1 [facility] Comment on above: Result Comment: Hemo lysis present, Results??could be affected. ?? Performed By: #### L 500.2500 #### [facility] [address] [place], [address] Sodium [Moles/Vol] 139 mmol/L Normal 133-145 [facility] Comment on above: Performed By: #### L 500.2500 #### [facility] [address] [place], [address] Urea nitrogen [Mass/Vol] 12 mg/dL Normal 4-19 [facility] Comment on above: Performed By: #### L 500.2500 #### [facility] [address] [place], [address] Basophil percentageOrdered B y: Beau Costa on 11-15-2024 Basophils/100 WBC (Bld) 0.2 % 0-1 [facility] TEST Positive Normal [facility] Comment on above: Performed By: #### L 9000.0800 #### [facility] [address] [place], [address] Base excess Calc (Bld) [Moles/Vol] 2 mmol/L Normal -2 to +2 [facility] Comment on above: Performed By: #### L 9000.0800 #### [facility] [address] [place], [address] Blood Gas Type ART Normal [facility] Comment on above: Performed By: #### L 9000.0800 #### [facility] [address] [place], [address] CO2 [Moles/Vol] 28 mmol/L Normal [facility] Comment on above: Performed By: #### L 9000.0800 #### [facility] [address] [place], [address] FI02 5.0 Normal [facility] Comment on above: Performed By: #### L 9000.0800 #### [facility] [address] [place], [address] HCO3 (Bld) [Moles/Vol] 26.6 mmol/L High 22-26 [facility] Comment on above: Performed By: #### L 9000.0800 #### [facility] [address] [place], [address] Mode Not entered Normal [facility] Comment on above: Performed By: #### L 9000.0800 #### [facility] [address] [place], [address] O2 Delivery Dev Cannula Normal [facility] Comment on above: Performed By: #### L 9000.0800 #### [facility] [address] [place], [address] pCO2 39.9 mmHg Normal 35-45 [facility] Comment on above: Performed By: #### L 9000.0800 #### [facility] [address] [place], [address] pH (Bld) 7.43 [pH] Normal 7.35-7.45 [facility] Comment on above: Performed By: #### L 9000.0800 #### [facility] [address] [place], [address] PO2 86 mmHG Normal 75-100 [facility] Comment on above: Performed By: #### L 9000.0800 #### [facility] [address] [place], [address] SITE R Radial Normal [facility] Comment on above: Performed By: #### L 9000.0800 #### [facility] [address] [place], [address] SO2 97 Normal 95-99 [facility] Comment on above: Performed By: #### L 9000.0800 #### [facility] [address] [place], [address] Blood base excess determinat ionOrdered By: Beau Costa on 11-15-2024 Base excess Calc (BldV) [Moles/Vol] 2 mmol/L -2-2 [facility] Blood bicarbonate measuremen tOrdered By: Beau Costa on 11-15-2024 HCO3 (Bld) [Moles/Vol] 26.6 mmol/L High 22-26 [facility] CBC W/Diff, Automatedon 05-0 Absolute Lymph 1.35 X10 3/uL Normal 0.83-4.51 [facility] Comment on above: Performed By: #### L 500.2500 #### [facility] [address] [place], [address] Absolute Neut 17.3 X10 3/uL High 2.0-7.7 [facility] Comment on above: Performed By: #### L 500.2500 #### [facility] [address] [place], [address] Basophils/100 WBC (Bld) 0.2 % Normal 0-1 [facility] Comment on above: Performed By: #### L 500.2500 #### [facility] [address] [place], [address] Eosinophils/100 WBC (Bld) 0.2 % Normal 0-5 [facility] Comment on above: Performed By: #### L 500.2500 #### [facility] [address] [place], [address] Erythrocyte distribution width (RBC) [Ratio] 13.5 % Normal 11.6-14.6 [facility] Comment on above: Performed By: #### L 500.2500 #### [facility] [address] [place], [address] Hematocrit (Bld) [Volume fraction] 42.3 % Normal 40-54 [facility] Comment on above: Performed By: #### L 500.2500 #### [facility] [address] [place], [address] Hemoglobin (Bld) [Mass/Vol] 14.0 g/dL Normal 13.0-16.5 [facility] Comment on above: Performed By: #### L 500.2500 #### [facility] [address] [place], [address] IG% 0.400 Normal 0.0-0.9 [facility] Comment on above: Result Comment: IG% - Immature Granulocytes (promyelocytes, myelocytes and metamyelocytes) > 1% indicates that a LEFT SHIFT is Present. Performed By: #### L 500.2500 #### [facility] [address] [place], [address] Lymphocytes/100 WBC (Bld) 6.7 % Low 19-41 [facility] Comment on above: Performed By: #### L 500.2500 #### [facility] [address] [place], [address] MCH (RBC) [Entitic mass] 31.6 pg Normal 27.0-32.0 [facility] Comment on above: Performed By: #### L 500.2500 #### [facility] [address] [place], [address] MCHC (RBC) [Mass/Vol] 33.1 g/dL Normal 32-36 [facility] Comment on above: Performed By: #### L 500.2500 #### [facility] [address] [place], [address] MCV (RBC) [Entitic vol] 95.5 fL High 80-94 [facility] Comment on above: Performed By: #### L 500.2500 #### [facility] [address] [place], [address] Monocytes/100 WBC (Bld) 6.1 % Normal 0-10 [facility] Comment on above: Performed By: #### L 500.2500 #### [facility] [address] [place], [address] Neutrophils/100 WBC (Bld) 86.4 % High 47-70 [facility] Comment on above: Performed By: #### L 500.2500 #### [facility] [address] [place], [address] Nucleated RBC (Bld) [#/Vol] 0 10*3/uL Normal 0-5 [facility] Comment on above: Performed By: #### L 500.2500 #### [facility] [address] [place], [address] Platelet mean volume (Bld) [Entitic vol] 9.4 fL Normal 6.2-12.0 [facility] Comment on above: Performed By: #### L 500.2500 #### [facility] [address] [place], [address] Platelets (Bld) [#/Vol] 221 10*3/uL Normal 150-450 [facility] Comment on above: Performed By: #### L 500.2500 #### [facility] [address] [place], [address] RBC (Bld) [#/Vol] 4.43 10*6/uL Low 4.6-6.2 [facility] Comment on above: Performed By: #### L 500.2500 #### [facility] [address] [place], [address] RDW SD 47.7 fl High 35.1-43.9 [facility] Comment on above: Performed By: #### L 500.2500 #### [facility] [address] [place], [address] WBC (Bld) [#/Vol] 20.1 10*3/uL High 4.4-11.0 [facility] Comment on above: Performed By: #### L 500.2500 #### [facility] [address] [place], [address] CTA Chest W/WO Contraston CTA Chest W/WO Contrast [facility] Services [address] [place], [place] [address] CTA Chest W/WO Contrast MR#: [id number] Acct: [id number] Name: NANETTE MONROY Rep #: [id number] : 1945 M 79 From: Thom Montes MD PCP: Dr. Fernandez Baig, Status: REG ER Study: CTA Chest W/WO Contrast Date of Exam: 11/15/24 Exam# [id number] Ordering Dr: Beau Costa DO PROCEDURE: CTA CHEST WITH CONTRAST 11/15/2024 REASON FOR EXAM: SOB, ELEVATED DIMER TECHNIQUE: CTA imaging of the chest with intravenous contrast. Contiguous axial scans of 1.25 mm slice thicknesses Sagittal and coronal multiplanar and multisequence images were obtained. One or more dose reduction techniques were used (e.g., Automated exposure control, adjustment of the mA and/or kV according to patient size, use of iterative reconstruction technique). CONTRAST: Isovue 370 VOLUME: 90 mL Contiguous axial scans of mm slice thicknesses. Sagittal and coronal reconstruction images were obtained. One or more dose reduction techniques were used (e.g., automated exposure control, adjustment of mA and/or kv according to patient size, use of iterative reconstruction technique). RADIATION DOSE SUMMARY: DLP: 430.93 mGycm COMPARISON: Chest radiograph dated 12/24/2019 FINDINGS: Lungs and Airways: Bilateral centrilobular emphysematous changes are noted. Bronchiectatic changes along with bronchial thickening in the lower lobes. Areas of ground-glass opacification are also scattered throughout the lower lobes. 0.7 cm noncalcified micronodule in the right upper lobe, axial image 107. A 0.7 cm noncalcified micronodule in the superior segment of the left lower lobe, axial image 107. Old healed granulomatous changes in the right lower lobe. Pleura: No pleural effusion. No pneumothorax. Heart: Normal heart size. No pericardial effusion. Pericardium: No thickening. Coronary arteries: Mild calcifications. Thoracic Aorta: No thoracic aortic aneurysm or dissection. Pulmonary Vessels: No large central filling defects. Mediastinum: No mediastinal hilar or axillary lymphadenopathy. Thyroid:No nodules.. Upper Abdomen: Visualized portions of the upper abdominal viscera are unremarkable. Bones: Mild multilevel spondylosis. Median sternotomy wires are noted. CT/CTA Chest W/WO Contrast IMPRESSION: No signs of pulmonary embolism. Centrilobular emphysematous changes. Ground-glass opacities are scattered throughout the lower lobes. Can not exclude mild inflammation. Bronchiectatic changes along with bronchial thickening primarily in the lower lobes. Reading Location: [facility] CC: Dr. Fernandez Baig DO; Dr. Beau Costa DO Embedded Linux Engineer: Signed Normal [facility] Carbon dioxide, total [Moles /volume] in Central venous bloodOrdered By: Beau Costa on 11-15-2024 CO2 [Moles/Vol] 24.4 mmol/L 21.0-32.0 [facility] Chest PA and Lateralon 11-15 Chest PA and Lateral [facility] Imaging Services [address] [place] [id number] Chest PA and Lateral MR#: [id number] Acct: [id number] Name: NANETTE MONROY Rep #: [id number] : 1945 M 79 From: Thom Montes MD PCP: Dr. Fernandez Baig DO Status: [facility] ER Study: Chest PA and Lateral Date of Exam: 11/15/24 Exam# [id number] Ordering Dr: Beau Costa DO PROCEDURE: CHEST PA AND LATERAL 11/15/2024 REASON FOR EXAM: COUGH , SOB TECHNIQUE: Frontal and lateral views of the chest. COMPARISON: 12/24/2019 FINDINGS: Lungs: Lungs clear of pneumonia and congestion. Parenchymal scarring and/or subsegmental atelectasis in the left lung base. Pleura: No pleural effusions, thickening, or pneumothorax. Heart: Normal in size and configuration. Mediastinum/Roseline: Unremarkable. Great vessels: Unremarkable. Bones/soft tissues: Unremarkable. Median sternotomy wires. Cardiac monitoring leads overlie the chest wall. RAD/Chest PA and Lateral IMPRESSION: No active cardiopulmonary disease. Parenchymal scarring and/or subsegmental atelectasis, left lower lobe. Reading Location: [facility] CC: Dr. Fernandez Baig DO; Dr. Beau Costa DO Embedded Linux Engineer: Signed Normal [facility] Chloride assayOrdered By: Rick Costa on 11-15-2024 Chloride [Moles/Vol] 102 mmol/L 98-108 [facility] D-Dimer Quantitative (DVT/PE )on 11-15-2024 D-DIMER QUANT 0.90 FEU/ug/m Invalid Interpretation Code 0.27-0.49 [facility] Comment on above: Result Comment: D-Di lenora ELEVATED (>0.49): Additional studies and clinical assessments are indicated to conclude diagnosis of: Deep Vein Thrombosis (DVT) or Pulmonary Embolism (PE) CRITICAL VALUE CALLED TO ALTAGRACIA 11/15/24 1101 Bree Simental. RESULTS READ BACK BY SAME. Performed By: #### L 500.2500 #### [facility] [address] [facility] [place], [address] Emergency Department Summary on 11-15-[address] [facility] Medical Records Department [address] [place] [address] Emergency Department Summary 11/15/24 MR#: [id number] Acct: [id number] Name: NANETTE MONROY Rep #: [id number] : 1945 79 From: Beau Lane PCP: Dr. Fernandez Baig DO Status:REG ER Location: ED HPI History of Present Illness Chief Complaint: Shortness of Breath Informant: patient and spouse/S.O. Narrative Narrative: Sent to ED after discussion with pulmonary office. History of COPD chronic oxygenation 4 L at rest 6 L with exertion. Remote tobacco history. 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 He states had cough shortness of breath 2 months ago seen in pulmonary office was started on prednisone daily at 10 mg. He states he is on antibiotics 3 days a week Tuesday with a Fridays. Each week symptoms have worsened. Wheezing at home. No diabetes. No fever or chills. Feels chest heaviness. Three- vessel CABG 2001 baby aspirin daily. Denies vomiting diarrhea denies urinary symptoms. He had no recent travel or surgeries prior symptoms starting. No history of PE or DVT. 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, implants and grafts, initial encounter Nocturnal hypoxia Tobacco dependence in remission Chronic hypoxemic respiratory failure COPD (chronic obstructive pulmonary disease) Home Medications ???Medication ???Instructions ???Recorded ???Last Taken ???Type aspirin 81 mg tablet,delayed 81 mg PO DAILY@1999 heart health 0 12/24/19 11/14/24 History release nitroglycerin 0.4 mg sublingual 0.4 mg sublingual Q5-15M PRN chest 03/22/22 Unknown Rx tablet pain #25 tabs Handicap Placcard #1 ea 07/29/22 Unknown Rx albuterol sulfate 2.5 mg/3 mL 2.5 mg (3 mL) inhalation Q4H #180 08/14/24 11/14/24 Rx (0.083 %) solution for nebulization mL albuterol sulfate 90 mcg/actuation 2 puff inhalation Q4H PRN Unknown Rx aerosol inhaler shortness of breath or wheezing #8.5 grams arformoterol 15 mcg/2 mL solution 15 mcg (2 mL) inhalation BID #120 08/14/24 11/14/24 Rx for nebulization (Brovana) mL budesonide 0.5 mg/2 mL suspension 0.5 mg (2 mL) inhalation BID #120 08/14/24 11/14/24 Rx for nebulization mL guaifenesin 1,200 mg tablet, 1,200 mg PO Q12H #60 tabs 08/14/24 11/14/24 Rx extended release 12 hr metoprolol succinate 25 mg 12.5 mg (1/2 x 25 mg) PO DAILY #45 08/20/24 11/14/24 Rx tablet,extended release 24 hr TABLETS rosuvastatin 20 mg tablet 20 mg PO DAILY #90 tabs 08/20/24 0 11/14/24 Rx ipratropium 0.5 mg-albuterol 3 mg 3 ml inhalation DAILY 09/11/24 History (2.5 mg base)/3 mL nebulization soln isosorbide mononitrate 30 mg 30 mg PO DAILY #90 tabs 09/11/24 0 11/14/24 Rx tablet,extended release 24 hr losartan 25 mg tablet 25 mg PO BID #180 tabs 09/11/24 Rx prednisone 10 mg tablet 10 mg PO DAILY 11/15/24 11/14/24 H istory Allergy/AdvReac Type Severity Reaction Status Date / Time tiotropium (From Spiriva AdvReac Severe Decreased Verified 11/15/24 10:01 with HandiHaler) Urination cyanocobalamin (vitamin B12) AdvReac Other Verified 11/15/24 10:01 Family History Sister CAD (coronary artery disease) Hx of CABG Sister Breast cancer Brother COPD (chronic obstructive pulmonary disease) Surgical History Presence of aortocoronary bypass graft ( 08/01/01) History of cochlear implant Postsurgical percutaneous transluminal coronary angioplasty (PTCA) status ( 1989) Aortocoronary bypass status ( 08/01/01) History of vasectomy Social History Smoking Status: Former smoker how long ago did patient quit smokin + years ago second hand exposure: No alcohol intake: current alcohol intake frequency: a few times a week substance use type: does not use caffeine: Yes ROS ROS ED Constitutional Constitutional ED: Denies chills, fever(s) or sweats ENT ENT ED: Denies sore throat Cardiovascular Cardiovascular: Reports chest pain; Denies leg edema, palpitations or racing heartbeat Respiratory/Chest Respiratory/Chest: Reports cough, dyspnea and dyspnea on exertion Gastrointestinal Gastrointestinal: Denies abdominal pain, diarrhea, nausea or vomiting Genitourinary Genitourinary ED: Denies dys (more content not included)... Normal [facility] Eosinophil percentageOrdered By: Beau Costa on 11-15-2024 Eosinophils/100 WBC (Bld) 0.2 % 0-5 [facility] Erythrocyte distribution wid th ratioOrdered By: Beau Costa on 11-15-2024 Erythrocyte distribution width (RBC) [Ratio] 13.5 % 11.6-14.6 [facility] Erythrocyte distribution wid th standard deviationOrdered By: Beau Costa on 11-15-2024 Erythrocyte distribution width (RBC) [Ratio] 47.7 fl High 35.1-43.9 [facility] Glomerular filtration rate ( GFR) estimation/1.73 sq m using serum, plasma, or whole bOrdered By: Beau Costa on 11-15-2024 GFR/1.73 sq M.predicted among non-blacks MDRD (S/P/Bld) [Vol rate/Area] 87 mL/min/{1.73_m2} >60 [facility] Comment on above: mL/min/1.73m2 CKD-EP I Creatinine Equation (2020) Gram stainOrdered By: Wilfredo Henao on 11-15-2024 Microscopic observation Gram stain Nom (Unsp spec) [facility] H AND P Exam - [facility] 11-15-2024 H&P Exam - Hospitalist [facility] Medical Records Department [address] [place] [address] H P Exam - Hospitalist 11/15/24 1345 MR#: [id number] Acct: [id number] Name: NANETTE MONROY Rep #: [id number] : 1945 79 From: Rohan Henao MD PCP: Dr. Fernandez Baig, DO Status:ADM IN Location: [facility] [place] PN872-1 HPI - General General Date of Admission: 11/15/24 Date of Service: 11/15/24 Chief Complaint: SOB worsening for 2 months. 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 Patient was on 4 L of home oxygen at rest but for last 2 months he has been using 6 L at rest. Patient was seen in the pulmonary office 2 months ago and is on prednisone 10 mg and antibiotic 3 times a week but is still did not improve. In ED, patient is tachypneic 30 to 34/min and on 5 L oxygen. He only had IV Solu-Medrol 125 mg in ED. Chest CTA was done and is discussed assessment plan. 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, implants and grafts, initial encounter Nocturnal hypoxia Tobacco dependence in remission Chronic hypoxemic respiratory failure COPD (chronic obstructive pulmonary disease) Home Medications ???Medication ???Instructions ???Recorded ???Last Taken ???Type aspirin 81 mg tablet,delayed 81 mg PO DAILY@1999 heart health 0 12/24/19 11/14/24 History release nitroglycerin 0.4 mg sublingual 0.4 mg sublingual Q5-15M PRN chest 03/22/22 Unknown Rx tablet pain #25 tabs Handicap Placcard #1 ea 07/29/22 Unknown Rx albuterol sulfate 2.5 mg/3 mL 2.5 mg (3 mL) inhalation Q4H #180 08/14/24 11/14/24 Rx (0.083 %) solution for nebulization mL albuterol sulfate 90 mcg/actuation 2 puff inhalation Q4H PRN Unknown Rx aerosol inhaler shortness of breath or wheezing #8.5 grams arformoterol 15 mcg/2 mL solution 15 mcg (2 mL) inhalation BID #120 08/14/24 11/14/24 Rx for nebulization (Brovana) mL budesonide 0.5 mg/2 mL suspension 0.5 mg (2 mL) inhalation BID #120 08/14/24 11/14/24 Rx for nebulization mL guaifenesin 1,200 mg tablet, 1,200 mg PO Q12H #60 tabs 08/14/24 11/14/24 Rx extended release 12 hr metoprolol succinate 25 mg 12.5 mg (1/2 x 25 mg) PO DAILY #45 08/20/24 11/14/24 Rx tablet,extended release 24 hr TABLETS rosuvastatin 20 mg tablet 20 mg PO DAILY #90 tabs 08/20/24 0 11/14/24 Rx ipratropium 0.5 mg-albuterol 3 mg 3 ml inhalation DAILY 09/11/24 History (2.5 mg base)/3 mL nebulization soln isosorbide mononitrate 30 mg 30 mg PO DAILY #90 tabs 09/11/24 0 11/14/24 Rx tablet,extended release 24 hr losartan 25 mg tablet 25 mg PO BID #180 tabs 09/11/24 Rx prednisone 10 mg tablet 10 mg PO DAILY 11/15/24 11/14/24 H istory Allergy/AdvReac Type Severity Reaction Status Date / Time tiotropium (From Spiriva AdvReac Severe Decreased Verified 11/15/24 10:01 with HandiHaler) Urination cyanocobalamin (vitamin B12) AdvReac Other Verified 11/15/24 10:01 Family History Sister CAD (coronary artery disease) Hx of CABG Sister Breast cancer Brother COPD (chronic obstructive pulmonary disease) Surgical History Presence of aortocoronary bypass graft ( 08/01/01) History of cochlear implant Postsurgical percutaneous transluminal coronary angioplasty (PTCA) status ( 1989) Aortocoronary bypass status ( 08/01/01) History of vasectomy Social History Smoking Status: Former smoker how long ago did patient quit smokin + years ago second hand exposure: No alcohol intake: current alcohol intake frequency: a few times a week substance use type: does not use caffeine: Yes ROS ROS Narrative Constitutional: Reports fatigue and weakness. No fever. No dyspnea at rest. HEENT: Right ear cochlear implant. Left hearing aid. Reports systems reviewed and no addt'l complaints, except as documented Respiratory/Chest: Hide described in HPI. CVS: Denies chest pressure. Intermittent pleuritic chest pain on coughing/dyspnea. CAD s/p three- vessel CABG Gastrointestinal: Denies coffee ground emesis, hematemesis or vomiting Genitourinary: Denies burning urination or new urinary tract symptoms Musculoskeletal: Denies acute joint pain or limited range of motion. No acute injury Neurologic (more content not included)... Normal [facility] Hematocrit Auto (Bld) [Volum e fraction]Ordered By: Beau Costa on 11-15-2024 Hematocrit (Bld) [Volume fraction] 42.3 % 40-54 [facility] Hemoglobin measurementOrdere d By: Beau Costa on 11-15-2024 Hemoglobin (Bld) [Mass/Vol] 14.0 g/dL 13.0-16.5 [facility] Immature granulocytes/100 WB C Auto (Bld)Ordered By: Beau Costa on 11-15-2024 Immature granulocytes/100 WBC (Bld) 0.400 % 0.0-0.9 [facility] Comment on above: IG% - Immature Granu locytes (promyelocytes, myelocytes and metamyelocytes) > 1% indicates that a LEFT SHIFT is Present. L499.0042on 11-15-2024 Trop T High Sen 21 ng/L Normal <=22 [facility] Comment on above: Performed By: #### L 500.2500 #### [facility] [address] [place], [address] L499.0043on 11-15-2024 Trop T High Sen 20 ng/L Normal <=22 [facility] Comment on above: Performed By: #### L 499.0043 #### [facility] [address] [place], [address] L501.4021on 11-15-2024 Trop T High Sen 25 ng/L High <=22 [facility] Comment on above: Performed By: #### L 509.7001, L503.1195 #### [facility] [address] [place], [address] Legionella Antigen Urineon 0 11-15-2024 LEGU Comments: Only Recommended for severe cases of pneumonia Only Recommended for severe cases of pneumonia URINE, CLEAN CATCH Legionella Antigen result interpretation: L pneumo Ag Ur Ql Negative Presumptive negative for Legionella pneumophila serogroup 1 antigen in urine, suggesting no recent or current infection. Legionella Ag, Urine Negative (See interpretation below) Normal [facility] Comment on above: Performed By: #### L 509.7001, L503.7505 #### [facility] [address] [place], [place], [address] M100.019on 11-15-2024 M100.019 Negative Normal [facility] Comment on above: Performed By: #### L 500.2500 #### [facility] [address] [place], [address] MCV (mean corpuscular volume ) determinationOrdered By: Beau Costa on 11-15-2024 MCV (RBC) [Entitic vol] 95.5 fL High 80-94 [facility] Magnesiumon 11-15-2024 Magnesium [Mass/Vol] 2.1 mg/dL Normal 1.5-2.2 [facility] Comment on above: Performed By: #### L 501.5200 #### [facility] [address] [facility] [place], [place], [id number] Magnesium measurement (mass/ volume)Ordered By: Rohan Henao on 11-15-2024 Magnesium (Unsp spec) [Mass/Vol] 2.1 mg/dL 1.5-2.2 [facility] Mean corpuscular hemoglobin (MCH) determinationOrdered By: Beau Costa on 11-15-2024 MCH (RBC) [Entitic mass] 31.6 pg 27.0-32.0 [facility] Mean corpuscular hemoglobin concentration (MCHC) determinationOrdered By: Beau Costa on 11-15-2024 MCHC (RBC) [Mass/Vol] 33.1 g/dL 32-36 [facility] Mean platelet volume determi nationOrdered By: Beau Costa on 11-15-2024 Platelet mean volume (Bld) [Entitic vol] 9.4 fL 6.2-12.0 [facility] Measurement, pHOrdered By: Shahid Costa on 11-15-2024 pH (Unsp spec) 7.43 [pH] 7.35-7.45 [facility] Microbial respiratory cultur eOrdered By: Roahn Henao on 11-15-2024 Microorganism identified Cx Nom (Unsp spec) Streptococcus pneumoniae Abnormal [facility] Microorganism identified Cx Nom (Unsp spec) Pseudomonas aeruginosa Abnormal [facility] Monocyte percentageOrdered B y: Beau Costa on 11-15-2024 Monocytes/100 WBC (Bld) 6.1 % 0-10 [facility] Neutrophil percentageOrdered By: Beau Costa on 11-15-2024 Neutrophils/100 WBC (Bld) 86.4 % High 47-70 [facility] No Panel InformationOrdered By: Beau Costa on 11-15-2024 Blood Gas Sample Site R Radial [facility] Blood Gas Specimen Type ART W [facility] Blood Gas Vent Mode Not entered [facility] Oxygen Delivery Device Cannula [facility] Nucleated red blood cell per centageOrdered By: Beau Costa on 11-15-2024 Nucleated RBC/100 WBC (Bld) [Ratio] 0 % 0-5 [facility] Platelet countOrdered By: Rick Costa on 11-15-2024 Platelets (Bld) [#/Vol] 221 10*3/uL 150-450 [facility] Potassium measurement (mass/ volume)Ordered By: Beau Costa on 11-15-2024 Potassium (Unsp spec) [Mass/Vol] 4.3 mmol/L 3.3-5.1 [facility] Comment on above: Hemolysis present, R esults could be affected. RBC Auto (Bld) [#/Vol]Ordere d By: Beau Costa on 11-15-2024 RBC (Bld) [#/Vol] 4.43 10*6/uL Low 4.6-6.2 [facility] RESPIRATORY PANEL MOLECULARo n 11-15-2024 RP PANEL ADENOVIRUS Not Detected INFLUENZA A Not Detected INFLUENZA A (SUBTYPE H1) Not Detected INFLUENZA A (SUBTYPE H3) Not Detected INFLUENZA B Not Detected HUMAN METAPHNEUMO Not Detected PARAINFLUENZA 1 Not Detected PARAINFLUENZA 2 Not Detected PARAINFLUENZA 3 Not Detected PARAINFLUENZA 4 Not Detected RHINOVIRUS Not Detected RSV A Not Detected RSV B Not Detected Normal [facility] Comment on above: Performed By: #### L 509.7001, L503.7505 #### [facility] [place], [address] Respiratory pathogens detect ion panel by molecular detection methodOrdered By: Rohan Henao on 11-15-2024 Respiratory pathogens DNA and RNA panel MELY+probe (Resp) [facility] [id number] By: Wilfredo Henao on 11-15-2024 SARS-CoV-2 (COVID-19) RNA MELY+probe Ql (Unsp spec) [facility] Serum creatinine measurement (mass/volume)Ordered By: Beau Costa on 11-15-2024 Creatinine [Mass/Vol] 0.87 mg/dL 0.70-1.20 [facility] Serum glucose measurement (m ass/volume)Ordered By: Beau Costa on 11-15-2024 Glucose [Mass/Vol] 116 mg/dL High 70-99 [facility] Serum or plasma calcium todd urement (mass/volume)Ordered By: Beau Costa on 11-15-2024 Calcium [Mass/Vol] 8.8 mg/dL 7.6-11.0 [facility] Serum or plasma urea nitroge n measurement (mass/volume)Ordered By: Beau Costa on 11-15-2024 Urea nitrogen [Mass/Vol] 12 mg/dL 4-19 [facility] Sodium levelOrdered By: Beau Costa on 11-15-2024 Sodium [Moles/Vol] 139 mmol/L 133-145 [facility] Strep pneumoniae Antig(UR,CS F)on 11-15-2024 STPAG Comments: Only Recommended for severe cases of pneumonia URINE INTERPRETATION Strep pneumoniae Antig(UR,CSF) Negative Urine Presumptive negative for pneumococcal pneumonia, suggesting no current or recent pneumococcal infection. Infection due to S pneumoniae cannot be ruled out since the antigen present in the sample may be below the detection limit of the test. Strep pneumo Test Negative URINE (See interpretation below) Normal [facility] Comment on above: Performed By: #### L 509.7001, L503.7505 #### [facility] [place], [address] Total carbon dioxide measure mentOrdered By: Beau Costa on 11-15-2024 CO2 [Moles/Vol] 28 mmol/L [facility] Troponin T.cardiac [Mass/vol ume] in Serum or Plasma by High sensitivity methodOrdered By: Beau Costa on 11-15-2024 Troponin T.cardiac High sensitivity method [Mass/Vol] 20 ng/L <22 [facility] Troponin T.cardiac High sensitivity method [Mass/Vol] 21 ng/L <22 [facility] Troponin T.cardiac High sensitivity method [Mass/Vol] 25 ng/L High <22 [facility] Urine Legionella pneumophila antigen detectionOrdered By: Rohan Henao on 11-15-2024 L. pneumophila Ag Ql (U) [facility] White blood cell (WBC) count Ordered By: Beau Costa on 11-15-2024 WBC (Bld) [#/Vol] 20.1 10*3/uL High 4.4-11.0 [facility] CNOVon 10-26-2024 CNOV Office Visit (ESTEFANÍA) ---- NANETTE MONROY ([id number]) 1945 M Date Time Provider Department 10/26/24 2:30 PM ANASTASIYA FINK During your visit today, we recorded the following information about you: Anastasiya Fink AUD 10/31/2024 12:13 PM Signed [facility] Ne[facility] [place] [facility] Balance [facility] COCHLEAR IMPLANT ADULT PROGRAMMING Name: Nanette Monroy [facility]#: [id number] Date of Service: October 26, 2024 Date of : 1945 Age: [age] year old COCHLEAR IMPLANT INFORMATION (see below for all device details) RIGHT ear: External Processor: Cochlear [employer] [id number] (N7) External Processor [employer]chle[employer] Nucleus 7 (Upgraded Sep 2021) Processor SN [id number] Magnet Strength 1M Internal Device Cochlear CI 512 Inactive electrodes E6-7 Surgery Date March 2016 Initial activation date May [address] Fox LEFT ear: Resound Nexia [id number]-DRWC SN: [id number] with 1xMP and med power dome Fit and managed at an outside facility ([facility]) Wireless Accessory Set up Fee Paid: No HISTORY: Mr. Monroy was seen today to link his hearing aid in the Cochlear programming software upon return from forming machine tender repair. Mr. Monroy reported the forming machine tender sent a new hearing aid with a new serial number. COCHLEAR IMPLANT PROGRAMMING/TROUBLE SHOOTING: Datalogging: On air: 13.9 hours / Speech: 0.3 hours RIGHT Programming: Headset pressure, magnet strength, and incision site were checked with no problems noted. Electrode impedances, used to monitor internal device function, were measured across the electrode array. Impedances were WNL across all active electrodes. Programming consisted of: Left hearing aid was linked within the Cochlear programming software. Verified both devices were connected to patient's phone for streaming and within the Cochlear mary. Initially encountered difficulty with pairing hearing aid within Cochlear's software. Hearing aid was connected to ReFashioner software to ensure hearing aid had been programmed with most recent version of AppTrigger's software. 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 Additionally, while attempting to pair hearing aid and processor to patient's phone, both devices showed connected in Bibulu mary, but streaming was only to the processor and not the hearing aid. All Bluetooth pairings were deleted and re-paired devices, which resolved this issue. The function/use of the programs created were discussed and are listed below: Right Ear Program/Map # Program Feature 1 53 SCAN (ADRO + ASC), SNR-NR,WNR 2 53 Noise (Zoom+ADRO+ASC) Active controls include: volume, telecoil and user controlled forward focus. Battery Life: Battery Life Estimation: Right: Disposable 37 hours Power Extend 19 hours Compact 9 hours SUMMARY AND RECOMMENDATIONS: Counseling Points: * Continue to monitor magnet/incision site for pain, redness, swelling, scabbing etc. Should any of these occur discontinue use of device immediately and contact the office. * Continue use of right processor and left hearing aid during all waking hours. Follow-up Programming: It was recommended that the patient return on 04/23/2025 for monitoring of auditory performance and potential programming needs. The center should be contacted if there are problems or concerns before that time. NOTE: It should be noted that the patient left the appointment with all the equipment. None of the patient's equipment was left in the Audiology Section of the Clinic. TOTAL TIME: 45 minutes Programming right 20 minutes Jacqueline Aceves BA Doctor of Audiology ([place]) Talent Partner [place], [facility] Clinical and Hearing Implant Water Taxi Operator Allergies As of Date: 10/26/2024 (Not on File) Date Reviewed: Never Reviewed Reason for Visit: Hearing Loss [1119] Problem With Cochlear Implant(s) [1123] Primary Visit Diagnosis:Sensorine ural hearing loss (SNHL) of both ears [H90.3] Other Visit Diagnosis:Cochlear implant in place [Z96.21] Problem List As Of Date: 10/26/2024 (None) Encounter Status:Closed by ANASTASIYA FINK on 10/31/24 [facility] (HNQ[facility] ---- NANETTE MONROY ([id number]) 1945 M Date Time Provider Department 10/18/24 MATHEW GUDINO HNQ During your visit today, we recorded the following information about you: Mathew Gudino 10/18/2024 11:32 AM Signed Need to connect new THAYER to CI and get connected to phone. Got a repaired THAYER device. 10/26 2:30 opening TW Mathew Gudino Hearing Implant Telephone Instrument Supervisor [email or web address] As of Date: 10/18/2024 (Not on File) Date Reviewed: Never Reviewed Problem List As Of Date: 10/18/2024 (None) Encounter Status:Closed by MATHEW GUDINO on 10/18/24 [facility] Pulmonary Visit Reporton Pulmonary Visit Report [facility] [place] [address] [place] [address] OFFICE VISIT Date of Service: 09/12/24 MR#: [id number] Acct: [id number] Name: NANETTE MONROY Rep #: [id number] : 1945 Provider: MIKAEL Bethea Age/Sex: 79/M Location: [facility] Status: Signed Assessment and Plan Assessment and Plan (1) Stage 3 severe COPD by GOLD classification: Status: Chronic Comment: FEV1 37% of predicted Plan: Deteriorated. The patient continues to be symptomatic despite optimizing his maintenance medications. He did not find Mucinex to be very helpful. Unfortunately, he was not able to afford Daliresp. He will continue triple therapy with the use of budesonide, Brovana and DuoNebs. I am going to step up therapy and place him on azithromycin 150 mg Tuesday, Tuesday and Tuesday weekly. He will also be placed on a low-dose of chronic prednisone, 10 mg daily. The patient conveys understanding. No additional testing at this time. Follow-up in the office in 3 to 4 months to evaluate his response to therapy change. He has been encouraged to contact the office with any difficulties in the meantime. (2) Chronic hypoxemic respiratory failure: Status: Chronic Plan: The patient is using and benefiting from oxygen and his noninvasive ventilator. Continue to utilize to maintain a saturation of 89-92%. Follow-up in 3 to 4 months Medications: New azithromycin 250 mg PO QMWF 12 tabs 11RF prednisone 10 mg PO QDAY 90 tabs 0RF HPI 1 M F/U Chief Complaint: Cough HPI Comments Details: This patient presents to the office today for follow-up of his stage III severe COPD with chronic hypoxic respiratory failure. He is ambulatory and current on supplemental oxygen. He has not recently required the use of antibiotics or steroids for any breathing problems. He has not been seen in the ED or urgent care for any respiratory illness. He is compliant with budesonide and DuoNebs nebulized twice daily. He also uses Brovana once daily. He rinses his mouth out after the budesonide. He denies any medication side effect such as sore throat or thrush. He has been utilizing Mucinex 1200 mg twice daily since last office visit. He reports that he is not sure if the Mucinex is helping or making things worse. He sometimes feels as though there is nothing to cough out. He is compliant with supplemental oxygen. He wears 4-5.5 L continuous. He is compliant with use of his noninvasive ventilator with sleep. He averages over 10 hours per night with it. He does have shortness of breath on exertion. He has a cough that is productive of clear to yellow- colored sputum. He denies any hemoptysis. He occasionally has wheezing but denies any chest tightness, chest pain or palpitations. He has not had any fever, chills or body aches. Intake Vital Signs 08/14/24 08:50 09/12/24 07:50 Height 5 ft 9 in 5 ft 9 in Weight: 177 lb 180 lb BMI 26.1 26.6 BP 125/71 H 123/73 H Blood Pressure Location Rt brachial Rt brachial Position Sitting Sitting Respiration 22 H 20 H Pulse 82 72 Pulse Source Monitor Monitor Temp 97.4 F L 98.4 F Temperature Source Temporal Artery Temporal Artery Pulse Oximetry (%) 93 90 Oxygen Delivery Method nasal canula nasal canula Oxygen Flow Rate (L/min) 4 4 Intake Visit Reasons: 1 M F/U Chief Complaint: f/u COPD Automation Controls Expert Required: No DME Vendor: Maya Accompanied by: Self Allergies tiotropium (From Spiriva with HandiHaler) Adverse Reaction (Severe, Verified 09/12/24 09:23) Decreased Urination cyanocobalamin (vitamin B12) Adverse Reaction (Verified 09/12/24 09:23) Other Medications ???Medication ???Instructions ???Recorded ???Confirmed ???Type acetaminophen 500 mg capsule 500 - 1,000 mg PO DAILY PRN PRN 09/12/24 History Pain Or Fever aspirin 81 mg tablet,delayed 81 mg PO DAILY@2000 heart health 0 12/24/19 09/12/24 History release nitroglycerin 0.4 mg sublingual 0.4 mg sublingual Q5-15M PRN chest 03/22/22 09/12/24 Rx tablet pain #25 tabs Handicap Placcard #1 ea 07/29/22 09/12/24 Rx albuterol sulfate 2.5 mg/3 mL 2.5 mg (3 mL) inhalation Q4H #180 08/14/24 09/12/24 Rx (0.083 %) solution for nebulization mL albuterol sulfate 90 mcg/actuation 2 puff inhalation Q4H PRN 09/12/24 Rx aerosol inhaler shortness of breath or wheezing #8.5 grams arformoterol 15 mcg/2 mL solution 15 mcg (2 mL) inhalation BID #120 08/14/24 09/12/24 Rx for nebulization (Brovana) mL budesonide 0.5 mg/2 mL suspension 0.5 mg (2 mL) inhalation BID #120 08/14/24 09/12/24 Rx for nebulization mL guaifenesin 1,200 mg tablet, 1,200 mg PO Q12H #60 tabs 08/14/24 09/12/24 Rx extended release 12 hr metoprolol succinate 25 mg 12.5 mg (1/2 x 25 mg) PO DAILY #45 (more content not included)... Normal [facility] Cardiology Visit Reporton Cardiology Visit Report [facility] [address] [place] [address] OFFICE VISIT Date of Service: 09/11/24 MR#: [id number] Acct: [id number] Name: NANETTE MONROY Rep #: [id number] : 1945 Provider: MIKAEL ravi Age/Sex: 79/M Location: [facility] Status: Signed HPI HPI History of Present Illness Details: Nanette Monroy is a 79-year-old white male who presents today for an outpatient cardiovascular follow-up visit. He has a history of underlying CAD, ischemic mediated cardiomyopathy, status post revascularization therapy with PCI/CABG, ventricular ectopy, hyperlipidemia, superimposed upon underlying severe COPD with chronic O2 nasal cannula requirements. The patient is status post bypass graft surgery and had a repeat catheterization done January 2010. He had a patent ONOFRE to the LAD which was somewhat small and atretic and nonfunctional and a patent radial artery graft to the lateral second OM branch and occluded vein graft to the right coronary artery and occluded mid right coronary artery. His LVEF was 40 to 45% with inferior basal left ventricular akinesis. Last echocardiogram done in 2018 showed an EF of 40% 1+ mitral insufficiency trivial tricuspid aortic insufficiency) his systolic pressure was only 31. He denies chest, arm, jaw, or neck discomfort. He denies palpitations. He denies bilateral lower extremity edema. He denies claudication. He states shortness of breath with activity. He acknowledges shortness of breath during coughing spells. He denies shortness of breath at rest, orthopnea, or PND. He states cough. He denies significant, sudden weight gain. He acknowledges occasional lightheadedness when for standing. He denies dizziness, near-syncope, or syncope. He denies blood in urine, blood in stool, or epistaxis. He denies fever with chills. He denies myalgia. He denies fatigue. His exercise level has remained stable. Intake Vital Signs 09/12/23 11:20 08/14/24 08:50 09/11/24 10:38 Height 5 ft 9 in 5 ft 9 in 5 ft 9 in Weight: 178 lb BMI 26.2 BP 144/76 H Blood Pressure Location Lt brachial Position Sitting Respiration 18 Pulse 76 Pulse Source NIBP Pulse Oximetry (%) 85 Oxygen Delivery Method nasal canula Oxygen Flow Rate (L/min) 5 Intake Visit Reasons: 1 Y FU Automation Controls Expert Required: No Is patient in pain?: No Allergies tiotropium (From Spiriva with HandiHaler) Adverse Reaction (Severe, Verified 09/11/24 10:42) Decreased Urination cyanocobalamin (vitamin B12) Adverse Reaction (Verified 09/11/24 10:42) Other Medications ???Medication ???Instructions ???Recorded ???Confirmed ???Type acetaminophen 500 mg capsule 500 - 1,000 mg PO DAILY PRN PRN 09/11/24 History Pain Or Fever aspirin 81 mg tablet,delayed 81 mg PO DAILY@2000 heart health 0 12/24/19 09/11/24 History release nitroglycerin 0.4 mg sublingual 0.4 mg sublingual Q5-15M PRN chest 03/22/22 09/11/24 Rx tablet pain #25 tabs Handicap Placcard #1 ea 07/29/22 08/14/24 Rx albuterol sulfate 2.5 mg/3 mL 2.5 mg (3 mL) inhalation Q4H #180 08/14/24 09/11/24 Rx (0.083 %) solution for nebulization mL albuterol sulfate 90 mcg/actuation 2 puff inhalation Q4H PRN 09/11/24 Rx aerosol inhaler shortness of breath or wheezing #8.5 grams arformoterol 15 mcg/2 mL solution 15 mcg (2 mL) inhalation BID #120 08/14/24 09/11/24 Rx for nebulization (Brovana) mL budesonide 0.5 mg/2 mL suspension 0.5 mg (2 mL) inhalation BID #120 08/14/24 09/11/24 Rx for nebulization mL guaifenesin 1,200 mg tablet, 1,200 mg PO Q12H #60 tabs 08/14/24 09/11/24 Rx extended release 12 hr metoprolol succinate 25 mg 12.5 mg (1/2 x 25 mg) PO DAILY #45 08/20/24 09/11/24 Rx tablet,extended release 24 hr TABLETS rosuvastatin 20 mg tablet 20 mg PO DAILY #90 tabs 08/20/24 0 09/11/24 Rx ipratropium 0.5 mg-albuterol 3 mg 3 ml inhalation DAILY 09/11/24 H istory (2.5 mg base)/3 mL nebulization soln isosorbide mononitrate 30 mg 30 mg PO DAILY #90 tabs 09/11/24 0 09/11/24 Rx tablet,extended release 24 hr losartan 25 mg tablet 25 mg PO BID #180 tabs 09/11/24 Rx Ejection fraction %: 40 Have you fallen in the past year?: No Nurse's Note: Needs refills sent to [facility] for losartan and isosorbide 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, implants and grafts, initial encounter Nocturnal hypoxia Tobacco dependence in remission Chronic hypoxemic respiratory failure COPD (chronic obstructive pulmonary disea (more content not included)... Normal [facility] Pulmonary Visit Reporton Pulmonary Visit Report [facility] [place] [address] [place] [address] OFFICE VISIT Date of Service: 08/14/24 MR#: [id number] Acct: [id number] Name: NANETTE MONROY Rep #: [id number] : 1945 Provider: MIKAEL Bethea Age/Sex: 79/M Location: [facility] Status: Signed Assessment and Plan Assessment and Plan (1) Stage 3 severe COPD by GOLD classification: Status: Chronic Comment: FEV1 37% of predicted Plan: Stable, he does not appear to be an exacerbation of COPD today. No need for prednisone or antibiotic. Continue current maintenance medication, he is on budesonide and Brovana. I attempted to add Daliresp at the last office visit, however it was $300 per month. This was not affordable to the patient. I am going to place him on Mucinex 1200 mg twice daily for his daily thick productive cough. No additional testing at this time. Contact the office for any new or worsening symptoms. An acute visit and typically be arranged within 1-2 days. Follow-up in 1 month. If symptoms are not improved with the use of Mucinex daily I will consider placing him on prophylactic azithromycin and long-term low-dose prednisone. (2) Chronic hypoxemic respiratory failure: Status: Chronic Plan: The patient is using and benefiting from oxygen and his noninvasive ventilator. Continue to utilize to maintain a saturation of 89-92%. Follow-up in 1 month Medications: New guaifenesin ER 1,200 mg PO Q12H 60 tabs 6RF Changed From albuterol sulfate 2.5 mg (3 mL) inhalation Q4H PRN 180 mL 6RF shortness of breath or wheezing J44.9 - Chronic obstructive pulmonary disease, unspecified To albuterol sulfate 2.5 mg (3 mL) inhalation Q4H 180 mL 6RF J44.9 - Chronic obstructive pulmonary disease, unspecified From ipratropium-albuter ol 0.5 mg-3 mg(2.5 mg base)/3 mL 3 mL inhalation Q6H PRN 90 mL 11RF shortness of breath or wheezing To ipratropium-albuter ol 0.5 mg-3 mg(2.5 mg base)/3 mL 3 mL inhalation Q6H 360 mL 11RF Refilled albuterol sulfate 90 mcg/actuation administer with spacer 2 puffs inhalation Q4H PRN 8.5 grams 3RF shortness of breath or wheezing arformoterol (Brovana) 15 mcg (2 mL) inhalation BID 120 mL 11RF budesonide 0.5 mg (2 mL) inhalation BID 120 mL 11RF Plan Details Follow Up: 1 Month (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 He is ambulatory and current on supplemental oxygen. He has not recently required the use of antibiotics or steroids for any breathing problems. He has not been seen in the ED or urgent care for any respiratory illness. He was recently treated with an antibiotic for a urinary tract infection. He is compliant with budesonide and DuoNebs nebulized twice daily. He also uses Brovana once daily. He rinses his mouth out after the budesonide. He denies any medication side effect such as sore throat or thrush. He is compliant with supplemental oxygen. He wears 4-5.5 L continuous. He is compliant with use of his noninvasive ventilator with sleep. He averages over 10 hours per night with it. He does have shortness of breath on exertion. He has a cough that is productive of thick clear to yellow-colored sputum. It is sticky and stringy. He denies any hemoptysis. He occasionally has wheezing but denies any chest tightness, chest pain or palpitations. He has not had any fever, chills or body aches. Compliance report for the past 30 days shows average use of 9 hours and 25 minutes per night. Intake Vital Signs 02/02/24 07:44 08/14/24 08:50 Height 5 ft 9 in 5 ft 9 in Weight: 177 lb BMI 26.1 BP 125/71 H Blood Pressure Location Rt brachial Position Sitting Respiration 22 H Pulse 82 Pulse Source Monitor Temp 97.4 F L Temperature Source Temporal Artery Pulse Oximetry (%) 93 Oxygen Delivery Method nasal canula Oxygen Flow Rate (L/min) 4 Intake Visit Reasons: 6 M FU Chief Complaint: f/u COPD Automation Controls Expert Required: No DME Vendor: [employer] Accompanied by: Self Is patient in pain?: No Allergies tiotropium (From Spiriva with HandiHaler) Adverse Reaction (Severe, Verified 08/14/24 09:36) Decreased Urination cyanocobalamin (vitamin B12) Adverse Reaction (Verified 08/14/24 09:36) Other Medications ???Medication ???Instructions ???Recorded ???Confirmed ???Type acetaminophen 500 mg capsule 500 - 1,000 mg PO DAILY PRN PRN 08/14/24 History Pain Or Fever aspirin 81 mg tablet,delayed 81 mg PO DAILY@2000 heart health 0 12/24/19 08/14/24 History release nitroglycerin 0.4 mg sublingual 0.4 mg sublingual Q5-15M PRN chest 03/22/22 08/14/24 Rx tablet pain #25 tabs Handicap Plac (more content not included)... Normal [facility] .Auto Diffon 07-16-2024 Basophil, Absolute 0.1 10 3/mcL Normal 0.0-0.2 [facility] Comment on above: Performed By: #### L IPID, CBC, ADIFF, ANEU, PSA #### [address] [address] Basophils/100 WBC (Bld) 0.7 % Normal 0.0-2.5 [facility] Comment on above: Performed By: #### L IPID, CBC, ADIFF, ANEU, PSA #### [address] [address] Eosinophil, Absolute 0.1 10 3/mcL Normal 0.0-0.7 [facility] Comment on above: Performed By: #### L IPID, CBC, ADIFF, ANEU, PSA #### [address] [address] Eosinophils/100 WBC (Bld) 1.4 % Normal 0.0-7.0 [facility] Comment on above: Performed By: #### L IPID, CBC, ADIFF, ANEU, PSA #### [address] [address] Lymphocyte, Absolute 1.2 10 3/mcL Normal 0.9-4.3 [facility] Comment on above: Performed By: #### L IPID, CBC, ADIFF, ANEU, PSA #### [address] [address] Lymphocytes/100 WBC (Bld) 12.6 % Low 20.0-40.0 [facility] Comment on above: Performed By: #### L IPID, CBC, ADIFF, ANEU, PSA #### [address] [address] Monocyte, Absolute 0.7 10 3/mcL Normal 0.1-1.4 [facility] Comment on above: Performed By: #### L IPID, CBC, ADIFF, ANEU, PSA #### [address] [address] Monocytes/100 WBC (Bld) 7.7 % Normal 2.0-13.0 [facility] Comment on above: Performed By: #### L IPID, CBC, ADIFF, ANEU, PSA #### [address] [address] Neutrophils/100 WBC (Bld) 77.6 % High 50.0-75.0 [facility] Comment on above: Performed By: #### L IPID, CBC, ADIFF, ANEU, PSA #### [address] [address] .GFRon 07-16-2024 GFR 81 ml/min/1.73sqm Normal [facility] Comment on above: Result Comment: GFR Population mean for , Non- Americans Ages 20-29 = 116 mL/min/1.73 sq.m. Ages 30-39 = 107 mL/min/1.73 sq.m. Ages 40-49 = 99 mL/min/1.73 sq.m. Ages 50-59 = 93 mL/min/1.73 sq.m. Ages 60-69 = 85 mL/min/1.73 sq.m. Ages 70+ = 75 mL/min/1.73 sq.m. Chronic Kidney Disease: Less than 60 mL/min/1.73 square meters End Stage Renal Disease: Less than 15 mL/min/1.73 square meters Performed By: #### C MP, GFR #### [address] [address] GFR Non- 66 ml/min/1.73sqm Normal [facility] Comment on above: Result Comment: GFR Population mean for , Non- Americans Ages 20-29 = 116 mL/min/1.73 sq.m. Ages 30-39 = 107 mL/min/1.73 sq.m. Ages 40-49 = 99 mL/min/1.73 sq.m. Ages 50-59 = 93 mL/min/1.73 sq.m. Ages 60-69 = 85 mL/min/1.73 sq.m. Ages 70+ = 75 mL/min/1.73 sq.m. Chronic Kidney Disease: Less than 60 mL/min/1.73 square meters End Stage Renal Disease: Less than 15 mL/min/1.73 square meters Performed By: #### C MP, GFR #### [place] [address] .NEUABSon 07-16-2024 Neutrophil, Absolute 7.2 10 3/mcL Normal 2.3-8.1 [facility] Comment on above: Performed By: #### L IPID, CBC, ADIFF, ANEU, PSA #### [place] [address] CBCon 07-16-2024 Erythrocyte distribution width (RBC) [Ratio] 13.7 % Normal 11.5-15.5 [facility] Comment on above: Performed By: #### L IPID, CBC, ADIFF, ANEU, PSA #### [place] [address] Hematocrit (Bld) [Volume fraction] 43.3 % Normal 40.0-52.0 [facility] Comment on above: Performed By: #### L IPID, CBC, ADIFF, ANEU, PSA #### [place] [address] Hgb 14.4 G/dL Normal 13.0-17.5 [facility] Comment on above: Performed By: #### L IPID, CBC, ADIFF, ANEU, PSA #### [place] [id number] MCH (RBC) [Entitic mass] 31.5 pg Normal 27.0-33.0 [facility] Comment on above: Performed By: #### L IPID, CBC, ADIFF, ANEU, PSA #### [address] [address] MCHC 33.3 G/dL Normal 32.0-36.0 [facility] Comment on above: Performed By: #### L IPID, CBC, ADIFF, ANEU, PSA #### [address] [address] MCV (RBC) [Entitic vol] 94.6 fL Normal 81.0-100.0 [facility] Comment on above: Performed By: #### L IPID, CBC, ADIFF, ANEU, PSA #### [address] [address] Platelet 234 10 3/mcL Normal 150-450 [facility] Comment on above: Performed By: #### L IPID, CBC, ADIFF, ANEU, PSA #### [address] [address] Platelet mean volume (Bld) [Entitic vol] 8.0 fL Normal 6.4-10.5 [facility] Comment on above: Performed By: #### L IPID, CBC, ADIFF, ANEU, PSA #### [address] [address] RBC 4.58 10 6/mcL Normal 4.50-6.00 [facility] Comment on above: Performed By: #### L IPID, CBC, ADIFF, ANEU, PSA #### [address] [address] WBC 9.2 10 3/mcL Normal 4.5-10.8 [facility] Comment on above: Performed By: #### L IPID, CBC, ADIFF, ANEU, PSA #### [address] [address] CMPon 07-16-2024 Albumin Level 3.3 G/dL Low 3.4-4.8 [facility] Comment on above: Performed By: #### C MP, GFR #### [place] [id number] Albumin/Globulin [Mass ratio] 0.9 {ratio} Low 1.1-2.5 [facility] Comment on above: Performed By: #### C MP, GFR #### [address] [address] ALP [Catalytic activity/Vol] 105 U/L Normal 40-135 [facility] Comment on above: Performed By: #### C MP, GFR #### [address] [address] ALT [Catalytic activity/Vol] 17 U/L Normal 16-63 [facility] Comment on above: Performed By: #### C MP, GFR #### [address] [address] AST [Catalytic activity/Vol] 18 U/L Normal 10-40 [facility] Comment on above: Performed By: #### C MP, GFR #### [address] [address] Bili Total 0.5 mg/dL Normal 0.2-1.0 [facility] Comment on above: Result Comment: Use of this assay is not recommended for patients undergoing treatment with eltrombopag due to the potential for falsely elevated results. Performed By: #### C MP, GFR #### [address] [address] BUN/Creatinine Ratio 10 ratio Normal 7-27 [facility] Comment on above: Performed By: #### C MP, GFR #### [address] [address] Calcium [Mass/Vol] 8.9 mg/dL Normal 8.4-10.2 [facility] Comment on above: Performed By: #### C MP, GFR #### [address] [address] Chloride [Moles/Vol] 106 mmol/L Normal 98-107 [facility] Comment on above: Performed By: #### C MP, GFR #### [address] [address] CO2 [Moles/Vol] 27 mmol/L Normal 23-31 [facility] Comment on above: Performed By: #### C MP, GFR #### [address] [address] Creatinine [Mass/Vol] 1.07 mg/dL Normal 0.70-1.30 [facility] Comment on above: Result Comment: Test ing performed on Siemens Dimension EXL analyzer using a modified kinetic Dorothy technique. Performed By: #### C MP, GFR #### [address] [address] Electrolyte Balance 10.0 mEq/L Normal 4.0-15.0 [facility] Comment on above: Performed By: #### C MP, GFR #### [place] [address] Globulin 3.7 G/dL Normal [facility] Comment on above: Performed By: #### C MP, GFR #### [place] [address] Glucose [Mass/Vol] 105 mg/dL Normal 83-110 [facility] Comment on above: Performed By: #### C MP, GFR #### [address] [address] Potassium [Moles/Vol] 4.8 mmol/L Normal 3.5-5.1 [facility] Comment on above: Performed By: #### C MP, GFR #### [address] [address] Sodium [Moles/Vol] 143 mmol/L Normal 136-145 [facility] Comment on above: Performed By: #### C MP, GFR #### [address] [address] Total Protein 7.0 G/dL Normal 6.4-8.2 [facility] Comment on above: Performed By: #### C MP, GFR #### [address] [address] Urea nitrogen [Mass/Vol] 11 mg/dL Normal 7-18 [facility] Comment on above: Performed By: #### C MP, GFR #### [address] [address] LIPIDon 07-16-2024 Cholesterol [Mass/Vol] 138 mg/dL Normal 0-200 [facility] Comment on above: Result Comment: Chol esterol Reference Interval: Less than 200 Desirable 200-239 Borderline high risk 240 and above High risk Performed By: #### L IPID, CBC, ADIFF, ANEU, PSA #### [address] [address] Cholesterol in HDL [Mass/Vol] 64 mg/dL High 40-60 [facility] Comment on above: Performed By: #### L IPID, CBC, ADIFF, ANEU, PSA #### [address] [address] Cholesterol in LDL [Mass/Vol] 65 mg/dL Normal 0-130 [facility] Comment on above: Performed By: #### L IPID, CBC, ADIFF, ANEU, PSA #### [address] [address] Triglyceride [Mass/Vol] 44 mg/dL Normal 0-150 [facility] Comment on above: Result Comment: Trig lyceride Reference Interval: Less than 150 Normal 150-199 Borderline high risk 200-499 High risk 500 or higher Very high risk Performed By: #### L IPID, CBC, ADIFF, ANEU, PSA #### [address] [address] PSAon 07-16-2024 Prostate Specific Antigen 0.84 ng/mL Normal 0.00-4.00 [facility] Comment on above: Performed By: #### L IPID, CBC, ADIFF, ANEU, PSA #### [address] [address] CNPNgozi 06-20-2024 CNPN Telephone ([facility]) ---- NANETTE MONROY ([id number]) 1945 M Date Time Provider Department 06/20/24 MATHEW GUDINO HNQ During your visit today, we recorded the following information about you: Mathew Gudino 06/20/2024 3:03 PM Signed Trying to locate battery door on left hearing aid. The mary is telling him to do that to connect it. Tried to get a pin to open it but can't. Once it's open, hit continue, and Trying to pair the hearing aid to CI through phone mary. Will reach out to providers and call back. Mathew Gudino Hearing Implant Telephone Instrument Supervisor Mathew Gudino 06/20/2024 4:12 PM Signed The mary for the hearing aid is frozen when you go in to use it. He used to be able to adjust different settings. If he puts the THAYER back in the railroad worker and bring it back then he gets it back but then as soon as he turns it off then he loses it again. Working right now, is able to stream to both ears. I will check in tomorrow and see if it resolves once the hearing aid has charged all night. Mathew Gudino Hearing Implant Telephone Instrument Supervisor Mathew Gudino 06/21/2024 4:39 PM Signed Followed up to see if Nanette was able to resolve concerns. NO further issues Mathew Gudino Hearing Implant Telephone Instrument Supervisor Allergies As of Date: 06/20/2024 (Not on File) Date Reviewed: Never Reviewed Reason for Visit: Patient Question [2377] Problem List As Of Date: 06/20/2024 (None) Encounter Status:Closed by MATHEW GUDINO on 06/21/24 [facility] Samy 06-19-2024 CNOV Office Visit (CRISTINE) ---- NANETTE MONROY ([id number]) 1945 M Date Time Provider Department 06/19/24 10:30 AM ANASTASIYA FINK During your visit today, we recorded the following information about you: Anastasiya Fink AUD 06/26/2024 10:36 PM Signed [facility] [place] [facility] COCHLEAR IMPLANT ADULT PROGRAMMING Name: Nanette Monroy [facility]#:[id number] Date of Service: 06/19/2024 Date of : 1945 Age: [age] year old COCHLEAR IMPLANT INFORMATION (see below for all device details) RIGHT ear: External Processor: Cochlear [employer] [id number] (N7) External Processor Cochle[employer] Nucleus 7 (Upgraded Sep 2021) Processor SN [id number] Magnet Strength 1M Internal Device Cochlear CI 512 Inactive electrodes E6-7 Surgery Date March 2016 Initial activation date May [address] Fox LEFT ear: Resound Nexia [id number] SN: [id number] with 1xMP and Stubmatic dome Fit and managed at an outside facility ([facility]) Wireless Accessory Set up Fee Paid: No HISTORY: Nanette Monroy was seen for monitoring of the device/s. The patient reported: * No pain, redness, swelling at magnet site. * Microphone covers last changed a few weeks ago * Wearing sound processor:all waking hours * Questions about how to get new batteries when needed. [employer] was requesting batteries for him * Would like to continue to have Dr. Fox as his managing ENT instead of establishing with [facility] ENT * Feels he hears better with his new hearing aid. Would like to have this managed at [facility] AIDED AUDIOMETRIC TESTING: Audiologic testing was completed in the sound field with the speech processor(s) at user settings (Program: 1; Volume: 6; Sensitivity: 12.) before programming. See the [employer] Audiogram for obtained thresholds. Speech perception testing was completed at 60 dump motor operator using recorded stimuli in the sound field at 0 degrees azimuth. NOTE: The contralateral ear was plugged and muffed or masked during testing. The following testing and results were obtained: Firyfopwq-Yysleob-X onsonant Words (CNC) Test Condition List # Phonemes Words Clinically significant change compared to previous visit? Clinically significant change compared to BEST? Right Ear 3 84% 72% Baseline Baseline Bimodal 8 92% 84% Baseline Baseline [place] BIO (quiet) Test Condition List # Score Clinically significant change compared to previous visit? Clinically significant change compared to BEST? Right Ear 2 80% Baseline Baseline Bimodal 7 91% Baseline Baseline [place] BIO (+10 SNR) Test Condition List # Score Clinically significant change compared to previous visit? Clinically significant change compared to BEST? Right Ear 5 48% Baseline Baseline Bimodal 6 52% Baseline Baseline Summary: Aided detection obtained essentially in the expected range (20-30 dB HL) from 250-6000 Hz, with detection at 35 dB HL from 250-500 Hz and 9894-1055 Hz. Baseline speech measures obtained today demonstrate good benefit from right CI with slight bimodal benefit from use of bilateral devices. CONTRALATERAL HEARING AID PROGRAMMING/TROUBLE SHOOTING: This patient was seen today for a Hearing Aid Check. Audiogram obtained from hearing aid fitting software, see below: Patient's hearing aid connected to software to verify patient had access to tap control, a feature he liked with his Phonak hearing aid. Confirmed tap control active. Patient's incoming settings were saved. No further programming changes made. COCHLEAR IMPLANT PROGRAMMING/TROUBLE SHOOTING: Datalogging: Datalogging Right Ear Time in Use 14 hours Time in Speech 0.8 hours Coil-offs 0 RIGHT Programming: Headset pressure, magnet strength, and incision site were checked with no problems noted. Electrode impedances, used to monitor internal device function, were measured across the electrode array. Impedances were WNL across all active electrodes. Review of impedances obtained today with comparison to previous visit did not identify any remarkable changes or atypical measurements. Programming consisted of adjusting Threshold (T) levels based on detection obtained in the sound ruffin and setting Comfort (C) levels at loud, but comfortable using a loudness scale. Several active electrodes were measured and the rest were interpolated. Minimal changes made to C levels. The function/use of the programs created were discussed and are listed below: Right Ear Program/Map # Program Feature 1 53 SCAN (ADRO + ASC), SNR-NR,WNR 2 53 Noise (Zoom+ADRO+ASC) Active controls include: volume, telecoil and user controlled forward focus. Battery Life: Battery Life Estimation: Right: Disposable 36 hours Power Extend 19 hours Compact 9 hours SUMMARY AND RECOMMENDATIONS: Counseling Points: * Recommend contacting Cochlear fo (more content not included)... Normal [facility] HEARING IMPLANTABLE DEVICES (E.G. COCHLEAR IMPLANTS (CI), BONE ANCHORED (SABINO), SENSORY DEVICES)on 06-19-2024 [facility] CNPNon 04-16-2024 CNPN Telephone (HNQ) ---- NANETTE MONROY ([id number]) 1945 M Date Time Provider Department 04/16/24 MATHEW GUDINO HNQ During your visit today, we recorded the following information about you: Mathew Gudino 04/16/2024 4:11 PM Signed Fit with THAYER- Phonak, recommended Nexia from [employer]. Ordered a demo for him to try. Coming in to fit with demo. Questions about phone pairing to hearing aid THAYER through- has to May 21 to do exchange Jerrica [place] Allergies As of Date: 04/16/2024 (Not on File) Date Reviewed: Never Reviewed Problem List As Of Date: 04/16/2024 (None) Encounter Status:Closed by MATHEW GUDINO on 04/16/24 Normal [facility] CNOVon 04-03-2024 CNOV Office Visit (CRISTINE) ---- NANETTE MONROY ([id number]) 1945 M Date Time Provider Department 04/03/24 10:30 AM ANASTASIYA FINK During your visit today, we recorded the following information about you: Anastasiya Fink AUD 04/03/2024 12:58 PM Signed [facility] [place] [facility] COCHLEAR IMPLANT ADULT PROGRAMMING Name: Nanette Monroy [facility]#: [id number] Date of Service: April 03, 2024 Date of : 1945 Age: [age] year old COCHLEAR IMPLANT INFORMATION (see below for all device details) Updated: April 03, 2024 RIGHT ear: External Processor: Cochlear [employer] [id number] (N7) External Processor Cochlear [employer] Nucleus 7 (Upgraded Sep 2021) Processor SN [id number] Magnet Strength 1M Internal Device Cochlear CI 512 Inactive electrodes E6-7 Surgery Date March 2016 Initial activation date May [address] Fox LEFT ear: Phonak Audeo L90-RL with 2M brimmer blocker and med vented dome Fit and managed at an outside facility ([facility]) Wireless Accessory Set up Fee Paid: No HISTORY: Mr. Monroy was seen for establishing care of the device/s. The patient reported: * Previously seen by Dr. Tee for managing of his implant, last seen 1-2 years ago. She reached out a year ago to update him that she would be retiring and that she would provide information on other clinics to schedule - but he never received any further information * Called Cochlear and they recommended he schedule with [facility] * Recently dropped processor and it stopped working. Reported he used his backup, and that he thought he had another processor that was unopened. Upon further exploration, patient thought cables were processors. He replaced cable and had another replacement cable that was unopened. * Music does not sound good, feels things are out of tune. Does feel like he can hear music that is more rhythmic better (eg rap music) * Feels cochlear implant has helped him hear voices significantly better * Recently updated hearing aid on the left ear (a few weeks ago), managed at [facility] in [place]. Water Taxi Operator there told him she did not want to make too many changes to his hearing aid programming until he had his implant reprogrammed * Has not been hearing well on the phone when using Bluetooth streaming to left hearing aid * Reported he received some insurance coverage ([facility] AARP supplement) towards his hearing aid, but put the rest on care credit. * Keeps track of changing arie covers, due to be changed next month. Has been much more pleased with N7 covers than the N6 * Last time he saw Dr. Tee, she changed his magnet from a 2 to 1 * No pain, redness, swelling at magnet site. * Wearing sound processor: All waking hours * Typically uses P1 or P2. Unsure of the difference between P3 and P4 * Often keeps the volume around 5 or 6 on P1 and at volume 2 on P2. * Hx COPD and on O2 AIDED AUDIOMETRIC TESTING: Deferred today due to time constraints. Will complete at follow-up visit CONTRALATERAL HEARING AID PROGRAMMING/TROUBLE SHOOTING: Significant amount of time was dedicated to discussion of bimodal compatible hearing aids and benefits especially for phone connectivity. Provided brochure for Resound Nexia, but could also consider an Omnia or One. Recommend patient return to fitting chief sustainability officer to determine if hearing aid can be exchanged for a Resound device. If that clinic unable to work with Resound, offered for patient to return to [facility] for fitting of a Resound device. COCHLEAR IMPLANT PROGRAMMING/TROUBLE SHOOTING: Dataloggin.3 hrs/day RIGHT Programming: Headset pressure, magnet strength, and incision site were checked with no problems noted. Electrode impedances, used to monitor internal device function, were measured across the electrode array. Impedances were WNL across all active electrodes. No previous impedance measurements available for comparison. Programming consisted of setting Comfort (C) levels at loud, but comfortable using a loudness scale. Several active electrodes were measured and the rest were interpolated. Mapping completed based on previous P1, Map 49. Primarily increased more apical electrodes and decreased more basal electrodes. Following changes, patient reported sound was too echoey. Tilted C's 5 towards the left, which resolved this issue. The function/use of the programs created were discussed and are listed below: Right Ear Program/Map # Program Feature 1 51 SCAN (ADRO + ASC), SNR-NR,WNR 2 51 Restaurant (Beam+ADRO+ASC) 3 49 SCAN (ADRO + ASC), SNR-NR,WNR Prev. Preferred MAP Active controls include: volume, user controlled Forward Focus and telecoil. Battery Life: Rechargeable: 17 hours Disposable: 32 hours SUMMARY AND RECOMMENDATIONS: Assistive Technologies: Th (more content not included)... Normal [facility] Pulmonary Visit Reporton Pulmonary Visit Report [facility] [place] [address] [place], [place] [id number] OFFICE VISIT Date of Service: 02/02/24 MR#: [id number] Acct: [id number] Name: NANETTE MONROY Rep #: [id number] : 1945 Provider: MIKAEL Bethea Age/Sex: 78/M Location: [facility].PM[facility] Status: Signed Assessment and Plan Assessment and Plan (1) Chronic hypoxemic respiratory failure: Status: Chronic Plan: The patient is using and benefiting from oxygen and his noninvasive ventilator. Continue to utilize to maintain a saturation of 89-92%. Follow-up in 6 months. (2) Stage 3 severe COPD by GOLD classification: Status: Chronic Comment: FEV1 37% of predicted Plan: Stable, he does not appear to be an exacerbation of COPD today. No need for prednisone or antibiotic. Continue current maintenance medication, symptomatically controlled with the use of budesonide and Brovana. No additional testing at this time. Contact the office for any new or worsening symptoms. An acute visit and typically be arranged within 1-2 days. Follow-up in 6 months. Plan Details Follow Up: 6 Months (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 He is ambulatory and current on supplemental oxygen. He has not recently required the use of antibiotics or steroids for any breathing problems. He has not been seen in the ED or urgent care for any respiratory illness. He is compliant with budesonide nebulized twice daily. He also uses Brovana once daily. He rinses his mouth out after the budesonide. He denies any medication side effect such as sore throat or thrush. He is compliant with supplemental oxygen. He wears 5.5 L continuous. He does have shortness of breath on exertion, it has not progressed. He has a cough that is productive of green-colored sputum. He denies any hemoptysis. He occasionally has wheezing but denies any chest tightness, chest pain or palpitations. He has not had any fever, chills or body aches. He does report that it is sometimes difficult to expectorate his sputum. If you recall, the last office visit Daliresp was ordered, unfortunately this medication was $300 per month and that was cost prohibitive for him. Intake Vital Signs 07/29/23 08:54 09/12/23 11:20 02/02/24 07:44 Height 5 ft 9 in 5 ft 9 in 5 ft 9 in Weight: 178 lb 4 oz 171 lb BMI 26.3 25.2 BP 115/76 128/69 H Blood Pressure Location Rt brachial Lt brachial Position Sitting Sitting Respiration 18 18 Pulse 73 68 Pulse Source Monitor Monitor Temp 98.2 F 97.7 F L Temperature Source Temporal Artery Temporal Artery Pulse Oximetry (%) 93 99 Oxygen Delivery Method nasal canula nasal canula Oxygen Flow Rate (L/min) 5 4 Intake Visit Reasons: 6 M FU Chief Complaint: f/u COPD Automation Controls Expert Required: No DME Vendor: MAYA Accompanied by: Self Is patient in pain?: No Allergies tiotropium (From Spiriva with HandiHaler) Adverse Reaction (Severe, Verified 02/02/24 10:47) Decreased Urination cyanocobalamin (vitamin B12) Adverse Reaction (Verified 02/02/24 10:47) Other Medications ???Medication ???Instructions ???Recorded ???Confirmed ???Type acetaminophen 500 mg capsule 500 - 1,000 mg PO DAILY PRN PRN 10/25/19 02/02/24 History Pain Or Fever aspirin 81 mg tablet,delayed 81 mg PO DAILY@1999 heart health 12/24/19 02/02/24 History release albuterol sulfate 90 mcg/actuation 2 puff inhalation Q4H PRN 10/22/20 02/02/24 Rx aerosol inhaler shortness of breath or wheezing #8.5 grams nitroglycerin 0.4 mg sublingual 0.4 mg sublingual Q5-15M PRN chest 03/22/22 02/02/24 Rx tablet pain #25 tabs albuterol sulfate 2.5 mg/3 mL 2.5 mg (3 mL) inhalation Q4H PRN 05/06/22 02/02/24 Rx (0.083 %) solution for nebulization shortness of breath or wheezing #180 mL Handicap Placcard #1 ea 07/29/22 02/02/24 Rx arformoterol 15 mcg/2 mL solution 15 mcg (2 mL) inhalation BID #120 10/07/22 02/02/24 Rx for nebulization (Brovana) mL ipratropium 0.5 mg-albuterol 3 mg 3 ml inhalation Q6H PRN shortness 10/07/22 02/02/24 Rx (2.5 mg base)/3 mL nebulization of breath or wheezing #90 mL soln budesonide 0.5 mg/2 mL suspension 0.5 mg (2 mL) inhalation BID #120 10/15/22 02/02/24 Rx for nebulization mL metoprolol succinate 25 mg 12.5 mg (1/2 x 25 mg) PO DAILY #45 08/01/23 02/02/24 Rx tablet,extended release 24 hr tabs isosorbide mononitrate 30 mg 30 mg PO DAILY #90 tabs 08/11/23 02/02/24 Rx tablet,extended release 24 hr losartan 25 mg tablet 25 mg PO BID #180 tabs 08/11/23 02/02/24 Rx rosuvastatin 20 mg tablet 20 mg PO DAILY #90 tabs 09/12/23 02/02/24 Rx Have you fallen in the past year?: No (more content not included)... Normal [facility] Basophil percentageOrdered B y: Wilberto Tillman on 10-24-2023 Bilirubin [Mass/Vol] 0.40 mg/dL 0.20-1.00 [facility] Comment on above: For patients on eltr ombopag therapy, use of Dimension [facility] TBIL is not recommended. Cholesterol [Mass/Vol] 120 mg/dL <200 [facility] Comment on above: <200 mg/dL Desirable 200-240 mg/dL Borderline >240 mg/dL High Risk Protein [Mass/Vol] 7.4 g/dL 6.4-8.2 [facility] Triglyceride [Mass/Vol] 48 mg/dL <199 [facility] Comment on above: The drugs N-Acetylcy steine and Metamizole may falsely depress this assay.Serum Triglycerides Reference Interval Normal <150 mg/dL Borderline high 150 - 199 mg/dL High 200 - 499 mg/dL Very High > or = 500 mg/dL Direct bilirubinOrdered By: Wilberto Tillman on 10-24-2023 Bilirubin.direct [Mass/Vol] 0.15 mg/dL 0.00-0.30 [facility] Laboratory - Chemistry and C hemistry - challengeOrdered By: Wilberto Tillman on 10-24-2023 ALP [Catalytic activity/Vol] 89 U/L 45-117 [facility] ALT [Catalytic activity/Vol] 15 U/L 16-61 [facility] Cholesterol in HDL [Mass/Vol] 52 mg/dL >40 [facility] Comment on above: The drugs N-Acetylcy steine and Metamizole may falsely depress this assay. Reference Range HDL <40 mg/dL Low HDL Cholesterol HDL >or= 60 mg/dL High HDL Cholesterol Cholesterol in LDL [Mass/Vol] 58 mg/dL 0-130 [facility] Globulin (S) [Mass/Vol] 4.1 g/dL 2.2-4.2 [facility] No Panel InformationOrdered By: Wilberto Tillman on 10-24-2023 VLDL Cholesterol 10 mg/dL 5-40 [facility] Thin prep Papanicolaou smear with manual screeningOrdered By: Wilberto Tillman on 10-24-2023 Thin prep Papanicolaou smear with manual screening 3.3 g/dL 3.2-5.0 [facility] Thin prep Papanicolaou smear with manual screening 16 U/L 15-37 [facility] .Auto Diffon 07-07-2023 Basophil, Absolute 0.1 10 3/mcL Normal 0.0-0.3 [facility] ([place]) Comment on above: Performed By: #### A NICO, LIPID, ADIFF, GFR, CBC, PSA, CMP #### [address] [address] Basophils/100 WBC (Bld) 0.7 % Normal 0.0-2.5 [facility] ([place]) Comment on above: Performed By: #### A NICO, LIPID, ADIFF, GFR, CBC, PSA, CMP #### [address] [address] Eosinophil, Absolute 0.2 10 3/mcL Normal 0.0-0.7 [facility] ([place]) Comment on above: Performed By: #### A NICO, LIPID, ADIFF, GFR, CBC, PSA, CMP #### [address] [address] Eosinophils/100 WBC (Bld) 1.9 % Normal 0.0-6.0 [facility] ([place]) Comment on above: Performed By: #### A NICO, LIPID, ADIFF, GFR, CBC, PSA, CMP #### [address] [address] Lymphocyte, Absolute 1.1 10 3/mcL Normal 0.9-4.3 [facility] ([place]) Comment on above: Performed By: #### A NICO, LIPID, ADIFF, GFR, CBC, PSA, CMP #### [address] [address] Lymphocytes/100 WBC (Bld) 11.7 % Low 20.0-40.0 [facility] ([place]) Comment on above: Performed By: #### A NICO, LIPID, ADIFF, GFR, CBC, PSA, CMP #### [address] [address] Monocyte, Absolute 0.8 10 3/mcL Normal 0.1-1.4 [facility] ([place]) Comment on above: Performed By: #### A NICO, LIPID, ADIFF, GFR, CBC, PSA, CMP #### [address] [address] Monocytes/100 WBC (Bld) 9.1 % Normal 2.0-13.0 [facility] ([place]) Comment on above: Performed By: #### A NICO, LIPID, ADIFF, GFR, CBC, PSA, CMP #### [address] [address] Neutrophils/100 WBC (Bld) 76.6 % High 50.0-75.0 [facility] ([place]) Comment on above: Performed By: #### A NICO, LIPID, ADIFF, GFR, CBC, PSA, CMP #### [address] [address] .GFRon 07-07-2023 GFR >60 Normal [facility] ([place]) Comment on above: Result Comment: GFR Population mean for , Non- Americans Ages 20-29 = 116 mL/min/1.73 sq.m. Ages 30-39 = 107 mL/min/1.73 sq.m. Ages 40-49 = 99 mL/min/1.73 sq.m. Ages 50-59 = 93 mL/min/1.73 sq.m. Ages 60-69 = 85 mL/min/1.73 sq.m. Ages 70+ = 75 mL/min/1.73 sq.m. Chronic Kidney Disease: Less than 60 mL/min/1.73 square meters End Stage Renal Disease: Less than 15 mL/min/1.73 square meters Performed By: #### A NICO, LIPID, ADIFF, GFR, CBC, PSA, CMP #### [address] [address] GFR Non- >60 Normal [facility] ([place]) Comment on above: Result Comment: GFR Population mean for , Non- Americans Ages 20-29 = 116 mL/min/1.73 sq.m. Ages 30-39 = 107 mL/min/1.73 sq.m. Ages 40-49 = 99 mL/min/1.73 sq.m. Ages 50-59 = 93 mL/min/1.73 sq.m. Ages 60-69 = 85 mL/min/1.73 sq.m. Ages 70+ = 75 mL/min/1.73 sq.m. Chronic Kidney Disease: Less than 60 mL/min/1.73 square meters End Stage Renal Disease: Less than 15 mL/min/1.73 square meters Performed By: #### A NICO, LIPID, ADIFF, GFR, CBC, PSA, CMP #### [address] [address] .NEUABSon 07-07-2023 Neutrophil, Absolute 7.1 10 3/mcL Normal 2.3-8.1 [facility] ([place]) Comment on above: Performed By: #### A NICO, LIPID, ADIFF, GFR, CBC, PSA, CMP #### [address] [address] CBCon 07-07-2023 Erythrocyte distribution width (RBC) [Ratio] 12.8 % Normal 11.5-15.5 [facility] ([place]) Comment on above: Performed By: #### A NICO, LIPID, ADIFF, GFR, CBC, PSA, CMP #### [address] [address] Hematocrit (Bld) [Volume fraction] 42.0 % Normal 40.0-52.0 [facility] ([place]) Comment on above: Performed By: #### A NICO, LIPID, ADIFF, GFR, CBC, PSA, CMP #### [place] [address] Hgb 14.1 G/dL Normal 13.0-17.5 [facility] ([place]) Comment on above: Performed By: #### A NICO, LIPID, ADIFF, GFR, CBC, PSA, CMP #### [place] [address] MCH (RBC) [Entitic mass] 31.9 pg Normal 27.0-33.0 [facility] ([place]) Comment on above: Performed By: #### A NICO, LIPID, ADIFF, GFR, CBC, PSA, CMP #### [place] [address] MCHC 33.5 G/dL Normal 32.0-36.0 [facility] ([place]) Comment on above: Performed By: #### A NICO, LIPID, ADIFF, GFR, CBC, PSA, CMP #### [place] [address] MCV (RBC) [Entitic vol] 95.1 fL Normal 81.0-100.0 [facility] ([place]) Comment on above: Performed By: #### A NICO, LIPID, ADIFF, GFR, CBC, PSA, CMP #### [place] [address] Platelet 305 10 3/mcL Normal 150-450 [facility] ([place]) Comment on above: Performed By: #### A NICO, LIPID, ADIFF, GFR, CBC, PSA, CMP #### [place] [address] Platelet mean volume (Bld) [Entitic vol] 7.8 fL Normal 6.4-10.5 [facility] ([place]) Comment on above: Performed By: #### A NICO, LIPID, ADIFF, GFR, CBC, PSA, CMP #### [place] [address] RBC 4.42 10 6/mcL Low 4.50-6.00 [facility] ([place]) Comment on above: Performed By: #### A NICO, LIPID, ADIFF, GFR, CBC, PSA, CMP #### [address] [address] WBC 9.3 10 3/mcL Normal 4.5-10.8 [facility] ([place]) Comment on above: Performed By: #### A NICO, LIPID, ADIFF, GFR, CBC, PSA, CMP #### [address] [address] CMPon 07-07-2023 Albumin Level 3.5 G/dL Normal 3.2-4.8 [facility] ([place]) Comment on above: Performed By: #### A NICO, LIPID, ADIFF, GFR, CBC, PSA, CMP #### [address] [address] Albumin/Globulin [Mass ratio] 1.0 {ratio} Normal 0.9-1.6 [facility] ([place]) Comment on above: Performed By: #### A NICO, LIPID, ADIFF, GFR, CBC, PSA, CMP #### [address] [address] ALP [Catalytic activity/Vol] 103 U/L Normal 38-126 [facility] ([place]) Comment on above: Performed By: #### A NICO, LIPID, ADIFF, GFR, CBC, PSA, CMP #### [address] [address] ALT [Catalytic activity/Vol] 14 U/L Normal 12-55 [facility] ([place]) Comment on above: Performed By: #### A NICO, LIPID, ADIFF, GFR, CBC, PSA, CMP #### [address] [address] AST [Catalytic activity/Vol] 17 U/L Normal 8-34 [facility] ([place]) Comment on above: Performed By: #### A NICO, LIPID, ADIFF, GFR, CBC, PSA, CMP #### [place] [id number] Bili Total 0.60 mg/dL Normal 0.20-1.20 [facility] ([place]) Comment on above: Result Comment: Use of this assay is not recommended for patients undergoing treatment with eltrombopag due to the potential for falsely elevated results. Performed By: #### A NICO, LIPID, ADIFF, GFR, CBC, PSA, CMP #### [address] [address] BUN/Creatinine Ratio 13.5 ratio Normal 10.0-22.0 [facility] ([place]) Comment on above: Performed By: #### A NICO, LIPID, ADIFF, GFR, CBC, PSA, CMP #### [place] [id number] Calcium [Mass/Vol] 9.0 mg/dL Normal 8.7-10.4 [facility] ([place]) Comment on above: Performed By: #### A NICO, LIPID, ADIFF, GFR, CBC, PSA, CMP #### [place] [id number] Chloride [Moles/Vol] 106 mmol/L Normal 98-110 [facility] ([place]) Comment on above: Performed By: #### A NICO, LIPID, ADIFF, GFR, CBC, PSA, CMP #### [place] [id number] CO2 [Moles/Vol] 32 mmol/L Normal 22-32 [facility] ([place]) Comment on above: Performed By: #### A NICO, LIPID, ADIFF, GFR, CBC, PSA, CMP #### [place] [id number] Creatinine [Mass/Vol] 0.89 mg/dL Normal 0.60-1.40 [facility] ([place]) Comment on above: Performed By: #### A NICO, LIPID, ADIFF, GFR, CBC, PSA, CMP #### [place] [id number] Electrolyte Balance 4.0 mEq/L Normal 4.0-15.0 [facility] ([place]) Comment on above: Performed By: #### A NICO, LIPID, ADIFF, GFR, CBC, PSA, CMP #### [address] [address] Globulin 3.4 G/dL Normal 1.5-3.8 [facility] ([place]) Comment on above: Performed By: #### A NICO, LIPID, ADIFF, GFR, CBC, PSA, CMP #### [address] [address] Glucose [Mass/Vol] 93 mg/dL Normal 82-115 [facility] ([place]) Comment on above: Performed By: #### A NICO, LIPID, ADIFF, GFR, CBC, PSA, CMP #### [address] [address] Potassium [Moles/Vol] 4.8 mmol/L Normal 3.5-5.0 [facility] ([place]) Comment on above: Performed By: #### A NICO, LIPID, ADIFF, GFR, CBC, PSA, CMP #### [address] [address] Sodium [Moles/Vol] 142 mmol/L Normal 136-145 [facility] ([place]) Comment on above: Performed By: #### A NICO, LIPID, ADIFF, GFR, CBC, PSA, CMP #### [address] [address] Total Protein 6.9 G/dL Normal 5.7-8.2 [facility] ([place]) Comment on above: Result Comment: No te - New Reference Range in effect 20 Performed By: #### A NICO, LIPID, ADIFF, GFR, CBC, PSA, CMP #### [address] [address] Urea nitrogen [Mass/Vol] 12.0 mg/dL Normal 8.0-22.0 [facility] ([place]) Comment on above: Performed By: #### A NICO, LIPID, ADIFF, GFR, CBC, PSA, CMP #### [address] [address] LIPIDon 07-07-2023 Cholesterol [Mass/Vol] 160 mg/dL Normal 50-199 [facility] ([place]) Comment on above: Result Comment: Chol esterol Reference Interval: Less than 200 Desirable 200-239 Borderline high risk 240 and above High risk Performed By: #### A NICO, LIPID, ADIFF, GFR, CBC, PSA, CMP #### [address] [address] Cholesterol in HDL [Mass/Vol] 56 mg/dL Normal 40-59 [facility] ([place]) Comment on above: Performed By: #### A NICO, LIPID, ADIFF, GFR, CBC, PSA, CMP #### [address] [address] Cholesterol in LDL [Mass/Vol] 93 mg/dL Normal 0-129 [facility] ([place]) Comment on above: Performed By: #### A NICO, LIPID, ADIFF, GFR, CBC, PSA, CMP #### [address] [address] Triglyceride [Mass/Vol] 56 mg/dL Normal 3-149 [facility] ([place]) Comment on above: Performed By: #### A NICO, LIPID, ADIFF, GFR, CBC, PSA, CMP #### [address] [address] PSAon 07-07-2023 Prostate Specific Antigen 0.55 ng/mL Normal 0.02-4.00 [facility] ([place]) Comment on above: Result Comment: Shelby ent results determined by assays using different manufacturers for methods may not be comparable. Performed By: #### A NICO, LIPID, ADIFF, GFR, CBC, PSA, CMP #### [address] [address] .GFRon 01-07-2023 GFR >60 Normal [facility] ([place]) Comment on above: Result Comment: GFR Population mean for , Non- Americans Ages 20-29 = 116 mL/min/1.73 sq.m. Ages 30-39 = 107 mL/min/1.73 sq.m. Ages 40-49 = 99 mL/min/1.73 sq.m. Ages 50-59 = 93 mL/min/1.73 sq.m. Ages 60-69 = 85 mL/min/1.73 sq.m. Ages 70+ = 75 mL/min/1.73 sq.m. Chronic Kidney Disease: Less than 60 mL/min/1.73 square meters End Stage Renal Disease: Less than 15 mL/min/1.73 square meters Performed By: #### L IPID, BMP, GFR, HCV1, TCANC #### [address] [address] GFR Non- >60 Normal [facility] ([place]) Comment on above: Result Comment: GFR Population mean for , Non- Americans Ages 20-29 = 116 mL/min/1.73 sq.m. Ages 30-39 = 107 mL/min/1.73 sq.m. Ages 40-49 = 99 mL/min/1.73 sq.m. Ages 50-59 = 93 mL/min/1.73 sq.m. Ages 60-69 = 85 mL/min/1.73 sq.m. Ages 70+ = 75 mL/min/1.73 sq.m. Chronic Kidney Disease: Less than 60 mL/min/1.73 square meters End Stage Renal Disease: Less than 15 mL/min/1.73 square meters Performed By: #### L IPID, BMP, GFR, HCV1, TCANC #### [address] [address] BMPon 01-07-2023 BUN/Creatinine Ratio 14.8 ratio Normal 10.0-22.0 [facility] ([place]) Comment on above: Performed By: #### L IPID, BMP, GFR, HCV1, TCANC #### [address] [address] Calcium [Mass/Vol] 9.3 mg/dL Normal 8.7-10.4 [facility] ([place]) Comment on above: Performed By: #### L IPID, BMP, GFR, HCV1, TCANC #### [address] [address] Chloride [Moles/Vol] 107 mmol/L Normal 98-110 [facility] ([place]) Comment on above: Performed By: #### L IPID, BMP, GFR, HCV1, TCANC #### [address] [address] CO2 [Moles/Vol] 28 mmol/L Normal 22-32 [facility] ([place]) Comment on above: Performed By: #### L IPID, BMP, GFR, HCV1, TCANC #### [address] [address] Creatinine [Mass/Vol] 0.88 mg/dL Normal 0.60-1.40 [facility] ([place]) Comment on above: Performed By: #### L IPID, BMP, GFR, HCV1, TCANC #### [address] [address] Electrolyte Balance 7.0 mEq/L Normal 4.0-15.0 [facility] ([place]) Comment on above: Performed By: #### L IPID, BMP, GFR, HCV1, TCANC #### [place] [id number] Glucose [Mass/Vol] 90 mg/dL Normal 82-115 [facility] ([place]) Comment on above: Performed By: #### L IPID, BMP, GFR, HCV1, TCANC #### [address] [address] Potassium [Moles/Vol] 5.5 mmol/L High 3.5-5.0 [facility] ([place]) Comment on above: Result Comment: Spec imen slightly hemolyzed. Performed By: #### L IPID, BMP, GFR, HCV1, TCANC #### [address] [address] Sodium [Moles/Vol] 142 mmol/L Normal 136-145 [facility] ([place]) Comment on above: Performed By: #### L IPID, BMP, GFR, HCV1, TCANC #### [address] [address] Urea nitrogen [Mass/Vol] 13.0 mg/dL Normal 8.0-22.0 [facility] ([place]) Comment on above: Performed By: #### L IPID, BMP, GFR, HCV1, TCANC #### [place] [id number] HCVon 01-07-2023 Hep C Ab Non-Reactive Normal Non-Reactive [facility] ([place]) Comment on above: Performed By: #### A NICO, LIPID, ADIFF, GFR, CBC, PSA, CMP #### [address] [address] Hep C Ab Int Normal [facility] ([place]) Comment on above: Result Comment: Nonr eactive: Samples with a value < 0.80 are considered nonreactive (negative) for antibodies to HCV. A negative test result does not exclude the possibility of exposure to or infection with HCV. HCV antibodies may be undetectable in some stages of the infection and in some clinical conditions. See Interp Performed By: #### A NICO, LIPID, ADIFF, GFR, CBC, PSA, CMP #### [address] [address] LIPIDon 01-07-2023 Cholesterol [Mass/Vol] 155 mg/dL Normal 50-199 [facility] ([place]) Comment on above: Result Comment: Chol esterol Reference Interval: Less than 200 Desirable 200-239 Borderline high risk 240 and above High risk Performed By: #### A NICO, LIPID, ADIFF, GFR, CBC, PSA, CMP #### [address] [address] Cholesterol in HDL [Mass/Vol] 57 mg/dL Normal 40-59 [facility] ([place]) Comment on above: Performed By: #### A NICO, LIPID, ADIFF, GFR, CBC, PSA, CMP #### [address] [address] Cholesterol in LDL [Mass/Vol] 81 mg/dL Normal 0-129 [facility] ([place]) Comment on above: Performed By: #### A NICO, LIPID, ADIFF, GFR, CBC, PSA, CMP #### [address] [address] Triglyceride [Mass/Vol] 83 mg/dL Normal 3-149 [facility] ([place]) Comment on above: Performed By: #### A NICO, LIPID, ADIFF, GFR, CBC, PSA, CMP #### [address] [address] TCANCon 01-07-2023 Test cancelled: CBC Normal [facility] ([place]) Comment on above: Performed By: #### L IPID, BMP, GFR, HCV1, TCANC #### [facility] [address] [place] [address] Basophil percentageon 2021 Chloride [Moles/Vol] 109 mmol/L 98-107 [facility] Work Phone: Glucose [Mass/Vol] 98 mg/dL 74-106 [facility] Work Phone: Potassium [Moles/Vol] 4.7 mmol/L 3.5-5.1 [facility] Work Phone: Sodium [Moles/Vol] 141 mmol/L 136-145 [facility] Work Phone: Laboratory - Chemistry and C hemistry - challengeon 12-14-2021 CO2 [Moles/Vol] 29.0 mmol/L 21.0-32.0 [facility] Work Phone: Natriuretic peptide B (Bld) [Mass/Vol] 84.0 pg/mL 0-100 [facility] Work Phone: Urea nitrogen/Creatinine [Mass ratio] 13.9 mg/mg 10-20 [facility] Work Phone: No Panel Informationon 12-14 Estimated GFR (MDRD) Amer 101 mL/min >60 [facility] Work Phone: Comment on above: GFR Calc Estimated GFR (MDRD) Non-Af Amer 83 mL/min >60 [facility] Work Phone: Comment on above: Non- GFR Calc Serum or plasma calcium todd urement (mass/volume)on 12-14-2021 Calcium [Mass/Vol] 8.7 mg/dL 8.5-10.1 [facility] Work Phone: Serum or plasma creatinine m easurement (mass/volume)on 12-14-2021 Creatinine [Mass/Vol] 0.93 mg/dL 0.70-1.30 [facility] Work Phone: Comment on above: The validity of the calculated GFR & GFRAA in patients over 70 years has not been determined. Clinical correlation is essential. Serum or plasma urea nitroge n measurement (mass/volume)on 12-14-2021 Urea nitrogen [Mass/Vol] 13 mg/dL 7-18 [facility] Work Phone: Thin prep Papanicolaou smear with manual screeningon 12-14-2021 Thin prep Papanicolaou smear with manual screening 3 5-15 [facility] Work Phone: LABORATORYOrdered By: Michoacano Carty on 07-09-2021 Albumin BCP dye [Mass/Vol] 3.9 G/dL Invalid Interpretation Code 3.4 - 4.8 G/dL AO ADM SS Albumin/Globulin [Mass ratio] 1.2 {ratio} Invalid Interpretation Code 1.1 - 2.5 ratio AO ADM SS ALP [Catalytic activity/Vol] 98 U/L Invalid Interpretation Code 40 - 135 U/L AO ADM SS ALT With P-5'-P [Catalytic activity/Vol] 19 U/L Invalid Interpretation Code 16 - 63 U/L AO ADM SS AST With P-5'-P [Catalytic activity/Vol] 16 U/L Invalid Interpretation Code 10 - 40 U/L AO ADM SS Bilirubin [Mass/Vol] 0.7 mg/dL Invalid Interpretation Code 0.2 - 1.0 mg/dL AO ADM SS Bilirubin.direct [Mass/Vol] 0.2 mg/dL Invalid Interpretation Code 0.0 - 0.2 mg/dL AO ADM SS Cholesterol [Mass/Vol] 163 mg/dL Invalid Interpretation Code 0 - 200 mg/dL AO ADM SS Cholesterol in HDL [Mass/Vol] 51 mg/dL Invalid Interpretation Code 40 - 60 mg/dL AO ADM SS Cholesterol in LDL [Mass/Vol] 92 mg/dL Invalid Interpretation Code 0 - 130 mg/dL AO ADM SS Globulin 3.3 G/dL Invalid Interpretation Code AO ADM SS Protein [Mass/Vol] 7.2 G/dL Invalid Interpretation Code 6.4 - 8.2 G/dL AO ADM SS Triglyceride [Mass/Vol] 98 mg/dL Invalid Interpretation Code 0 - 150 mg/dL AO ADM SS LABORATORYOrdered By: Soledad Donohue on 07-09-2021 Bili Indirect 0.5 mg/dL Invalid Interpretation Code AO Chemistry S Vital Signs Date Time Vital Sign Value Performing Clinician Faci hennyy 11-19-2024 10:46-0400 Heart rate 71 /min Dr. Fernandez Baig DO Work Phone: [facility] 11-19-2024 10:46-0400 Respiratory rate 16 /min Dr. Fernandez Baig DO Work Phone: [facility] 11-19-2024 09:09-0400 Body temperature 97.9 [degF] Dr. Fernandez Baig DO Work Phone: [facility] 11-19-2024 09:09-0400 Diastolic blood pressure 72 mm[Hg] Dr. Fernandez Baig DO Work Phone: [facility] 11-19-2024 09:09-0400 Inhaled oxygen flow rate 6 L/min Dr. Fernandez Baig DO Work Phone: [facility] 11-19-2024 09:09-0400 SaO2% (BldA) [Mass fraction] 98 % Dr. Fernandez Baig DO Work Phone: [facility] 11-19-2024 09:09-0400 Systolic blood pressure 133 mm[Hg] Dr. Fernandez Baig DO Work Phone: [facility] 11-16-2024 10:45-0400 Body height 175.[address] Fernandez Baig DO Work Phone: [facility] 11-16-2024 10:45-0400 Body weight 81.[address] Fernandez Baig DO Work Phone: [facility] 11-15-2024 15:09-0400 Body mass index (BMI) [Ratio] 26.6 kg/m2 Dr. Fernandez Baig DO Work Phone: [facility] 11-15-2024 14:00-0400 Diastolic blood pressure 85 mm[Hg] Dr. Fernandez Baig DO Work Phone: [facility] 11-15-2024 14:00-0400 Inhaled oxygen flow rate 5 L/min Dr. Fernandez Baig DO Work Phone: [facility] 11-15-2024 14:00-0400 SaO2% (BldA) [Mass fraction] 94 % Dr. Fernandez Baig DO Work Phone: [facility] 11-15-2024 14:00-0400 Systolic blood pressure 130 mm[Hg] Dr. Fernandez Baig DO Work Phone: [facility] 11-15-2024 13:05-0400 Body temperature 98.7 [degF] Dr. Fernandez Baig DO Work Phone: [facility] 11-15-2024 13:05-0400 Heart rate 83 /min Dr. Fernandez Baig DO Work Phone: [facility] 11-15-2024 13:05-0400 Respiratory rate 21 /min Dr. Fernandez Baig DO Work Phone: [facility] 11-15-2024 10:00-0400 Body height 175.[address] Fernandez Baig DO Work Phone: [facility] 09-12-2024 07:50-0500 Body mass index (BMI) [Ratio] 26.6 kg/m2 Dr. Fernandez Baig DO Work Phone: [facility] 09-12-2024 07:50-0500 Body temperature 98.4 [degF] Dr. Fernandez Baig DO Work Phone: [facility] 09-12-2024 07:50-0500 Body weight 81.[address] Fernandez Baig DO Work Phone: [facility] 09-12-2024 07:50-0500 Diastolic blood pressure 73 mm[Hg] Dr. Fernandez Baig DO Work Phone: [facility] 09-12-2024 07:50-0500 Heart rate 72 /min Dr. Fernandez Baig DO Work Phone: [facility] 09-12-2024 07:50-0500 Inhaled oxygen flow rate 4 L/min Dr. Fernandez Baig DO Work Phone: [facility] 09-12-2024 07:50-0500 Respiratory rate 20 /min Dr. Fernandez Baig DO Work Phone: [facility] 09-12-2024 07:50-0500 SaO2% (BldA) [Mass fraction] 90 % Dr. Fernandez Baig DO Work Phone: [facility] 09-12-2024 07:50-0500 Systolic blood pressure 123 mm[Hg] Dr. Fernandez Baig DO Work Phone: [facility] 09-11-2024 10:38-0500 Body mass index (BMI) [Ratio] 26.2 kg/m2 Dr. Fernandez Baig DO Work Phone: [facility] 09-11-2024 10:38-0500 Body weight 80.[address] Fernandez Baig DO Work Phone: [facility] 09-11-2024 10:38-0500 Diastolic blood pressure 76 mm[Hg] Dr. Fernandez Baig DO Work Phone: [facility] 09-11-2024 10:38-0500 Heart rate 76 /min Dr. Fernandez Baig DO Work Phone: [facility] 09-11-2024 10:38-0500 Inhaled oxygen flow rate 5 L/min Dr. Fernandez Baig DO Work Phone: [facility] 09-11-2024 10:38-0500 Respiratory rate 18 /min Dr. Fernandez Baig DO Work Phone: [facility] 09-11-2024 10:38-0500 SaO2% (BldA) [Mass fraction] 85 % Dr. Fernandez Baig DO Work Phone: [facility] 09-11-2024 10:38-0500 Systolic blood pressure 144 mm[Hg] Dr. Fernandez Baig DO Work Phone: [facility] 08-14-2024 08:50-0500 Body mass index (BMI) [Ratio] 26.1 kg/m2 Dr. Fernandez Baig DO Work Phone: [facility] 08-14-2024 08:50-0500 Body temperature 97.4 [degF] Dr. Fernandez Baig DO Work Phone: [facility] 08-14-2024 08:50-0500 Body weight 80.[address] Fernandez Baig DO Work Phone: [facility] 08-14-2024 08:50-0500 Diastolic blood pressure 71 mm[Hg] Dr. Fernandez Baig DO Work Phone: [facility] 08-14-2024 08:50-0500 Heart rate 82 /min Dr. Fernandez Baig DO Work Phone: [facility] 08-14-2024 08:50-0500 Inhaled oxygen flow rate 4 L/min Dr. Fernandez Baig DO Work Phone: [facility] 08-14-2024 08:50-0500 Respiratory rate 22 /min Dr. Fernandez Baig DO Work Phone: [facility] 08-14-2024 08:50-0500 SaO2% (BldA) [Mass fraction] 93 % Dr. Fernandez Baig DO Work Phone: [facility] 08-14-2024 08:50-0500 Systolic blood pressure 125 mm[Hg] Dr. Fernandez Baig DO Work Phone: [facility] 09-12-2023 11:20-0500 Body height 175.[address] Fernandez Baig Work Phone: [facility] 09-12-2023 11:20-0500 Body mass index (BMI) [Ratio] 26.6 kg/m2 Dr. Fernandez Baig Work Phone: [facility] 09-12-2023 11:20-0500 Body weight 81.[address] Fernandez Baig Work Phone: [facility] 09-12-2023 11:20-0500 Diastolic blood pressure 66 mm[Hg] Dr. Fernandez Baig Work Phone: [facility] 09-12-2023 11:20-0500 Heart rate 61 /min Dr. Fernandez Baig Work Phone: [facility] 09-12-2023 11:20-0500 Inhaled oxygen flow rate 4 L/min Dr. Fernandez Baig Work Phone: [facility] 09-12-2023 11:20-0500 Respiratory rate 20 /min Dr. Fernandez Baig Work Phone: [facility] 09-12-2023 11:20-0500 SaO2% (BldA) [Mass fraction] 90 % Dr. Fernandez Baig Work Phone: [facility] 09-12-2023 11:20-0500 Systolic blood pressure 123 mm[Hg] Dr. Fernandez Baig Work Phone: [facility] 07-29-2023 08:54-0500 Body mass index (BMI) [Ratio] 26.3 kg/m2 Dr. Fernandez Baig Work Phone: [facility] 07-29-2023 08:54-0500 Body temperature 98.2 [degF] Dr. Fernandez Baig Work Phone: [facility] 07-29-2023 08:54-0500 Body weight 80.[address] Fernandez Baig Work Phone: [facility] 07-29-2023 08:54-0500 Diastolic blood pressure 76 mm[Hg] Dr. Fernandez Baig Work Phone: [facility] 07-29-2023 08:54-0500 Heart rate 73 /min Dr. Fernandez Baig Work Phone: [facility] 07-29-2023 08:54-0500 Inhaled oxygen flow rate 5 L/min Dr. Fernandez Baig Work Phone: [facility] 07-29-2023 08:54-0500 Respiratory rate 18 /min Dr. Fernandez Baig Work Phone: [facility] 07-29-2023 08:54-0500 SaO2% (BldA) [Mass fraction] 93 % Dr. Fernandez Baig Work Phone: [facility] 07-29-2023 08:54-0500 Systolic blood pressure 115 mm[Hg] Dr. Fernandez Baig Work Phone: [facility] 12-14-2021 15:00-0400 Body mass index (BMI) [Ratio] 24.8 kg/m2 Dr. Fernandez Baig Work Phone: [facility] Work Phone: 12-14-2021 15:00-0400 Body weight 78.[address] Fernandez Baig Work Phone: [facility] Work Phone: 12-14-2021 15:00-0400 Diastolic blood pressure 81 mm[Hg] Dr. Fernandez Baig Work Phone: [facility] Work Phone: 12-14-2021 15:00-0400 Heart rate 65 /min Dr. Fernandez Baig Work Phone: [facility] Work Phone: 12-14-2021 15:00-0400 Respiratory rate 18 /min Dr. Fernandez Baig Work Phone: [facility] Work Phone: 12-14-2021 15:00-0400 SaO2% (BldA) [Mass fraction] 94 % Dr. Fernandez Baig Work Phone: [facility] Work Phone: 12-14-2021 15:00-0400 Systolic blood pressure 134 mm[Hg] Dr. Fernandez Baig Work Phone: [facility] Work Phone: 11-03-2021 10:16-0400 Body mass index (BMI) [Ratio] 24.7 kg/m2 Dr. Fernandez Baig Work Phone: [facility] Work Phone: 11-03-2021 10:16-0400 Body temperature 99.3 [degF] Dr. Fernandez Baig Work Phone: [facility] Work Phone: 11-03-2021 10:16-0400 Body weight 78.[address] Fernandez Baig Work Phone: [facility] Work Phone: 11-03-2021 10:16-0400 Diastolic blood pressure 65 mm[Hg] Dr. Fernandez Baig Work Phone: [facility] Work Phone: 11-03-2021 10:16-0400 Heart rate 61 /min Dr. Fernandez Baig Work Phone: [facility] Work Phone: 11-03-2021 10:16-0400 Respiratory rate 16 /min Dr. Fernandez Baig Work Phone: [facility] Work Phone: 11-03-2021 10:16-0400 SaO2% (BldA) [Mass fraction] 95 % Dr. Fernandez Baig Work Phone: [facility] Work Phone: 11-03-2021 10:16-0400 Systolic blood pressure 134 mm[Hg] Dr. Fernandez Baig Work Phone: [facility] Work Phone: Encounters Encounter Date Encounter Type Care Provider Facility Start: 11-19-2024 Non-patient / Non-visit Dr. Rohan Henao MD -[facility] Work Phone: Start: 11-18-2024 Non-patient / Non-visit Dr. Rohan Henao MD -[facility] Work Phone: Start: 11-17-2024 Non-patient / Non-visit Dr. Rohan Henao MD -[facility] Work Phone: Start: 11-16-2024 ambulatory Dario Bar Facility:[facility] Start: 11-16-2024 Non-patient / Non-visit Dr. Dario scott MD -[facility] Start: 11-16-2024 Non-patient / Non-visit Dr. Rohan Henao MD -[facility] Work Phone: Start: 11-15-2024 Non-patient / Non-visit Dr. Rohan Henao MD -[facility] Work Phone: Start: 11-15-2024 ambulatory Fernandez Baig Facility: [facility] Start: 11-15-2024 End: 11-19-2024 Evaluation and management of inpatient Dr. Rohan Henao MD -[facility] Work Phone: Start: 10-26-2024 End: 10-26-2024 Patient encounter procedure Anastasiya Fink AUD Work Phone: Audiology Comment on above: Sensorineural hearin g loss (SNHL) of both ears (Primary Dx); Cochlear implant in place Start: 10-26-2024 End: 10-26-2024 ambulatory ANASTASIYA FINK Facility:[facility] Start: 10-18-2024 End: 10-18-2024 Telephone encounter [facility] [place] Start: 09-12-2024 End: 09-12-2024 Patient encounter procedure Azucena YOUSSEF -[facility] Work Phone: Start: 09-12-2024 End: 09-12-2024 ambulatory Fernandez Baig Facility:[facility] Start: 09-11-2024 End: 09-11-2024 Patient encounter procedure Yung YOUSSEF -[facility] Work Phone: Start: 09-11-2024 End: 09-11-2024 ambulatory Fernandez Baig Facility:[facility] Start: 08-14-2024 End: 08-14-2024 Patient encounter procedure Azucena YOUSSEF -[facility] Work Phone: Start: 08-14-2024 End: 08-14-2024 ambulatory Azucena Bethea PARTS IDENTIFICATION TECHNICIAN Facility:[facility] Start: 07-16-2024 End: 07-20-2024 ambulatory FERNANDEZ BAIG DO Facility:[facility] Start: 06-20-2024 End: 06-21-2024 Telephone encounter [facility] [place] Comment on above: Patient Question Start: 06-19-2024 End: 06-19-2024 ambulatory ANASTASIYA FINK Facility:[facility] Start: 06-19-2024 End: 06-19-2024 Patient encounter procedure Anastasiya Fink AUD Work Phone: Audiology Comment on above: Sensorineural hearin g loss (SNHL) of both ears (Primary Dx); Cochlear implant in place Start: 06-15-2024 End: 06-19-2024 ambulatory FERNANDEZ BAIG DO Facility: Start: 04-16-2024 End: 04-16-2024 Telephone encounter [facility] Start: 04-03-2024 End: 04-03-2024 ambulatory ANASTASIYA FINK Facility:[facility] Start: 04-03-2024 End: 04-03-2024 Patient encounter procedure Anastasiyaben Fink AUD Work Phone: Audiology Comment on above: Bilateral hearing lo ss, unspecified hearing loss type (Primary Dx); Cochlear implant in place Start: 02-02-2024 End: 02-02-2024 ambulatory Azucena Bethea NP Facility:[facility] Start: 10-24-2023 End: 10-24-[address] Fernandez Baig Work Phone: [facility] Work Phone: Start: 10-24-2023 End: 10-24-[address] Fernandez Baig Work Phone: [facility] Work Phone: Start: 09-12-2023 End: 09-12-[address] Fernandez Baig Work Phone: [facility] Work Phone: Start: 07-29-2023 End: 07-29-[address] Fernandez Baig Work Phone: [facility] Work Phone: Start: 07-07-2023 End: 07-12-2023 ambulatory FERNANDEZ BAIG DO Facility:A Start: 01-06-2023 End: 01-10-2023 ambulatory FERNANDEZ BAIG DO Facility:[facility] Start: 12-14-2021 End: 12-14-[address] Fernandez Baig Work Phone: [facility] Start: 12-14-2021 End: 12-14-[address] Fernandez Baig Work Phone: [facility] Start: 11-03-2021 End: 11-03-[address] [facility] Start: 07-09-2021 End: 07-09-[address] CORAZON EARL MD [facility] Procedures Date Procedure Procedure Detail Performing Clinician Start: 11-19-[address] Fernandez Baig DO Work Phone: Start: 11-15-2024 Carbon dioxide measurement, partial pressure Dr. Fernandez Baig DO Work Phone: Start: 11-15-2024 Gases blood o2 saturation only direct todd Dr. Fernandez Baig DO Work Phone: Start: 11-15-2024 Measurement of partial pressure of oxygen in blood Dr. Fernandez Baig DO Work Phone: Start: 11-15-[address] Fernandez Baig DO Work Phone: Start: 11-15-[address] Fernandez Baig DO Work Phone: Start: 11-15-2024 Legionella pneumophila antigen assay Dr. Fernandez Baig DO Work Phone: Start: 11-15-[address] Fernandez Baig DO Work Phone: Start: 11-15-[address] Fernandez Baig DO Work Phone: Start: 11-15-2024 Sars-cov-2 Dr. Fernandez Baig DO Work Phone: Start: 11-15-2024 SARS-CoV-2, Influenza & RSV (PCR) Dr. Fernandez Baig DO Work Phone: Start: 11-15-2024 End: 11-15-2024 Streptococcus pneumoniae antigen assay Dr. Fernandez Baig DO Work Phone: Start: 11-15-2024 CT angiography of chest with contrast Dr. Fernandez Baig DO Work Phone: Start: 11-15-2024 X-ray of chest, PA and lateral views Dr. Fernandez Baig DO Work Phone: Start: 11-15-2024 D-dimer assay, quantitative Dr. Fernanedz altamirano DO Work Phone: Comment on above: D-Dimer ELEVATED (>0.49): Additional brianne dies and clinicalassessments are indicated to conclude diagnosis of:Deep Vein Thrombosis (DVT) or Pulmonary Embolism (PE)CRITICAL VALUE CALLED TO ALTAGRACIA11/15/24 [address].RESULTS READ BACK BY SAME. Start: 06-19-2024 HEARING IMPLANTABLE DEVICES (E.G. COCHLEAR IMPLANTS (CI), BONE ANCHORED (SABINO), SENSORY DEVICES) Anastasiya Fink AUD Work Phone: Start: 07-11-2001 History of coronary artery bypass grafting Aortocoronary bypass status Dr. Fernandez Baig Work Phone: Comment on above: CABG x3- ONOFRE to LAD, Free Lt Radial Art samson to the OM branch of CX, reverse SVG from the aorta to the distal RCA 08/01/01; Sternal Rewiring with Debridement 06/20/02 H/O: surgery History of cochl ear implant Dr. Fernandez Baig Work Phone: H/O: vasectomy History of vasectomy Dr. Mabel Baig Work Phone: Plan of Treatment Date Care Activity Detail Author Start: 04-23-2025 End: 04-23-2025 Patient encounter procedure 04/23/2025 10:30 AM EDT Office Visit Audiology [address] [address] Anastasiya Fink, AUD [address] [place] [address] 1 yr follow up Audiology Comment on above: 1 yr follow up Start: 11-19-2024 Patient discharge [facility] Start: 11-19-2024 Care planning and pr oblem solving actions [facility] Start: 11-16-2024 Palliative care [facility] Start: 11-15-2024 [facility] Start: 11-15-2024 End: 11-15-2024 Following clinical pathway protocol [facility] Start: 11-15-2024 Ambulation without limitation [facility] Start: 11-15-2024 Assessment of risk o f venous thromboembolism [facility] Start: 11-15-2024 Bacteria identified in Sputum by Culture [facility] Start: 11-15-2024 Consultation [facility] Start: 11-15-2024 Elevation of head of bed [facility] Start: 11-15-2024 Incentive spirometry [facility] Start: 11-15-2024 Insertion of cathete r into peripheral vein [facility] Start: 11-15-2024 Measuring intake and output [facility] Start: 11-15-2024 Oxygen therapy [facility] Start: 11-15-2024 Patient education [facility] Start: 11-15-2024 Physiotherapy of chest [facility] Start: 11-15-2024 Providing care accor ding to standard [facility] Start: 11-15-2024 Referral to occupati onal therapist [facility] Start: 11-15-2024 Referral to service [facility] Start: 11-15-2024 Taking nasal swab [facility] Start: 11-15-2024 Legionella pneumophi la Ag [Presence] in Urine [facility] Start: 11-15-2024 Respiratory pathogen s DNA and RNA panel - Respiratory specimen by MELY with probe detection [facility] Start: 11-15-2024 Streptococcus pneumo niae antigen assay [facility] Start: 11-15-2024 End: 11-15-2024 [facility] Start: 11-15-2024 Verification routine [facility] Start: 11-15-2024 Continuous pulse oximetry [facility] Start: 11-15-2024 Dual pressure sponta neous ventilation support [facility] Start: 11-15-2024 Gas panel - Arterial blood [facility] Start: 11-15-2024 Admission procedure [facility] Start: 11-15-2024 End: 11-15-2024 [facility] Start: 10-26-2024 End: 10-26-2024 Patient encounter procedure 10/26/2024 2:30 PM EDT Office Visit Audiology [address] [place] [address] Anastasiya Fink, AUD [address] [place] [address] pair THAYER and CI Audiology Comment on above: pair THAYER and CI Start: 10-25-2024 Covid-19 Vaccine () Covid-19 Vaccine () [facility] Start: 07-11-2024 Advance Directive Discussion Advance Directive Discussion [facility] Start: 06-19-2024 End: 06-19-2024 Patient encounter procedure 06/19/2024 10:30 AM EST Office Visit Audiology [address] [address] Anastasiya Fink, AUD [address] [place] [address] cochlear implant Audiology Comment on above: cochlear implant Start: 03-11-2024 Covid-19 Vaccine ( season) Covid-19 Vaccine ( season) [facility] Start: 03-11-2024 Influenza vaccination Influenz a Vaccine (#1) [facility] Start: 07-11-2023 Advance Directive Discussion Advance Directive Discussion [facility] Start: 2019 RSV Vaccine (1 - 1-d ose 75+ series) RSV Vaccine (1 - 1-dose 75+ series) [facility] Start: 1994 Shingrix Vaccine (1 of 2) Churchill grix Vaccine (1 of 2) [facility] Start: 1989 Diabetes Screening Diabetes Screenin g [facility] Start: 1963 Urine microalbumin profile DTa P,Tdap,Td Vaccine (1 - Tdap) [facility] Start: 1962 Anxiety Screening Anxiety Screening [facility] Start: 1962 Depression Screening Depression Scre ening [facility] Anion gap in Serum o r Plasma [facility] BUN/Creatinine ratio [facility] Calcium [Mass/volume ] in Serum or Plasma [facility] Carbon dioxide, tota l [Moles/volume] in Central venous blood [facility] Creatinine [Mass/vol ume] in Serum or Plasma [facility] Erythrocyte mean corpuscular volume determination [facility] Glucose [Mass/volume ] in Serum or Plasma [facility] Hematocrit [Volume Fraction] of Blood [facility] Hemoglobin [Mass/vol ume] in Blood [facility] Leukocytes [#/volume ] in Blood [facility] Magnesium measurement [facility] Mean corpuscular hemoglobin concentration determination [facility] Mean corpuscular hemoglobin determination [facility] Measurement of renal function [facility] Neutrophil count [facility] Neutrophil percent differential count [facility] Patient referral [facility] Work Phone: Platelets [#/volume] in Blood [facility] Potassium measurement [facility] Red blood cell count [facility] Red cell distributio n width determination [facility] Serum chloride measurement [facility] Sodium measurement [facility] Troponin T.cardiac [Mass/volume] in Serum or Plasma by High sensitivity method [facility] Urea nitrogen [Mass/volume] in Serum or Plasma [facility] Immunizations Immunization Date Immunization Notes Care Provider Fa lashell 04-13-2023 influenza virus vacc ine, unspecified formulation Anastasiya HOLCOMB Work Phone: [facility] 05-04-2022 influenza, injectabl e, quadrivalent, preservative free Dr. Fernandez Baig Work Phone: [facility] 06-10-2021 COVID-19, mRNA, LNP- S, PF, 100 mcg/ 0.5 mL dose; Translations: [Moderna COVID-19 Vaccine] DR CORAZON EARL MD [facility] 09-10-2020 COVID-19, mRNA, LNP- S, PF, 100 mcg/ 0.5 mL dose; Translations: [Moderna COVID-19 Vaccine] DR CORAZON EARL MD [facility] 08-13-2020 COVID-19, mRNA, LNP- S, PF, 100 mcg/ 0.5 mL dose; Translations: [Moderna COVID-19 Vaccine] DR CORAZON EARL MD [facility] 04-23-2020 influenza, injectabl e, quadrivalent, preservative free Dr. Fernandez Baig Work Phone: [facility] 04-23-2020 influenza, seasonal, injectable Dr. Fernandez Baig Work Phone: [facility] Work Phone: 04-23-2020 Fluad Quad (65yr up)(PF) 60 mcg (15 mcg x 4)/0.5mL IM syringe (flu vac Dr. Fernandez Baig Work Phone: [facility] Work Phone: 04-24-2019 pneumococcal polysaccharide vaccine, [address] Fernandez Baig Work Phone: [facility] 04-24-2019 pneumococcal vaccine , unspecified formulation Dr. Fernandez Baig Work Phone: [facility] Work Phone: 04-09-2019 Seasonal trivalent influenza vaccine, adjuvanted, preservative free; Translations: [Fluad ] DR CORAZON EARL MD [facility] 03-11-[address] Fernandez Baig Work Phone: [facility] 04-26-[address] Fernandez Baig Work Phone: [facility] 04-26-2018 Fluad 2017- 65yr up(PF)45 mcg(15 mcgx3)/0.5 mL intramuscular syringe (flu vac Dr. Fernandez Baig Work Phone: [facility] Work Phone: Payers Date Payer Category Payer Private Health Insurance [facility] [id number] 2024 Self-pay [id number] 2023 Unknown [id number] 2009 Medicare [id number] 2009 Medicare [id number] 1944 Unknown [id number] 1944 Unknown [id number] .627 1944 Unknown [id number] .627 1944 Unknown [id number] .627 Unknown [id number] [id number] .462 Unknown [id number] 2.16.840.1.176937.3.579.2 .462 Unknown [id number] 2.16.840.1.943721.3.579.2 .462 Unknown [id number] 2.16.840.1.447462.3.579.2 .462 Unknown [id number] 2.16.840.1.715609.3.579.2 .462 Unknown [id number] 2.16.840.1.901918.3.579.2 .462 Unknown [id number] 2.16.840.1.694917.3.579.2 .462 Unknown [id number] 2.16.840.1.458748.3.579.2 .462 Unknown [id number] 2.16.840.1.698474.3.579.2 .462 Unknown [id number] 2.16.840.1.147725.3.579.2 .462 Unknown [id number] 2.16.840.1.521046.3.579.2 .462 Unknown [id number] [id number] .462 Social History Date Type Detail Facility Start: 03-02-2019 End: 11-17-2024 Ex-smoker (finding) [facility] Sex Assigned At [facility] Start: 12-14-2021 End: 09-12-2023 Tobacco smoking status NHIS Unknown if ever smoked [facility] Start: 12-24-2019 Spouse/ Signif icant Other [facility] Start: 12-24-2019 [facility] Start: 1945 Sex Assigned At Male [facility] Start: 1945 Sex assigned at Not on file [facility] Gender identity Not on file [facility] inic Goals Date Patient Goal Desired Activity /State Functional Status Date Assessment Result Facility 11-19-2024 Functional status Ambulates;Chair [facility] Work Phone: Mental Status Date Assessment Result Facility 11-19-2024 Cognitive function Voice/Name [facility] Work Phone: Clinical Notes 04-03-2024 to 11-19-2024 Note Date & Type Note Facility 11-19-2024 Discharge summary [facility] 11-19-2024 Discharge summary [facility] 11-19-2024 Discharge summary Note Date/Time November 19, 2024 12:29pm [facility] Medical Records Department [address] [place] [address] Instructions for Home/Discharge Instructions 11/19/24 1019 MR#: [id number] Acct: [id number] Name: NANETTE MONROY Rep #:[id number] : 1945 79 From: Rohan Cortez PCP: Dr. Fernandez Baig, DO Status:ADM IN Discharge Instructions Diet Discharge Diet: No restrictions DC O2, CPAP, BIPAP needs Home O2 Discharge instructions: Yes Type of respiratory needs?: Oxygen Oxygen frequency: Continuous Continuous oxygen liters per minute: 6 Dressing / Incision Discharge Activity: Return to Normal Activity Weight Bearing Status: Weight bearing as tolerated Dressing / Incision Call your doctor if you observe: - (Discharged with home hospice care.) Follow Up Care When: IN 2 WEEKS Test Results: Test results from this visit will be discussed in further detail at your follow-up appointment, if applicable. Discharge Plan Admission Admit Date/Time: 11/15/24 13:43 Primary Reason for Your Visit: End-stage COPD, pneumonia bilateral, bronchiectasis Attending Provider: Rohan Henao Primary Care Provider: Fernandez Baig Consulting Providers: Jay Cueva; Jermaine Thapa; Ferdinand Shearer; Harsh Manzo; Khai Kaye; Roberto Stark; Tre Cyr; Bette Saez; Carlos Sanchez; Rj Garcia; Jb Cooley; Ginny Brock; Claudine Quezada; Crook,Desiree; Radha,Brian; Nick,Tano; Yonny Cabrales; Slade Saini; Jakob Gallegos; Laura Sam; Doug Lai; Yusuf Stearns; Alexi Gurrola; Klaus Bardales; Azucena Bethea NP; Mathew Low; Khai Heart; Constanza Shearer; Bhavana Tellez; Jenny Tijerina; Naya Livingston PARTS IDENTIFICATION TECHNICIAN; Adrianne Mcqueen Discharge Orders/Prescriptions Prescriptions: New benzonatate 100 mg Capsule 200 mg PO TID PRN (Reason: cough) Qty: 30 0RF dextromethorphan-guaifenesin 60-1,200 mg tablet extended release 12 hr 1 tab PO BID 7 Days Qty: 14 0RF sennosides-docusate sodium [Stimulant Laxative Plus] 8.6-50 mg Tablet 2 tab PO BID Qty: 0 0RF Daily Fiber (psyllium-aspart) 3 gram Powder In Packet 1 packet PO DAILY PRN PRN (Reason: Constipation) Qty: 0 0RF Rx Instructions: Gznx-lxc-xkzscbo prednisone 10 mg tablet 10 mg PO DAILY Qty: 30 0RF Rx Instructions: 40 mg for 3 days 30 mg for 3 days, 20 mg for 3 days,and 10 mg for 3 days levofloxacin 500 mg tablet 500 mg PO DAILY 5 Days Qty: 5 0RF Continued nitroglycerin 0.4 mg tablet, sublingual 0.4 mg SUBLINGUAL Q5-15M PRN (Reason: chest pain) Qty: 25 3RF Rx Instructions: until response; do not exceed 3 doses per event (DME) Handicap Placcard See Rx Instructions .ROUTE .MEDSUPPLY Qty: 1 0RF Rx Instructions: Time Duration: 99 months ipratropium-albuterol 0.5 mg-3 mg(2.5 mg base)/3 mL solution for nebulization 3 ml inhalation DAILY losartan 25 mg tablet 25 mg PO BID Qty: 180 4RF isosorbide mononitrate 30 mg tablet extended release 24 hr 30 mg PO DAILY Qty: 90 4RF Rx Instructions: Takes at 1200 albuterol sulfate 90 mcg/actuation HFA aerosol inhaler 2 puff INHALATION Q4H PRN (Reason: shortness of breath or wheezing) Qty: 8.5 3RF Rx Instructions: administer with spacer albuterol sulfate 2.5 mg /3 mL (0.083 %) solution for nebulization 2.5 mg INHALATION Q4H Qty: 180 6RF Brovana 15 mcg/2 mL solution for nebulization 15 mcg INHALATION BID Qty: 120 11RF budesonide 0.5 mg/2 mL suspension for nebulization 0.5 mg INHALATION BID Qty: 120 11RF guaifenesin 1,200 mg tablet extended release 12hr 1,200 mg PO Q12H Qty: 60 6RF aspirin 81 MG tablet 81 mg PO DAILY@2000 metoprolol succinate 25 mg tablet extended release 24 hr 12.5 mg PO DAILY Qty: 45 4RF rosuvastatin 20 mg tablet 20 mg PO DAILY Qty: 90 4RF Held prednisone 10 mg tablet 10 mg PO DAILY Hold Instructions: Hold it whileshe completes prednisone taper dose Referrals / Follow Up: Fernandez Baig DO [Primary Care Provider] - Within 2 Weeks (Discharged with homehospice care) Disposition Disposition (needs filled in before D/C Order can be placed): Hospice in Home 11/19/24 1229<Electronically signed by Rohan Henao MD>Rohan Henao MD CC: MIKAEL Bethea; MIKAEL Tijerina; MIKAEL Livingston; Dr. Jermaine Thapa MD; Dr. Jay Cueva MD; Dr. Ferdinand Shearer MD; Dr. Khai Kaye MD; Dr. Khai Heart DO; Dr. Harsh Manzo DO; Dr. Roberto Stark MD; Dr. Tre Cyr MD; Dr. Carlos Sanchez MD; Dr. Bhavana Tellez MD; Dr. Constanza Shearer MD; Dr. Rj Garcia MD; Dr. Jb Cooley MD; Dr. Ginny Brock MD; Dr. Claudine Quezada MD; Dr. Desiree Crook MD; Dr. Tano Romero MD; Dr. Brian Garcia MD; Dr. Fernandez Baig DO; Dr. Yonny Cabrales MD; Dr. Laura Sam MD; Dr. Jakob Gallegos MD; Dr. Slade Saini DO; Dr. Yusuf Stearns MD; Dr. Doug Lai DO; Dr. Alexi Gurrola MD; Dr. Klaus Bardales MD; Dr. Julius MD; Mathew Low NP; CARMELITA Vasquez ~ Signed [facility] Work Phone: [phone]) 228-764405-12-2025 Discharge summary Author [facility] Note Date/Time November 19, 2024 12:[address] [facility] Medical Records Department [address] [place] [id number] Discharge Summary 11/19/24 1019 MR#: [id number] Acct: [id number] Name: NANETTE MONROY Rep #:[id number] : 1945 79 From: Rohan Cortez PCP: Dr. Fernandez Baig DO Status:ADM IN Location: [facility]- 1 Providers Date of Admission: 11/15/24 Date of Discharge: 11/19/24 Primary Care Physician: Dr. Fernandez Baig DO Consultations 11/15/24 14:59 Consult: Project Asst / Pulmonary Medicine Routine Consulting Provider: Pulmonary Medicine [facility] Reason for Consult: RESP FAILURE, NEED AIRVO, COPD stage4 EMERGENT Consult: No MD Notified: Yes Date Notified: 11/15/24 Time Notified: 14:35 Method of Notification: Text 11/16/24 14:11 Consult: Hospice / Palliative Care Routine Consulting Provider: [facility] Reason for Consult: end stage copd, resp failure, Bronchiectasis EMERGENT Consult: No MD Notified: Yes Date Notified: 11/16/24 Time Notified: 14:12 Method of Notification: Answering Service Reason For Visit: COPD EXA Diagnosis Discharge Diagnosis (1) Acute on chronic hypoxic respiratory failure: Status: Chronic Code(s): J96.21 - Acute and chronic respiratory failure with hypoxia (2) COPD exacerbation: Status: Chronic Code(s): J44.1 - Chronic obstructive pulmonary disease with (acute) exacerbation Plan This 79-year-old gentleman with end-stage COPD is being admitted for COPD exacerbation 1. Acute on chronic hypoxic respiratory failure due to COPD exacerbation: Patient is being admitted in the PCU. Chest CTA shows no signs of pulmonary embolism but groundglass opacities scattered throughout the lower lobes. Bronchiectatic changes along with bronchial thickening primarily in the lower lobes. With bronchiectasis changes lower lobes, started on IV Zosyn and Zithromax. Project Asst consult. Pneumonia workup ordered. ABG 7.4 on 5 L of oxygen. Start on Airvo as patient is respiratory muscle fatigued and mild going ventilatory failure. Patient is being managed on scheduled bronchodilator, IV Solu-Medrol, Mucinex?DM, Tessalon Perles , incentive spirometry and Pep. 11/16: Pulmonary consult reviewed and appreciated. Patient has end-stage COPD. BNP and procalcitonin unremarkable. Recommended echo. Palliative care was recommended. 11/17: Hospice meeting at 1:30 PM. Further course as per hospice meeting decision 11/18: Patient and family centered home hospice care. Hospice arrangement is being set up at home. Anticipate discharge tomorrow 11/19: Hospice arrangement including oxygen set up at home. Patient is discharged on 5 more days of Levaquin to cover Pseudomonas and strep pneumoniae as per antibiogram, tapering dose of prednisone, Mucinex DM. Compressor Assembler called to inform. Follow- up with PCP and hospice care at home. Patient needs 6L of oxygen at rest. 2. Bilateral pneumonia due to strep pneumoniae and Pseudomonas aeruginosa with history of bronchiectasis and end-stage COPD: Chest x-ray and CT images reviewed. 11/16 continue IV Zosyn. Respiratory panel negative. COVID-19 PCR negative. Gram stain shows 4+ WBC, 4+ GNR, 4+ GPR, 1+ GPC. Urinary antigens negative. Azithromycin discontinued. Doxycycline started. 11/17: Continue antibiotic. Full sputum culture is still pending 11/18: Sputum culture shows Pseudomonas aeruginosa and strep pneumoniae. IV antibiotic broad-spectrum Zosyn changed to IV cefepime. 3. CAD status post CABG: Patient home medications continued. On baby aspirin, Imdur, losartan, metoprolol and rosuvastatin. 11/17: Echo shows EF 55%, mild concentric LVH, stage I diastolic dysfunction and mild AI. Tiny PFO. Trivial to mild MR and TR. 4. Hypertension and dyslipidemia: As mentioned above. Blood pressure in normalrange. 5. Chronic tobacco use, patient quit about a year ago 6. DVT prophylaxis high risk: Enoxaparin 40 mL subcu daily. Discharge medication reconciliation done. Discharge follow-up instructions completed. Discharge process discussed with the patient and all questions wereanswered to patient's satisfaction. Follow with PCP in 1 to 2 weeks Total time spent, exact 35 minutes on discharge meds reconciliation, examination, coordination of care with nurses and ancillary staff, review of imaging and blood test and discussion with the patient on follow-up instructions. Living will/advanced directive/end of life care: Patient does not living will oradvanced directive. His girlfriend who lives for many years is next to kin and present to ED. After discussion of benefits/risks procedures involved with full code, DNR CC arrest and DNR CC, the patient opted for DNR CC arrest with nointubation Patient doesn't want artificial life support including intubation, tube feed, ventilator and/chest compression, and DC shock if needed. Patient is unclear about central line/PICC line or vasopressor if needed. Microbiology Past 72 Hours 11/15/24 15:50 Sputum, Expectorated/Coughed Gram Stain - Final 11/15/24 15:50 Sputum, Expectorated/Coughed Respiratory Culture - Preliminary Streptococcus pneumoniae Pseudomonas aeruginosa 11/15/24 16:40 Mucosa - Nasopharyngeal Respiratory Panel (PCR) - Final 11/15/24 16:40 Mucosa - Nasopharyngeal Coronavirus COVID-19 PCR - Final 11/15/24 15:30 Urine, Clean Catch Legionella Antigen - Final 11/15/24 15:30 Urine, Clean Catch Streptococcus pneumoniae Antigen (M - Final Laboratory Results 11/18/24 04:54: Sodium 139, Potassium 3.9, Chloride 108, Carbon Dioxide 22.2, Anion Gap 9, BUN 24 H, Creatinine 0.96, Estim Creat Clear Calc 61.37, Est GFR (MDRD) Non-Af 80, BUN/Creatinine Ratio 25.3 H, Glucose 116 H, Lactic Acid < 1.0,Calcium 8.5 Echocardiogram 11/16/24 09:29 Interpretation Summary The study was technically difficult. Mild concentric left ventricular hypertrophy. The LV systolic function is normal. EF is 55 %. Stage 1 diastolic dysfunction. Bubble study appears positive for tiny PFO. Mild (1+) aortic valve insufficiency. Trivial to mild mitral and tricuspid valve insufficiency. Clinical Impression(s) from Imaging Studies Chest X-Ray 11/15/24 10:27 IMPRESSION: No active cardiopulmonary disease. Parenchymal scarring and/or subsegmental atelectasis, left lower lobe. Reading Location: [facility] Chest CTA 11/15/24 11:35 IMPRESSION: No signs of pulmonary embolism. Centrilobular emphysematous changes. Ground-glass opacities are scattered throughout the lower lobes. Can not exclude mild inflammation. Bronchiectatic changes along with bronchial thickening primarily in the lower lobes. Reading Location: [facility] Medications at Discharge Home Medications aspirin 81 mg tablet,delayed release 81 mg PO DAILY@1999 [facility] 12/24/19 nitroglycerin 0.4 mg sublingual tablet 0.4 mg sublingual Q5-15M PRN chest pain #25 tabs 03/22/22 Handicap Placcard #1 ea 07/29/22 albuterol sulfate 2.5 mg/3 mL (0.083 %) solution for nebulization 2.5 mg (3 mL) inhalation Q4H #180 mL 08/14/24 albuterol sulfate 90 mcg/actuation aerosol inhaler 2 puff inhalation Q4H PRN shortness of breath or wheezing #8.5 grams 08/14/24 arformoterol 15 mcg/2 mL solution for nebulization (Brovana) 15 mcg (2 mL) inhalation BID #120 mL 08/14/24 budesonide 0.5 mg/2 mL suspension for nebulization 0.5 mg (2 mL) inhalation BID #120 mL 02/04/25 guaifenesin 1,200 mg tablet, extended release 12 hr 1,200 mg PO Q12H #60 tabs 08/14/24 metoprolol succinate 25 mg tablet,extended release 24 hr 12.5 mg (1/2 x 25 mg) PO DAILY #45 TABLETS 08/20/24 rosuvastatin 20 mg tablet 20 mg PO DAILY #90 tabs 08/20/24 ipratropium 0.5 mg-albuterol 3 mg (2.5 mg base)/3 mL nebulization soln 3 ml inhalation DAILY 09/11/24 isosorbide mononitrate 30 mg tablet,extended release 24 hr 30 mg PO DAILY #90 tabs 09/11/24 losartan 25 mg tablet 25 mg PO BID #180 tabs 09/11/24 prednisone 10 mg tablet 10 mg PO DAILY 11/15/24 Held on 11/19/24. Instructions: Hold it whileshe completes prednisone taper dose benzonatate 100 mg capsule 200 mg (2 x 100 mg) PO TID PRN cough #30 caps 11/19/24 dextromethorphan-guaifenesin ER 60 mg-1,200 mg tab,extend release,12hr 1 tab PO BID 7 days #14 tabs 11/19/24 levofloxacin 500 mg tablet 500 mg PO DAILY 5 days #5 tabs 11/19/24 prednisone 10 mg tablet 10 mg PO DAILY #30 tabs 11/19/24 psyllium husk (aspartame) 3 gram oral powder packet (Daily Fiber (psyllium-aspartame)) 1 packet PO DAILY PRN PRN Constipation #0 ea 11/19/24 sennosides 8.6 mg-docusate sodium 50 mg tablet (Stimulant Laxative Plus) 2 tab PO BID #0 tabs 11/19/24 Physical Exam Narrative Seen and examined. Patient feels more comfortable. No dyspnea at rest. Discharged home with hospice care Shortness of breath has improved. Sputum culture growing strep pneumoniae and Pseudomonas aeruginosa Physical exam General: Alert, Oriented x3, Cooperative HEENT: Moderate hearing loss on hearing aids. Atraumatic, PERRLA, EOMI, Normocephalic. Oral: Oral mucosa dry. No Gingival or Mucosal Lesions/ Ulcerations Neck: Supple, No JVD, Negative Carotid Bruits Chest wall/Lungs: Air entry severely diminished in all lung montes. Dyspnea on exertion. Bilateral expiratory rhonchi. Cardiovascular: Regular rate and rhythm, Normal S1,S2, systolic murmur. CABG Abdomen: Bowel Sounds Present, Soft, Non Tender, Non-Distended : No dysuria. No renal angle tenderness. No suprapubic tenderness. Extremities: No edema, Capillary Refill Less than 3 Seconds Skin: No rashes, No breakdown Musculoskeletal: No Tenderness to Palpation of Joints or Extremities. ROM intact. Neurological: Cranial nerves II-XII grossly intact, DTR 2+/4. No acute focal neurological deficit. Psych/Mental Status: Normal Affect, Appropriate. Weight / BMI Weight Weight: 180 lb 0.013 oz Body Mass Index (BMI) 26.6 ABG / Lab / Microbiology Data 11/19/24 04:27 11/19/24 04:27 Laboratory: Laboratory Results - last 24 hr 11/19/24 04:27: WBC 12.4 H, RBC 3.79 L, Hgb 11.7 L, Hct 36.6 L, MCV 96.6 H, MCH 30.9, MCHC 32.0, RDW Std Deviation 47.7 H, RDW Coeff of Crystal 13.4, Plt Count 206,MPV 9.2, Immature Gran % (Auto) 0.600, Neut % (Auto) 72.5 H, Lymph % (Auto) 18.5L, Burt % (Auto) 8.1, Eos % (Auto) 0.2, Baso % (Auto) 0.1, Absolute Neuts (auto)9.0 H, Absolute Lymphs (auto) 2.28, Nucleated RBC % 0, Sodium 139, Potassium 3.8, Chloride 106, Carbon Dioxide 24.1, Anion Gap 9, BUN 21 H, Creatinine 0.86, Estim Creat Clear Calc 68.51, Est GFR (MDRD) Non-Af 88, BUN/Creatinine Ratio 24.2 H, Glucose 88, Calcium 8.5 Microbiology: Microbiology 11/15/24 15:50 Sputum, Expectorated/Coughed Gram Stain - Final 11/15/24 15:50 Sputum, Expectorated/Coughed Respiratory Culture - Final Streptococcus pneumoniae Pseudomonas aeruginosa 11/15/24 16:40 Mucosa - Nasopharyngeal Respiratory Panel (PCR) - Final 11/15/24 16:40 Mucosa - Nasopharyngeal Coronavirus COVID-19 PCR - Final 11/15/24 15:30 Urine, Clean Catch Legionella Antigen - Final 11/15/24 15:30 Urine, Clean Catch Streptococcus pneumoniae Antigen (M - Final D/C Instructions DC O2, CPAP, BIPAP Needs Home O2 Discharge instructions: Yes Type of respiratory needs?: Oxygen Oxygen frequency: Continuous Continuous oxygen liters per minute: 6 DC home with Oxygen: Yes Home O2 MD Review: I have reviewed the oxygen testing, and the patient qualifies for home oxygen equipment and portability. The patient is mobile in the home and the community. Meaningful Use Info Meaningful Use Meaningful Use Diagnoses (Choose all that apply): None applicable Ischemic Stroke Statin Dosing Therapy Reference: STATIN DOSE THERAPY REFERENCE: * Patients > 75 years receive moderate or high dose statin therapy. * Patients 75 years or YOUNGER should receive HIGH intensity statin dose unless contraindicated. You will be required to document reason for non-treatment if statin daily dose does not meet guidelines. HIGH DOSE STATIN THERAPY DAILY Atorvastatin > than or = to 40 mg Rosuvastatin > than or = to 20 mg Amlodipine + Atorvastatin > than or = to 2.5/40 mg Ezetimibe + Simvastatin 10/80 mg Simvastatin 80mg Discharge Plan Admission Admit Date/Time: 11/15/24 13:43 Primary Reason for Your Visit: End-stage COPD, pneumonia bilateral, bronchiectasis Attending Provider: Rohan Henao Primary Care Provider: Fernandez Baig Consulting Providers: Jay Cueva; Jermaine Thapa; Ferdinand Shearer; Harsh Manzo; Khai Kaye; Roberto Stark; Tre Cyr; Bette Saez; Carlos Sanchez; Rj Garcia; Jb Cooley; Ginny Brock; Claudine Quezada; Ambreen,Desiree; Radha,Brian; Tano Romero; Yonny Cabrales; Slade Saini; Jakob Gallegos; Laura Sam; Doug Lai; Yusuf Stearns; Alexi Gurrola; Klaus Bardales; Azucena Bethea NP; Mathew Low; Khai Heart; Constanza Shearer; Bhavana Tellez; Jenny Tijerina; Naya Livingston PARTS IDENTIFICATION TECHNICIAN; Adrianne Mcqueen Discharge Orders/Prescriptions Prescriptions: New benzonatate 100 mg Capsule 200 mg PO TID PRN (Reason: cough) Qty: 30 0RF dextromethorphan-guaifenesin 60-1,200 mg tablet extended release 12 hr 1 tab PO BID 7 Days Qty: 14 0RF sennosides-docusate sodium [Stimulant Laxative Plus] 8.6-50 mg Tablet 2 tab PO BID Qty: 0 0RF Daily Fiber (psyllium-aspart) 3 gram Powder In Packet 1 packet PO DAILY PRN PRN (Reason: Constipation) Qty: 0 0RF Rx Instructions: Xtsh-ubm-iekkyde prednisone 10 mg tablet 10 mg PO DAILY Qty: 30 0RF Rx Instructions: 40 mg for 3 days 30 mg for 3 days, 20 mg for 3 days,and 10 mg for 3 days levofloxacin 500 mg tablet 500 mg PO DAILY 5 Days Qty: 5 0RF Continued nitroglycerin 0.4 mg tablet, sublingual 0.4 mg SUBLINGUAL Q5-15M PRN (Reason: chest pain) Qty: 25 3RF Rx Instructions: until response; do not exceed 3 doses per event (DME) Handicap Placcard See Rx Instructions .ROUTE .MEDSUPPLY Qty: 1 0RF Rx Instructions: Time Duration: 99 months ipratropium-albuterol 0.5 mg-3 mg(2.5 mg base)/3 mL solution for nebulization 3 ml inhalation DAILY losartan 25 mg tablet 25 mg PO BID Qty: 180 4RF isosorbide mononitrate 30 mg tablet extended release 24 hr 30 mg PO DAILY Qty: 90 4RF Rx Instructions: Takes at 1200 albuterol sulfate 90 mcg/actuation HFA aerosol inhaler 2 puff INHALATION Q4H PRN (Reason: shortness of breath or wheezing) Qty: 8.5 3RF Rx Instructions: administer with spacer albuterol sulfate 2.5 mg /3 mL (0.083 %) solution for nebulization 2.5 mg INHALATION Q4H Qty: 180 6RF Brovana 15 mcg/2 mL solution for nebulization 15 mcg INHALATION BID Qty: 120 11RF budesonide 0.5 mg/2 mL suspension for nebulization 0.5 mg INHALATION BID Qty: 120 11RF guaifenesin 1,200 mg tablet extended release 12hr 1,200 mg PO Q12H Qty: 60 6RF aspirin 81 MG tablet 81 mg PO DAILY@2000 metoprolol succinate 25 mg tablet extended release 24 hr 12.5 mg PO DAILY Qty: 45 4RF rosuvastatin 20 mg tablet 20 mg PO DAILY Qty: 90 4RF Held prednisone 10 mg tablet 10 mg PO DAILY Hold Instructions: Hold it whileshe completes prednisone taper dose Referrals / Follow Up: Fernandez Baig DO [Primary Care Provider] - Within 2 Weeks (Discharged with homehospice care) Disposition Disposition (needs filled in before D/C Order can be placed): Hospice in Home Charges/Coding Visit Charges Inpatient E&M: 08916 Disch Hosp >30min 11/19/24 1231 <Electronically signed by Rohan Henao MD> Cosigner Signature (if applicable): CC: Dr. Rohan Henao MD; Dr. Fernandez Baig DO~ Signed [facility] Work Phone: 1(825) 698-458305-12-2025 [facility] Medical Records Department [address] [place] [address] Discharge Summary 11/19/24 1019 MR#: [id number] Acct: [id number] Name: NANETTE MONROY Rep #: [id number] : 1945 79 From: Rohan Henao MD PCP: Dr. Fernandez Baig DO Status:ADM IN Location: [place] [address] Providers Date of Admission: 11/15/24 Date of Discharge: 11/19/24 Primary Care Physician: Dr. Fernandez Baig DO Consultations 11/15/24 14:59 Consult: Project Asst / Pulmonary Medicine Routine Consulting Provider: [facility] Reason for Consult: RESP FAILURE, NEED AIRVO, COPD stage4 EMERGENT Consult: No Notified: Yes Date Notified: 11/15/24 Time Notified: 14:35 Method of Notification: Text 11/16/24 14:11 Consult: Hospice / Palliative Care Routine Consulting Provider: [facility] Reason for Consult: end stage copd, resp failure, Bronchiectasis EMERGENT Consult: No Notified: Yes Date Notified: 11/16/24 Time Notified: 14:12 Method of Notification: Answering Service Reason For Visit: COPD EXA Diagnosis Discharge Diagnosis (1) Acute on chronic hypoxic respiratory failure: Status: Chronic Code(s): J96.21 - Acute and chronic respiratory failure with hypoxia (2) COPD exacerbation: Status: Chronic Code(s): J44.1 - Chronic obstructive pulmonary disease with (acute) exacerbation Plan This 79-year-old gentleman with end-stage COPD is being admitted for COPD exacerbation 1. Acute on chronic hypoxic respiratory failure due to COPD exacerbation: Patient is being admitted in the PCU. Chest CTA shows no signs of pulmonary embolism but groundglass opacities scattered throughout the lower lobes. Bronchiectatic changes along with bronchial thickening primarily in the lower lobes. With bronchiectasis changes lower lobes, started on IV Zosyn and Zithromax. Project Asst consult. Pneumonia workup ordered. ABG 7.4 on 5 L of oxygen. Start on Airvo as patient is respiratory muscle fatigued and mild going ventilatory failure. Patient is being managed on scheduled bronchodilator, IV Solu-Medrol, Mucinex???DM, Tessalon Perles , incentive spirometry and Pep. 11/16: Pulmonary consult reviewed and appreciated. Patient has end-stage COPD. BNP and procalcitonin unremarkable. Recommended echo. Palliative care was recommended. 11/17: Hospice meeting at 1:30 PM. Further course as per hospice meeting decision 11/18: Patient and family centered home hospice care. Hospice arrangement is being set up at home. Anticipate discharge tomorrow 11/19: Hospice arrangement including oxygen set up at home. Patient is discharged on 5 more days of Levaquin to cover Pseudomonas and strep pneumoniae as per antibiogram, tapering dose of prednisone, Mucinex DM. Compressor Assembler called to inform. Follow-up with PCP and hospice care at home. Patient needs 6 L of oxygen at rest. 2. Bilateral pneumonia due to strep pneumoniae and Pseudomonas aeruginosa with history of bronchiectasis and end-stage COPD: Chest x-ray and CT images reviewed. 11/16 continue IV Zosyn. Respiratory panel negative. COVID-19 PCR negative. Gram stain shows 4+ WBC, 4+ GNR, 4+ GPR, 1+ GPC. Urinary antigens negative. Azithromycin discontinued. Doxycycline started. 11/17: Continue antibiotic. Full sputum culture is still pending 11/18: Sputum culture shows Pseudomonas aeruginosa and strep pneumoniae. IV antibiotic broad- spectrum Zosyn changed to IV cefepime. 3. CAD status post CABG: Patient home medications continued. On baby aspirin, Imdur, losartan, metoprolol and rosuvastatin. 11/17: Echo shows EF 55%, mild concentric LVH, stage I diastolic dysfunction and mild AI. Tiny PFO. Trivial to mild MR and TR. 4. Hypertension and dyslipidemia: As mentioned above. Blood pressure in normal range. 5. Chronic tobacco use, patient quit about a year ago 6. DVT prophylaxis high risk: Enoxaparin 40 mL subcu daily. Discharge medication reconciliation done. Discharge follow-up instructions completed. Discharge process discussed with the patient and all questions were answered to patient's satisfaction. Follow with PCP in 1 to 2 weeks Total time spent, exact 35 minutes on discharge meds reconciliation, examination, coordination of care with nurses and ancillary staff, review of imaging and blood test and discussion with the patient on follow-up instructions. Living will/advanced directive/end of life care: Patient does not living will or advanced directive. His girlfriend who lives for many years is next to kin and present to ED. After discussion of benefits/risks procedures involved with full code, DNR CC arrest and DNR CC, the patient opted for DNR CC arrest with no intubation Patient doesn't want artificial life support including intubation, tube feed, ventilator and/chest compression, and DC shock if needed. Patient is unclear about central line/PICC line or (more content not included)...[facility]05-11-2025 Progress note Author Rohan Henao [facility] Note Date/Time November 18, 2024 11:50 am [facility] Medical Records Department [address] [place] [address] Progress Note - Hospitalist 11/18/24 1140 MR#: [id number] Acct: [id number] Name: NANETTE MONROY Rep #:[id number] : 1945 79 From: Rohan Cortez PCP: Dr. Fernandez Baig, DO Status:ADM IN Location: [place] [address] Reason for Visit Reason for Visit: Diagnoses Chronic obstructive pulmonary disease with (acute) exacerbation (11/15/24) Acute and chronic respiratory failure with hypoxia (11/15/24) Objective Data Objective Data Vital Signs: Vital Signs Temp Pulse Resp BP Pulse Ox O2 Del Method O2 Flow Rate 97.1 F L 76 20 H 136/70 H 96 Nasal Cannula 6 11/18/24 08:32 11/18/24 11:00 11/18/24 10:46 11/18/24 08:32 11/18/24 08:32 11/18/24 08:32 11/18/24 08:32 Oxygen Flow Rate (L/min) 6 Oxygen Delivery Method Nasal Cannula Weight: 180 lb 0.013 oz Body Mass Index (BMI) 26.6 Intake & Output: Intake and Output for Last 24 Hours 11/16/24 11/17/24 11/18/24 23:59 23:59 23:59 Intake Total 1814 / 1814 960.75 / 960.75 100 / 100 Output Total 250 / 600 1550 / 1550 Balance 1564 / 1214 -589.25 / -589.25 100 / 100 Lab / Micro Data 11/16/24 04:27 11/18/24 04:54 Labs: Laboratory Results - last 24 hr 11/18/24 04:54: Sodium 139, Potassium 3.9, Chloride 108, Carbon Dioxide 22.2, Anion Gap 9, BUN 24 H, Creatinine 0.96, Estim Creat Clear Calc 61.37, Est GFR (MDRD) Non-Af 80, BUN/Creatinine Ratio 25.3 H, Glucose 116 H, Lactic Acid < 1.0,Calcium 8.5 Micro: Microbiology 11/15/24 15:50 Sputum, Expectorated/Coughed Gram Stain - Final 11/15/24 15:50 Sputum, Expectorated/Coughed Respiratory Culture - Preliminary Streptococcus pneumoniae Pseudomonas aeruginosa 11/15/24 16:40 Mucosa - Nasopharyngeal Respiratory Panel (PCR) - Final 11/15/24 16:40 Mucosa - Nasopharyngeal Coronavirus COVID-19 PCR - Final 11/15/24 15:30 Urine, Clean Catch Legionella Antigen - Final 11/15/24 15:30 Urine, Clean Catch Streptococcus pneumoniae Antigen (M - Final Physical Exam Narrative Seen and examined. Hospice meeting was done yesterday. Patient and family accepted for home hospice care. Shortness of breath is slightly better. Sputum culture growing strep pneumoniaeand Pseudomonas aeruginosa Physical exam General: Alert, Oriented x3, Cooperative HEENT: Moderate hearing loss on hearing aids. Atraumatic, PERRLA, EOMI, Normocephalic. Oral: Oral mucosa dry. No Gingival or Mucosal Lesions/ Ulcerations Neck: Supple, No JVD, Negative Carotid Bruits Chest wall/Lungs: Air entry severely diminished in all lung montes. Dyspnea onmild exertion. Bilateral expiratory rhonchi. Cardiovascular: Regular rate and rhythm, Normal S1,S2, systolic murmur. CABG Abdomen: Bowel Sounds Present, Soft, Non Tender, Non-Distended : No dysuria. No renal angle tenderness. No suprapubic tenderness. Extremities: No edema, Capillary Refill Less than 3 Seconds Skin: No rashes, No breakdown Musculoskeletal: No Tenderness to Palpation of Joints or Extremities. ROM intact. Neurological: Cranial nerves II-XII grossly intact, DTR 2+/4. No acute focal neurological deficit. Psych/Mental Status: Normal Affect, Appropriate. 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 Acute on chronic hypoxic respiratory failure due to COPD exacerbation: Patient is being admitted in the PCU. Chest CTA shows no signs of pulmonary embolism but groundglass opacities scattered throughout the lower lobes. Bronchiectatic changes along with bronchial thickening primarily in the lower lobes. With bronchiectasis changes lower lobes, started on IV Zosyn and Zithromax. Project Asst consult. Pneumonia workup ordered. ABG 7.4 3/86 on 5 L of oxygen. Start on Airvo as patient is respiratory muscle fatigued and mild going ventilatory failure. Patient is being managed on scheduled bronchodilator, IV Solu-Medrol, Mucinex?DM, Tessalon Perles , incentive spirometry and Pep. 11/16: Pulmonary consult reviewed and appreciated. Patient has end-stage COPD. BNP and procalcitonin unremarkable. Recommended echo. Palliative care was recommended. 11/17: Hospice meeting at 1:30 PM. Further course as per hospice meeting decision 11/18: Patient and family centered home hospice care. Hospice arrangement is being set up at home. Anticipate discharge tomorrow 2. Bilateral pneumonia due to strep pneumoniae and Pseudomonas aeruginosa with history of bronchiectasis and end-stage COPD: Chest x-ray and CT images reviewed. 5/9 continue IV Zosyn. Respiratory panel negative. COVID-19 PCR negative. Gram stain shows 4+ WBC, 4+ GNR, 4+ GPR, 1+ GPC. Urinary antigens negative. Azithromycin discontinued. Doxycycline started. 11/17: Continue antibiotic. Full sputum culture is still pending 11/18: Sputum culture shows Pseudomonas aeruginosa and strep pneumoniae. IV antibiotic broad-spectrum Zosyn changed to IV cefepime. 3. CAD status post CABG: Patient home medications continued. On baby aspirin, Imdur, losartan, metoprolol and rosuvastatin. 11/17: Echo shows EF 55%, mild concentric LVH, stage I diastolic dysfunction and mild AI. Tiny PFO. Trivial to mild MR and TR. 4. Hypertension and dyslipidemia: As mentioned above. Blood pressure in normalrange. 5. Chronic tobacco use, patient quit about a year ago 6. DVT prophylaxis high risk: Enoxaparin 40 mL subcu daily. Living will/advanced directive/end of life care: Patient does not living will oradvanced directive. His girlfriend who lives for many years is next to kin and present to ED. After discussion of benefits/risks procedures involved with full code, DNR CC arrest and DNR CC, the patient opted for DNR CC arrest with nointubation Patient doesn't want artificial life support including intubation, tube feed, ventilator and/chest compression, and DC shock if needed. Patient is unclear about central line/PICC line or vasopressor if needed. Total time spent in vvyq-ih-qhwe encounter in discussion of advanced directive 17 minutes. Microbiology Past 72 Hours 11/15/24 15:50 Sputum, Expectorated/Coughed Gram Stain - Final 11/15/24 15:50 Sputum, Expectorated/Coughed Respiratory Culture - Preliminary Streptococcus pneumoniae Pseudomonas aeruginosa 11/15/24 16:40 Mucosa - Nasopharyngeal Respiratory Panel (PCR) - Final 11/15/24 16:40 Mucosa - Nasopharyngeal Coronavirus COVID-19 PCR - Final 11/15/24 15:30 Urine, Clean Catch Legionella Antigen - Final 11/15/24 15:30 Urine, Clean Catch Streptococcus pneumoniae Antigen (M - Final Laboratory Results 11/18/24 04:54: Sodium 139, Potassium 3.9, Chloride 108, Carbon Dioxide 22.2, Anion Gap 9, BUN 24 H, Creatinine 0.96, Estim Creat Clear Calc 61.37, Est GFR (MDRD) Non-Af 80, BUN/Creatinine Ratio 25.3 H, Glucose 116 H, Lactic Acid < 1.0,Calcium 8.5 Echocardiogram 11/16/24 09:29 Interpretation Summary The study was technically difficult. Mild concentric left ventricular hypertrophy. The LV systolic function is normal. EF is 55 %. Stage 1 diastolic dysfunction. Bubble study appears positive for tiny PFO. Mild (1+) aortic valve insufficiency. Trivial to mild mitral and tricuspid valve insufficiency. Clinical Impression(s) from Imaging Studies Chest X-Ray 11/15/24 10:27 IMPRESSION: No active cardiopulmonary disease. Parenchymal scarring and/or subsegmental atelectasis, left lower lobe. Reading Location: [facility] Chest CTA 11/15/24 11:35 IMPRESSION: No signs of pulmonary embolism. Centrilobular emphysematous changes. Ground-glass opacities are scattered throughout the lower lobes. Can not exclude mild inflammation. Bronchiectatic changes along with bronchial thickening primarily in the lower lobes. Reading Location: [facility] Charges/Coding Visit Charges Inpatient E&M: 26216 Subs Hosp L2 11/18/24 1150 <Electronically signed by Rohan Henao MD> Cosigner Signature (if applicable): CC: ~ Signed [facility] Work Phone: 1(111) 768-845605-11-[address] [facility] Medical Records Department [address] [place] [id number] Progress Note - Hospitalist 11/18/24 1140 MR#: [id number] Acct: [id number] Name: NANETTE MONROY Rep #:[id number] : 1945 79 From: Rohan Cortez PCP: Dr. Fernandez Baig, Status:ADM IN Location: [facility] [id number] 1 Reason for Visit Reason for Visit: Diagnoses Chronic obstructive pulmonary disease with (acute) exacerbation (11/15/24) Acute and chronic respiratory failure with hypoxia (11/15/24) Objective Data Objective Data Vital Signs: Vital Signs Temp Pulse Resp BP Pulse Ox O2 Del Method O2 Flow Rate 97.1 F L 76 20 H 136/70 H 96 Nasal Cannula 6 11/18/24 08:32 11/18/24 11:00 11/18/24 10:46 11/18/24 08:32 11/18/24 08:32 11/18/24 08:32 11/18/24 08:32 Oxygen Flow Rate (L/min) 6 Oxygen Delivery Method Nasal Cannula Weight: 180 lb 0.013 oz Body Mass Index (BMI) 26.6 Intake & Output: Intake and Output for Last 24 Hours 11/16/24 11/17/24 11/18/24 23:59 23:59 23:59 Intake Total 1814 / 1814 960.75 / 960.75 100 / 100 Output Total 250 / 600 1550 / 1550 Balance 1564 / 1214 -589.25 / -589.25 100 / 100 Lab / Micro Data 11/16/24 04:27 11/18/24 04:54 Labs: Laboratory Results - last 24 hr 11/18/24 04:54: Sodium 139, Potassium 3.9, Chloride 108, Carbon Dioxide 22.2, Anion Gap 9, BUN 24 H, Creatinine 0.96, Estim Creat Clear Calc 61.37, Est GFR (MDRD) Non-Af 80, BUN/Creatinine Ratio 25.3H, Glucose 116 H, Lactic Acid < 1.0,Calcium 8.5 Micro: Microbiology 11/15/24 15:50 Sputum, Expectorated/Coughed Gram Stain - Final 11/15/24 15:50 Sputum, Expectorated/Coughed Respiratory Culture - Preliminary Streptococcus pneumoniae Pseudomonas aeruginosa 11/15/24 16:40 Mucosa - Nasopharyngeal Respiratory Panel (PCR) - Final 11/15/24 16:40 Mucosa - Nasopharyngeal Coronavirus COVID-19 PCR - Final 11/15/24 15:30 Urine, Clean Catch Legionella Antigen - Final 11/15/24 15:30 Urine, Clean Catch Streptococcus pneumoniae Antigen (M - Final Physical Exam Narrative Seen and examined. Hospice meeting was done yesterday. Patient and family accepted for home hospice care. Shortness of breath is slightly better. Sputum culture growing strep pneumoniaeand Pseudomonas aeruginosa Physical exam General: Alert, Oriented x3, Cooperative HEENT: Moderate hearing loss on hearing aids. Atraumatic, PERRLA, EOMI, Normocephalic. Oral: Oral mucosa dry. No Gingival or Mucosal Lesions/ Ulcerations Neck: Supple, No JVD, Negative Carotid Bruits Chest wall/Lungs: Air entry severely diminished in all lung montes. Dyspnea onmild exertion. Bilateral expiratory rhonchi. Cardiovascular: Regular rate and rhythm, Normal S1,S2, systolic murmur. CABG Abdomen: Bowel Sounds Present, Soft, Non Tender, Non-Distended : No dysuria. No renal angle tenderness. No suprapubic tenderness. Extremities: No edema, Capillary Refill Less than 3 Seconds Skin: No rashes, No breakdown Musculoskeletal: No Tenderness to Palpation of Joints or Extremities. ROM intact. Neurological: Cranial nerves II-XII grossly intact, DTR 2+/4. No acute focal neurological deficit. Psych/Mental Status: Normal Affect, Appropriate. 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 Acute on chronic hypoxic respiratory failure due to COPD exacerbation: Patient is being admittedin the PCU. Chest CTA shows no signs of pulmonary embolism but groundglass opacities scattered throughout the lower lobes. Bronchiectatic changes along with bronchial thickening primarily in the lower lobes. With bronchiectasis changes lower lobes, started on IV Zosyn and Zithromax. Project Asst consult. Pneumonia workup ordered. ABG 7.4 on 5 L of oxygen. Start on Airvo as patient is respiratory muscle fatigued and mild going ventilatory failure. Patient is being managed on scheduled bronchodilator, IV Solu-Medrol, Mucinex?DM, Tessalon Perles , incentive spirometry and Pep. 11/16: Pulmonary consult reviewed and appreciated. Patient has end-stage COPD. BNP and procalcitonin unremarkable. Recommended echo. Palliative care was recommended. 11/17: Hospice meeting at 1:30 PM. Further course as per hospice meeting decision 11/18: Patient and family centered home hospice care. Hospice arrangement is being set up at home. Anticipate discharge tomorrow 2. Bilateral pneumonia due to strep pneumoniae and Pseudomonas aeruginosa with history of bronchiectasis and end-stage COPD: Chest x-ray and CT images reviewed. 11/16 continue IV Zosyn. Respiratory panel negative. COVID-19 PCR negative. Gram stain shows 4+ WBC, 4+ GNR, 4+ GPR, 1+ GPC. Urinary antigens negative. Azithromycin discontinued. Doxycycline started. 11/17: Continue antibiotic. Full sputum culture is still pending 11/18: Sputum culture shows Pseudomonas aeruginosa and strep pneumoniae. IV antibiotic broad-spectrum Zosyn changed to IV cefepime. 3. CAD status post CABG: Patient home medications continued. On baby aspirin, Imdur, losartan, metoprolol and rosuvastatin. 11/17: Echo shows EF 55%, mild concentric LVH, stage I diastolic dysfunction and mild AI. Tiny PFO. Trivial to mild MR and TR. 4. Hypertension and dyslipidemia: As mentioned above. Blood pressure in normalrange. 5. Chronic tobacco use, patient quit about a year ago 6. DVT prophylaxis high risk: Enoxaparin 40 mL subcu daily. Living will/advanced directive/end of life care: Patient does not living will oradvanced directive.His girlfriend who lives for many years is next to kin and present to ED. After discussion of benefits/risks procedures involved with full code, DNR CC arrest and DNR CC, the patient opted for DNR CCarrest with nointubation Patient doesn't want artificial life support including intubation, tube feed, ventilator and/chest compression, and DC shock if needed. Patient is unclear about central line/PICC line or vasopressor if needed. Total time spent in exnn-aj-aplh encounter in discussion of advanced directive 17 minutes. Microbiology Past 72 Hours 11/15/24 15:50 Sputum, Expectorated/Coughed Gram Stain - Final 11/15/24 15:50 Sputum, Expectorated/Coughed Respiratory Culture - Preliminary Streptococcus pneumoniae Pseudomonas aeruginosa 11/15/24 16:40 Mucosa - Nasopharyngeal Respiratory Panel (PCR) - Final 11/15/24 16:40 Mucosa - Nasopharyngeal Coronavirus COVID-19 PCR - Final 11/15/24 15:30 Urine, Clean Catch Legionella Antigen - Final 11/15/24 15:30 Urine, Clean Catch Streptococcus pneumoniae Antigen (M - Final Laboratory Results 11/18/24 04:54: Sodium 139, Potassium 3.9, Chloride 108, Carbon Dioxide 22.2, Anion Gap 9, BUN 24 H, Creatinine 0.96, Estim Creat Clear Calc 61.37, Est GFR (MDRD) Non-Af 80, BUN/Creatinine Ratio 25.3H, Glucose 116 H, Lactic Acid < 1.0,Calcium 8.5 Echocardiogram 11/16/24 09:29 Interpretation Summary The study was technically difficult. Mild concentric left ventricular hypertrophy. The LV systolic function is normal. EF is 55 %. Stage 1 diastolic dysfunction. Bubble study appears positive for tiny PFO. Mild (1+) aortic valve insufficiency. Trivial to mild mitral and tricuspid valve insufficiency. Clinical Impression(s) from Imaging Studies Chest X-Ray 11/15/24 10:27 IMPRESSION: No active cardiopulmonary disease. Parenchymal scarring and/or subsegmental atelectasis, left lower lobe. Reading Location: [facility] Chest CTA 11/15/24 11:35 IMPRESSION: No signs of pulmonary embolism. Centrilobular emphysematous changes. Ground-glass opacities are scattered throughout the lower lobes. Can not exclude mild inflammation. Bronchiectatic changes along with bronchial thickening primarily in the lower lobes. Reading Location: [facility] Charges/Coding Visit Charges Inpatient E&M: 54327 Subs Hosp L2 11/18/24 1150 Cosigner Signature (if applicable): CC: ~ Signed [facility]05-11-2025 Progress note Author Carlos Sanchez [facility] Note Date/Time November 18, 2024 9:49a m [facility] Medical Records Department [address] [place] [address] Progress Note - Project Asst 11/18/24 0944 MR#: [id number] Acct: [id number] Name: NANETTE MONROY Rep #:[id number] : 1945 79 From: Carlos Sanchez MD PCP: Dr. Fernandez Baig, DO Status:ADM IN Location: [facility] [id number]- 1 Objective Data Objective Data Vital Signs: Vital Signs Last response 3 Temperature 36.2 C L 11/18/24 08:32 Temperature Source Oral 11/18/24 08:32 Pulse Rate 72 11/18/24 08:32 Pulse Strength Weak (1+) 11/18/24 08:14 Respiratory Rate 19 H 11/18/24 08:32 Respiratory Effort Labored, Accessory Muscle Use, Pursed Lip 11/18/24 08:28 Respiratory Depth Normal 11/18/24 08:28 Respiratory Pattern Normal 11/18/24 08:28 Blood Pressure 136/70 H 11/18/24 08:32 Blood Pressure Mean 92 11/18/24 08:32 Blood Pressure Source Monitor 11/18/24 08:32 Blood Pressure Position Sitting 11/18/24 08:32 Blood Pressure Location Left Arm 11/18/24 08:32 Pulse Ox 96 11/18/24 08:32 Oxygen Delivery Method Nasal Cannula 11/18/24 08:32 Oxygen Flow Rate (L/min) 6 11/18/24 08:32 I&O: I&O Last 24 Hours 3 11/17/24 11/17/24 11/18/24 11:59 23:59 11:59 Intake Total 285.75 / 960.75 675 / 960.75 100 / 100 Output Total 750 / 1550 800 / 1550 Balance -464.25 / -589.25 -125 / -589.25 100 / 100 I&O: Total Stay 3 11/15/24 10:00 thru 11/18/24 09:14 Intake Total 3325.00 Output Total 1800 Balance 1525.00 Current Meds Ordered / Administered: Current meds ordered / Administered 3 Generic Name Dose Route Start Last Admin Trade Name Freq PRN Reason Stop Dose Admin Acetaminophen 650 mg 11/15/24 14:59 Acetaminophen 325 Mg Tablet PO Q6H PRN PRN Pain 1-10 Or Fever>100.7 Albuterol/Ipratropium 3 ml 11/15/24 14:30 11/18/24 07:43 Ipratropium/Albuterol Sulfate 3 Ml Ampul.Neb INHALATION 3 ml Q4HWA.RT TALIB Administration Aspirin 81 mg 11/15/24 20:00 11/17/24 20:11 Aspirin E.C. 81 Mg Tablet PO 81 mg DAILY@2000 TALIB Administration Atorvastatin Calcium 40 mg 11/16/24 10:00 11/18/24 08:23 Atorvastatin Calcium 40 Mg Tablet PO 40 mg DAILY TALIB Administration Benzonatate 200 mg 11/15/24 22:00 11/18/24 05:07 Benzonatate 100 Mg Capsule PO 200 mg TID TALIB Administration Doxycycline Monohydrate 100 mg 11/16/24 22:00 11/18/24 08:24 Doxycycline 100 Mg Capsule PO 100 mg BID TALIB Administration Enoxaparin Sodium 40 mg 11/15/24 14:59 11/18/24 08:22 Enoxaparin 40 Mg/0.4 Ml Syringe SC 40 mg Q24 TALIB Administration Guaifenesin 2 tablet 11/15/24 14:59 11/18/24 08:24 Guaifenesin/D-Methorphan Tab.Sr.12h PO 2 tablet BID TALIB Administration Piperacillin Sod/Tazobactam 50 mls @ 12.5 mls/hr 11/15/24 14:55 11/18/24 09:14 Sod 3.375 gm/ Sodium Chloride IV Infused Q8 TALIB Infusion Sodium Chloride 250 mls @ 15 mls/hr 11/15/24 15:20 11/17/24 06:51 IV Infused .[id number] PRN Infusion Saline Flush Sodium Chloride 250 mls @ 15 mls/hr 11/15/24 15:20 IV .[id number] PRN Additional IVPB Infusion Isosorbide Mononitrate 30 mg 11/16/24 12:00 11/17/24 13:01 Isosorbide Mononitrate 30 Mg Tablet PO 30 mg DAILY@1200 [facility] Administration Protocol Losartan Potassium 25 mg 11/15/24 22:00 11/18/24 08:24 Losartan Potassium 25 Mg Tablet PO 25 mg BID TALIB Administration Protocol Metoprolol Succinate 12.5 mg 11/16/24 10:00 11/18/24 08:22 Metoprolol(Xl)Succ 25 Mg Tablet PO 12.5 mg DAILY TALIB Administration Protocol Nitroglycerin 0.4 mg 11/15/24 15:11 Nitroglycerin (Inpatient Use) 0.4 Mg Tab.Subl SL Q5M PRN CARDIAC/CHEST PAIN Prednisone 40 mg 11/17/24 12:00 11/18/24 08:23 Prednisone 20 Mg Tablet PO 40 mg BREAKFAST TALIB Administration Psyllium Hydrophilic Mucilloid 1 packet 11/15/24 14:59 Psyllium 1 Packet PO DAILY PRN PRN Constipation Senna/Docusate Sodium 2 tablet 11/15/24 22:00 11/18/24 08:23 Senna/Docusate Sodium 1 Tablet PO 2 tablet BID TALIB Administration Sodium Chloride 10 - 40 ml 11/15/24 15:20 11/17/24 21:21 0.9% Saline Lock 10 Ml Syringe IV 10 ml UD PRN Administration SALINE FLUSH Sodium Chloride 2 spray 11/17/24 23:21 Sodium Chloride 0.65% 1 Paradox Paradox.Btl NASAL TID PRN PRN NASAL DRYNESS Lab / Micro Data 11/16/24 04:27 11/18/24 04:54 Labs: Laboratory Results - last 24 hr 11/17/24 10:58: Sodium 138, Potassium 4.3, Chloride 104, Carbon Dioxide 22.7, Anion Gap 11, BUN 23 H, Creatinine 0.97, Estim Creat Clear Calc 60.74, Est GFR (MDRD) Non-Af 79, BUN/Creatinine Ratio 23.2 H, Glucose 112 H, Lactic Acid 2.0, Calcium 9.0 11/18/24 04:54: Sodium 139, Potassium 3.9, Chloride 108, Carbon Dioxide 22.2, Anion Gap 9, BUN 24 H, Creatinine 0.96, Estim Creat Clear Calc 61.37, Est GFR (MDRD) Non-Af 80, BUN/Creatinine Ratio 25.3 H, Glucose 116 H, Lactic Acid < 1.0,Calcium 8.5 Micro: Microbiology 11/15/24 15:50 Sputum, Expectorated/Coughed Gram Stain - Final 11/15/24 15:50 Sputum, Expectorated/Coughed Respiratory Culture - Preliminary Streptococcus pneumoniae Pseudomonas aeruginosa Assessment and Plan . Assessment and plan: 1. Resp Failure:acute on chronic: Hypoxemic + Chronic: hypercapnic. Etiology of exac not clear. CTA showed subtle GGO. VIRAL wash:-. He at baseline retains CO2. His baseline HCO3 is in the high 20s. 11/16 it was 18.It is better the last 24 hours: 22. Back to baseline of 6L. 2. COPD exac: ? 2/2 viral syndrome. ? related to acid base issue. Continue nebs.Continue oral steroids: 2 week taper. Excellent a/e on exam. 3. Pneumonia: ?. Subtle GGO. Sputum + for pseudomonas and strep pneumoniae. Onceagain no dense consolidation. Can complete 7 days of antibxs. 4. Metabolic Acidosis: Repeat BMP: HCO3 better-->22, Lactic acid 2.0(11/17) 5. FEN: oral diet 6. PX: chemical Can go home from my perspective. Probable d/c in am Carlos Sanchez MD The entirety of this encounter was done via Telemedicine Physical Exam Narrative awake, Sitting in chair, NAD pupils = o/p:clear CV: RRR Chest: excellent a/e, diminished, no wheezing Abd: soft,NT ExT: no c/e/c Skin: no rashes Subjective Subjective doing well 11/18/24 0949 <Electronically signed by Carlos Sanchez MD> Cosigner Signature (if applicable): CC: ~ Signed [facility] Work Phone: [phone] [facility] Medical Records Department [address] [place] [address] Progress Note - Project Asst 11/18/24 0944 MR#: [id number] Acct: [id number] Name: NANETTE MONROY Rep #:[id number] : 1945 79 From: Carlos Sanchez MD PCP: Dr. Fernandez Baig, DO Status:ADM IN Location: [place] [address] Objective Data Objective Data Vital Signs: Vital Signs Last response 3 Temperature 36.2 C L 11/18/24 08:32 Temperature Source Oral 11/18/24 08:32 Pulse Rate 72 11/18/24 08:32 Pulse Strength Weak (1+) 11/18/24 08:14 Respiratory Rate 19 H 11/18/24 08:32 Respiratory Effort Labored, Accessory Muscle Use, Pursed Lip 11/18/24 08:28 Respiratory Depth Normal 11/18/24 08:28 Respiratory Pattern Normal 11/18/24 08:28 Blood Pressure 136/70 H 11/18/24 08:32 Blood Pressure Mean 92 11/18/24 08:32 Blood Pressure Source Monitor 11/18/24 08:32 Blood Pressure Position Sitting 11/18/24 08:32 Blood Pressure Location Left Arm 11/18/24 08:32 Pulse Ox 96 11/18/24 08:32 Oxygen Delivery Method Nasal Cannula 11/18/24 08:32 Oxygen Flow Rate (L/min) 6 11/18/24 08:32 I&O: I&O Last 24 Hours 3 11/17/24 11/17/24 11/18/24 11:59 23:59 11:59 Intake Total 285.75 / 960.75 675 / 960.75 100 / 100 Output Total 750 / 1550 800 / 1550 Balance -464.25 / -589.25 -125 / -589.25 100 / 100 I&O: Total Stay 3 11/15/24 10:00 thru 11/18/24 09:14 Intake Total 3325.00 Output Total 1800 Balance 1525.00 Current Meds Ordered / Administered: Current meds ordered / Administered 3 Generic Name Dose Route Start Last Admin Trade Name Freq PRN Reason Stop Dose Admin Acetaminophen 650 mg 11/15/24 14:59 Acetaminophen 325 Mg Tablet PO Q6H PRN PRN Pain 1-10 Or Fever>100.7 Albuterol/Ipratropium 3 ml 11/15/24 14:30 11/18/24 07:43 Ipratropium/Albuterol Sulfate 3 Ml Ampul.Neb INHALATION 3 ml Q4HWA.RT TALIB Administration Aspirin 81 mg 11/15/24 20:00 11/17/24 20:11 Aspirin E.C. 81 Mg Tablet PO 81 mg DAILY@2000 TALIB Administration Atorvastatin Calcium 40 mg 11/16/24 10:00 11/18/24 08:23 Atorvastatin Calcium 40 Mg Tablet PO 40 mg DAILY TALIB Administration Benzonatate 200 mg 11/15/24 22:00 11/18/24 05:07 Benzonatate 100 Mg Capsule PO 200 mg TID TALIB Administration Doxycycline Monohydrate 100 mg 11/16/24 22:00 11/18/24 08:24 Doxycycline 100 Mg Capsule PO 100 mg BID TALIB Administration Enoxaparin Sodium 40 mg 11/15/24 14:59 11/18/24 08:22 Enoxaparin 40 Mg/0.4 Ml Syringe SC 40 mg Q24 TALIB Administration Guaifenesin 2 tablet 11/15/24 14:59 11/18/24 08:24 Guaifenesin/D-Methorphan Tab.Sr.12h PO 2 tablet BID TALIB Administration Piperacillin Sod/Tazobactam 50 mls @ 12.5 mls/hr 11/15/24 14:55 11/18/24 09:14 Sod 3.375 gm/ Sodium Chloride IV Infused Q8 TALIB Infusion Sodium Chloride 250 mls @ 15 mls/hr 11/15/24 15:20 11/17/24 06:51 IV Infused .[id number] PRN Infusion Saline Flush Sodium Chloride 250 mls @ 15 mls/hr 11/15/24 15:20 IV .[id number] PRN Additional IVPB Infusion Isosorbide Mononitrate 30 mg 11/16/24 12:00 11/17/24 13:01 Isosorbide Mononitrate 30 Mg Tablet PO 30 mg DAILY@1200 [facility] Administration Protocol Losartan Potassium 25 mg 11/15/24 22:00 11/18/24 08:24 Losartan Potassium 25 Mg Tablet PO 25 mg BID TALIB Administration Protocol Metoprolol Succinate 12.5 mg 11/16/24 10:00 11/18/24 08:22 Metoprolol(Xl)Succ 25 Mg Tablet PO 12.5 mg DAILY TALIB Administration Protocol Nitroglycerin 0.4 mg 11/15/24 15:11 Nitroglycerin (Inpatient Use) 0.4 Mg Tab.Subl SL Q5M PRN CARDIAC/CHEST PAIN Prednisone 40 mg 11/17/24 12:00 11/18/24 08:23 Prednisone 20 Mg Tablet PO 40 mg BREAKFAST TALIB Administration Psyllium Hydrophilic Mucilloid 1 packet 11/15/24 14:59 Psyllium 1 Packet PO DAILY PRN PRN Constipation Senna/Docusate Sodium 2 tablet 11/15/24 22:00 11/18/24 08:23 Senna/Docusate Sodium 1 Tablet PO 2 tablet BID TALIB Administration Sodium Chloride 10 - 40 ml 11/15/24 15:20 11/17/24 21:21 0.9% Saline Lock 10 Ml Syringe IV 10 ml UD PRN Administration SALINE FLUSH Sodium Chloride 2 spray 11/17/24 23:21 Sodium Chloride 0.65% 1 Paradox Paradox.Btl NASAL TID PRN PRN NASAL DRYNESS Lab / Micro Data 11/16/24 04:27 11/18/24 04:54 Labs: Laboratory Results - last 24 hr 11/17/24 10:58: Sodium 138, Potassium 4.3, Chloride 104, Carbon Dioxide 22.7, Anion Gap 11, BUN 23 H, Creatinine 0.97, Estim Creat Clear Calc 60.74, Est GFR (MDRD) Non-Af 79, BUN/Creatinine Ratio 23.2 H, Glucose 112 H, Lactic Acid 2.0, Calcium 9.0 11/18/24 04:54: Sodium 139, Potassium 3.9, Chloride 108, Carbon Dioxide 22.2, Anion Gap 9, BUN 24 H, Creatinine 0.96, Estim Creat Clear Calc 61.37, Est GFR (MDRD) Non-Af 80, BUN/Creatinine Ratio 25.3H, Glucose 116 H, Lactic Acid < 1.0,Calcium 8.5 Micro: Microbiology 11/15/24 15:50 Sputum, Expectorated/Coughed Gram Stain - Final 11/15/24 15:50 Sputum, Expectorated/Coughed Respiratory Culture - Preliminary Streptococcus pneumoniae Pseudomonas aeruginosa Assessment and Plan . Assessment and plan: 1. Resp Failure:acute on chronic: Hypoxemic + Chronic: hypercapnic. Etiology of exac not clear. CTAshowed subtle GGO. VIRAL wash:-. He at baseline retains CO2. His baseline HCO3 is in the high 20s. 11/16 it was 18.It is better the last 24 hours: 22. Back to baseline of 6L. 2. COPD exac: ? 2/2 viral syndrome. ? related to acid base issue. Continue nebs.Continue oral steroids: 2 week taper. Excellent a/e on exam. 3. Pneumonia: ?. Subtle GGO. Sputum + for pseudomonas and strep pneumoniae. Onceagain no dense consolidation. Can complete 7 days of antibxs. 4. Metabolic Acidosis: Repeat BMP: HCO3 better-->22, Lactic acid 2.0(11/17) 5. FEN: oral diet 6. PX: chemical Can go home from my perspective. Probable d/c in am Carlos Sanchez MD The entirety of this encounter was done via Telemedicine Physical Exam Narrative awake, Sitting in chair, NAD pupils = o/p:clear CV: RRR Chest: excellent a/e, diminished, no wheezing Abd: soft,NT ExT: no c/e/c Skin: no rashes Subjective Subjective doing well 11/18/24 0968 Cosigner Signature (if applicable): CC: ~ Signed [facility]05-10-2025 Progress note Author Rohan Henao [facility] Note Date/Time November 17, 2024 12:43 pm [facility] Medical Records Department [address] [place] [address] Progress Note - Hospitalist 11/17/24 0934 MR#: [id number] Acct: [id number] Name: NANETTE MONROY Faith Rep #:[id number] : 1945 79 From: Rohan Cortez PCP: Dr. Fernandez Baig, DO Status:ADM IN Location: [place] [id number] Reason for Visit Reason for Visit: Diagnoses Chronic obstructive pulmonary disease with (acute) exacerbation (11/15/24) Acute and chronic respiratory failure with hypoxia (11/15/24) Objective Data Objective Data Vital Signs: Vital Signs Temp Pulse Resp BP Pulse Ox O2 Del Method O2 Flow Rate 97.8 F 90 19 H 127/61 H 94 Nasal Cannula 6 11/17/24 03:40 11/17/24 08:43 11/17/24 08:43 11/17/24 03:40 11/17/24 07:11 11/17/24 08:43 11/17/24 08:43 Oxygen Flow Rate (L/min) 6 Oxygen Delivery Method Nasal Cannula Weight: 180 lb 0.013 oz Body Mass Index (BMI) 26.6 Intake & Output: Intake and Output for Last 24 Hours 11/15/24 11/16/24 11/17/24 23:59 23:59 23:59 Intake Total 450.25 / 450.25 1814 / 1814 235.75 / 235.75 Output Total 250 / 600 750 / 750 Balance 450.25 / 450.25 1564 / 1214 -514.25 / -514.25 Lab / Micro Data 11/16/24 04:27 11/17/24 10:58 Labs: Laboratory Results - last 24 hr 11/16/24 04:27: NT pro BNP II 503, Procalcitonin 0.06 Micro: Microbiology 11/15/24 15:50 Sputum, Expectorated/Coughed Gram Stain - Final 11/15/24 16:40 Mucosa - Nasopharyngeal Respiratory Panel (PCR) - Final 11/15/24 16:40 Mucosa - Nasopharyngeal Coronavirus COVID-19 PCR - Final 11/15/24 15:30 Urine, Clean Catch Legionella Antigen - Final 11/15/24 15:30 Urine, Clean Catch Streptococcus pneumoniae Antigen (M - Final Radiography Diagnostic Testing: Radiology Impression Echocardiogram 11/16/24 09:29 Interpretation Summary The study was technically difficult. Mild concentric left ventricular hypertrophy. The LV systolic function is normal. EF is 55 %. Stage 1 diastolic dysfunction. Bubble study appears positive for tiny PFO. Mild (1+) aortic valve insufficiency. Trivial to mild mitral and tricuspid valve insufficiency. Ordering Physician: Harsh Manzo Referring Physician: Fernandez Baig Performed By: Gretchen Sauer, MARIO ALBERTO Physical Exam Narrative Seen and examined. Shortness of breath is slightly better but is still conversational dyspnea. I think that is his baseline. Physical exam General: Alert, Oriented x3, Cooperative HEENT: Moderate hearing loss on hearing aids. Atraumatic, PERRLA, EOMI, Normocephalic. Oral: Oral mucosa dry. No Gingival or Mucosal Lesions/ Ulcerations Neck: Supple, No JVD, Negative Carotid Bruits Chest wall/Lungs: Air entry severely diminished in all lung montes. Dyspnea onminimal exertion. Bilateral expiratory rhonchi. Cardiovascular: Regular rate and rhythm, Normal S1,S2, systolic murmur. CABG Abdomen: Bowel Sounds Present, Soft, Non Tender, Non-Distended : No dysuria. No renal angle tenderness. No suprapubic tenderness. Extremities: No edema, Capillary Refill Less than 3 Seconds Skin: No rashes, No breakdown Musculoskeletal: No Tenderness to Palpation of Joints or Extremities. ROM intact. Neurological: Cranial nerves II-XII grossly intact, DTR 2+/4. No acute focal neurological deficit. Psych/Mental Status: Normal Affect, Appropriate. 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 Acute on chronic hypoxic respiratory failure due to COPD exacerbation: Patient is being admitted in the PCU. Chest CTA shows no signs of pulmonary embolism but groundglass opacities scattered throughout the lower lobes. Bronchiectatic changes along with bronchial thickening primarily in the lower lobes. With bronchiectasis changes lower lobes, started on IV Zosyn and Zithromax. Project Asst consult. Pneumonia workup ordered. ABG 7.4 on 5 L of oxygen. Start on Airvo as patient is respiratory muscle fatigued and mild going ventilatory failure. Patient is being managed on scheduled bronchodilator, IV Solu-Medrol, Mucinex?DM, Tessalon Perles , incentive spirometry and Pep. 11/16: Pulmonary consult reviewed and appreciated. Patient has end-stage COPD. BNP and procalcitonin unremarkable. Recommended echo. Palliative care was recommended. 11/17: Hospice meeting at 1:30 PM. Further course as per hospice meeting decision 2. Bronchiectasis and end-stage COPD: Chest x-ray and CT images reviewed. 11/16 continue IV Zosyn. Respiratory panel negative. COVID-19 PCR negative. Gram stain shows 4+ WBC, 4+ GNR, 4+ GPR, 1+ GPC. Urinary antigens negative. Azithromycin discontinued. Doxycycline started. 11/17: Continue antibiotic. Full sputum culture is still pending 3. CAD status post CABG: Patient home medications continued. On baby aspirin, Imdur, losartan, metoprolol and rosuvastatin. 11/17: Echo shows EF 55%, mild concentric LVH, stage I diastolic dysfunction and mild AI. Tiny PFO. Trivial to mild MR and TR. 4. Hypertension and dyslipidemia: As mentioned above. Blood pressure in normalrange. 5. Chronic tobacco use, patient quit about a year ago 6. DVT prophylaxis high risk: Enoxaparin 40 mL subcu daily. Living will/advanced directive/end of life care: Patient does not living will oradvanced directive. His girlfriend who lives for many years is next to kin and present to ED. After discussion of benefits/risks procedures involved with full code, DNR CC arrest and DNR CC, the patient opted for DNR CC arrest with nointubation Patient doesn't want artificial life support including intubation, tube feed, ventilator and/chest compression, and DC shock if needed. Patient is unclear about central line/PICC line or vasopressor if needed. Total time spent in [id number] encounter in discussion of advanced directive 17 minutes. Microbiology Past 72 Hours 11/15/24 15:50 Sputum, Expectorated/Coughed Gram Stain - Final 11/15/24 16:40 Mucosa - Nasopharyngeal Respiratory Panel (PCR) - Final 11/15/24 16:40 Mucosa - Nasopharyngeal Coronavirus COVID-19 PCR - Final 11/15/24 15:30 Urine, Clean Catch Legionella Antigen - Final 11/15/24 15:30 Urine, Clean Catch Streptococcus pneumoniae Antigen (M - Final Laboratory Results 11/17/24 10:58: Sodium 138, Potassium 4.3, Chloride 104, Carbon Dioxide 22.7, Anion Gap 11, BUN 23 H, Creatinine 0.97, Estim Creat Clear Calc 60.74, Est GFR (MDRD) Non-Af 79, BUN/Creatinine Ratio 23.2 H, Glucose 112 H, Lactic Acid 2.0, Calcium 9.0 Echocardiogram 11/16/24 09:29 Interpretation Summary The study was technically difficult. Mild concentric left ventricular hypertrophy. The LV systolic function is normal. EF is 55 %. Stage 1 diastolic dysfunction. Bubble study appears positive for tiny PFO. Mild (1+) aortic valve insufficiency. Trivial to mild mitral and tricuspid valve insufficiency. Clinical Impression(s) from Imaging Studies Chest X-Ray 11/15/24 10:27 IMPRESSION: No active cardiopulmonary disease. Parenchymal scarring and/or subsegmental atelectasis, left lower lobe. Reading Location: [facility] Chest CTA 11/15/24 11:35 IMPRESSION: No signs of pulmonary embolism. Centrilobular emphysematous changes. Ground-glass opacities are scattered throughout the lower lobes. Can not exclude mild inflammation. Bronchiectatic changes along with bronchial thickening primarily in the lower lobes. Reading Location: [facility] Charges/Coding Visit Charges Inpatient E&M: 81019 Subs Hosp L2 11/17/24 1243 <Electronically signed by Rohan Henao MD> Cosigner Signature (if applicable): CC: ~ Signed [facility] Work Phone: [phone] 195-405105-10-2025 Progress note Author Carlos Sanchez [facility] Note Date/Time November 17, 2024 10:53 am [facility] Medical Records Department [address] [place] [address] Progress Note - Project Asst 11/17/24 1048 MR#: [id number] Acct: [id number] Name: NANETTE MONROY Rep #:[id number] : 1945 79 From: Carlos Sanchez MD PCP: Dr. Fernandez Baig, DO Status:ADM IN Location: [facility] [id number] Objective Data Objective Data Vital Signs: Vital Signs Last response 3 Temperature 36.7 C 11/17/24 09:47 Temperature Source Temporal 11/17/24 09:47 Pulse Rate 78 11/17/24 09:47 Pulse Strength Weak (1+) 11/17/24 08:43 Respiratory Rate 20 H 11/17/24 09:47 Respiratory Effort Accessory Muscle Use, Pursed Lip 11/17/24 08:43 Respiratory Depth Shallow 11/15/24 10:04 Respiratory Pattern Normal 11/17/24 07:11 Blood Pressure 126/71 H 11/17/24 09:47 Blood Pressure Mean 89 11/17/24 09:47 Blood Pressure Source Monitor 11/17/24 09:47 Blood Pressure Position Semi-Fowlers 11/17/24 09:47 Blood Pressure Location Right Arm 11/17/24 09:47 Pulse Ox 95 11/17/24 09:47 Oxygen Delivery Method Nasal Cannula 11/17/24 09:47 Oxygen Flow Rate (L/min) 6 11/17/24 09:47 I&O: I&O Last 24 Hours 3 11/16/24 11/16/24 11/17/24 11:59 23:59 11:59 Intake Total 1100 / 1814 714 / 1814 235.75 / 235.75 Output Total 250 / 600 750 / 750 Balance 1100 / 1214 464 / 1214 -514.25 / -514.25 I&O: Total Stay 3 11/15/24 10:00 thru 11/17/24 06:51 Intake Total 2500.00 Output Total 1000 Balance 1500.00 Current Meds Ordered / Administered: Current meds ordered / Administered 3 Generic Name Dose Route Start Last Admin Trade Name Freq PRN Reason Stop Dose Admin Acetaminophen 650 mg 11/15/24 14:59 Acetaminophen 325 Mg Tablet PO Q6H PRN PRN Pain 1-10 Or Fever>100.7 Albuterol/Ipratropium 3 ml 11/15/24 14:30 11/17/24 07:09 Ipratropium/Albuterol Sulfate 3 Ml Ampul.Neb INHALATION 3 ml Q4HWA.RT TALIB Administration Aspirin 81 mg 11/15/24 20:00 11/16/24 21:44 Aspirin E.C. 81 Mg Tablet PO 81 mg DAILY@2000 [facility] Administration Atorvastatin Calcium 40 mg 11/16/24 10:00 11/17/24 09:29 Atorvastatin Calcium 40 Mg Tablet PO 40 mg DAILY TALIB Administration Benzonatate 200 mg 11/15/24 22:00 11/17/24 05:40 Benzonatate 100 Mg Capsule PO Not Given TID [facility] Doxycycline Monohydrate 100 mg 11/16/24 22:00 11/17/24 09:29 Doxycycline 100 Mg Capsule PO 100 mg BID TALIB Administration Enoxaparin Sodium 40 mg 11/15/24 14:59 11/17/24 09:29 Enoxaparin 40 Mg/0.4 Ml Syringe SC 40 mg Q24 TALIB Administration Guaifenesin 2 tablet 11/15/24 14:59 11/17/24 09:30 Guaifenesin/D-Methorphan Tab.Sr.12h PO 2 tablet BID [facility] Administration Piperacillin Sod/Tazobactam 50 mls @ 12.5 mls/hr 11/15/24 14:55 11/17/24 05:39 Sod 3.375 gm/ Sodium Chloride IV 12.5 mls/hr Q8 TALIB Administration Sodium Chloride 250 mls @ 15 mls/hr 11/15/24 15:20 11/17/24 06:51 IV Infused .[id number] PRN Infusion Saline Flush Sodium Chloride 250 mls @ 15 mls/hr 11/15/24 15:20 IV .[id number] PRN Additional IVPB Infusion Isosorbide Mononitrate 30 mg 11/16/24 12:00 11/16/24 12:18 Isosorbide Mononitrate 30 Mg Tablet PO 30 mg DAILY@1200 [facility] Administration Protocol Losartan Potassium 25 mg 11/15/24 22:00 11/17/24 09:29 Losartan Potassium 25 Mg Tablet PO 25 mg BID [facility] Administration Protocol Metoprolol Succinate 12.5 mg 11/16/24 10:00 11/17/24 09:30 Metoprolol(Xl)Succ 25 Mg Tablet PO 12.5 mg DAILY [facility] Administration Protocol Nitroglycerin 0.4 mg 11/15/24 15:11 Nitroglycerin (Inpatient Use) 0.4 Mg Tab.Subl SL Q5M PRN CARDIAC/CHEST PAIN Prednisone 40 mg 11/17/24 12:00 Prednisone 20 Mg Tablet PO BREAKFAST [facility] Psyllium Hydrophilic Mucilloid 1 packet 11/15/24 14:59 Psyllium 1 Packet PO DAILY PRN PRN Constipation Senna/Docusate Sodium 2 tablet 11/15/24 22:00 11/17/24 09:30 Senna/Docusate Sodium 1 Tablet PO 2 tablet BID TALIB Administration Sodium Chloride 10 - 40 ml 11/15/24 15:20 11/15/24 16:21 0.9% Saline Lock 10 Ml Syringe IV 10 ml UD PRN Administration SALINE FLUSH Lab / Micro Data 11/16/24 04:27 11/16/24 04:27 Micro: Microbiology 11/15/24 15:50 Sputum, Expectorated/Coughed Gram Stain - Final Imaging Radiology Impression Echocardiogram 11/16/24 09:29 Interpretation Summary The study was technically difficult. Mild concentric left ventricular hypertrophy. The LV systolic function is normal. EF is 55 %. Stage 1 diastolic dysfunction. Bubble study appears positive for tiny PFO. Mild (1+) aortic valve insufficiency. Trivial to mild mitral and tricuspid valve insufficiency. Ordering Physician: Harsh Manzo Referring Physician: Fernandez Baig Performed By: Gretchen Sauer RDCS Assessment and Plan . Assessment and plan: 1. Resp Failure:acute on chronic: Hypoxemic + Chronic: hypercapnic. Etiology of exac not clear. CTA showed subtle GGO. VIRAL wash:-. He at baseline retains CO2. His baseline HCO3 is in the high 20s. Yesterday it was 18. This can obviously make him more sob: Repeat BMP now. Check lactate. Back to baseline of 6L. 2. COPD exac: ? 2/2 viral syndrome. ? related to acid base issue. Continue nebs.Wean steroids to oral: 2 week taper. Excellent a/e on exam. 3. Pneumonia: ?. Subtle GGO. Can de-escalate antibxs soon. 4. Metabolic Acidosis: Repeat BMP, Check Lactic acid 5. FEN: oral diet 6. PX: chemical Critical Care Time:50 minutes The entirety of this encounter was done via Telemedicine Physical Exam Narrative awake, sitting in chair pupils:= o/p:clear CV: RRR Chest: CTA B, excellent a/e Abd :soft, NT, +bs Ext: no c/e/c Skin: no rashes Subjective Subjective feeling better. Close to baseline 11/17/24 1053 <Electronically signed by Carlos Sanchez MD> Cosigner Signature (if applicable): CC: ~ Signed [facility] Work Phone: [phone] 429-650905-10-[address] [facility] Medical Records Department [address] [place] [address] Progress Note - Hospitalist 11/17/24933 MR#: [id number] Acct: [id number] Name: NANETTE MONROY Rep #:[id number] : 1945 79 From: Rohan Cortez PCP: Dr. Fernandez Baig, DO Status:ADM IN Location: [place] [address] 1 Reason for Visit Reason for Visit: Diagnoses Chronic obstructive pulmonary disease with (acute) exacerbation (11/15/24) Acute and chronic respiratory failure with hypoxia (11/15/24) Objective Data Objective Data Vital Signs: Vital Signs Temp Pulse Resp BP Pulse Ox O2 Del Method O2 Flow Rate 97.8 F 90 19 H 127/61 H 94 Nasal Cannula 6 11/17/24 03:40 11/17/24 08:43 11/17/24 08:43 11/17/24 03:40 11/17/24 07:11 11/17/24 08:43 11/17/24 08:43 Oxygen Flow Rate (L/min) 6 Oxygen Delivery Method Nasal Cannula Weight: 180 lb 0.013 oz Body Mass Index (BMI) 26.6 Intake & Output: Intake and Output for Last 24 Hours 11/15/24 11/16/24 11/17/24 23:59 23:59 23:59 Intake Total 450.25 / 450.25 1814 / 1814 235.75 / 235.75 Output Total 250 / 600 750 / 750 Balance 450.25 / 450.25 1564 / 1214 -514.25 / -514.25 Lab / Micro Data 11/16/24 04:27 05/10/25 10:58 Labs: Laboratory Results - last 24 hr 11/16/24 04:27: NT pro BNP II 503, Procalcitonin 0.06 Micro: Microbiology 11/15/24 15:50 Sputum, Expectorated/Coughed Gram Stain - Final 11/15/24 16:40 Mucosa - Nasopharyngeal Respiratory Panel (PCR) - Final 11/15/24 16:40 Mucosa - Nasopharyngeal Coronavirus COVID-19 PCR - Final 11/15/24 15:30 Urine, Clean Catch Legionella Antigen - Final 11/15/24 15:30 Urine, Clean Catch Streptococcus pneumoniae Antigen (M - Final Radiography Diagnostic Testing: Radiology Impression Echocardiogram 11/16/24 09:29 Interpretation Summary The study was technically difficult. Mild concentric left ventricular hypertrophy. The LV systolic function is normal. EF is 55 %. Stage 1 diastolic dysfunction. Bubble study appears positive for tiny PFO. Mild (1+) aortic valve insufficiency. Trivial to mild mitral and tricuspid valve insufficiency. Ordering Physician: Harsh Manzo Referring Physician: Fernandez Baig Performed By: Gretchen Sauer, CS Physical Exam Narrative Seen and examined. Shortness of breath is slightly better but is still conversational dyspnea. I think that is his baseline. Physical exam General: Alert, Oriented x3, Cooperative HEENT: Moderate hearing loss on hearing aids. Atraumatic, PERRLA, EOMI, Normocephalic. Oral: Oral mucosa dry. No Gingival or Mucosal Lesions/ Ulcerations Neck: Supple, No JVD, Negative Carotid Bruits Chest wall/Lungs: Air entry severely diminished in all lung montes. Dyspnea onminimal exertion. Bilateral expiratory rhonchi. Cardiovascular: Regular rate and rhythm, Normal S1,S2, systolic murmur. CABG Abdomen: Bowel Sounds Present, Soft, Non Tender, Non-Distended : No dysuria. No renal angle tenderness. No suprapubic tenderness. Extremities: No edema, Capillary Refill Less than 3 Seconds Skin: No rashes, No breakdown Musculoskeletal: No Tenderness to Palpation of Joints or Extremities. ROM intact. Neurological: Cranial nerves II-XII grossly intact, DTR 2+/4. No acute focal neurological deficit. Psych/Mental Status: Normal Affect, Appropriate. 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 Acute on chronic hypoxic respiratory failure due to COPD exacerbation: Patient is being admittedin the PCU. Chest CTA shows no signs of pulmonary embolism but groundglass opacities scattered throughout the lower lobes. Bronchiectatic changes along with bronchial thickening primarily in the lower lobes. With bronchiectasis changes lower lobes, started on IV Zosyn and Zithromax. Project Asst consult. Pneumonia workup ordered. ABG 7.4 on 5 L of oxygen. Start on Airvo as patient is respiratory muscle fatigued and mild going ventilatory failure. Patient is being managed on scheduled bronchodilator, IV Solu-Medrol, Mucinex?DM, Tessalon Perles , incentive spirometry and Pep. 11/16: Pulmonary consult reviewed and appreciated. Patient has end-stage COPD. BNP and procalcitonin unremarkable. Recommended echo. Palliative care was recommended. 11/17: Hospice meeting at 1:30 PM. Further course as per hospice meeting decision 2. Bronchiectasis and end-stage COPD: Chest x-ray and CT images reviewed. 11/16 continue IV Zosyn. Respiratory panel negative. COVID-19 PCR negative. Gram stain shows 4+ WBC, 4+ GNR, 4+ GPR, 1+ GPC. Urinary antigens negative. Azithromycin discontinued. Doxycycline started. 11/17: Continue antibiotic. Full sputum culture is still pending 3. CAD status post CABG: Patient home medications continued. On baby aspirin, Imdur, losartan, metoprolol and rosuvastatin. 11/17: Echo shows EF 55%, mild concentric LVH, stage I diastolic dysfunction and mild AI. Tiny PFO. Trivial to mild MR and TR. 4. Hypertension and dyslipidemia: As mentioned above. Blood pressure in normalrange. 5. Chronic tobacco use, patient quit about a year ago 6. DVT prophylaxis high risk: Enoxaparin 40 mL subcu daily. Living will/advanced directive/end of life care: Patient does not living will oradvanced directive.His girlfriend who lives for many years is next to kin and present to ED. After discussion of benefits/risks procedures involved with full code, DNR CC arrest and DNR CC, the patient opted for DNR CCarrest with nointubation Patient doesn't want artificial life support including intubation, tube feed, ventilator and/chest compression, and DC shock if needed. Patient is unclear about central line/PICC line or vasopressor if needed. Total time spent in [id number] encounter in discussion of advanced directive 17 minutes. Microbiology Past 72 Hours 11/15/24 15:50 Sputum, Expectorated/Coughed Gram Stain - Final 11/15/24 16:40 Mucosa - Nasopharyngeal Respiratory Panel (PCR) - Final 11/15/24 16:40 Mucosa - Nasopharyngeal Coronavirus COVID-19 PCR - Final 11/15/24 15:30 Urine, Clean Catch Legionella Antigen - Final 11/15/24 15:30 Urine, Clean Catch Streptococcus pneumoniae Antigen (M - Final Laboratory Results 11/17/24 10:58: Sodium 138, Potassium 4.3, Chloride 104, Carbon Dioxide 22.7, Anion Gap 11, BUN 23 H, Creatinine 0.97, Estim Creat Clear Calc 60.74, Est GFR (MDRD) Non-Af 79, BUN/Creatinine Ratio 23.2 H, Glucose 112 H, Lactic Acid 2.0, Calcium 9.0 Echocardiogram 11/16/24 09:29 Interpretation Summary The study was technically difficult. Mild concentric left ventricular hypertrophy. The LV systolic function is normal. EF is 55 %. Stage 1 diastolic dysfunction. Bubble study appears positive for tiny PFO. Mild (1+) aortic valve insufficiency. Trivial to mild mitral and tricuspid valve insufficiency. Clinical Impression(s) from Imaging Studies Chest X-Ray 11/15/24 10:27 IMPRESSION: No active cardiopulmonary disease. Parenchymal scarring and/or subsegmental atelectasis, left lower lobe. Reading Location: [facility] Chest CTA 11/15/24 11:35 IMPRESSION: No signs of pulmonary embolism. Centrilobular emphysematous changes. Ground-glass opacities are scattered throughout the lower lobes. Can not exclude mild inflammation. Bronchiectatic changes along with bronchial thickening primarily in the lower lobes. Reading Location: [facility] Charges/Coding Visit Charges Inpatient E&M: 26898 Subs Hosp L2 11/17/24 1243 Cosigner Signature (if applicable): CC: ~ Signed [facility]05-10-[address] [facility] Medical Records Department [address] [place] [address] Progress Note - Project Asst 11/17/24 1048 MR#: [id number] Acct: [id number] Name: NANETTE MONROY Rep #:[id number] : 1945 79 From: Carlos Sanchez MD PCP: Dr. Fernandez Baig, DO Status:ADM IN Location: [place] [address] Objective Data Objective Data Vital Signs: Vital Signs Last response 3 Temperature 36.7 C 11/17/24 09:47 Temperature Source Temporal 11/17/24 09:47 Pulse Rate 78 11/17/24 09:47 Pulse Strength Weak (1+) 11/17/24 08:43 Respiratory Rate 20 H 11/17/24 09:47 Respiratory Effort Accessory Muscle Use, Pursed Lip 11/17/24 08:43 Respiratory Depth Shallow 11/15/24 10:04 Respiratory Pattern Normal 11/17/24 07:11 Blood Pressure 126/71 H 11/17/24 09:47 Blood Pressure Mean 89 11/17/24 09:47 Blood Pressure Source Monitor 11/17/24 09:47 Blood Pressure Position Semi-Fowlers 11/17/24 09:47 Blood Pressure Location Right Arm 11/17/24 09:47 Pulse Ox 95 11/17/24 09:47 Oxygen Delivery Method Nasal Cannula 11/17/24 09:47 Oxygen Flow Rate (L/min) 6 11/17/24 09:47 I&O: I&O Last 24 Hours 3 11/16/24 11/16/24 11/17/24 11:59 23:59 11:59 Intake Total 1100 / 1814 714 / 1814 235.75 / 235.75 Output Total 250 / 600 750 / 750 Balance 1100 / 1214 464 / 1214 -514.25 / -514.25 I&O: Total Stay 3 11/15/24 10:00 thru 11/17/24 06:51 Intake Total 2500.00 Output Total 1000 Balance 1500.00 Current Meds Ordered / Administered: Current meds ordered / Administered 3 Generic Name Dose Route Start Last Admin Trade Name Freq PRN Reason Stop Dose Admin Acetaminophen 650 mg 11/15/24 14:59 Acetaminophen 325 Mg Tablet PO Q6H PRN PRN Pain 1-10 Or Fever>100.7 Albuterol/Ipratropium 3 ml 11/15/24 14:30 11/17/24 07:09 Ipratropium/Albuterol Sulfate 3 Ml Ampul.Neb INHALATION 3 ml Q4HWA.RT TALIB Administration Aspirin 81 mg 11/15/24 20:00 11/16/24 21:44 Aspirin E.C. 81 Mg Tablet PO 81 mg DAILY@2000 TALIB Administration Atorvastatin Calcium 40 mg 11/16/24 10:00 11/17/24 09:29 Atorvastatin Calcium 40 Mg Tablet PO 40 mg DAILY TALIB Administration Benzonatate 200 mg 11/15/24 22:00 11/17/24 05:40 Benzonatate 100 Mg Capsule PO Not Given TID TALIB Doxycycline Monohydrate 100 mg 11/16/24 22:00 11/17/24 09:29 Doxycycline 100 Mg Capsule PO 100 mg BID TALIB Administration Enoxaparin Sodium 40 mg 11/15/24 14:59 11/17/24 09:29 Enoxaparin 40 Mg/0.4 Ml Syringe SC 40 mg Q24 TALIB Administration Guaifenesin 2 tablet 11/15/24 14:59 11/17/24 09:30 Guaifenesin/D-Methorphan Tab.Sr.12h PO 2 tablet BID TALIB Administration Piperacillin Sod/Tazobactam 50 mls @ 12.5 mls/hr 11/15/24 14:55 11/17/24 05:39 Sod 3.375 gm/ Sodium Chloride IV 12.5 mls/hr Q8 TALIB Administration Sodium Chloride 250 mls @ 15 mls/hr 11/15/24 15:20 11/17/24 06:51 IV Infused .[id number] PRN Infusion Saline Flush Sodium Chloride 250 mls @ 15 mls/hr 11/15/24 15:20 IV .[id number] PRN Additional IVPB Infusion Isosorbide Mononitrate 30 mg 11/16/24 12:00 11/16/24 12:18 Isosorbide Mononitrate 30 Mg Tablet PO 30 mg DAILY@1200 TALIB Administration Protocol Losartan Potassium 25 mg 11/15/24 22:00 11/17/24 09:29 Losartan Potassium 25 Mg Tablet PO 25 mg BID TALIB Administration Protocol Metoprolol Succinate 12.5 mg 11/16/24 10:00 11/17/24 09:30 Metoprolol(Xl)Succ 25 Mg Tablet PO 12.5 mg DAILY TALIB Administration Protocol Nitroglycerin 0.4 mg 11/15/24 15:11 Nitroglycerin (Inpatient Use) 0.4 Mg Tab.Subl SL Q5M PRN CARDIAC/CHEST PAIN Prednisone 40 mg 11/17/24 12:00 Prednisone 20 Mg Tablet PO BREAKFAST [facility] Psyllium Hydrophilic Mucilloid 1 packet 11/15/24 14:59 Psyllium 1 Packet PO DAILY PRN PRN Constipation Senna/Docusate Sodium 2 tablet 11/15/24 22:00 11/17/24 09:30 Senna/Docusate Sodium 1 Tablet PO 2 tablet BID TALIB Administration Sodium Chloride 10 - 40 ml 11/15/24 15:20 11/15/24 16:21 0.9% Saline Lock 10 Ml Syringe IV 10 ml UD PRN Administration SALINE FLUSH Lab / Micro Data 11/16/24 04:27 11/16/24 04:27 Micro: Microbiology 11/15/24 15:50 Sputum, Expectorated/Coughed Gram Stain - Final Imaging Radiology Impression Echocardiogram 11/16/24 09:29 Interpretation Summary The study was technically difficult. Mild concentric left ventricular hypertrophy. The LV systolic function is normal. EF is 55 %. Stage 1 diastolic dysfunction. Bubble study appears positive for tiny PFO. Mild (1+) aortic valve insufficiency. Trivial to mild mitral and tricuspid valve insufficiency. Ordering Physician: Harsh Manzo Referring Physician: Fernandez Baig Performed By: Gretchen Sauer RDCS Assessment and Plan . Assessment and plan: 1. Resp Failure:acute on chronic: Hypoxemic + Chronic: hypercapnic. Etiology of exac not clear. CTAshowed subtle GGO. VIRAL wash:-. He at baseline retains CO2. His baseline HCO3 is in the high 20s. Yesterday it was 18. This can obviously make him more sob: Repeat BMP now. Check lactate. Back to baseline of 6L. 2. COPD exac: ? 2/2 viral syndrome. ? related to acid base issue. Continue nebs.Wean steroids to oral: 2 week taper. Excellent a/e on exam. 3. Pneumonia: ?. Subtle GGO. Can de-escalate antibxs soon. 4. Metabolic Acidosis: Repeat BMP, Check Lactic acid 5. FEN: oral diet 6. PX: chemical Critical Care Time:50 minutes The entirety of this encounter was done via Telemedicine Physical Exam Narrative awake, sitting in chair pupils:= o/p:clear CV: RRR Chest: CTA B, excellent a/e Abd :soft, NT, +bs Ext: no c/e/c Skin: no rashes Subjective Subjective feeling better. Close to baseline 11/17/24 1053 Cosigner Signature (if applicable): CC: ~ Signed [facility]05-09-2025 Progress note Author Rohan Henao [facility] Note Date/Time November 16, 2024 3:52pm [facility] Medical Records Department [address] [place] [id number] Progress Note - Hospitalist 11/16/24 0859 MR#: [id number] Acct: [id number] Name: NANETTE MONROY Rep #:[id number] : 1945 79 From: Rohan Cortez PCP: Dr. Fernandez Baig, DO Status:ADM IN Location: [place] [id number] Reason for Visit Reason for Visit: Diagnoses Chronic obstructive pulmonary disease with (acute) exacerbation (11/15/24) Acute and chronic respiratory failure with hypoxia (11/15/24) Objective Data Objective Data Vital Signs: Vital Signs Temp Pulse Resp BP Pulse Ox O2 Del Method O2 Flow Rate 98.0 F 79 20 H 131/68 H 90 Nasal Cannula 5 11/16/24 03:47 11/16/24 07:07 11/16/24 07:07 11/16/24 03:47 11/16/24 07:07 11/16/24 07:07 11/16/24 07:07 Oxygen Flow Rate (L/min) 5 Oxygen Delivery Method Nasal Cannula Weight: 180 lb Body Mass Index (BMI) 26.6 Intake & Output: Intake and Output for Last 24 Hours 11/14/24 11/15/24 11/16/24 23:59 23:59 23:59 Intake Total 450.25 / 450.25 1050 / 1050 Balance 450.25 / 450.25 1050 / 1050 Lab / Micro Data 11/16/24 04:27 11/16/24 04:27 Labs: Laboratory Results - last 24 hr 11/15/24 10:13: WBC 20.1 H, RBC 4.43 L, Hgb 14.0, Hct 42.3, MCV 95.5 H, MCH 31.6, MCHC 33.1, RDW Std Deviation 47.7 H, RDW Coeff of Crystal 13.5, Plt Count 221,MPV 9.4, Immature Gran % (Auto) 0.400, Neut % (Auto) 86.4 H, Lymph % (Auto) 6.7 L, Burt % (Auto) 6.1, Eos % (Auto) 0.2, Baso % (Auto) 0.2, Absolute Neuts (auto)17.3 H, Absolute Lymphs (auto) 1.35, Nucleated RBC % 0, D-Dimer Quant (PE/DVT) 0.90 H*, Sodium 139, Potassium 4.3, Chloride 102, Carbon Dioxide 24.4, Anion Gap12, BUN 12, Creatinine 0.87, Est GFR (MDRD) Non-Af 87, BUN/Creatinine Ratio 14.0, Glucose 116 H, Calcium 8.8, Magnesium 2.1, Troponin T High Sens 25 H 11/15/24 12:25: Troponin T Hi Sens 2 Hr 21 11/15/24 14:30: Troponin T Hi Sens 4Hr 20 11/16/24 04:27: WBC 15.3 H, RBC 4.38 L, Hgb 13.8, Hct 42.5, MCV 97.0 H, MCH 31.5, MCHC 32.5, RDW Std Deviation 48.3 H, RDW Coeff of Crystal 13.4, Plt Count 242,MPV 9.2, Immature Gran % (Auto) 0.700, Neut % (Auto) 94.1 H, Lymph % (Auto) 4.2 L, Burt % (Auto) 0.9, Eos % (Auto) 0.0, Baso % (Auto) 0.1, Absolute Neuts (auto)14.4 H, Absolute Lymphs (auto) 0.64 L, Nucleated RBC % 0, Sodium 139, Potassium 4.3, Chloride 105, Carbon Dioxide 18.6 L, Anion Gap 15, BUN 17, Creatinine 0.97,Estim Creat Clear Calc 60.74, Est GFR (MDRD) Non-Af 79, BUN/Creatinine Ratio 17.4, Glucose 114 H, Calcium 8.7 Micro: Microbiology 11/15/24 16:40 Mucosa - Nasopharyngeal Respiratory Panel (PCR) - Final 11/15/24 16:40 Mucosa - Nasopharyngeal Coronavirus COVID-19 PCR - Final 11/15/24 15:30 Urine, Clean Catch Legionella Antigen - Final 11/15/24 15:30 Urine, Clean Catch Streptococcus pneumoniae Antigen (M - Final ABG Data ABG results: ABG 11/15/24 14:04 Specimen Type ART Sample Site R Radial pH 7.43 Bicarbonate Actual 26.6 H Total CO2 28 Base Excess 2 O2 Saturation 97 O2 % 5.0 ABG pCO2 39.9 ABG pO2 86 Maria R Test Positive O2 Delivery Device Cannula Vent Mode Not entered Radiography Diagnostic Testing: Radiology Impression Chest X-Ray 11/15/24 10:27 IMPRESSION: No active cardiopulmonary disease. Parenchymal scarring and/or subsegmental atelectasis, left lower lobe. Reading Location: [facility] Chest CTA 11/15/24 11:35 IMPRESSION: No signs of pulmonary embolism. Centrilobular emphysematous changes. Ground-glass opacities are scattered throughout the lower lobes. Can not exclude mild inflammation. Bronchiectatic changes along with bronchial thickening primarily in the lower lobes. Reading Location: [facility] Physical Exam Narrative Seen and examined. Patient is still very short of breath, conversational dyspnea. Uses respiratorymuscles in order to talk. Physical exam General: Alert, Oriented x3, Cooperative HEENT: Moderate hearing loss on hearing aids. Atraumatic, PERRLA, EOMI, Normocephalic. Oral: Oral mucosa dry. No Gingival or Mucosal Lesions/ Ulcerations Neck: Supple, No JVD, Negative Carotid Bruits Chest wall/Lungs: Air entry severely diminished in all lung montes. Dyspnea atrest. Tachypnea. Bilateral expiratory rhonchi. Cardiovascular: Regular rate and rhythm, Normal S1,S2, systolic murmur. CABG Abdomen: Bowel Sounds Present, Soft, Non Tender, Non-Distended : No dysuria. No renal angle tenderness. No suprapubic tenderness. Extremities: No edema, Capillary Refill Less than 3 Seconds Skin: No rashes, No breakdown Musculoskeletal: No Tenderness to Palpation of Joints or Extremities. ROM intact. Neurological: Cranial nerves II-XII grossly intact, DTR 2+/4. No acute focal neurological deficit. Psych/Mental Status: Normal Affect, Appropriate. 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 Acute on chronic hypoxic respiratory failure due to COPD exacerbation: Patient is being admitted in the PCU. Chest CTA shows no signs of pulmonary embolism but groundglass opacities scattered throughout the lower lobes. Bronchiectatic changes along with bronchial thickening primarily in the lower lobes. With bronchiectasis changes lower lobes, started on IV Zosyn and Zithromax. Project Asst consult. Pneumonia workup ordered. ABG 7.4 / on 5 L of oxygen. Start on Airvo as patient is respiratory muscle fatigued and mild going ventilatory failure. Patient is being managed on scheduled bronchodilator, IV Solu-Medrol, Mucinex?DM, Tessalon Perles , incentive spirometry and Pep. 11/16: Pulmonary consult reviewed and appreciated. Patient has end-stage COPD. BNP and procalcitonin unremarkable. Recommended echo. Palliative care was recommended. 2. Bronchiectasis and end-stage COPD: Chest x-ray and CT images reviewed. 11/16 continue IV Zosyn. Respiratory panel negative. COVID-19 PCR negative. Gram stain shows 4+ WBC, 4+ GNR, 4+ GPR, 1+ GPC. Urinary antigens negative. Azithromycin discontinued. Doxycycline started. 3. CAD status post CABG: Patient home medications continued. On baby aspirin, Imdur, losartan, metoprolol and rosuvastatin. 4. Hypertension and dyslipidemia: As mentioned above. Blood pressure in normalrange. 5. Chronic tobacco use, patient quit about a year ago 6. DVT prophylaxis high risk: Enoxaparin 40 mL subcu daily. Living will/advanced directive/end of life care: Patient does not living will oradvanced directive. His girlfriend who lives for many years is next to kin and present to ED. After discussion of benefits/risks procedures involved with full code, DNR CC arrest and DNR CC, the patient opted for DNR CC arrest with nointubation Patient doesn't want artificial life support including intubation, tube feed, ventilator and/chest compression, and DC shock if needed. Patient is unclear about central line/PICC line or vasopressor if needed. Total time spent in [id number] encounter in discussion of advanced directive 17 minutes. Microbiology Past 72 Hours 11/15/24 15:50 Sputum, Expectorated/Coughed Gram Stain - Final 11/15/24 16:40 Mucosa - Nasopharyngeal Respiratory Panel (PCR) - Final 11/15/24 16:40 Mucosa - Nasopharyngeal Coronavirus COVID-19 PCR - Final 11/15/24 15:30 Urine, Clean Catch Legionella Antigen - Final 11/15/24 15:30 Urine, Clean Catch Streptococcus pneumoniae Antigen (M - Final Laboratory Results 11/15/24 10:13: Magnesium 2.1 11/15/24 14:04: Specimen Type ART, Sample Site R Radial, pH 7.43, Bicarbonate Actual 26.6 H, Total CO2 28, Base Excess 2, O2 Saturation 97, O2 % 5.0, ABG sTA334.9, ABG pO2 86, Maria R Test Positive, O2 Delivery Device Cannula, Vent Mode Notentered 11/15/24 14:30: Troponin T Hi Sens 4Hr 20 11/16/24 04:27: WBC 15.3 H, RBC 4.38 L, Hgb 13.8, Hct 42.5, MCV 97.0 H, MCH 31.5, MCHC 32.5, RDW Std Deviation 48.3 H, RDW Coeff of Crystal 13.4, Plt Count 242,MPV 9.2, Immature Gran % (Auto) 0.700, Neut % (Auto) 94.1 H, Lymph % (Auto) 4.2 L, Burt % (Auto) 0.9, Eos % (Auto) 0.0, Baso % (Auto) 0.1, Absolute Neuts (auto)14.4 H, Absolute Lymphs (auto) 0.64 L, Nucleated RBC % 0, Sodium 139, Potassium 4.3, Chloride 105, Carbon Dioxide 18.6 L, Anion Gap 15, BUN 17, Creatinine 0.97,Estim Creat Clear Calc 60.74, Est GFR (MDRD) Non-Af 79, BUN/Creatinine Ratio 17.4, Glucose 114 H, Calcium 8.7, NT pro BNP II 503, Procalcitonin 0.06 Clinical Impression(s) from Imaging Studies Chest X-Ray 11/15/24 10:27 IMPRESSION: No active cardiopulmonary disease. Parenchymal scarring and/or subsegmental atelectasis, left lower lobe. Reading Location: [facility] Chest CTA 11/15/24 11:35 IMPRESSION: No signs of pulmonary embolism. Centrilobular emphysematous changes. Ground-glass opacities are scattered throughout the lower lobes. Can not exclude mild inflammation. Bronchiectatic changes along with bronchial thickening primarily in the lower lobes. Reading Location: [facility] Charges/Coding Addendum Addendum: Total time of the visit including total time spent in counseling or coordinationof care, (more than 50% of the total time, spent in obtaining medical information from nurses and other ancillary care providers ,explaining to the patient about labs, imaging, diagnosis and management of active complex medical conditions), pulmonary consult review, discussion about palliative/hospice care,review of labs and imaging is 35 minutes. Visit Charges Inpatient E&M: 51401 Subs Hosp L3 11/16/24 1346 <Electronically signed by Rohan Henao MD> Cosigner Signature (if applicable): CC: ~ Signed ADDENDUM by Dr. Rohan Henao MD on 11/16/24 at 1552 Addendum Patient and his girlfriend accepted consult for palliative/hospice care. Hospice consult placed. CODE STATUS changed to DNR CC hospice care. 11/16/24 1552<Electronically signed by Rohan Henao MD> Cosigner Signature (if applicable): cc: ~* Signed [facility] Work Phone: [phone]) 839-700005-09-[address] [facility] Medical Records Department [address] [place] [address] Progress Note - Hospitalist 11/16/24 0859 MR#: [id number] Acct: [id number] Name: NANETTE MONROY Rep #:[id number] : 1945 79 From: Rohan Cortez PCP: Dr. Fernandez Baig, DO Status:ADM IN Location: [place] [address] 1 Reason for Visit Reason for Visit: Diagnoses Chronic obstructive pulmonary disease with (acute) exacerbation (11/15/24) Acute and chronic respiratory failure with hypoxia (11/15/24) Objective Data Objective Data Vital Signs: Vital Signs Temp Pulse Resp BP Pulse Ox O2 Del Method O2 Flow Rate 98.0 F 79 20 H 131/68 H 90 Nasal Cannula 5 11/16/24 03:47 11/16/24 07:07 11/16/24 07:07 11/16/24 03:47 11/16/24 07:07 11/16/24 07:07 11/16/24 07:07 Oxygen Flow Rate (L/min) 5 Oxygen Delivery Method Nasal Cannula Weight: 180 lb Body Mass Index (BMI) 26.6 Intake & Output: Intake and Output for Last 24 Hours 11/14/24 11/15/24 11/16/24 23:59 23:59 23:59 Intake Total 450.25 / 450.25 1050 / 1050 Balance 450.25 / 450.25 1050 / 1050 Lab / Micro Data 11/16/24 04:27 11/16/24 04:27 Labs: Laboratory Results - last 24 hr 11/15/24 10:13: WBC 20.1 H, RBC 4.43 L, Hgb 14.0, Hct 42.3, MCV 95.5 H, MCH 31.6, MCHC 33.1, RDW Std Deviation 47.7 H, RDW Coeff of Crystal 13.5, Plt Count 221,MPV 9.4, Immature Gran % (Auto) 0.400, Neut% (Auto) 86.4 H, Lymph % (Auto) 6.7 L, Burt % (Auto) 6.1, Eos % (Auto) 0.2, Baso % (Auto) 0.2, Absolute Neuts (auto)17.3 H, Absolute Lymphs (auto) 1.35, Nucleated RBC % 0, D-Dimer Quant (PE/DVT) 0.90H*, Sodium 139, Potassium 4.3, Chloride 102, Carbon Dioxide 24.4, Anion Gap12, BUN 12, Creatinine 0.87, Est GFR (MDRD) Non-Af 87, BUN/Creatinine Ratio 14.0, Glucose 116 H, Calcium 8.8, Magnesium 2.1,Troponin T High Sens 25 H 11/15/24 12:25: Troponin T Hi Sens 2 Hr 21 11/15/24 14:30: Troponin T Hi Sens 4Hr 20 11/16/24 04:27: WBC 15.3 H, RBC 4.38 L, Hgb 13.8, Hct 42.5, MCV 97.0 H, MCH 31.5, MCHC 32.5, RDW Std Deviation 48.3 H, RDW Coeff of [place] 13.4, Plt Count 242,MPV 9.2, Immature Gran % (Auto) 0.700, Neut% (Auto) 94.1 H, Lymph % (Auto) 4.2 L, Burt % (Auto) 0.9, Eos % (Auto) 0.0, Baso % (Auto) 0.1, Absolute Neuts (auto)14.4 H, Absolute Lymphs (auto) 0.64 L, Nucleated RBC % 0, Sodium 139, Potassium 4.3, Chloride 105, Carbon Dioxide 18.6 L, Anion Gap 15, BUN 17, Creatinine 0.97,Estim Creat Clear Calc 60.74, Est GFR (MDRD) Non-Af 79, BUN/Creatinine Ratio 17.4, Glucose 114 H, Calcium 8.7 Micro: Microbiology 11/15/24 16:40 Mucosa - Nasopharyngeal Respiratory Panel (PCR) - Final 11/15/24 16:40 Mucosa - Nasopharyngeal Coronavirus COVID-19 PCR - Final 11/15/24 15:30 Urine, Clean Catch Legionella Antigen - Final 11/15/24 15:30 Urine, Clean Catch Streptococcus pneumoniae Antigen (M - Final ABG Data ABG results: ABG 11/15/24 14:04 Specimen Type ART Sample Site R Radial pH 7.43 Bicarbonate Actual 26.6 H Total CO2 28 Base Excess 2 O2 Saturation 97 O2 % 5.0 ABG pCO2 39.9 ABG pO2 86 Maria R Test Positive O2 Delivery Device Cannula Vent Mode Not entered Radiography Diagnostic Testing: Radiology Impression Chest X-Ray 11/15/24 10:27 IMPRESSION: No active cardiopulmonary disease. Parenchymal scarring and/or subsegmental atelectasis, left lower lobe. Reading Location: [facility] Chest CTA 11/15/24 11:35 IMPRESSION: No signs of pulmonary embolism. Centrilobular emphysematous changes. Ground-glass opacities are scattered throughout the lower lobes. Can not exclude mild inflammation. Bronchiectatic changes along with bronchial thickening primarily in the lower lobes. [facility] Physical Exam Narrative Seen and examined. Patient is still very short of breath, conversational dyspnea. Uses respiratorymuscles in order to talk. Physical exam General: Alert, Oriented x3, Cooperative HEENT: Moderate hearing loss on hearing aids. Atraumatic, PERRLA, EOMI, Normocephalic. Oral: Oral mucosa dry. No Gingival or Mucosal Lesions/ Ulcerations Neck: Supple, No JVD, Negative Carotid Bruits Chest wall/Lungs: Air entry severely diminished in all lung montes. Dyspnea atrest. Tachypnea. Bilateral expiratory rhonchi. Cardiovascular: Regular rate and rhythm, Normal S1,S2, systolic murmur. CABG Abdomen: Bowel Sounds Present, Soft, Non Tender, Non-Distended : No dysuria. No renal angle tenderness. No suprapubic tenderness. Extremities: No edema, Capillary Refill Less than 3 Seconds Skin: No rashes, No breakdown Musculoskeletal: No Tenderness to Palpation of Joints or Extremities. ROM intact. Neurological: Cranial nerves II-XII grossly intact, DTR 2+/4. No acute focal neurological deficit. Psych/Mental Status: Normal Affect, Appropriate. 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 Acute on chronic hypoxic respiratory failure due to COPD exacerbation: Patient is being admittedin the PCU. Chest CTA shows no signs of pulmonary embolism but groundglass opacities scattered throughout the lower lobes. Bronchiectatic changes along with bronchial thickening primarily in the lower lobes. With bronchiectasis changes lower lobes, started on IV Zosyn and Zithromax. Project Asst consult. Pneumonia workup ordered. ABG 7.4 on 5 L of oxygen. Start on Airvo as patient is respiratory muscle fatigued and mild going ventilatory failure. Patient is being managed on scheduled bronchodilator, IV Solu-Medrol, Mucinex?DM, Tessalon Perles , incentive spirometry and Pep. 11/16: Pulmonary consult reviewed and appreciated. Patient has end-stage COPD. BNP and procalcitonin unremarkable. Recommended echo. Palliative care was recommended. 2. Bronchiectasis and end-stage COPD: Chest x-ray and CT images reviewed. 11/16 continue IV Zosyn. Respiratory panel negative. COVID-19 PCR negative. Gram stain shows 4+ WBC, 4+ GNR, 4+ GPR, 1+ GPC. Urinary antigens negative. Azithromycin discontinued. Doxycycline started. 3. CAD status post CABG: Patient home medications continued. On baby aspirin, Imdur, losartan, metoprolol and rosuvastatin. 4. Hypertension and dyslipidemia: As mentioned above. Blood pressure in normalrange. 5. Chronic tobacco use, patient quit about a year ago 6. DVT prophylaxis high risk: Enoxaparin 40 mL subcu daily. Living will/advanced directive/end of life care: Patient does not living will oradvanced directive.His girlfriend who lives for many years is next to kin and present to ED. After discussion of benefits/risks procedures involved with full code, DNR CC arrest and DNR CC, the patient opted for DNR CCarrest with nointubation Patient doesn't want artificial life support including intubation, tube feed, ventilator and/chest compression, and DC shock if needed. Patient is unclear about central line/PICC line or vasopressor if needed. Total time spent in [id number] encounter in discussion of advanced directive 17 minutes. Microbiology Past 72 Hours 11/15/24 15:50 Sputum, Expectorated/Coughed Gram Stain - Final 11/15/24 16:40 Mucosa - Nasopharyngeal Respiratory Panel (PCR) - Final 11/15/24 16:40 Mucosa - Nasopharyngeal Coronavirus COVID-19 PCR - Final 11/15/24 15:30 Urine, Clean Catch Legionella Antigen - Final 11/15/24 15:30 Urine, Clean Catch Streptococcus pneumoniae Antigen (M - Final Laboratory Results 11/15/24 10:13: Magnesium 2.1 11/15/24 14:04: Specimen Type ART, Sample Site R Radial, pH 7.43, Bicarbonate Actual 26.6 H, Total CO2 28, Base Excess 2, O2 Saturation 97, O2 % 5.0, ABG zHM288.9, ABG pO2 86, Maria R Test Positive, [id number] Device Cannula, Vent Mode Notentered 11/15/24 14:30: Troponin T Hi Sens 4Hr 20 11/16/24 04:27: WBC 15.3 H, RBC 4.38 L, Hgb 13.8, Hct 42.5, MCV 97.0 H, MCH 31.5, MCHC 32.5, RDW Std Deviation 48.3 H, RDW Coeff of Crystal 13.4, Plt Count 242,MPV 9.2, Immature Gran % (Auto) 0.700, Neut% (Auto) 94.1 H, Lymph % (Auto) 4.2 L, Burt % (Auto) 0.9, Eos % (Auto) 0.0, Baso % (Auto) 0.1, Absolute Neuts (auto)14.4 H, Absolute Lymphs (auto) 0.64 L, Nucleated RBC % 0, Sodium 139, Potassium 4.3, Chloride 105, Carbon Dioxide 18.6 L, Anion Gap 15, BUN 17, Creatinine 0.97,Estim Creat Clear Calc 60.74, Est GFR (MDRD) Non-Af 79, BUN/Creatinine Ratio 17.4, Glucose 114 H, Calcium 8.7, NT pro BNP II 503, Procalcitonin 0.06 Clinical Impression(s) from Imaging Studies Chest X-Ray 11/15/24 10:27 IMPRESSION: No active cardiopulmonary disease. Parenchymal scarring and/or subsegmental atelectasis, left lower lobe. Reading Location: [facility] Chest CTA 11/15/24 11:35 IMPRESSION: No signs of pulmonary embolism. Centrilobular emphysematous changes. Ground-glass opacities are scattered throughout the lower lobes. Can not exclude mild inflammation. Bronchiectatic changes along with bronchial thickening primarily in the lower lobes. Reading Location: [facility] Charges/Coding Addendum Addendum: Total time of the visit including total time spent in counseling or coordinationof care, (more than50% of the total time, spent in obtaining medical information from nurses and other ancillary care providers ,explaining to the patient about labs, imaging, diagnosis and management of active complexmedical conditions), pulmonary consult review, discussion about palliative/hospice care,review of labs and imaging is 35 minutes. Visit Charges Inpatient E&M: 97208 Subs Hosp L3 11/16/24 1346 Cosigner Signature (if applicable): CC: ~ Signed ADDENDUM by Dr. Rohan Henao MD on 11/16/24 at 1552 Addendum Patient and his girlfriend accepted consult for palliative/hospice care. Hospice consult placed. CODE STATUS changed to DNR CC hospice care. 11/16/24 1552 Cosigner Signature (if applicable): cc: ~* Signed [facility]05-09-2025 Consult note Author Harsh Manzo [facility] Note Date/Time November 16, 2024 11:26a m [facility] Medical Records Department [address] [place] [address] Consultation - Project Asst 11/16/24 0849 MR#: [id number] Acct: [id number] Name: NANETTE MONROY Rep #:[id number] : 1945 79 From: Harsh Manzo DO PCP: Dr. Fernandez Baig, Status:ADM IN [facility] Assessment & Plan Assessment/Plan (1) COPD exacerbation: PLAN: Plan RECOMMENDATIONS: 1. Supplemental oxygen to maintain saturations at or above 90%. 2. Obtain echocardiogram. 3. Continue empiric antibiotics, pending culture results. 4. Continue bronchodilators and steroids. 5. Continue appropriate DVT prophylaxis. 6. Encourage incentive spirometer use and mobilize patient as tolerated. IMPRESSIONS: 1. Shortness of breath/chronic hypoxemic respiratory failure/end-stage COPD with exacerbation The patient is followed in the pulmonary medicine clinic due to a history of end-stage COPD on maximum outpatient therapy along with noninvasive ventilator and baseline oxygen requirement of 6 L/min. In addition, the patient is maintained on low-dose prednisone and azithromycin on Tuesday, Tuesday, Tuesday. He continues to experience dyspnea, despite negative acute pulmonary workup. The findings noted on CT imaging of the chest all appear chronic. The patient is on his baseline oxygen requirement of 6 L/min. At this time, we will plan tocontinue antibiotics, pending sputum culture results. He will be continued on scheduled bronchodilators and steroids. BNP and procalcitonin were unremarkable. Echocardiogram will be obtained to evaluate for any cardiac dysfunction. Otherwise, given the end-stage nature of his lung disease, the patient would be appropriate for referral to palliative care for ongoing assistance with symptom management. 2. History of coronary artery disease status post CABG/hypertension/chronic tobacco dependency in remission Complicates care, management, recovery and prognosis. Continue supportive care as noted above. This note was generated with Boni dictation software. It may contain incorrectwords, spelling, and punctuation that were not noted in checking the note beforesigning. HPI Consult Data Date of Consult: 11/16/24 HPI Narrative Reason for Consultation: COPD exacerbation HPI Narrative: The patient is an 79-year-old male, with a history as outlined below, who presented to the emergency department on November 15 with worsening dyspnea. The patient has a known history of end-stage COPD along with chronic hypoxemic respiratory failure, with a baseline oxygen requirement of 5 to 6 L/min. In addition, he is prescribed a noninvasive ventilator at his baseline and is maintained on a triple therapy nebulizer regimen. He is also maintained on azithromycin 3 times weekly and chronic low-dose prednisone therapy. The patient is followed in the pulmonary medicine clinic on an outpatient basis, with his last appointment having occurred in September 2024. On presentation to the emergency department, the patient was documented to be afebrile hemodynamically stable. Laboratory evaluation was notable for a white blood cell count of 20,000. ABG was notable for a pH of 7.43 with a pCO2 of 40 and pO2 of 86. Chemistry profile was unremarkable. COVID, influenza and RSV PCR's were negative. Respiratory viral panel was negative. Strep and urine Legionella antigens were negative. CTA showed no evidence for pulmonary embolism, but did demonstrate bilateral emphysematous changes along with lower lobe bronchiectasis and stable pulmonary nodules. The patient was subsequently placed on antimicrobials, bronchodilators and steroids. He was admitted to the hospital for further management. 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 of other ocular prosthetic devices, implants and grafts, initial encounter Nocturnal hypoxia Tobacco dependence in remission Chronic hypoxemic respiratory failure COPD (chronic obstructive pulmonary disease) Home Medications ?Medication ?Instructions ?Recorded ?Last Taken ?Type aspirin 81 mg tablet,delayed 81 mg PO DAILY@1999 [facility] 12/24/19 11/14/24 History release nitroglycerin 0.4 mg sublingual 0.4 mg sublingual Q5-1 5M PRN chest 03/22/22 Unknown Rx tablet pain #25 tabs Handicap Placcard #1 ea 07/29/22 Unknown Rx albuterol sulfate 2.5 mg/3 mL 2.5 mg (3 mL) inhalation Q4H #180 08/14/24 11/14/24 Rx (0.083 %) solution for nebulization mL albuterol sulfate 90 mcg/actuation 2 puff inhalation Q 4H PRN 08/14/24 Unknown Rx aerosol inhaler shortness of breath or wheez ing #8.5 grams arformoterol 15 mcg/2 mL solution 15 mcg (2 mL) inhala tion BID #120 08/14/24 11/14/24 Rx for nebulization (Brovana) mL budesonide 0.5 mg/2 mL suspension 0.5 mg (2 mL) inhala tion BID #120 08/14/24 11/14/24 Rx for nebulization mL guaifenesin 1,200 mg tablet, 1,200 mg PO Q12H #60 tabs 08/14/24 11/14/24 Rx extended release 12 hr metoprolol succinate 25 mg 12.5 mg (1/2 x 25 mg) PO DA RENÉ #45 08/20/24 11/14/24 Rx tablet,extended release 24 hr TABLETS rosuvastatin 20 mg tablet 20 mg PO DAILY #90 tabs 08/11 011/14/24 Rx ipratropium 0.5 mg-albuterol 3 mg 3 ml inhalation ALMAZ Y 09/11/24 11/14/24 History (2.5 mg base)/3 mL nebulization soln isosorbide mononitrate 30 mg 30 mg PO DAILY #90 tabs 0 09/11/24 11/14/24 Rx tablet,extended release 24 hr losartan 25 mg tablet 25 mg PO BID #180 tabs 09/1111/14/24 Rx prednisone 10 mg tablet 10 mg PO DAILY 11/15/2402/01 History Allergy/AdvReac Type Severity Reaction Status Date / Time tiotropium (From Spiriva AdvReac Severe Decreased Verified 11/15/24 10:01 with HandiHaler) Urination cyanocobalamin (vitamin B12) AdvReac Other Verified 11/15/24 10:01 Family History Sister CAD (coronary artery disease) Hx of CABG Sister Breast cancer Brother COPD (chronic obstructive pulmonary disease) Surgical History Presence of aortocoronary bypass graft (~08/01/01) History of cochlear implant Postsurgical percutaneous transluminal coronary angioplasty (PTCA) status (~1989) Aortocoronary bypass status (~08/01/01) History of vasectomy Social History Smoking Status: Former smoker how long ago did patient quit smokin + years ago second hand exposure: No alcohol intake: current alcohol intake frequency: a few times a week substance use type: does not use caffeine: Yes ROS ROS Narrative 10 systems were reviewed with pertinent positives as noted in the HPI above. Physical Exam Const alert, oriented x3 and no apparent distress General Appearance: cooperative HEENT normocephalic, head/scalp atraumatic and moist oral mucous membranes Eyes PERRL, EOMs intact bilaterally and conjunctivae normal Neck supple General: trachea midline Chest inspection of chest normal Resp Effort and Inspection: able to speak in complete sentences and tachypneic Auscultation: diminished lung sounds; Negative for rales, rhonchi or wheezes Cardio regular rate and regular rhythm GI normal to inspection, nondistended, normoactive bowel sounds Extremity no clubbing, cyanosis or edema Skin no rashes or lesions noted Neuro CN's II-XII intact bilaterally, moves all extremities and no focal motor deficits Psych cooperative and affect normal Lab / Micro Data 11/16/24 04:27 11/16/24 04:27 Labs: Laboratory Results - last 24 hr 11/15/24 10:13: WBC 20.1 H, RBC 4.43 L, Hgb 14.0, Hct 42.3, MCV 95.5 H, MCH 31.6, MCHC 33.1, RDW Std Deviation 47.7 H, RDW Coeff of Crystal 13.5, Plt Count 221,MPV 9.4, Immature Gran % (Auto) 0.400, Neut % (Auto) 86.4 H, Lymph % (Auto) 6.7 L, Burt % (Auto) 6.1, Eos % (Auto) 0.2, Baso % (Auto) 0.2, Absolute Neuts (auto)17.3 H, Absolute Lymphs (auto) 1.35, Nucleated RBC % 0, D-Dimer Quant (PE/DVT) 0.90 H*, Sodium 139, Potassium 4.3, Chloride 102, Carbon Dioxide 24.4, Anion Gap12, BUN 12, Creatinine 0.87, Est GFR (MDRD) Non-Af 87, BUN/Creatinine Ratio 14.0, Glucose 116 H, Calcium 8.8, Magnesium 2.1, Troponin T High Sens 25 H 11/15/24 12:25: Troponin T Hi Sens 2 Hr 21 11/15/24 14:30: Troponin T Hi Sens 4Hr 20 11/16/24 04:27: WBC 15.3 H, RBC 4.38 L, Hgb 13.8, Hct 42.5, MCV 97.0 H, MCH 31.5, MCHC 32.5, RDW Std Deviation 48.3 H, RDW Coeff of Crystal 13.4, Plt Count 242,MPV 9.2, Immature Gran % (Auto) 0.700, Neut % (Auto) 94.1 H, Lymph % (Auto) 4.2 L, Burt % (Auto) 0.9, Eos % (Auto) 0.0, Baso % (Auto) 0.1, Absolute Neuts (auto)14.4 H, Absolute Lymphs (auto) 0.64 L, Nucleated RBC % 0, Sodium 139, Potassium 4.3, Chloride 105, Carbon Dioxide 18.6 L, Anion Gap 15, BUN 17, Creatinine 0.97,Estim Creat Clear Calc 60.74, Est GFR (MDRD) Non-Af 79, BUN/Creatinine Ratio 17.4, Glucose 114 H, Calcium 8.7 Micro: Microbiology 11/15/24 16:40 Mucosa - Nasopharyngeal Respiratory Panel (PCR) - Final 11/15/24 16:40 Mucosa - Nasopharyngeal Coronavirus COVID-19 PCR - Final 11/15/24 15:30 Urine, Clean Catch Legionella Antigen - Final 11/15/24 15:30 Urine, Clean Catch Streptococcus pneumoniae Antigen (M - Final ABG Data ABG results: ABG 11/15/24 14:04 Specimen Type ART Sample Site R Radial pH 7.43 Bicarbonate Actual 26.6 H Total CO2 28 Base Excess 2 O2 Saturation 97 O2 % 5.0 ABG pCO2 39.9 ABG pO2 86 Maria R Test Positive O2 Delivery Device Cannula Vent Mode Not entered Imaging Radiology Impression Chest X-Ray 11/15/24 10:27 IMPRESSION: No active cardiopulmonary disease. Parenchymal scarring and/or subsegmental atelectasis, left lower lobe. Reading Location: [facility] Chest CTA 11/15/24 11:35 IMPRESSION: No signs of pulmonary embolism. Centrilobular emphysematous changes. Ground-glass opacities are scattered throughout the lower lobes. Can not exclude mild inflammation. Bronchiectatic changes along with bronchial thickening primarily in the lower lobes. Reading Location: [facility] Charges/Coding Visit Charges Inpatient E&M: 23761 Init Hosp L3 11/16/24 1126 <Electronically signed by Harsh Manzo DO> Cosigner Signature (if applicable): CC: Dr. Fernandez Baig DO~ Signed [facility] Work Phone: [phone] [facility] Medical Records Department [address] [place] [address] Consultation - Project Asst 11/16/24 0849 MR#: [id number] Acct: [id number] Name: NANETTE MONROY Rep #:[id number] : 1945 79 From: Harsh Manzo DO PCP: Dr. Fernandez Baig DO Status:ADM IN Location: [place] [address] Assessment & Plan Assessment/Plan (1) COPD exacerbation: PLAN: Plan RECOMMENDATIONS: 1. Supplemental oxygen to maintain saturations at or above 90%. 2. Obtain echocardiogram. 3. Continue empiric antibiotics, pending culture results. 4. Continue bronchodilators and steroids. 5. Continue appropriate DVT prophylaxis. 6. Encourage incentive spirometer use and mobilize patient as tolerated. IMPRESSIONS: 1. Shortness of breath/chronic hypoxemic respiratory failure/end-stage COPD with exacerbation The patient is followed in the pulmonary medicine clinic due to a history of end-stage COPD on maximum outpatient therapy along with noninvasive ventilator and baseline oxygen requirement of 6 L/min.In addition, the patient is maintained on low-dose prednisone and azithromycin on Tuesday, Tuesday, Tuesday. He continues to experience dyspnea, despite negative acute pulmonary workup. The findings noted on CT imaging of the chest all appear chronic. The patient is on his baseline oxygen requirement of 6 L/min. At this time, we will plan tocontinue antibiotics, pending sputum culture results. Hewill be continued on scheduled bronchodilators and steroids. BNP and procalcitonin were unremarkable. Echocardiogram will be obtained to evaluate for any cardiac dysfunction. Otherwise, given the end-stage nature of his lung disease, the patient would be appropriate for referral to palliative care for ongoing assistance with symptom management. 2. History of coronary artery disease status post CABG/hypertension/chronic tobacco dependency in remission Complicates care, management, recovery and prognosis. Continue supportive care as noted above. This note was generated with Boni dictation software. It may contain incorrectwords, spelling, and punctuation that were not noted in checking the note beforesigning. HPI Consult Data Date of Consult: 11/16/24 HPI Narrative Reason for Consultation: COPD exacerbation HPI Narrative: The patient is an 79-year-old male, with a history as outlined below, who presented to the emergency department on November 15 with worsening dyspnea. The patient has a known history of end-stage COPD along with chronic hypoxemic respiratory failure, with a baseline oxygen requirement of 5 to 6 L/min. In addition, he is prescribed a noninvasive ventilator at his baseline and is maintained on a triple therapy nebulizer regimen. He is also maintained on azithromycin 3 times weekly and chronic low-dose prednisone therapy. The patient is followed in the pulmonary medicine clinic on an outpatient basis,with his last appointment having occurred in September 2024. On presentation to the emergency department, the patient was documented to be afebrile hemodynamically stable. Laboratory evaluation was notable for a white blood cell count of 20,000. ABG was notable for a pH of 7.43 with a pCO2 of 40 and pO2 of 86. Chemistry profile was unremarkable. COVID, influenza and RSV PCR's were negative. Respiratory viral panel was negative. Strep and urine Legionella antigens were negative. CTA showed no evidence for pulmonary embolism, but did demonstrate bilateral emphysematous changes along with lower lobe bronchiectasis and stable pulmonary nodules. The patientwas subsequently placed on antimicrobials, bronchodilators and steroids. He was admitted to the hospital for further management. 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 of other ocular prosthetic devices, implants and grafts, initial encounter Nocturnal hypoxia Tobacco dependence in remission Chronic hypoxemic respiratory failure COPD (chronic obstructive pulmonary disease) Home Medications ?Medication ?Instructions ?Recorded ?Last Taken ?Type aspirin 81 mg tablet,delayed 81 mg PO DAILY@1999 [facility] 12/24/19 11/14/24 History release nitroglycerin 0.4 mg sublingual 0.4 mg sublingual Q5-1 5M PRN chest 03/22/22 Unknown Rx tablet pain #25 tabs Handicap Placcard #1 ea 07/29/22 Unknown Rx albuterol sulfate 2.5 mg/3 mL 2.5 mg (3 mL) inhalation Q4H #180 08/14/24 11/14/24 Rx (0.083 %) solution for nebulization mL albuterol sulfate 90 mcg/actuation 2 puff inhalation Q 4H PRN 08/14/24 Unknown Rx aerosol inhaler shortness of breath or wheez ing #8.5 grams arformoterol 15 mcg/2 mL solution 15 mcg (2 mL) inhala tion BID #120 08/14/24 11/14/24 Rx for nebulization (Brovana) mL budesonide 0.5 mg/2 mL suspension 0.5 mg (2 mL) inhala tion BID #120 08/14/24 11/14/24 Rx for nebulization mL guaifenesin 1,200 mg tablet, 1,200 mg PO Q12H #60 tabs 08/14/24 11/14/24 Rx extended release 12 hr metoprolol succinate 25 mg 12.5 mg (1/2 x 25 mg) PO DA RENÉ #45 08/20/24 11/14/24 Rx tablet,extended release 24 hr TABLETS rosuvastatin 20 mg tablet 20 mg PO DAILY #90 tabs 08/1111/14/24 Rx ipratropium 0.5 mg-albuterol 3 mg 3 ml inhalation ALMAZ Y 09/11/24 11/14/24 History (2.5 mg base)/3 mL nebulization soln isosorbide mononitrate 30 mg 30 mg PO DAILY #90 tabs 0 09/11/24 11/14/24 Rx tablet,extended release 24 hr losartan 25 mg tablet 25 mg PO BID #180 tabs 09/1111/14/24 Rx prednisone 10 mg tablet 10 mg PO DAILY 11/15/24 0502/01 History Allergy/AdvReac Type Severity Reaction Status Date / Time tiotropium (From Spiriva AdvReac Severe Decreased Verified 11/15/24 10:01 with HandiHaler) Urination cyanocobalamin (vitamin B12) AdvReac Other Verified 11/15/24 10:01 Family History Sister CAD (coronary artery disease) Hx of CABG Sister Breast cancer Brother COPD (chronic obstructive pulmonary disease) Surgical History Presence of aortocoronary bypass graft (~08/01/01) History of cochlear implant Postsurgical percutaneous transluminal coronary angioplasty (PTCA) status (~1989) Aortocoronary bypass status (~08/01/01) History of vasectomy Social History Smoking Status: Former smoker how long ago did patient quit smokin + years ago second hand exposure: No alcohol intake: current alcohol intake frequency: a few times a week substance use type: does not use caffeine: Yes ROS ROS Narrative 10 systems were reviewed with pertinent positives as noted in the HPI above. Physical Exam Const alert, oriented x3 and no apparent distress General Appearance: cooperative HEENT normocephalic, head/scalp atraumatic and moist oral mucous membranes Eyes PERRL, EOMs intact bilaterally and conjunctivae normal Neck supple General: trachea midline Chest inspection of chest normal Resp Effort and Inspection: able to speak in complete sentences and tachypneic Auscultation: diminished lung sounds; Negative for rales, rhonchi or wheezes Cardio regular rate and regular rhythm GI normal to inspection, nondistended, normoactive bowel sounds Extremity no clubbing, cyanosis or edema Skin no rashes or lesions noted Neuro CN's II-XII intact bilaterally, moves all extremities and no focal motor deficits Psych cooperative and affect normal Lab / Micro Data 11/16/24 04:27 11/16/24 04:27 Labs: Laboratory Results - last 24 hr 11/15/24 10:13: WBC 20.1 H, RBC 4.43 L, Hgb 14.0, Hct 42.3, MCV 95.5 H, MCH 31.6, MCHC 33.1, RDW Std Deviation 47.7 H, RDW Coeff of Crystal 13.5, Plt Count 221,MPV 9.4, Immature Gran % (Auto) 0.400, Neut% (Auto) 86.4 H, Lymph % (Auto) 6.7 L, Burt % (Auto) 6.1, Eos % (Auto) 0.2, Baso % (Auto) 0.2, Absolute Neuts (auto)17.3 H, Absolute Lymphs (auto) 1.35, Nucleated RBC % 0, D-Dimer Quant (PE/DVT) 0.90H*, Sodium 139, Potassium 4.3, Chloride 102, Carbon Dioxide 24.4, Anion Gap12, BUN 12, Creatinine 0.87, Est GFR (MDRD) Non-Af 87, BUN/Creatinine Ratio 14.0, Glucose 116 H, Calcium 8.8, Magnesium 2.1,Troponin T High Sens 25 H 11/15/24 12:25: Troponin T Hi Sens 2 Hr 21 11/15/24 14:30: Troponin T Hi Sens 4Hr 20 11/16/24 04:27: WBC 15.3 H, RBC 4.38 L, Hgb 13.8, Hct 42.5, MCV 97.0 H, MCH 31.5, MCHC 32.5, RDW Std Deviation 48.3 H, RDW Coeff of Crystal 13.4, Plt Count 242,MPV 9.2, Immature Gran % (Auto) 0.700, Neut% (Auto) 94.1 H, Lymph % (Auto) 4.2 L, Burt % (Auto) 0.9, Eos % (Auto) 0.0, Baso % (Auto) 0.1, Absolute Neuts (auto)14.4 H, Absolute Lymphs (auto) 0.64 L, Nucleated RBC % 0, Sodium 139, Potassium 4.3, Chloride 105, Carbon Dioxide 18.6 L, Anion Gap 15, BUN 17, Creatinine 0.97,Estim Creat Clear Calc 60.74, Est GFR (MDRD) Non-Af 79, BUN/Creatinine Ratio 17.4, Glucose 114 H, Calcium 8.7 Micro: Microbiology 11/15/24 16:40 Mucosa - Nasopharyngeal Respiratory Panel (PCR) - Final 11/15/24 16:40 Mucosa - Nasopharyngeal Coronavirus COVID-19 PCR - Final 11/15/24 15:30 Urine, Clean Catch Legionella Antigen - Final 11/15/24 15:30 Urine, Clean Catch Streptococcus pneumoniae Antigen (M - Final ABG Data ABG results: ABG 11/15/24 14:04 Specimen Type ART Sample Site R Radial pH 7.43 Bicarbonate Actual 26.6 H Total CO2 28 Base Excess 2 O2 Saturation 97 O2 % 5.0 ABG pCO2 39.9 ABG pO2 86 Marai R Test Positive O2 Delivery Device Cannula Vent Mode Not entered Imaging Radiology Impression Chest X-Ray 11/15/24 10:27 IMPRESSION: No active cardiopulmonary disease. Parenchymal scarring and/or subsegmental atelectasis, left lower lobe. Reading Location: [facility] Chest CTA 11/15/24 11:35 IMPRESSION: No signs of pulmonary embolism. Centrilobular emphysematous changes. Ground-glass opacities are scattered throughout the lower lobes. Can not exclude mild inflammation. Bronchiectatic changes along with bronchial thickening primarily in the lower lobes. Reading Location: [facility] Charges/Coding Visit Charges Inpatient E&M: 90550 Init Hosp L3 11/16/24 1126 Cosigner Signature (if applicable): CC: Dr. Fernandez Baig, DO~ Signed [facility]05-08-2025 History and physical note Author Rohan Henao [facility] Note Date/Time November 15, 2024 2:58pm [facility] Medical Records Department [address] [place] [id number] H&P Exam - Hospitalist 11/15/24 1345 MR#: [id number] Acct: [id number] Name: NANETTE MONROY Rep #:[id number] : 1945 79 From: Rohan Cortez PCP: Dr. Fernandez Baig, Status:ADM IN Location: [facility] [place] FX639-2 HPI - General General Date of Admission: 11/15/24 Date of Service: 11/15/24 Chief Complaint: SOB worsening for 2 months. 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 Patient was on 4 L of home oxygen at rest but for last 2 months he has been using 6 L at rest. Patient was seen in the pulmonary office 2 months ago and neo prednisone 10 mg and antibiotic 3 times a week but is still did not improve. In ED, patient is tachypneic 30 to 34/min and on 5 L oxygen. He only had IV Solu-Medrol 125 mg in ED. Chest CTA was done and is discussed assessment plan. 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083 %) solution for nebulization mL albuterol sulfate 90 mcg/actuation 2 puff inhalation Q 4H PRN 08/14/24 Unknown Rx aerosol inhaler shortness of breath or wheez ing #8.5 grams arformoterol 15 mcg/2 mL solution 15 mcg (2 mL) inhala tion BID #120 08/14/24 11/14/24 Rx for nebulization (Brovana) mL budesonide 0.5 mg/2 mL suspension 0.5 mg (2 mL) inhala tion BID #120 08/14/24 11/14/24 Rx for nebulization mL guaifenesin 1,200 mg tablet, 1,200 mg PO Q12H #60 tabs 08/14/24 11/14/24 Rx extended release 12 hr metoprolol succinate 25 mg 12.5 mg (1/2 x 25 mg) PO DA RENÉ #45 08/20/24 11/14/24 Rx tablet,extended release 24 hr TABLETS rosuvastatin 20 mg tablet 20 mg PO DAILY #90 tabs 08/1111/14/24 Rx ipratropium 0.5 mg-albuterol 3 mg 3 ml inhalation ALMAZ Y 09/11/24 11/14/24 History (2.5 mg base)/3 mL nebulization soln isosorbide mononitrate 30 mg 30 mg PO DAILY #90 tabs 0 09/11/24 11/14/24 Rx tablet,extended release 24 hr losartan 25 mg tablet 25 mg PO BID #180 tabs 09/1111/14/24 Rx prednisone 10 mg tablet 10 mg PO DAILY 11/15/2402/01 History Allergy/AdvReac Type Severity Reaction Status Date / Time tiotropium (From Spiriva AdvReac Severe Decreased Verified 11/15/24 10:01 with HandiHaler) Urination cyanocobalamin (vitamin B12) AdvReac Other Verified 11/15/24 10:01 Family History Sister CAD (coronary artery disease) Hx of CABG Sister Breast cancer Brother COPD (chronic obstructive pulmonary disease) Surgical History Presence of aortocoronary bypass graft (~08/01/01) History of cochlear implant Postsurgical percutaneous transluminal coronary angioplasty (PTCA) status (~1989) Aortocoronary bypass status (~08/01/01) History of vasectomy Social History Smoking Status: Former smoker how long ago did patient quit smokin + years ago second hand exposure: No alcohol intake: current alcohol intake frequency: a few times a week substance use type: does not use caffeine: Yes ROS ROS Narrative Constitutional: Reports fatigue and weakness. No fever. No dyspnea at rest. HEENT: Right ear cochlear implant. Left hearing aid. Reports systems reviewed and no addt'l complaints, except as documented Respiratory/Chest: Hide described in HPI. CVS: Denies chest pressure. Intermittent pleuritic chest pain on coughing/dyspnea. CAD s/p three-vessel CABG Gastrointestinal: Denies coffee ground emesis, hematemesis or vomiting Genitourinary: Denies burning urination or new urinary tract symptoms Musculoskeletal: Denies acute joint pain or limited range of motion. No acute injury Neurologic: Denies seizure-like symptoms. skin: No ulcer. No rash Endocrinology: Reports systems reviewed and no addt'l complaints, except as documented Hematologic/Lymphatic: Reports systems reviewed and no addt'l complaints, exceptas documented Rest 14 ROS are negative except as mentioned in HPI Vital Signs Vital Signs Vital Signs: 11/15/24 10:00 11/15/24 10:00 11/15/24 10:04 Temperature 98 F 98.1 F Temperature Source Temporal Oral Pulse Rate 86 80 Respiratory Rate 32 H 34 H Respiratory Effort Respiratory Depth Respiratory Pattern Blood Pressure 148/77 H 155/82 H Blood Pressure Mean 100 106 Pulse Ox 91 93 88 Oxygen Delivery Method Nasal Cannula Nasal Cannula Nasal Cannula Oxygen Flow Rate (L/min) 5 5 5 11/15/24 10:04 11/15/24 10:27 11/15/24 11:04 Temperature 98.7 F Temperature Source Oral Pulse Rate 74 Respiratory Rate 16 Respiratory Effort Short of Breath Respiratory Depth Shallow Respiratory Pattern Tachypnea Blood Pressure 134/76 H Blood Pressure Mean 95 Pulse Ox 97 Oxygen Delivery Method Nasal Cannula Nasal Cannula Room Air Oxygen Flow Rate (L/min) 5 5 11/15/24 12:00 11/15/24 12:00 11/15/24 13:00 Temperature 98.7 F 98.7 F Temperature Source Oral Oral Pulse Rate 70 75 Respiratory Rate 70 H 20 H 23 H Respiratory Effort Respiratory Depth Respiratory Pattern Blood Pressure 123/69 H 123/69 H 130/71 H Blood Pressure Mean 87 87 90 Pulse Ox 94 93 Oxygen Delivery Method Nasal Cannula Nasal Cannula Oxygen Flow Rate (L/min) 5 5 11/15/24 13:00 11/15/24 13:05 Temperature 98.7 F Temperature Source Pulse Rate 83 Respiratory Rate 21 H Respiratory Effort Respiratory Depth Respiratory Pattern Blood Pressure 130/71 H 130/71 H Blood Pressure Mean 90 90 Pulse Ox 93 Oxygen Delivery Method Oxygen Flow Rate (L/min) Physical Exam Narrative General: Alert, Oriented x3, Cooperative HEENT moderate hearing loss on hearing aids.: Atraumatic, PERRLA, EOMI, Normocephalic. Oral: Oral mucosa dry. No Gingival or Mucosal Lesions/ Ulcerations Neck: Supple, No JVD, Negative Carotid Bruits Chest wall/Lungs: Air entry severely diminished in all lung montes. Bilateral expiratory rhonchi. Cardiovascular: Regular rate and rhythm, Normal S1,S2, systolic murmur. CABG Abdomen: Bowel Sounds Present, Soft, Non Tender, Non-Distended : No dysuria. No renal angle tenderness. No suprapubic tenderness. Extremities: No edema, Capillary Refill Less than 3 Seconds Skin: No rashes, No breakdown Musculoskeletal: No Tenderness to Palpation of Joints or Extremities. ROM intact. Neurological: Cranial nerves II-XII grossly intact, DTR 2+/4. No acute focal neurological deficit. Psych/Mental Status: Normal Affect, Appropriate. Results Lab / Micro Data 11/15/24 10:13 11/15/24 10:13 Labs: Laboratory Results - last 24 hr 11/15/24 10:13: WBC 20.1 H, RBC 4.43 L, Hgb 14.0, Hct 42.3, MCV 95.5 H, MCH 31.6, MCHC 33.1, RDW Std Deviation 47.7 H, RDW Coeff of Crystal 13.5, Plt Count 221,MPV 9.4, Immature Gran % (Auto) 0.400, Neut % (Auto) 86.4 H, Lymph % (Auto) 6.7 L, Burt % (Auto) 6.1, Eos % (Auto) 0.2, Baso % (Auto) 0.2, Absolute Neuts (auto)17.3 H, Absolute Lymphs (auto) 1.35, Nucleated RBC % 0, D-Dimer Quant (PE/DVT) 0.90 H*, Sodium 139, Potassium 4.3, Chloride 102, Carbon Dioxide 24.4, Anion Gap12, BUN 12, Creatinine 0.87, Est GFR (MDRD) Non-Af 87, BUN/Creatinine Ratio 14.0, Glucose 116 H, Calcium 8.8, Troponin T High Sens 25 H 11/15/24 12:25: Troponin T Hi Sens 2 Hr 21 Imaging Radiology Impression Chest X-Ray 11/15/24 10:27 IMPRESSION: No active cardiopulmonary disease. Parenchymal scarring and/or subsegmental atelectasis, left lower lobe. Reading Location: [facility] Chest CTA 11/15/24 11:35 IMPRESSION: No signs of pulmonary embolism. Centrilobular emphysematous changes. Ground-glass opacities are scattered throughout the lower lobes. Can not exclude mild inflammation. Bronchiectatic changes along with bronchial thickening primarily in the lower lobes. Reading Location: [facility] Assessment & Plan Assessment/Plan (1) Acute on chronic hypoxic respiratory failure: (2) COPD exacerbation: PLAN: Plan This 79-year-old gentleman with end-stage COPD is being admitted for COPD exacerbation 1. Acute on chronic hypoxic respiratory failure due to COPD exacerbation: Patient is being admitted in the PCU. Chest CTA shows no signs of pulmonary embolism but groundglass opacities scattered throughout the lower lobes. Bronchiectatic changes along with bronchial thickening primarily in the lower lobes. With bronchiectasis changes lower lobes, started on IV Zosyn and Zithromax. Project Asst consult. Pneumonia workup ordered. ABG 7.4 on 5 L of oxygen. Start on Airvo as patient is respiratory muscle fatigued and mild going ventilatory failure. Patient is being managed on scheduled bronchodilator, IV Solu-Medrol, Mucinex?DM, Tessalon Perles , incentive spirometry and Pep. 2. Bronchiectasis and end-stage COPD: Chest x-ray and CT images reviewed. 3. CAD status post CABG: Patient home medications continued. On baby aspirin, Imdur, losartan, metoprolol and rosuvastatin. 4. Hypertension and dyslipidemia: As mentioned above. Blood pressure in normalrange. 5. Chronic tobacco use, patient quit about a year ago 6. DVT prophylaxis high risk: Enoxaparin 40 mL subcu daily. Living will/advanced directive/end of life care: Patient does not living will oradvanced directive. His girlfriend who lives for many years is next to kin and present to ED. After discussion of benefits/risks procedures involved with full code, DNR CC arrest and DNR CC, the patient opted for DNR CC arrest with nointubation Patient doesn't want artificial life support including intubation, tube feed, ventilator and/chest compression, and DC shock if needed. Patient is unclear about central line/PICC line or vasopressor if needed. Total time spent in [id number] encounter in discussion of advanced directive 17 minutes. Laboratory Results 11/15/24 10:13: WBC 20.1 H, RBC 4.43 L, Hgb 14.0, Hct 42.3, MCV 95.5 H, MCH 31.6, MCHC 33.1, RDW Std Deviation 47.7 H, RDW Coeff of Crystal 13.5, Plt Count 221,MPV 9.4, Immature Gran % (Auto) 0.400, Neut % (Auto) 86.4 H, Lymph % (Auto) 6.7 L, Burt % (Auto) 6.1, Eos % (Auto) 0.2, Baso % (Auto) 0.2, Absolute Neuts (auto)17.3 H, Absolute Lymphs (auto) 1.35, Nucleated RBC % 0, D-Dimer Quant (PE/DVT) 0.90 H*, Sodium 139, Potassium 4.3, Chloride 102, Carbon Dioxide 24.4, Anion Gap12, BUN 12, Creatinine 0.87, Est GFR (MDRD) Non-Af 87, BUN/Creatinine Ratio 14.0, Glucose 116 H, Calcium 8.8, Magnesium Pending, Troponin T High Sens 25 H 11/15/24 12:25: Troponin T Hi Sens 2 Hr 21 11/15/24 14:04: Specimen Type ART, Sample Site R Radial, pH 7.43, Bicarbonate Actual 26.6 H, Total CO2 28, Base Excess 2, O2 Saturation 97, O2 % 5.0, ABG xZB689.9, ABG pO2 86, Maria R Test Positive, O2 Delivery Device Cannula, Vent Mode Notentered 11/15/24 14:30: Troponin T Hi Sens 4Hr Pending Clinical Impression(s) from Imaging Studies Chest X-Ray 11/15/24 10:27 IMPRESSION: No active cardiopulmonary disease. Parenchymal scarring and/or subsegmental atelectasis, left lower lobe. Reading Location: [facility] Chest CTA 11/15/24 11:35 IMPRESSION: No signs of pulmonary embolism. Centrilobular emphysematous changes. Ground-glass opacities are scattered throughout the lower lobes. Can not exclude mild inflammation. Bronchiectatic changes along with bronchial thickening primarily in the lower lobes. Reading Location: [facility] Charges/Coding Visit Charges Inpatient E&M: 21438 Init Hosp L3 Procedures Hospitalists Procedures: 28323 Advncd Care Plan 30 Min 11/15/24 9388 <Electronically signed by Rohan Henao MD> Cosigner Signature (if applicable): CC: Dr. Rohan Henao MD; Dr. Fernandez Baig DO~ Signed [facility] Work Phone: [phone] 691-873205-08-2025 Discharge summary Author Beau Julissa [facility] Note Date/Time November 15, 2024 2:08pm [facility] Medical Records Department [address] [place] [address] Emergency Department Summary 11/15/24 MR#: [id number] Acct: [id number] Name: NANETTE MONROY Rep #:[id number] : 1945 79 From: Beau Lane PCP: Dr. Fernandez Baig, DO Status:REG ER Location: ED HPI History of Present Illness Chief Complaint: Shortness of Breath Informant: patient and spouse/S.O. Narrative Narrative: Sent to ED after discussion with pulmonary office. History of COPD chronic oxygenation 4 L at rest 6 L with exertion. Remote tobacco history. 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 He states had cough shortness of breath 2 months ago seen in pulmonary office was started on prednisone daily at 10 mg. He states heis on antibiotics 3 days a week Tuesday with a Fridays. Each week symptoms have worsened. Wheezing at home. No diabetes. No fever or chills. Feels chest heaviness. Three-vessel CABG 2001 baby aspirin daily. Denies vomiting diarrheadenies urinary symptoms. He had no recent travel or surgeries prior symptoms starting. No history of PE or DVT. PE Risk Factors: Negative for Cancer, OCP + Smoking + > 35, Prior DVT or PE, Recent immobilization, Recent surgery or Recent travel Prior similar symptoms: Yes PFSH PFSH Medical History Old myocardial infarction Claudication, intermittent Premature ventricular contraction Hyperlipidemia Ischemic cardiomyopathy Atherosclerotic heart disease of [place] coronary artery without angina pectoris Displacement of other ocular prosthetic devices, implants and grafts, initial encounter Nocturnal hypoxia Tobacco dependence in remission Chronic hypoxemic respiratory failure COPD (chronic obstructive pulmonary disease) Home Medications ?Medication ?Instructions ?Recorded ?Last Taken ?Type aspirin 81 mg tablet,delayed 81 mg PO DAILY@1999 [facility] 12/24/19 11/14/24 History release nitroglycerin 0.4 mg sublingual 0.4 mg sublingual Q5-1 5M PRN chest 03/22/22 Unknown Rx tablet pain #25 tabs Handicap Placcard #1 ea 07/29/22 Unknown Rx albuterol sulfate 2.5 mg/3 mL 2.5 mg (3 mL) inhalation Q4H #180 08/14/24 11/14/24 Rx (0.083 %) solution for nebulization mL albuterol sulfate 90 mcg/actuation 2 puff inhalation Q 4H PRN 08/14/24 Unknown Rx aerosol inhaler shortness of breath or wheez ing #8.5 grams arformoterol 15 mcg/2 mL solution 15 mcg (2 mL) inhala tion BID #120 08/14/24 11/14/24 Rx for nebulization (Brovana) mL budesonide 0.5 mg/2 mL suspension 0.5 mg (2 mL) inhala tion BID #120 08/14/24 11/14/24 Rx for nebulization mL guaifenesin 1,200 mg tablet, 1,200 mg PO Q12H #60 tabs 08/14/24 11/14/24 Rx extended release 12 hr metoprolol succinate 25 mg 12.5 mg (1/2 x 25 mg) PO DA RENÉ #45 08/20/24 11/14/24 Rx tablet,extended release 24 hr TABLETS rosuvastatin 20 mg tablet 20 mg PO DAILY #90 tabs 08/1111/14/24 Rx ipratropium 0.5 mg-albuterol 3 mg 3 ml inhalation ALMAZ Y 09/11/24 11/14/24 History (2.5 mg base)/3 mL nebulization soln isosorbide mononitrate 30 mg 30 mg PO DAILY #90 tabs 0 09/11/24 11/14/24 Rx tablet,extended release 24 hr losartan 25 mg tablet 25 mg PO BID #180 tabs 09/1111/14/24 Rx prednisone 10 mg tablet 10 mg PO DAILY 11/15/24 0502/01 History Allergy/AdvReac Type Severity Reaction Status Date / Time tiotropium (From Spiriva AdvReac Severe Decreased Verified 11/15/24 10:01 with HandiHaler) Urination cyanocobalamin (vitamin B12) AdvReac Other Verified 11/15/24 10:01 Family History Sister CAD (coronary artery disease) Hx of CABG Sister Breast cancer Brother COPD (chronic obstructive pulmonary disease) Surgical History Presence of aortocoronary bypass graft (~08/01/01) History of cochlear implant Postsurgical percutaneous transluminal coronary angioplasty (PTCA) status (~1989) Aortocoronary bypass status (~08/01/01) History of vasectomy Social History Smoking Status: Former smoker how long ago did patient quit smokin + years ago second hand exposure: No alcohol intake: current alcohol intake frequency: a few times a week substance use type: does not use caffeine: Yes ROS ROS ED Constitutional Constitutional ED: Denies chills, fever(s) or sweats ENT ENT ED: Denies sore throat Cardiovascular Cardiovascular: Reports chest pain; Denies leg edema, palpitations or racing heartbeat Respiratory/Chest Respiratory/Chest: Reports cough, dyspnea and dyspnea on exertion Gastrointestinal Gastrointestinal: Denies abdominal pain, diarrhea, nausea or vomiting Genitourinary Genitourinary ED: Denies dysuria, hematuria or urinary frequency Musculoskeletal Musculoskeletal: Denies back pain, extremity pain or neck pain Integumentary Denies rash or wounds Neurologic Neurologic: Denies headache(s), paresthesias or weakness EXAM Physical Exam Const Vital Signs: 11/15/24 10:00 11/15/24 10:00 11/15/24 10:04 Temperature 98 F 98.1 F Temperature Source Temporal Oral Pulse Rate 86 80 Respiratory Rate 32 H 34 H Respiratory Effort Respiratory Depth Respiratory Pattern Blood Pressure 148/77 H 155/82 H Blood Pressure Mean 100 106 Pulse Ox 91 93 88 Oxygen Delivery Method Nasal Cannula Nasal Cannula Nasal Cannula Oxygen Flow Rate (L/min) 5 5 5 11/15/24 10:04 11/15/24 10:27 11/15/24 11:04 Temperature 98.7 F Temperature Source Oral Pulse Rate 74 Respiratory Rate 16 Respiratory Effort Short of Breath Respiratory Depth Shallow Respiratory Pattern Tachypnea Blood Pressure 134/76 H Blood Pressure Mean 95 Pulse Ox 97 Oxygen Delivery Method Nasal Cannula Nasal Cannula Room Air Oxygen Flow Rate (L/min) 5 5 11/15/24 12:00 11/15/24 12:00 11/15/24 13:00 Temperature 98.7 F 98.7 F Temperature Source Oral Oral Pulse Rate 70 75 Respiratory Rate 70 H 20 H 23 H Respiratory Effort Respiratory Depth Respiratory Pattern Blood Pressure 123/69 H 123/69 H 130/71 H Blood Pressure Mean 87 87 90 Pulse Ox 94 93 Oxygen Delivery Method Nasal Cannula Nasal Cannula Oxygen Flow Rate (L/min) 5 5 11/15/24 13:00 11/15/24 13:05 Temperature 98.7 F Temperature Source Pulse Rate 83 Respiratory Rate 21 H Respiratory Effort Respiratory Depth Respiratory Pattern Blood Pressure 130/71 H 130/71 H Blood Pressure Mean 90 90 Pulse Ox 93 Oxygen Delivery Method Oxygen Flow Rate (L/min) Positive well nourished and well developed Constitutional Narrative: 5 L nasal cannula, no respiratory distress General Appearance ED: well developed and NAD HEENT Reports moist mucous membranes normocephalic and atraumatic Eyes General Eye ED: Yes normal appearance of both eyes Neck full ROM Chest Wall Chest: Negative for tenderness Resp normal respiratory effort and normal air movement Effort and Inspection: symmetric chest movement; Negative for respiratory distress Cardio regular rate, regular rhythm and no murmurs Peripheral Pulses: pulses 2+ throughout GI normal to inspection, nondistended, normoactive bowel sounds and non-tender Palpation: Negative for guarding or rebound tenderness present Extremity normal to inspection General Extremety ED: Negative for edema or tenderness General Extremity: Negative for edema Neuro oriented x3 and no sensory deficits noted Sensorium / Orientation: awake and alert Skin no rashes or lesions noted and no wounds MDM MDM MDM Narrative Medical decision making narrative: Interventions / MDM: Differential diagnosis: COPD exacerbation, failed outpatient treatment. Diagnosis considered but do not suspect: Pneumonia, pulmonary embolism however CT negative. My EKG interpretation: Sinus rate of 77, no ST changes. PVC noted. Incomplete left bundle branch block. Similar findings from December 2019. Imaging independently reviewed and interpreted by myself: 2 view chest x-ray: Left lower lobe atelectasis. No infiltrates. CT angiogram chest: Emphysema changes. No PE. Also read by radiology. External documents reviewed: N/A Test considered but not ordered:N/A ED course: Patient currently 5 L nasal cannula no respiratory distress waxing waning hypoxia down to 88% however go up into the 90s. 2 months of symptoms progressed. No PE risk factors. No active wheezing. EKG chronic changes. Will check labs x-ray Solu-Medrol ordered. D-dimer for further evaluation. Will likely require hospitalization as he is failing outpatient treatment. Leukocytosis of 20, has been on chronic steroids for couple months of 10 mg. Chest x-ray negative. D-dimer elevated subsequent CT chest negative for PE or infiltrates. Inflammatory process noted. Creatinine 0.7. Troponin 25 down to 21. Patient on 5 L oxygen. Baseline 4 to 6 L. Failed outpatient therapy. Discussed with hospitalist Dr. Henao for admission. Re-evaluation: stable Disposition discussed with patient/family/significant other: Patient and spouse Case discussed with consulting clinician: Hospitalist This note was generated with Boni dictation software. It may contain incorrectwords, spelling, and punctuation that were not noted in checking the note beforesigning. Lab Data Attestation: I reviewed the patient's lab results. Labs: Laboratory Results - last 24 hr 11/15/24 11/15/24 10:13 12:25 WBC 20.1 H RBC 4.43 L Hgb 14.0 Hct 42.3 MCV 95.5 H MCH 31.6 MCHC 33.1 RDW Std Deviation 47.7 H RDW Coeff of Crystal 13.5 Plt Count 221 MPV 9.4 Immature Gran % (Auto) 0.400 Neut % (Auto) 86.4 H Lymph % (Auto) 6.7 L Burt % (Auto) 6.1 Eos % (Auto) 0.2 Baso % (Auto) 0.2 Absolute Neuts (auto) 17.3 H Absolute Lymphs (auto) 1.35 Nucleated RBC % 0 D-Dimer Quant (PE/DVT) 0.90 H* Sodium 139 Potassium 4.3 Chloride 102 Carbon Dioxide 24.4 Anion Gap 12 BUN 12 Creatinine 0.87 Est GFR (MDRD) Non-Af 87 BUN/Creatinine Ratio 14.0 Glucose 116 H Calcium 8.8 Troponin T High Sens 25 H Troponin T Hi Sens 2 Hr 21 Radiography Diagnostic Testing: Clinical Impression(s) from Imaging Studies Chest X-Ray 11/15/24 10:27 IMPRESSION: No active cardiopulmonary disease. Parenchymal scarring and/or subsegmental atelectasis, left lower lobe. Reading Location: [facility] Chest CTA 11/15/24 11:35 IMPRESSION: No signs of pulmonary embolism. Centrilobular emphysematous changes. Ground-glass opacities are scattered throughout the lower lobes. Can not exclude mild inflammation. Bronchiectatic changes along with bronchial thickening primarily in the lower lobes. Reading Location: [facility] Discharge Plan Triage Chief Complaint: Shortness of Breath ED Provider: Beau Costa Dx/Rx/DC Orders Prescriptions: No Action nitroglycerin 0.4 mg tablet, sublingual 0.4 mg SUBLINGUAL Q5-15M PRN (Reason: chest pain) Qty: 25 3RF Rx Instructions: until response; do not exceed 3 doses per event (DME) Handicap Placcard See Rx Instructions .ROUTE .MEDSUPPLY Qty: 1 0RF Rx Instructions: Time Duration: 99 months ipratropium-albuterol 0.5 mg-3 mg(2.5 mg base)/3 mL solution for nebulization 3 ml inhalation DAILY losartan 25 mg tablet 25 mg PO BID Qty: 180 4RF isosorbide mononitrate 30 mg tablet extended release 24 hr 30 mg PO DAILY Qty: 90 4RF Rx Instructions: Takes at 1200 albuterol sulfate 90 mcg/actuation HFA aerosol inhaler 2 puff INHALATION Q4H PRN (Reason: shortness of breath or wheezing) Qty: 8.5 3RF Rx Instructions: administer with spacer albuterol sulfate 2.5 mg /3 mL (0.083 %) solution for nebulization 2.5 mg INHALATION Q4H Qty: 180 6RF Brovana 15 mcg/2 mL solution for nebulization 15 mcg INHALATION BID Qty: 120 11RF budesonide 0.5 mg/2 mL suspension for nebulization 0.5 mg INHALATION BID Qty: 120 11RF guaifenesin 1,200 mg tablet extended release 12hr 1,200 mg PO Q12H Qty: 60 6RF aspirin 81 MG tablet 81 mg PO DAILY@2000 prednisone 10 mg tablet 10 mg PO DAILY metoprolol succinate 25 mg tablet extended release 24 hr 12.5 mg PO DAILY Qty: 45 4RF rosuvastatin 20 mg tablet 20 mg PO DAILY Qty: 90 4RF Primary Care Provider: Fernandez Baig Referrals: Fernandez Baig DO [Primary Care Provider] - Print Language: Tongan What to do if you have Problems For any increased pain, shortness of breath, bleeding, nausea or vomiting, chestpain, or any unexpected problems, contact your Primary Care Provider. Call [facility] ([phone]) or report to the closest Emergency Room. Call 911 if necessary. 11/15/24 1403 <Electronically signed by Beau Lane> Cosigner Signature (if applicable): CC: Dr. Fernandez Baig DO ~ Signed ADDENDUM by Dr. Beau Costa DO on 11/15/24 at 1408 ABG requested by hospitalist, pH 7.43, [id number], PaO2 85 11/15/24 1408<Electronically signed by Beau Lane> Cosigner Signature (if applicable): cc: Dr. Fernandez Baig DO ~* Signed [facility] Work Phone: [phone] History and physical note [facility] Medical Records Department [address] [place] [address] H&P Exam - Hospitalist 11/15/24 1345 MR#: [id number] Acct: [id number] Name: NANETTE MONROY Rep #:[id number] : 1945 79 From: Rohan Cortez PCP: Dr. Fernandez Baig DO Status:ADM IN [place]: [facility] [place] [id number] [facility] - General General Date of Admission: 11/15/24 Date of Service: 11/15/24 Chief Complaint: SOB worsening for 2 months. HPI Narrative NANETTE MONROY, is a 79 M with history of end-stage COPD on 6 L of home oxygen 31/01 came to ED withprogressive worsening of shortness of breath for 2 months along with worsening cough, greenish-yellowish sputum and dyspnea at rest. Patient was on 4 L of home oxygen at rest but for last 2 months hehas been using 6 L at rest. Patient was seen in the pulmonary office 2 months ago and neo prednisone 10 mg and antibiotic 3 times a week but is still did not improve. In ED, patient is tachypneic 30 to 34/min and on 5 L oxygen. He only had IV Solu-Medrol 125 mg in ED. Chest CTA was done and is discussed assessment plan. 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, implants and grafts, initial encounter Nocturnal hypoxia Tobacco dependence in remission Chronic hypoxemic respiratory failure COPD (chronic obstructive pulmonary disease) Home Medications ?Medication ?Instructions ?Recorded ?Last Taken ?Type aspirin 81 mg tablet,delayed 81 mg PO DAILY@1999 heart health 12/24/19 11/14/24 History release nitroglycerin 0.4 mg sublingual 0.4 mg sublingual Q5-1 5M PRN chest 03/22/22 Unknown Rx tablet pain #25 tabs Handicap Placcard #1 ea 07/29/22 Unknown Rx albuterol sulfate 2.5 mg/3 mL 2.5 mg (3 mL) inhalation Q4H #180 08/14/24 11/14/24 Rx (0.083 %) solution for nebulization mL albuterol sulfate 90 mcg/actuation 2 puff inhalation Q 4H PRN 08/14/24 Unknown Rx aerosol inhaler shortness of breath or wheez ing #8.5 grams arformoterol 15 mcg/2 mL solution 15 mcg (2 mL) inhala tion BID #120 08/14/24 11/14/24 Rx for nebulization (Brovana) mL budesonide 0.5 mg/2 mL suspension 0.5 mg (2 mL) inhala tion BID #120 08/14/24 11/14/24 Rx for nebulization mL guaifenesin 1,200 mg tablet, 1,200 mg PO Q12H #60 tabs 08/14/24 11/14/24 Rx extended release 12 hr metoprolol succinate 25 mg 12.5 mg (1/2 x 25 mg) PO DA RENÉ #45 08/20/24 11/14/24 Rx tablet,extended release 24 hr TABLETS rosuvastatin 20 mg tablet 20 mg PO DAILY #90 tabs 08/1111/14/24 Rx ipratropium 0.5 mg-albuterol 3 mg 3 ml inhalation ALMAZ Y 09/11/24 11/14/24 History (2.5 mg base)/3 mL nebulization soln isosorbide mononitrate 30 mg 30 mg PO DAILY #90 tabs 0 09/11/24 11/14/24 Rx tablet,extended release 24 hr losartan 25 mg tablet 25 mg PO BID #180 tabs 09/1111/14/24 Rx prednisone 10 mg tablet 10 mg PO DAILY 11/15/2402/01 History Allergy/AdvReac Type Severity Reaction Status Date / Time tiotropium (From Spiriva AdvReac Severe Decreased Verified 11/15/24 10:01 with HandiHaler) Urination cyanocobalamin (vitamin B12) AdvReac Other Verified 11/15/24 10:01 Family History Sister CAD (coronary artery disease) Hx of CABG Sister Breast cancer Brother COPD (chronic obstructive pulmonary disease) Surgical History Presence of aortocoronary bypass graft (~08/01/01) History of cochlear implant Postsurgical percutaneous transluminal coronary angioplasty (PTCA) status (~1989) Aortocoronary bypass status (~08/01/01) History of vasectomy Social History Smoking Status: Former smoker how long ago did patient quit smokin + years ago second hand exposure: No alcohol intake: current alcohol intake frequency: a few times a week substance use type: does not use caffeine: Yes ROS ROS Narrative Constitutional: Reports fatigue and weakness. No fever. No dyspnea at rest. HEENT: Right ear cochlear implant. Left hearing aid. Reports systems reviewed and no addt'l complaints, except as documented Respiratory/Chest: Hide described in HPI. CVS: Denies chest pressure. Intermittent pleuritic chest pain on coughing/dyspnea. CAD s/p three-vessel CABG Gastrointestinal: Denies coffee ground emesis, hematemesis or vomiting Genitourinary: Denies burning urination or new urinary tract symptoms Musculoskeletal: Denies acute joint pain or limited range of motion. No acute injury Neurologic: Denies seizure-like symptoms. skin: No ulcer. No rash Endocrinology: Reports systems reviewed and no addt'l complaints, except as documented Hematologic/Lymphatic: Reports systems reviewed and no addt'l complaints, exceptas documented Rest 14 ROS are negative except as mentioned in HPI Vital Signs Vital Signs Vital Signs: 11/15/24 10:00 11/15/24 10:00 11/15/24 10:04 Temperature 98 F 98.1 F Temperature Source Temporal Oral Pulse Rate 86 80 Respiratory Rate 32 H 34 H Respiratory Effort Respiratory Depth Respiratory Pattern Blood Pressure 148/77 H 155/82 H Blood Pressure Mean 100 106 Pulse Ox 91 93 88 Oxygen Delivery Method Nasal Cannula Nasal Cannula Nasal Cannula Oxygen Flow Rate (L/min) 5 5 5 11/15/24 10:04 11/15/24 10:27 11/15/24 11:04 Temperature 98.7 F Temperature Source Oral Pulse Rate 74 Respiratory Rate 16 Respiratory Effort Short of Breath Respiratory Depth Shallow Respiratory Pattern Tachypnea Blood Pressure 134/76 H Blood Pressure Mean 95 Pulse Ox 97 Oxygen Delivery Method Nasal Cannula Nasal Cannula Room Air Oxygen Flow Rate (L/min) 5 5 11/15/24 12:00 11/15/24 12:00 11/15/24 13:00 Temperature 98.7 F 98.7 F Temperature Source Oral Oral Pulse Rate 70 75 Respiratory Rate 70 H 20 H 23 H Respiratory Effort Respiratory Depth Respiratory Pattern Blood Pressure 123/69 H 123/69 H 130/71 H Blood Pressure Mean 87 87 90 Pulse Ox 94 93 Oxygen Delivery Method Nasal Cannula Nasal Cannula Oxygen Flow Rate (L/min) 5 5 11/15/24 13:00 11/15/24 13:05 Temperature 98.7 F Temperature Source Pulse Rate 83 Respiratory Rate 21 H Respiratory Effort Respiratory Depth Respiratory Pattern Blood Pressure 130/71 H 130/71 H Blood Pressure Mean 90 90 Pulse Ox 93 Oxygen Delivery Method Oxygen Flow Rate (L/min) Physical Exam Narrative General: Alert, Oriented x3, Cooperative HEENT moderate hearing loss on hearing aids.: Atraumatic, PERRLA, EOMI, Normocephalic. Oral: Oral mucosa dry. No Gingival or Mucosal Lesions/ Ulcerations Neck: Supple, No JVD, Negative Carotid Bruits Chest wall/Lungs: Air entry severely diminished in all lung montes. Bilateral expiratory rhonchi. Cardiovascular: Regular rate and rhythm, Normal S1,S2, systolic murmur. CABG Abdomen: Bowel Sounds Present, Soft, Non Tender, Non-Distended : No dysuria. No renal angle tenderness. No suprapubic tenderness. Extremities: No edema, Capillary Refill Less than 3 Seconds Skin: No rashes, No breakdown Musculoskeletal: No Tenderness to Palpation of Joints or Extremities. ROM intact. Neurological: Cranial nerves II-XII grossly intact, DTR 2+/4. No acute focal neurological deficit. Psych/Mental Status: Normal Affect, Appropriate. Results Lab / Micro Data 11/15/24 10:13 11/15/24 10:13 Labs: Laboratory Results - last 24 hr 11/15/24 10:13: WBC 20.1 H, RBC 4.43 L, Hgb 14.0, Hct 42.3, MCV 95.5 H, MCH 31.6, MCHC 33.1, RDW Std Deviation 47.7 H, RDW Coeff of Crystal 13.5, Plt Count 221,MPV 9.4, Immature Gran % (Auto) 0.400, Neut% (Auto) 86.4 H, Lymph % (Auto) 6.7 L, Burt % (Auto) 6.1, Eos % (Auto) 0.2, Baso % (Auto) 0.2, Absolute Neuts (auto)17.3 H, Absolute Lymphs (auto) 1.35, Nucleated RBC % 0, D-Dimer Quant (PE/DVT) 0.90H*, Sodium 139, Potassium 4.3, Chloride 102, Carbon Dioxide 24.4, Anion Gap12, BUN 12, Creatinine 0.87, Est GFR (MDRD) Non-Af 87, BUN/Creatinine Ratio 14.0, Glucose 116 H, Calcium 8.8, Troponin T High Sens 25 H 11/15/24 12:25: Troponin T Hi Sens 2 Hr 21 Imaging Radiology Impression Chest X-Ray 11/15/24 10:27 IMPRESSION: No active cardiopulmonary disease. Parenchymal scarring and/or subsegmental atelectasis, left lower lobe. Reading Location: [facility] Chest CTA 11/15/24 11:35 IMPRESSION: No signs of pulmonary embolism. Centrilobular emphysematous changes. Ground-glass opacities are scattered throughout the lower lobes. Can not exclude mild inflammation. Bronchiectatic changes along with bronchial thickening primarily in the lower lobes. Reading Location: [facility] Assessment & Plan Assessment/Plan (1) Acute on chronic hypoxic respiratory failure: (2) COPD exacerbation: PLAN: Plan This 79-year-old gentleman with end-stage COPD is being admitted for COPD exacerbation 1. Acute on chronic hypoxic respiratory failure due to COPD exacerbation: Patient is being admittedin the PCU. Chest CTA shows no signs of pulmonary embolism but groundglass opacities scattered throughout the lower lobes. Bronchiectatic changes along with bronchial thickening primarily in the lower lobes. With bronchiectasis changes lower lobes, started on IV Zosyn and Zithromax. Project Asst consult. Pneumonia workup ordered. ABG 7.4 on 5 L of oxygen. Start on Airvo as patient is respiratory muscle fatigued and mild going ventilatory failure. Patient is being managed on scheduled bronchodilator, IV Solu-Medrol, Mucinex?DM, Tessalon Perles , incentive spirometry and Pep. 2. Bronchiectasis and end-stage COPD: Chest x-ray and CT images reviewed. 3. CAD status post CABG: Patient home medications continued. On baby aspirin, Imdur, losartan, metoprolol and rosuvastatin. 4. Hypertension and dyslipidemia: As mentioned above. Blood pressure in normalrange. 5. Chronic tobacco use, patient quit about a year ago 6. DVT prophylaxis high risk: Enoxaparin 40 mL subcu daily. Living will/advanced directive/end of life care: Patient does not living will oradvanced directive.His girlfriend who lives for many years is next to kin and present to ED. After discussion of benefits/risks procedures involved with full code, DNR CC arrest and DNR CC, the patient opted for DNR CCarrest with nointubation Patient doesn't want artificial life support including intubation, tube feed, ventilator and/chest compression, and DC shock if needed. Patient is unclear about central line/PICC line or vasopressor if needed. Total time spent in [id number] encounter in discussion of advanced directive 17 minutes. Laboratory Results 11/15/24 10:13: WBC 20.1 H, RBC 4.43 L, Hgb 14.0, Hct 42.3, MCV 95.5 H, MCH 31.6, MCHC 33.1, RDW Std Deviation 47.7 H, RDW Coeff of Crystal 13.5, Plt Count 221,MPV 9.4, Immature Gran % (Auto) 0.400, Neut% (Auto) 86.4 H, Lymph % (Auto) 6.7 L, Burt % (Auto) 6.1, Eos % (Auto) 0.2, Baso % (Auto) 0.2, Absolute Neuts (auto)17.3 H, Absolute Lymphs (auto) 1.35, Nucleated RBC % 0, D-Dimer Quant (PE/DVT) 0.90H*, Sodium 139, Potassium 4.3, Chloride 102, Carbon Dioxide 24.4, Anion Gap12, BUN 12, Creatinine 0.87, Est GFR (MDRD) Non-Af 87, BUN/Creatinine Ratio 14.0, Glucose 116 H, Calcium 8.8, Magnesium Pending, Troponin T High Sens 25 H 11/15/24 12:25: Troponin T Hi Sens 2 Hr 21 11/15/24 14:04: Specimen Type ART, Sample Site R Radial, pH 7.43, Bicarbonate Actual 26.6 H, Total CO2 28, Base Excess 2, O2 Saturation 97, O2 % 5.0, ABG fSU363.9, ABG pO2 86, Maria R Test Positive, [id number] Device Cannula, Vent Mode Notentered 11/15/24 14:30: Troponin T Hi Sens 4Hr Pending Clinical Impression(s) from Imaging Studies Chest X-Ray 11/15/24 10:27 IMPRESSION: No active cardiopulmonary disease. Parenchymal scarring and/or subsegmental atelectasis, left lower lobe. Reading Location: [facility] Chest CTA 11/15/24 11:35 IMPRESSION: No signs of pulmonary embolism. Centrilobular emphysematous changes. Ground-glass opacities are scattered throughout the lower lobes. Can not exclude mild inflammation. Bronchiectatic changes along with bronchial thickening primarily in the lower lobes. Reading Location: [facility] Charges/Coding Visit Charges Inpatient E&M: 57472 Init Hosp L3 Procedures Hospitalists Procedures: 03820 Advncd Care Plan 30 Min 11/15/24 1458 Cosigner Signature (if applicable): CC: Dr. Rohan Henao MD; Dr. Fernandez Baig, DO~ Signed [facility]05-08-2025 Discharge summary [facility] Medical Records Department [address] [place] [address] Emergency Department Summary 11/15/24 MR#: [id number] Acct: [id number] Name: ELIANANANETTE Faith Rep #:[id number] : 1945 79 From: Beau aLne PCP: Dr. Fernandez Baig, DO Status:REG ER Location: ED HPI History of Present Illness Chief Complaint: Shortness of Breath Informant: patient and spouse/S.O. Narrative Narrative: Sent to ED after discussion with pulmonary office. History of COPD chronic oxygenation 4 L at rest 6 L with exertion. Remote tobacco history. 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 He states had cough shortness of breath 2 months ago seen in pulmonary office was started on prednisone daily at 10 mg. He states heis on antibiotics 3 days a week Tuesday with a Fridays. Each week symptoms have worsened. Wheezing at home. No diabetes. No fever or chills. Feels chest heaviness. Three-vessel CABG 2001 baby aspirin daily. Denies vomiting diarrheadenies urinary symptoms. He had no recent travel or surgeries prior symptoms starting. No history of PE or DVT. PE Risk Factors: Negative for Cancer, OCP + Smoking + > 35, Prior DVT or PE, Recent immobilization, Recent surgery or Recent travel Prior similar symptoms: Yes PFSH PFSH Medical History Old myocardial infarction Claudication, intermittent Premature ventricular contraction Hyperlipidemia Ischemic cardiomyopathy Atherosclerotic heart disease of [place] coronary artery without angina pectoris Displacement of other ocular prosthetic devices, implants and grafts, initial encounter Nocturnal hypoxia Tobacco dependence in remission Chronic hypoxemic respiratory failure COPD (chronic obstructive pulmonary disease) Home Medications ?Medication ?Instructions ?Recorded ?Last Taken ?Type aspirin 81 mg tablet,delayed 81 mg PO DAILY@1999 heart health 12/24/19 11/14/24 History release nitroglycerin 0.4 mg sublingual 0.4 mg sublingual Q5-1 5M PRN chest 03/22/22 Unknown Rx tablet pain #25 tabs Handicap Placcard #1 ea 07/29/22 Unknown Rx albuterol sulfate 2.5 mg/3 mL 2.5 mg (3 mL) inhalation Q4H #180 08/14/24 11/14/24 Rx (0.083 %) solution for nebulization mL albuterol sulfate 90 mcg/actuation 2 puff inhalation Q 4H PRN 08/14/24 Unknown Rx aerosol inhaler shortness of breath or wheez ing #8.5 grams arformoterol 15 mcg/2 mL solution 15 mcg (2 mL) inhala tion BID #120 08/14/24 11/14/24 Rx for nebulization (Brovana) mL budesonide 0.5 mg/2 mL suspension 0.5 mg (2 mL) inhala tion BID #120 08/14/24 11/14/24 Rx for nebulization mL guaifenesin 1,200 mg tablet, 1,200 mg PO Q12H #60 tabs 08/14/24 11/14/24 Rx extended release 12 hr metoprolol succinate 25 mg 12.5 mg (1/2 x 25 mg) PO DA RENÉ #45 08/20/24 11/14/24 Rx tablet,extended release 24 hr TABLETS rosuvastatin 20 mg tablet 20 mg PO DAILY #90 tabs 08/1111/14/24 Rx ipratropium 0.5 mg-albuterol 3 mg 3 ml inhalation ALMAZ Y 09/11/24 11/14/24 History (2.5 mg base)/3 mL nebulization soln isosorbide mononitrate 30 mg 30 mg PO DAILY #90 tabs 0 09/11/24 11/14/24 Rx tablet,extended release 24 hr losartan 25 mg tablet 25 mg PO BID #180 tabs 09/1111/14/24 Rx prednisone 10 mg tablet 10 mg PO DAILY 11/15/2402/01 History Allergy/AdvReac Type Severity Reaction Status Date / Time tiotropium (From Spiriva AdvReac Severe Decreased Verified 11/15/24 10:01 with HandiHaler) Urination cyanocobalamin (vitamin B12) AdvReac Other Verified 11/15/24 10:01 Family History Sister CAD (coronary artery disease) Hx of CABG Sister Breast cancer Brother COPD (chronic obstructive pulmonary disease) Surgical History Presence of aortocoronary bypass graft (~08/01/01) History of cochlear implant Postsurgical percutaneous transluminal coronary angioplasty (PTCA) status (~1989) Aortocoronary bypass status (~08/01/01) History of vasectomy Social History Smoking Status: Former smoker how long ago did patient quit smokin + years ago second hand exposure: No alcohol intake: current alcohol intake frequency: a few times a week substance use type: does not use caffeine: Yes ROS ROS ED Constitutional Constitutional ED: Denies chills, fever(s) or sweats ENT ENT ED: Denies sore throat Cardiovascular Cardiovascular: Reports chest pain; Denies leg edema, palpitations or racing heartbeat Respiratory/Chest Respiratory/Chest: Reports cough, dyspnea and dyspnea on exertion Gastrointestinal Gastrointestinal: Denies abdominal pain, diarrhea, nausea or vomiting Genitourinary Genitourinary ED: Denies dysuria, hematuria or urinary frequency Musculoskeletal Musculoskeletal: Denies back pain, extremity pain or neck pain Integumentary Denies rash or wounds Neurologic Neurologic: Denies headache(s), paresthesias or weakness EXAM Physical Exam Const Vital Signs: 11/15/24 10:00 11/15/24 10:00 11/15/24 10:04 Temperature 98 F 98.1 F Temperature Source Temporal Oral Pulse Rate 86 80 Respiratory Rate 32 H 34 H Respiratory Effort Respiratory Depth Respiratory Pattern Blood Pressure 148/77 H 155/82 H Blood Pressure Mean 100 106 Pulse Ox 91 93 88 Oxygen Delivery Method Nasal Cannula Nasal Cannula Nasal Cannula Oxygen Flow Rate (L/min) 5 5 5 11/15/24 10:04 11/15/24 10:27 11/15/24 11:04 Temperature 98.7 F Temperature Source Oral Pulse Rate 74 Respiratory Rate 16 Respiratory Effort Short of Breath Respiratory Depth Shallow Respiratory Pattern Tachypnea Blood Pressure 134/76 H Blood Pressure Mean 95 Pulse Ox 97 Oxygen Delivery Method Nasal Cannula Nasal Cannula Room Air Oxygen Flow Rate (L/min) 5 5 11/15/24 12:00 11/15/24 12:00 11/15/24 13:00 Temperature 98.7 F 98.7 F Temperature Source Oral Oral Pulse Rate 70 75 Respiratory Rate 70 H 20 H 23 H Respiratory Effort Respiratory Depth Respiratory Pattern Blood Pressure 123/69 H 123/69 H 130/71 H Blood Pressure Mean 87 87 90 Pulse Ox 94 93 Oxygen Delivery Method Nasal Cannula Nasal Cannula Oxygen Flow Rate (L/min) 5 5 11/15/24 13:00 11/15/24 13:05 Temperature 98.7 F Temperature Source Pulse Rate 83 Respiratory Rate 21 H Respiratory Effort Respiratory Depth Respiratory Pattern Blood Pressure 130/71 H 130/71 H Blood Pressure Mean 90 90 Pulse Ox 93 Oxygen Delivery Method Oxygen Flow Rate (L/min) Positive well nourished and well developed Constitutional Narrative: 5 L nasal cannula, no respiratory distress General Appearance ED: well developed and NAD HEENT Reports moist mucous membranes normocephalic and atraumatic Eyes General Eye ED: Yes normal appearance of both eyes Neck full ROM Chest Wall Chest: Negative for tenderness Resp normal respiratory effort and normal air movement Effort and Inspection: symmetric chest movement; Negative for respiratory distress Cardio regular rate, regular rhythm and no murmurs Peripheral Pulses: pulses 2+ throughout GI normal to inspection, nondistended, normoactive bowel sounds and non-tender Palpation: Negative for guarding or rebound tenderness present Extremity normal to inspection General Extremety ED: Negative for edema or tenderness General Extremity: Negative for edema Neuro oriented x3 and no sensory deficits noted Sensorium / Orientation: awake and alert Skin no rashes or lesions noted and no wounds MDM MDM MDM Narrative Medical decision making narrative: Interventions / MDM: Differential diagnosis: COPD exacerbation, failed outpatient treatment. Diagnosis considered but do not suspect: Pneumonia, pulmonary embolism however CT negative. My EKG interpretation: Sinus rate of 77, no ST changes. PVC noted. Incomplete left bundle branch block. Similar findings from December 2019. Imaging independently reviewed and interpreted by myself: 2 view chest x-ray: Left lower lobe atelectasis. No infiltrates. CT angiogram chest: Emphysema changes. No PE. Also read by radiology. External documents reviewed: N/A Test considered but not ordered:N/A ED course: Patient currently 5 L nasal cannula no respiratory distress waxing waning hypoxia down to 88% however go up into the 90s. 2 months of symptoms progressed. No PE risk factors. No active wheezing. EKG chronic changes. Will check labs x-ray Solu-Medrol ordered. D-dimer for further evaluation. Will likely require hospitalization as he is failing outpatient treatment. Leukocytosis of 20, has been on chronic steroids for couple months of 10 mg. Chest x-ray negative. D-dimer elevated subsequent CT chest negative for PE or infiltrates. Inflammatory process noted. Creatinine 0.7. Troponin 25 down to 21. Patient on 5 L oxygen. Baseline 4 to 6 L. Failed outpatient therapy. Discussed with hospitalist for admission. Re-evaluation: stable Disposition discussed with patient/family/significant other: Patient and spouse Case discussed with consulting clinician: Hospitalist This note was generated with Boni dictation software. It may contain incorrectwords, spelling, and punctuation that were not noted in checking the note beforesigning. Lab Data Attestation: I reviewed the patient's lab results. Labs: Laboratory Results - last 24 hr 11/15/24 11/15/24 10:13 12:25 WBC 20.1 H RBC 4.43 L Hgb 14.0 Hct 42.3 MCV 95.5 H MCH 31.6 MCHC 33.1 RDW Std Deviation 47.7 H RDW Coeff of Crystal 13.5 Plt Count 221 MPV 9.4 Immature Gran % (Auto) 0.400 Neut % (Auto) 86.4 H Lymph % (Auto) 6.7 L Burt % (Auto) 6.1 Eos % (Auto) 0.2 Baso % (Auto) 0.2 Absolute Neuts (auto) 17.3 H Absolute Lymphs (auto) 1.35 Nucleated RBC % 0 D-Dimer Quant (PE/DVT) 0.90 H* Sodium 139 Potassium 4.3 Chloride 102 Carbon Dioxide 24.4 Anion Gap 12 BUN 12 Creatinine 0.87 Est GFR (MDRD) Non-Af 87 BUN/Creatinine Ratio 14.0 Glucose 116 H Calcium 8.8 Troponin T High Sens 25 H Troponin T Hi Sens 2 Hr 21 Radiography Diagnostic Testing: Clinical Impression(s) from Imaging Studies Chest X-Ray 11/15/24 10:27 IMPRESSION: No active cardiopulmonary disease. Parenchymal scarring and/or subsegmental atelectasis, left lower lobe. Reading Location: [facility] Chest CTA 11/15/24 11:35 IMPRESSION: No signs of pulmonary embolism. Centrilobular emphysematous changes. Ground-glass opacities are scattered throughout the lower lobes. Can not exclude mild inflammation. Bronchiectatic changes along with bronchial thickening primarily in the lower lobes. Reading Location: [facility] Discharge Plan Triage Chief Complaint: Shortness of Breath ED Provider: Beau Costa Dx/Rx/DC Orders Prescriptions: No Action nitroglycerin 0.4 mg tablet, sublingual 0.4 mg SUBLINGUAL Q5-15M PRN (Reason: chest pain) Qty: 25 3RF Rx Instructions: until response; do not exceed 3 doses per event (DME) Handicap Placcard See Rx Instructions .ROUTE .MEDSUPPLY Qty: 1 0RF Rx Instructions: Time Duration: 99 months ipratropium-albuterol 0.5 mg-3 mg(2.5 mg base)/3 mL solution for nebulization 3 ml inhalation DAILY losartan 25 mg tablet 25 mg PO BID Qty: 180 4RF isosorbide mononitrate 30 mg tablet extended release 24 hr 30 mg PO DAILY Qty: 90 4RF Rx Instructions: Takes at 1200 albuterol sulfate 90 mcg/actuation HFA aerosol inhaler 2 puff INHALATION Q4H PRN (Reason: shortness of breath or wheezing) Qty: 8.5 3RF Rx Instructions: administer with spacer albuterol sulfate 2.5 mg /3 mL (0.083 %) solution for nebulization 2.5 mg INHALATION Q4H Qty: 180 6RF Brovana 15 mcg/2 mL solution for nebulization 15 mcg INHALATION BID Qty: 120 11RF budesonide 0.5 mg/2 mL suspension for nebulization 0.5 mg INHALATION BID Qty: 120 11RF guaifenesin 1,200 mg tablet extended release 12hr 1,200 mg PO Q12H Qty: 60 6RF aspirin 81 MG tablet 81 mg PO DAILY@2000 prednisone 10 mg tablet 10 mg PO DAILY metoprolol succinate 25 mg tablet extended release 24 hr 12.5 mg PO DAILY Qty: 45 4RF rosuvastatin 20 mg tablet 20 mg PO DAILY Qty: 90 4RF Primary Care Provider: Fernandez Baig Referrals: Fernandez Baig DO [Primary Care Provider] - Print Language: Tongan What to do if you have Problems For any increased pain, shortness of breath, bleeding, nausea or vomiting, chestpain, or any unexpected problems, contact your Primary Care Provider. Call [facility] ([phone]) or report tothe closest Emergency Room. Call 911 if necessary. 11/15/24 1403 Cosigner Signature (if applicable): CC: Dr. Fernandez Baig DO ~ Signed ADDENDUM by Dr. Beau Costa DO on 11/15/24 at 1408 ABG requested by hospitalist, pH 7.43, [id number], PaO2 85 11/15/24 1408 Cosigner Signature (if applicable): cc: Dr. Fernandez Baig, ~* Signed [facility]05-08-2025 Discharge summary Author Beau Costa [facility] Note Date/Time November 15, 2024 2:08pm [facility] Medical Records Department [address] [place] [address] Emergency Department Summary 11/15/24 MR#: [id number] Acct: [id number] Name: NANETTE MONROY Rep #:[id number] : 1945 79 From: Beau Lane PCP: Dr. Fernandez Baig, DO Status:REG ER Location: ED HPI History of Present Illness Chief Complaint: Shortness of Breath Informant: patient and spouse/S.O. Narrative Narrative: Sent to ED after discussion with pulmonary office. History of COPD chronic oxygenation 4 L at rest 6 L with exertion. Remote tobacco history. 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 He states had cough shortness of breath 2 months ago seen in pulmonary office was started on prednisone daily at 10 mg. He states heis on antibiotics 3 days a week Tuesday with a Fridays. Each week symptoms have worsened. Wheezing at home. No diabetes. No fever or chills. Feels chest heaviness. Three-vessel CABG 2001 baby aspirin daily. Denies vomiting diarrheadenies urinary symptoms. He had no recent travel or surgeries prior symptoms starting. No history of PE or DVT. PE Risk Factors: Negative for Cancer, OCP + Smoking + > 35, Prior DVT or PE, Recent immobilization, Recent surgery or Recent travel Prior similar symptoms: Yes PFSH PFS Medical History Old myocardial infarction Claudication, intermittent Premature ventricular contraction Hyperlipidemia Ischemic cardiomyopathy Atherosclerotic heart disease of [place] coronary artery without angina pectoris Displacement of other ocular prosthetic devices, implants and grafts, initial encounter Nocturnal hypoxia Tobacco dependence in remission Chronic hypoxemic respiratory failure COPD (chronic obstructive pulmonary disease) Home Medications ?Medication ?Instructions ?Recorded ?Last Taken ?Type aspirin 81 mg tablet,delayed 81 mg PO DAILY@1999 [facility] 12/24/19 11/14/24 History release nitroglycerin 0.4 mg sublingual 0.4 mg sublingual Q5-1 5M PRN chest 03/22/22 Unknown Rx tablet pain #25 tabs Handicap Placcard #1 ea 07/29/22 Unknown Rx albuterol sulfate 2.5 mg/3 mL 2.5 mg (3 mL) inhalation Q4H #180 08/14/24 11/14/24 Rx (0.083 %) solution for nebulization mL albuterol sulfate 90 mcg/actuation 2 puff inhalation Q 4H PRN 08/14/24 Unknown Rx aerosol inhaler shortness of breath or wheez ing #8.5 grams arformoterol 15 mcg/2 mL solution 15 mcg (2 mL) inhala tion BID #120 08/14/24 11/14/24 Rx for nebulization (Brovana) mL budesonide 0.5 mg/2 mL suspension 0.5 mg (2 mL) inhala tion BID #120 08/14/24 11/14/24 Rx for nebulization mL guaifenesin 1,200 mg tablet, 1,200 mg PO Q12H #60 tabs 08/14/24 11/14/24 Rx extended release 12 hr metoprolol succinate 25 mg 12.5 mg (1/2 x 25 mg) PO DA RENÉ #45 08/20/24 11/14/24 Rx tablet,extended release 24 hr TABLETS rosuvastatin 20 mg tablet 20 mg PO DAILY #90 tabs 0211/14/24 Rx ipratropium 0.5 mg-albuterol 3 mg 3 ml inhalation ALMAZ Y 09/11/24 11/14/24 History (2.5 mg base)/3 mL nebulization soln isosorbide mononitrate 30 mg 30 mg PO DAILY #90 tabs 0 09/11/24 11/14/24 Rx tablet,extended release 24 hr losartan 25 mg tablet 25 mg PO BID #180 tabs 09/1111/14/24 Rx prednisone 10 mg tablet 10 mg PO DAILY 11/15/24 0502/01 History Allergy/AdvReac Type Severity Reaction Status Date / Time tiotropium (From Spiriva AdvReac Severe Decreased Verified 11/15/24 10:01 with HandiHaler) Urination cyanocobalamin (vitamin B12) AdvReac Other Verified 11/15/24 10:01 Family History Sister CAD (coronary artery disease) Hx of CABG Sister Breast cancer Brother COPD (chronic obstructive pulmonary disease) Surgical History Presence of aortocoronary bypass graft (~08/01/01) History of cochlear implant Postsurgical percutaneous transluminal coronary angioplasty (PTCA) status (~1989) Aortocoronary bypass status (~08/01/01) History of vasectomy Social History Smoking Status: Former smoker how long ago did patient quit smokin + years ago second hand exposure: No alcohol intake: current alcohol intake frequency: a few times a week substance use type: does not use caffeine: Yes ROS ROS ED Constitutional Constitutional ED: Denies chills, fever(s) or sweats ENT ENT ED: Denies sore throat Cardiovascular Cardiovascular: Reports chest pain; Denies leg edema, palpitations or racing heartbeat Respiratory/Chest Respiratory/Chest: Reports cough, dyspnea and dyspnea on exertion Gastrointestinal Gastrointestinal: Denies abdominal pain, diarrhea, nausea or vomiting Genitourinary Genitourinary ED: Denies dysuria, hematuria or urinary frequency Musculoskeletal Musculoskeletal: Denies back pain, extremity pain or neck pain Integumentary Denies rash or wounds Neurologic Neurologic: Denies headache(s), paresthesias or weakness EXAM Physical Exam Const Vital Signs: 11/15/24 10:00 11/15/24 10:00 11/15/24 10:04 Temperature 98 F 98.1 F Temperature Source Temporal Oral Pulse Rate 86 80 Respiratory Rate 32 H 34 H Respiratory Effort Respiratory Depth Respiratory Pattern Blood Pressure 148/77 H 155/82 H Blood Pressure Mean 100 106 Pulse Ox 91 93 88 Oxygen Delivery Method Nasal Cannula Nasal Cannula Nasal Cannula Oxygen Flow Rate (L/min) 5 5 5 11/15/24 10:04 11/15/24 10:27 11/15/24 11:04 Temperature 98.7 F Temperature Source Oral Pulse Rate 74 Respiratory Rate 16 Respiratory Effort Short of Breath Respiratory Depth Shallow Respiratory Pattern Tachypnea Blood Pressure 134/76 H Blood Pressure Mean 95 Pulse Ox 97 Oxygen Delivery Method Nasal Cannula Nasal Cannula Room Air Oxygen Flow Rate (L/min) 5 5 11/15/24 12:00 11/15/24 12:00 11/15/24 13:00 Temperature 98.7 F 98.7 F Temperature Source Oral Oral Pulse Rate 70 75 Respiratory Rate 70 H 20 H 23 H Respiratory Effort Respiratory Depth Respiratory Pattern Blood Pressure 123/69 H 123/69 H 130/71 H Blood Pressure Mean 87 87 90 Pulse Ox 94 93 Oxygen Delivery Method Nasal Cannula Nasal Cannula Oxygen Flow Rate (L/min) 5 5 11/15/24 13:00 11/15/24 13:05 Temperature 98.7 F Temperature Source Pulse Rate 83 Respiratory Rate 21 H Respiratory Effort Respiratory Depth Respiratory Pattern Blood Pressure 130/71 H 130/71 H Blood Pressure Mean 90 90 Pulse Ox 93 Oxygen Delivery Method Oxygen Flow Rate (L/min) Positive well nourished and well developed Constitutional Narrative: 5 L nasal cannula, no respiratory distress General Appearance ED: well developed and NAD HEENT Reports moist mucous membranes normocephalic and atraumatic Eyes General Eye ED: Yes normal appearance of both eyes Neck full ROM Chest Wall Chest: Negative for tenderness Resp normal respiratory effort and normal air movement Effort and Inspection: symmetric chest movement; Negative for respiratory distress Cardio regular rate, regular rhythm and no murmurs Peripheral Pulses: pulses 2+ throughout GI normal to inspection, nondistended, normoactive bowel sounds and non-tender Palpation: Negative for guarding or rebound tenderness present Extremity normal to inspection General Extremety ED: Negative for edema or tenderness General Extremity: Negative for edema Neuro oriented x3 and no sensory deficits noted Sensorium / Orientation: awake and alert Skin no rashes or lesions noted and no wounds MDM MDM MDM Narrative Medical decision making narrative: Interventions / MDM: Differential diagnosis: COPD exacerbation, failed outpatient treatment. Diagnosis considered but do not suspect: Pneumonia, pulmonary embolism however CT negative. My EKG interpretation: Sinus rate of 77, no ST changes. PVC noted. Incomplete left bundle branch block. Similar findings from December 2019. Imaging independently reviewed and interpreted by myself: 2 view chest x-ray: Left lower lobe atelectasis. No infiltrates. CT angiogram chest: Emphysema changes. No PE. Also read by radiology. External documents reviewed: N/A Test considered but not ordered:N/A ED course: Patient currently 5 L nasal cannula no respiratory distress waxing waning hypoxia down to 88% however go up into the 90s. 2 months of symptoms progressed. No PE risk factors. No active wheezing. EKG chronic changes. Will check labs x-ray Solu-Medrol ordered. D-dimer for further evaluation. Will likely require hospitalization as he is failing outpatient treatment. Leukocytosis of 20, has been on chronic steroids for couple months of 10 mg. Chest x-ray negative. D-dimer elevated subsequent CT chest negative for PE or infiltrates. Inflammatory process noted. Creatinine 0.7. Troponin 25 down to 21. Patient on 5 L oxygen. Baseline 4 to 6 L. Failed outpatient therapy. Discussed with hospitalist Dr. Henao for admission. Re-evaluation: stable Disposition discussed with patient/family/significant other: Patient and spouse Case discussed with consulting clinician: Hospitalist This note was generated with [employer]ation software. It may contain incorrectwords, spelling, and punctuation that were not noted in checking the note beforesigning. Lab Data Attestation: I reviewed the patient's lab results. Labs: Laboratory Results - last 24 hr 11/15/24 11/15/24 10:13 12:25 WBC 20.1 H RBC 4.43 L Hgb 14.0 Hct 42.3 MCV 95.5 H MCH 31.6 MCHC 33.1 RDW Std Deviation 47.7 H RDW Coeff of Crystal 13.5 Plt Count 221 MPV 9.4 Immature Gran % (Auto) 0.400 Neut % (Auto) 86.4 H Lymph % (Auto) 6.7 L Burt % (Auto) 6.1 Eos % (Auto) 0.2 Baso % (Auto) 0.2 Absolute Neuts (auto) 17.3 H Absolute Lymphs (auto) 1.35 Nucleated RBC % 0 D-Dimer Quant (PE/DVT) 0.90 H* Sodium 139 Potassium 4.3 Chloride 102 Carbon Dioxide 24.4 Anion Gap 12 BUN 12 Creatinine 0.87 Est GFR (MDRD) Non-Af 87 BUN/Creatinine Ratio 14.0 Glucose 116 H Calcium 8.8 Troponin T High Sens 25 H Troponin T Hi Sens 2 Hr 21 Radiography Diagnostic Testing: Clinical Impression(s) from Imaging Studies Chest X-Ray 11/15/24 10:27 IMPRESSION: No active cardiopulmonary disease. Parenchymal scarring and/or subsegmental atelectasis, left lower lobe. Reading Location: [facility] Chest CTA 11/15/24 11:35 IMPRESSION: No signs of pulmonary embolism. Centrilobular emphysematous changes. Ground-glass opacities are scattered throughout the lower lobes. Can not exclude mild inflammation. Bronchiectatic changes along with bronchial thickening primarily in the lower lobes. Reading Location: [facility] Discharge Plan Triage Chief Complaint: Shortness of Breath ED Provider: Beau Costa Dx/Rx/DC Orders Prescriptions: No Action nitroglycerin 0.4 mg tablet, sublingual 0.4 mg SUBLINGUAL Q5-15M PRN (Reason: chest pain) Qty: 25 3RF Rx Instructions: until response; do not exceed 3 doses per event (DME) Handicap Placcard See Rx Instructions .ROUTE .MEDSUPPLY Qty: 1 0RF Rx Instructions: Time Duration: 99 months ipratropium-albuterol 0.5 mg-3 mg(2.5 mg base)/3 mL solution for nebulization 3 ml inhalation DAILY losartan 25 mg tablet 25 mg PO BID Qty: 180 4RF isosorbide mononitrate 30 mg tablet extended release 24 hr 30 mg PO DAILY Qty: 90 4RF Rx Instructions: Takes at 1200 albuterol sulfate 90 mcg/actuation HFA aerosol inhaler 2 puff INHALATION Q4H PRN (Reason: shortness of breath or wheezing) Qty: 8.5 3RF Rx Instructions: administer with spacer albuterol sulfate 2.5 mg /3 mL (0.083 %) solution for nebulization 2.5 mg INHALATION Q4H Qty: 180 6RF Brovana 15 mcg/2 mL solution for nebulization 15 mcg INHALATION BID Qty: 120 11RF budesonide 0.5 mg/2 mL suspension for nebulization 0.5 mg INHALATION BID Qty: 120 11RF guaifenesin 1,200 mg tablet extended release 12hr 1,200 mg PO Q12H Qty: 60 6RF aspirin 81 MG tablet 81 mg PO DAILY@2000 prednisone 10 mg tablet 10 mg PO DAILY metoprolol succinate 25 mg tablet extended release 24 hr 12.5 mg PO DAILY Qty: 45 4RF rosuvastatin 20 mg tablet 20 mg PO DAILY Qty: 90 4RF Primary Care Provider: Fernandez Baig Referrals: Fernandez Baig DO [Primary Care Provider] - Print Language: Tongan What to do if you have Problems For any increased pain, shortness of breath, bleeding, nausea or vomiting, chestpain, or any unexpected problems, contact your Primary Care Provider. Call [facility] ([phone]) or report to the closest Emergency Room. Call 911 if necessary. 11/15/24 1403 <Electronically signed by Beau Lane> Cosigner Signature (if applicable): CC: Dr. Fernandez Baig DO ~ Signed ADDENDUM by Dr. Beau Costa DO on 11/15/24 at 1408 ABG requested by hospitalist, pH 7.43, [id number], PaO2 85 11/15/24 1408<Electronically signed by Beau Lane> Cosigner Signature (if applicable): cc: Dr. Fernandez Baig DO ~* Signed [facility] Work Phone: 1(195) 936-667905-08-2025 Radiology Diagnostic study note [facility] Imaging Services [address] [place] [address] [id number] CTA Chest W/WO Contrast MR#: [id number] Acct: [id number] Name: NANETTE MONROY Rep #: [id number] : 1945 M 79 From: Lala Montes MD PCP: Dr. Fernandez Baig DO Status: [facility] ER Study:CTA Chest W/WO Contrast Date of Exam: 11/15/24 Exam# [id number] Ordering Dr: Beau Costa DO PROCEDURE: CTA CHEST WITH CONTRAST 11/15/2024 REASON FOR EXAM: SOB, ELEVATED DIMER TECHNIQUE: CTA imaging of the chest with intravenous contrast. Contiguous axial scans of 1.25 mm slice thicknesses Sagittal and coronal multiplanar and multisequence images were obtained. One or more dose reduction techniques were used (e.g., Automated exposure control, adjustment of the mA and/or kV according to patient size, use of iterative reconstruction technique). CONTRAST: Isovue 370 VOLUME: 90 mL Contiguous axial scans of mm slice thicknesses. Sagittal and coronal reconstruction images were obtained. One or more dose reduction techniques were used (e.g., automated exposure control, adjustment of mAand/or kv according to patient size, use of iterative reconstruction technique). RADIATION DOSE SUMMARY: DLP: 430.93 mGycm COMPARISON: Chest radiograph dated 12/24/2019 FINDINGS: Lungs and Airways: Bilateral centrilobular emphysematous changes are noted. Bronchiectatic changes along with bronchial thickening in the lower lobes. Areas of ground-glass opacification are also scattered throughout the lower lobes. 0.7 cm noncalcified micronodule in the right upper lobe, axial image 107. A 0.7 cm noncalcified micronodule in the superior segment of the left lower lobe, axial image 107. Old healed granulomatous changes in the right lower lobe. Pleura: No pleural effusion. No pneumothorax. Heart: Normal heart size. No pericardial effusion. Pericardium: No thickening. Coronary arteries: Mild calcifications. Thoracic Aorta: No thoracic aortic aneurysm or dissection. Pulmonary Vessels: No large central filling defects. Mediastinum: No mediastinal hilar or axillary lymphadenopathy. Thyroid:No nodules.. Upper Abdomen: Visualized portions of the upper abdominal viscera are unremarkable. Bones: Mild multilevel spondylosis. Median sternotomy wires are noted. CT/CTA Chest W/WO Contrast IMPRESSION: No signs of pulmonary embolism. Centrilobular emphysematous changes. Ground-glass opacities are scattered throughout the lower lobes. Can not exclude mild inflammation. Bronchiectatic changes along with bronchial thickening primarily in the lower lobes. Reading Location: [facility] CC: Dr. Fernandez Baig DO; Dr. Beau Costa DO ~ Embedded Linux Engineer: Signed [facility]05-08-2025 Radiology Diagnostic study note [facility] Imaging Services [address] [place], [place] [id number] Chest PA and Lateral MR#: [id number] Acct: [id number] Name: NANETTE MONROY Rep #: [id number] : 1945 M 79 From: Lala Montes MD PCP: Dr. Fernandez Baig DO Status: [facility] Study:Chest PA and Lateral Date of Exam: 11/15/24 Exam# [id number] Ordering Dr: Beau Costa DO PROCEDURE: CHEST PA AND LATERAL 11/15/2024 REASON FOR EXAM: COUGH , SOB TECHNIQUE: Frontal and lateral views of the chest. COMPARISON: 12/24/2019 FINDINGS: Lungs: Lungs clear of pneumonia and congestion. Parenchymal scarring and/or subsegmental atelectasis in the left lung base. Pleura: No pleural effusions, thickening, or pneumothorax. Heart: Normal in size and configuration. Mediastinum/Roseline: Unremarkable. Great vessels: Unremarkable. Bones/soft tissues: Unremarkable. Median sternotomy wires. Cardiac monitoring leads overlie the chest wall. RAD/Chest PA and Lateral IMPRESSION: No active cardiopulmonary disease. Parenchymal scarring and/or subsegmental atelectasis, left lower lobe. Reading Location: [facility] CC: Dr. Fernandez Baig DO; Dr. Beau Costa DO ~ Embedded Linux Engineer: Signed [facility]04-18-2025 History of Present illness Narrative* Anastasiya Fink, AUD - 10/26/2024 2:30 PM EDT Head and Neck [place] [facility] COCHLEAR IMPLANT ADULT PROGRAMMING Name: Nanette Monroy [facility]#: [id number] Date of Service: October 26, 2024 Date of : 1945 Age: [age] year old COCHLEAR IMPLANT INFORMATION (see below for all device details) RIGHT ear: External Processor: [employer]chle[employer] [id number] (N7) External Processor [employer]chle[employer] Nucleus 7 (Upgraded Sep 2021) Processor SN [id number] Magnet Strength 1M Internal Device Cochlear CI 512 Inactive electrodes E6-7 Surgery Date March 2016 Initial activation date May [address] Fox LEFT ear: Resound Nexia 960S-DR SN: [id number] with 1xMP and med power dome Fit and managed at an outside facility ([employer]) Wireless Accessory Set up Fee Paid: No HISTORY: Mr. Monroy was seen today to link his hearing aid in the Cochlear programming software upon return from forming machine tender repair. Mr. Monroy reported the forming machine tender sent a new hearing aid with a new serial number. COCHLEAR IMPLANT PROGRAMMING/TROUBLESHOOTING: Datalogging: On air: 13.9 hours / Speech: 0.3 hours RIGHT Programming: Headset pressure, magnet strength, and incision site were checked with no problems noted. Electrode impedances, used to monitor internal device function, were measured across the electrode array. Impedances were WNL across all active electrodes. Programming consisted of: Left hearing aid was linked within the Cochlear programming software. Verified both devices were connected to patient's phone for streaming and within the Cochlear mary. Initially encountered difficulty with pairing hearing aid within Cochlear's software. Hearing aid was connected to [employer] software to ensure hearing aid had been programmed with most recent version of AppTrigger's software. 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 Additionally, while attempting to pair hearing aid and processor to patient's phone, both devices showed connected in [facility] mary, but streaming was only to the processor and not the hearing aid. All Bluetooth pairings were deleted and re-paired devices, which resolved this issue. The function/use of the programs created were discussed and are listed below: Right Ear Program/Map # Program Feature 1 53 SCAN (ADRO + ASC), SNR-NR,WNR 2 53 Noise (Zoom+ADRO+ASC) Active controls include: volume, telecoil and user controlled forward focus. Battery Life: Battery Life Estimation: Right: Disposable 37 hours Power Extend 19 hours Compact 9 hours SUMMARY AND RECOMMENDATIONS: Counseling Points: * Continue to monitor magnet/incision site for pain, redness, swelling, scabbing etc. Should any ofthese occur discontinue use of device immediately and contact the office. * Continue use of right processor and left hearing aid during all waking hours. Follow-up Programming: It was recommended that the patient return on 04/23/2025 for monitoring of auditory performance and potential programming needs. The center should be contacted if there are problems or concerns before that time. NOTE: It should be noted that the patient left the appointment with all the equipment. None of the patient's equipment was left in the Audiology Section of the Clinic. TOTAL TIME: 45 minutes Programming right 20 minutes Jacqueline Aceves BA Doctor of Audiology ([place]on) Talent Partner Devon Ni, [facility] Clinical and Hearing Implant Water Taxi Operator documented in this encounterKet[facility]04-18-2025 NoteHNO ID: [id number] Author: ANASTASIYA FINK AUD Service: ? Author Type: Water Taxi Operator Type: Progress Notes Filed: 10/31/2024 12:13 Note Text: Head and Neck [place] Section of Allied Hearing, Speech and Balance Services COCHLEAR IMPLANT ADULT PROGRAMMING Name: Nanette Monroy CC#: [id number] Date of Service: October 26, 2024 Date of : 1945 Age: [age] year old COCHLEAR IMPLANT INFORMATION (see below for all device details) RIGHT ear: External Processor: Cochlear [employer] [id number] (N7) External Processor Cochlear [employer] Nucleus 7 (Upgraded Sep 2021) Processor SN [id number] Magnet Strength 1M Internal Device Cochlear CI 512 Inactive electrodes E6-7 Surgery Date March 2016 Initial activation date May [address] Fox LEFT ear: Resound Nexia 960S-DRWC SN: [id number] with 1xMP and Stubmatic dome Fit and managed at an outside facility ([facility]) Wireless Accessory Set up Fee Paid: No HISTORY: Mr. Monroy was seen today to link his hearing aid in the Cochlear programming software upon return from forming machine tender repair. Mr. Monroy reported the forming machine tender sent a new hearing aid with a new serial number. COCHLEAR IMPLANT PROGRAMMING/TROUBLESHOOTING: Datalogging: On air: 13.9 hours / Speech: 0.3 hours RIGHT Programming: Headset pressure, magnet strength, and incision site were checked with no problems noted. Electrode impedances, used to monitor internal device function, were measured across the electrode array. Impedances were WNL across all active electrodes. Programming consisted of: Left hearing aid was linked within the Cochlear programming software. Verified both devices were connected to patient's phone for streaming and within the Cochlear mary. Initially encountered difficulty with pairing hearing aid within Cochlear's software. Hearing aid was connected to [employer] software to ensure hearing aid had been programmed with most recent version of App[employer]'s software. 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 Additionally, while attempting to pair hearing aid and processor to patient's phone, both devices showed connected in [employer] mary, but streaming was only to the processor and not the hearing aid. All Bluetooth pairings were deleted and re-paired devices, which resolved this issue. The function/use of the programs created were discussed and are listed below: Right Ear Program/Map # Program Feature 1 53 SCAN (ADRO + ASC), SNR-NR,WNR 2 53 Noise (Zoom+ADRO+ASC) Active controls include: volume, telecoil and user controlled forward focus. Battery Life: Battery Life Estimation: Right: Disposable 37 hours Power Extend 19 hours Compact 9 hours SUMMARY AND RECOMMENDATIONS: Counseling Points: * Continue to monitor magnet/incision site for pain, redness, swelling, scabbing etc. Should any of these occur discontinue use of device immediately and contact the office. * Continue use of right processor and left hearing aid during all waking hours. Follow-up Programming: It was recommended that the patient return on 04/23/2025 for monitoring of auditory performance and potential programming needs. The center should be contacted if there are problems or concerns before that time. NOTE: It should be noted that the patient left the appointment with all the equipment. None of the patient's equipment was left in the Audiology Section of the Clinic. TOTAL TIME: 45 minutes Programming right 20 minutes Jacqueline Aceves BA Doctor of Audiology ([place]) Talent Partner Devon Ni, [facility] Clinical and Hearing Implant [facility]ologistC[facility] Telephone encounter Note* Telephone Encounter - Mathew Gudino - 10/18/2024 10:59 AM EDT Need to connect new THAYER to CI and get connected to phone. Got a repaired THAYER device. 10/26 2:30 opening JOSUE Gudino Hearing Implant Telephone Instrument Supervisor [email or web address] [facility]04-10-2025 Miscellaneous Notes* Telephone Encounter - Mathew Gudino - 10/18/2024 10:59 AM EDT Need to connect new THAYER to CI and get connected to phone. Got a repaired THAYER device. 10/26 2:30 opening JOSUE Gudino Hearing Implant Telephone Instrument Supervisor [email or web address] documented in this encounterKettering [facility] Hospital02-04-2025 Evaluation note* Diagnosis Onset Date Resolution Status Admit Date Chronic hypoxemic respirator y failure chronic August 14 9:29am Stage 3 severe COPD by GOLD classification August 14 9:29am Atherosclerotic heart diseas e of [place] coronary artery without angina pectoris september 10:10am COPD (chronic obstructive pulmonary disease) chronic September 11 10:10am Hyperlipidemia chronic September 11, 2024 10:10am Ischemic cardiomyopathy chronic 2024 10:10am Chronic hypoxemic respirator y failure September 12, 2024 9:16am Stage 3 severe COPD by GOLD classification September 12, 2024 9:16am Acute on chronic hypoxic respiratory failure chronic November 15 1:43pm COPD exacerbation chronic November 1:43pm [facility] Work Phone: [phone] [phone] Telephone encounter Note* Telephone Encounter - Mathew Gudino - 06/20/2024 4:08 PM EST The mary for the hearing aid is frozen when you go in to use it. He used to be able to adjust different settings. If he puts the THAYER back in the railroad worker and bring it back then he gets it back but then as soon as he turns it off then he loses it again. Working right now, is able to stream to both ears. I will check in tomorrow and see if it resolves once the hearing aid has charged all night. Mathew Gudino Hearing Implant Telephone Instrument Supervisor [facility]12-11-2024 Miscellaneous Notes* Telephone Encounter - Mathew Gudino - 06/20/2024 4:08 PM EST The mary for the hearing aid is frozen when you go in to use it. He used to be able to adjust different settings. If he puts the THAYER back in the railroad worker and bring it back then he gets it back but then as soon as he turns it off then he loses it again. Working right now, is able to stream to both ears. I will check in tomorrow and see if it resolves once the hearing aid has charged all night. Mathew Gudino Hearing Implant Telephone Instrument Supervisor * Telephone Encounter - Mathew Gudino - 06/20/2024 2:59 PM EST Trying to locate battery door on left hearing aid. The mary is telling him to do that to connect it.Tried to get a pin to open it but can't. Once it's open, hit continue, and Trying to pair the hearing aid to CI through phone mary. Will reach out to providers and call back. Mathew Gudino Hearing Implant Telephone Instrument Supervisor documented in this encounterKettering [facility] Hospital12-11-2024 Telephone encounter Note * Telephone Encounter - Mathew Gudino - 06/20/2024 2:59 PM EST Trying to locate battery door on left hearing aid. The mary is telling him to do that to connect it.Tried to get a pin to open it but can't. Once it's open, hit continue, and Trying to pair the hearing aid to CI through phone mary. Will reach out to providers and call back. Mathew Gudino Hearing Implant Telephone Instrument Supervisor [facility]12-10-[facility] History of Present illness Narrative* Anastasiya Fink AUD - 06/19/2024 10:30 AM EST Images from the original note were not included. Head and Neck [place] Section of Allied Hearing, Speech and Balance Services COCHLEAR IMPLANT ADULT PROGRAMMING Name: Nanette Monroy CC#:[id number] Date of Service: 06/19/2024 Date of : 1945 Age: [age] year old COCHLEAR IMPLANT INFORMATION (see below for all device details) RIGHT ear: External Processor: Cochlear [employer] [id number] (N7) External Processor Cochlear [employer] Nucleus 7 (Upgraded Sep 2021) Processor SN [id number] Magnet Strength 1M Internal Device Cochlear CI 512 Inactive electrodes E6-7 Surgery Date March 2016 Initial activation date May [address] Fox LEFT ear: Resound Nexia 960S-DRC SN: [id number] with 1xMP and med power dome Fit and managed at an outside facility ([facility]) Wireless Accessory Set up Fee Paid: No HISTORY: Nanette Monroy was seen for monitoring of the device/s. The patient reported: * No pain, redness, swelling at magnet site. * Microphone covers last changed a few weeks ago * Wearing sound processor:all waking hours * Questions about how to get new batteries when needed. Quyen Tee was requesting batteries for him * Would like to continue to have Dr. Fox as his managing ENT instead of establishing with [facility] * Feels he hears better with his new hearing aid. Would like to have this managed at [facility] AIDED AUDIOMETRIC TESTING: Audiologic testing was completed in the sound field with the speech processor(s) at user settings (Program: 1; Volume: 6; Sensitivity: 12.) before programming. See the SmartForm Audiogram for obtained thresholds. Speech perception testing was completed at 60 dump motor operator using recorded stimuli in the sound field at 0 degrees azimuth. NOTE: The contralateral ear was plugged and muffed or masked during testing. The following testing and results were obtained: Isywwybsj-Bcjzlde-Qtrrukcdp Words (CNC) Test Condition List # Phonemes Words Clinically significant change compared to previous visit? Clinically significant change compared to BEST? Right Ear 3 84% 72% Baseline Baseline Bimodal 8 92% 84% Baseline Baseline AZ BIO (quiet) Test Condition List # Score Clinically significant change compared to previous visit? Clinically significant change compared to BEST? Right Ear 2 80% Baseline Baseline Bimodal 7 91% Baseline Baseline AZ BIO (+10 SNR) Test Condition List # Score Clinically significant change compared to previous visit? Clinically significant change compared to BEST? Right Ear 5 48% Baseline Baseline Bimodal 6 52% Baseline Baseline Summary: Aided detection obtained essentially in the expected range (20-30 dB HL) from 250-6000 Hz, with detection at 35 dB HL from 250-500 Hz and 2233-0658 Hz. Baseline speech measures obtained today demonstrate good benefit from right CI with slight bimodal benefit from use of bilateral devices. CONTRALATERAL HEARING AID PROGRAMMING/TROUBLESHOOTING: This patient was seen today for a Hearing Aid Check. Audiogram obtained from hearing aid fitting software, see below: Patient's hearing aid connected to software to verify patient had access to tap control, a feature he liked with his Phonak hearing aid. Confirmed tap control active. Patient's incoming settings weresaved. No further programming changes made. COCHLEAR IMPLANT PROGRAMMING/TROUBLESHOOTING: Datalogging: Datalogging Right Ear Time in Use 14 hours Time in Speech 0.8 hours Coil-offs 0 RIGHT Programming: Headset pressure, magnet strength, and incision site were checked with no problems noted. Electrode impedances, used to monitor internal device function, were measured across the electrode array. Impedances were WNL across all active electrodes. Review of impedances obtained today with comparison to previous visit did not identify any remarkable changes or atypical measurements. Programming consisted of adjusting Threshold (T) levels based on detection obtained in the sound ruffin and setting Comfort (C) levels at loud, but comfortable using a loudness scale. Several activeelectrodes were measured and the rest were interpolated. Minimal changes made to C levels. The function/use of the programs created were discussed and are listed below: Right Ear Program/Map # Program Feature 1 53 SCAN (ADRO + ASC), SNR-NR,WNR 2 53 Noise (Zoom+ADRO+ASC) Active controls include: volume, telecoil and user controlled forward focus. Battery Life: Battery Life Estimation: Right: Disposable 36 hours Power Extend 19 hours Compact 9 hours SUMMARY AND RECOMMENDATIONS: Counseling Points: * Recommend contacting [facility] for purchasing new batteries * Continue to monitor magnet/incision site for pain, redness, swelling, scabbing etc. Should any ofthese occur discontinue use of device immediately and contact the office. * Continue use of right processor and left hearing aid during all waking hours. Follow-up Programming: It was recommended that the patient return in 1 year for monitoring of auditory performance and potential programming needs. The center should be contacted if there are problems or concerns before that time. NOTE: It should be noted that the patient left the appointment with all the equipment. None of the patient's equipment was left in the Audiology Section of the Clinic. TOTAL TIME: 90 minutes Programming right 20 minutes Programming left 0 minutes Evaluation of auditory status 37 minutes Devon Ni, [facility] Clinical and Hearing Implant Water Taxi Operator documented in this encounterKettering [facility] Hospital12-10-2024 NoteHNO ID: [id number] Author: ANASTASIYA FINK AUD Service: ? Author Type: Water Taxi Operator Type: Progress Notes Filed: 06/26/2024 22:36 Note Text: Head and Neck [place] Section of Allied Hearing, Speech and Balance Services COCHLEAR IMPLANT ADULT PROGRAMMING Name: Nanette Monroy [facility]#:[id number] Date of Service: 06/19/2024 Date of : 1945 Age: [age] year old COCHLEAR IMPLANT INFORMATION (see below for all device details) RIGHT ear: External Processor: Cochlear [employer] [id number] (N7) External Processor Cochlear [employer] Nucleus 7 (Upgraded Sep 2021) Processor SN [id number] Magnet Strength 1M Internal Device Cochlear CI 512 Inactive electrodes E6-7 Surgery Date March 2016 Initial activation date May [address] Fox LEFT ear: Resound Nexia 960S-DRWC SN: [id number] with 1xMP and Stubmatic dome Fit and managed at an outside facility ([facility]) Wireless Accessory Set up Fee Paid: No HISTORY: Nanette Monroy was seen for monitoring of the device/s. The patient reported: * No pain, redness, swelling at magnet site. * Microphone covers last changed a few weeks ago * Wearing sound processor:all waking hours * Questions about how to get new batteries when needed. Quyen Tee was requesting batteries for him * Would like to continue to have Dr. Fox as his managing ENT instead of establishing with [facility] * Feels he hears better with his new hearing aid. Would like to have this managed at [facility] AIDED AUDIOMETRIC TESTING: Audiologic testing was completed in the sound field with the speech processor(s) at user settings (Program: 1; Volume: 6; Sensitivity: 12.) before programming. See the [facility] Audiogram for obtained thresholds. Speech perception testing was completed at 60 dump motor operator using recorded stimuli in the sound field at 0 degrees azimuth. NOTE: The contralateral ear was plugged and muffed or masked during testing. The following testing and results were obtained: Btacqgnin-Npzvfyo-Hetitkowz Words (CNC) Test Condition List # Phonemes Words Clinically significant change compared to previous visit? Clinically significant change compared to BEST? Right Ear 3 84% 72% Baseline Baseline Bimodal 8 92% 84% Baseline Baseline AZ BIO (quiet) Test Condition List # Score Clinically significant change compared to previous visit? Clinically significant change compared to BEST? Right Ear 2 80% Baseline Baseline Bimodal 7 91% Baseline Baseline AZ BIO (+10 SNR) Test Condition List # Score Clinically significant change compared to previous visit? Clinically significant change compared to BEST? Right Ear 5 48% Baseline Baseline Bimodal 6 52% Baseline Baseline Summary: Aided detection obtained essentially in the expected range (20-30 dB HL) from 250-6000 Hz, with detection at 35 dB HL from 250-500 Hz and 8332-0452 Hz. Baseline speech measures obtained today demonstrate good benefit from right CI with slight bimodal benefit from use of bilateral devices. CONTRALATERAL HEARING AID PROGRAMMING/TROUBLESHOOTING: This patient was seen today for a Hearing Aid Check. Audiogram obtained from hearing aid fitting software, see below: Patient's hearing aid connected to software to verify patient had access to tap control, a feature he liked with his Phonak hearing aid. Confirmed tap control active. Patient's incoming settings were saved. No further programming changes made. COCHLEAR IMPLANT PROGRAMMING/TROUBLESHOOTING: Datalogging: Datalogging Right Ear Time in Use 14 hours Time in Speech 0.8 hours Coil-offs 0 RIGHT Programming: Headset pressure, magnet strength, and incision site were checked with no problems noted. Electrode impedances, used to monitor internal device function, were measured across the electrode array. Impedances were WNL across all active electrodes. Review of impedances obtained today with comparison to previous visit did not identify any remarkable changes or atypical measurements. Programming consisted of adjusting Threshold (T) levels based on detection obtained in the sound ruffin and setting Comfort (C) levels at loud, but comfortable using a loudness scale. Several active electrodes were measured and the rest were interpolated. Minimal changes made to C levels. The function/use of the programs created were discussed and are listed below: Right Ear Program/Map # Program Feature 1 53 SCAN (ADRO + ASC), SNR-NR,WNR 2 53 Noise (Zoom+ADRO+ASC) Active controls include: volume, telecoil and user controlled forward focus. Battery Life: Battery Life Estimation: Right: Disposable 36 hours Power Extend 19 hours Compact 9 hours SUMMARY AND RECOMMENDATIONS: Counseling Points: * Recommend contacting [facility] for purchasing new batteries * Continue to monitor magnet/incision site for pain, redness, swelling, scabbing etc. Should any of these occur discontinue use of device immediately and contact (more content not included)...[place] [id number] Note. MICRO - Microbiology PROCEDURE: Urine Culture [*1] SOURCE: Urine, Clean Catch BODY SITE: COLLECTED DATE/TIME: 06/15/2024 12:00 EST RECEIVED DATE/TIME: 06/15/2024 21:11 EST START DATE/TIME: 06/15/2024 21:11 EST FREE TEXT SOURCE: FINAL REPORTS Final Report [] Verified Date/Time/Personnel: 06/17/2024 08:40 EST >100,000 cfu/ml Escherichia coli PRELIMINARY REPORTS Preliminary Report [] Verified Date/Time/Personnel: 06/16/2024 11:48 EST >100,000 cfu/ml Escherichia coli ARIE to follow SUSCEPTIBILITY RESULTS Escherichia coli Antibiotic ARIE Dilut ARIE Inter Ampicillin <=8 Susceptible Ampicillin/ <=4/2 Susceptible Sulbactam Aztreonam <=4 Susceptible Cefazolin <=2 Susceptible Ceftazidime/ <=4 Susceptible Avibactam Ceftolozane/ <=2 Susceptible Tazobactam Ciprofloxacin <=0.25 Susceptible Ertapenem <=0.5 Susceptible Gentamicin <=2 Susceptible ID Panel Not Not Applicable Applicable Imipenem <=1 Susceptible Levofloxacin <=0.5 Susceptible Meropenem <=1 Susceptible Minocycline <=4 Susceptible Nitrofurantoin <=32 Susceptible Trimethoprim/ <=0.5/9.5 Susceptible Sulfa Performing Locations *1: This test was performed at: [facility], [address] [place] [address], [facility]- , [facility]10-07-2024 Telephone encounter Note* Telephone Encounter - Mathew Gudino - 04/16/2024 4:01 PM EDT Fit with THAYER- Phonak, recommended Nexia from resound. Ordered a demo for him to try. Coming in [facility] fit with demo. Questions about phone pairing to hearing aid THAYER through- has to May 21 to do exchange Jerrica West [facility]10-07-2024 Miscellaneous Notes* Telephone Encounter - Mathew Gudino - 04/16/2024 4:01 PM EDT Fit with THAYER- Phonak, recommended Nexia from resound. Ordered a demo for him to try. Coming in [facility] fit with demo. Questions about phone pairing to hearing aid THAYER through- has to May 21 to do exchange Jerrica West documented in this encounterKettering [facility] Hospital09-24-2024 History of Present illness Narrative* Anastasiya Fink AUD - 04/03/2024 10:30 AM EDT Head and Neck [place] Section of Allied Hearing, Speech and Balance Services COCHLEAR IMPLANT ADULT PROGRAMMING Name: Nanette Monroy [facility]#: [id number] Date of Service: April 03, 2024 Date of : 1945 Age: [age] year old COCHLEAR IMPLANT INFORMATION (see below for all device details) Updated: April 03, 2024 RIGHT ear: External Processor: Cochlear [employer] [id number] (N7) External Processor Cochlear [employer] Nucleus 7 (Upgraded Sep 2021) Processor SN [id number] Magnet Strength 1M Internal Device Cochlear CI 512 Inactive electrodes E6-7 Surgery Date March 2016 Initial activation date May [address] Fox LEFT ear: Phonak Audeo L90-RL with 2M brimmer blocker and med vented dome Fit and managed at an outside facility ([facility]) Wireless Accessory Set up Fee Paid: No HISTORY: Mr. Monroy was seen for establishing care of the device/s. The patient reported: * Previously seen by Dr. Tee for managing of his implant, last seen 1-2 years ago. She reachedout a year ago to update him that she would be retiring and that she would provide information on other clinics to schedule - but he never received any further information * Called [facility] and they recommended he schedule [facility] * Recently dropped processor and it stopped working. Reported he used his backup, and that he thought he had another processor that was unopened. Upon further exploration, patient thought cables wereprocessors. He replaced cable and had another replacement cable that was unopened. * Music does not sound good, feels things are out of tune. Does feel like he can hear music that ismore rhythmic better (eg rap music) * Feels cochlear implant has helped him hear voices significantly better * Recently updated hearing aid on the left ear (a few weeks ago), managed at [facility] in [place]. Water Taxi Operator there told him she did not want to make too many changes to his hearing aid programming until he had his implant reprogrammed * Has not been hearing well on the phone when using Bluetooth streaming to left hearing aid * Reported he received some insurance coverage ([facility] AARP supplement) towards his hearing aid, but put the rest on care credit. * Keeps track of changing arie covers, due to be changed next month. Has been much more pleased withN7 covers than the N6 * Last time he saw Dr. Tee, she changed his magnet from a 2 to 1 * No pain, redness, swelling at magnet site. * Wearing sound processor: All waking hours * Typically uses P1 or P2. Unsure of the difference between P3 and P4 * Often keeps the volume around 5 or 6 on P1 and at volume 2 on P2. * Hx COPD and on O2 AIDED AUDIOMETRIC TESTING: Deferred today due to time constraints. Will complete at follow-up visit CONTRALATERAL HEARING AID PROGRAMMING/TROUBLESHOOTING: Significant amount of time was dedicated to discussion of bimodal compatible hearing aids and benefits especially for phone connectivity. Provided brochure for Resound Nexia, but could also consider an Omnia or One. Recommend patient return to fitting chief sustainability officer to determine if hearing aid can be exchanged for a Resound device. If that clinic unable to work with Resound, offered for patient to return to [facility] for fitting of a Resound device. COCHLEAR IMPLANT PROGRAMMING/TROUBLESHOOTING: Dataloggin.3 hrs/day RIGHT Programming: Headset pressure, magnet strength, and incision site were checked with no problems noted. Electrode impedances, used to monitor internal device function, were measured across the electrode array. Impedances were WNL across all active electrodes. No previous impedance measurementsavailable for comparison. Programming consisted of setting Comfort (C) levels at loud, but comfortable using a loudness scale. Several active electrodes were measured and the rest were interpolated. Mapping completed based on previous P1, Map 49. Primarily increased more apical electrodes and decreased more basal electrodes. Following changes, patient reported sound was too echoey. Tilted C's 5 towards the left, which resolved this issue. The function/use of the programs created were discussed and are listed below: Right Ear Program/Map # Program Feature 1 51 SCAN (ADRO + ASC), SNR-NR,WNR 2 51 Restaurant (Beam+ADRO+ASC) 3 49 SCAN (ADRO + ASC), SNR-NR,WNR Prev. Preferred MAP Active controls include: volume, user controlled Forward Focus and telecoil. Battery Life: Rechargeable: 17 hours Disposable: 32 hours SUMMARY AND RECOMMENDATIONS: Assistive Technologies: The potential benefit of assistive devices such as compatible hearing aid for bimodal linking was reviewed. Counseling Points: * Patient will return to hearing aid chief sustainability officer to attempt to return Phonak hearing and and exchange for Resound. He was provided with contact number for Mathew Gudino, HIP coordinator, to reach out once he has further information on whether or not this can be done at his local chief sustainability officer office or should he want to purchase a hearing aid through [facility]. * Schedule follow-up for 2-3 months to follow-up on changes and complete aided testing * Patient aware he will need to schedule with otology at [facility] to get established for any paperwork for upgrades/repairs * Continue to monitor magnet/incision site for pain, redness, swelling, scabbing etc. Should any ofthese occur discontinue use of device immediately and contact the office. * Continue use of right processor and left hearing aid during all waking hours. Follow-up Programming: It was recommended that the patient return in 2-3 months for monitoring of auditory performance and potential programming needs. The center should be contacted if there are problems or concerns before that time. NOTE: It should be noted that the patient left the appointment with all the equipment. None of the patient's equipment was left in the Audiology Section of the Clinic. TOTAL TIME: 100 minutes Programming right 20 minutes Programming left 0 minutes Evaluation of auditory status 0 minutes Devon Ni, [facility] Clinical and Hearing Implant Water Taxi Operator [facility] NoteHNO ID: [id number] Author: ANASTASIYA FINK AUD Service: ? Author Type: Water Taxi Operator Type: Progress Notes Filed: 04/03/2024 12:58 Note Text: Head [facility] Neck [place] Section of Allied Hearing, Speech and Balance Services COCHLEAR IMPLANT ADULT PROGRAMMING Name: Nanette Monroy CCF#: [id number] Date of Service: April 03, 2024 Date of : 1945 Age: [age] year old COCHLEAR IMPLANT INFORMATION (see below for all device details) Updated: April 03, 2024 RIGHT ear: External Processor: Cochlear [employer] [id number] (N7) External Processor Cochlear [employer] Nucleus 7 (Upgraded Sep 2021) Processor SN [id number] Magnet Strength 1M Internal Device Cochlear CI 512 Inactive electrodes E6-7 Surgery Date March 2016 Initial activation date May [address] Fox LEFT ear: Phonak Audeo L90-RL with 2M brimmer blocker and med vented dome Fit and managed at an outside facility ([facility]) Wireless Accessory Set up Fee Paid: No HISTORY: Mr. Monroy was seen for establishing care of the device/s. The patient reported: * Previously seen by Dr. Tee for managing of his implant, last seen 1-2 years ago. She reached out a year ago to update him that she would be retiring and that she would provide information on other clinics to schedule - but he never received any further information * Called Cochlear and they recommended he schedule with [facility] * Recently dropped processor and it stopped working. Reported he used his backup, and that he thought he had another processor that was unopened. Upon further exploration, patient thought cables were processors. He replaced cable and had another replacement cable that was unopened. * Music does not sound good, feels things are out of tune. Does feel like he can hear music that is more rhythmic better (eg rap music) * Feels cochlear implant has helped him hear voices significantly better * Recently updated hearing aid on the left ear (a few weeks ago), managed at [facility] in [place]. Water Taxi Operator there told him she did not want to make too many changes to his hearing aid programming until he had his implant reprogrammed * Has not been hearing well on the phone when using Bluetooth streaming to left hearing aid * Reported he received some insurance coverage ([facility] AARP supplement) towards his hearing aid, but put the rest on care credit. * Keeps track of changing arie covers, due to be changed next month. Has been much more pleased with N7 covers than the N6 * Last time he saw Dr. Tee, she changed his magnet from a 2 to 1 * No pain, redness, swelling at magnet site. * Wearing sound processor: All waking hours * Typically uses P1 or P2. Unsure of the difference between P3 and P4 * Often keeps the volume around 5 or 6 on P1 and at volume 2 on P2. * Hx COPD and on O2 AIDED AUDIOMETRIC TESTING: Deferred today due to time constraints. Will complete at follow-up visit CONTRALATERAL HEARING AID PROGRAMMING/TROUBLESHOOTING: Significant amount of time was dedicated to discussion of bimodal compatible hearing aids and benefits especially for phone connectivity. Provided brochure for Resound Nexia, but could also consider an Omnia or One. Recommend patient return to fitting chief sustainability officer to determine if hearing aid can be exchanged for a Resound device. If that clinic unable to work with Resound, offered for patient to return to [facility] for fitting of a Resound device. COCHLEAR IMPLANT PROGRAMMING/TROUBLESHOOTING: Dataloggin.3 hrs/day RIGHT Programming: Headset pressure, magnet strength, and incision site were checked with no problems noted. Electrode impedances, used to monitor internal device function, were measured across the electrode array. Impedances were WNL across all active electrodes. No previous impedance measurements available for comparison. Programming consisted of setting Comfort (C) levels at loud, but comfortable using a loudness scale. Several active electrodes were measured and the rest were interpolated. Mapping completed based on previous P1, Map 49. Primarily increased more apical electrodes and decreased more basal electrodes. Following changes, patient reported sound was too echoey. Tilted C's 5 towards the left, which resolved this issue. The function/use of the programs created were discussed and are listed below: Right Ear Program/Map # Program Feature 1 51 SCAN (ADRO + ASC), SNR-NR,WNR 2 51 Restaurant (Beam+ADRO+ASC) 3 49 SCAN (ADRO + ASC), SNR-NR,WNR Prev. Preferred MAP Active controls include: volume, user controlled Forward Focus and telecoil. Battery Life: Rechargeable: 17 hours Disposable: 32 hours SUMMARY AND RECOMMENDATIONS: Assistive Technologies: The potential benefit of assistive devices such as compatible hearing aid for bimodal linking was reviewed. Counseling Points: * Patient will return to hearing aid chief sustainability officer to attempt to (more content not included)...[facility] Future Appointments Appointment Date:12/14/2021 08:30:00 AM Scheduled Provider:FERNANDEZ BAIG DO Location:[facility] Appointment Type:[facility] Evaluation note* Diagnosis Onset Date Resolution Status Chronic hypoxemic respiratory failure chronic COPD (chronic obstructive pulmonary disease) chronic BALDERAS (dyspnea on exertion) ac dustin Atherosclerotic heart diseas e of [place] coronary artery without angina pectoris chronic Hyperlipidemia chronic Ischemic cardiomyopathy [facility] Work Phone: Evaluation note* Diagnosis Onset Date Resolution Status Chronic hypoxemic respiratory failure chronic Stage 3 severe COPD by GOLD classification chronic 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 COPD (chronic obstructive pulmonary disease) chronic Hyperlipidemia chronic Ischemic cardiomyopathy [facility] Work Phone: Evaluation note* Diagnosis Bilateral hearing loss, unspecified hearing loss type- Primary Cochlear implant in place Other postprocedural status documented in this encounter [facility] note* Diagnosis Sensorineural hearing loss (SNHL) of 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 Other postprocedural status documented in this encounter [facility] note* Diagnosis Sensorineural hearing loss (SNHL) of 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 Other postprocedural status [facility] Author Rohan Henao [facility] Note Date/Time November 15, 2024 2:58pm [facility] Medical Records Department [address] [place] [id number] H&P Exam - Hospitalist 11/15/24 1345 MR#: [id number] Acct: [id number] Name: ELIANANANETTE Rep #:[id number] : 1945 79 From: Rohan Cortez PCP: Dr. Fernandez Baig DO Status:ADM IN [place]: [facility] CO947-5 HPI - General General Date of Admission: 11/15/24 Date of Service: 11/15/24 Chief Complaint: SOB worsening for 2 months. 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 Patient was on 4 L of home oxygen at rest but for last 2 months he has been using 6 L at rest. Patient was seen in the pulmonary office 2 months ago and neo prednisone 10 mg and antibiotic 3 times a week but is still did not improve. In ED, patient is tachypneic 30 to 34/min and on 5 L oxygen. He only had IV Solu-Medrol 125 mg in ED. Chest CTA was done and is discussed assessment plan. 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083 %) solution for nebulization mL albuterol sulfate 90 mcg/actuation 2 puff inhalation Q 4H PRN 08/14/24 Unknown Rx aerosol inhaler shortness of breath or wheez ing #8.5 grams arformoterol 15 mcg/2 mL solution 15 mcg (2 mL) inhala tion BID #120 08/14/24 11/14/24 Rx for nebulization (Brovana) mL budesonide 0.5 mg/2 mL suspension 0.5 mg (2 mL) inhala tion BID #120 08/14/24 11/14/24 Rx for nebulization mL guaifenesin 1,200 mg tablet, 1,200 mg PO Q12H #60 tabs 08/14/24 11/14/24 Rx extended release 12 hr metoprolol succinate 25 mg 12.5 mg (1/2 x 25 mg) PO DA RENÉ #45 08/20/24 11/14/24 Rx tablet,extended release 24 hr TABLETS rosuvastatin 20 mg tablet 20 mg PO DAILY #90 tabs 08/1111/14/24 Rx ipratropium 0.5 mg-albuterol 3 mg 3 ml inhalation ALMAZ Y 09/11/24 11/14/24 History (2.5 mg base)/3 mL nebulization soln isosorbide mononitrate 30 mg 30 mg PO DAILY #90 tabs 0 09/11/24 11/14/24 Rx tablet,extended release 24 hr losartan 25 mg tablet 25 mg PO BID #180 tabs 09/1111/14/24 Rx prednisone 10 mg tablet 10 mg PO DAILY 11/15/2402/01 History Allergy/AdvReac Type Severity Reaction Status Date / Time tiotropium (From Spiriva AdvReac Severe Decreased Verified 11/15/24 10:01 with HandiHaler) Urination cyanocobalamin (vitamin B12) AdvReac Other Verified 11/15/24 10:01 Family History Sister CAD (coronary artery disease) Hx of CABG Sister Breast cancer Brother COPD (chronic obstructive pulmonary disease) Surgical History Presence of aortocoronary bypass graft (~08/01/01) History of cochlear implant Postsurgical percutaneous transluminal coronary angioplasty (PTCA) status (~1989) Aortocoronary bypass status (~08/01/01) History of vasectomy Social History Smoking Status: Former smoker how long ago did patient quit smokin + years ago second hand exposure: No alcohol intake: current alcohol intake frequency: a few times a week substance use type: does not use caffeine: Yes ROS ROS Narrative Constitutional: Reports fatigue and weakness. No fever. No dyspnea at rest. HEENT: Right ear cochlear implant. Left hearing aid. Reports systems reviewed and no addt'l complaints, except as documented Respiratory/Chest: Hide described in HPI. CVS: Denies chest pressure. Intermittent pleuritic chest pain on coughing/dyspnea. CAD s/p three-vessel CABG Gastrointestinal: Denies coffee ground emesis, hematemesis or vomiting Genitourinary: Denies burning urination or new urinary tract symptoms Musculoskeletal: Denies acute joint pain or limited range of motion. No acute injury Neurologic: Denies seizure-like symptoms. skin: No ulcer. No rash Endocrinology: Reports systems reviewed and no addt'l complaints, except as documented Hematologic/Lymphatic: Reports systems reviewed and no addt'l complaints, exceptas documented Rest 14 ROS are negative except as mentioned in HPI Vital Signs Vital Signs Vital Signs: 11/15/24 10:11/15/24 10:00 11/15/24 10:04 Temperature 98 F 98.1 F Temperature Source Temporal Oral Pulse Rate 86 80 Respiratory Rate 32 H 34 H Respiratory Effort Respiratory Depth Respiratory Pattern Blood Pressure 148/77 H 155/82 H Blood Pressure Mean 100 106 Pulse Ox 91 93 88 Oxygen Delivery Method Nasal Cannula Nasal Cannula Nasal Cannula Oxygen Flow Rate (L/min) 5 5 5 11/15/24 10:04 11/15/24 10:27 11/15/24 11:04 Temperature 98.7 F Temperature Source Oral Pulse Rate 74 Respiratory Rate 16 Respiratory Effort Short of Breath Respiratory Depth Shallow Respiratory Pattern Tachypnea Blood Pressure 134/76 H Blood Pressure Mean 95 Pulse Ox 97 Oxygen Delivery Method Nasal Cannula Nasal Cannula Room Air Oxygen Flow Rate (L/min) 5 11/15/24 12:00 11/15/24 12:00 11/15/24 13:00 Temperature 98.7 F 98.7 F Temperature Source Oral Oral Pulse Rate 70 75 Respiratory Rate 70 H 20 H 23 H Respiratory Effort Respiratory Depth Respiratory Pattern Blood Pressure 123/69 H 123/69 H 130/71 H Blood Pressure Mean 87 87 90 Pulse Ox 94 93 Oxygen Delivery Method Nasal Cannula Nasal Cannula Oxygen Flow Rate (L/min) 5 11/15/24 13:00 11/15/24 13:05 Temperature 98.7 F Temperature Source Pulse Rate 83 Respiratory Rate 21 H Respiratory Effort Respiratory Depth Respiratory Pattern Blood Pressure 130/71 H 130/71 H Blood Pressure Mean 90 90 Pulse Ox 93 Oxygen Delivery Method Oxygen Flow Rate (L/min) Physical Exam Narrative General: Alert, Oriented x3, Cooperative HEENT moderate hearing loss on hearing aids.: Atraumatic, PERRLA, EOMI, Normocephalic. Oral: Oral mucosa dry. No Gingival or Mucosal Lesions/ Ulcerations Neck: Supple, No JVD, Negative Carotid Bruits Chest wall/Lungs: Air entry severely diminished in all lung montes. Bilateral expiratory rhonchi. Cardiovascular: Regular rate and rhythm, Normal S1,S2, systolic murmur. CABG Abdomen: Bowel Sounds Present, Soft, Non Tender, Non-Distended : No dysuria. No renal angle tenderness. No suprapubic tenderness. Extremities: No edema, Capillary Refill Less than 3 Seconds Skin: No rashes, No breakdown Musculoskeletal: No Tenderness to Palpation of Joints or Extremities. ROM intact. Neurological: Cranial nerves II-XII grossly intact, DTR 2+/4. No acute focal neurological deficit. Psych/Mental Status: Normal Affect, Appropriate. Results Lab / Micro Data 11/15/24 10:13 11/15/24 10:13 Labs: Laboratory Results - last 24 hr 11/15/24 10:13: WBC 20.1 H, RBC 4.43 L, Hgb 14.0, Hct 42.3, MCV 95.5 H, MCH 31.6, MCHC 33.1, RDW Std Deviation 47.7 H, RDW Coeff of Crystal 13.5, Plt Count 221,MPV 9.4, Immature Gran % (Auto) 0.400, Neut % (Auto) 86.4 H, Lymph % (Auto) 6.7 L, Burt % (Auto) 6.1, Eos % (Auto) 0.2, Baso % (Auto) 0.2, Absolute Neuts (auto)17.3 H, Absolute Lymphs (auto) 1.35, Nucleated RBC % 0, D-Dimer Quant (PE/DVT) 0.90 H*, Sodium 139, Potassium 4.3, Chloride 102, Carbon Dioxide 24.4, Anion Gap12, BUN 12, Creatinine 0.87, Est GFR (MDRD) Non-Af 87, BUN/Creatinine Ratio 14.0, Glucose 116 H, Calcium 8.8, Troponin T High Sens 25 H 11/15/24 12:25: Troponin T Hi Sens 2 Hr 21 Imaging Radiology Impression Chest X-Ray 11/15/24 10:27 IMPRESSION: No active cardiopulmonary disease. Parenchymal scarring and/or subsegmental atelectasis, left lower lobe. Reading Location: [facility] Chest CTA 11/15/24 11:35 IMPRESSION: No signs of pulmonary embolism. Centrilobular emphysematous changes. Ground-glass opacities are scattered throughout the lower lobes. Can not exclude mild inflammation. Bronchiectatic changes along with bronchial thickening primarily in the lower lobes. Reading Location: [facility] Assessment & Plan Assessment/Plan (1) Acute on chronic hypoxic respiratory failure: (2) COPD exacerbation: PLAN: Plan This 79-year-old gentleman with end-stage COPD is being admitted for COPD exacerbation 1. Acute on chronic hypoxic respiratory failure due to COPD exacerbation: Patient is being admitted in the PCU. Chest CTA shows no signs of pulmonary embolism but groundglass opacities scattered throughout the lower lobes. Bronchiectatic changes along with bronchial thickening primarily in the lower lobes. With bronchiectasis changes lower lobes, started on IV Zosyn and Zithromax. Project Asst consult. Pneumonia workup ordered. ABG 7.4 on 5 L of oxygen. Start on Airvo as patient is respiratory muscle fatigued and mild going ventilatory failure. Patient is being managed on scheduled bronchodilator, IV Solu-Medrol, Mucinex?DM, Tessalon Perles , incentive spirometry and Pep. 2. Bronchiectasis and end-stage COPD: Chest x-ray and CT images reviewed. 3. CAD status post CABG: Patient home medications continued. On baby aspirin, Imdur, losartan, metoprolol and rosuvastatin. 4. Hypertension and dyslipidemia: As mentioned above. Blood pressure in normalrange. 5. Chronic tobacco use, patient quit about a year ago 6. DVT prophylaxis high risk: Enoxaparin 40 mL subcu daily. Living will/advanced directive/end of life care: Patient does not living will oradvanced directive. His girlfriend who lives for many years is next to kin and present to ED. After discussion of benefits/risks procedures involved with full code, DNR CC arrest and DNR CC, the patient opted for DNR CC arrest with nointubation Patient doesn't want artificial life support including intubation, tube feed, ventilator and/chest compression, and DC shock if needed. Patient is unclear about central line/PICC line or vasopressor if needed. Total time spent in [id number] encounter in discussion of advanced directive 17 minutes. Laboratory Results 11/15/24 10:13: WBC 20.1 H, RBC 4.43 L, Hgb 14.0, Hct 42.3, MCV 95.5 H, MCH 31.6, MCHC 33.1, RDW Std Deviation 47.7 H, RDW Coeff of Crystal 13.5, Plt Count 221,MPV 9.4, Immature Gran % (Auto) 0.400, Neut % (Auto) 86.4 H, Lymph % (Auto) 6.7 L, Burt % (Auto) 6.1, Eos % (Auto) 0.2, Baso % (Auto) 0.2, Absolute Neuts (auto)17.3 H, Absolute Lymphs (auto) 1.35, Nucleated RBC % 0, D-Dimer Quant (PE/DVT) 0.90 H*, Sodium 139, Potassium 4.3, Chloride 102, Carbon Dioxide 24.4, Anion Gap12, BUN 12, Creatinine 0.87, Est GFR (MDRD) Non-Af 87, BUN/Creatinine Ratio 14.0, Glucose 116 H, Calcium 8.8, Magnesium Pending, Troponin T High Sens 25 H 11/15/24 12:25: Troponin T Hi Sens 2 Hr 21 11/15/24 14:04: Specimen Type ART, Sample Site R Radial, pH 7.43, Bicarbonate Actual 26.6 H, Total CO2 28, Base Excess 2, O2 Saturation 97, O2 % 5.0, ABG qZZ869.9, ABG pO2 86, Maria R Test Positive, O2 Delivery Device Cannula, Vent Mode Notentered 11/15/24 14:30: Troponin T Hi Sens 4Hr Pending Clinical Impression(s) from Imaging Studies Chest X-Ray 11/15/24 10:27 IMPRESSION: No active cardiopulmonary disease. Parenchymal scarring and/or subsegmental atelectasis, left lower lobe. Reading Location: [facility] Chest CTA 11/15/24 11:35 IMPRESSION: No signs of pulmonary embolism. Centrilobular emphysematous changes. Ground-glass opacities are scattered throughout the lower lobes. Can not exclude mild inflammation. Bronchiectatic changes along with bronchial thickening primarily in the lower lobes. Reading Location: [facility] Charges/Coding Visit Charges Inpatient E&M: 88499 Init Hosp L3 Procedures Hospitalists Procedures: 15735 Advncd Care Plan 30 Min 11/15/24 1458 <Electronically signed by Rohan Henao MD> Cosigner Signature (if applicable): CC: Dr. Rohan Henao MD; Dr. Fernandez Baig, DO~ Signed [facility] Work Phone: Hospital course Narrative No data available for this section [facility] Hospital Discharge instructions No data available for this section [facility] Reason for referral (narrative)No reason for referral information availableWSelect [facility] Work Phone: Chief Complaint and Reason for Visit Chief Complaint 6 M FU 6 m fu Reason for Visit Chronic hypoxemic re spiratory failure COPD (chronic obstructive pulmonary disease) BALDERAS (dyspnea on exertion) Atherosclerotic heart disease of [place] coronary artery without angina pectoris Hyperlipidemia Ischemic cardiomyopathy Chief Complaint 6 M FU 1 Y FU/PREV PFM INT LABS Reason for Visit Chronic hypoxemic re spiratory failure Stage 3 severe COPD by GOLD classification Tobacco dependence in remission Atherosclerotic heart disease of [place] coronary artery without angina pectoris COPD (chronic obstructive pulmonary disease) Hyperlipidemia Ischemic cardiomyopathy Chief Complaint Admit Date 6 M FU August 14, 2024 9 :29am 1 Y FU September 11, 2024 10:1 0am 1 M F/U September 12, 2024 9:16 am COPD EXA November 15, 2024 1:43pm COPD EXA November 15, 2024 1:45pm Reason for Visit Admit Date Chronic hypoxemic respiratory failure Fe bruary 2024 9:29am Stage 3 severe COPD by GOLD classificati on August 14, 2024 9:29am Atherosclerotic heart diseas e of [place] coronary artery without angina pectoris September 11, 2024 10:10am COPD (chronic obstructive pulmonary dise ase) September 11, 2024 10:10am Hyperlipidemia September 11, 2024 10:1 0am Ischemic cardiomyopathy September 11, 2024 10:10am Chronic hypoxemic respiratory failure [facility] 2024 9:16am Stage 3 severe COPD by GOLD classificati on September 12, 2024 9:16am Acute on chronic hypoxic respiratory makayla terare November 15, 2024 1:43pm COPD exacerbation November 15, 2024 1:43pm Chief Complaint Admit Date 6 M FU August 14, 2024 9 :29am 1 Y FU September 11, 2024 10:1 0am 1 M F/U September 12, 2024 9:16 am COPD EXA November 15, 2024 1:43pm COPD EXA November 15, 2024 1:45pm COPD EXA November 16, 2024 8:49am COPD EXA November 16, 2024 8:59am COPD EXA November 17, 2024 9:34a m COPD EXA November 18, 2024 11:40 am COPD EXA November 19, 2024 10:19 am Family History No Family History Records Found Relationship Condition Age at Onset Recorded Date/T charleen sister Coronary artery disease Unknown History of coronary artery bypass surgery Unknown sister Malignant neoplasm of breast Unknown brother Chronic obstructive pulmonary disease Unk nown Advance Directives No Advanced Directives Records Found Advance Directive Response Recorded Date/ Time Advance Directives Yes December 14 3:51pm Living Will Yes December 14, 2021 3 :51pm Power of Risk Reduction Counselor Yes December 14, 2021 3:51pm Advance Directive Response Recorded Date/ Time Living Will Yes December 14, 2021 3 :51pm Do you have a Healthcare Power of Risk Reduction Counselor? Yes December 14, 2021 3:51pm Do you have a Healthcare Power of Risk Reduction Counselor? No November 15, 2024 10:04am Advance Directives Yes December 14 3:51pm Advance Directive Response Recorded Date/ Time Living Will Yes December 14, 2021 3 :51pm Do you have a Healthcare Power of Risk Reduction Counselor? Yes December 14, 2021 3:51pm Do you have a Healthcare Power of Risk Reduction Counselor? Yes November 15, 2024 3:09pm Name of Medical Power of Risk Reduction Counselor itzel [email or web address] November 15, 2024 3:09pm Advance Directives Yes December 14 3:51pm Summary Purpose Additional Source Comments Goals (unrecognized section and content) Goals may be documented in a n alternate section (unrecognized sect ion and content) No Status Records FoundNo Status Records FoundNo Status Records FoundNo Status Records FoundNo Status Records Found INFORMATION SOURCE (unrecogn ized section and content) DATE CREATED AUTHOR 07/11/2023 [facility] ([place]) DATE CREATED AUTHOR AUTHOR'S ORGANIZ ATION 06/28/2024 [facility] DATE CREATED AUTHOR AUTHOR'S ORGANIZ ATION 07/22/2024 [facility] DATE CREATED AUTHOR AUTHOR'S ORGANIZ ATION 11/14/2024 [facility] DATE CREATED AUTHOR AUTHOR'S ORGANIZ ATION 12/04/[address] [facility] Care Teams (unrecognized sec tion and content) Team Status: Active Member Role Status Dates Dr. Fernandez Baig DO Family Provider Active Dr. Fernandez Baig DO Primary Care Provider Active Team Status: Inactive Member Role Status Dates Dr. Fernandez Baig DO Primary Care Provider, Referrin g Provider Active Azucena Bethea PARTS IDENTIFICATION TECHNICIAN, PARTS IDENTIFICATION TECHNICIAN-C Attending Provider Active Team Status: Inactive Member Role Status Dates Dr. Fernandez Baig DO Primary Care Provider, Referrin g Provider Active Dr. Wilberto Tillman MD Attending Provider Active Team Status: Inactive Member Role Status Dates Dr. Fernandez Baig DO Primary Care Provider Active Dr. Wilberto Tillman MD Attending Provider, Referring Provider Active Team Status: Active Member Role Status Dates Dr. Fernandez Baig DO Primary Care Provider Active Team Status: Inactive Member Role Status Dates Dr. Fernandez Baig DO Primary Care Provider Active Start: August 14, 2024 End: August 14, 2024 Dr. Fernandez Baig DO Referring Provider Active Start: August 14, 2024 End: August 14, 2024 Azucena Bethea NP, PARTS IDENTIFICATION TECHNICIAN-C Attending Provider Active Start: August 14, 2024 End: August 14, 2024 Team Status: Inactive Member Role Status Dates Dr. Fernandez Baig DO Primary Care Provider Active Start: September 11, 2024 End: September 11, 2024 Dr. Fernandez Baig DO Referring Provider Active Start: September 11, 2024 End: September 11, 2024 Yung Huntley PARTS IDENTIFICATION TECHNICIAN, PARTS IDENTIFICATION TECHNICIAN-C Attending Provider Active S tart: September 11, 2024 End: September 11, 2024 Team Status: Inactive Member Role Status Dates Dr. Fernandez Baig DO Primary Care Provider Active Start: September 12, 2024 End: September 12, 2024 Dr. Fernandez Baig DO Referring Provider Active Start: September 12, 2024 End: September 12, 2024 Azucena Bethea PARTS IDENTIFICATION TECHNICIAN, PARTS IDENTIFICATION TECHNICIAN-C Attending Provider Active Start: September 12, 2024 End: September 12, 2024 Team Status: Active Member Role Status Dates Dr. Fernandez Baig DO Primary Care Provider Active Start: November 15, 2024 Dr. Beau Costa DO Emergency Provider Active Start : November 15, 2024 Dr. Rohan Henao MD Admit Provider Active Sta rt: November 15, 2024 Dr. Rohan Henao MD Attending Provider Active Start: November 15, 2024 Dr. Jay Cueva MD Other Provider Active Start: November 15, 2024 Dr. Jermaine Thapa MD Other Provider Active Start: November 15, 2024 Dr. Ferdinand Shearer MD Other Provider Active Star t: November 15, 2024 Dr. Harsh Manzo DO Other Provider Active Start : November 15, 2024 Dr. Khai Kaye MD Other Provider Active Sta rt: November 15, 2024 Dr. Roberto Stark MD Other Provider Active St art: November 15, 2024 Dr. Tre Cyr MD Other Provider Active S tart: November 15, 2024 Dr. Bette Saez MD Other Provider Active Start: November 15, 2024 Dr. Carlos Sanchez MD Other Provider Active Start : November 15, 2024 Dr. Rj Garcia MD Other Provider Active Start: November 15, 2024 Dr. Jb Cooley MD Other Provider Active Start : November 15, 2024 Dr. Ginny Brock MD Other Provider Active Star t: November 15, 2024 Dr. Claudine Quezada MD Other Provider Active Sta rt: November 15, 2024 Dr. Desiree Crook MD Other Provider Active Sta rt: November 15, 2024 Dr. Brian Garcia MD Other Provider Active Star t: November 15, 2024 Dr. Tano Romero MD Other Provider Active St art: November 15, 2024 Dr. Yonny Cabrales MD Other Provider Active Star t: November 15, 2024 Dr. Slade Saini DO Other Provider Active St art: November 15, 2024 Dr. Jakob Gallegos MD Other Provider Active Start: November 15, 2024 Dr. Laura Sam MD Other Provider Active St art: November 15, 2024 Dr. Doug Lai , DO Other Provider Active Start: November 15, 2024 Dr. Yusuf Stearns MD Other Provider Active Start: November 15, 2024 Dr. Alexi Gurrola MD Other Provider Active Star t: November 15, 2024 Dr. Klaus Bardales MD Other Provider Active Sta rt: November 15, 2024 Azucena Bethea NP, PARTS IDENTIFICATION TECHNICIAN-C Other Provider Active Start: November 15, 2024 Mathew Low , PARTS IDENTIFICATION TECHNICIAN-C Other Provider Active St art: November 15, 2024 Team Status: Active Member Role Status Dates Dr. Fernandez Baig , DO Primary Care Provider Active Start: November 15, 2024 Dr. Beau Costa , DO Emergency Provider Active Start : November 15, 2024 Dr. Rohan Henao MD Admit Provider Active Sta rt: November 15, 2024 Dr. Rohan Henao MD Attending Provider Active Start: November 15, 2024 Dr. Rohan Henao MD Other Provider Active Sta rt: November 15, 2024 Team Status: Inactive Member Role Status Dates Dr. Fernandez Baig , DO Primary Care Provider Active Start: November 15, 2024 End: November 19, 2024 Dr. Beau Costa , DO Emergency Provider Active Start : November 15, 2024 End: November 19, 2024 Dr. Rohan Henao MD Admit Provider Active Sta rt: November 15, 2024 End: November 19, 2024 Dr. Rohan Henao MD Attending Provider Active Start: November 15, 2024 End: November 19, 2024 Dr. Jay Cueva MD Other Provider Active Start: November 15, 2024 End: November 19, 2024 Dr. Jermaine Thapa MD Other Provider Active Start: November 15, 2024 End: November 19, 2024 Dr. Ferdinand Shearer MD Other Provider Active Star t: November 15, 2024 End: November 19, 2024 Dr. Harsh Manzo , Other Provider Active Start : November 15, 2024 End: November 19, 2024 Dr. Khai Kaye MD Other Provider Active Sta rt: November 15, 2024 End: November 19, 2024 Dr. Roberto Stark MD Other Provider Active St art: November 15, 2024 End: November 19, 2024 Dr. Tre Cyr MD Other Provider Active S tart: November 15, 2024 End: November 19, 2024 Dr. Bette Saez MD Other Provider Active Start: November 15, 2024 End: November 19, 2024 Dr. Carlos Sanchez MD Other Provider Active Start : November 15, 2024 End: November 19, 2024 Dr. Rj Garcia MD Other Provider Active Start: November 15, 2024 End: November 19, 2024 Dr. Jb Cooley MD Other Provider Active Start : November 15, 2024 End: November 19, 2024 Dr. Ginny Brock MD Other Provider Active Star t: November 15, 2024 End: November 19, 2024 Dr. Claudine Quezada MD Other Provider Active Sta rt: November 15, 2024 End: November 19, 2024 Dr. Desiree Crook MD Other Provider Active Sta rt: November 15, 2024 End: November 19, 2024 Dr. Brian Garcia MD Other Provider Active Star t: November 15, 2024 End: November 19, 2024 Dr. Tano Romero MD Other Provider Active St art: November 15, 2024 End: November 19, 2024 Dr. Yonny Cabrales MD Other Provider Active Star t: November 15, 2024 End: November 19, 2024 Dr. Slade Saini , Other Provider Active St art: November 15, 2024 End: November 19, 2024 Dr. Jakob Gallegos MD Other Provider Active Start: November 15, 2024 End: November 19, 2024 Dr. Laura Sam MD Other Provider Active St art: November 15, 2024 End: November 19, 2024 Dr. Doug Lai , Other Provider Active Start: November 15, 2024 End: November 19, 2024 Dr. Yusuf Stearns MD Other Provider Active Start: November 15, 2024 End: November 19, 2024 Dr. Alexi Gurrola MD Other Provider Active Star t: November 15, 2024 End: November 19, 2024 Dr. Klaus Bardales MD Other Provider Active Sta rt: November 15, 2024 End: November 19, 2024 Azucena Bethea PARTS IDENTIFICATION TECHNICIAN, PARTS IDENTIFICATION TECHNICIAN-C Other Provider Active Start: November 15, 2024 End: November 19, 2024 Mathew Low , PARTS IDENTIFICATION TECHNICIAN-C Other Provider Active St art: November 15, 2024 End: November 19, 2024 Dr. Khai Heart , DO Other Provider Active Sta rt: November 15, 2024 End: November 19, 2024 Dr. Constanza Shearer MD Other Provider Active Start : November 15, 2024 End: November 19, 2024 Dr. Bhavana Tellez MD Other Provider Active St art: November 15, 2024 End: November 19, 2024 Jenny Tijerina NP-C Other Provider Active Sta rt: November 15, 2024 End: November 19, 2024 Naya Livingston NP, PARTS IDENTIFICATION TECHNICIAN-C Other Provider Active Start: November 15, 2024 End: November 19, 2024 CARMELITA Vasquez Other Provider Active Start: M 2024 End: November 19, 2024 Team Status: Active Member Role Status Dates Dr. Fernandez Baig , DO Primary Care Provider Active Start: November 16, 2024 Dr. Beau Costa , DO Emergency Provider Active Start : November 16, 2024 Dr. Rohan Henao MD Admit Provider Active Sta rt: November 16, 2024 Dr. Rohan Henao MD Other Provider Active Sta rt: November 16, 2024 Dr. Jay Cueva MD Other Provider Active Start: November 16, 2024 Dr. Jermaine Thapa MD Other Provider Active Start: November 16, 2024 Dr. Ferdinand Shearer MD Other Provider Active Star t: November 16, 2024 Dr. Harsh Manzo DO Attending Provider Active S tart: November 16, 2024 Dr. Harsh Manzo , Other Provider Active Start : November 16, 2024 Dr. Khai Kaye MD Other Provider Active Sta rt: November 16, 2024 Dr. Roberto Stark MD Other Provider Active St art: November 16, 2024 Dr. Tre Cyr MD Other Provider Active S tart: November 16, 2024 Dr. Bette Saez MD Other Provider Active Start: November 16, 2024 Dr. Carlos Sanchez MD Other Provider Active Start : November 16, 2024 Dr. Rj Garcia MD Other Provider Active Start: November 16, 2024 Dr. Jb Cooley MD Other Provider Active Start : November 16, 2024 Dr. Ginny Brock MD Other Provider Active Star t: November 16, 2024 Dr. Claudine Quezada MD Other Provider Active Sta rt: November 16, 2024 Dr. Desiree Crook MD Other Provider Active Sta rt: November 16, 2024 Dr. Brian Garcia MD Other Provider Active Star t: November 16, 2024 Dr. Tano Romero MD Other Provider Active St art: November 16, 2024 Dr. Yonny Cabrales MD Other Provider Active Star t: November 16, 2024 Dr. Slade Saini , Other Provider Active St art: November 16, 2024 Dr. Jakob Gallegos MD Other Provider Active Start: November 16, 2024 Dr. Laura Sam MD Other Provider Active St art: November 16, 2024 Dr. Doug Lai DO Other Provider Active Start: November 16, 2024 Dr. Yusuf Stearns MD Other Provider Active Start: November 16, 2024 Dr. Alexi Gurrola MD Other Provider Active Star t: November 16, 2024 Dr. Klaus Bardales MD Other Provider Active Sta rt: November 16, 2024 Azucena Bethea NP, PARTS IDENTIFICATION TECHNICIAN-C Other Provider Active Start: November 16, 2024 Mathew Low , [place]-C Other Provider Active St art: November 16, 2024 Team Status: Active Member Role Status Dates Dr. Fernandez Baig DO Primary Care Provider Active Start: November 16, 2024 Dr. Beau Costa DO Emergency Provider Active Start : November 16, 2024 Dr. Rohan Henao MD Admit Provider Active Sta rt: November 16, 2024 Dr. Rohan Henao MD Attending Provider Active Start: November 16, 2024 Dr. Rohan Henao MD Other Provider Active Sta rt: November 16, 2024 Dr. Jay Cueva MD Other Provider Active Start: November 16, 2024 Dr. Jermaine Thapa MD Other Provider Active Start: November 16, 2024 Dr. Ferdinand Shearer MD Other Provider Active Star t: November 16, 2024 Dr. Harsh Manzo Other Provider Active Start : November 16, 2024 Dr. Khai Kaye MD Other Provider Active Sta rt: November 16, 2024 Dr. Roberto Stark MD Other Provider Active St art: November 16, 2024 Dr. Tre Cyr MD Other Provider Active S tart: November 16, 2024 Dr. Bette Saez MD Other Provider Active Start: November 16, 2024 Dr. Carlos Sanchez MD Other Provider Active Start : November 16, 2024 Dr. Rj Garcia MD Other Provider Active Start: November 16, 2024 Dr. Jb Cooley MD Other Provider Active Start : November 16, 2024 Dr. Ginny Brock MD Other Provider Active Star t: November 16, 2024 Dr. Claudine Quezada MD Other Provider Active Sta rt: November 16, 2024 Dr. Desiree Crook MD Other Provider Active Sta rt: November 16, 2024 Dr. Brian Garcia MD Other Provider Active Star t: November 16, 2024 Dr. Tano Romero MD Other Provider Active St art: November 16, 2024 Dr. Yonny Cabrales MD Other Provider Active Star t: November 16, 2024 Dr. Slade Saini , Other Provider Active St art: November 16, 2024 Dr. Jakob Gallegos MD Other Provider Active Start: November 16, 2024 Dr. Laura Sam MD Other Provider Active St art: November 16, 2024 Dr. Doug Lai DO Other Provider Active Start: November 16, 2024 Dr. Yusuf Stearns MD Other Provider Active Start: November 16, 2024 Dr. Alexi Gurrola MD Other Provider Active Star t: November 16, 2024 Dr. Klaus Bardales MD Other Provider Active Sta rt: November 16, 2024 Azucena Bethea NP, PARTS IDENTIFICATION TECHNICIAN-C Other Provider Active Start: November 16, 2024 Mathew Low NP-C Other Provider Active St art: November 16, 2024 Team Status: Active Member Role Status Dates Dr. Fernandez Baig , Primary Care Provider Active Start: November 16, 2024 Dr. Dario Bar MD Attending Provider Active Start: November 16, 2024 Team Status: Active Member Role Status Dates Dr. Fernandez Baig , DO Primary Care Provider Active Start: November 17, 2024 Dr. Beau Costa , DO Emergency Provider Active Start : November 17, 2024 Dr. Rohan Henao MD Admit Provider Active Sta rt: November 17, 2024 Dr. Rohan Henao MD Attending Provider Active Start: November 17, 2024 Dr. Rohan Henao MD Other Provider Active Sta rt: November 17, 2024 Dr. Jay Cueva MD Other Provider Active Start: November 17, 2024 Dr. Jermaine Thapa MD Other Provider Active Start: November 17, 2024 Dr. Ferdinand Shearer MD Other Provider Active Star t: November 17, 2024 Dr. Harsh Manzo , Other Provider Active Start : November 17, 2024 Dr. Khai Kaye MD Other Provider Active Sta rt: November 17, 2024 Dr. Roberto Stark MD Other Provider Active St art: November 17, 2024 Dr. Tre Cyr MD Other Provider Active S tart: November 17, 2024 Dr. Bette Saez MD Other Provider Active Start: November 17, 2024 Dr. Carlos Sanchez MD Other Provider Active Start : November 17, 2024 Dr. Rj Garcia MD Other Provider Active Start: November 17, 2024 Dr. Jb Cooley MD Other Provider Active Start : November 17, 2024 Dr. Ginny Brock MD Other Provider Active Star t: November 17, 2024 Dr. Claudine Quezada MD Other Provider Active Sta rt: November 17, 2024 Dr. Desiree Crook MD Other Provider Active Sta rt: November 17, 2024 Dr. Brian Garcia MD Other Provider Active Star t: November 17, 2024 Dr. Tano Romero MD Other Provider Active St art: November 17, 2024 Dr. Yonny Cabrales MD Other Provider Active Star t: November 17, 2024 Dr. Slade Saini DO Other Provider Active St art: November 17, 2024 Dr. Jakob Gallegos MD Other Provider Active Start: November 17, 2024 Dr. Laura Sam MD Other Provider Active St art: November 17, 2024 Dr. Doug Lai , Other Provider Active Start: November 17, 2024 Dr. Yusuf Stearns MD Other Provider Active Start: November 17, 2024 Dr. Alexi Gurrola MD Other Provider Active Star t: November 17, 2024 Dr. Klaus Bardales MD Other Provider Active Sta rt: November 17, 2024 Azucena Bethea PARTS IDENTIFICATION TECHNICIAN, PARTS IDENTIFICATION TECHNICIAN-C Other Provider Active Start: November 17, 2024 Mathew Low , PARTS IDENTIFICATION TECHNICIAN-C Other Provider Active St art: November 17, 2024 Dr. Khai Heart , Other Provider Active Sta rt: November 17, 2024 Dr. Constanza Shearer MD Other Provider Active Start : November 17, 2024 Dr. Bhavana Tellez MD Other Provider Active St art: November 17, 2024 Jenny Tijerina , PARTS IDENTIFICATION TECHNICIAN-C Other Provider Active Sta rt: November 17, 2024 Naya Livingston PARTS IDENTIFICATION TECHNICIAN, PARTS IDENTIFICATION TECHNICIAN-C Other Provider Active Start: November 17, 2024 CARMELITA Vasquez Other Provider Active Start: 2024 Team Status: Active Member Role Status Dates Dr. Fernandez Baig , Primary Care Provider Active Start: November 18, 2024 Dr. Beau Costa , DO Emergency Provider Active Start : November 18, 2024 Dr. Rohan Henao MD Admit Provider Active Sta rt: November 18, 2024 Dr. Rohan Henao MD Attending Provider Active Start: November 18, 2024 Dr. Rohan Henao MD Other Provider Active Sta rt: November 18, 2024 Dr. Jay Cueva MD Other Provider Active Start: November 18, 2024 Dr. Jermaine Thapa MD Other Provider Active Start: November 18, 2024 Dr. Ferdinand Shearer MD Other Provider Active Star t: November 18, 2024 Dr. Harsh Manzo , Other Provider Active Start : November 18, 2024 Dr. Khai Kaye MD Other Provider Active Sta rt: November 18, 2024 Dr. Roberto Stark MD Other Provider Active St art: November 18, 2024 Dr. Tre Cyr MD Other Provider Active S tart: November 18, 2024 Dr. Bette Saez MD Other Provider Active Start: November 18, 2024 Dr. Carlos Sanchez MD Other Provider Active Start : November 18, 2024 Dr. Rj Garcia MD Other Provider Active Start: November 18, 2024 Dr. Jb Cooley MD Other Provider Active Start : November 18, 2024 Dr. Ginny Brock MD Other Provider Active Star t: November 18, 2024 Dr. Claudine Quezada MD Other Provider Active Sta rt: November 18, 2024 Dr. Desiree Crook MD Other Provider Active Sta rt: November 18, 2024 Dr. Brian Garcia MD Other Provider Active Star t: November 18, 2024 Dr. Tano Romero MD Other Provider Active St art: November 18, 2024 Dr. Yonny Cabrales MD Other Provider Active Star t: November 18, 2024 Dr. Slade Saini , Other Provider Active St art: November 18, 2024 Dr. Jakob Gallegos MD Other Provider Active Start: November 18, 2024 Dr. Laura Sam MD Other Provider Active St art: November 18, 2024 Dr. Doug Lai DO Other Provider Active Start: November 18, 2024 Dr. Yusuf Stearns MD Other Provider Active Start: November 18, 2024 Dr. Alexi Gurrola MD Other Provider Active Star t: November 18, 2024 Dr. Klaus Bardales MD Other Provider Active Sta rt: November 18, 2024 Azucena Bethea PARTS IDENTIFICATION TECHNICIAN, PARTS IDENTIFICATION TECHNICIAN-C Other Provider Active Start: November 18, 2024 Mathew Low , PARTS IDENTIFICATION TECHNICIAN-C Other Provider Active St art: November 18, 2024 Dr. Khai Heart , Other Provider Active Sta rt: November 18, 2024 Dr. Constanza Shearer MD Other Provider Active Start : November 18, 2024 Dr. Bhavana Tellez MD Other Provider Active St art: November 18, 2024 Jenny Tijerina NP-C Other Provider Active Sta rt: November 18, 2024 Naya Livingston NP, PARTS IDENTIFICATION TECHNICIAN-C Other Provider Active Start: November 18, 2024 CARMELITA Vasquez Other Provider Active Start: 2024 Team Status: Active Member Role Status Dates Dr. Fernandez Baig Primary Care Provider Active Start: November 19, 2024 Dr. Beau Costa , Emergency Provider Active Start : November 19, 2024 Dr. Rohan Henao MD Admit Provider Active Sta rt: November 19, 2024 Dr. Rohan Henao MD Attending Provider Active Start: November 19, 2024 Dr. Rohan Henao MD Other Provider Active Sta rt: November 19, 2024 Dr. Jay Cueva MD Other Provider Active Start: November 19, 2024 Dr. Jermaine Thapa MD Other Provider Active Start: November 19, 2024 Dr. Ferdinand Shearer MD Other Provider Active Star t: November 19, 2024 Dr. Harsh Manzo DO Other Provider Active Start : November 19, 2024 Dr. Khai Kaye MD Other Provider Active Sta rt: November 19, 2024 Dr. Roberto Stark MD Other Provider Active St art: November 19, 2024 Dr. Tre Cyr MD Other Provider Active S tart: November 19, 2024 Dr. Bette Saez MD Other Provider Active Start: November 19, 2024 Dr. Carlos Sanchez MD Other Provider Active Start : November 19, 2024 Dr. Rj Garcia MD Other Provider Active Start: November 19, 2024 Dr. Jb Cooley MD Other Provider Active Start : November 19, 2024 Dr. Ginny Brock MD Other Provider Active Star t: November 19, 2024 Dr. Claudine Quezada MD Other Provider Active Sta rt: November 19, 2024 Dr. Desiree Crook MD Other Provider Active Sta rt: November 19, 2024 Dr. Brian Garcia MD Other Provider Active Star t: November 19, 2024 Dr. Tano Romero MD Other Provider Active St art: November 19, 2024 Dr. Yonny Cabrales MD Other Provider Active Star t: November 19, 2024 Dr. Slade Saini , Other Provider Active St art: November 19, 2024 Dr. Jakob Gallegos MD Other Provider Active Start: November 19, 2024 Dr. Laura Sam MD Other Provider Active St art: November 19, 2024 Dr. Doug Lai , Other Provider Active Start: November 19, 2024 Dr. Yusuf Stearns MD Other Provider Active Start: November 19, 2024 Dr. Alexi Gurrola MD Other Provider Active Star t: November 19, 2024 Dr. Klaus Bardales MD Other Provider Active Sta rt: November 19, 2024 Azucena Bethea PARTS IDENTIFICATION TECHNICIAN, PARTS IDENTIFICATION TECHNICIAN-C Other Provider Active Start: November 19, 2024 Mathew Low , PARTS IDENTIFICATION TECHNICIAN-C Other Provider Active St art: November 19, 2024 Dr. Khai Heart DO Other Provider Active Sta rt: November 19, 2024 Dr. Constanza Shearer MD Other Provider Active Start : November 19, 2024 Dr. Bhavana Tellez MD Other Provider Active St art: November 19, 2024 eJnny Tijerina , [place]-C Other Provider Active Sta rt: November 19, 2024 Naya Livingston NP, PARTS IDENTIFICATION TECHNICIAN-C Other Provider Active Start: November 19, 2024 CARMELITA Vasquez Other Provider Active Start: M 2024 Source Comments (unrecognize d section and content) In the event this informatio n is protected by the Federal Confidentiality of Alcohol and Drug Abuse Patient Records regulations: The Federal rules restrict any use of the information to criminally investigate or prosecute any alcohol or drug abuse patient.[facility] the event this information is protected by the Federal Confidentiality of Alcohol and Drug Abuse Patient Records regulations: The Federal rules restrict any use of the information to criminally investigate or prosecute any alcohol or drug abuse patient.[facility] the event this information is protected by the Federal Confidentiality of Alcohol and Drug Abuse Patient Records regulations: The Federal rules restrict any use of the information to criminally investigate or prosecute any alcohol or drug abuse patient.[facility] [facility] Hospital[facility] the event this information is protected by the Federal Confidentiality of Alcohol and Drug Abuse Patient Records regulations: The Federal rules restrict any use of the information to criminally investigate or prosecute any alcohol or drug abuse patient.[facility] the event this information is protected by the Federal Confidentiality of Alcohol and Drug Abuse Patient Records regulations: The Federal rules restrict any use of the information to criminally investigate or prosecute any alcohol or drug abuse patient.[facility] Hospital[facility] the event this information is protected by the Federal Confidentiality of Alcohol and Drug Abuse Patient Records regulations: The Federal rules restrict any use of the information to criminally investigate or prosecute any alcohol or drug abuse patient.[facility] Reason for Visit (unrecogniz ed section and content) Reason Comments Cochlear Implant Reason Comments Patient Question Reason Comments Hearing Loss Problem With Cochlear Implant(s) FOR RECORDS PERTAINING TO PATIENTS WHO ARE OR HAVE BEEN ENROLLED IN A CHEMICAL DEPENDENCY/SUBSTANCEABUSE PROGRAM, SOME INFORMATION MAY BE OMITTED. This clinical summary was aggregated from multiple sources. Caution should be exercised in using it in the provision of clinical care. This summary normalizes information from multiple sources, and as a consequence, information in this document may materially change the coding, format and clinical context of patient data. In addition, data may be omitted in some cases. CLINICAL DECISIONS SHOULD BE BASED ON THE PRIMARY CLINICAL RECORDS. [facility] [employer] provides no warranty or guarantee of the accuracy or completeness of information in this document.
[2025-01-21 01:14] LABS: Differential Indicated SCAN CRITERIA MET
[2025-01-21 01:50] LABS: Differential Comment SCANNED
[2025-01-21] MEDS: Albuterol 2.5 MG/3 ML VIAL.NEB. INHALATION ×2 (02:09→04:41)
--- NOTE | 2025-01-21 02:32 | HP.PCM.HOS_ITS ---
[facility] - General General Date of Service: 01/21/25 Chief Complaint: Fever/chills and fatigue HPI Narrative NANETTE MONROY, is a 79 M who presented to [facility] ED on 01/21/2025 with fever/chills and fatigue. 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 Patient was hospitalized here in November with acute on chronic respiratory failure due to COPD exacerbation. Pulmonology followed. Patient was agreeable to discharging home with home hospice care for his end-stage COPD at that time. Needs 6 L of oxygen at rest. Patient reports doing fairly well since then on his home inhalers. However, he noticed yesterday that he was having some difficulty with urination, and then today he developed fevers/chills and worsening fatigue so he came in for further evaluation. In the ED he was febrile to 100.8 F, tachycardic to the 110s and borderline hypotensive to the 100s over 50s. He was in the low to mid 90s on his home 6 L nasal cannula. Labs notable for WBC count 25 with neutrophil predominance, creatinine 1.14 (baseline 0.8-0.9), lactic acid 1.8. UA with 500 leukocyte esterase, negative nitrites, greater than 100 WBCs, 3+ bacteria. Given suspected UTI with SIRS criteria, patient was given IV antibiotics and IV fluids. ED physician discussed with patient and he was amenable to admission for IV antibiotics and further monitoring. Hospitalist was then contacted for admission. I saw the patient at bedside in the ED, was present. Patient was mildly fatigued and flushed appearing but otherwise sitting back comfortably in bed and conversing normally. He noted improvement in the fevers and chills since being given Tylenol here. Feels less dry after IV fluids as well. Denies any suprapubic pain or discomfort. No other acute concerns currently. Will be admitted for further management. [facility] Medical History (Updated 01/21/25 @ 02:[address] Jb Mauricio DO) COPD exacerbation Acute on chronic hypoxic respiratory failure Wears hearing aid in both ears Hearing loss, right CPAP (continuous positive airway pressure) dependence On home oxygen therapy Old myocardial infarction Claudication, intermittent Premature ventricular contraction Hyperlipidemia Ischemic cardiomyopathy Atherosclerotic heart disease of [place] coronary artery without angina pectoris Displacement of other ocular prosthetic devices, implants and grafts, initial encounter Nocturnal hypoxia Tobacco dependence in remission Chronic hypoxemic respiratory failure COPD (chronic obstructive pulmonary disease) Home Medications ?Medication ?Instructions ?Recorded ?Last Taken ?Type aspirin 81 mg tablet,delayed 81 mg PO DAILY@1999 [facility] 12/24/19 11/14/24 History release nitroglycerin 0.4 mg sublingual 0.4 mg sublingual Q5-1 5M PRN chest 03/22/22 Unknown Rx tablet pain #25 tabs Handicap Placcard #1 ea 07/29/22 Unknown Rx albuterol sulfate 2.5 mg/3 mL 2.5 mg (3 mL) inhalation Q4H #180 08/14/24 11/14/24 Rx (0.083 %) solution for nebulization mL albuterol sulfate 90 mcg/actuation 2 puff inhalation Q 4H PRN 08/14/24 Unknown Rx aerosol inhaler shortness of breath or wheez ing #8.5 grams budesonide 0.5 mg/2 mL suspension 0.5 mg (2 mL) inhala tion BID #120 08/14/24 11/14/24 Rx for nebulization mL guaifenesin 1,200 mg tablet, 1,200 mg PO Q12H #60 tabs 08/14/24 11/14/24 Rx extended release 12 hr metoprolol succinate 25 mg 12.5 mg (1/2 x 25 mg) PO DA RENÉ #45 08/20/24 11/14/24 Rx tablet,extended release 24 hr TABLETS ipratropium 0.5 mg-albuterol 3 mg 3 ml inhalation ALMAZ Y 09/11/24 11/14/24 History (2.5 mg base)/3 mL nebulization soln isosorbide mononitrate 30 mg 30 mg PO DAILY #90 tabs 0 09/11/24 11/14/24 Rx tablet,extended release 24 hr losartan 25 mg tablet 25 mg PO BID #180 tabs 09/1111/14/24 Rx benzonatate 100 mg capsule 200 mg (2 x 100 mg) PO TID PRN 11/19/24 Unknown Rx cough #30 caps psyllium husk 3 gram oral powder 1 packet PO DAILY PRN PRN 11/19/24 Unknown Rx packet (Daily Fiber Constipation #0 ea (psyllium-aspartame)) sennosides 8.6 mg-docusate sodium 2 tab PO BID #0 tabs 11/19/24 Unknown Rx 50 mg tablet (Stimulant Laxative Plus) prednisone 10 mg tablet 10 mg PO DAILY #90 tabs 09/04 Unknown Rx furosemide 20 mg tablet 20 mg PO BID 01/21/25 Unknow n History lorazepam 0.5 mg tablet 0.5 mg PO Q6H PRN PRN anxiet y 01/21/25 Unknown History oxycodone 5 mg tablet 2.5 mg PO Q6H PRN PRN pain 0 01/21/25 Unknown History potassium chloride 20 mEq 20 meq PO DAILY muscle spasm 01/21/25 Unknown History tablet,extended release(part/cryst) Allergy/AdvReac Type Severity Reaction Status Date / Time tiotropium (From Spiriva AdvReac Severe Decreased Verified 01/20/25 23:17 with HandiHaler) Urination cyanocobalamin (vitamin B12) AdvReac Other Verified 01/20/25 23:17 Family History Sister CAD (coronary artery disease) Hx of CABG Sister Breast cancer Brother COPD (chronic obstructive pulmonary disease) Surgical History Presence of aortocoronary bypass graft (~08/01/01) History of cochlear implant Postsurgical percutaneous transluminal coronary angioplasty (PTCA) status (~1989) Aortocoronary bypass status (~08/01/01) History of vasectomy Social History Smoking Status: Former smoker how long ago did patient quit smokin + years ago second hand exposure: No alcohol intake: current alcohol intake frequency: a few times a week substance use type: does not use caffeine: Yes ROS Constitutional Constitutional: Reports chills, fatigue, fever(s) and malaise; Denies weakness Eyes Eyes: Denies change in vision Cardiovascular Cardiovascular: Denies chest pain Respiratory/Chest Respiratory/Chest: Denies shortness of breath at rest Gastrointestinal Gastrointestinal: Denies abdominal pain Genitourinary Genitourinary: Reports dysuria and urinary hesitancy Musculoskeletal Musculoskeletal: Denies arthralgias or myalgias Vital Signs Vital Signs Vital Signs: 01/20/25 23:17 01/21/25 00:01 01/21/25 00:21 Temperature 100.8 F H 99.9 F H Temperature Source Oral Oral Pulse Rate 110 H 102 H Respiratory Rate 26 H 26 H Respiratory Effort Short of Breath Respiratory Depth Normal Respiratory Pattern Tachypnea Blood Pressure 106/58 L 111/60 Blood Pressure Mean 74 77 Pulse Ox 92 94 Oxygen Delivery Method Nasal Cannula Nasal Cannula Nasal Cannula Oxygen Flow Rate (L/min) 7 6 6 01/21/25 01:00 01/21/25 01:27 Temperature 99 F 99.4 F H Temperature Source Oral Oral Pulse Rate 99 97 Respiratory Rate 22 H 24 H Respiratory Effort Respiratory Depth Respiratory Pattern Blood Pressure 158/91 H 101/57 L Blood Pressure Mean 113 71 Pulse Ox 95 95 Oxygen Delivery Method Room Air Nasal Cannula Oxygen Flow Rate (L/min) 6 Weight Weight: 84.5 kg Body Mass Index (BMI) 27.5 Physical Exam Const alert, oriented x3, no apparent distress and average body habitus Constitutional Narrative: Elderly male, chronically ill-appearing, mildly fatigued and flushed appearing, otherwise sitting back fairly comfortably in bed and conversing normally. General Appearance: cooperative and comfortable HEENT normocephalic, head/scalp atraumatic, hearing grossly normal bilaterally and nasal mucous membranes and turbinates normal HEENT Narrative: Dry mucous membranes. Eyes PERRL, EOMs intact bilaterally and conjunctivae normal Neck full ROM Chest inspection of chest normal Resp normal respiratory effort and no use of accessory muscles Resp Narrative: Breathing comfortably on home 6 L at rest. Decreased breath sounds bilaterally throughout but no wheezing or crackles noted. Cardio no murmurs and peripheral pulses 2+ throughout Cardio Narrative: Tachycardic, regular rhythm. GI normal to inspection, nondistended, normoactive bowel sounds, soft to palpation, non-tender and non-distended Back/Spine normal ROM Extremity normal to inspection, full ROM and no pedal edema Skin no rashes or lesions noted Psych mental status grossly normal Results Lab / Micro Data 01/21/25 00:30 01/21/25 00:30 Labs: Laboratory Results - last 24 hr 01/20/25 23:45: Urine Color Yellow, Urine Clarity Cloudy, Urine pH 5.0, Ur Specific [place] 1.015, Urine Protein 30 H, Urine Glucose (UA) Normal, Urine Ketones 5 H, Urine Occult Blood 25 H, Urine Nitrite Negative, Urine Bilirubin 1 H, Urine Urobilinogen 1 H, Ur Leukocyte Esterase 500 H, Urine RBC 0 SEEN, Urine WBC >100 SEEN, Ur Squamous Epith Cells 0-5 SEEN, Urine Bacteria 3+, Urine Mucus 0 SEEN 01/21/25 00:30: WBC 25.3 H, RBC 3.85 L, Hgb 12.5 L, Hct 37.8 L, MCV 98.2 H, MCH 32.5 H, MCHC 33.1, RDW Std Deviation 48.7 H, RDW Coeff of Crystal 13.5, Plt Count 267, MPV 9.3, Immature Gran % (Auto) 1.000 H, Neut % (Auto) 84.8 H, Lymph % (Auto) 5.3 L, [place] % (Auto) 8.4, Eos % (Auto) 0.2, Baso % (Auto) 0.3, Absolute Neuts (auto) 21.4 H, Absolute Lymphs (auto) 1.34, Nucleated RBC % 0, Differential Comment SCANNED, Sodium 137, Potassium 3.8, Chloride 98, Carbon Dioxide 25.8, Anion Gap 14, BUN 17, Creatinine 1.14, Estim Creat Clear Calc 51.68, Est GFR (MDRD) Non-Af 65, BUN/Creatinine Ratio 15.2, Glucose 106 H, Lactic Acid 1.8, Calcium 8.8 Assessment & Plan Assessment/Plan (1) UTI (urinary tract infection): PLAN: Plan Patient is an 79-year-old male who presented to [facility] ED on 01/21/2025 with fever/chills and fatigue. 1. UTI, sepsis ruled out ? Admit under inpatient status to PCU. Met SIRS criteria on admit with fever, tachycardia and leukocytosis but did not meet sepsis criteria. Presumed urinary source as UA is infectious appearing. Given 2 L of IV fluids follow-up with improvement in tachycardia and blood pressure. Will treat with IV ceftriaxone for now, follow-up urine culture and blood cultures. Suspect patient will be stable for discharge back home with hospice in the next 1 to 2 days and can complete course of p.o. antibiotics on discharge. 2. 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 Case management consulted. Has been on home hospice care since hospitalization here in late November. Stable on home 6 L nasal cannula on admission here. Continue home inhalers. 3. History of CAD with CABG, hypertension, hyperlipidemia ? Holding home Lasix, nitrate, losartan and Toprol for now, restart when able. Continue home aspirin. DVT prophylaxis: Lovenox CODE STATUS: DNRCC Expected disposition: Home, 2 to 3 days Total clinical time spent by myself addressing the patient's medical issues, reviewing all the data, and collaborating with patient's care team: 75 minutes. Charges/Coding Visit Charges Inpatient E&M: 03782 Init Hosp L3
--- NOTE | 2025-01-21 02:42 | EDS_ITS ---
HPI History of Present Illness Chief Complaint: Complaint Informant: patient and spouse/S.O. 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 He states that today he had a sensation that he needed to urinate but could only get a slight amount out. He states he is in hospice secondary to his end-stage COPD. When he described this sensation to the hospice nurse there was concern that he had acute urinary retention. Reportedly the hospice nurse tried 3 different Hughes catheterizations without any improvement and therefore sent the patient to the ER for evaluation. Patient denies any history of urinary retention recent trauma or recent change in medication [facility] Medical History (Updated 01/21/25 @ 07:[address] 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, implants and grafts, initial encounter Nocturnal hypoxia Tobacco dependence in remission Chronic hypoxemic respiratory failure COPD (chronic obstructive pulmonary disease) Home Medications ?Medication ?Instructions ?Recorded ?Last Taken ?Type aspirin 81 mg tablet,delayed 81 mg PO DAILY@1999 [facility] 12/24/19 11/14/24 History release nitroglycerin 0.4 mg sublingual 0.4 mg sublingual Q5-1 5M PRN chest 03/22/22 Unknown Rx tablet pain #25 tabs Handicap Placcard #1 ea 07/29/22 Unknown Rx albuterol sulfate 2.5 mg/3 mL 2.5 mg (3 mL) inhalation Q4H #180 08/14/24 11/14/24 Rx (0.083 %) solution for nebulization mL albuterol sulfate 90 mcg/actuation 2 puff inhalation Q 4H PRN 08/14/24 Unknown Rx aerosol inhaler shortness of breath or wheez ing #8.5 grams budesonide 0.5 mg/2 mL suspension 0.5 mg (2 mL) inhala tion BID #120 08/14/24 11/14/24 Rx for nebulization mL guaifenesin 1,200 mg tablet, 1,200 mg PO Q12H #60 tabs 08/14/24 11/14/24 Rx extended release 12 hr metoprolol succinate 25 mg 12.5 mg (1/2 x 25 mg) PO DA RENÉ #45 08/20/24 11/14/24 Rx tablet,extended release 24 hr TABLETS ipratropium 0.5 mg-albuterol 3 mg 3 ml inhalation ALMAZ Y 09/11/24 11/14/24 History (2.5 mg base)/3 mL nebulization soln isosorbide mononitrate 30 mg 30 mg PO DAILY #90 tabs 0 09/11/24 11/14/24 Rx tablet,extended release 24 hr losartan 25 mg tablet 25 mg PO BID #180 tabs 09/1111/14/24 Rx benzonatate 100 mg capsule 200 mg (2 x 100 mg) PO TID PRN 11/19/24 Unknown Rx cough #30 caps psyllium husk 3 gram oral powder 1 packet PO DAILY PRN PRN 11/19/24 Unknown Rx packet (Daily Fiber Constipation #0 ea (psyllium-aspartame)) sennosides 8.6 mg-docusate sodium 2 tab PO BID #0 tabs 11/19/24 Unknown Rx 50 mg tablet (Stimulant Laxative Plus) prednisone 10 mg tablet 10 mg PO DAILY #90 tabs 09/04 Unknown Rx furosemide 20 mg tablet 20 mg PO BID 01/21/25 Unknow n History lorazepam 0.5 mg tablet 0.5 mg PO Q6H PRN PRN anxiet y 01/21/25 Unknown History oxycodone 5 mg tablet 2.5 mg PO Q6H PRN PRN pain 0 01/21/25 Unknown History potassium chloride 20 mEq 20 meq PO DAILY muscle spasm 01/21/25 Unknown History tablet,extended release(part/cryst) Allergy/AdvReac Type Severity Reaction Status Date / Time tiotropium (From Spiriva AdvReac Severe Decreased Verified 01/20/25 23:17 with HandiHaler) Urination cyanocobalamin (vitamin B12) AdvReac Other Verified 01/20/25 23:17 Family History Sister CAD (coronary artery disease) Hx of CABG Sister Breast cancer Brother COPD (chronic obstructive pulmonary disease) Surgical History Presence of aortocoronary bypass graft (~08/01/01) History of cochlear implant Postsurgical percutaneous transluminal coronary angioplasty (PTCA) status (~1989) Aortocoronary bypass status (~08/01/01) History of vasectomy Social History Smoking Status: Former smoker how long ago did patient quit smokin + years ago second hand exposure: No alcohol intake: current alcohol intake frequency: a few times a week substance use type: does not use caffeine: Yes ROS ROS ED Constitutional Constitutional ED: Denies chills or fever(s) ENT ENT ED: Denies sore throat Cardiovascular Cardiovascular: Denies chest pain Respiratory/Chest Respiratory/Chest: Reports cough, dyspnea and other Details: Patient reports cough and shortness of breath are chronic in nature secondary to his end-stage COPD Gastrointestinal Gastrointestinal: Denies abdominal pain, diarrhea, nausea or vomiting Genitourinary Genitourinary ED: Reports other Details: Urinary hesitancy Musculoskeletal Musculoskeletal: Denies back pain or myalgias Integumentary Denies rash Neurologic Neurologic: Denies headache(s) Hematologic/Lymphatic Hematologic/Lymphatic: Denies easy bleeding or easy bruising EXAM Physical Exam Const Vital Signs: 01/20/25 23:17 01/21/25 00:01 01/21/25 00:21 Temperature 100.8 F H 99.9 F H Temperature Source Oral Oral Pulse Rate 110 H 102 H Respiratory Rate 26 H 26 H Respiratory Effort Short of Breath Respiratory Depth Normal Respiratory Pattern Tachypnea Blood Pressure 106/58 L 111/60 Blood Pressure Mean 74 77 Pulse Ox 92 94 Oxygen Delivery Method Nasal Cannula Nasal Cannula Nasal Cannula Oxygen Flow Rate (L/min) 7 6 6 01/21/25 01:00 01/21/25 01:27 01/21/25 02:09 Temperature 99 F 99.4 F H Temperature Source Oral Oral Pulse Rate 99 97 94 Respiratory Rate 22 H 24 H 16 Respiratory Effort Respiratory Depth Respiratory Pattern Normal Blood Pressure 158/91 H 101/57 L Blood Pressure Mean 113 71 Pulse Ox 95 95 Oxygen Delivery Method Room Air Nasal Cannula Oxygen Flow Rate (L/min) 6 Positive well nourished and well developed General Appearance ED: well developed; Negative for pallor HEENT HEENT Narrative: Normocephalic atraumatic Eyes PERRL and EOMs intact bilaterally General Eye ED: Negative for scleral icterus Neck supple and no JVD Resp Resp Narrative: Patient is tachypneic and breath sounds are diminished throughout with diffuse expiratory wheeze and faint rhonchi in the bases consistent with history of end- stage COPD Cardio regular rhythm Rate: tachycardic and other Other Details: Tachycardic rate with regular rhythm GI normal to inspection, nondistended, normoactive bowel sounds, non-tender, non- distended and no masses GI Narrative: Abdomen is soft nontender and nondistended with normal active bowel sounds No organomegaly to suggest acute urinary retention No pulsatile mass or fluid wave No peritoneal signs Auscultation: normoactive bowel sounds Palpation: soft Narrative: Normal uncircumcised male. No blood or discharge from the urethral meatus. No testicular swelling or masses. No secondary soft tissue skin changes to suggest Bradford's gangrene Back/Spine no CVA tenderness Extremity normal to inspection Neuro oriented x3, CN's II-XII intact bilaterally and no sensory deficits noted Sensorium / Orientation: alert Motor Exam: strength 5/5 throughout Psych mental status grossly normal Skin no rashes or lesions noted and no wounds General Skin Exam: Negative for jaundice or pallor MDM MDM MDM Narrative Medical decision making narrative: Patient presented to the ER febrile but otherwise maintaining his blood pressure. He was requiring oxygen but wears this at baseline secondary to his end-stage COPD. Initially coming in there was concern that he had acute urinary retention but his physical exam does not suggest this and bladder scan shows only a small amount of urine within the bladder. With his low-grade fever and symptoms there is high likelihood that he is experiencing the sensation that he needs to urinate from bladder spasm and UTI. With the fever there is concern that he is also developing urosepsis. Therefore labs were obtained as well as a urine sample. Patient's white count is elevated at 25.3. He states he has been taking steroids. Neutrophil count is also elevated at 21.4. There is no signs of acute kidney injury as his creatinine is normal. Urine sample is consistent with infection. At this time based on the patient's significant white count and elevated neutrophil count I have concern that the infection is systemic. He is in hospice secondary to his COPD but we discussed that he would most likely benefit from IV antibiotics versus oral and that there is potential that his blood pressure and symptoms could worsen and that he might require more invasive interventions such as vasopressors or help with breathing. He states that this time he would not be opposed to receiving those treatments if needed and therefore with concern for developing sepsis the hospitalist was contacted and oumar james agrees to accept the patient for continued monitoring and IV antibiotics History & Record Review Discussion w/independent historian: Patient and Significant other Lab Data Attestation: I reviewed the patient's lab results. Labs: Laboratory Results - last 24 hr 01/20/25 01/21/25 23:45 00:30 WBC 25.3 H RBC 3.85 L Hgb 12.5 L Hct 37.8 L MCV 98.2 H MCH 32.5 H MCHC 33.1 RDW Std Deviation 48.7 H RDW Coeff of Crystal 13.5 Plt Count 267 MPV 9.3 Immature Gran % (Auto) 1.000 H Neut % (Auto) 84.8 H Lymph % (Auto) 5.3 L [place] % (Auto) 8.4 Eos % (Auto) 0.2 Baso % (Auto) 0.3 Absolute Neuts (auto) 21.4 H Absolute Lymphs (auto) 1.34 Nucleated RBC % 0 Differential Comment SCANNED Sodium 137 Potassium 3.8 Chloride 98 Carbon Dioxide 25.8 Anion Gap 14 BUN 17 Creatinine 1.14 Estim Creat Clear Calc 51.68 Est GFR (MDRD) Non-Af 65 BUN/Creatinine Ratio 15.2 Glucose 106 H Lactic Acid 1.8 Calcium 8.8 Urine Color Yellow Urine Clarity Cloudy Urine pH 5.0 Ur Specific [place] 1.015 Urine Protein 30 H Urine Glucose (UA) Normal Urine Ketones 5 H Urine Occult Blood 25 H Urine Nitrite Negative Urine Bilirubin 1 H Urine Urobilinogen 1 H Ur Leukocyte Esterase 500 H Urine RBC 0 SEEN Urine WBC >100 SEEN Ur Squamous Epith Cells 0-5 SEEN Urine Bacteria 3+ Urine Mucus 0 SEEN Management Discussion w/another healthcare provider: Hospitalist Discharge Plan Dx/Rx/DC Orders Clinical Impression: UTI (urinary tract infection), COPD (chronic obstructive pulmonary disease), Hyperlipidemia, Ischemic cardiomyopathy Disposition Disposition: Acute Care Hospital [facility] Discharge Date/Time: 01/21/25 05:12
--- OUTSIDE RECORDS SUMMARY | 2025-01-21 05:04 | XMS RPT_ITS | CCD ---
Author Organization [facility] Care Team Providers Care [address] Magistrate Name Role Phone FERNANDEZ BAIG DO Primary [...] Dr. Fernandez Baig Referring Provider Neema DUNCAN SCOURING MACHINE TENDER-C Azucena Attending Provider Dr. Wilberto Tillman Attending Provider Unavailable Primary Care Provider Unavailabl e FERNANDEZ BAIG DO Attending Unavailable FERNANDEZ BAIG DO Primary Care Unavailable FERNANDEZ BAIG DO Attending Unavailable FERNANDEZ BAIG DO Primary Care Unavailable ANASTASIYA FINK Attending Unavailable ANASTASIYA FINK Attending Unavailable ANASTASIYA FINK Attending Unavailable SELF Referring Unavailable Dr. Fernandez Baig DO Primary Care Provider Dr. Fernandez Baig DO Referring Provider Azucena Chacon Attending Provider Yung Feliz Attending Provider Dr. Beau Costa DO Emergency Provider [phone] Rohan Henao MD Admit Provider Juliano BAGLEY, Dr. Madrigal Attending Provider Anay BAGLEY, Dr. Thompson Other Provider Alanis BAGLEY, Dr. Dean Other Provider Manfred BAGLEY, Dr. Streeter Other Provider Jovany RUTH, Dr. House Other Provider Vargas BAGLEY, Dr. Khai Shelton Other Provider [phone] Lincoln BAGLEY, Dr. Mejia Other Provider [phone] Klarissa BAGLEY, Dr. Toledo Other Provider [phone] Se BAGLEY, Dr. Amos Other Provider [phone] Laura BAGLEY, Dr. Gonzalez Other Provider Jose BAGLEY, Dr. De La Rosa Other Provider [phone] Yasir BAGLEY, Dr. Muhammad Other Provider [phone] Vinod BAGLEY, Dr. Gross Other Provider Damien BAGLEY, Dr. Chow Other Provider Unavailabl jacob Crook MD, Dr. Ramírez Other Provider Radha BAGLEY, Dr. Torres Other Provider Nick BAGLEY, Dr. Freedman Other Provider [phone] Samra BAGLEY, Dr. Blancas Other Provider Yeny RUTH, Dr. June Other Provider Rosy BAGLEY, Dr. Robert Other Provider [phone] Cecy BAGLEY, Dr. Sanchez Other Provider [phone] Doug Lai DO Other Provider Dr. Yusuf Stearns MD Other Provider Tay Gurrola MD, Dr. Truong Other Provider Jeffy BAGLEY, Dr. Enrique Other Provider Neema SCOURING MACHINE TENDER-C, Azucena Other Provider Devante SCOURING MACHINE TENDER-C, Mathew Mcghee Other Provider Juliano BAGLEY, Dr. Madrigal Other Provider Sly RUTH, Dr. Khai Monroe Other Provider [phone] Manfred BAGLEY, Dr. Apodaca Other Provider Geoff BAGLEY, Dr. Bateman Other Provider [phone] Lilliana SCOURING MACHINE TENDER-C, Jenny Other Provider Unavailabl e Miki SCOURING MACHINE TENDER-C, Naya Other Provider Masci PA, Adrianne Other Provider Jovany RUTH, Dr. House Attending Provider Yosvany BAGLEY, Dr. Bishop Attending Provider Neema SCOURING MACHINE TENDER, Azucena Attending Unavailable Jovanni, Fernandez Referring Unavailable [...] Consulting Unavailable Harsh Manzo Attending Unavailable Juliano Orhan Referring Unavailable Khai Heart Consulting Unavailable Constanza Shearer Consulting Unavailable Bhavana Telelz Consulting Unavailable Jenny Tijerina Consulting Unavailable Miki [...] Consulting Unavailable Jenny Tijerina Consulting Unavailable Naya Livingston NP Consulting Unavailable Charisse, Adrianne Consulting Unavailable Fernandez Baig Referring Unavailable Fernandez Baig Primary Care Unavailable Azucena Bethea NP Attending Unavailable Fernandez Baig Referring Unavailable Fernandez Baig Primary Care Unavailable Yung Huntley NP Attending Unavailable Allergies Allergy Classification Reported Allergen(s) Allergy Type Date of Onset Reaction(s) Facility (5 sources) tiotropium; Translations: [tiotropium] Drug Allergy 2 Unknown (qualifier value) [facility] (1 source) VITAMIN B12 INJECTION Propensity to adverse reactions 1 BLURRED VISION AND HOT FLASH [facility] Work Phone: (3 sources) vitamin B12 Drug Allergy 4 Other [facility] Comment on above: BLURRED VISION AND H OT FLASHES (1 source) tiotropium Drug Allergy 5 [facility] (1 source) vitamin B12 Drug Allergy 5 [facility] Medications Current Medications Medication Drug Class(es) [...] extended release oral tablet (1 source) Uncompetitive W-gflrlm-Z-aspartate Receptor Antagonist, Sigma-1 Agonist Start: 11-19-2024 Dextromethorphan-Guaifenesin 60-1,200 mg tablet extended release 12 hr Active 1 {tbl} PO TWICE A DAY 14 7 November 19, 2024 12:00am docusate sodium 50 mg / sennosides, mcc 8.6 mg oral tablet (1 source) Start: [...] BID, # 30 gram(s), 2 Refill(s), Pharmacy: [facility]/pharmacy #[id number], 177, cm, 06/13/20 11:13:00 EST, Height, kg, 06/13/20 11:13:00 EST, Dosing Weight Start Date: 06/13/20 Status: Ordered Psyllium Husk (Aspartame) (Daily Fiber (Psyllium-Aspart)) 3 gram Powder In Packet (1 source) Start: 11-19-2024 Psyllium Husk (Aspartame) (Daily Fiber (Psyllium-Aspart)) 3 gram Powder In Packet Active 1 NMA PO DAILY NEEDED as needed for Constipation 0 November 19, 2024 12:00am [id number] Completed/Discontinued Medications Medication Drug Class(es) Dates Sig [...] 06, 2016 1:39pm February 07, 2018 9:25am [id number] 200 actuat albuterol 0.09 mg/actuat metered dose [...] 2024 12:31pm August 20, 2024 10:53am Tiotropium Bruno (4 sources) Anticholinergic Start: 07-07-2017 End: 10-10-2017 take 1 puff(s) by inhalation every twenty-four hours Tiotropium Bruno (Spiriva Respimat) 2.5 mcg/actuation mist Discontinued 2 PUFF INHALATION Q24H July 07, 2017 3:02pm October 10, 2017 2:34pm administer at approximately the same time(s) each day Start: 07-07-2017 End: 10-10-2017 take 2.5 ug by inhalation every twenty-four hours Tiotropium Bruno (Spiriva Respimat) 2.5 mcg/actuation mist Discontinued 2 NMA INHALATION Q24H July 07, 2017 1:00am October 10, 2017 2:34pm administer at approximately the same time(s) each day Start: 07-07-2017 End: 10-10-2017 take 1 puff(s) by inhalation every twenty-four hours Tiotropium Bruno (Spiriva Respimat) 2.5 mcg/actuation mist Discontinued 2 [...] Profile (BMP )on 11-20-2024 BUN Normal 4-19 [facility] Comment on above: Result Comment: Canc elled via OM: Order cancelled - Patient discharged Performed By: #### L 500.2500 #### [facility] [address] [facility] [address] BUN/CRE Normal 10-20 [facility] Comment on above: Result Comment: Canc elled via OM: Order cancelled - Patient discharged Performed By: #### L 500.2500 #### [facility] [address] [facility] [address] Calcium Normal 7.6-11.0 [facility] Comment on above: Result Comment: Canc elled via OM: Order cancelled - Patient discharged Performed By: #### L 500.2500 #### [facility] [address] [facility] [address] CL Normal 98-108 [facility] Comment on above: Result Comment: Canc elled via OM: Order cancelled - Patient discharged Performed By: #### L 500.2500 #### [facility] [address] [facility] [address] CO2 Normal 21.0-32.0 [facility] Comment on above: Result Comment: Canc elled via OM: Order cancelled - Patient discharged Performed By: #### L 500.2500 #### [facility] [address] [place], [address] CREAT,SERUM Normal 0.70-1.20 [facility] Comment on above: Result Comment: Canc elled via OM: Order cancelled - Patient discharged Performed By: #### L 500.2500 #### [facility] [address] [place], [address] eGFR Normal >60 [facility] Comment on above: Result Comment: Canc elled via OM: Order cancelled - Patient discharged Performed By: #### L 500.2500 #### [facility] [address] [place], [address] GAP Normal 5-15 [facility] Comment on above: Result Comment: Canc elled via OM: Order cancelled - Patient discharged Performed By: #### L 500.2500 #### [facility] [address] [place], [address] GLU Normal 70-99 [facility] Comment on above: Result Comment: Canc elled via OM: Order cancelled - Patient discharged Performed By: #### L 500.2500 #### [facility] [address] [place], [address] Potassium Normal 3.3-5.1 [facility] Comment on above: Result Comment: Canc elled via OM: Order cancelled - Patient discharged Performed By: #### L 500.2500 #### [facility] [address] [place], [address] Basic Metabolic Profile (BMP) Normal 133-145 [facility] Comment on above: Result Comment: Canc elled via OM: Order cancelled - Patient discharged Performed By: #### L 500.2500 #### [facility] [address] [place], [address] CBC W/Diff, Automatedon 05-1 Absolute Neut Normal 2.0-7.7 [facility] Comment on above: Result Comment: Canc elled via OM: Order cancelled - Patient discharged Performed By: #### L 500.2500 #### [facility] [address] [place], [address] HCT Normal 40-54 [facility] Comment on above: Result Comment: Canc elled via OM: Order cancelled - Patient discharged Performed By: #### L 500.2500 #### [facility] [address] [place], [address] HGB Normal 13.0-16.5 [facility] Comment on above: Result Comment: Canc elled via OM: Order cancelled - Patient discharged Performed By: #### L 500.2500 #### [facility] [address] [place], [address] MCH Normal 27.0-32.0 [facility] Comment on above: Result Comment: Canc elled via OM: Order cancelled - Patient discharged Performed By: #### L 500.2500 #### [facility] [address] [place], [address] MCHC Normal 32-36 [facility] Comment on above: Result Comment: Canc elled via OM: Order cancelled - Patient discharged Performed By: #### L 500.2500 #### [facility] [address] [place], [address] MCV Normal 80-94 [facility] Comment on above: Result Comment: Canc elled via OM: Order cancelled - Patient discharged Performed By: #### L 500.2500 #### [facility] [address] [place], [address] NEUT% Normal 47-70 [facility] Comment on above: Result Comment: Canc elled via OM: Order cancelled - Patient discharged Performed By: #### L 500.2500 #### [facility] [address] [place], [address] PLT Normal 150-450 [facility] Comment on above: Result Comment: Canc elled via OM: Order cancelled - Patient discharged Performed By: #### L 500.2500 #### [facility] [address] [place], [address] RBC Normal 4.6-6.2 [facility] Comment on above: Result Comment: Canc elled via OM: Order cancelled - Patient discharged Performed By: #### L 500.2500 #### [facility] [address] [place], [address] RDW CV Normal 11.6-14.6 [facility] Comment on above: Result Comment: Canc elled via OM: Order cancelled - Patient discharged Performed By: #### L 500.2500 #### [facility] [address] [place], [address] RDW SD Normal 35.1-43.9 [facility] Comment on above: Result Comment: Canc elled via OM: Order cancelled - Patient discharged Performed By: #### L 500.2500 #### [facility] [address] [place], [address] WBC Normal 4.4-11.0 [facility] Comment on above: Result Comment: Canc elled via OM: Order cancelled - Patient discharged Performed By: #### L 500.2500 #### [facility] [address] [place], [address] Absolute lymphocyte countOrd ered By: Rohan Henao on 11-19-2024 Lymphocytes Auto (Unsp spec) [#/Vol] 2.28 10*3/uL 0.83-4.51 [facility] Absolute neutrophil countOrd ered By: Rohan Henao on 11-19-2024 Neutrophils (Bld) [#/Vol] 9.0 10*3/uL High 2.0-7.7 [facility] Anion gap in Serum or Plasma Ordered By: Rohan Henao on 11-19-2024 Anion gap [Moles/Vol] 9 mmol/L 5-15 [facility] Automated lymphocyte count a s percentage of total leukocytesOrdered By: Rohan Henao on 11-19-2024 Lymphocytes/100 WBC Auto (Unsp spec) 18.5 % Low 19-41 [facility] BUN/creatinine ratioOrdered By: Rohan Henao on 11-19-2024 Urea nitrogen/Creatinine [Mass ratio] 24.2 mg/mg High 10- [facility] Basic Metabolic Profile (BMP )on 11-19-2024 BUN/CRE 24.2 RATIO High 04-29 [facility] Comment on above: Performed By: #### L 509.7001, L503.7505 #### [facility] [address] [place], [address] Calcium [Mass/Vol] 8.5 mg/dL Normal 7.6-11.0 [facility] Comment on above: Performed By: #### L 509.7001, L503.7505 #### [facility] [address] [place], [address] Chloride [Moles/Vol] 106 mmol/L Normal 98-108 [facility] Comment on above: Performed By: #### L 509.7001, L503.7505 #### [facility] [address] [place], [address] CO2 [Moles/Vol] 24.1 mmol/L Normal 21.0-32.0 [facility] Comment on above: Performed By: #### L 509.7001, L503.7505 #### [facility] [address] [place], [address] Creatinine [Mass/Vol] 0.86 mg/dL Normal 0.70-1.20 [facility] Comment on above: Performed By: #### L 509.7001, L503.7505 #### [facility] [address] [place], [address] ECRCL 68.51 ml/min Normal 50-250 [facility] Comment on above: Performed By: #### L 509.7001, L503.7505 #### [facility] [address] [place], [address] GAP 9 Normal 5-15 [facility] Comment on above: Performed By: #### L 509.7001, L503.7505 #### [facility] [address] [place], [address] GFR/1.73 sq M.predicted among non-blacks MDRD (S/P/Bld) [Vol rate/Area] 88 mL/min/{1.73_m2} Normal >60 [facility] Comment on above: Result Comment: mL/m in/1.73m2 CKD-EPI Creatinine Equation (2020) Performed By: #### L 509.7001, L503.7505 #### [facility] [address] [place], [address] Glucose [Mass/Vol] 88 mg/dL Normal 70-99 [facility] Comment on above: Performed By: #### L 509.7001, L503.7505 #### [facility] [address] [place], [address] Potassium [Moles/Vol] 3.8 mmol/L Normal 3.3-5.1 [facility] Comment on above: Performed By: #### L 509.7001, L503.7505 #### [facility] [address] [place], [address] Sodium [Moles/Vol] 139 mmol/L Normal 133-145 [facility] Comment on above: Performed By: #### L 509.7001, L503.7505 #### [facility] [address] [place], [address] Urea nitrogen [Mass/Vol] 21 mg/dL High 4-19 [facility] Comment on above: Performed By: #### L 509.7001, L503.7505 #### [facility] [address] [place], [address] Basophil percentageOrdered B y: Rohan Juliano on 11-19-2024 Basophils/100 WBC (Bld) 0.1 % 0-1 [facility] CBC W/Diff, Automatedon 11-08-2024 Absolute Lymph 2.28 X10 3/uL Normal 0.83-4.51 [facility] Comment on above: Performed By: #### L 509.7001, L503.7505 #### [facility] [address] [place], [address] Absolute Neut 9.0 X10 3/uL High 2.0-7.7 [facility] Comment on above: Performed By: #### L 509.7001, L503.7505 #### [facility] [address] [place], [address] Basophils/100 WBC (Bld) 0.1 % Normal 0-1 [facility] Comment on above: Performed By: #### L 509.7001, L503.7505 #### [facility] [address] [place], [address] Eosinophils/100 WBC (Bld) 0.2 % Normal 0-5 [facility] Comment on above: Performed By: #### L 509.7001, L503.7505 #### [facility] [address] [place], [address] Erythrocyte distribution width (RBC) [Ratio] 13.4 % Normal 11.6-14.6 [facility] Comment on above: Performed By: #### L 509.7001, L503.7505 #### [facility] [address] [place], [address] Hematocrit (Bld) [Volume fraction] 36.6 % Low 40-54 [facility] Comment on above: Performed By: #### L 509.7001, L503.7505 #### [facility] [address] [place], [address] Hemoglobin (Bld) [Mass/Vol] 11.7 g/dL Low 13.0-16.5 [facility] Comment on above: Performed By: #### L 509.7001, L503.7505 #### [facility] [address] [place], [address] IG% 0.600 Normal 0.0-0.9 [facility] Comment on above: Result Comment: IG% - Immature Granulocytes (promyelocytes, myelocytes and metamyelocytes) > 1% indicates that a LEFT SHIFT is Present. Performed By: #### L 509.7001, L503.7505 #### [facility] [address] [place], [address] Lymphocytes/100 WBC (Bld) 18.5 % Low 19-41 [facility] Comment on above: Performed By: #### L 509.7001, L503.7505 #### [facility] [address] [place], [address] MCH (RBC) [Entitic mass] 30.9 pg Normal 27.0-32.0 [facility] Comment on above: Performed By: #### L 509.7001, L503.7505 #### [facility] [address] [place], [address] MCHC (RBC) [Mass/Vol] 32.0 g/dL Normal 32-36 [facility] Comment on above: Performed By: #### L 509.7001, L503.7505 #### [facility] [address] [place], [address] MCV (RBC) [Entitic vol] 96.6 fL High 80-94 [facility] Comment on above: Performed By: #### L 509.7001, L503.7505 #### [facility] [address] [place], [address] Monocytes/100 WBC (Bld) 8.1 % Normal 0-10 [facility] Comment on above: Performed By: #### L 509.7001, L503.7505 #### [facility] [address] [place], [address] Neutrophils/100 WBC (Bld) 72.5 % High 47-70 [facility] Comment on above: Performed By: #### L 509.7001, L503.7505 #### [facility] [address] [place], [address] Nucleated RBC (Bld) [#/Vol] 0 10*3/uL Normal 0-5 [facility] Comment on above: Performed By: #### L 509.7001, L503.7505 #### [facility] [address] [place], [address] Platelet mean volume (Bld) [Entitic vol] 9.2 fL Normal 6.2-12.0 [facility] Comment on above: Performed By: #### L 509.7001, L503.7505 #### [facility] [address] [place], [address] Platelets (Bld) [#/Vol] 206 10*3/uL Normal 150-450 [facility] Comment on above: Performed By: #### L 509.7001, L503.7505 #### [facility] [address] [place], [address] RBC (Bld) [#/Vol] 3.79 10*6/uL Low 4.6-6.2 [facility] Comment on above: Performed By: #### L 509.7001, L503.7965 #### [facility] [address] [place], [address] RDW SD 47.7 fl High 35.1-43.9 [facility] Comment on above: Performed By: #### L 509.7001, L503.3099 #### [facility] [address] [place], [address] WBC (Bld) [#/Vol] 12.4 10*3/uL High 4.4-11.0 [facility] Comment on above: Performed By: #### L 509.7001, L511.5392 #### [facility] [address] [place], [address] Carbon dioxide, total [Moles /volume] in Central venous bloodOrdered By: Rohan Henao on 11-19-2024 CO2 [Moles/Vol] 24.1 mmol/L 21.0-32.0 [facility] Chloride assayOrdered By: Andres Henao on 11-19-2024 Chloride [Moles/Vol] 106 mmol/L 98-108 [facility] Discharge Instructionon 11-08 Discharge Instruction [facility] Medical Records Department [address] [place] [address] Instructions for Home/Discharge Instructions 11/19/24 1019 MR#: [id number] Acct: [id number] Name: ELIANANANETTE Faith Rep #: [id number] : 1945 79 From: Rohan Henao MD [...] Shearer; Bhavana Tellez; Jenny Tijerina; Naya Livingston SCOURING MACHINE TENDER; Adrianne Mcqueen Discharge Orders/Prescription s Prescriptions: New [...] (Reason: Constipation) Qty: 0 0RF Rx Instructions: Aflo-lcf-lnnbexd prednisone 10 mg tablet 10 mg PO [...] Mathew Low NP; CARMELITA Vasquez Signed Normal [facility] Eosinophil percentageOrdered By: Rohan Henao on 11-19-2024 Eosinophils/100 WBC (Bld) 0.2 % 0-5 [facility] Erythrocyte distribution wid th ratioOrdered By: Rohan Henao on 11-19-2024 Erythrocyte distribution width (RBC) [Ratio] 13.4 % 11.6-14.6 [facility] Erythrocyte distribution wid th standard deviationOrdered By: Rohan Henao on 11-19-2024 Erythrocyte distribution width (RBC) [Ratio] 47.7 fl High 35.1-43.9 [facility] Glomerular filtration rate ( GFR) estimation/1.73 sq m using serum, plasma, or whole bOrdered By: Rohan Henao on 11-19-2024 GFR/1.73 sq M.predicted among non-blacks MDRD (S/P/Bld) [Vol rate/Area] 88 mL/min/{1.73_m2} >60 [facility] Comment on above: mL/min/1.73m2 CKD-EP I Creatinine Equation (2020) Hematocrit Auto (Bld) [Volum e fraction]Ordered By: Rohan Henao on 11-19-2024 Hematocrit (Bld) [Volume fraction] 36.6 % Low 40-54 [facility] Hemoglobin measurementOrdere d By: Rohan Henao on 11-19-2024 Hemoglobin (Bld) [Mass/Vol] 11.7 g/dL Low 13.0-16.5 [facility] Immature granulocytes/100 WB C Auto (Bld)Ordered By: Rohan Henao on 11-19-2024 Immature granulocytes/100 WBC (Bld) 0.600 % 0.0-0.9 [facility] Comment on above: IG% - Immature Granu locytes (promyelocytes, myelocytes and metamyelocytes) > 1% indicates that a LEFT SHIFT is Present. MCV (mean corpuscular volume ) determinationOrdered By: Rohan Henao on 11-19-2024 MCV (RBC) [Entitic vol] 96.6 fL High 80-94 [facility] Mean corpuscular hemoglobin (MCH) determinationOrdered By: Rohan Henao on 11-19-2024 MCH (RBC) [Entitic mass] 30.9 pg 27.0-32.0 [facility] Mean corpuscular hemoglobin concentration (MCHC) determinationOrdered By: Rohan Henao on 11-19-2024 MCHC (RBC) [Mass/Vol] 32.0 g/dL 32-36 [facility] Mean platelet volume determi nationOrdered By: Rohan Henao on 11-19-2024 Platelet mean volume (Bld) [Entitic vol] 9.2 fL 6.2-12.0 [facility] Monocyte percentageOrdered B y: Rohan Henao on 11-19-2024 Monocytes/100 WBC (Bld) 8.1 % 0-10 [facility] Neutrophil percentageOrdered By: Rohan Henao on 11-19-2024 Neutrophils/100 WBC (Bld) 72.5 % High 47-70 [facility] Nucleated red blood cell per centageOrdered By: Rohan Henao on 11-19-2024 Nucleated RBC/100 WBC (Bld) [Ratio] 0 % 0-5 [facility] Platelet countOrdered By: Andres Henao on 11-19-2024 Platelets (Bld) [#/Vol] 206 10*3/uL 150-450 [facility] Potassium measurement (mass/ volume)Ordered By: Rohan Henao on 11-19-2024 Potassium (Unsp spec) [Mass/Vol] 3.8 mmol/L 3.3-5.1 [facility] RBC Auto (Bld) [#/Vol]Ordere d By: Rohan Henao on 11-19-2024 RBC (Bld) [#/Vol] 3.79 10*6/uL Low 4.6-6.2 [facility] Respiratory Cultureon 2024 RESPC Microorganism Spec [...] Cefepime Islt ARIE 2 S Ciprofloxacin Islt RAIE 0.12 S levoFLOXacin Islt ARIE 0.25 S Meropenem Islt ARIE 1 S Pip+Tazo Islt ARIE 8 S Pseudomonas aeruginosa: REACTION Amikacin Islt ARIE 2 S Imipenem Islt ARIE 2 S Tobramycin Islt ARIE <=1 S Normal [facility] Comment on above: Performed By: #### L 509.7001, L503.7505 #### [facility] [address] [facility] [place], [place], [address] Serum creatinine measurement (mass/volume)Ordered By: Rohan Henao on 11-19-2024 Creatinine [Mass/Vol] 0.86 mg/dL 0.70-1.20 [facility] Serum glucose measurement (m ass/volume)Ordered By: Rohan Henao on 11-19-2024 Glucose [Mass/Vol] 88 mg/dL 70-99 [facility] Serum or plasma calcium todd urement (mass/volume)Ordered By: Rohan Henao on 11-19-2024 Calcium [Mass/Vol] 8.5 mg/dL 7.6-11.0 [facility] Serum or plasma urea nitroge n measurement (mass/volume)Ordered By: Rohanandrze Henao on 11-19-2024 Urea nitrogen [Mass/Vol] 21 mg/dL High 4-19 [facility] Sodium levelOrdered By: Connie drummond Juliano on 11-19-2024 Sodium [Moles/Vol] 139 mmol/L 133-145 [facility] White blood cell (WBC) count Ordered By: Rohanandrez Henao on 11-19-2024 WBC (Bld) [#/Vol] 12.4 10*3/uL High 4.4-11.0 [facility] Basic Metabolic Profile (BMP )on 11-18-2024 BUN/CRE 25.3 RATIO High 10-20 [facility] Comment on above: Performed By: #### L 500.2500 #### [facility] [address] [facility] [address] Calcium [Mass/Vol] 8.5 mg/dL Normal 7.6-11.0 [facility] Comment on above: Performed By: #### L 500.2500 #### [facility] [address] [facility] [address] Chloride [Moles/Vol] 108 mmol/L Normal 98-108 [facility] Comment on above: Performed By: #### L 500.2500 #### [facility] [address] [place], [address] CO2 [Moles/Vol] 22.2 mmol/L Normal 21.0-32.0 [facility] Comment on above: Performed By: #### L 500.2500 #### [facility] [address] [place], [address] Creatinine [Mass/Vol] 0.96 mg/dL Normal 0.70-1.20 [facility] Comment on above: Performed By: #### L 500.2500 #### [facility] [address] [place], [address] ECRCL 61.37 ml/min Normal 50-250 [facility] Comment on above: Performed By: #### L 500.2500 #### [facility] [address] [place], [address] GAP 9 Normal 5-15 [facility] Comment on above: Performed By: #### L 500.2500 #### [facility] [address] [place], [address] GFR/1.73 sq M.predicted among non-blacks MDRD (S/P/Bld) [Vol rate/Area] 80 mL/min/{1.73_m2} Normal >60 [facility] Comment on above: Result Comment: mL/m in/1.73m2 CKD-EPI Creatinine Equation (2020) Performed By: #### L 500.2500 #### [facility] [address] [place], [address] Glucose [Mass/Vol] 116 mg/dL High 70-99 [facility] Comment on above: Performed By: #### L 500.2500 #### [facility] [address] [place], [address] Potassium [Moles/Vol] 3.9 mmol/L Normal 3.3-5.1 [facility] Comment on above: Performed By: #### L 500.2500 #### [facility] [address] [place], [address] Sodium [Moles/Vol] 139 mmol/L Normal 133-145 [facility] Comment on above: Performed By: #### L 500.2500 #### [facility] [address] [place], [address] Urea nitrogen [Mass/Vol] 24 mg/dL High 4-19 [facility] Comment on above: Performed By: #### L 500.2500 #### [facility] [address] [place], [address] Lactic Acidon 11-18-2024 Lactate [Moles/Vol] mmol/L Normal 0.0-2.0 [facility] Comment on above: Performed By: #### L 503.6005 #### [facility] [address] [place], [address] Lactic acid measurementOrder ed By: Carlos Sanchez on 11-18-2024 Lactate [Moles/Vol] mmol/L 0.0-2.0 [facility] Basic Metabolic Profile (BMP )on 11-17-2024 BUN/CRE 23.2 RATIO High 10-20 [facility] Comment on above: Performed By: #### L 500.2500 #### [facility] [address] [place], [address] Calcium [Mass/Vol] 9.0 mg/dL Normal 7.6-11.0 [facility] Comment on above: Performed By: #### L 500.2500 #### [facility] [address] [place], [address] Chloride [Moles/Vol] 104 mmol/L Normal 98-108 [facility] Comment on above: Performed By: #### L 500.2500 #### [facility] [address] [place], [address] CO2 [Moles/Vol] 22.7 mmol/L Normal 21.0-32.0 [facility] Comment on above: Performed By: #### L 500.2500 #### [facility] [address] [place], [address] Creatinine [Mass/Vol] 0.97 mg/dL Normal 0.70-1.20 [facility] Comment on above: Performed By: #### L 500.2500 #### [facility] [address] [place], [address] ECRCL 60.74 ml/min Normal 50-250 [facility] Comment on above: Performed By: #### L 500.2500 #### [facility] [address] [place], [address] GAP 11 Normal 5-15 [facility] Comment on above: Performed By: #### L 500.2500 #### [facility] [address] [place], [address] GFR/1.73 sq M.predicted among non-blacks MDRD (S/P/Bld) [Vol rate/Area] 79 mL/min/{1.73_m2} Normal >60 [facility] Comment on above: Result Comment: mL/m in/1.73m2 CKD-EPI Creatinine Equation (2020) Performed By: #### L 500.2500 #### [facility] [address] [place], [address] Glucose [Mass/Vol] 112 mg/dL High 70-99 [facility] Comment on above: Performed By: #### L 500.2500 #### [facility] [address] [place], [address] Potassium [Moles/Vol] 4.3 mmol/L Normal 3.3-5.1 [facility] Comment on above: Performed By: #### L 500.2500 #### [facility] [address] [place], [address] Sodium [Moles/Vol] 138 mmol/L Normal 133-145 [facility] Comment on above: Performed By: #### L 500.2500 #### [facility] [address] [place], [address] Urea nitrogen [Mass/Vol] 23 mg/dL High 4-19 [facility] Comment on above: Performed By: #### L 500.2500 #### [facility] [address] [place], [address] Lactic Acidon 11-17-2024 Lactate [Moles/Vol] 2.0 mmol/L Normal 0.0-2.0 [facility] Comment on above: Order Comment: Y Result Comment: Crit ical Result(s) Called to Devonte BARONE (U): by Ike:??Results read back by same. Performed By: #### L 509.7001, L503.7505 #### [facility] [address] [place], [address] Basic Metabolic Profile (BMP )on 11-16-2024 BUN/CRE 17.4 RATIO Normal 10-20 [facility] Comment on above: Performed By: #### L 100.0100, L500.2500 #### [facility] [address] [place], [address] Calcium [Mass/Vol] 8.7 mg/dL Normal 7.6-11.0 [facility] Comment on above: Performed By: #### L 100.0100, L500.2500 #### [facility] [address] [place], [address] Chloride [Moles/Vol] 105 mmol/L Normal 98-108 [facility] Comment on above: Performed By: #### L 100.0100, L500.2500 #### [facility] [address] [place], [address] CO2 [Moles/Vol] 18.6 mmol/L Low 21.0-32.0 [facility] Comment on above: Performed By: #### L 100.0100, L500.2500 #### [facility] [address] [place], [address] Creatinine [Mass/Vol] 0.97 mg/dL Normal 0.70-1.20 [facility] Comment on above: Performed By: #### L 100.0100, L500.2500 #### [facility] [address] [place], [address] ECRCL 60.74 ml/min Normal 50-250 [facility] Comment on above: Performed By: #### L 100.0100, L500.2500 #### [facility] [address] [place], [address] GAP 15 Normal 5-15 [facility] Comment on above: Performed By: #### L 100.0100, L500.2500 #### [facility] [address] [place], [address] GFR/1.73 sq M.predicted among non-blacks MDRD (S/P/Bld) [Vol rate/Area] 79 mL/min/{1.73_m2} Normal >60 [facility] Comment on above: Result Comment: mL/m in/1.73m2 CKD-EPI Creatinine Equation (2020) Performed By: #### L 100.0100, L500.2500 #### [facility] [address] [place], [address] Glucose [Mass/Vol] 114 mg/dL High 70-99 [facility] Comment on above: Performed By: #### L 100.0100, L500.2500 #### [facility] [address] [place], [address] Potassium [Moles/Vol] 4.3 mmol/L Normal 3.3-5.1 [facility] Comment on above: Performed By: #### L 100.0100, L500.2500 #### [facility] [address] [place], [address] Sodium [Moles/Vol] 139 mmol/L Normal 133-145 [facility] Comment on above: Performed By: #### L 100.0100, L500.2500 #### [facility] [address] [place], [address] Urea nitrogen [Mass/Vol] 17 mg/dL Normal 4-19 [facility] Comment on above: Performed By: #### L 100.0100, L500.2500 #### [facility] [address] [place], [address] CBC W/Diff, Automatedon 05-0 9-2025 Absolute Lymph 0.64 X10 3/uL Low 0.83-4.51 [facility] Comment on above: Performed By: #### L 100.0100, L500.2500 #### [facility] [address] [place], [address] Absolute Neut 14.4 X10 3/uL High 2.0-7.7 [facility] Comment on above: Performed By: #### L 100.0100, L500.2500 #### [facility] [address] [place], [address] Basophils/100 WBC (Bld) 0.1 % Normal 0-1 [facility] Comment on above: Performed By: #### L 100.0100, L500.2500 #### [facility] [address] [place], [address] Eosinophils/100 WBC (Bld) 0.0 % Normal 0-5 [facility] Comment on above: Performed By: #### L 100.0100, L500.2500 #### [facility] [address] [place], [address] Erythrocyte distribution width (RBC) [Ratio] 13.4 % Normal 11.6-14.6 [facility] Comment on above: Performed By: #### L 100.0100, L500.2500 #### [facility] [address] [place], [address] Hematocrit (Bld) [Volume fraction] 42.5 % Normal 40-54 [facility] Comment on above: Performed By: #### L 100.0100, L500.2500 #### [facility] [address] [place], [address] Hemoglobin (Bld) [Mass/Vol] 13.8 g/dL Normal 13.0-16.5 [facility] Comment on above: Performed By: #### L 100.0100, L500.2500 #### [facility] [address] [place], [address] IG% 0.700 Normal 0.0-0.9 [facility] Comment on above: Result Comment: IG% - Immature Granulocytes (promyelocytes, myelocytes and metamyelocytes) > 1% indicates that a LEFT SHIFT is Present. Performed By: #### L 100.0100, L500.2500 #### [facility] [address] [place], [address] Lymphocytes/100 WBC (Bld) 4.2 % Low 19-41 [facility] Comment on above: Performed By: #### L 100.0100, L500.2500 #### [facility] [address] [place], [address] MCH (RBC) [Entitic mass] 31.5 pg Normal 27.0-32.0 [facility] Comment on above: Performed By: #### L 100.0100, L500.2500 #### [facility] [address] [place], [address] MCHC (RBC) [Mass/Vol] 32.5 g/dL Normal 32-36 [facility] Comment on above: Performed By: #### L 100.0100, L500.2500 #### [facility] [address] [place], [address] MCV (RBC) [Entitic vol] 97.0 fL High 80-94 [facility] Comment on above: Performed By: #### L 100.0100, L500.2500 #### [facility] [address] [place], [address] Monocytes/100 WBC (Bld) 0.9 % Normal 0-10 [facility] Comment on above: Performed By: #### L 100.0100, L500.2500 #### [facility] [address] [place], [address] Neutrophils/100 WBC (Bld) 94.1 % High 47-70 [facility] Comment on above: Performed By: #### L 100.0100, L500.2500 #### [facility] [address] [place], [address] Nucleated RBC (Bld) [#/Vol] 0 10*3/uL Normal 0-5 [facility] Comment on above: Performed By: #### L 100.0100, L500.2500 #### [facility] [address] [place], [address] Platelet mean volume (Bld) [Entitic vol] 9.2 fL Normal 6.2-12.0 [facility] Comment on above: Performed By: #### L 100.0100, L500.2500 #### [facility] [address] [place], [address] Platelets (Bld) [#/Vol] 242 10*3/uL Normal 150-450 [facility] Comment on above: Performed By: #### L 100.0100, L500.2500 #### [facility] [address] [place], [address] RBC (Bld) [#/Vol] 4.38 10*6/uL Low 4.6-6.2 [facility] Comment on above: Performed By: #### L 100.0100, L500.2500 #### [facility] [address] [place], [address] RDW SD 48.3 fl High 35.1-43.9 [facility] Comment on above: Performed By: #### L 100.0100, L500.2500 #### [facility] [address] [place], [address] WBC (Bld) [#/Vol] 15.3 10*3/uL High 4.4-11.0 [facility] Comment on above: Performed By: #### L 100.0100, L500.2500 #### [facility] [address] [place], [address] Consultation - Intensiviston 11-16-2024 Consultation - Development Director [facility] Records Department [address] [place] [address] Consultation - Development Director 11/16/24 0849 MR#: [id number] Acct: [id number] Name: NANETTE MONROY Rep #: [id number] : 1945 79 From: Harsh Manzo DO PCP: Dr. Fernandez Baig DO Status:ADM IN Location: [place] [address] Assessment Plan Assessment/Plan (1) COPD exacerbation: PLAN: [...] noted above. This note was generated with [address] dictation software. It may contain incorrect words, [...] admitted to the hospital for further management. 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, implants and grafts, initial encounter Nocturnal hypoxia Tobacco dependence in remission Chronic hypoxemic respiratory failure COPD (chronic obstructive pulmonary disease) Home Medications ???Medication ???Instructions ???Recorded ???Last Taken ???Type aspirin 81 mg tablet,delayed 81 mg PO DAILY@1999 heart [facility] 0 12/24/19 11/14/24 History release nitroglycerin 0.4 mg sublingual 0.4 mg sublingual Q5-15M PRN chest 03/22/22 Unknown Rx tablet pain #25 tabs Handicap Placcard #1 ea 07/29/22 Unknown Rx albuterol sulfate 2.5 mg/3 mL 2.5 mg (3 mL) inhalation Q4H #180 08/14/24 11/14/24 Rx (0.083 %) solution for nebulization mL albuterol sulfate 90 mcg/actuation 2 puff inhalation (more content not included)... Normal [facility] Echo Complete W/ Contraston 11-16-2024 Echo Complete W/ Contrast [facility] [address] [place] [address] Echo Complete W/ Contrast 11/16/24 1025 MR#: [id number] Acct: [id number] Name: NANETTE MONROY Rep #: [id number] : 1945 79 From: Dario Bar MD [...] Dictated: 11/16/24 1025 Date Transcribed: 11/16/24 1146 Maintenance Fitter: Signed [facility] Echocardiogram study reportO rdered By: Dario Bar on 11-16-2024 Study report [facility] [address] [place] [address] Echo Complete W/ Contrast 11/16/24 1025 MR#: [id number] Acct: [id number] Name: NANETTE MONROY Rep #:[id number] : 1945 79 From: Dario Bar MD Attending Dr: Dr. Rohan Henao MD Status: ADM IN Ordering Dr: Harsh Manzo DO Date: 04/04 Location: [facility] Sex: M C Admitted: 11/15/24 Reason For [...] Dictated: 11/16/24 1025 Date Transcribed: 11/16/24 1146 Maintenance Fitter: Signed [facility] Work Phone: Gram Stainon 11-16-2024 GS Acceptable Specimen? Yes (<25 Epithelial cells per/lpf) Gram Stain 4+ White Blood Cells 4+ Gram negative rods 4+ Gram positive rods 1+ Epithelial cells 1+ Gram positive cocci Normal [facility] Comment on above: Performed By: #### L 500.0644 #### [facility] [address] [place], [address] L503.7505on 11-16-2024 Natriuretic peptide B (Bld) [Mass/Vol] 503 pg/mL Normal <=1800 [facility] Comment on above: Result Comment: Hear t Failure Unlikely: < 300 pg/mL Heart Failure Likely < 50 Years: > 450 pg/mL 50-75 Years: > 900 pg/mL >75 Years: > 1800 pg/mL Performed By: #### L 509.7001, L503.7505 #### [facility] [address] [place], [place], [address] L509.7001on 11-16-2024 Procalcitonin 0.06 ng/mL Normal <=0.10 [facility] Comment on above: Result Comment: Inte rpretation: [...] Performed By: #### L 509.7001, L503.7505 #### [facility] [address] [place], [place], [address] Natriuretic peptide.B prohor bhavya N-Terminal [Mass/volume] in Serum or PlasmaOrdered By: Harsh Manzo on 11-16-2024 Natriuretic peptide.B prohormone N-Terminal [Mass/Vol] 503 pg/mL <1800 [facility] Comment on above: Heart Failure Unlike ly: < 300 pg/mLHeart Failure Likely< 50 Years: > 450 pg/mL50-75 Years: > 900 pg/mL>75 Years: > 1800 pg/mL Procalcitonin [Mass/volume] in Serum or Plasma by ImmunoassayOrdered By: Harsh Manzo on 11-16-2024 Procalcitonin IA [Mass/Vol] 0.06 ng/mL <0.11 [facility] Comment on above: Interpretation:<0.10 -0.25 ng/mL: Antibiotic [...] Auto (Unsp spec) [#/Vol] 1.35 10*3/uL 0.83-4.51 [facility] Absolute neutrophil countOrd ered By: Beau Costa on 11-15-2024 Neutrophils (Bld) [#/Vol] 17.3 10*3/uL High 2.0-7.7 [facility] Anion gap in Serum or Plasma Ordered By: Beau Costa on 11-15-2024 Anion gap [Moles/Vol] 12 mmol/L 5-15 [facility] Assessment of wrist artery p atency prior to arterial punctureOrdered By: Beau Costa on 11-15-2024 Arterial patency Wrist artery --pre arterial puncture Positive [facility] Automated lymphocyte count a s percentage of total leukocytesOrdered By: Beau Costa on 11-15-2024 Lymphocytes/100 WBC Auto (Unsp spec) 6.7 % Low 19-41 [facility] BUN/creatinine ratioOrdered By: Beau Costa on 11-15-2024 Urea nitrogen/Creatinine [Mass ratio] 14.0 mg/mg - [facility] Basic Metabolic Profile (BMP )on 11-15-2024 BUN/CRE 14.0 RATIO Normal - [facility] Comment on above: Performed By: #### L 500.2500 #### [facility] [address] [facility] [address] Calcium [Mass/Vol] 8.8 mg/dL Normal 7.6-11.0 [facility] Comment on above: Performed By: #### L 500.2500 #### [facility] [address] [place], [address] Chloride [Moles/Vol] 102 mmol/L Normal 98-108 [facility] Comment on above: Performed By: #### L 500.2500 #### [facility] [address] [place], [address] CO2 [Moles/Vol] 24.4 mmol/L Normal 21.0-32.0 [facility] Comment on above: Performed By: #### L 500.2500 #### [facility] [address] [place], [address] Creatinine [Mass/Vol] 0.87 mg/dL Normal 0.70-1.20 [facility] Comment on above: Performed By: #### L 500.2500 #### [facility] [address] [place], [address] GAP 12 Normal 5-15 [facility] Comment on above: Performed By: #### L 500.2500 #### [facility] [address] [place], [address] GFR/1.73 sq M.predicted among non-blacks MDRD (S/P/Bld) [Vol rate/Area] 87 mL/min/{1.73_m2} Normal >60 [facility] Comment on above: Result Comment: mL/m in/1.73m2 CKD-EPI Creatinine Equation (2020) Performed By: #### L 500.2500 #### [facility] [address] [place], [address] Glucose [Mass/Vol] 116 mg/dL High 70-99 [facility] Comment on above: Performed By: #### L 500.2500 #### [facility] [address] [place], [address] Potassium [Moles/Vol] 4.3 mmol/L Normal 3.3-5.1 [facility] Comment on above: Result Comment: Hemo lysis present, Results??could be affected. ?? Performed By: #### L 500.2500 #### [facility] [address] [place], [address] Sodium [Moles/Vol] 139 mmol/L Normal 133-145 [facility] Comment on above: Performed By: #### L 500.2500 #### [facility] [address] [place], [address] Urea nitrogen [Mass/Vol] 12 mg/dL Normal 4-19 [facility] Comment on above: Performed By: #### L 500.2500 #### [facility] [address] [place], [address] Basophil percentageOrdered B y: Beau Costa on 11-15-2024 Basophils/100 WBC (Bld) 0.2 % 0-1 [facility]IA R TEST Positive Normal [facility] Comment on above: Performed By: #### L 9000.0800 #### [facility] [address] [place], [address] Base excess Calc (Bld) [Moles/Vol] 2 mmol/L Normal -2 to +2 [facility] Comment on above: Performed By: #### L 9000.0800 #### [facility] [address] [place], [address] Blood Gas Type ART Normal [facility] Comment on above: Performed By: #### L 9000.0800 #### [facility] [address] [place], [address] CO2 [Moles/Vol] 28 mmol/L Normal [facility] Comment on above: Performed By: #### L 9000.0800 #### [facility] [address] [place], [address] FI02 5.0 Normal [facility] Comment on above: Performed By: #### L 9000.0800 #### [facility] [address] [place], [address] HCO3 (Bld) [Moles/Vol] 26.6 mmol/L High 22-26 [facility] Comment on above: Performed By: #### L 9000.0800 #### [facility] [address] [place], [address] Mode Not entered Normal [facility] Comment on above: Performed By: #### L 9000.0800 #### [facility] [address] [place], [address] O2 Delivery Dev Cannula Normal [facility] Comment on above: Performed By: #### L 9000.0800 #### [facility] [address] [place], [address] pCO2 39.9 mmHg Normal 35-45 [facility] Comment on above: Performed By: #### L 9000.0800 #### [facility] [address] [place], [address] pH (Bld) 7.43 [pH] Normal 7.35-7.45 [facility] Comment on above: Performed By: #### L 9000.0800 #### [facility] [address] [place], [address] PO2 86 mmHG Normal 75-100 [facility] Comment on above: Performed By: #### L 9000.0800 #### [facility] [address] [place], [address] SITE R Radial Normal [facility] Comment on above: Performed By: #### L 9000.0800 #### [facility] [address] [place], [address] SO2 97 Normal 95-99 [facility] Comment on above: Performed By: #### L 9000.0800 #### [facility] [address] [place], [address] Blood base excess determinat ionOrdered By: Beau Costa on 11-15-2024 Base excess Calc (BldV) [Moles/Vol] 2 mmol/L -2-2 [facility] Blood bicarbonate measuremen tOrdered By: Beau Costa on 11-15-2024 HCO3 (Bld) [Moles/Vol] 26.6 mmol/L High 22-26 [facility] CBC W/Diff, Automatedon 05-0 Absolute Lymph 1.35 X10 3/uL Normal 0.83-4.51 [facility] Comment on above: Performed By: #### L 500.2500 #### [facility] [address] [place], [address] Absolute Neut 17.3 X10 3/uL High 2.0-7.7 [facility] Comment on above: Performed By: #### L 500.2500 #### [facility] [address] [place], [address] Basophils/100 WBC (Bld) 0.2 % Normal 0-1 [facility] Comment on above: Performed By: #### L 500.2500 #### [facility] [address] [place], [address] Eosinophils/100 WBC (Bld) 0.2 % Normal 0-5 [facility] Comment on above: Performed By: #### L 500.2500 #### [facility] [address] [place], [address] Erythrocyte distribution width (RBC) [Ratio] 13.5 % Normal 11.6-14.6 [facility] Comment on above: Performed By: #### L 500.2500 #### [facility] [address] [place], [address] Hematocrit (Bld) [Volume fraction] 42.3 % Normal 40-54 [facility] Comment on above: Performed By: #### L 500.2500 #### [facility] [address] [place], [address] Hemoglobin (Bld) [Mass/Vol] 14.0 g/dL Normal 13.0-16.5 [facility] Comment on above: Performed By: #### L 500.2500 #### [facility] [address] [place], [address] IG% 0.400 Normal 0.0-0.9 [facility] Comment on above: Result Comment: IG% - Immature Granulocytes (promyelocytes, myelocytes and metamyelocytes) > 1% indicates that a LEFT SHIFT is Present. Performed By: #### L 500.2500 #### [facility] [address] [place], [address] Lymphocytes/100 WBC (Bld) 6.7 % Low 19-41 [facility] Comment on above: Performed By: #### L 500.2500 #### [facility] [address] [place], [address] MCH (RBC) [Entitic mass] 31.6 pg Normal 27.0-32.0 [facility] Comment on above: Performed By: #### L 500.2500 #### [facility] [address] [place], [address] MCHC (RBC) [Mass/Vol] 33.1 g/dL Normal 32-36 [facility] Comment on above: Performed By: #### L 500.2500 #### [facility] [address] [place], [address] MCV (RBC) [Entitic vol] 95.5 fL High 80-94 [facility] Comment on above: Performed By: #### L 500.2500 #### [facility] [address] [place], [address] Monocytes/100 WBC (Bld) 6.1 % Normal 0-10 [facility] Comment on above: Performed By: #### L 500.2500 #### [facility] [address] [place], [address] Neutrophils/100 WBC (Bld) 86.4 % High 47-70 [facility] Comment on above: Performed By: #### L 500.2500 #### [facility] [address] [place], [address] Nucleated RBC (Bld) [#/Vol] 0 10*3/uL Normal 0-5 [facility] Comment on above: Performed By: #### L 500.2500 #### [facility] [address] [place], [address] Platelet mean volume (Bld) [Entitic vol] 9.4 fL Normal 6.2-12.0 [facility] Comment on above: Performed By: #### L 500.2500 #### [facility] [address] [place], [address] Platelets (Bld) [#/Vol] 221 10*3/uL Normal 150-450 [facility] Comment on above: Performed By: #### L 500.2500 #### [facility] [address] [place], [address] RBC (Bld) [#/Vol] 4.43 10*6/uL Low 4.6-6.2 [facility] Comment on above: Performed By: #### L 500.2500 #### [facility] [address] [place], [address] RDW SD 47.7 fl High 35.1-43.9 [facility] Comment on above: Performed By: #### L 500.2500 #### [facility] [address] [place], [address] WBC (Bld) [#/Vol] 20.1 10*3/uL High 4.4-11.0 [facility] Comment on above: Performed By: #### L 500.2500 #### [facility] [address] [place], [address] CTA Chest W/WO Contraston CTA Chest W/WO Contrast [facility] Imaging Services [address] [place], [place] [address] CTA Chest W/WO Contrast MR#: [id number] Acct: [id number] Name: NANETTE MONROY Rep #: [id number] : 1945 M 79 From: Thom Montes MD PCP: Dr. Fernandez Baig, Status: REG ER Study: CTA Chest W/WO Contrast Date of Exam: 11/15/24 Exam# [id number] Ordering Dr: Beau Costa DO PROCEDURE: CTA [...] Fernandez Baig DO; Dr. Beau Costa DO Maintenance Fitter: Signed Normal [facility] Carbon dioxide, total [Moles /volume] in Central venous bloodOrdered By: Beau Costa on 11-15-2024 CO2 [Moles/Vol] 24.4 mmol/L 21.0-32.0 [facility] Chest PA and Lateralon 11-15 Chest PA and Lateral [facility] Imaging Services [address] [place] [id number] Chest PA and Lateral MR#: [id number] Acct: [id number] Name: NANETTE MONROY Rep #: [id number] : 1945 M 79 From: Thom Montes MD PCP: Dr. Fernandez Baig DO Status: [facility] ER Study: Chest PA and Lateral Date of Exam: 11/15/24 Exam# [id number] Ordering Dr: Beau Costa DO PROCEDURE: CHEST [...] Fernandez Baig DO; Dr. Beau Costa DO Maintenance Fitter: Signed Normal [facility] Chloride assayOrdered By: Rick Costa on 11-15-2024 Chloride [Moles/Vol] 102 mmol/L 98-108 [facility] D-Dimer Quantitative (DVT/PE )on 11-15-2024 D-DIMER QUANT 0.90 FEU/ug/m Invalid Interpretation Code 0.27-0.49 [facility] Comment on above: Result Comment: D-Di lenora ELEVATED (>0.49): Additional studies and clinical assessments are indicated to conclude diagnosis of: Deep Vein Thrombosis (DVT) or Pulmonary Embolism (PE) CRITICAL VALUE CALLED TO ALTAGRACIA 11/15/24 1101 Bree Simental. RESULTS READ BACK BY SAME. Performed By: #### L 500.2500 #### [facility] [address] [place], [address] Emergency Department Summary on 11-15-2024 Emergency Department Summary [facility] Medical Records Department [address] [place] [address] Emergency Department Summary 11/15/24 MR#: [id number] Acct: [id number] Name: NANETTE MONROY Rep #: [id number] : 1945 79 From: Beau Lane PCP: [...] or Recent travel Prior similar symptoms: Yes [facility] Medical History Old myocardial infarction Claudication, intermittent Premature ventricular contraction Hyperlipidemia Ischemic cardiomyopathy Atherosclerotic heart disease of [place] coronary artery without angina pectoris Displacement of [...] Denies dys (more content not included)... Normal [facility] Eosinophil percentageOrdered By: Beau Costa on 11-15-2024 Eosinophils/100 WBC (Bld) 0.2 % 0-5 [facility] Erythrocyte distribution wid th ratioOrdered By: Beau Costa on 11-15-2024 Erythrocyte distribution width (RBC) [Ratio] 13.5 % 11.6-14.6 [facility] Erythrocyte distribution wid th standard deviationOrdered By: Beau Costa on 11-15-2024 Erythrocyte distribution width (RBC) [Ratio] 47.7 fl High 35.1-43.9 [facility] Glomerular filtration rate ( GFR) estimation/1.73 sq m using serum, plasma, or whole bOrdered By: Beau Costa on 11-15-2024 GFR/1.73 sq M.predicted among non-blacks MDRD (S/P/Bld) [Vol rate/Area] 87 mL/min/{1.73_m2} >60 [facility] Comment on above: mL/min/1.73m2 CKD-EP I Creatinine Equation (2020) Gram stainOrdered By: Wilfredo Henao on 11-15-2024 Microscopic observation Gram stain Nom (Unsp spec) [facility] H AND P Exam - Hospitaliston 11-15-2024 H&P Exam - Hospitalist [facility] Medical Records Department [address] [place] [address] H P Exam - Hospitalist 11/15/24 1345 MR#: [id number] Acct: [id number] Name: NANETTE MONROY Rep #: [id number] : 1945 79 From: Rohan Henao MD PCP: Dr. Fernandez Baig, DO Status:ADM IN Location: [facility] [id number] HPI - General General Date of Admission: [...] was done and is discussed assessment plan. [facility] Medical History Old myocardial infarction Claudication, intermittent Premature ventricular contraction Hyperlipidemia Ischemic cardiomyopathy Atherosclerotic heart disease of pilot station coronary artery without angina pectoris Displacement of [...] injury Neurologic (more content not included)... Normal [facility] Hematocrit Auto (Bld) [Volum e fraction]Ordered By: Beau Costa on 11-15-2024 Hematocrit (Bld) [Volume fraction] 42.3 % 40-54 [facility] Hemoglobin measurementOrdere d By: Beau Costa on 11-15-2024 Hemoglobin (Bld) [Mass/Vol] 14.0 g/dL 13.0-16.5 [facility] Immature granulocytes/100 WB C Auto (Bld)Ordered By: Beau Costa on 11-15-2024 Immature granulocytes/100 WBC (Bld) 0.400 % 0.0-0.9 [facility] Comment on above: IG% - Immature Granu locytes (promyelocytes, myelocytes and metamyelocytes) > 1% indicates that a LEFT SHIFT is Present. L499.0042on 11-15-2024 Trop T High Sen 21 ng/L Normal <=22 [facility] Comment on above: Performed By: #### L 500.2500 #### [facility] [address] [place], [address] L499.0043on 11-15-2024 Trop T High Sen 20 ng/L Normal <=22 [facility] Comment on above: Performed By: #### L 499.0043 #### [facility] [address] [place], [address] L501.4021on 11-15-2024 Trop T High Sen 25 ng/L High <=22 [facility] Comment on above: Performed By: #### L 509.7001, L503.5455 #### [facility] [address] [place], [address] Legionella Antigen Urineon 0 11-15-2024 LEGU Comments: Only Recommended for severe cases of pneumonia Only Recommended for severe cases of pneumonia URINE, CLEAN CATCH Legionella Antigen result interpretation: L pneumo Ag Ur Ql Negative Presumptive negative for Legionella pneumophila serogroup 1 antigen in urine, suggesting no recent or current infection. Legionella Ag, Urine Negative (See interpretation below) Normal [facility] Comment on above: Performed By: #### L 509.7001, L503.7505 #### [facility] [address] [place], [place], [address] M100.019on 11-15-2024 M100.019 Negative Normal [facility] Comment on above: Performed By: #### L 500.2500 #### [facility] [address] [place], [address] MCV (mean corpuscular volume ) determinationOrdered By: Beau Costa on 11-15-2024 MCV (RBC) [Entitic vol] 95.5 fL High 80-94 [facility] Magnesiumon 11-15-2024 Magnesium [Mass/Vol] 2.1 mg/dL Normal 1.5-2.2 [facility] Comment on above: Performed By: #### L 501.5200 #### [facility] [address] [facility] [place], [place], [address] Magnesium measurement (mass/ volume)Ordered By: Rohan Henao on 11-15-2024 Magnesium (Unsp spec) [Mass/Vol] 2.1 mg/dL 1.5-2.2 [facility] Mean corpuscular hemoglobin (MCH) determinationOrdered By: Beau Costa on 11-15-2024 MCH (RBC) [Entitic mass] 31.6 pg 27.0-32.0 [facility] Mean corpuscular hemoglobin concentration (MCHC) determinationOrdered By: Beau Costa on 11-15-2024 MCHC (RBC) [Mass/Vol] 33.1 g/dL 32-36 [facility] Mean platelet volume determi nationOrdered By: Beau Costa on 11-15-2024 Platelet mean volume (Bld) [Entitic vol] 9.4 fL 6.2-12.0 [facility] Measurement, pHOrdered By: Shahid Costa on 11-15-2024 pH (Unsp spec) 7.43 [pH] 7.35-7.45 [facility] Microbial respiratory cultur eOrdered By: Rohan Henao on 11-15-2024 Microorganism identified Cx Nom (Unsp spec) Streptococcus pneumoniae Abnormal [facility] Microorganism identified Cx Nom (Unsp spec) Pseudomonas aeruginosa Abnormal [facility] Monocyte percentageOrdered B y: Beau Costa on 11-15-2024 Monocytes/100 WBC (Bld) 6.1 % 0-10 [facility] Neutrophil percentageOrdered By: Beau Costa on 11-15-2024 Neutrophils/100 WBC (Bld) 86.4 % High 47-70 [facility] No Panel InformationOrdered By: Beau Costa on 11-15-2024 Blood Gas Sample Site R Radial [facility] Blood Gas Specimen Type ART [facility] Blood Gas Vent Mode Not entered [facility] Oxygen Delivery Device Cannula [facility] Nucleated red blood cell per centageOrdered By: Beau Costa on 11-15-2024 Nucleated RBC/100 WBC (Bld) [Ratio] 0 % 0-5 [facility] Platelet countOrdered By: Rick Costa on 11-15-2024 Platelets (Bld) [#/Vol] 221 10*3/uL 150-450 [facility] Potassium measurement (mass/ volume)Ordered By: Beau Costa on 11-15-2024 Potassium (Unsp spec) [Mass/Vol] 4.3 mmol/L 3.3-5.1 [facility] Comment on above: Hemolysis present, R esults could be affected. RBC Auto (Bld) [#/Vol]Ordere d By: Beau Costa on 11-15-2024 RBC (Bld) [#/Vol] 4.43 10*6/uL Low 4.6-6.2 [facility] RESPIRATORY PANEL MOLECULARo n 11-15-2024 RP PANEL ADENOVIRUS Not Detected INFLUENZA A Not Detected INFLUENZA A (SUBTYPE H1) Not Detected INFLUENZA A (SUBTYPE H3) Not Detected INFLUENZA B Not Detected HUMAN METAPHNEUMO Not Detected PARAINFLUENZA 1 Not Detected PARAINFLUENZA 2 Not Detected PARAINFLUENZA 3 Not Detected PARAINFLUENZA 4 Not Detected RHINOVIRUS Not Detected RSV A Not Detected RSV B Not Detected Normal [facility] Comment on above: Performed By: #### L 509.7001, L503.7505 #### [facility] [place], [address] Respiratory pathogens detect ion panel by molecular detection methodOrdered By: Rohan Henao on 11-15-2024 Respiratory pathogens DNA and RNA panel MELY+probe (Resp) [facility] [id number] By: Wilfredo Henao on 11-15-2024 SARS-CoV-2 (COVID-19) RNA MELY+probe Ql (Unsp spec) [facility] Serum creatinine measurement (mass/volume)Ordered By: Beau Costa on 11-15-2024 Creatinine [Mass/Vol] 0.87 mg/dL 0.70-1.20 [facility] Serum glucose measurement (m ass/volume)Ordered By: Beau Costa on 11-15-2024 Glucose [Mass/Vol] 116 mg/dL High 70-99 [facility] Serum or plasma calcium todd urement (mass/volume)Ordered By: Beau Costa on 11-15-2024 Calcium [Mass/Vol] 8.8 mg/dL 7.6-11.0 [facility] Serum or plasma urea nitroge n measurement (mass/volume)Ordered By: Beau Costa on 11-15-2024 Urea nitrogen [Mass/Vol] 12 mg/dL 4-19 [facility] Sodium levelOrdered By: Beau Costa on 11-15-2024 Sodium [Moles/Vol] 139 mmol/L 133-145 [facility] Strep pneumoniae Antig(UR,CS F)on 11-15-2024 STPAG Comments: [...] Test Negative URINE (See interpretation below) Normal [facility] Comment on above: Performed By: #### L 509.7001, L503.7505 #### [facility] [place], [address] Total carbon dioxide measure mentOrdered By: Beau Costa on 11-15-2024 CO2 [Moles/Vol] 28 mmol/L [facility] Troponin T.cardiac [Mass/vol ume] in Serum or Plasma by High sensitivity methodOrdered By: Beau Costa on 11-15-2024 Troponin T.cardiac High sensitivity method [Mass/Vol] 20 ng/L <22 [facility] Troponin T.cardiac High sensitivity method [Mass/Vol] 21 ng/L <22 [facility] Troponin T.cardiac High sensitivity method [Mass/Vol] 25 ng/L High <22 [facility] Urine Legionella pneumophila antigen detectionOrdered By: Rohan Henao on 11-15-2024 L. pneumophila Ag Ql (U) [facility] White blood cell (WBC) count Ordered By: Beau Costa on 11-15-2024 WBC (Bld) [#/Vol] 20.1 10*3/uL High 4.4-11.0 [facility] CNOVon 10-26-2024 CNOV Office Visit (ESTEFANÍA) ---- NANETTE MONROY ([id number]) 1945 M Date Time Provider Department 10/26/24 2:30 PM ANASTASIYA FINK During your visit today, we recorded the following information about you: Anastasiya Fink AUD 10/31/2024 12:13 PM Signed [facility] [place] [facility] COCHLEAR IMPLANT ADULT PROGRAMMING Name: Nanette Monroy [facility]#: [id number] Date of Service: October 26, 2024 Date of : 1945 Age: [age] year old COCHLEAR IMPLANT INFORMATION (see below for all device details) RIGHT ear: External Processor: [employer]chle[employer] [id number] (N7) External Processor [employer] Nucleus 7 (Upgraded Sep 2021) Processor SN [id number] Magnet Strength 1M Internal Device Cochlear CI 512 Inactive electrodes E6-7 Surgery Date March 2016 Initial activation date May [address] Fox LEFT ear: Resound Nexia 960S-DRWC SN: [id number] with 1xMP and med power dome Fit and managed at an outside facility ([employer]) Wireless Accessory Set up Fee Paid: No HISTORY: Mr. Monroy was seen today to link his hearing aid in the Cochlear programming software upon return from office technician repair. Mr. Monroy reported the office technician sent a new hearing aid with a [...] Cochlear's software. Hearing aid was connected to [employer] software to ensure hearing aid had been programmed with most recent version of [employer]'s software. Device was placed in patient's filteration operator and removed from filteration operator which resolved issue with connecting to Cochlear's software. Additionally, while attempting to pair hearing aid and processor to patient's phone, both devices showed connected in Shoette mary, but streaming was only to the [...] Jacqueline Aceves BA Doctor of Audiology ([place]) Sock Lining Stitcher [place] Ni, [facility] Clinical and Hearing Implant Hydrogen Power Plant Manager Allergies As of Date: 10/26/2024 (Not on File) Date Reviewed: Never Reviewed Reason for Visit: Hearing Loss [1119] Problem With Cochlear Implant(s) [1123] Primary Visit Diagnosis:Sensorine ural hearing loss (SNHL) of both ears [H90.3] Other Visit Diagnosis:Cochlear implant in place [Z96.21] Problem List As Of Date: 10/26/2024 (None) Encounter Status:Closed by ANASTASIYA FINK on 10/31/24 [facility]NP[facility] 10-18-2024 CNPN Telephone (HNQ) ---- NANETTE MONROY ([id number]) 1945 M Date Time Provider Department 10/18/24 MATHEW GUDINO HNQ During your visit today, we recorded the following information about you: Mathew Gudino 10/18/2024 11:32 AM Signed Need to connect new THAYER to CI and get connected to phone. Got a repaired THAYER device. 10/26 2:30 opening TW Mathew Gudino Hearing Implant D[employer] House Vat Worker [email or web address] [email or web address] As of Date: 10/18/2024 (Not on File) Date Reviewed: Never Reviewed Problem List As Of Date: 10/18/2024 (None) Encounter Status:Closed by MATHEW GUDINO on 10/18/24 [facility] Pulmonary Visit Reporton Pulmonary Visit Report [facility] [place] [address] [place] [address] OFFICE VISIT Date of Service: 09/12/24 MR#: [id number] Acct: [id number] Name: NANETTE MONROY Rep #: [id number] : 1945 Provider: MIKAEL Bethea Age/Sex: 79/M Location: 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 Normal [facility] Cardiology Visit Reporton Cardiology Visit Report [facility] [address] [place] [address] OFFICE VISIT Date of Service: 09/11/24 MR#: [id number] Acct: [id number] Name: NANETTE MONROY Rep #: [id number] : 1945 Provider: MIKAEL ravi Age/Sex: 79/M Location: [facility] Status: Signed HPI HPI History of [...] 5 Intake Visit Reasons: 1 Y FU Recorder Helper Gravity Prospecting Required: No Is patient in pain?: No [...] No Nurse's Note: Needs refills sent to [facility] for losartan and isosorbide [facility] Medical History Old myocardial infarction Claudication, intermittent Premature ventricular contraction Hyperlipidemia Ischemic cardiomyopathy 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 Normal [facility] Pulmonary Visit Reporton Pulmonary Visit Report [facility] [place] [address] [place] [address] OFFICE VISIT Date of Service: 08/14/24 MR#: [id number] Acct: [id number] Name: NANETTE MONROY Rep #: [id number] : 1945 Provider: MIKAEL Bethea Age/Sex: 79/M Location: 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 Normal [facility] .Auto Diffon 07-16-2024 Basophil, Absolute 0.1 10 3/mcL Normal 0.0-0.2 [facility] Comment on above: Performed By: #### L IPID, CBC, ADIFF, ANEU, PSA #### [address] [address] Basophils/100 WBC (Bld) 0.7 % Normal 0.0-2.5 [facility] Comment on above: Performed By: #### L IPID, CBC, ADIFF, ANEU, PSA #### [address] [address] Eosinophil, Absolute 0.1 10 3/mcL Normal 0.0-0.7 [facility] Comment on above: Performed By: #### L IPID, CBC, ADIFF, ANEU, PSA #### [address] [address] Eosinophils/100 WBC (Bld) 1.4 % Normal 0.0-7.0 [facility] Comment on above: Performed By: #### L IPID, CBC, ADIFF, ANEU, PSA #### [address] [address] Lymphocyte, Absolute 1.2 10 3/mcL Normal 0.9-4.3 [facility] Comment on above: Performed By: #### L IPID, CBC, ADIFF, ANEU, PSA #### [address] [address] Lymphocytes/100 WBC (Bld) 12.6 % Low 20.0-40.0 [facility] Comment on above: Performed By: #### L IPID, CBC, ADIFF, ANEU, PSA #### [address] [address] Monocyte, Absolute 0.7 10 3/mcL Normal 0.1-1.4 [facility] Comment on above: Performed By: #### L IPID, CBC, ADIFF, ANEU, PSA #### [address] [address] Monocytes/100 WBC (Bld) 7.7 % Normal 2.0-13.0 [facility] Comment on above: Performed By: #### L IPID, CBC, ADIFF, ANEU, PSA #### [address] [address] Neutrophils/100 WBC (Bld) 77.6 % High 50.0-75.0 [facility] Comment on above: Performed By: #### L IPID, CBC, ADIFF, ANEU, PSA #### [address] [address] .GFRon 07-16-2024 GFR 81 ml/min/1.73sqm Normal [facility] Comment on above: Result Comment: GFR Population [...] Performed By: #### C MP, GFR #### [address] [address] GFR Non- 66 ml/min/1.73sqm Normal [facility] Comment on above: Result Comment: GFR Population [...] Performed By: #### C MP, GFR #### [place] [address] .NEUABSon 07-16-2024 Neutrophil, Absolute 7.2 10 3/mcL Normal 2.3-8.1 [facility] Comment on above: Performed By: #### L IPID, CBC, ADIFF, ANEU, PSA #### [place] [address] CBCon 07-16-2024 Erythrocyte distribution width (RBC) [Ratio] 13.7 % Normal 11.5-15.5 [facility] Comment on above: Performed By: #### L IPID, CBC, ADIFF, ANEU, PSA #### [place] [address] Hematocrit (Bld) [Volume fraction] 43.3 % Normal 40.0-52.0 [facility] Comment on above: Performed By: #### L IPID, CBC, ADIFF, ANEU, PSA #### [place] [address] Hgb 14.4 G/dL Normal 13.0-17.5 [facility] Comment on above: Performed By: #### L IPID, CBC, ADIFF, ANEU, PSA #### [place] [id number] MCH (RBC) [Entitic mass] 31.5 pg Normal 27.0-33.0 [facility] Comment on above: Performed By: #### L IPID, CBC, ADIFF, ANEU, PSA #### [address] [address] MCHC 33.3 G/dL Normal 32.0-36.0 [facility] Comment on above: Performed By: #### L IPID, CBC, ADIFF, ANEU, PSA #### [address] [address] MCV (RBC) [Entitic vol] 94.6 fL Normal 81.0-100.0 [facility] Comment on above: Performed By: #### L IPID, CBC, ADIFF, ANEU, PSA #### [address] [address] Platelet 234 10 3/mcL Normal 150-450 [facility] Comment on above: Performed By: #### L IPID, CBC, ADIFF, ANEU, PSA #### [address] [address] Platelet mean volume (Bld) [Entitic vol] 8.0 fL Normal 6.4-10.5 [facility] Comment on above: Performed By: #### L IPID, CBC, ADIFF, ANEU, PSA #### [address] [address] RBC 4.58 10 6/mcL Normal 4.50-6.00 [facility] Comment on above: Performed By: #### L IPID, CBC, ADIFF, ANEU, PSA #### [address] [address] WBC 9.2 10 3/mcL Normal 4.5-10.8 [facility] Comment on above: Performed By: #### L IPID, CBC, ADIFF, ANEU, PSA #### [address] [address] CMPon 07-16-2024 Albumin Level 3.3 G/dL Low 3.4-4.8 [facility] Comment on above: Performed By: #### C MP, GFR #### [place] [id number] Albumin/Globulin [Mass ratio] 0.9 {ratio} Low 1.1-2.5 [facility] Comment on above: Performed By: #### C MP, GFR #### [address] [address] ALP [Catalytic activity/Vol] 105 U/L Normal 40-135 [facility] Comment on above: Performed By: #### C MP, GFR #### [address] [address] ALT [Catalytic activity/Vol] 17 U/L Normal 16-63 [facility] Comment on above: Performed By: #### C MP, GFR #### [address] [address] AST [Catalytic activity/Vol] 18 U/L Normal 10-40 [facility] Comment on above: Performed By: #### C MP, GFR #### [address] [address] [address] Bili Total 0.5 mg/dL Normal 0.2-1.0 [facility] Comment on above: Result Comment: Use of this assay is not recommended for patients undergoing treatment with eltrombopag due to the potential for falsely elevated results. Performed By: #### C MP, GFR #### [address] [address] BUN/Creatinine Ratio 10 ratio Normal 7-27 [facility] Comment on above: Performed By: #### C MP, GFR #### [address] [address] Calcium [Mass/Vol] 8.9 mg/dL Normal 8.4-10.2 [facility] Comment on above: Performed By: #### C MP, GFR #### [address] [address] Chloride [Moles/Vol] 106 mmol/L Normal 98-107 [facility] Comment on above: Performed By: #### C MP, GFR #### [address] [address] CO2 [Moles/Vol] 27 mmol/L Normal 23-31 [facility] Comment on above: Performed By: #### C MP, GFR #### [address] [address] Creatinine [Mass/Vol] 1.07 mg/dL Normal 0.70-1.30 [facility] Comment on above: Result Comment: Test ing performed on Siemens Dimension EXL analyzer using a modified kinetic Dorothy technique. Performed By: #### C MP, GFR #### [address] [address] Electrolyte Balance 10.0 mEq/L Normal 4.0-15.0 [facility] Comment on above: Performed By: #### C MP, GFR #### [place] [address] Globulin 3.7 G/dL Normal [facility] Comment on above: Performed By: #### C MP, GFR #### [place] [address] Glucose [Mass/Vol] 105 mg/dL Normal 83-110 [facility] Comment on above: Performed By: #### C MP, GFR #### [address] [address] Potassium [Moles/Vol] 4.8 mmol/L Normal 3.5-5.1 [facility] Comment on above: Performed By: #### C MP, GFR #### [address] [address] Sodium [Moles/Vol] 143 mmol/L Normal 136-145 [facility] Comment on above: Performed By: #### C MP, GFR #### [address] [address] Total Protein 7.0 G/dL Normal 6.4-8.2 [facility] Comment on above: Performed By: #### C MP, GFR #### [address] [address] Urea nitrogen [Mass/Vol] 11 mg/dL Normal 7-18 [facility] Comment on above: Performed By: #### C MP, GFR #### [address] [address] LIPIDon 07-16-2024 Cholesterol [Mass/Vol] 138 mg/dL Normal 0-200 [facility] Comment on above: Result Comment: Chol esterol Reference Interval: Less than 200 Desirable 200-239 Borderline high risk 240 and above High risk Performed By: #### L IPID, CBC, ADIFF, ANEU, PSA #### [address] [address] Cholesterol in HDL [Mass/Vol] 64 mg/dL High 40-60 [facility] Comment on above: Performed By: #### L IPID, CBC, ADIFF, ANEU, PSA #### [address] [address] Cholesterol in LDL [Mass/Vol] 65 mg/dL Normal 0-130 [facility] Comment on above: Performed By: #### L IPID, CBC, ADIFF, ANEU, PSA #### [address] [address] Triglyceride [Mass/Vol] 44 mg/dL Normal 0-150 [facility] Comment on above: Result Comment: Trig lyceride Reference Interval: Less than 150 Normal 150-199 Borderline high risk 200-499 High risk 500 or higher Very high risk Performed By: #### L IPID, CBC, ADIFF, ANEU, PSA #### [address] [address] PSAon 07-16-2024 Prostate Specific Antigen 0.84 ng/mL Normal 0.00-4.00 [facility] Comment on above: Performed By: #### L IPID, CBC, ADIFF, ANEU, PSA #### [address] [address] CNPNgozi 06-20-2024 CNPN Telephone ([facility]) ---- NANETTE MONROY ([id number]) 1945 M Date Time Provider Department 06/20/24 [...] and call back. Mathew Gudino [facility] Vat Worker Mathew Gudino 06/20/2024 4:12 PM Signed The mary for the hearing aid is frozen when you go in to use it. He used to be able to adjust different settings. If he puts the THAYER back in the filteration operator and bring it back then he gets it back but then as soon as he turns it off then he loses it again. Working right now, is able to stream to both ears. I will check in tomorrow and see if it resolves once the hearing aid has charged all night. Mathew Gudino [facility] Vat Worker Mathew Gudino 06/21/2024 4:39 PM Signed Followed up to see if Nanette was able to resolve concerns. NO further issues Mathew Gudino [facility] Vat Worker Allergies As of Date: 06/20/2024 (Not on File) Date Reviewed: Never Reviewed Reason for Visit: Patient Question [3117] Problem List As Of Date: 06/20/2024 (None) Encounter Status:Closed by MATHEW GUDINO on 06/21/24 [facility] Samy 06-19-2024 CNOV Office Visit (CRISTINE) ---- NANETTE MONROY ([id number]) 1945 M Date Time Provider Department 06/19/24 10:30 AM ANASTASIYA FINK During your visit today, we recorded the following information about you: Anastasiya Fink AUD 06/26/2024 10:36 PM Signed [facility] [place] [facility] COCHLEAR IMPLANT ADULT PROGRAMMING Name: Nanette Monroy [facility]#:[id number] Date of Service: 06/19/2024 Date of : 1945 Age: [age] year old COCHLEAR IMPLANT INFORMATION (see below for all device details) RIGHT ear: External Processor: Cochlear [employer] [id number] (N7) External Processor Cochlear [employer] Nucleus 7 (Upgraded Sep 2021) Processor SN [id number] Magnet Strength 1M Internal Device Cochlear CI 512 Inactive electrodes E6-7 Surgery Date March 2016 Initial activation date May [address] Fox LEFT ear: Resound Nexia [id number]-DRWC SN: [id number] with 1xMP and [employer] dome Fit and managed at an outside facility ([facility]) Wireless Accessory Set up Fee Paid: No [...] his managing ENT instead of establishing with [facility] ENT * Feels he hears better with his new hearing aid. Would like to have this managed at [facility] AIDED AUDIOMETRIC TESTING: Audiologic testing was completed in the sound field with the speech processor(s) at user settings (Program: 1; Volume: 6; Sensitivity: 12.) before programming. See the [employer] Audiogram for obtained thresholds. Speech perception testing was completed at 60 farm implement mechanic using recorded stimuli in the sound field at 0 degrees azimuth. NOTE: The contralateral ear was plugged and muffed or masked during testing. The following testing and results were obtained: Tguapjvba-Nhzrzsf-U onsonant Words (CNC) Test Condition List # [...] 35 dB HL from 250-500 Hz and 1707-1104 Hz. Baseline speech measures obtained today demonstrate [...] Cochlear fo (more content not included)... Normal [facility] HEARING IMPLANTABLE DEVICES (E.G. COCHLEAR IMPLANTS (CI), BONE ANCHORED (SABINO), SENSORY DEVICES)on 06-19-2024 [facility] CNPNon 04-16-2024 CNPN Telephone (HNQ) ---- NANETTE MONROY ([id number]) 1945 M Date Time Provider Department 04/16/24 MATHEW GUDINO HNQ During your visit today, we recorded the following information about you: Mtahew Gudino 04/16/2024 4:11 PM Signed Fit with THAYER- Phonak, recommended Nexia from [employer]. Ordered a demo for him to try. Coming in to fit with demo. Questions about phone pairing to hearing aid THAYER through- has to May 21 to do exchange [place] [place] Allergies As of Date: 04/16/2024 (Not on File) Date Reviewed: Never Reviewed Problem List As Of Date: 04/16/2024 (None) Encounter Status:Closed by MATHEW GUDINO on 04/16/24 Normal [facility] CNOVon 04-03-2024 CNOV Office Visit (CRISTINE) ---- NANETTE MONROY ([id number]) 1945 M Date Time Provider Department 04/03/24 10:30 AM ANASTASIYA FINK During your visit today, we recorded the following information about you: Anastasiya Fink AUD 04/03/2024 12:58 PM Signed [facility] [place] [facility] COCHLEAR IMPLANT ADULT PROGRAMMING Name: Nanette Monroy [facility]#: [id number] Date of Service: April 03, 2024 Date of : 1945 Age: [age] year old COCHLEAR IMPLANT INFORMATION (see below for all device details) Updated: April 03, 2024 RIGHT ear: External Processor: Cochlear Americas [id number] (N7) External Processor Cochlear [employer] Nucleus 7 (Upgraded Sep 2021) Processor SN [id number] Magnet Strength 1M Internal Device Cochlear CI 512 Inactive electrodes E6-7 Surgery Date March 2016 Initial activation date May [address] Fox LEFT ear: Phonak Audeo L90-RL with 2M sap bobj developer and med vented dome Fit and managed at an outside facility ([place]) Wireless Accessory Set up Fee Paid: No [...] Cochlear and they recommended he schedule with [facility] * Recently dropped processor and it stopped [...] ear (a few weeks ago), managed at [place] in [place]. Hydrogen Power Plant Manager there told him she did not want to make too many changes to his hearing aid programming until he had his implant reprogrammed * Has not been hearing well on the phone when using Bluetooth streaming to left hearing aid * Reported he received some insurance coverage ([place] [employer] supplement) towards his hearing aid, but [...] or One. Recommend patient return to fitting juke box mechanic to determine if hearing aid can be exchanged for a Resound device. If that clinic unable to work with Resound, offered for patient to return to [facility] for fitting of a Resound device. COCHLEAR [...] Technologies: Th (more content not included)... Normal [facility] Pulmonary Visit Reporton Pulmonary Visit Report [facility] [place] [address] [place], [place] [id number] OFFICE VISIT Date of Service: 02/02/24 MR#: [id number] Acct: [id number] Name: NANETTE MONROY Rep #: [id number] : 1945 Provider: MIKAEL Bethea Age/Sex: 78/M Location: [facility].PMW Status: Signed Assessment and Plan Assessment and [...] months. 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 Normal [facility] Basophil percentageOrdered B y: Wilberto Tillman on 10-24-2023 Bilirubin [Mass/Vol] 0.40 mg/dL 0.20-1.00 [facility] Comment on above: For patients on eltr ombopag therapy, use of Dimension [place] TBIL is not recommended. Cholesterol [Mass/Vol] 120 mg/dL <200 [facility] Comment on above: <200 mg/dL Desirable 200-240 mg/dL Borderline >240 mg/dL High Risk Protein [Mass/Vol] 7.4 g/dL 6.4-8.2 [facility] Triglyceride [Mass/Vol] 48 mg/dL <199 [facility] Comment on above: The drugs N-Acetylcy steine and Metamizole may falsely depress this assay.Serum Triglycerides Reference Interval Normal <150 mg/dL Borderline high 150 - 199 mg/dL High 200 - 499 mg/dL Very High > or = 500 mg/dL Direct bilirubinOrdered By: Wilberto Tillman on 10-24-2023 Bilirubin.direct [Mass/Vol] 0.15 mg/dL 0.00-0.30 [facility] Laboratory - Chemistry and C hemistry - challengeOrdered By: Wilberto Tillman on 10-24-2023 ALP [Catalytic activity/Vol] 89 U/L 45-117 [facility] ALT [Catalytic activity/Vol] 15 U/L 16-61 [facility] Cholesterol in HDL [Mass/Vol] 52 mg/dL >40 [facility] Comment on above: The drugs N-Acetylcy steine and Metamizole may falsely depress this assay. Reference Range HDL <40 mg/dL Low HDL Cholesterol HDL >or= 60 mg/dL High HDL Cholesterol Cholesterol in LDL [Mass/Vol] 58 mg/dL 0-130 [facility] Globulin (S) [Mass/Vol] 4.1 g/dL 2.2-4.2 [facility] No Panel InformationOrdered By: Wilberto Tillman on 10-24-2023 VLDL Cholesterol 10 mg/dL 5-40 [facility] Thin prep Papanicolaou smear with manual screeningOrdered By: Wilberto Tillman on 10-24-2023 Thin prep Papanicolaou smear with manual screening 3.3 g/dL 3.2-5.0 [facility] Thin prep Papanicolaou smear with manual screening 16 U/L 15-37 [facility] .Auto Diffon 07-07-2023 Basophil, Absolute 0.1 10 3/mcL Normal 0.0-0.3 [facility] ([place]) Comment on above: Performed By: #### A NICO, LIPID, ADIFF, GFR, CBC, PSA, CMP #### [address] [address] Basophils/100 WBC (Bld) 0.7 % Normal 0.0-2.5 A [facility] ([place]) Comment on above: Performed By: #### A NICO, LIPID, ADIFF, GFR, CBC, PSA, CMP #### [address] [address] Eosinophil, Absolute 0.2 10 3/mcL Normal 0.0-0.7 Replaced by [facility] ([place]) Comment on above: Performed By: #### A NICO, LIPID, ADIFF, GFR, CBC, PSA, CMP #### [address] [address] Eosinophils/100 WBC (Bld) 1.9 % Normal 0.0-6.0 [facility] ([place]) Comment on above: Performed By: #### A NICO, LIPID, ADIFF, GFR, CBC, PSA, CMP #### [address] [address] Lymphocyte, Absolute 1.1 10 3/mcL Normal 0.9-4.3 Replaced by [facility] ([place]) Comment on above: Performed By: #### A INCO, LIPID, ADIFF, GFR, CBC, PSA, CMP #### [address] [address] Lymphocytes/100 WBC (Bld) 11.7 % Low 20.0-40.0 [facility] ([place]) Comment on above: Performed By: #### A NICO, LIPID, ADIFF, GFR, CBC, PSA, CMP #### [address] [address] Monocyte, Absolute 0.8 10 3/mcL Normal 0.1-1.4 [facility] ([place] Comment on above: Performed By: #### A NICO, LIPID, ADIFF, GFR, CBC, PSA, CMP #### [address] [address] Monocytes/100 WBC (Bld) 9.1 % Normal 2.0-13.0 A [facility] ([place]) Comment on above: Performed By: #### A NICO, LIPID, ADIFF, GFR, CBC, PSA, CMP #### [address] [address] Neutrophils/100 WBC (Bld) 76.6 % High 50.0-75.0 [facility] ([place]) Comment on above: Performed By: #### A NICO, LIPID, ADIFF, GFR, CBC, PSA, CMP #### [address] [address] .GFRon 07-07-2023 GFR >60 Normal [facility] ([place]) Comment on above: Result Comment: GFR Population [...] LIPID, ADIFF, GFR, CBC, PSA, CMP #### [address] [address] GFR Non- >60 Normal [facility] ([place]) Comment on above: Result Comment: GFR Population [...] LIPID, ADIFF, GFR, CBC, PSA, CMP #### [address] [address] .NEUABSon 07-07-2023 Neutrophil, Absolute 7.1 10 3/mcL Normal 2.3-8.1 Replaced by [facility] ([place]) Comment on above: Performed By: #### A NICO, LIPID, ADIFF, GFR, CBC, PSA, CMP #### [address] [address] CBCon 07-07-2023 Erythrocyte distribution width (RBC) [Ratio] 12.8 % Normal 11.5-15.5 [facility] ([place]) Comment on above: Performed By: #### A NICO, LIPID, ADIFF, GFR, CBC, PSA, CMP #### [address] [address] Hematocrit (Bld) [Volume fraction] 42.0 % Normal 40.0-52.0 [facility] ([place]) Comment on above: Performed By: #### A NICO, LIPID, ADIFF, GFR, CBC, PSA, CMP #### [place] [address] Hgb 14.1 G/dL Normal 13.0-17.5 [facility] ([place]) Comment on above: Performed By: #### A NICO, LIPID, ADIFF, GFR, CBC, PSA, CMP #### [place] [address] MCH (RBC) [Entitic mass] 31.9 pg Normal 27.0-33.0 [facility] ([place]) Comment on above: Performed By: #### A NICO, LIPID, ADIFF, GFR, CBC, PSA, CMP #### [place] [address] MCHC 33.5 G/dL Normal 32.0-36.0 [facility] ([place]) Comment on above: Performed By: #### A NICO, LIPID, ADIFF, GFR, CBC, PSA, CMP #### [place] [address] MCV (RBC) [Entitic vol] 95.1 fL Normal 81.0-100.0 A [facility] ([place]) Comment on above: Performed By: #### A NICO, LIPID, ADIFF, GFR, CBC, PSA, CMP #### [place] [address] Platelet 305 10 3/mcL Normal 150-450 [facility] ([place]) Comment on above: Performed By: #### A NICO, LIPID, ADIFF, GFR, CBC, PSA, CMP #### [place] [address] Platelet mean volume (Bld) [Entitic vol] 7.8 fL Normal 6.4-10.5 [facility] ([place]) Comment on above: Performed By: #### A NICO, LIPID, ADIFF, GFR, CBC, PSA, CMP #### [place] [address] RBC 4.42 10 6/mcL Low 4.50-6.00 [facility] ([place]) Comment on above: Performed By: #### A NICO, LIPID, ADIFF, GFR, CBC, PSA, CMP #### [address] [address] WBC 9.3 10 3/mcL Normal 4.5-10.8 [facility] ([place]) Comment on above: Performed By: #### A NICO, LIPID, ADIFF, GFR, CBC, PSA, CMP #### [address] [address] CMPon 07-07-2023 Albumin Level 3.5 G/dL Normal 3.2-4.8 [facility] ([place]) Comment on above: Performed By: #### A NICO, LIPID, ADIFF, GFR, CBC, PSA, CMP #### [address] [address] Albumin/Globulin [Mass ratio] 1.0 {ratio} Normal 0.9-1.6 [facility] ([place]) Comment on above: Performed By: #### A NICO, LIPID, ADIFF, GFR, CBC, PSA, CMP #### [address] [address] ALP [Catalytic activity/Vol] 103 U/L Normal 38-126 [facility] ([place]) Comment on above: Performed By: #### A NICO, LIPID, ADIFF, GFR, CBC, PSA, CMP #### [address] [address] ALT [Catalytic activity/Vol] 14 U/L Normal 12-55 [facility] ([place]) Comment on above: Performed By: #### A NICO, LIPID, ADIFF, GFR, CBC, PSA, CMP #### [address] [address] AST [Catalytic activity/Vol] 17 U/L Normal 8-34 [facility] ([place]) Comment on above: Performed By: #### A NICO, LIPID, ADIFF, GFR, CBC, PSA, CMP #### [place] [id number] Bili Total 0.60 mg/dL Normal 0.20-1.20 [facility] ([place]) Comment on above: Result Comment: Use of this assay is not recommended for patients undergoing treatment with eltrombopag due to the potential for falsely elevated results. Performed By: #### A NICO, LIPID, ADIFF, GFR, CBC, PSA, CMP #### [address] [address] BUN/Creatinine Ratio 13.5 ratio Normal 10.0-22.0 [facility] ([place]) Comment on above: Performed By: #### A NICO, LIPID, ADIFF, GFR, CBC, PSA, CMP #### [place] [id number] Calcium [Mass/Vol] 9.0 mg/dL Normal 8.7-10.4 [facility] ([place]) Comment on above: Performed By: #### A NICO, LIPID, ADIFF, GFR, CBC, PSA, CMP #### [place] [id number] Chloride [Moles/Vol] 106 mmol/L Normal 98-110 [facility] ([place] Comment on above: Performed By: #### A NICO, LIPID, ADIFF, GFR, CBC, PSA, CMP #### [place] [id number] CO2 [Moles/Vol] 32 mmol/L Normal 22-32 [facility] ([place]) Comment on above: Performed By: #### A NICO, LIPID, ADIFF, GFR, CBC, PSA, CMP #### [place] [id number] Creatinine [Mass/Vol] 0.89 mg/dL Normal 0.60-1.40 [facility] ([place]) Comment on above: Performed By: #### A NICO, LIPID, ADIFF, GFR, CBC, PSA, CMP #### [place] [id number] Electrolyte Balance 4.0 mEq/L Normal 4.0-15.0 [facility] ([place]) Comment on above: Performed By: #### A NICO, LIPID, ADIFF, GFR, CBC, PSA, CMP #### [address] [address] Globulin 3.4 G/dL Normal 1.5-3.8 [facility] ([place]) Comment on above: Performed By: #### A NICO, LIPID, ADIFF, GFR, CBC, PSA, CMP #### [address] [address] Glucose [Mass/Vol] 93 mg/dL Normal 82-115 [facility] ([place]) Comment on above: Performed By: #### A NICO, LIPID, ADIFF, GFR, CBC, PSA, CMP #### [address] [address] Potassium [Moles/Vol] 4.8 mmol/L Normal 3.5-5.0 [facility] ([place]) Comment on above: Performed By: #### A NICO, LIPID, ADIFF, GFR, CBC, PSA, CMP #### [address] [address] Sodium [Moles/Vol] 142 mmol/L Normal 136-145 [facility] ([place]) Comment on above: Performed By: #### A NICO, LIPID, ADIFF, GFR, CBC, PSA, CMP #### [address] [address] Total Protein 6.9 G/dL Normal 5.7-8.2 [facility] ([place]) Comment on above: Result Comment: No te - New Reference Range in effect 20 Performed By: #### A NICO, LIPID, ADIFF, GFR, CBC, PSA, CMP #### [address] [address] Urea nitrogen [Mass/Vol] 12.0 mg/dL Normal 8.0-22.0 [facility] ([place]) Comment on above: Performed By: #### A NICO, LIPID, ADIFF, GFR, CBC, PSA, CMP #### [address] [address] LIPIDon 07-07-2023 Cholesterol [Mass/Vol] 160 mg/dL Normal 50-199 Replaced by [facility] ([place]) Comment on above: Result Comment: Chol esterol Reference Interval: Less than 200 Desirable 200-239 Borderline high risk 240 and above High risk Performed By: #### A NICO, LIPID, ADIFF, GFR, CBC, PSA, CMP #### [address] [address] Cholesterol in HDL [Mass/Vol] 56 mg/dL Normal 40-59 [facility] ([place]) Comment on above: Performed By: #### A NICO, LIPID, ADIFF, GFR, CBC, PSA, CMP #### [address] [address] Cholesterol in LDL [Mass/Vol] 93 mg/dL Normal 0-129 [facility] ([place]) Comment on above: Performed By: #### A NICO, LIPID, ADIFF, GFR, CBC, PSA, CMP #### [address] [address] Triglyceride [Mass/Vol] 56 mg/dL Normal 3-149 A [facility] ([place]) Comment on above: Performed By: #### A NICO, LIPID, ADIFF, GFR, CBC, PSA, CMP #### [address] [address] PSAon 07-07-2023 Prostate Specific Antigen 0.55 ng/mL Normal 0.02-4.00 [facility] ([place]) Comment on above: Result Comment: Shelby ent results determined by assays using different manufacturers for methods may not be comparable. Performed By: #### A NICO, LIPID, ADIFF, GFR, CBC, PSA, CMP #### [address] [address] .GFRon 01-07-2023 GFR >60 Normal [facility] ([place]) Comment on above: Result Comment: GFR Population [...] L IPID, BMP, GFR, HCV1, TCANC #### [address] [address] GFR Non- >60 Normal [facility] ([place]) Comment on above: Result Comment: GFR Population [...] L IPID, BMP, GFR, HCV1, TCANC #### [address] [address] BMPon 01-07-2023 BUN/Creatinine Ratio 14.8 ratio Normal 10.0-22.0 [facility] ([place] Comment on above: Performed By: #### L IPID, BMP, GFR, HCV1, TCANC #### [address] [address] Calcium [Mass/Vol] 9.3 mg/dL Normal 8.7-10.4 [facility] ([place]) Comment on above: Performed By: #### L IPID, BMP, GFR, HCV1, TCANC #### [address] [address] Chloride [Moles/Vol] 107 mmol/L Normal 98-110 [facility] ([place] Comment on above: Performed By: #### L IPID, BMP, GFR, HCV1, TCANC #### [address] [address] CO2 [Moles/Vol] 28 mmol/L Normal 22-32 [facility] ([place]) Comment on above: Performed By: #### L IPID, BMP, GFR, HCV1, TCANC #### [address] [address] Creatinine [Mass/Vol] 0.88 mg/dL Normal 0.60-1.40 [facility] ([place]) Comment on above: Performed By: #### L IPID, BMP, GFR, HCV1, TCANC #### [address] [address] Electrolyte Balance 7.0 mEq/L Normal 4.0-15.0 [facility] ([place]) Comment on above: Performed By: #### L IPID, BMP, GFR, HCV1, TCANC #### [place] [id number] Glucose [Mass/Vol] 90 mg/dL Normal 82-115 [facility] ([place] Comment on above: Performed By: #### L IPID, BMP, GFR, HCV1, TCANC #### [address] [address] Potassium [Moles/Vol] 5.5 mmol/L High 3.5-5.0 [facility] ([place]) Comment on above: Result Comment: Spec imen slightly hemolyzed. Performed By: #### L IPID, BMP, GFR, HCV1, TCANC #### [address] [address] Sodium [Moles/Vol] 142 mmol/L Normal 136-145 [facility] ([place]) Comment on above: Performed By: #### L IPID, BMP, GFR, HCV1, TCANC #### [address] [address] Urea nitrogen [Mass/Vol] 13.0 mg/dL Normal 8.0-22.0 [facility] ([place]) Comment on above: Performed By: #### L IPID, BMP, GFR, HCV1, TCANC #### [place] [id number] HCVon 01-07-2023 Hep C Ab Non-Reactive Normal Non-Reactive [facility] ([place]) Comment on above: Performed By: #### A NICO, LIPID, ADIFF, GFR, CBC, PSA, CMP #### [address] [address] Hep C Ab Int Normal [facility] ([place]) Comment on above: Result Comment: Nonr eactive: [...] LIPID, ADIFF, GFR, CBC, PSA, CMP #### [address] [address] LIPIDon 01-07-2023 Cholesterol [Mass/Vol] 155 mg/dL Normal 50-199 [facility] [facility] ([place]) Comment on above: Result Comment: Chol esterol Reference Interval: Less than 200 Desirable 200-239 Borderline high risk 240 and above High risk Performed By: #### A NICO, LIPID, ADIFF, GFR, CBC, PSA, CMP #### [address] [address] Cholesterol in HDL [Mass/Vol] 57 mg/dL Normal 40-59 [facility] ([place]) Comment on above: Performed By: #### A NICO, LIPID, ADIFF, GFR, CBC, PSA, CMP #### [address] [address] Cholesterol in LDL [Mass/Vol] 81 mg/dL Normal 0-129 [facility] ([place]) Comment on above: Performed By: #### A NICO, LIPID, ADIFF, GFR, CBC, PSA, CMP #### [address] [address] Triglyceride [Mass/Vol] 83 mg/dL Normal 3-149 A [facility] ([place]) Comment on above: Performed By: #### A NICO, LIPID, ADIFF, GFR, CBC, PSA, CMP #### [address] [address] [facility]ANCon 01-07-2023 Test cancelled: CBC Normal [facility] ([place]) Comment on above: Performed By: #### L IPID, BMP, GFR, HCV1, TCANC #### [facility] [address] [place] [address] Basophil percentageon 2021 Chloride [Moles/Vol] 109 mmol/L 98-107 [facility] Work Phone: Glucose [Mass/Vol] 98 mg/dL 74-106 [facility] Work Phone: Potassium [Moles/Vol] 4.7 mmol/L 3.5-5.1 [facility] Work Phone: Sodium [Moles/Vol] 141 mmol/L 136-145 [facility] Work Phone: Laboratory - Chemistry and C hemistry - challengeon 12-14-2021 CO2 [Moles/Vol] 29.0 mmol/L 21.0-32.0 [facility] Work Phone: Natriuretic peptide B (Bld) [Mass/Vol] 84.0 pg/mL 0-100 [facility] Work Phone: Urea nitrogen/Creatinine [Mass ratio] 13.9 mg/mg 10-20 [facility] Work Phone: No Panel Informationon 12-14 Estimated GFR (MDRD) Amer 101 mL/min >60 [facility] Work Phone: Comment on above: GFR Calc Estimated GFR (MDRD) Non-Af Amer 83 mL/min >60 [facility] Work Phone: Comment on above: Non- GFR Calc Serum or plasma calcium todd urement (mass/volume)on 12-14-2021 Calcium [Mass/Vol] 8.7 mg/dL 8.5-10.1 [facility] Work Phone: Serum or plasma creatinine m easurement (mass/volume)on 12-14-2021 Creatinine [Mass/Vol] 0.93 mg/dL 0.70-1.30 [facility] Work Phone: Comment on above: The validity of the calculated GFR & GFRAA in patients over 70 years has not been determined. Clinical correlation is essential. Serum or plasma urea nitroge n measurement (mass/volume)on 12-14-2021 Urea nitrogen [Mass/Vol] 13 mg/dL 7-18 [facility] Work Phone: Thin prep Papanicolaou smear with manual screeningon 12-14-2021 Thin prep Papanicolaou smear with manual screening 3 5-15 [facility] Work Phone: LABORATORYOrdered By: Michoacano Carty on [...] /min Dr. Fernandez Baig DO Work Phone: [facility] 11-19-2024 10:46-0400 Respiratory rate 16 /min Dr. Fernandez Baig DO Work Phone: [facility] 11-19-2024 09:09-0400 Body temperature 97.9 [degF] Dr. Fernandez Baig DO Work Phone: [facility] 11-19-2024 09:09-0400 Diastolic blood pressure 72 mm[Hg] Dr. Fernandez Baig DO Work Phone: [facility] 11-19-2024 09:09-0400 Inhaled oxygen flow rate 6 L/min Dr. Fernandez Baig DO Work Phone: [facility] 11-19-2024 09:09-0400 SaO2% (BldA) [Mass fraction] 98 % Dr. Fernandez Baig DO Work Phone: [facility] 11-19-2024 09:09-0400 Systolic blood pressure 133 mm[Hg] Dr. Fernandez Baig DO Work Phone: [facility] 11-16-2024 10:45-0400 Body height 175.[address] Fernandez Baig DO Work Phone: [facility] 11-16-2024 10:45-0400 Body weight 81.[address] Fernandez Baig DO Work Phone: [facility] 11-15-2024 15:09-0400 Body mass index (BMI) [Ratio] 26.6 kg/m2 Dr. Fernandez Baig DO Work Phone: [facility] 11-15-2024 14:00-0400 Diastolic blood pressure 85 mm[Hg] Dr. Fernandez Baig DO Work Phone: [facility] 11-15-2024 14:00-0400 Inhaled oxygen flow rate 5 L/min Dr. Fernandez Baig DO Work Phone: [facility] 11-15-2024 14:00-0400 SaO2% (BldA) [Mass fraction] 94 % Dr. Fernandez Baig DO Work Phone: [facility] 11-15-2024 14:00-0400 Systolic blood pressure 130 mm[Hg] Dr. Fernandez Baig DO Work Phone: [facility] 11-15-2024 13:05-0400 Body temperature 98.7 [degF] Dr. Fernandez Baig DO Work Phone: [facility] 11-15-2024 13:05-0400 Heart rate 83 /min Dr. Fernandez Baig DO Work Phone: [facility] 11-15-2024 13:05-0400 Respiratory rate 21 /min Dr. Fernandez Baig DO Work Phone: [facility] 11-15-2024 10:00-0400 Body height 175.[address] Fernandez Baig DO Work Phone: [facility] 09-12-2024 07:50-0500 Body mass index (BMI) [Ratio] 26.6 kg/m2 Dr. Fernandez Baig DO Work Phone: [facility] 09-12-2024 07:50-0500 Body temperature 98.4 [degF] Dr. Fernandez Baig DO Work Phone: [facility] 09-12-2024 07:50-0500 Body weight 81.[address] Fernandez Baig DO Work Phone: [facility] 09-12-2024 07:50-0500 Diastolic blood pressure 73 mm[Hg] Dr. Fernandez Baig DO Work Phone: [facility] 09-12-2024 07:50-0500 Heart rate 72 /min Dr. Fernandez Baig DO Work Phone: [facility] 09-12-2024 07:50-0500 Inhaled oxygen flow rate 4 L/min Dr. Fernandez Baig DO Work Phone: [facility] 09-12-2024 07:50-0500 Respiratory rate 20 /min Dr. Fernandez Baig DO Work Phone: [facility] 09-12-2024 07:50-0500 SaO2% (BldA) [Mass fraction] 90 % Dr. Fernandez Baig DO Work Phone: [facility] 09-12-2024 07:50-0500 Systolic blood pressure 123 mm[Hg] Dr. Fernandez Baig DO Work Phone: [facility] 09-11-2024 10:38-0500 Body mass index (BMI) [Ratio] 26.2 kg/m2 Dr. Fernandez Baig DO Work Phone: [facility] 09-11-2024 10:38-0500 Body weight 80.[address] Fernandez Baig DO Work Phone: [facility] 09-11-2024 10:38-0500 Diastolic blood pressure 76 mm[Hg] Dr. Fernandez Baig DO Work Phone: [facility] 09-11-2024 10:38-0500 Heart rate 76 /min Dr. Fernandez Baig DO Work Phone: [facility] 09-11-2024 10:38-0500 Inhaled oxygen flow rate 5 L/min Dr. Fernandez Baig DO Work Phone: [facility] 09-11-2024 10:38-0500 Respiratory rate 18 /min Dr. Fernandez Baig DO Work Phone: [facility] 09-11-2024 10:38-0500 SaO2% (BldA) [Mass fraction] 85 % Dr. Fernandez Baig DO Work Phone: [facility] 09-11-2024 10:38-0500 Systolic blood pressure 144 mm[Hg] Dr. Fernandez Baig DO Work Phone: [facility] 08-14-2024 08:50-0500 Body mass index (BMI) [Ratio] 26.1 kg/m2 Dr. Fernandez Baig DO Work Phone: [facility] 08-14-2024 08:50-0500 Body temperature 97.4 [degF] Dr. Fernandez Baig DO Work Phone: [facility] 08-14-2024 08:50-0500 Body weight 80.[address] Fernandez Baig DO Work Phone: [facility] 08-14-2024 08:50-0500 Diastolic blood pressure 71 mm[Hg] Dr. Fernandez Baig DO Work Phone: [facility] 08-14-2024 08:50-0500 Heart rate 82 /min Dr. Fernandez Baig DO Work Phone: [facility] 08-14-2024 08:50-0500 Inhaled oxygen flow rate 4 L/min Dr. Fernandez Baig DO Work Phone: [facility] 08-14-2024 08:50-0500 Respiratory rate 22 /min Dr. Fernandez Baig DO Work Phone: [facility] 08-14-2024 08:50-0500 SaO2% (BldA) [Mass fraction] 93 % Dr. Fernandez Baig DO Work Phone: [facility] 08-14-2024 08:50-0500 Systolic blood pressure 125 mm[Hg] Dr. Fernandez Baig DO Work Phone: [facility] 09-12-2023 11:20-0500 Body height 175.[address] Fernandez Baig Work Phone: [facility] 09-12-2023 11:20-0500 Body mass index (BMI) [Ratio] 26.6 kg/m2 Dr. Fernandez Baig Work Phone: [facility] 09-12-2023 11:20-0500 Body weight 81.[address] Fernandez Baig Work Phone: [facility] 09-12-2023 11:20-0500 Diastolic blood pressure 66 mm[Hg] Dr. Fernandez Baig Work Phone: [facility] 09-12-2023 11:20-0500 Heart rate 61 /min Dr. Fernandez Baig Work Phone: [facility] 09-12-2023 11:20-0500 Inhaled oxygen flow rate 4 L/min Dr. Fernandez Baig Work Phone: [facility] 09-12-2023 11:20-0500 Respiratory rate 20 /min Dr. Fernandez Baig Work Phone: [facility] 09-12-2023 11:20-0500 SaO2% (BldA) [Mass fraction] 90 % Dr. Fernandez Baig Work Phone: [facility] 09-12-2023 11:20-0500 Systolic blood pressure 123 mm[Hg] Dr. Fernandez Baig Work Phone: [facility] 07-29-2023 08:54-0500 Body mass index (BMI) [Ratio] 26.3 kg/m2 Dr. Fernandez Baig Work Phone: [facility] 07-29-2023 08:54-0500 Body temperature 98.2 [degF] Dr. Fernandez Baig Work Phone: [facility] 07-29-2023 08:54-0500 Body weight 80.[address] Fernandez Baig Work Phone: [facility] 07-29-2023 08:54-0500 Diastolic blood pressure 76 mm[Hg] Dr. Fernandez Baig Work Phone: [facility] 07-29-2023 08:54-0500 Heart rate 73 /min Dr. Fernandez Baig Work Phone: [facility] 07-29-2023 08:54-0500 Inhaled oxygen flow rate 5 L/min Dr. Fernandez Baig Work Phone: [facility] 07-29-2023 08:54-0500 Respiratory rate 18 /min Dr. Fernandez Baig Work Phone: [facility] 07-29-2023 08:54-0500 SaO2% (BldA) [Mass fraction] 93 % Dr. Fernandez Baig Work Phone: [facility] 07-29-2023 08:54-0500 Systolic blood pressure 115 mm[Hg] Dr. Fernandez Baig Work Phone: [facility] 12-14-2021 15:00-0400 Body mass index (BMI) [Ratio] 24.8 kg/m2 Dr. Fernandez Baig Work Phone: [facility] Work Phone: 12-14-2021 15:00-0400 Body weight 78.[address] Fernandez Baig Work Phone: [facility] Work Phone: 12-14-2021 15:00-0400 Diastolic blood pressure 81 mm[Hg] Dr. Fernandez Baig Work Phone: [facility] Work Phone: 12-14-2021 15:00-0400 Heart rate 65 /min Dr. Fernandez Baig Work Phone: [facility] Work Phone: 12-14-2021 15:00-0400 Respiratory rate 18 /min Dr. Fernandez Baig Work Phone: [facility] Work Phone: 12-14-2021 15:00-0400 SaO2% (BldA) [Mass fraction] 94 % Dr. Fernandez Baig Work Phone: [facility] Work Phone: 12-14-2021 15:00-0400 Systolic blood pressure 134 mm[Hg] Dr. Fernandez Baig Work Phone: [facility] Work Phone: 11-03-2021 10:16-0400 Body mass index (BMI) [Ratio] 24.7 kg/m2 Dr. Fernandez Baig Work Phone: [facility] Work Phone: 11-03-2021 10:16-0400 Body temperature 99.3 [degF] Dr. Fernandez Baig Work Phone: [facility] Work Phone: 11-03-2021 10:16-0400 Body weight 78.[address] Fernandez Baig Work Phone: [facility] Work Phone: 11-03-2021 10:16-0400 Diastolic blood pressure 65 mm[Hg] Dr. Fernandez Baig Work Phone: [facility] Work Phone: 11-03-2021 10:16-0400 Heart rate 61 /min Dr. Fernandez Baig Work Phone: [facility] Work Phone: 11-03-2021 10:16-0400 Respiratory rate 16 /min Dr. Fernandez Baig Work Phone: [facility] Work Phone: 11-03-2021 10:16-0400 SaO2% (BldA) [Mass fraction] 95 % Dr. Fernandez Baig Work Phone: [facility] Work Phone: 11-03-2021 10:16-0400 Systolic blood pressure 134 mm[Hg] Dr. Fernandez Baig Work Phone: [facility] Work Phone: Encounters Encounter Date Encounter Type Care Provider Facility Start: 11-19-2024 Non-patient / Non-visit Dr. Rohan Henao MD -[facility] Work Phone: Start: 11-18-2024 Non-patient / Non-visit Dr. Rohan Henao MD -[facility] Work Phone: Start: 11-17-2024 Non-patient / Non-visit Dr. Rohan Henao MD -[facility] Work Phone: Start: 11-16-2024 ambulatory Dario Bar Facility:[facility] Start: 11-16-2024 Non-patient / Non-visit Dr. Dario scott MD -[facility] Start: 11-16-2024 Non-patient / Non-visit Dr. Rohan Henao MD -[facility] Work Phone: Start: 11-15-2024 Non-patient / Non-visit Dr. Rohan Henao MD -[facility] Work Phone: Start: 11-15-2024 ambulatory Fernandez Baig Facility: [facility] Start: 11-15-2024 End: 11-19-2024 Evaluation and management of inpatient Dr. Rohan Henao MD -[facility] Work Phone: Start: 10-26-2024 End: 10-26-2024 Patient encounter procedure Anastasiya Fink AUD Work Phone: Audiology Comment on above: Sensorineural hearin g loss (SNHL) of both ears (Primary Dx); Cochlear implant in place Start: 10-26-2024 End: 10-26-2024 ambulatory ANASTASIYA FINK Facility:[facility] Start: 10-18-2024 End: 10-18-2024 Telephone encounter Mathew [facility] [place] Start: 09-12-2024 End: 09-12-2024 Patient encounter procedure Azucena YOUSSEF -[facility] Work Phone: Start: 09-12-2024 End: 09-12-2024 ambulatory Fernandez Baig Facility:[facility] Start: 09-11-2024 End: 09-11-2024 Patient encounter procedure Yung YOUSSEF -[facility] Work Phone: Start: 09-11-2024 End: 09-11-2024 ambulatory Fernandez Baig Facility:[facility] Start: 08-14-2024 End: 08-14-2024 Patient encounter procedure Azucena YOUSSEF -[facility] Work Phone: Start: 08-14-2024 End: 08-14-2024 ambulatory Azucena Bethea [employer] Facility:[facility] Start: 07-16-2024 End: 07-20-2024 ambulatory FERNANDEZ BAIG DO Facility:[facility] [place] Start: 06-20-2024 End: 06-21-2024 Telephone encounter [facility] [place] Comment on above: Patient Question Start: 06-19-2024 End: 06-19-2024 ambulatory ANASTASIYA FINK Facility:[facility] Start: 06-19-2024 End: 06-19-2024 Patient encounter procedure Anastasiya Fink AUD Work Phone: Audiology Comment on above: Sensorineural hearin g loss (SNHL) of both ears (Primary Dx); Cochlear implant in place Start: 06-15-2024 End: 06-19-2024 ambulatory FERNANDEZ BAIG DO Facility: Start: 04-16-2024 End: 04-16-2024 Telephone encounter Mathe[facility] Start: 04-03-2024 End: 04-03-2024 ambulatory ANASTASIYA FINK Facility:[facility] Start: 04-03-2024 End: 04-03-2024 Patient encounter procedure Anastasiyaben Fink AUD Work Phone: Audiology Comment on above: Bilateral hearing lo ss, unspecified hearing loss type (Primary Dx); Cochlear implant in place Start: 02-02-2024 End: 02-02-2024 ambulatory Azucena Bethea NP Facility:[facility] Start: 10-24-2023 End: 10-24-[address] Fernandez Baig Work Phone: [facility] Work Phone: Start: 10-24-2023 End: 10-24-[address] Fernandez Baig Work Phone: [facility] Work Phone: Start: 09-12-2023 End: 09-12-[address] Fernandez Baig Work Phone: [facility] Work Phone: Start: 07-29-2023 End: 07-29-[address] Fernandez Baig Work Phone: [facility] Work Phone: Start: 07-07-2023 End: 07-12-2023 ambulatory FERNANDEZ BAIG DO Facility:A Start: 01-06-2023 End: 01-10-2023 ambulatory FERNANDEZ BAIG DO Facility:[facility] Start: 12-14-2021 End: 12-14-[address] Fernandez Baig Work Phone: [facility] Start: 12-14-2021 End: 12-14-[address] Fernandez Baig Work Phone: [facility] Start: 11-03-2021 End: 11-03-[address] Fern[facility] Start: 07-09-2021 End: 07-09-[address] CORAZON EARL MD [facility] Procedures Date Procedure Procedure Detail [...] Phone: Start: 11-15-2024 D-dimer assay, quantitative Dr. Fernandez altamirano DO Work Phone: Comment on above: [...] AM EDT Office Visit Audiology [address] [address] Anastasiya Fink, AUD [address] [place] [address] 1 yr follow up Audiology Comment on above: 1 yr follow up Start: 11-19-2024 Patient discharge [facility] Start: 11-19-2024 Care planning and pr oblem solving actions [facility] Start: 11-16-2024 Palliative care [facility] Start: 11-15-2024 [facility] Start: 11-15-2024 End: 11-15-2024 Following clinical pathway protocol [facility] Start: 11-15-2024 Ambulation without limitation [facility] Start: 11-15-2024 Assessment of risk o f venous thromboembolism [facility] Start: 11-15-2024 Bacteria identified in Sputum by Culture [facility] Start: 11-15-2024 Consultation [facility] Start: 11-15-2024 Elevation of head of bed [facility] Start: 11-15-2024 Incentive spirometry [facility] Start: 11-15-2024 Insertion of cathete r into peripheral vein [facility] Start: 11-15-2024 Measuring intake and output [facility] Start: 11-15-2024 Oxygen therapy [facility] Start: 11-15-2024 Patient education [facility] Start: 11-15-2024 Physiotherapy of chest [facility] Start: 11-15-2024 Providing care accor ding to standard [facility] Start: 11-15-2024 Referral to occupati onal therapist [facility] Start: 11-15-2024 Referral to service [facility] Start: 11-15-2024 Taking nasal swab [facility] Start: 11-15-2024 Legionella pneumophi la Ag [Presence] in Urine [facility] Start: 11-15-2024 Respiratory pathogen s DNA and RNA panel - Respiratory specimen by MELY with probe detection [facility] Start: 11-15-2024 Streptococcus pneumo niae antigen assay [facility] Start: 11-15-2024 End: 11-15-2024 [facility] Start: 11-15-2024 Verification routine [facility] Start: 11-15-2024 Continuous pulse oximetry [facility] Start: 11-15-2024 Dual pressure sponta neous ventilation support [facility] Start: 11-15-2024 Gas panel - Arterial blood [facility] Start: 11-15-2024 Admission procedure [facility] Start: 11-15-2024 End: 11-15-2024 [facility] Start: 10-26-2024 End: 10-26-2024 Patient encounter procedure 10/26/2024 2:30 PM EDT Office Visit Audiology [address] [place] [address] Anastasiya Fink, AUD [address] [place] [address] pair THAYER and CI Audiology Comment on above: pair THAYER and CI Start: 10-25-2024 Covid-19 Vaccine () Covid-19 Vaccine () [facility] Start: 07-11-2024 Advance Directive Discussion Advance Directive Discussion [facility] Start: 06-19-2024 End: 06-19-2024 Patient encounter procedure 06/19/2024 10:30 AM EST Office Visit Audiology [address] [address] Anastasiya Fink, AUD [address] [place] [address] cochlear implant Audiology Comment on above: cochlear implant Start: 03-11-2024 Covid-19 Vaccine ( season) Covid-19 Vaccine ( season) [facility] Start: 03-11-2024 Influenza vaccination Influenz a Vaccine (#1) [facility] Start: 07-11-2023 Advance Directive Discussion Advance Directive Discussion [facility] Start: 2019 RSV Vaccine (1 - 1-d ose 75+ series) RSV Vaccine (1 - 1-dose 75+ series) [facility] Start: 1994 Shingrix Vaccine (1 of 2) Churchill grix Vaccine (1 of 2) [facility] Start: 1989 Diabetes Screening Diabetes Screenin g [facility] Start: 1963 Urine microalbumin profile DTa P,Tdap,Td Vaccine (1 - Tdap) [facility] Start: 1962 Anxiety Screening Anxiety Screening [facility] Start: 1962 Depression Screening Depression Scre ening [facility] Anion gap in Serum o r Plasma [facility] BUN/Creatinine ratio [facility] Calcium [Mass/volume ] in Serum or Plasma [facility] Carbon dioxide, tota l [Moles/volume] in Central venous blood [facility] Creatinine [Mass/vol ume] in Serum or Plasma [facility] Erythrocyte mean corpuscular volume determination [facility] Glucose [Mass/volume ] in Serum or Plasma [facility] Hematocrit [Volume Fraction] of Blood [facility] Hemoglobin [Mass/vol ume] in Blood [facility] Leukocytes [#/volume ] in Blood [facility] Magnesium measurement [facility] Mean corpuscular hemoglobin concentration determination [facility] Mean corpuscular hemoglobin determination [facility] Measurement of renal function [facility] Neutrophil count [facility] Neutrophil percent differential count [facility] Patient referral [facility] Work Phone: Platelets [#/volume] in Blood [facility] Potassium measurement [facility] Red blood cell count [facility] Red cell distributio n width determination [facility] Serum chloride measurement [facility] Sodium measurement [facility] Troponin T.cardiac [Mass/volume] in Serum or Plasma by High sensitivity method [facility] Urea nitrogen [Mass/volume] in Serum or Plasma [facility] Immunizations Immunization Date Immunization Notes Care Provider Fa lashell 04-13-2023 influenza virus vacc ine, unspecified formulation Anastasiya HOLCOMB Work Phone: [facility] 05-04-2022 influenza, injectabl e, quadrivalent, preservative free Dr. Fernandez Baig Work Phone: [facility] 06-10-2021 COVID-19, mRNA, LNP- S, PF, 100 mcg/ 0.5 mL dose; Translations: [Moderna COVID-19 Vaccine] DR CORAZON EARL MD [facility] 09-10-2020 COVID-19, mRNA, LNP- S, PF, 100 mcg/ 0.5 mL dose; Translations: [Moderna COVID-19 Vaccine] DR CORAZON EARL MD [facility] 08-13-2020 COVID-19, mRNA, LNP- S, PF, 100 mcg/ 0.5 mL dose; Translations: [Moderna COVID-19 Vaccine] DR CORAZON EARL MD [facility] 04-23-2020 influenza, injectabl e, quadrivalent, preservative free Dr. Fernandez Baig Work Phone: [facility] 04-23-2020 influenza, seasonal, injectable Dr. Fernandez Baig Work Phone: [facility] Work Phone: 04-23-2020 Fluad Quad (65yr up)(PF) 60 mcg (15 mcg x 4)/0.5mL IM syringe (flu vac Dr. Fernandez Baig Work Phone: [facility] Work Phone: 04-24-2019 pneumococcal polysaccharide vaccine, [address] Fernandez Baig Work Phone: [facility] 04-24-2019 pneumococcal vaccine , unspecified formulation Dr. Fernandez Baig Work Phone: [facility] Work Phone: 04-09-2019 Seasonal trivalent influenza vaccine, adjuvanted, preservative free; Translations: [Fluad ] DR CORAZON EARL MD [facility] 03-11-[address] Fernandez Baig Work Phone: [facility] 04-26-[address] Fernandez Baig Work Phone: [facility] 04-26-2018 Fluad 2017- 65yr up(PF)45 mcg(15 mcgx3)/0.5 mL intramuscular syringe (flu vac Dr. Fernandez Baig Work Phone: [facility] Work Phone: Payers Date Payer Category Payer Private Health Insurance [facility] [id number] 2024 Self-pay [id number] 2023 Unknown [id number] 2009 Medicare [id number] 2009 Medicare [id number] 1944 Unknown [id number] 1944 Unknown [id number] .627 1944 Unknown [id number] .627 1944 Unknown [id number] [id number] .627 Unknown [id number] [id number] .462 Unknown [id number] [id number] .462 Unknown [id number] [id number] .462 Unknown [id number] [id number] .462 Unknown [id number] [id number] .462 Unknown [id number] [id number] .462 Unknown [id number] [id number] .462 Unknown [id number] [id number] .462 Unknown [id number] [id number] .462 Unknown [id number] [id number] .462 Unknown [id number] [id number] .462 Unknown [id number] .462 Social History Date Type Detail Facility Start: 03-02-2019 End: 11-17-2024 Ex-smoker (finding) [facility]igned [facility] Start: 12-14-2021 End: 09-12-2023 Tobacco smoking status NHIS Unknown if ever smoked [facility] Start: 12-24-2019 Spouse/ Signif icant Other [facility] Start: 12-24-2019 [facility] [facility] Start: 1945 Sex Assigned At Male W [facility] Start: 1945 Sex assigned at Not on file [facility] Gender identity Not on file [facility] Goals Date Patient Goal Desired Activity /State Functional Status Date Assessment Result Facility 11-19-2024 Functional status Ambulates;Chair [facility] Work Phone: Mental Status Date Assessment Result Facility 11-19-2024 Cognitive function Voice/Name [facility] Work Phone: Clinical Notes 04-03-2024 to 11-19-2024 Note Date & Type Note Facility 11-19-2024 Discharge summary [facility] 11-19-2024 Discharge summary [facility] 11-19-2024 Discharge summary Note Date/Time November 19, 2024 12:29pm [facility] Medical Records Department [address] [place] [address] Instructions for Home/Discharge Instructions 11/19/24 1019 MR#: [id number] Acct: [id number] Name: NANETTE MONROY Rep #:[id number] : 1945 79 From: Rohan Cortez PCP: [...] Shearer; Bhavana Tellez; Jenny Tijerina; Naya Livingston SCOURING MACHINE TENDER; Adrianne Mcqueen Discharge Orders/Prescriptions Prescriptions: New benzonatate [...] (Reason: Constipation) Qty: 0 0RF Rx Instructions: Toul-kdk-xyiylrs prednisone 10 mg tablet 10 mg PO [...] MD; Dr. Jakob Gallegos MD; Dr. Slade aSini DO; Dr. Yusuf Stearns MD; Dr. Doug Lai DO; Dr. Alexi Gurrola MD; Dr. Klaus Bardales MD; Dr. Julius MD; Mathew Low NP; CARMELITA Vasquez ~ Signed [facility] Work Phone: 1(340) 927-394105-12-2025 Discharge summary Author [facility] Note Date/Time November 19, 2024 12:31 pm [facility] Medical Records Department [address] [place] [address] Discharge Summary 11/19/24 1019 MR#: [id number] Acct: [id number] Name: NANETTE MONROY Rep #:[id number] : 1945 79 From: Rohan Cortez PCP: Dr. Fernandez Baig DO Status:ADM IN Location: [facility] [id number]- 1 Providers Date of Admission: 11/15/24 Date of Discharge: 11/19/24 Primary Care Physician: Dr. Fernandez Baig DO Consultations 11/15/24 14:59 Consult: Development Director / Pulmonary Medicine Routine Consulting Provider: Pulmonary [facility] Reason for Consult: RESP FAILURE, NEED [...] lobes, started on IV Zosyn and Zithromax. Development Director consult. Pneumonia workup ordered. ABG 7.4 on [...] antibiogram, tapering dose of prednisone, Mucinex DM. Biodiesel Production Technician called to inform. Follow- up with PCP [...] mg tablet,delayed release 81 mg PO DAILY@1999 [facility] 12/24/19 nitroglycerin 0.4 mg sublingual tablet [...] (Auto) 72.5 H, Lymph % (Auto) 18.5L, Scott % (Auto) 8.1, Eos % (Auto) 0.2, [...] Shearer; Bhavana Tellez; Jenny Tijerina; Naya Livingston SCOURING MACHINE TENDER; Adrianne Mcqueen Discharge Orders/Prescriptions Prescriptions: New benzonatate [...] (Reason: Constipation) Qty: 0 0RF Rx Instructions: Tgjl-qge-yonphet prednisone 10 mg tablet 10 mg PO [...] in Home Charges/Coding Visit Charges Inpatient E&M: 55654 Disch Hosp >30min 11/19/24 1231 <Electronically signed by Rohan Henao MD> Cosigner Signature (if applicable): CC: Dr. Rohan Henao MD; Dr. Fernandez Baig DO~ Signed [facility] Work Phone: 1(377) 421-226405-12-2025 [facility] Medical Records Department [address] [place] [address] Discharge Summary 11/19/24 1019 MR#: [id number] Acct: [id number] Name: NANETTE MONROY Rep #: [id number] : 1945 79 From: Rohan Henao MD PCP: Dr. Fernandez Baig DO Status:ADM IN Location: [place] [address] Providers Date of Admission: 11/15/24 Date of Discharge: 11/19/24 Primary Care Physician: Dr. Fernandez Baig DO Consultations 11/15/24 14:59 Consult: Development Director / Pulmonary Medicine Routine Consulting Provider: [facility] Reason for Consult: RESP FAILURE, NEED AIRVO, [...] lobes, started on IV Zosyn and Zithromax. Development Director consult. Pneumonia workup ordered. ABG 7.4 on [...] antibiogram, tapering dose of prednisone, Mucinex DM. Biodiesel Production Technician called to inform. Follow-up with PCP and [...] central line/PICC line or (more content not included)...[facility]05-11-2025 Progress note Author Rohan Henao [facility] Note Date/Time November 18, 2024 11:50 am [facility] Medical Records Department [address] [place] [address] Progress Note - Hospitalist 11/18/24 1140 MR#: [id number] Acct: [id number] Name: NANETTE MONROY Rep #:[id number] : 1945 79 From: Rohan Cortez PCP: Dr. Fernandez Baig, DO Status:ADM IN Location: [place] [address] Reason for Visit Reason for Visit: Diagnoses [...] lobes, started on IV Zosyn and Zithromax. Development Director consult. Pneumonia workup ordered. ABG 7.4 3/86 [...] vasopressor if needed. Total time spent in upqq-rg-ghyy encounter in discussion of advanced directive 17 [...] Location: [facility] Charges/Coding Visit Charges Inpatient E&M: 14204 Subs Hosp L2 11/18/24 1150 <Electronically signed by Rohan Henao MD> Cosigner Signature (if applicable): CC: ~ Signed [facility] Work Phone: 1(135) 899-524705-11-2025 Progress note [facility] Medical Records Department [address] [place] [address] Progress Note - Hospitalist 11/18/24 1140 MR#: [id number] Acct: [id number] Name: NANETTE MONROY Rep #:[id number] : 1945 79 From: Rohan Cortez PCP: Dr. Fernandez Baig, Status:ADM IN Location: [facility] [id number]- 1 Reason for Visit Reason for Visit: [...] lobes, started on IV Zosyn and Zithromax. Development Director consult. Pneumonia workup ordered. ABG 7.4 on [...] vasopressor if needed. Total time spent in qhfk-sa-gwnu encounter in discussion of advanced directive 17 [...] Location: [facility] Charges/Coding Visit Charges Inpatient E&M: 11777 Subs Hosp L2 11/18/24 1150 Cosigner Signature (if applicable): CC: ~ Signed [facility]05-11-2025 Progress note Author Carlos Sanchez [facility] Note Date/Time November 18, 2024 9:49a m [facility] Medical Records Department [address] [place] [address] Progress Note - Development Director 11/18/24 0944 MR#: [id number] Acct: [id number] Name: NANETTE MONROY Rep #:[id number] : 1945 79 From: Carlos Sanchez MD PCP: Dr. Fernandez Baig, DO Status:ADM IN Location: [facility] [id number]- 1 Objective Data Objective Data Vital Signs: [...] 81 Mg Tablet PO 81 mg DAILY@2000 [facility] Administration Atorvastatin Calcium 40 mg 11/16/24 10:00 [...] Mg/0.4 Ml Syringe SC 40 mg Q24 TALBI Administration Guaifenesin 2 tablet 11/15/24 14:59 11/18/24 08:24 Guaifenesin/D-Methorphan Tab.Sr.12h PO 2 tablet BID [facility] Administration Piperacillin Sod/Tazobactam 50 mls @ 12.5 mls/hr 11/15/24 14:55 11/18/24 09:14 Sod 3.375 gm/ Sodium Chloride IV Infused Q8 TALIB Infusion Sodium Chloride 250 mls @ 15 mls/hr 11/15/24 15:20 11/17/24 06:51 IV Infused .Y25Q07O PRN Infusion Saline Flush Sodium Chloride 250 mls @ 15 mls/hr 11/15/24 15:20 IV .T16H55B PRN Additional IVPB Infusion Isosorbide Mononitrate 30 mg 11/16/24 12:00 11/17/24 13:01 Isosorbide Mononitrate 30 Mg Tablet PO 30 mg DAILY@1200 [facility] Administration Protocol Losartan Potassium 25 mg 11/15/24 [...] spray 11/17/24 23:21 Sodium Chloride 0.65% 1 [place] Weatherford.Btl NASAL TID PRN PRN NASAL DRYNESS Lab [...] Cosigner Signature (if applicable): CC: ~ Signed [facility] Work Phone: 1(768) 300-500505-11-2025 Progress note [facility] Medical Records Department [address] [place] [address] Progress Note - Development Director 11/18/24 0944 MR#: [id number] Acct: [id number] Name: NANETTE MONROY Rep #:[id number] : 1945 79 From: Carlos Sanchez MD PCP: Dr. Fernandez Baig, DO Status:ADM IN Location: [place] [address] Objective Data Objective Data Vital Signs: Vital [...] mls/hr 11/15/24 15:20 11/17/24 06:51 IV Infused .[id number] PRN Infusion Saline Flush Sodium Chloride 250 mls @ 15 mls/hr 11/15/24 15:20 IV .K17K77P PRN Additional IVPB Infusion Isosorbide Mononitrate 30 mg 11/16/24 12:00 11/17/24 13:01 Isosorbide Mononitrate 30 Mg Tablet PO 30 mg DAILY@1200 [facility] Administration Protocol Losartan Potassium 25 mg 11/15/24 [...] spray 11/17/24 23:21 Sodium Chloride 0.65% 1 [place] Weatherford.Btl NASAL TID PRN PRN NASAL DRYNESS Lab [...] no rashes Subjective Subjective doing well 11/18/24 0941 Cosigner Signature (if applicable): CC: ~ Signed [facility]05-10-2025 Progress note Author Rohan Henao [facility] Note Date/Time November 17, 2024 12:43 pm [facility] Medical Records Department [address] [place] [address] Progress Note - Hospitalist 11/17/24 0934 MR#: [id number] Acct: [id number] Name: NANETTE MONROY Faith Rep #:[id number] : 1945 79 From: Rohan Cortez PCP: Dr. Fernandez Baig, DO Status:ADM IN Location: [place] [id number]- [id number] Reason for Visit Reason for Visit: [...] lobes, started on IV Zosyn and Zithromax. Development Director consult. Pneumonia workup ordered. ABG 7.4 on [...] vasopressor if needed. Total time spent in rwkq-xl-hnsl encounter in discussion of advanced directive 17 [...] Location: [facility] Charges/Coding Visit Charges Inpatient E&M: 64447 Subs Hosp L2 11/17/24 1243 <Electronically signed by Rohan Henao MD> Cosigner Signature (if applicable): CC: ~ Signed [facility] Work Phone: 1(136) 911-514305-10-2025 Progress note Author Carlos Sanchez [facility] Note Date/Time November 17, 2024 10:53 am [facility] Medical Records Department [address] [place] [address] Progress Note - Development Director 11/17/24 1048 MR#: [id number] Acct: [id number] Name: NANETTE MONROY Rep #:[id number] : 1945 79 From: Carlos Sanchez MD PCP: Dr. Fernandez Baig, DO Status:ADM IN Location: [facility] [id number]- 1 Objective Data Objective Data Vital Signs: [...] 81 Mg Tablet PO 81 mg DAILY@2000 [facility] Administration Atorvastatin Calcium 40 mg 11/16/24 10:00 11/17/24 09:29 Atorvastatin Calcium 40 Mg Tablet PO 40 mg DAILY [facility] Administration Benzonatate 200 mg 11/15/24 22:00 11/17/24 05:40 Benzonatate 100 Mg Capsule PO Not Given TID [facility] Doxycycline Monohydrate 100 mg 11/16/24 22:00 11/17/24 09:29 Doxycycline 100 Mg Capsule PO 100 mg BID [facility] Administration Enoxaparin Sodium 40 mg 11/15/24 14:59 11/17/24 09:29 Enoxaparin 40 Mg/0.4 Ml Syringe SC 40 mg Q24 TALIB Administration Guaifenesin 2 tablet 11/15/24 14:59 11/17/24 09:30 Guaifenesin/D-Methorphan Tab.Sr.12h PO 2 tablet BID [facility] Administration Piperacillin Sod/Tazobactam 50 mls @ 12.5 mls/hr 11/15/24 14:55 11/17/24 05:39 Sod 3.375 gm/ Sodium Chloride IV 12.5 mls/hr Q8 [facility]ALIB Administration Sodium Chloride 250 mls @ 15 mls/hr 11/15/24 15:20 11/17/24 06:51 IV Infused .[id number] PRN Infusion Saline Flush Sodium Chloride 250 mls @ 15 mls/hr 11/15/24 15:20 IV .Y55I07K PRN Additional IVPB Infusion Isosorbide Mononitrate 30 mg 11/16/24 12:00 11/16/24 12:18 Isosorbide Mononitrate 30 Mg Tablet PO 30 mg DAILY@1200 [facility] Administration Protocol Losartan Potassium 25 mg 11/15/24 22:00 11/17/24 09:29 Losartan Potassium 25 Mg Tablet PO 25 mg BID [facility] Administration Protocol Metoprolol Succinate 12.5 mg 11/16/24 10:00 11/17/24 09:30 Metoprolol(Xl)Succ 25 Mg Tablet PO 12.5 mg DAILY [facility] Administration Protocol Nitroglycerin 0.4 mg 11/15/24 15:11 Nitroglycerin (Inpatient Use) 0.4 Mg Tab.Subl SL Q5M PRN CARDIAC/CHEST PAIN Prednisone 40 mg 11/17/24 12:00 Prednisone 20 Mg Tablet PO BREAKFAST [facility] Psyllium Hydrophilic Mucilloid 1 packet 11/15/24 14:59 [...] Cosigner Signature (if applicable): CC: ~ Signed [facility] Work Phone: 1(868) 328-215405-10-2025 Progress note [facility] Medical Records Department [address] [place] [address] Progress Note - Hospitalist 11/17/24933 MR#: [id number] Acct: [id number] Name: NANETTE MONROY Rep #:[id number] : 1945 79 From: Rohan Cortez PCP: Dr. Fernandez Baig, DO Status:ADM IN Location: [place] [address]- 1 Reason for Visit Reason for Visit: [...] lobes, started on IV Zosyn and Zithromax. Development Director consult. Pneumonia workup ordered. ABG 7.4 on [...] vasopressor if needed. Total time spent in vure-wj-relw encounter in discussion of advanced directive 17 [...] Location: [facility] Charges/Coding Visit Charges Inpatient E&M: 42068 Subs Hosp L2 11/17/24 1243 Cosigner Signature (if applicable): CC: ~ Signed [facility]05-10-2025 Progress note [facility] Medical Records Department [address] [place] [address] Progress Note - Development Director 11/17/24 1048 MR#: [id number] Acct: [id number] Name: NANETTE MONROY Rep #:[id number] : 1945 79 From: Carlos Sanchez MD PCP: Dr. Fernandez Baig, DO Status:ADM IN Location: [place] [address] Objective Data Objective Data Vital Signs: Vital [...] mls/hr 11/15/24 15:20 11/17/24 06:51 IV Infused .U73S02H PRN Infusion Saline Flush Sodium Chloride 250 mls @ 15 mls/hr 11/15/24 15:20 IV .V20W60K PRN Additional IVPB Infusion Isosorbide Mononitrate 30 [...] 12:00 Prednisone 20 Mg Tablet PO BREAKFAST [facility] Psyllium Hydrophilic Mucilloid 1 packet 11/15/24 14:59 [...] Cosigner Signature (if applicable): CC: ~ Signed [facility]05-09-2025 Progress note Author Rohan Henao [facility] Note Date/Time November 16, 2024 3:52pm [facility] Medical Records Department [address] [place] [address] Progress Note - Hospitalist 11/16/24 0859 MR#: [id number] Acct: [id number] Name: NANETTE MONROY Rep #:[id number] : 1945 79 From: Rohan Cortez PCP: Dr. Fernandez Baig, DO Status:ADM IN Location: [place] [id number]- 1 Reason for Visit Reason for Visit: [...] 86.4 H, Lymph % (Auto) 6.7 L, Scott % (Auto) 6.1, Eos % (Auto) 0.2, [...] 94.1 H, Lymph % (Auto) 4.2 L, Scott % (Auto) 0.9, Eos % (Auto) 0.0, [...] lobes, started on IV Zosyn and Zithromax. Development Director consult. Pneumonia workup ordered. ABG 7.4 / [...] vasopressor if needed. Total time spent in udaw-oy-nicw encounter in discussion of advanced directive 17 [...] O2 Saturation 97, O2 % 5.0, ABG oBE337.9, ABG pO2 86, Maria R Test Positive, [...] 94.1 H, Lymph % (Auto) 4.2 L, Scott % (Auto) 0.9, Eos % (Auto) 0.0, [...] is 35 minutes. Visit Charges Inpatient E&M: 54786 Subs Hosp L3 11/16/24 1346 <Electronically signed by Rohan Henao MD> Cosigner Signature (if applicable): CC: ~ Signed ADDENDUM by Dr. Rohan Henao MD on 11/16/24 at 1552 Addendum Patient and his girlfriend accepted consult for palliative/hospice care. Hospice consult placed. CODE STATUS changed to DNR CC hospice care. 11/16/24 1552<Electronically signed by Rohan Henao MD> Cosigner Signature (if applicable): cc: ~* Signed [facility] Work Phone: 1(165) 206-641705-09-2025 Progress note [facility] Medical Records Department [address] [place] [address] Progress Note - Hospitalist 11/16/24 0859 MR#: [id number] Acct: [id number] Name: NANETTE MONROY Rep #:[id number] : 1945 79 From: Rohan Cortez PCP: Dr. Fernandez Baig, DO Status:ADM IN Location: [place] [address]- 1 Reason for Visit Reason for Visit: [...] 86.4 H, Lymph % (Auto) 6.7 L, Scott % (Auto) 6.1, Eos % (Auto) 0.2, [...] 94.1 H, Lymph % (Auto) 4.2 L, Scott % (Auto) 0.9, Eos % (Auto) 0.0, [...] primarily in the lower lobes. [facility] Narrative Seen and examined. [...] lobes, started on IV Zosyn and Zithromax. Development Director consult. Pneumonia workup ordered. ABG 7.4 on [...] vasopressor if needed. Total time spent in fwpa-jz-ahzo encounter in discussion of advanced directive 17 [...] O2 Saturation 97, O2 % 5.0, ABG bRZ970.9, ABG pO2 86, Maria R Test Positive, M1Fwhqehvr Device Cannula, Vent Mode Notentered 11/15/24 14:30: Troponin T Hi Sens 4Hr 20 11/16/24 04:27: WBC 15.3 H, RBC 4.38 L, Hgb 13.8, Hct 42.5, MCV 97.0 H, MCH 31.5, MCHC 32.5, RDW Std Deviation 48.3 H, RDW Coeff of Crystal 13.4, Plt Count 242,MPV 9.2, Immature Gran % (Auto) 0.700, Neut% (Auto) 94.1 H, Lymph % (Auto) 4.2 L, Scott % (Auto) 0.9, Eos % (Auto) 0.0, [...] is 35 minutes. Visit Charges Inpatient E&M: 94801 Subs Hosp L3 11/16/24 1346 Cosigner Signature (if applicable): CC: ~ Signed ADDENDUM by Dr. Rohan Henao MD on 11/16/24 at 1552 Addendum Patient and his girlfriend accepted consult for palliative/hospice care. Hospice consult placed. CODE STATUS changed to DNR CC hospice care. 11/16/24 1552 Cosigner Signature (if applicable): cc: ~* Signed [facility]05-09-2025 Consult note Author Harsh Manzo [facility] Note Date/Time November 16, 2024 11:26a m [facility] Medical Records Department [address] [place] [address] Consultation - Development Director 11/16/24 0849 MR#: [id number] Acct: [id number] Name: NANETTE MONROY Rep #:[id number] : 1945 79 From: Harsh Manzo DO PCP: Dr. Fernandez Baig, Status:ADM [facility] Assessment & Plan Assessment/Plan (1) COPD [...] noted above. This note was generated with [address] dictation software. It may contain incorrectwords, spelling, [...] admitted to the hospital for further management. 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, implants and grafts, initial encounter Nocturnal hypoxia Tobacco dependence in remission Chronic hypoxemic respiratory failure COPD (chronic obstructive pulmonary disease) Home Medications ?Medication ?Instructions ?Recorded ?Last Taken ?Type aspirin 81 mg tablet,delayed 81 mg PO DAILY@1999 [facility] 12/24/19 11/14/24 History release nitroglycerin 0.4 [...] 86.4 H, Lymph % (Auto) 6.7 L, Scott % (Auto) 6.1, Eos % (Auto) 0.2, [...] 94.1 H, Lymph % (Auto) 4.2 L, Scott % (Auto) 0.9, Eos % (Auto) 0.0, [...] Location: [facility] Charges/Coding Visit Charges Inpatient E&M: 07000 Init Hosp L3 11/16/24 1126 <Electronically signed by Harsh Manzo DO> Cosigner Signature (if applicable): CC: Dr. Fernandez Baig DO~ Signed [facility] Work Phone: 1(786) 472-487305-09-2025 Consult note [facility] Medical Records Department [address] [place] [address] Consultation - Development Director 11/16/24 0849 MR#: [id number] Acct: [id number] Name: NANETTE MONROY Rep #:[id number] : 1945 79 From: Harsh Manzo DO PCP: Dr. Fernandez Baig DO Status:ADM IN Location: [place] [address] Assessment & Plan Assessment/Plan (1) COPD exacerbation: [...] noted above. This note was generated with [address] dictation software. It may contain incorrectwords, spelling, [...] admitted to the hospital for further management. 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, implants and grafts, initial encounter Nocturnal hypoxia Tobacco dependence in remission Chronic hypoxemic respiratory failure COPD (chronic obstructive pulmonary disease) Home Medications ?Medication ?Instructions ?Recorded ?Last Taken ?Type aspirin 81 mg tablet,delayed 81 mg PO DAILY@1999 [facility] 12/24/19 11/14/24 History release nitroglycerin 0.4 mg [...] 86.4 H, Lymph % (Auto) 6.7 L, Scott % (Auto) 6.1, Eos % (Auto) 0.2, [...] 94.1 H, Lymph % (Auto) 4.2 L, Scott % (Auto) 0.9, Eos % (Auto) 0.0, [...] Location: [facility] Charges/Coding Visit Charges Inpatient E&M: 87540 Init Hosp L3 11/16/24 1126 Cosigner Signature (if applicable): CC: Dr. Fernandez Baig, DO~ Signed [facility]05-08-2025 History and physical note Author Rohan Henao [facility] Note Date/Time November 15, 2024 2:58pm [facility] Medical Records Department [address] [place] [address] H&P Exam - Hospitalist 11/15/24 1345 MR#: [id number] Acct: [id number] Name: NANETTE MONROY Rep #:[id number] : 1945 79 From: Rohan Cortez PCP: Dr. Fernandez Baig, Status:ADM IN Location: [facility] PG264-3 HPI - General General Date of Admission: [...] was done and is discussed assessment plan. 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 Development Director consult. Pneumonia workup ordered. ABG 7.4 on [...] vasopressor if needed. Total time spent in rzhx-fi-eiqc encounter in discussion of advanced directive 17 minutes. Laboratory Results 11/15/24 10:13: WBC 20.1 H, RBC 4.43 L, Hgb 14.0, Hct 42.3, MCV 95.5 H, MCH 31.6, MCHC 33.1, RDW Std Deviation 47.7 H, RDW Coeff of Crystal 13.5, Plt Count 221,MPV 9.4, Immature Gran % (Auto) 0.400, Neut % (Auto) 86.4 H, Lymph % (Auto) 6.7 L, Scott % (Auto) 6.1, Eos % (Auto) 0.2, [...] O2 Saturation 97, O2 % 5.0, ABG iDW559.9, ABG pO2 86, Maria R Test Positive, [...] Location: [facility] Charges/Coding Visit Charges Inpatient E&M: 56608 Init Hosp L3 Procedures Hospitalists Procedures: 03573 Advncd Care Plan 30 Min 11/15/24 8338 <Electronically signed by Rohan Henao MD> Cosigner Signature (if applicable): CC: Dr. Rohan Henao MD; Dr. Fernandez Baig DO~ Signed [facility] Work Phone: 1(147) 173-639705-08-2025 Discharge summary Author Beau Julissa [facility] Note Date/Time November 15, 2024 2:08pm [facility] Medical Records Department [address] [place] [address] Emergency Department Summary 11/15/24 MR#: [id number] Acct: [id number] Name: NANETTE MONROY Rep #:[id number] : 1945 79 From: Beau Lane PCP: [...] Hyperlipidemia Ischemic cardiomyopathy Atherosclerotic heart disease of [place] coronary artery without angina pectoris Displacement of [...] clinician: Hospitalist This note was generated with [address] dictation software. It may contain incorrectwords, spelling, [...] 86.4 H Lymph % (Auto) 6.7 L Scott % (Auto) 6.1 Eos % (Auto) 0.2 [...] primarily in the lower lobes. Reading Location: [facility] Discharge Plan Triage Chief Complaint: Shortness [...] DO [Primary Care Provider] - Print Language: Cuban What to do if you have Problems For any increased pain, shortness of breath, bleeding, nausea or vomiting, chestpain, or any unexpected problems, contact your Primary Care Provider. Call [facility] ([phone]) or report to the closest Emergency Room. Call 911 if necessary. 11/15/24 1403 <Electronically signed by Beau Lane> Cosigner Signature (if applicable): CC: Dr. Fernandez Baig DO ~ Signed ADDENDUM by Dr. Beau Costa DO on 11/15/24 at 1408 ABG requested by hospitalist, pH 7.43, MEZ467, PaO2 85 11/15/24 1408<Electronically signed by Beau Lane> Cosigner Signature (if applicable): cc: Dr. Fernandez Baig DO ~* Signed [facility] Work Phone: [phone] 197-137705-08-2025 History and physical note [facility] Medical Records Department [address] [place] [address] H&P Exam - Hospitalist 11/15/24 1345 MR#: [id number] Acct: [id number] Name: NANETTE MONROY Rep #:[id number] : 1945 79 From: Rohan Cortez PCP: Dr. Fernandez Baig DO Status:ADM IN Location: [facility] IN524-5 [facility] - General General Date of Admission: [...] was done and is discussed assessment plan. [facility] Medical History Old myocardial infarction Claudication, intermittent Premature ventricular contraction Hyperlipidemia Ischemic cardiomyopathy Atherosclerotic heart disease of pilot station coronary artery without angina pectoris Displacement of [...] 86.4 H, Lymph % (Auto) 6.7 L, Scott % (Auto) 6.1, Eos % (Auto) 0.2, [...] lobes, started on IV Zosyn and Zithromax. Development Director consult. Pneumonia workup ordered. ABG 7.4 on [...] vasopressor if needed. Total time spent in [id number]-hl-[id number] encounter in discussion of advanced directive 17 minutes. Laboratory Results 11/15/24 10:13: WBC 20.1 H, RBC 4.43 L, Hgb 14.0, Hct 42.3, MCV 95.5 H, MCH 31.6, MCHC 33.1, RDW Std Deviation 47.7 H, RDW Coeff of Crystal 13.5, Plt Count 221,MPV 9.4, Immature Gran % (Auto) 0.400, Neut% (Auto) 86.4 H, Lymph % (Auto) 6.7 L, Scott % (Auto) 6.1, Eos % (Auto) 0.2, [...] O2 Saturation 97, O2 % 5.0, ABG nTQ777.9, ABG pO2 86, Maria R Test Positive, I8Yosdcrpu Device Cannula, Vent Mode Notentered 11/15/24 14:30: [...] Location: [facility] Charges/Coding Visit Charges Inpatient E&M: 99465 Init Hosp L3 Procedures Hospitalists Procedures: 30033 Advncd Care Plan 30 Min 11/15/24 1458 Cosigner Signature (if applicable): CC: Dr. Rohan Henao MD; Dr. Fernandez Baig, DO~ Signed [facility]05-08-2025 Discharge summary [facility] Medical Records Department [address] [place] [address] Emergency Department Summary 11/15/24 MR#: [id number] Acct: [id number] Name: ELIANANANETTE Faith Rep #:[id number] : 1945 79 From: Beau Lane PCP: [...] Hyperlipidemia Ischemic cardiomyopathy Atherosclerotic heart disease of pilot station coronary artery without angina pectoris Displacement of [...] clinician: Hospitalist This note was generated with [address] dictation software. It may contain incorrectwords, spelling, [...] 86.4 H Lymph % (Auto) 6.7 L Scott % (Auto) 6.1 Eos % (Auto) 0.2 [...] subsegmental atelectasis, left lower lobe. Reading Location: [facility] Chest CTA 11/15/24 11:35 IMPRESSION: No signs of pulmonary embolism. Centrilobular emphysematous changes. Ground-glass opacities are scattered throughout the lower lobes. Can not exclude mild inflammation. Bronchiectatic changes along with bronchial thickening primarily in the lower lobes. Reading Location: [facility] Discharge Plan Triage Chief Complaint: Shortness [...] DO [Primary Care Provider] - Print Language: Cuban What to do if you have Problems For any increased pain, shortness of breath, bleeding, nausea or vomiting, chestpain, or any unexpected problems, contact your Primary Care Provider. Call [facility] ([phone]) or report tothe closest Emergency Room. Call 911 if necessary. 11/15/24 1403 Cosigner Signature (if applicable): CC: Dr. Fernandez Baig DO ~ Signed ADDENDUM by Dr. Beau Costa DO on 11/15/24 at 1408 ABG requested by hospitalist, pH 7.43, RSQ819, PaO2 85 11/15/24 1408 Cosigner Signature (if applicable): cc: Dr. 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 It may contain incorrectwords, spelling, and [...] 86.4 H Lymph % (Auto) 6.7 L Scott % (Auto) 6.1 Eos % (Auto) 0.2 [...] DO [Primary Care Provider] - Print Language: Cuban What to do if you have Problems For any increased pain, shortness of breath, bleeding, nausea or vomiting, chestpain, or any unexpected problems, contact your Primary Care Provider. Call [facility] ([phone]) or report to the closest Emergency Room. Call 911 if necessary. 11/15/24 1403 <Electronically signed by Beau Lane> Cosigner Signature (if applicable): CC: Dr. Fernandez Baig DO ~ Signed ADDENDUM by Dr. Beau Costa DO on 11/15/24 at 1408 ABG requested by hospitalist, pH 7.43, PSC267, PaO2 85 11/15/24 1408<Electronically signed by Beau Lane> Cosigner Signature (if applicable): cc: Dr. Fernandez Baig DO ~* Signed [facility] Work Phone: 1(911) 822-722005-08-2025 Radiology Diagnostic study note [facility] Imaging Services [address] [place] [address] [id number] CTA Chest W/WO Contrast MR#: [id number] Acct: [id number] Name: NANETTE MONROY Rep #: [id number] : 1945 M 79 From: Lala Montes MD PCP: Dr. Fernandez Baig DO Status: [facility] ER Study:CTA Chest W/WO Contrast Date of Exam: 11/15/24 Exam# [id number] Ordering Dr: Beau Costa DO PROCEDURE: CTA [...] Baig DO; Dr. Beau Costa DO ~ Maintenance Fitter: Signed [facility]05-08-2025 Radiology Diagnostic study note [facility] Imaging Services [address] [place], [place] [id number] Chest PA and Lateral MR#: [id number] Acct: [id number] Name: NANETTE MONROY Rep #: [id number] : 1945 M 79 From: Lala Montes MD PCP: Dr. Fernandez Baig DO Status: [facility] Study:Chest PA and Lateral Date of Exam: 11/15/24 Exam# [id number] Ordering Dr: Beau Costa DO PROCEDURE: CHEST [...] Baig DO; Dr. Beau Costa DO ~ Maintenance Fitter: Signed [facility]04-18-2025 History of Present illness Narrative* Anastasiya Fink, AUD - 10/26/2024 2:30 PM EDT [facility] [place] [facility] COCHLEAR IMPLANT ADULT PROGRAMMING Name: Nanette Monroy CCF#: [id number] Date of Service: October 26, 2024 Date of : 1945 Age: [age] year old COCHLEAR IMPLANT INFORMATION (see below for all device details) RIGHT ear: External Processor: Cochlear [employer] [id number] (N7) External Processor Cochle[employer] Nucleus 7 (Upgraded Sep 2021) Processor SN [id number] Magnet Strength 1M Internal Device Cochlear CI 512 Inactive electrodes E6-7 Surgery Date March 2016 Initial activation date May [address] Fox LEFT ear: Resound Nexia 960S-DR SN: [id number] with 1xMP and med power dome Fit and managed at an outside facility ([facility]) Wireless Accessory Set up Fee Paid: No HISTORY: Mr. Monroy was seen today to link his hearing aid in the Cochlear programming software upon return from office technician repair. Mr. Monroy reported the office technician sent a new hearing aid with a [...] Cochlear's software. Hearing aid was connected to AVA.ai software to ensure hearing aid had been programmed with most recent version of [employer]'s software. Device was placed in patient's filteration operator and removed from filteration operator which resolved issue with connecting to Cochlear's software. Additionally, while attempting to pair hearing aid and processor to patient's phone, both devices showed connected in Cochlear Laura Sapiens mary, but streaming was only to the [...] Jacqueline Aceves BA Doctor of Audiology ([place]) Sock Lining Stitcher Devon Ni, [facility] Clinical and Hearing Implant Hydrogen Power Plant Manager documented in this encounterAshtabula [facility] Center04-18-2025 NoteHNO ID: [id number] Author: ANASTASIYA FINK AUD Service: ? Author Type: Hydrogen Power Plant Manager Type: Progress Notes Filed: 10/31/2024 12:13 Note Text: [facility] [place] [facility] COCHLEAR IMPLANT ADULT PROGRAMMING Name: Nanette Monroy CC#: [id number] Date of Service: October 26, 2024 Date of : 1945 Age: [age] year old COCHLEAR IMPLANT INFORMATION (see below for all device details) RIGHT ear: External Processor: Cochlear [employer] [id number] (N7) External Processor Cochlear [employer] Nucleus 7 (Upgraded Sep 2021) Processor SN [id number] Magnet Strength 1M Internal Device Cochlear CI 512 Inactive electrodes E6-7 Surgery Date March 2016 Initial activation date May [address] Fox LEFT ear: Resound Nexia 960S-DRWC SN: [id number] with 1xMP and [employer] Search dome Fit and managed at an outside facility ([facility]) Wireless Accessory Set up Fee Paid: No HISTORY: Mr. Monroy was seen today to link his hearing aid in the Cochlear programming software upon return from office technician repair. Mr. Monroy reported the office technician sent a new hearing aid with a [...] Cochlear's software. Hearing aid was connected to AVA.ai software to ensure hearing aid had been programmed with most recent version of [employer]'s software. Device was placed in patient's filteration operator and removed from filteration operator which resolved issue with connecting to Cochlear's software. Additionally, while attempting to pair hearing aid and processor to patient's phone, both devices showed connected in Shoette mary, but streaming was only to the [...] Jacqueline Aceves BA Doctor of Audiology ([place]) Sock Lining Stitcher Devon Ni, [facility] Clinical and Hearing Implant [facility]ologistPrem[facility]04-10-20[facility] Telephone encounter Note* Telephone Encounter - Mathew Gudino - 10/18/2024 10:59 AM EDT Need to connect new THAYER to CI and get connected to phone. Got a repaired THAYER device. 10/26 2:30 opening JOSUE Gudino Hearing Implant Dye House Vat Worker [email or web address] [facility]04-10-2025 Miscellaneous Notes* Telephone Encounter - Mathew Gudino - 10/18/2024 10:59 AM EDT Need to connect new THAYER to CI and get connected to phone. Got a repaired THAYER device. 10/26 2:30 opening JOSUE Gudino Hearing Implant Dye House Vat Worker [email or web address] documented in this encounterAshtabula County Medical Center02-04-2025 Evaluation note* Diagnosis Onset Date Resolution Status Admit Date Chronic hypoxemic respirator y failure chronic August 14 9:29am Stage 3 severe COPD by GOLD classification August 14 9:29am Atherosclerotic heart diseas e of pilot station coronary artery without angina pectoris september 10:10am COPD (chronic obstructive pulmonary disease) chronic September 11 10:10am Hyperlipidemia chronic September 11, 2024 10:10am Ischemic cardiomyopathy chronic 2024 10:10am Chronic hypoxemic respirator y failure September 12, 2024 9:16am Stage 3 severe COPD by GOLD classification September 12, 2024 9:16am Acute on chronic hypoxic respiratory failure chronic November 15 1:43pm COPD exacerbation chronic November 1:43pm [facility] Work Phone: 1(851) 484-765112-11-2024 Telephone encounter Note* Telephone Encounter - Mathew Gudino - 06/20/2024 4:08 PM EST The mary for the hearing aid is frozen when you go in to use it. He used to be able to adjust different settings. If he puts the THAYER back in the filteration operator and bring it back then he gets it back but then as soon as he turns it off then he loses it again. Working right now, is able to stream to both ears. I will check in tomorrow and see if it resolves once the hearing aid has charged all night. Mathew Gudino Hearing Implant Dye House Vat Worker [facility]12-11-2024 Miscellaneous Notes* Telephone Encounter - Mathew Gudino - 06/20/2024 4:08 PM EST The mary for the hearing aid is frozen when you go in to use it. He used to be able to adjust different settings. If he puts the THAYER back in the filteration operator and bring it back then he gets it back but then as soon as he turns it off then he loses it again. Working right now, is able to stream to both ears. I will check in tomorrow and see if it resolves once the hearing aid has charged all night. Mathew Gudino Hearing Implant Dye House Vat Worker * Telephone Encounter - Mathew Gudino - [...] and call back. Mathew Gudino Hearing Implant Dye House Vat Worker documented in this encounterAshtabula County Medical Center12-11-2024 Telephone encounter Note * Telephone Encounter - [...] and call back. Mathew Gudino Hearing Implant Dye House Vat Worker [facility]12-10-2024 History of Present illness Narrative* Anastasiya Fink AUD - 06/19/2024 10:30 AM EST Images from the original note were not included. [facility] [place] [facility] COCHLEAR IMPLANT ADULT PROGRAMMING Name: Nanette Monroy CC#:[id number] Date of Service: 06/19/2024 Date of : 1945 Age: [age] year old COCHLEAR IMPLANT INFORMATION (see below for all device details) RIGHT ear: External Processor: Cochlear [employer] [id number] (N7) External Processor Cochlear [employer] Nucleus 7 (Upgraded Sep 2021) Processor SN [id number] Magnet Strength 1M Internal Device Cochlear CI 512 Inactive electrodes E6-7 Surgery Date March 2016 Initial activation date May [address] Fox LEFT ear: Resound Nexia 960S-DRC SN: [id number] with 1xMP and med power dome Fit and managed at an outside facility ([place]) Wireless Accessory Set up Fee Paid: No [...] his managing ENT instead of establishing with [facility] * Feels he hears better with his new hearing aid. Would like to have this managed at [facility] AIDED AUDIOMETRIC TESTING: Audiologic testing was completed in the sound field with the speech processor(s) at user settings (Program: 1; Volume: 6; Sensitivity: 12.) before programming. See the SmartForm Audiogram for obtained thresholds. Speech perception testing was completed at 60 farm implement mechanic using recorded stimuli in the sound field at 0 degrees azimuth. NOTE: The contralateral ear was plugged and muffed or masked during testing. The following testing and results were obtained: Nqwdvbccs-Quyhftr-Vntokkomu Words (CNC) Test Condition List # Phonemes [...] 35 dB HL from 250-500 Hz and 7318-6872 Hz. Baseline speech measures obtained today demonstrate [...] of auditory status 37 minutes Devon Ni, [facility] Clinical and Hearing Implant Hydrogen Power Plant Manager documented in this encounterAshtabula County Medical Center12-10-2024 NoteHNO ID: [id number] Author: ANASTASIYA FINK AUD Service: ? Author Type: Hydrogen Power Plant Manager Type: Progress Notes Filed: 06/26/2024 22:36 Note Text: [facility] [place] [facility] Balance [facility] COCHLEAR IMPLANT ADULT PROGRAMMING Name: Nanette Monroy [facility]#:[id number] Date of Service: 06/19/2024 Date of : 1945 Age: [age] year old COCHLEAR IMPLANT INFORMATION (see below for all device details) RIGHT ear: External Processor: Cochlear [employer] [id number] (N7) External Processor Cochlear [employer] Nucleus 7 (Upgraded Sep 2021) Processor SN [id number] Magnet Strength 1M Internal Device Cochlear CI 512 Inactive electrodes E6-7 Surgery Date March 2016 Initial activation date May [address] Fox LEFT ear: Resound Nexia 960S-DRWC SN: [id number] with 1xMP and [employer] dome Fit and managed at an outside facility ([facility]) Wireless Accessory Set up Fee Paid: No [...] his managing ENT instead of establishing with [facility] * Feels he hears better with his new hearing aid. Would like to have this managed at [facility] AIDED AUDIOMETRIC TESTING: Audiologic testing was completed in the sound field with the speech processor(s) at user settings (Program: 1; Volume: 6; Sensitivity: 12.) before programming. See the [facility] Audiogram for obtained thresholds. Speech perception testing was completed at 60 farm implement mechanic using recorded stimuli in the sound field at 0 degrees azimuth. NOTE: The contralateral ear was plugged and muffed or masked during testing. The following testing and results were obtained: Drromnadr-Nnpiolj-Xeuuwbcix Words (CNC) Test Condition List # Phonemes [...] 35 dB HL from 250-500 Hz and 1859-1250 Hz. Baseline speech measures obtained today demonstrate [...] device immediately and contact (more content not included)...[place] [address]-08-2024 Note. MICRO - Microbiology PROCEDURE: Urine Culture [...] Locations *1: This test was performed at: [facility], [address] [place] [address], [facility]- , [facility]10-07-2024 Telephone encounter Note* Telephone Encounter - Mathew Gudino - 04/16/2024 4:01 PM EDT Fit with THAYER- Phonak, recommended Nexia from resound. Ordered a demo for him to try. Coming in [facility] fit with demo. Questions about phone pairing to hearing aid THAYER through- has to May 21 to do exchange Jerrica West [facility]10-07-2024 Miscellaneous Notes* Telephone Encounter - Mathew Gudino - 04/16/2024 4:01 PM EDT Fit with THAYER- Phonak, recommended Nexia from resound. Ordered a demo for him to try. Coming in [facility] fit with demo. Questions about phone pairing to hearing aid THAYER through- has to May 21 to do exchange Jerrica West documented in this encounterAshtabula County Medical Center09-24-2024 History of Present illness Narrative* Anastasiya Fink AUD - 04/03/2024 10:30 AM EDT [facility] [place] [facility] Balance [facility] COCHLEAR IMPLANT ADULT PROGRAMMING Name: Nanette Monroy [facility]#: [id number] Date of Service: April 03, 2024 Date of : 1945 Age: [age] year old COCHLEAR IMPLANT INFORMATION (see below for all device details) Updated: April 03, 2024 RIGHT ear: External Processor: Cochlear [employer] HI7901 (N7) External Processor Cochlear [employer] Nucleus 7 (Upgraded Sep 2021) Processor SN [id number] Magnet Strength 1M Internal Device Cochlear CI 512 Inactive electrodes E6-7 Surgery Date March 2016 Initial activation date May [address] Fox LEFT ear: Phonak Audeo L90-RL with 2M sap bobj developer and med vented dome Fit and managed at an outside facility ([place]) Wireless Accessory Set up Fee Paid: No [...] Cochlear and they recommended he schedule with [facility] * Recently dropped processor and it stopped [...] ear (a few weeks ago), managed at [place] in [place]. Hydrogen Power Plant Manager there told him she did not want to make too many changes to his hearing aid programming until he had his implant reprogrammed * Has not been hearing well on the phone when using Bluetooth streaming to left hearing aid * Reported he received some insurance coverage ([place] [employer] supplement) towards his hearing aid, but [...] or One. Recommend patient return to fitting juke box mechanic to determine if hearing aid can be exchanged for a Resound device. If that clinic unable to work with Resound, offered for patient to return to [facility] for fitting of a Resound device. COCHLEAR [...] * Patient will return to hearing aid juke box mechanic to attempt to return Phonak hearing and and exchange for Resound. He was provided with contact number for Mathew Gudino, HIP coordinator, to reach out once he has further information on whether or not this can be done at his local juke box mechanic office or should he want to purchase a hearing aid through [facility]. * Schedule follow-up for 2-3 months to follow-up on changes and complete aided testing * Patient aware he will need to schedule with otology at [facility] to get established for any paperwork for [...] of auditory status 0 minutes Devon Ni, [facility] Clinical and Hearing Implant Hydrogen Power Plant Manager documented in this encounterAshtabula County Medical Center09-24-2024 NoteHNO ID: [id number] Author: ANASTASIYA FINK AUD Service: ? Author Type: Hydrogen Power Plant Manager Type: Progress Notes Filed: 04/03/2024 12:58 Note Text: [facility] [place] [facility] Balance [facility] COCHLEAR IMPLANT ADULT PROGRAMMING Name: Nanette Monroy CCF#: [id number] Date of Service: April 03, 2024 Date of : 1945 Age: [age] year old COCHLEAR IMPLANT INFORMATION (see below for all device details) Updated: April 03, 2024 RIGHT ear: External Processor: Cochlear [employer] [id number] (N7) External Processor Cochlear [employer] Nucleus 7 (Upgraded Sep 2021) Processor SN [id number] Magnet Strength 1M Internal Device Cochlear CI 512 Inactive electrodes E6-7 Surgery Date March 2016 Initial activation date May [address] Fox LEFT ear: Phonak Audeo L90-RL with 2M sap bobj developer and med vented dome Fit and managed at an outside facility ([place]) Wireless Accessory Set up Fee Paid: No [...] Cochlear and they recommended he schedule with [facility] * Recently dropped processor and it stopped [...] ear (a few weeks ago), managed at [place] in [place]. Hydrogen Power Plant Manager there told him she did not want to make too many changes to his hearing aid programming until he had his implant reprogrammed * Has not been hearing well on the phone when using Bluetooth streaming to left hearing aid * Reported he received some insurance coverage ([place] [employer] supplement) towards his hearing aid, but [...] or One. Recommend patient return to fitting juke box mechanic to determine if hearing aid can be exchanged for a Resound device. If that clinic unable to work with Resound, offered for patient to return to [facility] for fitting of a Resound device. 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 Hyperlipidemia chronic Ischemic cardiomyopathy [facility] Work Phone: Evaluation note* Diagnosis Onset Date Resolution Status Chronic hypoxemic respiratory failure chronic 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 COPD (chronic obstructive pulmonary disease) chronic Hyperlipidemia chronic Ischemic cardiomyopathy [facility] Work Phone: Evaluation note* Diagnosis Bilateral hearing loss, unspecified hearing loss type- Primary Cochlear implant in place Other postprocedural status documented in this encounter [facility] note* Diagnosis Sensorineural hearing loss (SNHL) of 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 Other postprocedural status documented in this encounter [facility] note* Diagnosis Sensorineural hearing loss (SNHL) of 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 Other postprocedural status documented in this encounter [facility] Center[facility] and physical note Author Rohan Henao [facility] Note Date/Time November 15, 2024 2:58pm [facility] Medical Records Department [address] [place] [id number] H&P Exam - Hospitalist 11/15/24 1345 MR#: [id number] Acct: [id number] Name: ELIANANANETTE Rep #:[id number] : 1945 79 From: Rohan Cortez PCP: Dr. Fernandez Baig DO Status:ADM IN Location: [facility] [id number] HPI - General General Date of Admission: [...] was done and is discussed assessment plan. 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 Development Director consult. Pneumonia workup ordered. ABG 7.4 on [...] vasopressor if needed. Total time spent in [id number]-[id number] encounter in discussion of advanced directive 17 minutes. Laboratory Results 11/15/24 10:13: WBC 20.1 H, RBC 4.43 L, Hgb 14.0, Hct 42.3, MCV 95.5 H, MCH 31.6, MCHC 33.1, RDW Std Deviation 47.7 H, RDW Coeff of Crystal 13.5, Plt Count 221,MPV 9.4, Immature Gran % (Auto) 0.400, Neut % (Auto) 86.4 H, Lymph % (Auto) 6.7 L, Scott % (Auto) 6.1, Eos % (Auto) 0.2, [...] O2 Saturation 97, O2 % 5.0, ABG [id number], ABG pO2 86, Maria R Test Positive, [...] Location: [facility] Charges/Coding Visit Charges Inpatient E&M: 68977 Init Hosp L3 Procedures Hospitalists Procedures: 91132 Advncd Care Plan 30 Min 11/15/24 1458 <Electronically signed by Rohan Henao MD> Cosigner Signature (if applicable): CC: Dr. Rohan Henao MD; Dr. Fernandez Baig, DO~ Signed [facility] Work Phone: Hospital course Narrative No data available for this section [facility] Hospital Discharge instructions No data available for this section [facility] Reason for referral (narrative)No reason for referral information availableWLakeHealth [facility] Work Phone: Chief Complaint and Reason for Visit Chief Complaint 6 M FU 6 m fu Reason for Visit Chronic hypoxemic re spiratory failure COPD (chronic obstructive pulmonary disease) BALDERAS (dyspnea on exertion) Atherosclerotic heart disease of [place] coronary artery without angina pectoris Hyperlipidemia Ischemic cardiomyopathy Chief Complaint 6 M FU 1 Y FU/PREV PFM INT LABS Reason for Visit Chronic hypoxemic re spiratory failure Stage 3 severe COPD by GOLD classification 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 COPD (chronic [...] 2024 9:29am Atherosclerotic heart diseas e of [place] coronary artery without angina pectoris September 11, 2024 10:10am COPD (chronic obstructive pulmonary dise ase) September 11, 2024 10:10am Hyperlipidemia September 11, 2024 10:1 0am Ischemic cardiomyopathy September 11, 2024 10:10am Chronic hypoxemic respiratory failure [facility] 2024 9:16am Stage 3 severe COPD by [...] December 14, 2021 3 :51pm Power of Motion Picture Equipment Supervisor Yes December 14, 2021 3:51pm Advance Directive Response Recorded Date/ Time Living Will Yes December 14, 2021 3 :51pm Do you have a Healthcare Power of Motion Picture Equipment Supervisor? Yes December 14, 2021 3:51pm Do you have a Healthcare Power of Motion Picture Equipment Supervisor? No November 15, 2024 10:04am Advance Directives Yes December 14 3:51pm Advance Directive Response Recorded Date/ Time Living Will Yes December 14, 2021 3 :51pm Do you have a Healthcare Power of Motion Picture Equipment Supervisor? Yes December 14, 2021 3:51pm Do you have a Healthcare Power of Motion Picture Equipment Supervisor? Yes November 15, 2024 3:09pm Name of Medical Power of Motion Picture Equipment Supervisor itzel [email or web address] November 15, 2024 3:09pm Advance Directives Yes December 14 3:51pm Summary Purpose Additional Source Comments Goals (unrecognized section and content) Goals may be documented in a n alternate section (unrecognized sect ion and content) No Status Records FoundNo Status Records FoundNo Status Records FoundNo Status Records FoundNo Status Records Found INFORMATION SOURCE (unrecogn ized section and content) DATE CREATED AUTHOR 07/11/2023 [facility] ([place] DATE CREATED AUTHOR AUTHOR'S ORGANIZ ATION 06/28/2024 [facility] DATE CREATED AUTHOR AUTHOR'S ORGANIZ ATION 07/22/2024 [facility] DATE CREATED AUTHOR AUTHOR'S ORGANIZ ATION 11/14/2024 [facility] DATE CREATED AUTHOR AUTHOR'S ORGANIZ ATION 12/04/2024 [facility] Care Teams (unrecognized sec tion and content) Team Status: Active Member Role Status Dates Dr. Fernandez Baig DO Family Provider Active Dr. Fernandez Baig DO Primary Care Provider Active Team Status: Inactive Member Role Status Dates Dr. Fernandez Baig DO Primary Care Provider, Referrin g Provider Active Azucena Bethea SCOURING MACHINE TENDER, SCOURING MACHINE TENDER-C Attending Provider Active Team Status: Inactive Member [...] 14, 2024 End: August 14, 2024 Dr. Feranndez Baig DO Referring Provider Active Start: August 14, 2024 End: August 14, 2024 Azucena Bethea NP, SCOURING MACHINE TENDER-C Attending Provider Active Start: August 14, 2024 End: August 14, 2024 Team Status: Inactive Member Role Status Dates Dr. Fernandez Baig DO Primary Care Provider Active Start: September 11, 2024 End: September 11, 2024 Dr. Fernandez Baig DO Referring Provider Active Start: September 11, 2024 End: September 11, 2024 Yung Huntley SCOURING MACHINE TENDER, SCOURING MACHINE TENDER-C Attending Provider Active S tart: September 11, 2024 End: September 11, 2024 Team Status: Inactive Member Role Status Dates Dr. Fernandez Baig DO Primary Care Provider Active Start: September 12, 2024 End: September 12, 2024 Dr. Fernandez Baig DO Referring Provider Active Start: September 12, 2024 End: September 12, 2024 Azucena Bethea SCOURING MACHINE TENDER, SCOURING MACHINE TENDER-C Attending Provider Active Start: September 12, 2024 [...] rt: November 15, 2024 Azucena Bethea NP, SCOURING MACHINE TENDER-C Other Provider Active Start: November 15, 2024 Mathew Low , SCOURING MACHINE TENDER-C Other Provider Active St art: November 15, [...] 2024 End: November 19, 2024 Azucena Bethea SCOURING MACHINE TENDER, SCOURING MACHINE TENDER-C Other Provider Active Start: November 15, 2024 End: November 19, 2024 Mathew Low , SCOURING MACHINE TENDER-C Other Provider Active St art: November 15, [...] End: November 19, 2024 Naya Livingston NP, SCOURING MACHINE TENDER-C Other Provider Active Start: November 15, 2024 End: November 19, 2024 CARMELITA Vasquze Other Provider Active Start: M 2024 End: [...] rt: November 16, 2024 Azucena Bethea NP, SCOURING MACHINE TENDER-C Other Provider Active Start: November 16, 2024 [...] rt: November 16, 2024 Azucena Bethea NP, SCOURING MACHINE TENDER-C Other Provider Active Start: November 16, 2024 [...] Sta rt: November 17, 2024 Azucena Bethea SCOURING MACHINE TENDER, SCOURING MACHINE TENDER-C Other Provider Active Start: November 17, 2024 Mathew Low , SCOURING MACHINE TENDER-C Other Provider Active St art: November 17, 2024 Dr. Khai Heart , Other Provider Active Sta rt: November 17, 2024 Dr. Constanza Shearer MD Other Provider Active Start : November 17, 2024 Dr. Bhavana Tellez MD Other Provider Active St art: November 17, 2024 Jenny Tijerina , SCOURING MACHINE TENDER-C Other Provider Active Sta rt: November 17, 2024 Naya Livingston SCOURING MACHINE TENDER, SCOURING MACHINE TENDER-C Other Provider Active Start: November 17, 2024 [...] Sta rt: November 18, 2024 Azucena Bethea SCOURING MACHINE TENDER, SCOURING MACHINE TENDER-C Other Provider Active Start: November 18, 2024 Mathew Low , SCOURING MACHINE TENDER-C Other Provider Active St art: November 18, 2024 Dr. Khai Heart , Other Provider Active Sta rt: November 18, 2024 Dr. Constanza Shearer MD Other Provider Active Start : November 18, 2024 Dr. Bhavana Tellez MD Other Provider Active St art: November 18, 2024 Jenny Tijerina NP-C Other Provider Active Sta rt: November 18, 2024 Naya Livingston NP, SCOURING MACHINE TENDER-C Other Provider Active Start: November 18, 2024 [...] Sta rt: November 19, 2024 Azucena Bethea SCOURING MACHINE TENDER, SCOURING MACHINE TENDER-C Other Provider Active Start: November 19, 2024 Mathew Low , SCOURING MACHINE TENDER-C Other Provider Active St art: November 19, 2024 Dr. Khai Heart DO Other Provider Active Sta rt: November 19, 2024 Dr. Constanza Shearer MD Other Provider Active Start : November 19, 2024 Dr. Bhavana Tellez MD Other Provider Active St art: November 19, 2024 Jenny Tijerina , [place]-C Other Provider Active Sta rt: November 19, 2024 Naya Livingston NP, SCOURING MACHINE TENDER-C Other Provider Active Start: November 19, 2024 CARMELITA Vasquez Other Provider Active Start: M 2024 Source Comments (unrecognize d section and content) In the event this informatio n is protected by the Federal Confidentiality of Alcohol and Drug Abuse Patient Records regulations: The Federal rules restrict any use of the information to criminally investigate or prosecute any alcohol or drug abuse patient.[facility] the event this information is protected by the Federal Confidentiality of Alcohol and Drug Abuse Patient Records regulations: The Federal rules restrict any use of the information to criminally investigate or prosecute any alcohol or drug abuse patient.[facility] the event this information is protected by the Federal Confidentiality of Alcohol and Drug Abuse Patient Records regulations: The Federal rules restrict any use of the information to criminally investigate or prosecute any alcohol or drug abuse patient.[facility] the event this information is protected by the Federal Confidentiality of Alcohol and Drug Abuse Patient Records regulations: The Federal rules restrict any use of the information to criminally investigate or prosecute any alcohol or drug abuse patient.[facility] Center[facility] the event this information is protected by the Federal Confidentiality of Alcohol and Drug Abuse Patient Records regulations: The Federal rules restrict any use of the information to criminally investigate or prosecute any alcohol or drug abuse patient.[facility] Center[facility] the event this information is protected by the Federal Confidentiality of Alcohol and Drug Abuse Patient Records regulations: The Federal rules restrict any use of the information to criminally investigate or prosecute any alcohol or drug abuse patient.[facility] Reason for Visit (unrecogniz ed section and [...] BE BASED ON THE PRIMARY CLINICAL RECORDS. [facility] [employer] provides no warranty or guarantee of the accuracy or completeness of information in this document.
--- OUTSIDE RECORDS SUMMARY | 2025-01-21 05:07 | XMS RPT_ITS | CCD ---
Author Organization [facility] Care Team Providers Care Rn Clinical Documentation Specialist Name Role Phone FERNANDEZ BAIG DO Primary Care Physician Dr. Fernandez Baig Primary Care Provider Dr. Fernandez Baig Referring Provider [phone] Dr. Harsh Manzo Attending Provider Shahab MAE, CARMELITA Mcghee Attending Provider FERNANDEZ BAIG DO Attending Unavailable FERNANDEZ BAIG DO Primary Care Unavailable FERNANDEZ BAIG DO Attending Unavailable FERNANDEZ BAIG DO Primary Care Unavailable Dr. Fernandez Baig Primary Care Provider [phone] Dr. Fernandez Baig Referring Provider Neema DUNCAN HARBOUR MASTER-C Azucena Attending Provider Dr. Wilberto Tillman Attending [...] Provider Manfred BAGLEY, Dr. Streeter Other Provider [phone] Jovany RUTH, Dr. House Other Provider Vargas BAGLEY, Dr. Khai Shelton Other Provider [phone] Lincoln BAGLEY, Dr. Mejia Other Provider [phone] Klarissa BAGLEY, Dr. Toledo Other Provider [phone] Se BAGLEY, Dr. Amos Other Provider [phone] Laura BAGLEY, Dr. Gonzalez Other Provider Jose BAGLEY, Dr. De La Rosa Other Provider [phone] Yasir BAGLEY, Dr. Muhammad Other Provider [phone] Vinod BAGLEY, Dr. Gross Other Provider Damien BAGLEY, Dr. Chow Other Provider Unavailabl jacob Crook MD, Dr. Ramírez Other Provider Radha BAGLEY, Dr. Torres Other Provider Nick BAGLEY, Dr. Freedman Other Provider [phone] Samra BAGLEY, Dr. Blancas Other Provider Yeny RUTH, Dr. June Other Provider Rosy BAGLEY, Dr. Robert Other Provider [phone] Cecy BAGLEY, Dr. Sanchez Other Provider [phone] Doug Lai DO Other Provider Dr. Yusuf Stearns MD Other Provider Tay Gurrola MD, Dr. Truong Other Provider Jeffy BAGLEY, Dr. Enrique Other Provider Neema HARBOUR MASTER-C, Azucena Other Provider Devante HARBOUR MASTER-C, Mathew Mcghee Other Provider Juliano BAGLEY, Dr. Madrigal Other Provider Sly RUTH, Dr. Khai Monroe Other Provider Manfred BAGLEY, Dr. Apodaca Other Provider Geoff BAGLEY, Dr. Bateman Other Provider [phone] Lilliana HARBOUR MASTER-C, Jenny Other Provider Unavailabl e Miki HARBOUR MASTER-[employer], Naya Other Provider Masci PA, Adrianne Other Provider Jovany RUTH, Dr. House Attending Provider Yosvany BAGLEY, Dr. Bishop Attending Provider Neema HARBOUR MASTER, Azucena Attending Unavailable Jovanni, Fernandez Referring Unavailable Jovanni, Fernandez Primary Care Unavailable Neema DUNCAN, Azucena Attending Unavailable Jovanni, Fernandez Referring Unavailable Jovanni, Fernandez Primary Care Unavailable Dario Bar Attending Unavailable Jovanni, Fernandez Primary Care Unavailable Jovanni, Fernandez Primary Care Unavailable Korin Henaosh Admitting Unavailable Jay Cueav Consulting Unavailable Rohan Henao Attending Unavailable Jermaine [...] Tre Cyr Consulting Unavailable Bette Saez Consulting UnavailCarols Kapoor Consulting Unavailable Rj Garcia Consulting Unavailable [...] [tiotropium] Drug Allergy 2 Unknown (qualifier value) [facility] (1 source) VITAMIN B12 INJECTION Propensity to adverse reactions 1 BLURRED VISION AND HOT FLASH [facility] Work Phone: (3 sources) vitamin B12 Drug Allergy 4 Other [facility] Comment on above: BLURRED VISION AND H OT FLASHES (1 source) tiotropium Drug Allergy 5 [facility] Repository (1 source) vitamin B12 Drug Allergy 5 [facility] Repository Medications Current Medications Medication Drug Class(es) [...] extended release oral tablet (1 source) Uncompetitive S-siovye-B-aspartate Receptor Antagonist, Sigma-1 Agonist Start: 11-19-2024 Dextromethorphan-Guaifenesin 60-1,200 mg tablet extended release 12 hr Active 1 {tbl} PO TWICE A DAY 14 7 November 19, 2024 12:00am docusate sodium 50 mg / sennosides, fpc 8.6 mg oral tablet (1 source) Start: [...] BID, # 30 gram(s), 2 Refill(s), Pharmacy: [facility]/pharmacy #[id number], 177, cm, 06/13/20 11:13:00 EST, Height, kg, 06/13/20 11:13:00 EST, Dosing Weight Start Date: 06/13/20 Status: Ordered Psyllium Husk (Aspartame) (Daily Fiber (Psyllium-Aspart)) 3 gram Powder In Packet (1 source) Start: 11-19-2024 Psyllium Husk (Aspartame) (Daily Fiber (Psyllium-Aspart)) 3 gram Powder In Packet Active 1 NMA PO DAILY NEEDED as needed for Constipation 0 November 19, 2024 12:00am [id number] Completed/Discontinued Medications Medication Drug Class(es) Dates Sig [...] 06, 2016 1:39pm February 07, 2018 9:25am [id number] 200 actuat albuterol 0.09 mg/actuat metered dose [...] 2024 12:31pm August 20, 2024 10:53am Tiotropium [place] (4 sources) Anticholinergic Start: 07-07-2017 End: 10-10-2017 take 1 puff(s) by inhalation every twenty-four hours Tiotropium [place] (Spiriva Respimat) 2.5 mcg/actuation mist Discontinued 2 PUFF INHALATION Q24H July 07, 2017 3:02pm October 10, 2017 2:34pm administer at approximately the same time(s) each day Start: 07-07-2017 End: 10-10-2017 take 2.5 ug by inhalation every twenty-four hours Tiotropium [place] (Spiriva Respimat) 2.5 mcg/actuation mist Discontinued 2 NMA INHALATION Q24H July 07, 2017 1:00am October 10, 2017 2:34pm administer at approximately the same time(s) each day Start: 07-07-2017 End: 10-10-2017 take 1 puff(s) by inhalation every twenty-four hours Tiotropium [place] (Spiriva Respimat) 2.5 mcg/actuation mist Discontinued 2 [...] Profile (BMP )on 11-20-2024 BUN Normal 4-19 [facility] Comment on above: Result Comment: Canc elled via OM: Order cancelled - Patient discharged Performed By: #### L 500.2500 #### [facility] [address] [facility] [address] BUN/CRE Normal 10-20 [facility] Comment on above: Result Comment: Canc elled via OM: Order cancelled - Patient discharged Performed By: #### L 500.2500 #### [facility] [address] [facility] [address] Calcium Normal 7.6-11.0 [facility] Comment on above: Result Comment: Canc elled via OM: Order cancelled - Patient discharged Performed By: #### L 500.2500 #### [facility] [address] [facility] [address] CL Normal 98-108 [facility] Comment on above: Result Comment: Canc elled via OM: Order cancelled - Patient discharged Performed By: #### L 500.2500 #### [facility] [address] [facility] [address] CO2 Normal 21.0-32.0 [facility] Comment on above: Result Comment: Canc elled via OM: Order cancelled - Patient discharged Performed By: #### L 500.2500 #### [facility] [address] [place], [address] CREAT,SERUM Normal 0.70-1.20 [facility] Comment on above: Result Comment: Canc elled via OM: Order cancelled - Patient discharged Performed By: #### L 500.2500 #### [facility] [address] [place], [address] eGFR Normal >60 [facility] Comment on above: Result Comment: Canc elled via OM: Order cancelled - Patient discharged Performed By: #### L 500.2500 #### [facility] [address] [place], [address] GAP Normal 5-15 [facility] Comment on above: Result Comment: Canc elled via OM: Order cancelled - Patient discharged Performed By: #### L 500.2500 #### [facility] [address] [place], [address] GLU Normal 70-99 [facility] Comment on above: Result Comment: Canc elled via OM: Order cancelled - Patient discharged Performed By: #### L 500.2500 #### [facility] [address] [place], [address] Potassium Normal 3.3-5.1 [facility] Comment on above: Result Comment: Canc elled via OM: Order cancelled - Patient discharged Performed By: #### L 500.2500 #### [facility] [address] [place], [address] Basic Metabolic Profile (BMP) Normal 133-145 [facility] Comment on above: Result Comment: Canc elled via OM: Order cancelled - Patient discharged Performed By: #### L 500.2500 #### [facility] [address] [place], [address] CBC W/Diff, Automatedon 05-1 Absolute Neut Normal 2.0-7.7 [facility] Comment on above: Result Comment: Canc elled via OM: Order cancelled - Patient discharged Performed By: #### L 500.2500 #### [facility] [address] [place], [address] HCT Normal 40-54 [facility] Comment on above: Result Comment: Canc elled via OM: Order cancelled - Patient discharged Performed By: #### L 500.2500 #### [facility] [address] [place], [address] HGB Normal 13.0-16.5 [facility] Comment on above: Result Comment: Canc elled via OM: Order cancelled - Patient discharged Performed By: #### L 500.2500 #### [facility] [address] [place], [address] MCH Normal 27.0-32.0 [facility] Comment on above: Result Comment: Canc elled via OM: Order cancelled - Patient discharged Performed By: #### L 500.2500 #### [facility] [address] [place], [address] MCHC Normal 32-36 [facility] Comment on above: Result Comment: Canc elled via OM: Order cancelled - Patient discharged Performed By: #### L 500.2500 #### [facility] [address] [place], [address] MCV Normal 80-94 [facility] Comment on above: Result Comment: Canc elled via OM: Order cancelled - Patient discharged Performed By: #### L 500.2500 #### [facility] [address] [place], [address] NEUT% Normal 47-70 [facility] Comment on above: Result Comment: Canc elled via OM: Order cancelled - Patient discharged Performed By: #### L 500.2500 #### [facility] [address] [place], [address] PLT Normal 150-450 [facility] Comment on above: Result Comment: Canc elled via OM: Order cancelled - Patient discharged Performed By: #### L 500.2500 #### [facility] [address] [place], [address] RBC Normal 4.6-6.2 [facility] Comment on above: Result Comment: Canc elled via OM: Order cancelled - Patient discharged Performed By: #### L 500.2500 #### [facility] [address] [place], [address] RDW CV Normal 11.6-14.6 [facility] Comment on above: Result Comment: Canc elled via OM: Order cancelled - Patient discharged Performed By: #### L 500.2500 #### [facility] [address] [place], [address] RDW SD Normal 35.1-43.9 [facility] Comment on above: Result Comment: Canc elled via OM: Order cancelled - Patient discharged Performed By: #### L 500.2500 #### [facility] [address] [place], [address] WBC Normal 4.4-11.0 [facility] Comment on above: Result Comment: Canc elled via OM: Order cancelled - Patient discharged Performed By: #### L 500.2500 #### [facility] [address] [place], [address] Absolute lymphocyte countOrd ered By: Rohan Henao on 11-19-2024 Lymphocytes Auto (Unsp spec) [#/Vol] 2.28 10*3/uL 0.83-4.51 [facility] Absolute neutrophil countOrd ered By: Rohan Henao on 11-19-2024 Neutrophils (Bld) [#/Vol] 9.0 10*3/uL High 2.0-7.7 [facility] Anion gap in Serum or Plasma Ordered By: Rohan Henao on 11-19-2024 Anion gap [Moles/Vol] 9 mmol/L 5-15 [facility] Automated lymphocyte count a s percentage of total leukocytesOrdered By: Rohan Henao on 11-19-2024 Lymphocytes/100 WBC Auto (Unsp spec) 18.5 % Low 19-41 [facility] BUN/creatinine ratioOrdered By: Rohan Henao on 11-19-2024 Urea nitrogen/Creatinine [Mass ratio] 24.2 mg/mg High 10- [facility] Basic Metabolic Profile (BMP )on 11-19-2024 BUN/CRE 24.2 RATIO High 04-29 [facility] Comment on above: Performed By: #### L 509.7001, [id number] #### [facility] [address] [place], [address] Calcium [Mass/Vol] 8.5 mg/dL Normal 7.6-11.0 [facility] Comment on above: Performed By: #### L 509.7001, [id number] #### [facility] [address] [place], [address] Chloride [Moles/Vol] 106 mmol/L Normal 98-108 [facility] Comment on above: Performed By: #### L 509.7001, [id number] #### [facility] [address] [place], [address] CO2 [Moles/Vol] 24.1 mmol/L Normal 21.0-32.0 [facility] Comment on above: Performed By: #### L 509.7001, [id number] #### [facility] [address] [place], [address] Creatinine [Mass/Vol] 0.86 mg/dL Normal 0.70-1.20 [facility] Comment on above: Performed By: #### L 509.7001, [id number] #### [facility] [address] [place], [address] ECRCL 68.51 ml/min Normal 50-250 [facility] Comment on above: Performed By: #### L 509.7001, [id number] #### [facility] [address] [place], [address] GAP 9 Normal 5-15 [facility] Comment on above: Performed By: #### L 509.7001, [id number] #### [facility] [address] [place], [address] GFR/1.73 sq M.predicted among non-blacks MDRD (S/P/Bld) [Vol rate/Area] 88 mL/min/{1.73_m2} Normal >60 [facility] Comment on above: Result Comment: mL/m in/1.73m2 CKD-EPI Creatinine Equation (2020) Performed By: #### L 509.7001, [id number] #### [facility] [address] [place], [address] Glucose [Mass/Vol] 88 mg/dL Normal 70-99 [facility] Comment on above: Performed By: #### L 509.7001, [id number] #### [facility] [address] [place], [address] Potassium [Moles/Vol] 3.8 mmol/L Normal 3.3-5.1 [facility] Comment on above: Performed By: #### L 509.7001, [id number] #### [facility] [address] [place], [address] Sodium [Moles/Vol] 139 mmol/L Normal 133-145 [facility] Comment on above: Performed By: #### L 509.7001, [id number] #### [facility] [address] [place], [address] Urea nitrogen [Mass/Vol] 21 mg/dL High 4-19 [facility] Comment on above: Performed By: #### L 509.7001, [id number] #### [facility] [address] [place], [address] Basophil percentageOrdered B y: Rohan Juliano on 11-19-2024 Basophils/100 WBC (Bld) 0.1 % 0-1 [facility] CBC W/Diff, Automatedon 11-08-2024 Absolute Lymph 2.28 X10 3/uL Normal 0.83-4.51 [facility] Comment on above: Performed By: #### L 509.7001, [id number] #### [facility] [address] [place], [address] Absolute Neut 9.0 X10 3/uL High 2.0-7.7 [facility] Comment on above: Performed By: #### L 509.7001, [id number] #### [facility] [address] [place], [address] Basophils/100 WBC (Bld) 0.1 % Normal 0-1 [facility] Comment on above: Performed By: #### L 509.7001, [id number] #### [facility] [address] [place], [address] Eosinophils/100 WBC (Bld) 0.2 % Normal 0-5 [facility] Comment on above: Performed By: #### L 509.7001, [id number] #### [facility] [address] [place], [address] Erythrocyte distribution width (RBC) [Ratio] 13.4 % Normal 11.6-14.6 [facility] Comment on above: Performed By: #### L 509.7001, [id number] #### [facility] [address] [place], [address] Hematocrit (Bld) [Volume fraction] 36.6 % Low 40-54 [facility] Comment on above: Performed By: #### L 509.7001, [id number] #### [facility] [address] [place], [address] Hemoglobin (Bld) [Mass/Vol] 11.7 g/dL Low 13.0-16.5 [facility] Comment on above: Performed By: #### L 509.7001, [id number] #### [facility] [address] [place], [address] IG% 0.600 Normal 0.0-0.9 [facility] Comment on above: Result Comment: IG% - Immature Granulocytes (promyelocytes, myelocytes and metamyelocytes) > 1% indicates that a LEFT SHIFT is Present. Performed By: #### L 509.7001, [id number] #### [facility] [address] [place], [address] Lymphocytes/100 WBC (Bld) 18.5 % Low 19-41 [facility] Comment on above: Performed By: #### L 509.7001, [id number] #### [facility] [address] [place], [address] MCH (RBC) [Entitic mass] 30.9 pg Normal 27.0-32.0 [facility] Comment on above: Performed By: #### L 509.7001, [id number] #### [facility] [address] [place], [address] MCHC (RBC) [Mass/Vol] 32.0 g/dL Normal 32-36 [facility] Comment on above: Performed By: #### L 509.7001, [id number] #### [facility] [address] [place], [address] MCV (RBC) [Entitic vol] 96.6 fL High 80-94 [facility] Comment on above: Performed By: #### L 509.7001, [id number] #### [facility] [address] [place], [address] Monocytes/100 WBC (Bld) 8.1 % Normal 0-10 [facility] Comment on above: Performed By: #### L 509.7001, [id number] #### [facility] [address] [place], [address] Neutrophils/100 WBC (Bld) 72.5 % High 47-70 [facility] Comment on above: Performed By: #### L 509.7001, [id number] #### [facility] [address] [place], [address] Nucleated RBC (Bld) [#/Vol] 0 10*3/uL Normal 0-5 [facility] Comment on above: Performed By: #### L 509.7001, [id number] #### [facility] [address] [place], [address] Platelet mean volume (Bld) [Entitic vol] 9.2 fL Normal 6.2-12.0 [facility] Comment on above: Performed By: #### L 509.7001, [id number] #### [facility] [address] [place], [address] Platelets (Bld) [#/Vol] 206 10*3/uL Normal 150-450 [facility] Comment on above: Performed By: #### L 509.7001, [id number] #### [facility] [address] [place], [address] RBC (Bld) [#/Vol] 3.79 10*6/uL Low 4.6-6.2 [facility] Comment on above: Performed By: #### L 509.7001, [id number] #### [facility] [address] [place], [address] RDW SD 47.7 fl High 35.1-43.9 [facility] Comment on above: Performed By: #### L 509.7001, [id number] #### [facility] [address] [place], [address] WBC (Bld) [#/Vol] 12.4 10*3/uL High 4.4-11.0 [facility] Comment on above: Performed By: #### L 509.7001, [id number] #### [facility] [address] [place], [address] Carbon dioxide, total [Moles /volume] in Central venous bloodOrdered By: Rohan Henao on 11-19-2024 CO2 [Moles/Vol] 24.1 mmol/L 21.0-32.0 [facility] Chloride assayOrdered By: Andres Henao on 11-19-2024 Chloride [Moles/Vol] 106 mmol/L 98-108 [facility] Discharge Instructionon 11-08 Discharge Instruction [facility] Medical Records Department [address] [place] [address] Instructions for Home/Discharge Instructions 11/19/24 1019 MR#: [id number] Acct: [id number] Name: ELIANANANETTE Faith Rep #: [id number] : 1945 79 From: Rohan Henao MD [...] Shearer; Bhavana Tellez; Jenny Tijerina; Naya Livingston HARBOUR MASTER; Adrianne Mcqueen Discharge Orders/Prescription s Prescriptions: New [...] (Reason: Constipation) Qty: 0 0RF Rx Instructions: Caep-tit-gplywaw prednisone 10 mg tablet 10 mg PO [...] Mathew Low NP; CARMELITA Vasquez Signed Normal [facility] Eosinophil percentageOrdered By: Rohan Henao on 11-19-2024 Eosinophils/100 WBC (Bld) 0.2 % 0-5 [facility] Erythrocyte distribution wid th ratioOrdered By: Rohan Henao on 11-19-2024 Erythrocyte distribution width (RBC) [Ratio] 13.4 % 11.6-14.6 [facility] Erythrocyte distribution wid th standard deviationOrdered By: Rohan Henao on 11-19-2024 Erythrocyte distribution width (RBC) [Ratio] 47.7 fl High 35.1-43.9 [facility] Glomerular filtration rate ( GFR) estimation/1.73 sq m using serum, plasma, or whole bOrdered By: Rohan Henao on 11-19-2024 GFR/1.73 sq M.predicted among non-blacks MDRD (S/P/Bld) [Vol rate/Area] 88 mL/min/{1.73_m2} >60 [facility] Comment on above: mL/min/1.73m2 CKD-EP I Creatinine Equation (2020) Hematocrit Auto (Bld) [Volum e fraction]Ordered By: Rohan Henao on 11-19-2024 Hematocrit (Bld) [Volume fraction] 36.6 % Low 40-54 [facility] Hemoglobin measurementOrdere d By: Rohan Henao on 11-19-2024 Hemoglobin (Bld) [Mass/Vol] 11.7 g/dL Low 13.0-16.5 [facility] Immature granulocytes/100 WB C Auto (Bld)Ordered By: Rohan Henao on 11-19-2024 Immature granulocytes/100 WBC (Bld) 0.600 % 0.0-0.9 [facility] Comment on above: IG% - Immature Granu locytes (promyelocytes, myelocytes and metamyelocytes) > 1% indicates that a LEFT SHIFT is Present. MCV (mean corpuscular volume ) determinationOrdered By: Rohan Henao on 11-19-2024 MCV (RBC) [Entitic vol] 96.6 fL High 80-94 [facility] Mean corpuscular hemoglobin (MCH) determinationOrdered By: Rohan Henao on 11-19-2024 MCH (RBC) [Entitic mass] 30.9 pg 27.0-32.0 [facility] Mean corpuscular hemoglobin concentration (MCHC) determinationOrdered By: Rohan Henao on 11-19-2024 MCHC (RBC) [Mass/Vol] 32.0 g/dL 32-36 [facility] Mean platelet volume determi nationOrdered By: Rohan Henao on 11-19-2024 Platelet mean volume (Bld) [Entitic vol] 9.2 fL 6.2-12.0 [facility] Monocyte percentageOrdered B y: Rohan Henao on 11-19-2024 Monocytes/100 WBC (Bld) 8.1 % 0-10 [facility] Neutrophil percentageOrdered By: Rohan Henao on 11-19-2024 Neutrophils/100 WBC (Bld) 72.5 % High 47-70 [facility] Nucleated red blood cell per centageOrdered By: Rohan Henao on 11-19-2024 Nucleated RBC/100 WBC (Bld) [Ratio] 0 % 0-5 [facility] Platelet countOrdered By: Andres Henao on 11-19-2024 Platelets (Bld) [#/Vol] 206 10*3/uL 150-450 [facility] Potassium measurement (mass/ volume)Ordered By: Rohan Henao on 11-19-2024 Potassium (Unsp spec) [Mass/Vol] 3.8 mmol/L 3.3-5.1 [facility] RBC Auto (Bld) [#/Vol]Ordere d By: Rohan Henao on 11-19-2024 RBC (Bld) [#/Vol] 3.79 10*6/uL Low 4.6-6.2 [facility] Respiratory Cultureon 2024 RESPC Microorganism Spec Cult [...] S Tobramycin Islt ARIE <=1 S Normal [facility] Comment on above: Performed By: #### L 509.7001, L503.7505 #### [facility] Laboratory [address] [place], [place], [id number] Serum creatinine measurement (mass/volume)Ordered By: Rohan Henao on 11-19-2024 Creatinine [Mass/Vol] 0.86 mg/dL 0.70-1.20 [facility] Serum glucose measurement (m ass/volume)Ordered By: Rohan Henao on 11-19-2024 Glucose [Mass/Vol] 88 mg/dL 70-99 [facility] Serum or plasma calcium todd urement (mass/volume)Ordered By: Rohan Henao on 11-19-2024 Calcium [Mass/Vol] 8.5 mg/dL 7.6-11.0 [facility] Serum or plasma urea nitroge n measurement (mass/volume)Ordered By: Rohanandrez Henao on 11-19-2024 Urea nitrogen [Mass/Vol] 21 mg/dL High 4-19 [facility] Sodium levelOrdered By: Connie drummond Juliano on 11-19-2024 Sodium [Moles/Vol] 139 mmol/L 133-145 [facility] White blood cell (WBC) count Ordered By: Rohanandrez Henao on 11-19-2024 WBC (Bld) [#/Vol] 12.4 10*3/uL High 4.4-11.0 [facility] Basic Metabolic Profile (BMP )on 11-18-2024 BUN/CRE 25.3 RATIO High 10-20 [facility] Comment on above: Performed By: #### L 500.2500 #### [facility] Laboratory [address] [facility] [address] Calcium [Mass/Vol] 8.5 mg/dL Normal 7.6-11.0 [facility] Comment on above: Performed By: #### L 500.2500 #### [facility] Laboratory [address] [facility] [address] Chloride [Moles/Vol] 108 mmol/L Normal 98-108 [facility] Comment on above: Performed By: #### L 500.2500 #### [facility] Laboratory [address] [place], [address] CO2 [Moles/Vol] 22.2 mmol/L Normal 21.0-32.0 [facility] Comment on above: Performed By: #### L 500.2500 #### [facility] Laboratory [address] [place], [address] Creatinine [Mass/Vol] 0.96 mg/dL Normal 0.70-1.20 [facility] Comment on above: Performed By: #### L 500.2500 #### [facility] Laboratory [address] [place], [address] ECRCL 61.37 ml/min Normal 50-250 [facility] Comment on above: Performed By: #### L 500.2500 #### [facility] Laboratory [address] [place], [address] GAP 9 Normal 5-15 [facility] Comment on above: Performed By: #### L 500.2500 #### [facility] Laboratory [address] [place], [address] GFR/1.73 sq M.predicted among non-blacks MDRD (S/P/Bld) [Vol rate/Area] 80 mL/min/{1.73_m2} Normal >60 [facility] Comment on above: Result Comment: mL/m in/1.73m2 CKD-EPI Creatinine Equation (2020) Performed By: #### L 500.2500 #### [facility] Laboratory [address] [place], [address] Glucose [Mass/Vol] 116 mg/dL High 70-99 [facility] Comment on above: Performed By: #### L 500.2500 #### [facility] Laboratory [address] [place], [address] Potassium [Moles/Vol] 3.9 mmol/L Normal 3.3-5.1 [facility] Comment on above: Performed By: #### L 500.2500 #### [facility] Laboratory [address] [place], [address] Sodium [Moles/Vol] 139 mmol/L Normal 133-145 [facility] Comment on above: Performed By: #### L 500.2500 #### [facility] Laboratory [address] [place], [address] Urea nitrogen [Mass/Vol] 24 mg/dL High 4-19 [facility] Comment on above: Performed By: #### L 500.2500 #### [facility] Laboratory [address] [place], [address] Lactic Acidon 11-18-2024 Lactate [Moles/Vol] mmol/L Normal 0.0-2.0 [facility] Comment on above: Performed By: #### L 503.6005 #### [facility] Laboratory [address] [place], [address] Lactic acid measurementOrder ed By: Carlos Sanchez on 11-18-2024 Lactate [Moles/Vol] mmol/L 0.0-2.0 [facility] Basic Metabolic Profile (BMP )on 11-17-2024 BUN/CRE 23.2 RATIO High 10-20 [facility] Comment on above: Performed By: #### L 500.2500 #### [facility] Laboratory [address] [place], [address] Calcium [Mass/Vol] 9.0 mg/dL Normal 7.6-11.0 [facility] Comment on above: Performed By: #### L 500.2500 #### [facility] Laboratory [address] [place], [address] Chloride [Moles/Vol] 104 mmol/L Normal 98-108 [facility] Comment on above: Performed By: #### L 500.2500 #### [facility] Laboratory [address] [place], [address] CO2 [Moles/Vol] 22.7 mmol/L Normal 21.0-32.0 [facility] Comment on above: Performed By: #### L 500.2500 #### [facility] Laboratory [address] [place], [address] Creatinine [Mass/Vol] 0.97 mg/dL Normal 0.70-1.20 [facility] Comment on above: Performed By: #### L 500.2500 #### [facility] Laboratory [address] [place], [address] ECRCL 60.74 ml/min Normal 50-250 [facility] Comment on above: Performed By: #### L 500.2500 #### [facility] Laboratory [address] [place], [address] GAP 11 Normal 5-15 [facility] Comment on above: Performed By: #### L 500.2500 #### [facility] Laboratory [address] [place], [address] GFR/1.73 sq M.predicted among non-blacks MDRD (S/P/Bld) [Vol rate/Area] 79 mL/min/{1.73_m2} Normal >60 [facility] Comment on above: Result Comment: mL/m in/1.73m2 CKD-EPI Creatinine Equation (2020) Performed By: #### L 500.2500 #### [facility] Laboratory [address] [place], [address] Glucose [Mass/Vol] 112 mg/dL High 70-99 [facility] Comment on above: Performed By: #### L 500.2500 #### [facility] Laboratory [address] [place], [address] Potassium [Moles/Vol] 4.3 mmol/L Normal 3.3-5.1 [facility] Comment on above: Performed By: #### L 500.2500 #### [facility] Laboratory [address] [place], [address] Sodium [Moles/Vol] 138 mmol/L Normal 133-145 [facility] Comment on above: Performed By: #### L 500.2500 #### [facility] Laboratory [address] [place], [address] Urea nitrogen [Mass/Vol] 23 mg/dL High 4-19 [facility] Comment on above: Performed By: #### L 500.2500 #### [facility] Laboratory [address] [place], [address] Lactic Acidon 11-17-2024 Lactate [Moles/Vol] 2.0 mmol/L Normal 0.0-2.0 [facility] Comment on above: Order Comment: Y Result Comment: Crit ical Result(s) Called to Devonte BARONE (U): by Ike:??Results read back by same. Performed By: #### L 509.7001, L503.7505 #### [facility] Laboratory [address] [place], [address] Basic Metabolic Profile (BMP )on 11-16-2024 BUN/CRE 17.4 RATIO Normal 10-20 [facility] Comment on above: Performed By: #### L 100.0100, L500.2500 #### [facility] Laboratory [address] [place], [address] Calcium [Mass/Vol] 8.7 mg/dL Normal 7.6-11.0 [facility] Comment on above: Performed By: #### L 100.0100, L500.2500 #### [facility] Laboratory [address] [place], [address] Chloride [Moles/Vol] 105 mmol/L Normal 98-108 [facility] Comment on above: Performed By: #### L 100.0100, L500.2500 #### [facility] Laboratory [address] [place], [address] CO2 [Moles/Vol] 18.6 mmol/L Low 21.0-32.0 [facility] Comment on above: Performed By: #### L 100.0100, L500.2500 #### [facility] Laboratory [address] [place], [address] Creatinine [Mass/Vol] 0.97 mg/dL Normal 0.70-1.20 [facility] Comment on above: Performed By: #### L 100.0100, L500.2500 #### [facility] Laboratory [address] [place], [address] ECRCL 60.74 ml/min Normal 50-250 [facility] Comment on above: Performed By: #### L 100.0100, L500.2500 #### [facility] Laboratory [address] [place], [address] GAP 15 Normal 5-15 [facility] Comment on above: Performed By: #### L 100.0100, L500.2500 #### [facility] Laboratory [address] [place], [address] GFR/1.73 sq M.predicted among non-blacks MDRD (S/P/Bld) [Vol rate/Area] 79 mL/min/{1.73_m2} Normal >60 [facility] Comment on above: Result Comment: mL/m in/1.73m2 CKD-EPI Creatinine Equation (2020) Performed By: #### L 100.0100, L500.2500 #### [facility] Laboratory [address] [place], [address] Glucose [Mass/Vol] 114 mg/dL High 70-99 [facility] Comment on above: Performed By: #### L 100.0100, L500.2500 #### [facility] Laboratory [address] [place], [address] Potassium [Moles/Vol] 4.3 mmol/L Normal 3.3-5.1 [facility] Comment on above: Performed By: #### L 100.0100, L500.2500 #### [facility] Laboratory [address] [place], [address] Sodium [Moles/Vol] 139 mmol/L Normal 133-145 [facility] Comment on above: Performed By: #### L 100.0100, L500.2500 #### [facility] Laboratory [address] [place], [address] Urea nitrogen [Mass/Vol] 17 mg/dL Normal 4-19 [facility] Comment on above: Performed By: #### L 100.0100, L500.2500 #### [facility] Laboratory [address] [place], [address] CBC W/Diff, Automatedon 05-0 9-2025 Absolute Lymph 0.64 X10 3/uL Low 0.83-4.51 [facility] Comment on above: Performed By: #### L 100.0100, L500.2500 #### [facility] Laboratory [address] [place], [address] Absolute Neut 14.4 X10 3/uL High 2.0-7.7 [facility] Comment on above: Performed By: #### L 100.0100, L500.2500 #### [facility] Laboratory [address] [place], [address] Basophils/100 WBC (Bld) 0.1 % Normal 0-1 [facility] Comment on above: Performed By: #### L 100.0100, L500.2500 #### [facility] Laboratory [address] [place], [address] Eosinophils/100 WBC (Bld) 0.0 % Normal 0-5 [facility] Comment on above: Performed By: #### L 100.0100, L500.2500 #### [facility] Laboratory [address] [place], [address] Erythrocyte distribution width (RBC) [Ratio] 13.4 % Normal 11.6-14.6 [facility] Comment on above: Performed By: #### L 100.0100, L500.2500 #### [facility] Laboratory [address] [place], [address] Hematocrit (Bld) [Volume fraction] 42.5 % Normal 40-54 [facility] Comment on above: Performed By: #### L 100.0100, L500.2500 #### [facility] Laboratory [address] [place], [address] Hemoglobin (Bld) [Mass/Vol] 13.8 g/dL Normal 13.0-16.5 [facility] Comment on above: Performed By: #### L 100.0100, L500.2500 #### [facility] Laboratory [address] [place], [address] IG% 0.700 Normal 0.0-0.9 [facility] Comment on above: Result Comment: IG% - Immature Granulocytes (promyelocytes, myelocytes and metamyelocytes) > 1% indicates that a LEFT SHIFT is Present. Performed By: #### L 100.0100, L500.2500 #### [facility] Laboratory [address] [place], [address] Lymphocytes/100 WBC (Bld) 4.2 % Low 19-41 [facility] Comment on above: Performed By: #### L 100.0100, L500.2500 #### [facility] Laboratory [address] [place], [address] MCH (RBC) [Entitic mass] 31.5 pg Normal 27.0-32.0 [facility] Comment on above: Performed By: #### L 100.0100, L500.2500 #### [facility] Laboratory [address] [place], [address] MCHC (RBC) [Mass/Vol] 32.5 g/dL Normal 32-36 [facility] Comment on above: Performed By: #### L 100.0100, L500.2500 #### [facility] Laboratory [address] [place], [address] MCV (RBC) [Entitic vol] 97.0 fL High 80-94 [facility] Comment on above: Performed By: #### L 100.0100, L500.2500 #### [facility] Laboratory [address] [place], [address] Monocytes/100 WBC (Bld) 0.9 % Normal 0-10 [facility] Comment on above: Performed By: #### L 100.0100, L500.2500 #### [facility] Laboratory [address] [place], [address] Neutrophils/100 WBC (Bld) 94.1 % High 47-70 [facility] Comment on above: Performed By: #### L 100.0100, L500.2500 #### [facility] Laboratory [address] [place], [address] Nucleated RBC (Bld) [#/Vol] 0 10*3/uL Normal 0-5 [facility] Comment on above: Performed By: #### L 100.0100, L500.2500 #### [facility] Laboratory [address] [place], [address] Platelet mean volume (Bld) [Entitic vol] 9.2 fL Normal 6.2-12.0 [facility] Comment on above: Performed By: #### L 100.0100, L500.2500 #### [facility] Laboratory [address] [place], [address] Platelets (Bld) [#/Vol] 242 10*3/uL Normal 150-450 [facility] Comment on above: Performed By: #### L 100.0100, L500.2500 #### [facility] Laboratory [address] [place], [address] RBC (Bld) [#/Vol] 4.38 10*6/uL Low 4.6-6.2 [facility] Comment on above: Performed By: #### L 100.0100, L500.2500 #### [facility] Laboratory [address] [place], [address] RDW SD 48.3 fl High 35.1-43.9 [facility] Comment on above: Performed By: #### L 100.0100, L500.2500 #### [facility] Laboratory [address] [place], [address] WBC (Bld) [#/Vol] 15.3 10*3/uL High 4.4-11.0 [facility] Comment on above: Performed By: #### L 100.0100, L500.2500 #### [facility] Laboratory [address] [place], [address] Consultation - Intensiviston 11-16-2024 Consultation - Pump Operator [facility] Medical Records Department [address] [place] [address] Consultation - Pump Operator 11/16/24 0849 MR#: [id number] Acct: [id number] Name: NANETTE MONROY Rep #: [id number] : 1945 79 From: Harsh Manzo DO PCP: Dr. Fernandez Baig DO Status:ADM IN Location: [place] [address] Assessment Plan Assessment/Plan (1) COPD exacerbation: PLAN: [...] noted above. This note was generated with [employer] dictation software. It may contain incorrect words, [...] admitted to the hospital for further management. 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, implants and grafts, initial encounter Nocturnal hypoxia Tobacco dependence in remission Chronic hypoxemic respiratory failure COPD (chronic obstructive pulmonary disease) Home Medications ???Medication ???Instructions ???Recorded ???Last Taken ???Type aspirin 81 mg tablet,delayed 81 mg PO DAILY@1999 heart [facility] 0 12/24/19 11/14/24 History release nitroglycerin 0.4 mg sublingual 0.4 mg sublingual Q5-15M PRN chest 03/22/22 Unknown Rx tablet pain #25 tabs Handicap Placcard #1 ea 07/29/22 Unknown Rx albuterol sulfate 2.5 mg/3 mL 2.5 mg (3 mL) inhalation Q4H #180 08/14/24 11/14/24 Rx (0.083 %) solution for nebulization mL albuterol sulfate 90 mcg/actuation 2 puff inhalation (more content not included)... Normal [facility] Echo Complete W/ Contraston 11-16-2024 Echo Complete W/ Contrast [facility] Cardiovascular Services [address] [place] [address] Echo Complete W/ Contrast 11/16/24 1025 MR#: [id number] Acct: [id number] Name: NANETTE MONROY Rep #: [id number] : 1945 79 From: Dario Bar MD [...] Dictated: 11/16/24 1025 Date Transcribed: 11/16/24 1146 Editorial Intern: Signed [facility] Echocardiogram study reportO rdered By: Dario Bar on 11-16-2024 Study report [facility] Cardiovascular Services [address] [place] [address] Echo Complete W/ Contrast 11/16/24 1025 MR#: [id number] Acct: [id number] Name: NANETTE MONROY Rep #:[id number] : 1945 79 From: Dario Bar MD Attending Dr: Dr. Rohan Henao MD Status: ADM IN Ordering Dr: Harsh Manzo DO Date: 04/04 Location: [facility] Sex: M C Admitted: 11/15/24 Reason For [...] Dictated: 11/16/24 1025 Date Transcribed: 11/16/24 1146 Editorial Intern: Signed [facility] Work Phone: Gram Stainon 11-16-2024 GS Acceptable Specimen? Yes (<25 Epithelial cells per/lpf) Gram Stain 4+ White Blood Cells 4+ Gram negative rods 4+ Gram positive rods 1+ Epithelial cells 1+ Gram positive cocci Normal [facility] Comment on above: Performed By: #### L 500.0369 #### [facility] Laboratory [address] [place], [address] L503.7505on 11-16-2024 Natriuretic peptide B (Bld) [Mass/Vol] 503 pg/mL Normal <=1800 [facility] Comment on above: Result Comment: Hear t Failure Unlikely: < 300 pg/mL Heart Failure Likely < 50 Years: > 450 pg/mL 50-75 Years: > 900 pg/mL >75 Years: > 1800 pg/mL Performed By: #### L 509.7001, L503.7505 #### [facility] Laboratory [address] [place], [place], [address] L509.7001on 11-16-2024 Procalcitonin 0.06 ng/mL Normal <=0.10 [facility] Comment on above: Result Comment: Inte rpretation: [...] Performed By: #### L 509.7001, L503.7505 #### [facility] Laboratory [address] [place], [place], [id number] Natriuretic peptide.B prohor bhavya N-Terminal [Mass/volume] in Serum or PlasmaOrdered By: Harsh Manzo on 11-16-2024 Natriuretic peptide.B prohormone N-Terminal [Mass/Vol] 503 pg/mL <1800 [facility] Comment on above: Heart Failure Unlike ly: < 300 pg/mLHeart Failure Likely< 50 Years: > 450 pg/mL50-75 Years: > 900 pg/mL>75 Years: > 1800 pg/mL Procalcitonin [Mass/volume] in Serum or Plasma by ImmunoassayOrdered By: Harsh Manzo on 11-16-2024 Procalcitonin IA [Mass/Vol] 0.06 ng/mL <0.11 [facility] Comment on above: Interpretation:<0.10 -0.25 ng/mL: Antibiotic [...] Auto (Unsp spec) [#/Vol] 1.35 10*3/uL 0.83-4.51 [facility] Absolute neutrophil countOrd ered By: Beau Costa on 11-15-2024 Neutrophils (Bld) [#/Vol] 17.3 10*3/uL High 2.0-7.7 [facility] Anion gap in Serum or Plasma Ordered By: Beau Costa on 11-15-2024 Anion gap [Moles/Vol] 12 mmol/L 5-15 [facility] Assessment of wrist artery p atency prior to arterial punctureOrdered By: Beau Costa on 11-15-2024 Arterial patency Wrist artery --pre arterial puncture Positive [facility] Automated lymphocyte count a s percentage of total leukocytesOrdered By: Beau Costa on 11-15-2024 Lymphocytes/100 WBC Auto (Unsp spec) 6.7 % Low 19-41 [facility] BUN/creatinine ratioOrdered By: Beau Cosat on 11-15-2024 Urea nitrogen/Creatinine [Mass ratio] 14.0 mg/mg - [facility] Basic Metabolic Profile (BMP )on 11-15-2024 BUN/CRE 14.0 RATIO Normal - [facility] Comment on above: Performed By: #### L 500.2500 #### [facility] Laboratory [address] [facility] [address] Calcium [Mass/Vol] 8.8 mg/dL Normal 7.6-11.0 [facility] Comment on above: Performed By: #### L 500.2500 #### [facility] Laboratory [address] [place], [address] Chloride [Moles/Vol] 102 mmol/L Normal 98-108 [facility] Comment on above: Performed By: #### L 500.2500 #### [facility] Laboratory [address] [place], [address] CO2 [Moles/Vol] 24.4 mmol/L Normal 21.0-32.0 [facility] Comment on above: Performed By: #### L 500.2500 #### [facility] Laboratory [address] [place], [address] Creatinine [Mass/Vol] 0.87 mg/dL Normal 0.70-1.20 [facility] Comment on above: Performed By: #### L 500.2500 #### [facility] Laboratory [address] [place], [address] GAP 12 Normal 5-15 [facility] Comment on above: Performed By: #### L 500.2500 #### [facility] Laboratory [address] [place], [address] GFR/1.73 sq M.predicted among non-blacks MDRD (S/P/Bld) [Vol rate/Area] 87 mL/min/{1.73_m2} Normal >60 [facility] Comment on above: Result Comment: mL/m in/1.73m2 CKD-EPI Creatinine Equation (2020) Performed By: #### L 500.2500 #### [facility] Laboratory [address] [place], [address] Glucose [Mass/Vol] 116 mg/dL High 70-99 [facility] Comment on above: Performed By: #### L 500.2500 #### [facility] [address] [place], [address] Potassium [Moles/Vol] 4.3 mmol/L Normal 3.3-5.1 [facility] Comment on above: Result Comment: Hemo lysis present, Results??could be affected. ?? Performed By: #### L 500.2500 #### [facility] [address] [place], [address] Sodium [Moles/Vol] 139 mmol/L Normal 133-145 [facility] Comment on above: Performed By: #### L 500.2500 #### [facility] [address] [place], [address] Urea nitrogen [Mass/Vol] 12 mg/dL Normal 4-19 [facility] Comment on above: Performed By: #### L 500.2500 #### [facility] [address] [place], [address] Basophil percentageOrdered B y: Beau Costa on 11-15-2024 Basophils/100 WBC (Bld) 0.2 % 0-1 [facility] Positive Normal [facility] Comment on above: Performed By: #### L 9000.0800 #### [facility] [address] [place], [address] Base excess Calc (Bld) [Moles/Vol] 2 mmol/L Normal -2 to +2 [facility] Comment on above: Performed By: #### L 9000.0800 #### [facility] [address] [place], [address] Blood Gas Type ART Normal [facility] Comment on above: Performed By: #### L 9000.0800 #### [facility] [address] [place], [address] CO2 [Moles/Vol] 28 mmol/L Normal [facility] Comment on above: Performed By: #### L 9000.0800 #### [facility] [address] [place], [address] FI02 5.0 Normal [facility] Comment on above: Performed By: #### L 9000.0800 #### [facility] [address] [place], [address] HCO3 (Bld) [Moles/Vol] 26.6 mmol/L High 22-26 [facility] Comment on above: Performed By: #### L 9000.0800 #### [facility] [address] [place], [address] Mode Not entered Normal [facility] Comment on above: Performed By: #### L 9000.0800 #### [facility] [address] [place], [address] O2 Delivery Dev Cannula Normal [facility] Comment on above: Performed By: #### L 9000.0800 #### [facility] [address] [place], [address] pCO2 39.9 mmHg Normal 35-45 [facility] Comment on above: Performed By: #### L 9000.0800 #### [facility] [address] [place], [address] pH (Bld) 7.43 [pH] Normal 7.35-7.45 [facility] Comment on above: Performed By: #### L 9000.0800 #### [facility] [address] [place], [address] PO2 86 mmHG Normal 75-100 [facility] Comment on above: Performed By: #### L 9000.0800 #### [facility] [address] [place], [address] SITE R Radial Normal [facility] Comment on above: Performed By: #### L 9000.0800 #### [facility] [address] [place], [address] SO2 97 Normal 95-99 [facility] Comment on above: Performed By: #### L 9000.0800 #### [facility] [address] [place], [address] Blood base excess determinat ionOrdered By: Beau Costa on 11-15-2024 Base excess Calc (BldV) [Moles/Vol] 2 mmol/L -2-2 [facility] Blood bicarbonate measuremen tOrdered By: Beau Costa on 11-15-2024 HCO3 (Bld) [Moles/Vol] 26.6 mmol/L High 22-26 [facility] CBC W/Diff, Automatedon 05-0 Absolute Lymph 1.35 X10 3/uL Normal 0.83-4.51 [facility] Comment on above: Performed By: #### L 500.2500 #### [facility] [address] [place], [address] Absolute Neut 17.3 X10 3/uL High 2.0-7.7 [facility] Comment on above: Performed By: #### L 500.2500 #### [facility] [address] [place], [address] Basophils/100 WBC (Bld) 0.2 % Normal 0-1 [facility] Comment on above: Performed By: #### L 500.2500 #### [facility] [address] [place], [address] Eosinophils/100 WBC (Bld) 0.2 % Normal 0-5 [facility] Comment on above: Performed By: #### L 500.2500 #### [facility] [address] [place], [address] Erythrocyte distribution width (RBC) [Ratio] 13.5 % Normal 11.6-14.6 [facility] Comment on above: Performed By: #### L 500.2500 #### [facility] [address] [place], [address] Hematocrit (Bld) [Volume fraction] 42.3 % Normal 40-54 [facility] Comment on above: Performed By: #### L 500.2500 #### [facility] [address] [place], [address] Hemoglobin (Bld) [Mass/Vol] 14.0 g/dL Normal 13.0-16.5 [facility] Comment on above: Performed By: #### L 500.2500 #### [facility] [address] [place], [address] IG% 0.400 Normal 0.0-0.9 [facility] Comment on above: Result Comment: IG% - Immature Granulocytes (promyelocytes, myelocytes and metamyelocytes) > 1% indicates that a LEFT SHIFT is Present. Performed By: #### L 500.2500 #### [facility] [address] [place], [address] Lymphocytes/100 WBC (Bld) 6.7 % Low 19-41 [facility] Comment on above: Performed By: #### L 500.2500 #### [facility] [address] [place], [address] MCH (RBC) [Entitic mass] 31.6 pg Normal 27.0-32.0 [facility] Comment on above: Performed By: #### L 500.2500 #### [facility] [address] [place], [address] MCHC (RBC) [Mass/Vol] 33.1 g/dL Normal 32-36 [facility] Comment on above: Performed By: #### L 500.2500 #### [facility] [address] [place], [address] MCV (RBC) [Entitic vol] 95.5 fL High 80-94 [facility] Comment on above: Performed By: #### L 500.2500 #### [facility] [address] [place], [address] Monocytes/100 WBC (Bld) 6.1 % Normal 0-10 [facility] Comment on above: Performed By: #### L 500.2500 #### [facility] [address] [place], [address] Neutrophils/100 WBC (Bld) 86.4 % High 47-70 [facility] Comment on above: Performed By: #### L 500.2500 #### [facility] [address] [place], [address] Nucleated RBC (Bld) [#/Vol] 0 10*3/uL Normal 0-5 [facility] Comment on above: Performed By: #### L 500.2500 #### [facility] [address] [place], [address] Platelet mean volume (Bld) [Entitic vol] 9.4 fL Normal 6.2-12.0 [facility] Comment on above: Performed By: #### L 500.2500 #### [facility] [address] [place], [address] Platelets (Bld) [#/Vol] 221 10*3/uL Normal 150-450 [facility] Comment on above: Performed By: #### L 500.2500 #### [facility] [address] [place], [address] RBC (Bld) [#/Vol] 4.43 10*6/uL Low 4.6-6.2 [facility] Comment on above: Performed By: #### L 500.2500 #### [facility] [address] [place], [address] RDW SD 47.7 fl High 35.1-43.9 [facility] Comment on above: Performed By: #### L 500.2500 #### [facility] [address] [place], [address] WBC (Bld) [#/Vol] 20.1 10*3/uL High 4.4-11.0 [facility] Comment on above: Performed By: #### L 500.2500 #### [facility] [address] [place], [address] CTA Chest W/WO Contraston CTA Chest W/WO Contrast [facility] Imaging Services [address] [place], [place] [address] CTA Chest W/WO Contrast MR#: [id number] Acct: [id number] Name: NANETTE MONROY Rep #: [id number] : 1945 M 79 From: Thom Montes MD PCP: Dr. Fernandez Baig, Status: REG ER Study: CTA Chest W/WO Contrast Date of Exam: 11/15/24 Exam# [id number] Ordering Dr: Beau Costa DO PROCEDURE: CTA [...] Fernandez Baig DO; Dr. Beau Costa DO Editorial Intern: Signed Normal [facility] Carbon dioxide, total [Moles /volume] in Central venous bloodOrdered By: Beau Costa on 11-15-2024 CO2 [Moles/Vol] 24.4 mmol/L 21.0-32.0 [facility] Chest PA and Lateralon 11-15 Chest PA and Lateral [facility] Imaging Services [address] [place] [id number] Chest PA and Lateral MR#: [id number] Acct: [id number] Name: NANETTE MONROY Rep #: [id number] : 1945 M 79 From: Thom Montes MD PCP: Dr. Fernandez Baig DO Status: [facility] Study: Chest PA and Lateral Date of Exam: 11/15/24 Exam# [id number] Ordering Dr: Beau Costa DO PROCEDURE: CHEST [...] Fernandez Baig DO; Dr. Beau Costa DO Editorial Intern: Signed Normal [facility] Chloride assayOrdered By: Rick Costa on 11-15-2024 Chloride [Moles/Vol] 102 mmol/L 98-108 [facility] D-Dimer Quantitative (DVT/PE )on 11-15-2024 D-DIMER QUANT 0.90 FEU/ug/m Invalid Interpretation Code 0.27-0.49 [facility] Comment on above: Result Comment: D-Di lenora ELEVATED (>0.49): Additional studies and clinical assessments are indicated to conclude diagnosis of: Deep Vein Thrombosis (DVT) or Pulmonary Embolism (PE) CRITICAL VALUE CALLED TO ALTAGRACIA 11/15/24 1101 Bree Simental. RESULTS READ BACK BY SAME. Performed By: #### L 500.2500 #### [facility] [address] [place], [address] Emergency Department Summary on 11-15-2024 Emergency Department Summary [facility] Medical Records Department [address] [place] [address] Emergency Department Summary 11/15/24 MR#: [id number] Acct: [id number] Name: NANETTE MONROY Rep #: [id number] : 1945 79 From: Beau Lane PCP: [...] or Recent travel Prior similar symptoms: [facility] Medical History Old myocardial infarction Claudication, intermittent Premature ventricular contraction Hyperlipidemia Ischemic cardiomyopathy Atherosclerotic heart disease of [place] coronary artery without angina pectoris Displacement of [...] Denies dys (more content not included)... Normal [facility] Eosinophil percentageOrdered By: Beau Costa on 11-15-2024 Eosinophils/100 WBC (Bld) 0.2 % 0-5 [facility] Erythrocyte distribution wid th ratioOrdered By: Beau Costa on 11-15-2024 Erythrocyte distribution width (RBC) [Ratio] 13.5 % 11.6-14.6 [facility] Erythrocyte distribution wid th standard deviationOrdered By: Beau Costa on 11-15-2024 Erythrocyte distribution width (RBC) [Ratio] 47.7 fl High 35.1-43.9 [facility] Glomerular filtration rate ( GFR) estimation/1.73 sq m using serum, plasma, or whole bOrdered By: Beau Costa on 11-15-2024 GFR/1.73 sq M.predicted among non-blacks MDRD (S/P/Bld) [Vol rate/Area] 87 mL/min/{1.73_m2} >60 [facility] Comment on above: mL/min/1.73m2 CKD-EP I Creatinine Equation (2020) Gram stainOrdered By: Wilfredo Henao on 11-15-2024 Microscopic observation Gram stain Nom (Unsp spec) [facility] H AND P Exam - Hospitaliston 11-15-2024 H&P Exam - Hospitalist [facility] Medical Records Department [address] [place] [address] H P Exam - Hospitalist 11/15/24 1345 MR#: [id number] Acct: [id number] Name: NANETTE MONROY Rep #: [id number] : 1945 79 From: Rohan Henao MD PCP: Dr. Fernandez Baig, DO Status:ADM IN Location: [facility] [id number] HPI - General General Date of Admission: [...] was done and is discussed assessment plan. [facility] Medical History Old myocardial infarction Claudication, intermittent Premature ventricular contraction Hyperlipidemia Ischemic cardiomyopathy Atherosclerotic heart disease of [place] coronary artery without angina pectoris Displacement of [...] injury Neurologic (more content not included)... Normal [facility] Hematocrit Auto (Bld) [Volum e fraction]Ordered By: Beau Costa on 11-15-2024 Hematocrit (Bld) [Volume fraction] 42.3 % 40-54 [facility] Hemoglobin measurementOrdere d By: Beau Costa on 11-15-2024 Hemoglobin (Bld) [Mass/Vol] 14.0 g/dL 13.0-16.5 [facility] Immature granulocytes/100 WB C Auto (Bld)Ordered By: Beau Costa on 11-15-2024 Immature granulocytes/100 WBC (Bld) 0.400 % 0.0-0.9 [facility] Comment on above: IG% - Immature Granu locytes (promyelocytes, myelocytes and metamyelocytes) > 1% indicates that a LEFT SHIFT is Present. L499.0042on 11-15-2024 Trop T High Sen 21 ng/L Normal <=22 [facility] Comment on above: Performed By: #### L 500.2500 #### [facility] [address] [place], [address] L499.0043on 11-15-2024 Trop T High Sen 20 ng/L Normal <=22 [facility] Comment on above: Performed By: #### L 499.0043 #### [facility] [address] [place], [address] L501.4021on 11-15-2024 Trop T High Sen 25 ng/L High <=22 [facility] Comment on above: Performed By: #### L 509.7001, L503.2195 #### [facility] [address] [place], [address] Legionella Antigen Urineon 0 11-15-2024 LEGU Comments: Only Recommended for severe cases of pneumonia Only Recommended for severe cases of pneumonia URINE, CLEAN CATCH Legionella Antigen result interpretation: L pneumo Ag Ur Ql Negative Presumptive negative for Legionella pneumophila serogroup 1 antigen in urine, suggesting no recent or current infection. Legionella Ag, Urine Negative (See interpretation below) Normal [facility] Comment on above: Performed By: #### L 509.7001, L503.7505 #### [facility] [address] [place], [place], [address] M100.019on 11-15-2024 M100.019 Negative Normal [facility] Comment on above: Performed By: #### L 500.2500 #### [facility] [address] [place], [address] MCV (mean corpuscular volume ) determinationOrdered By: Beau Costa on 11-15-2024 MCV (RBC) [Entitic vol] 95.5 fL High 80-94 [facility] Magnesiumon 11-15-2024 Magnesium [Mass/Vol] 2.1 mg/dL Normal 1.5-2.2 [facility] Comment on above: Performed By: #### L 501.5200 #### [facility] [address] [place], [place], [address] Magnesium measurement (mass/ volume)Ordered By: Rohan Henao on 11-15-2024 Magnesium (Unsp spec) [Mass/Vol] 2.1 mg/dL 1.5-2.2 [facility] Mean corpuscular hemoglobin (MCH) determinationOrdered By: Beau Costa on 11-15-2024 MCH (RBC) [Entitic mass] 31.6 pg 27.0-32.0 [facility] Mean corpuscular hemoglobin concentration (MCHC) determinationOrdered By: Beau Costa on 11-15-2024 MCHC (RBC) [Mass/Vol] 33.1 g/dL 32-36 [facility] Mean platelet volume determi nationOrdered By: eBau Costa on 11-15-2024 Platelet mean volume (Bld) [Entitic vol] 9.4 fL 6.2-12.0 [facility] Measurement, pHOrdered By: Shahid Costa on 11-15-2024 pH (Unsp spec) 7.43 [pH] 7.35-7.45 [facility] Microbial respiratory cultur eOrdered By: Rohan Henao on 11-15-2024 Microorganism identified Cx Nom (Unsp spec) Streptococcus pneumoniae Abnormal [facility] Microorganism identified Cx Nom (Unsp spec) Pseudomonas aeruginosa Abnormal [facility] Monocyte percentageOrdered B y: Beau Costa on 11-15-2024 Monocytes/100 WBC (Bld) 6.1 % 0-10 [facility] Neutrophil percentageOrdered By: Beau Costa on 11-15-2024 Neutrophils/100 WBC (Bld) 86.4 % High 47-70 [facility] No Panel InformationOrdered By: Beau Costa on 11-15-2024 Blood Gas Sample Site R Radial [facility] Blood Gas Specimen Type ART [facility] Blood Gas Vent Mode Not entered [facility] Oxygen Delivery Device Cannula [facility] Nucleated red blood cell per centageOrdered By: Beau Costa on 11-15-2024 Nucleated RBC/100 WBC (Bld) [Ratio] 0 % 0-5 [facility] Platelet countOrdered By: Rick Costa on 11-15-2024 Platelets (Bld) [#/Vol] 221 10*3/uL 150-450 [facility] Potassium measurement (mass/ volume)Ordered By: Beau Costa on 11-15-2024 Potassium (Unsp spec) [Mass/Vol] 4.3 mmol/L 3.3-5.1 [facility] Comment on above: Hemolysis present, R esults could be affected. RBC Auto (Bld) [#/Vol]Ordere d By: Beau Costa on 11-15-2024 RBC (Bld) [#/Vol] 4.43 10*6/uL Low 4.6-6.2 [facility] RESPIRATORY PANEL MOLECULARo n 11-15-2024 RP PANEL ADENOVIRUS Not Detected INFLUENZA A Not Detected INFLUENZA A (SUBTYPE H1) Not Detected INFLUENZA A (SUBTYPE H3) Not Detected INFLUENZA B Not Detected HUMAN METAPHNEUMO Not Detected PARAINFLUENZA 1 Not Detected PARAINFLUENZA 2 Not Detected PARAINFLUENZA 3 Not Detected PARAINFLUENZA 4 Not Detected RHINOVIRUS Not Detected RSV A Not Detected RSV B Not Detected Normal [facility] Comment on above: Performed By: #### L 509.7001, L503.7505 #### [facility] [place], [address] Respiratory pathogens detect ion panel by molecular detection methodOrdered By: Rohan Henao on 11-15-2024 Respiratory pathogens DNA and RNA panel MELY+probe (Resp) [facility] [id number] By: Wilfredo Henao on 11-15-2024 SARS-CoV-2 (COVID-19) RNA MELY+probe Ql (Unsp spec) [facility] Serum creatinine measurement (mass/volume)Ordered By: Beau Costa on 11-15-2024 Creatinine [Mass/Vol] 0.87 mg/dL 0.70-1.20 [facility] Serum glucose measurement (m ass/volume)Ordered By: Beau Costa on 11-15-2024 Glucose [Mass/Vol] 116 mg/dL High 70-99 [facility] Serum or plasma calcium todd urement (mass/volume)Ordered By: Beau Costa on 11-15-2024 Calcium [Mass/Vol] 8.8 mg/dL 7.6-11.0 [facility] Serum or plasma urea nitroge n measurement (mass/volume)Ordered By: Beau Costa on 11-15-2024 Urea nitrogen [Mass/Vol] 12 mg/dL 4-19 [facility] Sodium levelOrdered By: Beau Costa on 11-15-2024 Sodium [Moles/Vol] 139 mmol/L 133-145 [facility] Strep pneumoniae Antig(UR,CS F)on 11-15-2024 [...] Test Negative URINE (See interpretation below) Normal [facility] Comment on above: Performed By: #### L 509.7001, L503.7505 #### [facility] [place], [address] Total carbon dioxide measure mentOrdered By: Beau Costa on 11-15-2024 CO2 [Moles/Vol] 28 mmol/L [facility] Troponin T.cardiac [Mass/vol ume] in Serum or Plasma by High sensitivity methodOrdered By: Beau Costa on 11-15-2024 Troponin T.cardiac High sensitivity method [Mass/Vol] 20 ng/L <22 [facility] Troponin T.cardiac High sensitivity method [Mass/Vol] 21 ng/L <22 [facility] Troponin T.cardiac High sensitivity method [Mass/Vol] 25 ng/L High <22 [facility] Urine Legionella pneumophila antigen detectionOrdered By: Rohan Henao on 11-15-2024 L. pneumophila Ag Ql (U) [facility] White blood cell (WBC) count Ordered By: Beau Costa on 11-15-2024 WBC (Bld) [#/Vol] 20.1 10*3/uL High 4.4-11.0 [facility] CNOVon 10-26-2024 CNOV Office Visit (ESTEFANÍA) ---- NANETTE MONROY ([id number]) 1945 M Date Time Provider Department 10/26/24 2:30 PM ANASTASIYA FINK During your visit today, we recorded the following information about you: Anastasiya Fink AUD 10/31/2024 12:13 PM Signed [facility] [place] [facility] COCHLEAR IMPLANT ADULT PROGRAMMING Name: Nanette Monroy [facility]#: [id number] Date of Service: October 26, 2024 Date of : 1945 Age: [age] year old COCHLEAR IMPLANT INFORMATION (see below for all device details) RIGHT ear: External Processor: [employer] [id number] (N7) External Processor [employer] Nucleus 7 (Upgraded Sep 2021) Processor SN [id number] Magnet Strength 1M Internal Device Cochlear CI 512 Inactive electrodes E6-7 Surgery Date March 2016 Initial activation date May [address] Fox LEFT ear: Resound Nexia 960S-DRWC SN: [id number] with 1xMP and med power dome Fit and managed at an outside facility ([employer]) Wireless Accessory Set up Fee Paid: No HISTORY: Mr. Monroy was seen today to link his hearing aid in the Cochlear programming software upon return from search engineer repair. Mr. Monroy reported the search engineer sent a new hearing aid with a [...] Cochlear's software. Hearing aid was connected to [employer] software to ensure hearing aid had been programmed with most recent version of [employer]'s software. 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 Additionally, while attempting to pair hearing aid and processor to patient's phone, both devices showed connected in [employer] mary, but streaming was only to the [...] Jacqueline Aceves BA Doctor of Audiology ([place]) Household Appliance Repairer [place], [facility] Clinical and Hearing Implant Education Professor Allergies As of Date: 10/26/2024 (Not on File) Date Reviewed: Never Reviewed Reason for Visit: Hearing Loss [1119] Problem With Cochlear Implant(s) [1123] Primary Visit Diagnosis:Sensorine ural hearing loss (SNHL) of both ears [H90.3] Other Visit Diagnosis:Cochlear implant in place [Z96.21] Problem List As Of Date: 10/26/2024 (None) Encounter Status:Closed by ANASTASIYA FINK on 10/31/[address] [facility] Telephone (HNQ) ---- NANETTE MONROY ([id number]) 1945 M Date Time Provider Department 10/18/24 MATHEW GUDINO HNQ During your visit today, we recorded the following information about you: Mathew Gudino 10/18/2024 11:32 AM Signed Need to connect new THAYER to CI and get connected to phone. Got a repaired THAYER device. 10/26 2:30 opening TW Mathew Gudino Hearing Implant Bobbin Winder Tender [email or web address] Allergies As of Date: 10/18/2024 (Not on File) Date Reviewed: Never Reviewed Problem List As Of Date: 10/18/2024 (None) Encounter Status:Closed by MATHEW GUDINO on 10/18/[address] [facility] Pulmonary Visit Reporton Pulmonary Visit Report [facility] [place] [address] [place] [address] OFFICE VISIT Date of Service: 09/12/24 MR#: [id number] Acct: [id number] Name: NANETTE MONROY Rep #: [id number] : 1945 Provider: MIKAEL Bethea Age/Sex: 79/M [place] [facility] Status: Signed Assessment and Plan Assessment and [...] 1 M F/U Chief Complaint: f/u COPD Family Dentist Required: No DME Vendor: Maya Accompanied by: [...] DAILY #45 (more content not included)... Normal [facility] Cardiology Visit Reporton Cardiology Visit Report [facility] [address] [place] [address] OFFICE VISIT Date of Service: 09/11/24 MR#: [id number] Acct: [id number] Name: NANETTE MONROY Rep #: [id number] : 1945 Provider: MIKAEL ravi Age/Sex: 79/M Location: [facility] Status: Signed HPI HPI History of [...] 5 Intake Visit Reasons: 1 Y FU Family Dentist Required: No Is patient in pain?: No [...] No Nurse's Note: Needs refills sent to [facility] for losartan and isosorbide [facility] Medical History Old myocardial infarction Claudication, intermittent Premature ventricular contraction Hyperlipidemia Ischemic cardiomyopathy 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 Normal [facility] Pulmonary Visit Reporton Pulmonary Visit Report [facility] [place] [address] [place] [address] OFFICE VISIT Date of Service: 08/14/24 MR#: [id number] Acct: [id number] Name: NANETTE MONROY Rep #: [id number] : 1945 Provider: MIKAEL Bethea Age/Sex: 79/M [place] [facility] Status: Signed Assessment and Plan Assessment and [...] Details Follow Up: 1 Month ([facility]) HPI 6 M FU Chief Complaint: [...] 6 M FU Chief Complaint: f/u COPD Family Dentist Required: No DME Vendor: [employer] Accompanied [...] Handicap Plac (more content not included)... Normal [facility] .Auto Diffon 07-16-2024 Basophil, Absolute 0.1 10 3/mcL Normal 0.0-0.2 [facility] Comment on above: Performed By: #### L IPID, CBC, ADIFF, ANEU, PSA #### [address] [address] Basophils/100 WBC (Bld) 0.7 % Normal 0.0-2.5 [facility] Comment on above: Performed By: #### L IPID, CBC, ADIFF, ANEU, PSA #### [address] [address] Eosinophil, Absolute 0.1 10 3/mcL Normal 0.0-0.7 [facility] Comment on above: Performed By: #### L IPID, CBC, ADIFF, ANEU, PSA #### [address] [address] Eosinophils/100 WBC (Bld) 1.4 % Normal 0.0-7.0 [facility] Comment on above: Performed By: #### L IPID, CBC, ADIFF, ANEU, PSA #### [address] [address] Lymphocyte, Absolute 1.2 10 3/mcL Normal 0.9-4.3 [facility] Comment on above: Performed By: #### L IPID, CBC, ADIFF, ANEU, PSA #### [address] [address] Lymphocytes/100 WBC (Bld) 12.6 % Low 20.0-40.0 [facility] Comment on above: Performed By: #### L IPID, CBC, ADIFF, ANEU, PSA #### [address] [address] Monocyte, Absolute 0.7 10 3/mcL Normal 0.1-1.4 [facility] Comment on above: Performed By: #### L IPID, CBC, ADIFF, ANEU, PSA #### [address] [address] Monocytes/100 WBC (Bld) 7.7 % Normal 2.0-13.0 [facility] Comment on above: Performed By: #### L IPID, CBC, ADIFF, ANEU, PSA #### [address] [address] Neutrophils/100 WBC (Bld) 77.6 % High 50.0-75.0 [facility] Comment on above: Performed By: #### L IPID, CBC, ADIFF, ANEU, PSA #### [address] [address] .GFRon 07-16-2024 GFR 81 ml/min/1.73sqm Normal [facility] Comment on above: Result Comment: GFR Population [...] Performed By: #### C MP, GFR #### [address] [address] GFR Non- 66 ml/min/1.73sqm Normal [facility] Comment on above: Result Comment: GFR Population [...] Performed By: #### C MP, GFR #### [place] [address] .NEUABSon 07-16-2024 Neutrophil, Absolute 7.2 10 3/mcL Normal 2.3-8.1 [facility] Comment on above: Performed By: #### L IPID, CBC, ADIFF, ANEU, PSA #### [place] [address] CBCon 07-16-2024 Erythrocyte distribution width (RBC) [Ratio] 13.7 % Normal 11.5-15.5 [facility] Comment on above: Performed By: #### L IPID, CBC, ADIFF, ANEU, PSA #### [place] [address] Hematocrit (Bld) [Volume fraction] 43.3 % Normal 40.0-52.0 [facility] Comment on above: Performed By: #### L IPID, CBC, ADIFF, ANEU, PSA #### [place] [address] Hgb 14.4 G/dL Normal 13.0-17.5 [facility] Comment on above: Performed By: #### L IPID, CBC, ADIFF, ANEU, PSA #### [place] [id number] MCH (RBC) [Entitic mass] 31.5 pg Normal 27.0-33.0 [facility] Comment on above: Performed By: #### L IPID, CBC, ADIFF, ANEU, PSA #### [address] [address] MCHC 33.3 G/dL Normal 32.0-36.0 [facility] Comment on above: Performed By: #### L IPID, CBC, ADIFF, ANEU, PSA #### [address] [address] MCV (RBC) [Entitic vol] 94.6 fL Normal 81.0-100.0 [facility] Comment on above: Performed By: #### L IPID, CBC, ADIFF, ANEU, PSA #### [address] [address] Platelet 234 10 3/mcL Normal 150-450 [facility] Comment on above: Performed By: #### L IPID, CBC, ADIFF, ANEU, PSA #### [address] [address] Platelet mean volume (Bld) [Entitic vol] 8.0 fL Normal 6.4-10.5 [facility] Comment on above: Performed By: #### L IPID, CBC, ADIFF, ANEU, PSA #### [address] [address] RBC 4.58 10 6/mcL Normal 4.50-6.00 [facility] Comment on above: Performed By: #### L IPID, CBC, ADIFF, ANEU, PSA #### [address] [address] WBC 9.2 10 3/mcL Normal 4.5-10.8 [facility] Comment on above: Performed By: #### L IPID, CBC, ADIFF, ANEU, PSA #### [address] [address] CMPon 07-16-2024 Albumin Level 3.3 G/dL Low 3.4-4.8 [facility] Comment on above: Performed By: #### C MP, GFR #### [place] [id number] Albumin/Globulin [Mass ratio] 0.9 {ratio} Low 1.1-2.5 [facility] Comment on above: Performed By: #### C MP, GFR #### [address] [address] ALP [Catalytic activity/Vol] 105 U/L Normal 40-135 [facility] Comment on above: Performed By: #### C MP, GFR #### [address] [address] ALT [Catalytic activity/Vol] 17 U/L Normal 16-63 [facility] Comment on above: Performed By: #### C MP, GFR #### [address] [address] AST [Catalytic activity/Vol] 18 U/L Normal 10-40 [facility] Comment on above: Performed By: #### C MP, GFR #### [address] [address] Bili Total 0.5 mg/dL Normal 0.2-1.0 [facility] Comment on above: Result Comment: Use of this assay is not recommended for patients undergoing treatment with eltrombopag due to the potential for falsely elevated results. Performed By: #### C MP, GFR #### [address] [address] BUN/Creatinine Ratio 10 ratio Normal 7-27 [facility] Comment on above: Performed By: #### C MP, GFR #### [address] [address] Calcium [Mass/Vol] 8.9 mg/dL Normal 8.4-10.2 [facility] Comment on above: Performed By: #### C MP, GFR #### [address] [address] Chloride [Moles/Vol] 106 mmol/L Normal 98-107 [facility] Comment on above: Performed By: #### C MP, GFR #### [address] [address] CO2 [Moles/Vol] 27 mmol/L Normal 23-31 [facility] Comment on above: Performed By: #### C MP, GFR #### [address] [address] Creatinine [Mass/Vol] 1.07 mg/dL Normal 0.70-1.30 [facility] Comment on above: Result Comment: Test ing performed on Siemens Dimension EXL analyzer using a modified kinetic Dorothy technique. Performed By: #### C MP, GFR #### [address] [address] Electrolyte Balance 10.0 mEq/L Normal 4.0-15.0 [place] Comment on above: Performed By: #### C MP, GFR #### [place] [address] Globulin 3.7 G/dL Normal [facility] Comment on above: Performed By: #### C MP, GFR #### [place] [address] Glucose [Mass/Vol] 105 mg/dL Normal 83-110 [facility] Comment on above: Performed By: #### C MP, GFR #### [address] [address] Potassium [Moles/Vol] 4.8 mmol/L Normal 3.5-5.1 [facility] Comment on above: Performed By: #### C MP, GFR #### [address] [address] Sodium [Moles/Vol] 143 mmol/L Normal 136-145 [facility] Comment on above: Performed By: #### C MP, GFR #### [address] [address] Total Protein 7.0 G/dL Normal 6.4-8.2 [facility] Comment on above: Performed By: #### C MP, GFR #### [address] [address] Urea nitrogen [Mass/Vol] 11 mg/dL Normal 7-18 [facility] Comment on above: Performed By: #### C MP, GFR #### [address] [address] LIPIDon 07-16-2024 Cholesterol [Mass/Vol] 138 mg/dL Normal 0-200 [facility] Comment on above: Result Comment: Chol esterol Reference Interval: Less than 200 Desirable 200-239 Borderline high risk 240 and above High risk Performed By: #### L IPID, CBC, ADIFF, ANEU, PSA #### [address] [address] Cholesterol in HDL [Mass/Vol] 64 mg/dL High 40-60 [facility] Comment on above: Performed By: #### L IPID, CBC, ADIFF, ANEU, PSA #### [address] [address] Cholesterol in LDL [Mass/Vol] 65 mg/dL Normal 0-130 [facility] Comment on above: Performed By: #### L IPID, CBC, ADIFF, ANEU, PSA #### [address] [address] Triglyceride [Mass/Vol] 44 mg/dL Normal 0-150 [facility] Comment on above: Result Comment: Trig lyceride Reference Interval: Less than 150 Normal 150-199 Borderline high risk 200-499 High risk 500 or higher Very high risk Performed By: #### L IPID, CBC, ADIFF, ANEU, PSA #### [address] [address] PSAon 07-16-2024 Prostate Specific Antigen 0.84 ng/mL Normal 0.00-4.00 [facility] Comment on above: Performed By: #### L IPID, CBC, ADIFF, ANEU, PSA #### [address] [address] CNPNgozi 06-20-2024 CNPN Telephone ([facility]) ---- NANETTE MONROY ([id number]) 1945 M Date Time Provider Department 06/20/24 MATHEW GUDINO HNQ During your visit today, we recorded the following information about you: Mahtew Gudino 06/20/2024 3:03 PM Signed Trying to [...] and call back. Mathew Gudino Hearing Implant Bobbin Winder Tender Mathew Gudino 06/20/2024 4:12 PM Signed The mary for the hearing aid is frozen when you go in to use it. He used to be able to adjust different settings. If he puts the THAYER back in the gas compressor operator and bring it back then he gets it back but then as soon as he turns it off then he loses it again. Working right now, is able to stream to both ears. I will check in tomorrow and see if it resolves once the hearing aid has charged all night. Mahtew Gudino Hearing Implant Bobbin Winder Tender Mathew Gudino 06/21/2024 4:39 PM Signed Followed up to see if Nanette was able to resolve concerns. NO further issues Mathew Gudino Hearing Implant Bobbin Winder Tender Allergies As of Date: 06/20/2024 (Not on File) Date Reviewed: Never Reviewed Reason for Visit: Patient Question [9257] Problem List As Of Date: 06/20/2024 (None) Encounter Status:Closed by MATHEW GUDINO on 06/21/[address] [facility] Samy 06-19-2024 CNOV Office Visit (CRISTINE) ---- NANETTE MONROY ([id number]) 1945 M Date Time Provider Department 06/19/24 10:30 AM ANASTASIYA FINK During your visit today, we recorded the following information about you: Anastasiya Fink AUD 06/26/2024 10:36 PM Signed [facility] [place] [facility] COCHLEAR IMPLANT ADULT PROGRAMMING Name: Nanette Monroy [facility]#:[id number] Date of Service: 06/19/2024 Date of : 1945 Age: [age] year old COCHLEAR IMPLANT INFORMATION (see below for all device details) RIGHT ear: External Processor: Cochlear [employer] [id number] (N7) External Processor Cochle[employer] Nucleus 7 (Upgraded Sep 2021) Processor SN [id number] Magnet Strength 1M Internal Device Cochlear CI 512 Inactive electrodes E6-7 Surgery Date March 2016 Initial activation date May [address] Fox LEFT ear: Resound Nexia 960S-DRWC SN: [id number] with 1xMP and mcTEL dome Fit and managed at an outside facility ([employer]) Wireless Accessory Set up Fee Paid: No [...] his managing ENT instead of establishing with [facility] ENT * Feels he hears better with his new hearing aid. Would like to have this managed at [facility] AIDED AUDIOMETRIC TESTING: Audiologic testing was completed in the sound field with the speech processor(s) at user settings (Program: 1; Volume: 6; Sensitivity: 12.) before programming. See the Channel Intellect Audiogram for obtained thresholds. Speech perception testing was completed at 60 convertible power shovel operator using recorded stimuli in the sound field at 0 degrees azimuth. NOTE: The contralateral ear was plugged and muffed or masked during testing. The following testing and results were obtained: Gelgnxjap-Zyszjru-A onsonant Words (CNC) Test Condition List # [...] 35 dB HL from 250-500 Hz and 0901-5228 Hz. Baseline speech measures obtained today demonstrate [...] Cochlear fo (more content not included)... Normal [facility] HEARING IMPLANTABLE DEVICES (E.G. COCHLEAR IMPLANTS (CI), BONE ANCHORED (SABINO), SENSORY DEVICES)on 06-19-2024 [facility] CNPNon 04-16-2024 CNPN Telephone (HNQ) ---- NANETTE MONROY ([id number]) 1945 M Date Time Provider Department 04/16/24 MATHEW GUDINO HNQ During your visit today, we recorded the following information about you: Mathew Gudino 04/16/2024 4:11 PM Signed Fit with THAYER- Phonak, recommended Nexia from [employer]. Ordered a demo for him to try. Coming in to fit with demo. Questions about phone pairing to hearing aid THAYER through- has to May 21 to do exchange [place] Allergies As of Date: 04/16/2024 (Not on File) Date Reviewed: Never Reviewed Problem List As Of Date: 04/16/2024 (None) Encounter Status:Closed by MATHEW GUDINO on 04/16/[address] [facility] CNOVon 04-03-2024 CNOV Office Visit (CRISTINE) ---- NANETTE MONROY ([id number]) 1945 M Date Time Provider Department 04/03/24 10:30 AM ANASTASIYA FINK During your visit today, we recorded the following information about you: Anastasiya Fink AUD 04/03/2024 12:58 PM Signed [facility] [place] [facility] COCHLEAR IMPLANT ADULT PROGRAMMING Name: Nanette Monroy [facility]#: [id number] Date of Service: April 03, 2024 Date of : 1945 Age: [age] year old COCHLEAR IMPLANT INFORMATION (see below for all device details) Updated: April 03, 2024 RIGHT ear: External Processor: Cochlear [employer] [id number] (N7) External Processor Cochle[employer] Nucleus 7 (Upgraded Sep 2021) Processor SN [id number] Magnet Strength 1M Internal Device Cochlear CI 512 Inactive electrodes E6-7 Surgery Date March 2016 Initial activation date May [address] Fox LEFT ear: Phonak Audeo L90-RL with 2M medical associate and med vented dome Fit and managed at an outside facility ([facility]) Wireless Accessory Set up Fee Paid: No [...] Cochlear and they recommended he schedule with [facility] * Recently dropped processor and [...] ear (a few weeks ago), managed at [facility] in [place] Education Professor there told him she did not want to make too many changes to his hearing aid programming until he had his implant reprogrammed * Has not been hearing well on the phone when using Bluetooth streaming to left hearing aid * Reported he received some insurance coverage ([facility] AARP supplement) towards his hearing aid, but [...] or One. Recommend patient return to fitting gravel inspector to determine if hearing aid can be exchanged for a Resound device. If that clinic unable to work with Resound, offered for patient to return to [facility] for fitting of a Resound [...] Technologies: Th (more content not included)... Normal [facility] Pulmonary Visit Reporton Pulmonary Visit Report [facility] [place] [address] [place], [place] [id number] OFFICE VISIT Date of Service: 02/02/24 MR#: [id number] Acct: [id number] Name: NANETTE MONROY Rep #: [id number] : 1945 Provider: MIKAEL Bethea Age/Sex: 78/M [place] [facility] Status: Signed Assessment and Plan Assessment and [...] Details Follow Up: 6 Months ([facility]) HPI 6 M FU Chief Complaint: [...] 6 M FU Chief Complaint: f/u COPD Family Dentist Required: No DME Vendor: [employer] Accompanied by: [...] year?: No (more content not included)... Normal [facility] Basophil percentageOrdered B y: Wilberto Tillman on 10-24-2023 Bilirubin [Mass/Vol] 0.40 mg/dL 0.20-1.00 [facility] Comment on above: For patients on eltr ombopag therapy, use of Dimension [facility] TBIL is not recommended. Cholesterol [Mass/Vol] 120 mg/dL <200 [facility] Comment on above: <200 mg/dL Desirable 200-240 mg/dL Borderline >240 mg/dL High Risk Protein [Mass/Vol] 7.4 g/dL 6.4-8.2 [facility] Triglyceride [Mass/Vol] 48 mg/dL <199 [facility] Comment on above: The drugs N-Acetylcy steine and Metamizole may falsely depress this assay.Serum Triglycerides Reference Interval Normal <150 mg/dL Borderline high 150 - 199 mg/dL High 200 - 499 mg/dL Very High > or = 500 mg/dL Direct bilirubinOrdered By: Wilberto Tillman on 10-24-2023 Bilirubin.direct [Mass/Vol] 0.15 mg/dL 0.00-0.30 [facility] Laboratory - Chemistry and C hemistry - challengeOrdered By: Wilberto Tillman on 10-24-2023 ALP [Catalytic activity/Vol] 89 U/L 45-117 [facility] ALT [Catalytic activity/Vol] 15 U/L 16-61 [facility] Cholesterol in HDL [Mass/Vol] 52 mg/dL >40 [facility] Comment on above: The drugs N-Acetylcy steine and Metamizole may falsely depress this assay. Reference Range HDL <40 mg/dL Low HDL Cholesterol HDL >or= 60 mg/dL High HDL Cholesterol Cholesterol in LDL [Mass/Vol] 58 mg/dL 0-130 [facility] Globulin (S) [Mass/Vol] 4.1 g/dL 2.2-4.2 [facility] No Panel InformationOrdered By: Wilberto Tillman on 10-24-2023 VLDL Cholesterol 10 mg/dL 5-40 [facility] Thin prep Papanicolaou smear with manual screeningOrdered By: Wilberto Tillman on 10-24-2023 Thin prep Papanicolaou smear with manual screening 3.3 g/dL 3.2-5.0 [facility] Thin prep Papanicolaou smear with manual screening 16 U/L 15-37 [facility] .Auto Diffon 07-07-2023 Basophil, Absolute 0.1 10 3/mcL Normal 0.0-0.3 [facility] ([place]) Comment on above: Performed By: #### A NICO, LIPID, ADIFF, GFR, CBC, PSA, CMP #### [address] [address] Basophils/100 WBC (Bld) 0.7 % Normal 0.0-2.5 A [facility] ([place]) Comment on above: Performed By: #### A NICO, LIPID, ADIFF, GFR, CBC, PSA, CMP #### [address] [address] Eosinophil, Absolute 0.2 10 3/mcL Normal 0.0-0.7 [facility] ([place]) Comment on above: Performed By: #### A NICO, LIPID, ADIFF, GFR, CBC, PSA, CMP #### [address] [address] Eosinophils/100 WBC (Bld) 1.9 % Normal 0.0-6.0 [facility] ([place]) Comment on above: Performed By: #### A NICO, LIPID, ADIFF, GFR, CBC, PSA, CMP #### [address] [address] Lymphocyte, Absolute 1.1 10 3/mcL Normal 0.9-4.3 [facility] ([place]) Comment on above: Performed By: #### A NICO, LIPID, ADIFF, GFR, CBC, PSA, CMP #### [address] [address] Lymphocytes/100 WBC (Bld) 11.7 % Low 20.0-40.0 [facility] ([place]) Comment on above: Performed By: #### A NICO, LIPID, ADIFF, GFR, CBC, PSA, CMP #### [address] [address] Monocyte, Absolute 0.8 10 3/mcL Normal 0.1-1.4 [facility] ([place]) Comment on above: Performed By: #### A NICO, LIPID, ADIFF, GFR, CBC, PSA, CMP #### [address] [address] Monocytes/100 WBC (Bld) 9.1 % Normal 2.0-13.0 A [facility] ([place]) Comment on above: Performed By: #### A NICO, LIPID, ADIFF, GFR, CBC, PSA, CMP #### [address] [address] Neutrophils/100 WBC (Bld) 76.6 % High 50.0-75.0 [facility] ([place]) Comment on above: Performed By: #### A NICO, LIPID, ADIFF, GFR, CBC, PSA, CMP #### [address] [address] .GFRon 07-07-2023 GFR >60 Normal [facility] ([place]) Comment on above: Result Comment: GFR Population [...] LIPID, ADIFF, GFR, CBC, PSA, CMP #### [address] [address] GFR Non- >60 Normal [facility] ([place]) Comment on above: Result Comment: GFR Population [...] LIPID, ADIFF, GFR, CBC, PSA, CMP #### [address] [address] .NEUABSon 07-07-2023 Neutrophil, Absolute 7.1 10 3/mcL Normal 2.3-8.1 [facility] ([place]) Comment on above: Performed By: #### A NICO, LIPID, ADIFF, GFR, CBC, PSA, CMP #### [address] [address] CBCon 07-07-2023 Erythrocyte distribution width (RBC) [Ratio] 12.8 % Normal 11.5-15.5 [facility] ([place]) Comment on above: Performed By: #### A NICO, LIPID, ADIFF, GFR, CBC, PSA, CMP #### [address] [address] Hematocrit (Bld) [Volume fraction] 42.0 % Normal 40.0-52.0 [facility] ([place]) Comment on above: Performed By: #### A NICO, LIPID, ADIFF, GFR, CBC, PSA, CMP #### [place] [address] Hgb 14.1 G/dL Normal 13.0-17.5 [facility] ([place]) Comment on above: Performed By: #### A NICO, LIPID, ADIFF, GFR, CBC, PSA, CMP #### [place] [address] MCH (RBC) [Entitic mass] 31.9 pg Normal 27.0-33.0 [facility] ([place]) Comment on above: Performed By: #### A NICO, LIPID, ADIFF, GFR, CBC, PSA, CMP #### [place] [address] MCHC 33.5 G/dL Normal 32.0-36.0 [facility] ([place]) Comment on above: Performed By: #### A NICO, LIPID, ADIFF, GFR, CBC, PSA, CMP #### [place] [address] MCV (RBC) [Entitic vol] 95.1 fL Normal 81.0-100.0 A [facility] ([place]) Comment on above: Performed By: #### A NICO, LIPID, ADIFF, GFR, CBC, PSA, CMP #### [place] [address] Platelet 305 10 3/mcL Normal 150-450 [facility] ([place]) Comment on above: Performed By: #### A NICO, LIPID, ADIFF, GFR, CBC, PSA, CMP #### [place] [address] Platelet mean volume (Bld) [Entitic vol] 7.8 fL Normal 6.4-10.5 [facility] ([place]) Comment on above: Performed By: #### A NICO, LIPID, ADIFF, GFR, CBC, PSA, CMP #### [place] [address] RBC 4.42 10 6/mcL Low 4.50-6.00 [facility] ([place]) Comment on above: Performed By: #### A NICO, LIPID, ADIFF, GFR, CBC, PSA, CMP #### [address] [address] WBC 9.3 10 3/mcL Normal 4.5-10.8 [facility] ([place]) Comment on above: Performed By: #### A NICO, LIPID, ADIFF, GFR, CBC, PSA, CMP #### [address] [address] CMPon 07-07-2023 Albumin Level 3.5 G/dL Normal 3.2-4.8 [facility] ([place]) Comment on above: Performed By: #### A NICO, LIPID, ADIFF, GFR, CBC, PSA, CMP #### [address] [address] Albumin/Globulin [Mass ratio] 1.0 {ratio} Normal 0.9-1.6 [facility] ([place]) Comment on above: Performed By: #### A NICO, LIPID, ADIFF, GFR, CBC, PSA, CMP #### [address] [address] ALP [Catalytic activity/Vol] 103 U/L Normal 38-126 [facility] ([place]) Comment on above: Performed By: #### A NICO, LIPID, ADIFF, GFR, CBC, PSA, CMP #### [address] [address] ALT [Catalytic activity/Vol] 14 U/L Normal 12-55 [facility] ([place]) Comment on above: Performed By: #### A NICO, LIPID, ADIFF, GFR, CBC, PSA, CMP #### [address] [address] AST [Catalytic activity/Vol] 17 U/L Normal 8-34 [facility] ([place]) Comment on above: Performed By: #### A NICO, LIPID, ADIFF, GFR, CBC, PSA, CMP #### [place] [id number] Bili Total 0.60 mg/dL Normal 0.20-1.20 [facility] ([place]) Comment on above: Result Comment: Use of this assay is not recommended for patients undergoing treatment with eltrombopag due to the potential for falsely elevated results. Performed By: #### A NICO, LIPID, ADIFF, GFR, CBC, PSA, CMP #### [address] [address] BUN/Creatinine Ratio 13.5 ratio Normal 10.0-22.0 [facility] ([place]) Comment on above: Performed By: #### A NICO, LIPID, ADIFF, GFR, CBC, PSA, CMP #### [place] [id number] Calcium [Mass/Vol] 9.0 mg/dL Normal 8.7-10.4 [facility] ([place]) Comment on above: Performed By: #### A NICO, LIPID, ADIFF, GFR, CBC, PSA, CMP #### [place] [id number] Chloride [Moles/Vol] 106 mmol/L Normal 98-110 [facility] ([place]) Comment on above: Performed By: #### A NICO, LIPID, ADIFF, GFR, CBC, PSA, CMP #### [place] [id number] CO2 [Moles/Vol] 32 mmol/L Normal 22-32 [facility] ([place]) Comment on above: Performed By: #### A NICO, LIPID, ADIFF, GFR, CBC, PSA, CMP #### [place] [id number] Creatinine [Mass/Vol] 0.89 mg/dL Normal 0.60-1.40 [facility] ([place]) Comment on above: Performed By: #### A NICO, LIPID, ADIFF, GFR, CBC, PSA, CMP #### [place] [id number] Electrolyte Balance 4.0 mEq/L Normal 4.0-15.0 [facility] ([place]) Comment on above: Performed By: #### A NICO, LIPID, ADIFF, GFR, CBC, PSA, CMP #### [address] [address] Globulin 3.4 G/dL Normal 1.5-3.8 [facility] ([place]) Comment on above: Performed By: #### A NICO, LIPID, ADIFF, GFR, CBC, PSA, CMP #### [address] [address] Glucose [Mass/Vol] 93 mg/dL Normal 82-115 [facility] ([place]) Comment on above: Performed By: #### A NICO, LIPID, ADIFF, GFR, CBC, PSA, CMP #### [address] [address] Potassium [Moles/Vol] 4.8 mmol/L Normal 3.5-5.0 [facility] ([place]) Comment on above: Performed By: #### A NICO, LIPID, ADIFF, GFR, CBC, PSA, CMP #### [address] [address] Sodium [Moles/Vol] 142 mmol/L Normal 136-145 [facility] ([place]) Comment on above: Performed By: #### A NICO, LIPID, ADIFF, GFR, CBC, PSA, CMP #### [address] [address] Total Protein 6.9 G/dL Normal 5.7-8.2 [facility] ([place]) Comment on above: Result Comment: No te - New Reference Range in effect 20 Performed By: #### A NICO, LIPID, ADIFF, GFR, CBC, PSA, CMP #### [address] [address] Urea nitrogen [Mass/Vol] 12.0 mg/dL Normal 8.0-22.0 [facility] ([place]) Comment on above: Performed By: #### A NICO, LIPID, ADIFF, GFR, CBC, PSA, CMP #### [address] [address] LIPIDon 07-07-2023 Cholesterol [Mass/Vol] 160 mg/dL Normal 50-199 [facility] ([place]) Comment on above: Result Comment: Chol esterol Reference Interval: Less than 200 Desirable 200-239 Borderline high risk 240 and above High risk Performed By: #### A NICO, LIPID, ADIFF, GFR, CBC, PSA, CMP #### [address] [address] Cholesterol in HDL [Mass/Vol] 56 mg/dL Normal 40-59 [facility] ([place]) Comment on above: Performed By: #### A NICO, LIPID, ADIFF, GFR, CBC, PSA, CMP #### [address] [address] Cholesterol in LDL [Mass/Vol] 93 mg/dL Normal 0-129 [facility] ([place]) Comment on above: Performed By: #### A NICO, LIPID, ADIFF, GFR, CBC, PSA, CMP #### [address] [address] Triglyceride [Mass/Vol] 56 mg/dL Normal 3-149 A [facility] ([place]) Comment on above: Performed By: #### A NICO, LIPID, ADIFF, GFR, CBC, PSA, CMP #### [address] [address] PSAon 07-07-2023 Prostate Specific Antigen 0.55 ng/mL Normal 0.02-4.00 [facility] ([place]) Comment on above: Result Comment: Shelby ent results determined by assays using different manufacturers for methods may not be comparable. Performed By: #### A NICO, LIPID, ADIFF, GFR, CBC, PSA, CMP #### [address] [address] .GFRon 01-07-2023 GFR >60 Normal [facility] ([place] Comment on above: Result Comment: GFR Population [...] L IPID, BMP, GFR, HCV1, TCANC #### [address] [address] GFR Non- >60 Normal [facility] ([place]) Comment on above: Result Comment: GFR Population [...] L IPID, BMP, GFR, HCV1, TCANC #### [address] [address] BMPon 01-07-2023 BUN/Creatinine Ratio 14.8 ratio Normal 10.0-22.0 [facility] ([place]) Comment on above: Performed By: #### L IPID, BMP, GFR, HCV1, TCANC #### [address] [address] Calcium [Mass/Vol] 9.3 mg/dL Normal 8.7-10.4 [facility] ([place] Comment on above: Performed By: #### L IPID, BMP, GFR, HCV1, TCANC #### [address] [address] Chloride [Moles/Vol] 107 mmol/L Normal 98-110 [facility] ([place]) Comment on above: Performed By: #### L IPID, BMP, GFR, HCV1, TCANC #### [address] [address] CO2 [Moles/Vol] 28 mmol/L Normal 22-32 [facility] ([place] Comment on above: Performed By: #### L IPID, BMP, GFR, HCV1, TCANC #### [address] [address] Creatinine [Mass/Vol] 0.88 mg/dL Normal 0.60-1.40 [facility] ([place]) Comment on above: Performed By: #### L IPID, BMP, GFR, HCV1, TCANC #### [address] [address] Electrolyte Balance 7.0 mEq/L Normal 4.0-15.0 [facility] ([place]) Comment on above: Performed By: #### L IPID, BMP, GFR, HCV1, TCANC #### [place] [id number] Glucose [Mass/Vol] 90 mg/dL Normal 82-115 [facility] ([place] Comment on above: Performed By: #### L IPID, BMP, GFR, HCV1, TCANC #### [address] [address] Potassium [Moles/Vol] 5.5 mmol/L High 3.5-5.0 [facility] ([place]) Comment on above: Result Comment: Spec imen slightly hemolyzed. Performed By: #### L IPID, BMP, GFR, HCV1, TCANC #### [address] [address] Sodium [Moles/Vol] 142 mmol/L Normal 136-145 [facility] ([place] Comment on above: Performed By: #### L IPID, BMP, GFR, HCV1, TCANC #### [address] [address] Urea nitrogen [Mass/Vol] 13.0 mg/dL Normal 8.0-22.0 [facility] ([place]) Comment on above: Performed By: #### L IPID, BMP, GFR, HCV1, TCANC #### [place] [id number] HCVon 01-07-2023 Hep C Ab Non-Reactive Normal Non-Reactive [facility] ([place]) Comment on above: Performed By: #### A NICO, LIPID, ADIFF, GFR, CBC, PSA, CMP #### [address] [address] Hep C Ab Int Normal [facility] ([place]) Comment on above: Result Comment: Nonr eactive: [...] LIPID, ADIFF, GFR, CBC, PSA, CMP #### [address] [address] LIPIDon 01-07-2023 Cholesterol [Mass/Vol] 155 mg/dL Normal 50-199 [facility] ([place]) Comment on above: Result Comment: Chol esterol Reference Interval: Less than 200 Desirable 200-239 Borderline high risk 240 and above High risk Performed By: #### A NICO, LIPID, ADIFF, GFR, CBC, PSA, CMP #### [address] [address] Cholesterol in HDL [Mass/Vol] 57 mg/dL Normal 40-59 [facility] ([place]) Comment on above: Performed By: #### A NICO, LIPID, ADIFF, GFR, CBC, PSA, CMP #### [address] [address] Cholesterol in LDL [Mass/Vol] 81 mg/dL Normal 0-129 [facility] ([place]) Comment on above: Performed By: #### A NICO, LIPID, ADIFF, GFR, CBC, PSA, CMP #### [address] [address] Triglyceride [Mass/Vol] 83 mg/dL Normal 3-149 A [facility] ([place]) Comment on above: Performed By: #### A NICO, LIPID, ADIFF, GFR, CBC, PSA, CMP #### [address] [address] TCANCon 01-07-2023 Test cancelled: CBC Normal [facility] ([place]) Comment on above: Performed By: #### L IPID, BMP, GFR, HCV1, TCANC #### [facility] [address] [place] [address] Basophil percentageon 2021 Chloride [Moles/Vol] 109 mmol/L 98-107 [facility] Work Phone: Glucose [Mass/Vol] 98 mg/dL 74-106 [facility] Work Phone: Potassium [Moles/Vol] 4.7 mmol/L 3.5-5.1 [facility] Work Phone: Sodium [Moles/Vol] 141 mmol/L 136-145 [facility] Work Phone: Laboratory - Chemistry and C hemistry - challengeon 12-14-2021 CO2 [Moles/Vol] 29.0 mmol/L 21.0-32.0 [facility] Work Phone: Natriuretic peptide B (Bld) [Mass/Vol] 84.0 pg/mL 0-100 [facility] Work Phone: Urea nitrogen/Creatinine [Mass ratio] 13.9 mg/mg 10-20 [facility] Work Phone: No Panel Informationon 12-14 Estimated GFR (MDRD) Amer 101 mL/min >60 [facility] Work Phone: Comment on above: GFR Calc Estimated GFR (MDRD) Non-Af Amer 83 mL/min >60 [facility] Work Phone: Comment on above: Non- GFR Calc Serum or plasma calcium todd urement (mass/volume)on 12-14-2021 Calcium [Mass/Vol] 8.7 mg/dL 8.5-10.1 [facility] Work Phone: Serum or plasma creatinine m easurement (mass/volume)on 12-14-2021 Creatinine [Mass/Vol] 0.93 mg/dL 0.70-1.30 [facility] Work Phone: Comment on above: The validity of the calculated GFR & GFRAA in patients over 70 years has not been determined. Clinical correlation is essential. Serum or plasma urea nitroge n measurement (mass/volume)on 12-14-2021 Urea nitrogen [Mass/Vol] 13 mg/dL 7-18 [facility] Work Phone: Thin prep Papanicolaou smear with manual screeningon 12-14-2021 Thin prep Papanicolaou smear with manual screening 3 5-15 [facility] Work Phone: LABORATORYOrdered By: Michoacano Carty on [...] /min Dr. Fernandez Baig DO Work Phone: [facility] 11-19-2024 10:46-0400 Respiratory rate 16 /min Dr. Fernandez Baig DO Work Phone: [facility] 11-19-2024 09:09-0400 Body temperature 97.9 [degF] Dr. Fernandez Baig DO Work Phone: [facility] 11-19-2024 09:09-0400 Diastolic blood pressure 72 mm[Hg] Dr. Fernandez Baig DO Work Phone: [facility] 11-19-2024 09:09-0400 Inhaled oxygen flow rate 6 L/min Dr. Fernandez Baig DO Work Phone: [facility] 11-19-2024 09:09-0400 SaO2% (BldA) [Mass fraction] 98 % Dr. Fernandez Baig DO Work Phone: [facility] 11-19-2024 09:09-0400 Systolic blood pressure 133 mm[Hg] Dr. Fernandez Baig DO Work Phone: [facility] 11-16-2024 10:45-0400 Body height 175.[address] Fernandez Baig DO Work Phone: [facility] 11-16-2024 10:45-0400 Body weight 81.[address] Fernandez Baig DO Work Phone: [facility] 11-15-2024 15:09-0400 Body mass index (BMI) [Ratio] 26.6 kg/m2 Dr. Fernandez Baig DO Work Phone: [facility] 11-15-2024 14:00-0400 Diastolic blood pressure 85 mm[Hg] Dr. Fernandez aBig DO Work Phone: [facility] 11-15-2024 14:00-0400 Inhaled oxygen flow rate 5 L/min Dr. Fernandez Baig DO Work Phone: [facility] 11-15-2024 14:00-0400 SaO2% (BldA) [Mass fraction] 94 % Dr. Fernandez Baig DO Work Phone: [facility] 11-15-2024 14:00-0400 Systolic blood pressure 130 mm[Hg] Dr. Fernandez Baig DO Work Phone: [facility] 11-15-2024 13:05-0400 Body temperature 98.7 [degF] Dr. Fernandez Baig DO Work Phone: [facility] 11-15-2024 13:05-0400 Heart rate 83 /min Dr. Fernandez Baig DO Work Phone: [facility] 11-15-2024 13:05-0400 Respiratory rate 21 /min Dr. Fernandez Baig DO Work Phone: [facility] 11-15-2024 10:00-0400 Body height 175.[address] Fernandez Baig DO Work Phone: [facility] 09-12-2024 07:50-0500 Body mass index (BMI) [Ratio] 26.6 kg/m2 Dr. Fernandez Baig DO Work Phone: [facility] 09-12-2024 07:50-0500 Body temperature 98.4 [degF] Dr. Fernandez Baig DO Work Phone: [facility] 09-12-2024 07:50-0500 Body weight 81.[address] Fernandez Baig DO Work Phone: [facility] 09-12-2024 07:50-0500 Diastolic blood pressure 73 mm[Hg] Dr. Fernandez Baig DO Work Phone: [facility] 09-12-2024 07:50-0500 Heart rate 72 /min Dr. Fernandez Baig DO Work Phone: [facility] 09-12-2024 07:50-0500 Inhaled oxygen flow rate 4 L/min Dr. Fernandez Baig DO Work Phone: [facility] 09-12-2024 07:50-0500 Respiratory rate 20 /min Dr. Fernandez Baig DO Work Phone: [facility] 09-12-2024 07:50-0500 SaO2% (BldA) [Mass fraction] 90 % Dr. Fernandez Baig DO Work Phone: [facility] 09-12-2024 07:50-0500 Systolic blood pressure 123 mm[Hg] Dr. Fernandez Baig DO Work Phone: [facility] 09-11-2024 10:38-0500 Body mass index (BMI) [Ratio] 26.2 kg/m2 Dr. Fernandez Baig DO Work Phone: [facility] 09-11-2024 10:38-0500 Body weight 80.[address] Fernandez Baig DO Work Phone: [facility] 09-11-2024 10:38-0500 Diastolic blood pressure 76 mm[Hg] Dr. Fernandez Baig DO Work Phone: [facility] 09-11-2024 10:38-0500 Heart rate 76 /min Dr. Fernandez Baig DO Work Phone: [facility] 09-11-2024 10:38-0500 Inhaled oxygen flow rate 5 L/min Dr. Fernandez Baig DO Work Phone: [facility] 09-11-2024 10:38-0500 Respiratory rate 18 /min Dr. Fernandez Baig DO Work Phone: [facility] 09-11-2024 10:38-0500 SaO2% (BldA) [Mass fraction] 85 % Dr. Fernandez Baig DO Work Phone: [facility] 09-11-2024 10:38-0500 Systolic blood pressure 144 mm[Hg] Dr. Fernandez Baig DO Work Phone: [facility] 08-14-2024 08:50-0500 Body mass index (BMI) [Ratio] 26.1 kg/m2 Dr. Fernandez Baig DO Work Phone: [facility] 08-14-2024 08:50-0500 Body temperature 97.4 [degF] Dr. Fernandez Baig DO Work Phone: [facility] 08-14-2024 08:50-0500 Body weight 80.[address] Fernandez Baig DO Work Phone: [facility] 08-14-2024 08:50-0500 Diastolic blood pressure 71 mm[Hg] Dr. Fernandez Baig DO Work Phone: [facility] 08-14-2024 08:50-0500 Heart rate 82 /min Dr. Fernandez Baig DO Work Phone: [facility] 08-14-2024 08:50-0500 Inhaled oxygen flow rate 4 L/min Dr. Fernandez Baig DO Work Phone: [facility] 08-14-2024 08:50-0500 Respiratory rate 22 /min Dr. Fernandez Baig DO Work Phone: [facility] 08-14-2024 08:50-0500 SaO2% (BldA) [Mass fraction] 93 % Dr. Fernandez Baig DO Work Phone: [facility] 08-14-2024 08:50-0500 Systolic blood pressure 125 mm[Hg] Dr. Fernandez Baig DO Work Phone: [facility] 09-12-2023 11:20-0500 Body height 175.[address] Fernandez Baig Work Phone: [facility] 09-12-2023 11:20-0500 Body mass index (BMI) [Ratio] 26.6 kg/m2 Dr. Fernandez Baig Work Phone: [facility] 09-12-2023 11:20-0500 Body weight 81.[address] Fernandez Baig Work Phone: [facility] 09-12-2023 11:20-0500 Diastolic blood pressure 66 mm[Hg] Dr. Fernandez Baig Work Phone: [facility] 09-12-2023 11:20-0500 Heart rate 61 /min Dr. Fernandez Baig Work Phone: [facility] 09-12-2023 11:20-0500 Inhaled oxygen flow rate 4 L/min Dr. Fernandez Baig Work Phone: [facility] 09-12-2023 11:20-0500 Respiratory rate 20 /min Dr. Fernandez Baig Work Phone: [facility] 09-12-2023 11:20-0500 SaO2% (BldA) [Mass fraction] 90 % Dr. Fernandez Baig Work Phone: [facility] 09-12-2023 11:20-0500 Systolic blood pressure 123 mm[Hg] Dr. Fernandez Baig Work Phone: [facility] 07-29-2023 08:54-0500 Body mass index (BMI) [Ratio] 26.3 kg/m2 Dr. Fernandez Baig Work Phone: [facility] 07-29-2023 08:54-0500 Body temperature 98.2 [degF] Dr. Fernandez Baig Work Phone: [facility] 07-29-2023 08:54-0500 Body weight 80.[address] Fernandez Baig Work Phone: [facility] 07-29-2023 08:54-0500 Diastolic blood pressure 76 mm[Hg] Dr. Fernandez Biag Work Phone: [facility] 07-29-2023 08:54-0500 Heart rate 73 /min Dr. Fernandez Baig Work Phone: [facility] 07-29-2023 08:54-0500 Inhaled oxygen flow rate 5 L/min Dr. Fernandez Baig Work Phone: [facility] 07-29-2023 08:54-0500 Respiratory rate 18 /min Dr. Fernandez Baig Work Phone: [facility] 07-29-2023 08:54-0500 SaO2% (BldA) [Mass fraction] 93 % Dr. Fernandez Baig Work Phone: [facility] 07-29-2023 08:54-0500 Systolic blood pressure 115 mm[Hg] Dr. Fernandez Baig Work Phone: [facility] 12-14-2021 15:00-0400 Body mass index (BMI) [Ratio] 24.8 kg/m2 Dr. Fernandez Baig Work Phone: [facility] Work Phone: 12-14-2021 15:00-0400 Body weight 78.[address] Fernandez Baig Work Phone: [facility] Work Phone: 12-14-2021 15:00-0400 Diastolic blood pressure 81 mm[Hg] Dr. Fernandez Baig Work Phone: [facility] Work Phone: 12-14-2021 15:00-0400 Heart rate 65 /min Dr. Fernandez Baig Work Phone: [facility] Work Phone: 12-14-2021 15:00-0400 Respiratory rate 18 /min Dr. Fernandez Baig Work Phone: [facility] Work Phone: 12-14-2021 15:00-0400 SaO2% (BldA) [Mass fraction] 94 % Dr. Fernandez Baig Work Phone: [facility] Work Phone: 12-14-2021 15:00-0400 Systolic blood pressure 134 mm[Hg] Dr. Fernandez Baig Work Phone: [facility] Work Phone: 11-03-2021 10:16-0400 Body mass index (BMI) [Ratio] 24.7 kg/m2 Dr. Fernandez Baig Work Phone: [facility] Work Phone: 11-03-2021 10:16-0400 Body temperature 99.3 [degF] Dr. Fernandez Baig Work Phone: [facility] Work Phone: 11-03-2021 10:16-0400 Body weight 78.[address] Fernandez Baig Work Phone: [facility] Work Phone: 11-03-2021 10:16-0400 Diastolic blood pressure 65 mm[Hg] Dr. Fernandez Baig Work Phone: [facility] Work Phone: 11-03-2021 10:16-0400 Heart rate 61 /min Dr. Fernandez Baig Work Phone: [facility] Work Phone: 11-03-2021 10:16-0400 Respiratory rate 16 /min Dr. Fernandez Baig Work Phone: [facility] Work Phone: 11-03-2021 10:16-0400 SaO2% (BldA) [Mass fraction] 95 % Dr. Fernandez Baig Work Phone: [facility] Work Phone: 11-03-2021 10:16-0400 Systolic blood pressure 134 mm[Hg] Dr. Fernandez Baig Work Phone: [facility] Work Phone: Encounters Encounter Date Encounter Type Care Provider Facility Start: 11-19-2024 Non-patient / Non-visit Dr. Rohan Henao MD [facility] Work Phone: Start: 11-18-2024 Non-patient / Non-visit Dr. Rohan Henao MD -[facility] Work Phone: Start: 11-17-2024 Non-patient / Non-visit Dr. Rohan Henao MD [facility] Work Phone: Start: 11-16-2024 ambulatory Dario Bar Facility:[facility] Start: 11-16-2024 Non-patient / Non-visit Dr. Dario scott MD -[facility] Start: 11-16-2024 Non-patient / Non-visit Dr. Rohan Henao MD -[facility] Work Phone: Start: 11-15-2024 Non-patient / Non-visit Dr. Rohan Henao MD [facility] Work Phone: Start: 11-15-2024 ambulatory Fernandez Baig [place] [facility] Start: 11-15-2024 End: 11-19-2024 Evaluation and management of inpatient Dr. Rohan Henao MD -[facility] Work Phone: Start: 10-26-2024 End: 10-26-2024 Patient encounter procedure Anastasiya Fink AUD Work Phone: Audiology Comment on above: Sensorineural hearin g loss (SNHL) of both ears (Primary Dx); Cochlear implant in place Start: 10-26-2024 End: 10-26-2024 ambulatory ANASTASIYA FINK Facility:[facility] Start: 10-18-2024 End: 10-18-2024 Telephone encounter [facility] Start: 09-12-2024 End: 09-12-2024 Patient encounter procedure Azucena YOUSSEF -[facility] Work Phone: Start: 09-12-2024 End: 09-12-2024 ambulatory Fernandez Baig Facility[place] Start: 09-11-2024 End: 09-11-2024 Patient encounter procedure Yung YOUSSEF -[facility] Work Phone: Start: 09-11-2024 End: 09-11-2024 ambulatory Fernandez Baig Facility[place] Start: 08-14-2024 End: 08-14-2024 Patient encounter procedure Azucena YOUSSEF -[facility] Work Phone: Start: 08-14-2024 End: 08-14-2024 ambulatory Azucena Bethea [employer] Facility[place] Start: 07-16-2024 End: 07-20-2024 ambulatory FERNANDEZ BAIG DO Facility:[facility] Start: 06-20-2024 End: 06-21-2024 Telephone encounter [facility] Comment on above: Patient Question Start: 06-19-2024 End: 06-19-2024 ambulatory ANASTASIYA FINK Facility:[facility] Start: 06-19-2024 End: 06-19-2024 Patient encounter procedure Anastasiya Fink AUD Work Phone: Audiology Comment on above: Sensorineural hearin g loss (SNHL) of both ears (Primary Dx); Cochlear implant in place Start: 06-15-2024 End: 06-19-2024 ambulatory FERNANDEZ BAIG DO Facility: Start: 04-16-2024 End: 04-16-2024 Telephone encounter Mathe[facility] Start: 04-03-2024 End: 04-03-2024 ambulatory ANASTASIYA FINK Facility:[facility] Start: 04-03-2024 End: 04-03-2024 Patient encounter procedure Anastasiyaben Fink AUD Work Phone: Audiology Comment on above: Bilateral hearing lo ss, unspecified hearing loss type (Primary Dx); Cochlear implant in place Start: 02-02-2024 End: 02-02-2024 ambulatory Azucena Bethea NP Facility[place] Start: 10-24-2023 End: 10-24-[address] Fernandez Baig Work Phone: [facility] Work Phone: Start: 10-24-2023 End: 10-24-[address] Fernandez Baig Work Phone: [facility] Work Phone: Start: 09-12-2023 End: 09-12-[address] Fernandez Baig Work Phone: [facility] Work Phone: Start: 07-29-2023 End: 07-29-[address] Fernandez Baig Work Phone: [facility] Pulmonary Medicine Work Phone: Start: 07-07-2023 End: 07-12-2023 ambulatory FERNANDEZ BAIG DO Facility:A Start: 01-06-2023 End: 01-10-2023 ambulatory FERNANDEZ BAIG DO Facility:A Start: 12-14-2021 End: 12-14-[address] Fernandez Baig Work Phone: [facility] Start: 12-14-2021 End: 12-14-[address] Fernandez Baig Work Phone: [facility] Start: 11-03-2021 End: 11-03-[address] [facility] Start: 07-09-2021 End: 07-09-[address] CORAZON EARL MD [facility] Procedures Date Procedure Procedure Detail [...] AM EDT Office Visit Audiology [address] [address] Anastasiya Fink, AUD [address] [place] [address] 1 yr follow up Audiology Comment on above: 1 yr follow up Start: 11-19-2024 Patient discharge [facility] Start: 11-19-2024 Care planning and pr oblem solving actions [facility] Start: 11-16-2024 Palliative care [facility] Start: 11-15-2024 [facility] Start: 11-15-2024 End: 11-15-2024 Following clinical pathway protocol [facility] Start: 11-15-2024 Ambulation without limitation [facility] Start: 11-15-2024 Assessment of risk o f venous thromboembolism [facility] Start: 11-15-2024 Bacteria identified in Sputum by Culture [facility] Start: 11-15-2024 Consultation [facility] Start: 11-15-2024 Elevation of head of bed [facility] Start: 11-15-2024 Incentive spirometry [facility] Start: 11-15-2024 Insertion of cathete r into peripheral vein [facility] Start: 11-15-2024 Measuring intake and output [facility] Start: 11-15-2024 Oxygen therapy [facility] Start: 11-15-2024 Patient education [facility] Start: 11-15-2024 Physiotherapy of chest [facility] Start: 11-15-2024 Providing care accor ding to standard [facility] Start: 11-15-2024 Referral to occupati onal therapist [facility] Start: 11-15-2024 Referral to service [facility] Start: 11-15-2024 Taking nasal swab [facility] Start: 11-15-2024 Legionella pneumophi la Ag [Presence] in Urine [facility] Start: 11-15-2024 Respiratory pathogen s DNA and RNA panel - Respiratory specimen by MELY with probe detection [facility] Start: 11-15-2024 Streptococcus pneumo niae antigen assay [facility] Start: 11-15-2024 End: 11-15-2024 [facility] Start: 11-15-2024 Verification routine [facility] Start: 11-15-2024 Continuous pulse oximetry [facility] Start: 11-15-2024 Dual pressure sponta neous ventilation support [facility] Start: 11-15-2024 Gas panel - Arterial blood [facility] Start: 11-15-2024 Admission procedure [facility] Start: 11-15-2024 End: 11-15-2024 [facility] Start: 10-26-2024 End: 10-26-2024 Patient encounter procedure 10/26/2024 2:30 PM EDT Office Visit Audiology [address] [place] [address] Anastasiya Fink, AUD [address] [place] [address] pair THAYER and CI Audiology Comment on above: pair THAYER and CI Start: 10-25-2024 Covid-19 Vaccine () Covid-19 Vaccine () [facility] Start: 07-11-2024 Advance Directive Discussion Advance Directive Discussion [facility] Start: 06-19-2024 End: 06-19-2024 Patient encounter procedure 06/19/2024 10:30 AM EST Office Visit Audiology [address] [address] Anastasiya Fink, AUD [address] [place] [address] cochlear implant Audiology Comment on above: cochlear implant Start: 03-11-2024 Covid-19 Vaccine ( season) Covid-19 Vaccine ( season) [facility] Start: 03-11-2024 Influenza vaccination Influenz a Vaccine (#1) [facility] Start: 07-11-2023 Advance Directive Discussion Advance Directive Discussion [facility] Start: 2019 RSV Vaccine (1 - 1-d ose 75+ series) RSV Vaccine (1 - 1-dose 75+ series) [facility] Start: 1994 Shingrix Vaccine (1 of 2) Churchill grix Vaccine (1 of 2) [facility] Start: 1989 Diabetes Screening Diabetes Screenin g [facility] Start: 1963 Urine microalbumin profile DTa P,Tdap,Td Vaccine (1 - Tdap) [facility] Start: 1962 Anxiety Screening Anxiety Screening [facility] Start: 1962 Depression Screening Depression Scre ening [facility] Anion gap in Serum o r Plasma [facility] BUN/Creatinine ratio [facility] Calcium [Mass/volume ] in Serum or Plasma [facility] Carbon dioxide, tota l [Moles/volume] in Central venous blood [facility] Creatinine [Mass/vol ume] in Serum or Plasma [facility] Erythrocyte mean corpuscular volume determination [facility] Glucose [Mass/volume ] in Serum or Plasma [facility] Hematocrit [Volume Fraction] of Blood [facility] Hemoglobin [Mass/vol ume] in Blood [facility] Leukocytes [#/volume ] in Blood [facility] Magnesium measurement [facility] Mean corpuscular hemoglobin concentration determination [facility] Mean corpuscular hemoglobin determination [facility] Measurement of renal function [facility] Neutrophil count [facility] Neutrophil percent differential count [facility] Patient referral [facility] Work Phone: Platelets [#/volume] in Blood [facility] Potassium measurement [facility] Red blood cell count [facility] Red cell distributio n width determination [facility] Serum chloride measurement [facility] Sodium measurement [facility] Troponin T.cardiac [Mass/volume] in Serum or Plasma by High sensitivity method [facility] Urea nitrogen [Mass/volume] in Serum or Plasma [facility] Immunizations Immunization Date Immunization Notes Care Provider Fa lashell 04-13-2023 influenza virus vacc ine, unspecified formulation Anastasiya HOLCOMB Work Phone: [facility] 05-04-2022 influenza, injectabl e, quadrivalent, preservative free Dr. Fernandez Baig Work Phone: [facility] 06-10-2021 COVID-19, mRNA, LNP- S, PF, 100 mcg/ 0.5 mL dose; Translations: [Moderna COVID-19 Vaccine] DR CORAZON EARL MD [facility] 09-10-2020 COVID-19, mRNA, LNP- S, PF, 100 mcg/ 0.5 mL dose; Translations: [Moderna COVID-19 Vaccine] DR CORAZON EARL MD [facility] 08-13-2020 COVID-19, mRNA, LNP- S, PF, 100 mcg/ 0.5 mL dose; Translations: [Moderna COVID-19 Vaccine] DR CORAZON EARL MD [facility] 04-23-2020 influenza, injectabl e, quadrivalent, preservative free Dr. Fernandez Baig Work Phone: [facility] 04-23-2020 influenza, seasonal, injectable Dr. Fernandez Baig Work Phone: [facility] Work Phone: 04-23-2020 Fluad Quad (65yr up)(PF) 60 mcg (15 mcg x 4)/0.5mL IM syringe (flu vac Dr. Fernandez Baig Work Phone: [facility] Work Phone: 04-24-2019 pneumococcal polysaccharide vaccine, [address] Fernandez Baig Work Phone: [facility] 04-24-2019 pneumococcal vaccine , unspecified formulation Dr. Fernandez Baig Work Phone: [facility] Work Phone: 04-09-2019 Seasonal trivalent influenza vaccine, adjuvanted, preservative free; Translations: [Fluad ] DR CORAZON EARL MD [facility] 03-11-[address] Fernandez Baig Work Phone: [facility] 04-26-[address] Fernandez Baig Work Phone: [facility] 04-26-2018 Fluad 2017- 65yr up(PF)45 mcg(15 mcgx3)/0.5 mL intramuscular syringe (flu vac Dr. Fernandez Baig Work Phone: [facility] Work Phone: Payers Date Payer Category Payer Private Health Insurance [facility] [id number] 2024 Self-pay [id number] 2023 Unknown [id number] 2009 Medicare [id number] 2009 Medicare [id number] 1944 Unknown [id number] [id number] .627 1944 Unknown [id number] 2.16.840.1.367013.3.579.2 .627 1944 Unknown [id number] 2.16.840.1.948613.3.579.2 .627 1944 Unknown [id number] 2.16.840.1.753120.3.579.2 .627 Unknown [id number] 2.16.840.1.249445.3.579.2 .462 Unknown [id number] 2.16.840.1.601241.3.579.2 .462 Unknown [id number] 2.16.840.1.802921.3.579.2 .462 Unknown [id number] 2.16.840.1.825428.3.579.2 .462 Unknown [id number] 2.16.840.1.824827.3.579.2 .462 Unknown [id number] 2.16.840.1.765949.3.579.2 .462 Unknown [id number] 2.16.840.1.979665.3.579.2 .462 Unknown [id number] 2.16.840.1.890089.3.579.2 .462 Unknown [id number] 2.16.840.1.577387.3.579.2 .462 Unknown [id number] 2.16.840.1.772260.3.579.2 .462 Unknown [id number] 2.16.840.1.869954.3.579.2 .462 Unknown [id number] 2.16.840.1.087122.3.579.2 .462 Social History Date Type Detail Facility Start: 03-02-2019 End: 11-17-2024 Ex-smoker (finding) [facility] Sex Assigned At [facility] Start: 12-14-2021 End: 09-12-2023 Tobacco smoking status NHIS Unknown if ever smoked [facility] Start: 12-24-2019 Spouse/ Signif icant Other [facility] Start: 12-24-2019 [facility] Start: 1945 Sex Assigned At Male [facility] Start: 1945 Sex assigned at Not on file [facility] Gender identity Not on file Alonzo inic Goals Date Patient Goal Desired Activity /State Functional Status Date Assessment Result Facility 11-19-2024 Functional status Ambulates;Chair [facility] Work Phone: Mental Status Date Assessment Result Facility 11-19-2024 Cognitive function Voice/Name [facility] Work Phone: Clinical Notes 04-03-2024 to 11-19-2024 Note Date & Type Note Facility 11-19-2024 Discharge summary [facility] 11-19-2024 Discharge summary [facility] 11-19-2024 Discharge summary Note Date/Time November 19, 2024 12:29pm [facility] Medical Records Department [address] [place] [address] Instructions for Home/Discharge Instructions 11/19/24 1019 MR#: [id number] Acct: [id number] Name: NANETTE MONROY Rep #:[id number] : 1945 79 From: Rohan Cortez PCP: [...] Shearer; Bhavana Tellez; Jenny Tijerina; Naya Livingston HARBOUR MASTER; Adrianne Mcqueen Discharge Orders/Prescriptions Prescriptions: New benzonatate [...] (Reason: Constipation) Qty: 0 0RF Rx Instructions: Iryx-zhq-ljtsyxn prednisone 10 mg tablet 10 mg PO [...] Mathew Low NP; CARMELITA Vasquez ~ Signed [facility] Work Phone: 1(733) 501-979805-12-2025 Discharge summary Author [facility] Note Date/Time November 19, 2024 12:31 pm [facility] Medical Records Department [address] [place] [address] Discharge Summary 11/19/24 1019 MR#: [id number] Acct: [id number] Name: NANETTE MONROY Rep #:[id number] : 1945 79 From: Rohan Cortez PCP: Dr. Fernandez Baig DO Status:ADM IN Location: [facility] [id number] Providers Date of Admission: 11/15/24 Date of Discharge: 11/19/24 Primary Care Physician: Dr. Fernandez Baig DO Consultations 11/15/24 14:59 Consult: Pump Operator / Pulmonary Medicine Routine Consulting Provider: Pulmonary Medicine [facility] Reason for Consult: RESP FAILURE, NEED [...] lobes, started on IV Zosyn and Zithromax. Pump Operator consult. Pneumonia workup ordered. ABG 7.4 on [...] antibiogram, tapering dose of prednisone, Mucinex DM. Sales Department Manager called to inform. Follow- up with PCP [...] mg tablet,delayed release 81 mg PO DAILY@1999 [facility] 12/24/19 nitroglycerin 0.4 mg sublingual tablet 0.4 [...] (Auto) 72.5 H, Lymph % (Auto) 18.5L, Harris % (Auto) 8.1, Eos % (Auto) 0.2, [...] Shearer; Bhavana Tellez; Jenny Tijerina; Naya Livingston HARB[employer] MASTER; Adrianne Mcqueen Discharge Orders/Prescriptions Prescriptions: New benzonatate [...] (Reason: Constipation) Qty: 0 0RF Rx Instructions: Nzga-vrm-gfewusm prednisone 10 mg tablet 10 mg PO [...] in Home Charges/Coding Visit Charges Inpatient E&M: 04993 Disch Hosp >30min 11/19/24 1231 <Electronically signed by Rohan Henao MD> Cosigner Signature (if applicable): CC: Dr. Rohan Henao MD; Dr. Fernandez Baig DO~ Signed [facility] Work Phone: 1(712) 447-980905-12-2025 [facility] Medical Records Department [address] [place] [address] Discharge Summary 11/19/24 1019 MR#: [id number] Acct: [id number] Name: NANETTE MONROY Rep #: [id number] : 1945 79 From: Rohan Henao MD PCP: Dr. Fernandez Baig DO Status:ADM IN Location: [place] [address] Providers Date of Admission: 11/15/24 Date of Discharge: 11/19/24 Primary Care Physician: Dr. Fernandez Baig DO Consultations 11/15/24 14:59 Consult: Pump Operator / Pulmonary Medicine Routine Consulting Provider: [facility] [place] Reason for Consult: RESP FAILURE, NEED AIRVO, [...] lobes, started on IV Zosyn and Zithromax. Pump Operator consult. Pneumonia workup ordered. ABG 7.4 on [...] antibiogram, tapering dose of prednisone, Mucinex DM. Sales Department Manager called to inform. Follow-up with PCP and [...] central line/PICC line or (more content not included)...[facility]05-11-2025 Progress note Author Rohan Henao [facility] Note Date/Time November 18, 2024 11:50 am [facility] Medical Records Department [address] [place] [address] Progress Note - Hospitalist 11/18/24 1140 MR#: [id number] Acct: [id number] Name: NANETTE MONROY Rep #:[id number] : 1945 79 From: Rohan Cortez PCP: Dr. Fernandez Baig, DO Status:ADM IN Location: [place] [address] Reason for Visit Reason for Visit: Diagnoses [...] lobes, started on IV Zosyn and Zithromax. Pump Operator consult. Pneumonia workup ordered. ABG 7.4 3/86 [...] vasopressor if needed. Total time spent in ynyu-hm-nthn encounter in discussion of advanced directive 17 [...] Location: [facility] Charges/Coding Visit Charges Inpatient E&M: 60915 Subs Hosp L2 11/18/24 1150 <Electronically signed by Rohan Henao MD> Cosigner Signature (if applicable): CC: ~ Signed [facility] Work Phone: 1(158) 415-826405-11-2025 Progress note [facility] Medical Records Department [address] [place] [address] Progress Note - Hospitalist 11/18/24 1140 MR#: [id number] Acct: [id number] Name: NANETTE MONROY Rep #:[id number] : 1945 79 From: Rohan Cortez PCP: Dr. Fernandez Baig, Status:ADM IN Location: [facility] [id number]- 1 Reason for Visit Reason for Visit: [...] lobes, started on IV Zosyn and Zithromax. Pump Operator consult. Pneumonia workup ordered. ABG 7.4 on [...] vasopressor if needed. Total time spent in xppz-ti-wezk encounter in discussion of advanced directive 17 [...] Location: [facility] Charges/Coding Visit Charges Inpatient E&M: 75288 Subs Hosp L2 11/18/24 1150 Cosigner Signature (if applicable): CC: ~ Signed [facility]05-11-2025 Progress note Author Carlos Sanchez [facility] Note Date/Time November 18, 2024 9:49a m [facility] Medical Records Department [address] [place] [address] Progress Note - Pump Operator 11/18/24 0944 MR#: [id number] Acct: [id number] Name: NANETTE MONROY Rep #:[id number] : 1945 79 From: Carlos Sanchez MD PCP: Dr. Fernandez Baig, DO Status:ADM IN Location: [facility] [id number]- [id number] Objective Data Objective Data Vital Signs: [...] mls/hr 11/15/24 15:20 11/17/24 06:51 IV Infused .[id number] PRN Infusion Saline Flush Sodium Chloride 250 mls @ 15 mls/hr 11/15/24 15:20 IV .[id number] PRN Additional IVPB Infusion Isosorbide Mononitrate 30 mg 11/16/24 12:00 11/17/24 13:01 Isosorbide Mononitrate 30 Mg Tablet PO 30 mg DAILY@1200 [facility] Administration Protocol Losartan Potassium 25 mg 11/15/24 [...] spray 11/17/24 23:21 Sodium Chloride 0.65% 1 [place].Btl NASAL TID PRN PRN NASAL DRYNESS Lab [...] Cosigner Signature (if applicable): CC: ~ Signed [facility] Work Phone: 1(650) 591-295105-11-2025 Progress note [facility] Medical Records Department [address] [place] [address] Progress Note - Pump Operator 11/18/24 0944 MR#: [id number] Acct: [id number] Name: NANETTE MONROY Rep #:[id number] : 1945 79 From: Carlos Sanchez MD PCP: Dr. Fernandez Baig, DO Status:ADM IN Location: [place] [address] Objective Data Objective Data Vital Signs: Vital [...] mls/hr 11/15/24 15:20 11/17/24 06:51 IV Infused .[id number] PRN Infusion Saline Flush Sodium Chloride 250 mls @ 15 mls/hr 11/15/24 15:20 IV .[id number] PRN Additional IVPB Infusion Isosorbide Mononitrate 30 mg 11/16/24 12:00 11/17/24 13:01 Isosorbide Mononitrate 30 Mg Tablet PO 30 mg DAILY@1200 [facility] Administration Protocol Losartan Potassium 25 mg 11/15/24 [...] spray 11/17/24 23:21 Sodium Chloride 0.65% 1 [place].Btl NASAL TID PRN PRN NASAL DRYNESS Lab [...] no rashes Subjective Subjective doing well 11/18/24 0930 Cosigner Signature (if applicable): CC: ~ Signed [facility]05-10-2025 Progress note Author Rohan Henao [facility] Note Date/Time November 17, 2024 12:43 pm [facility] Medical Records Department [address] [place] [address] Progress Note - Hospitalist 11/17/24 0934 MR#: [id number] Acct: [id number] Name: NANETTE MONROY Faith Rep #:[id number] : 1945 79 From: Rohan Cortez PCP: Dr. Fernandez Baig, DO Status:ADM IN Location: [place] [id number] Reason for Visit Reason for Visit: [...] lobes, started on IV Zosyn and Zithromax. Pump Operator consult. Pneumonia workup ordered. ABG 7.4 on [...] vasopressor if needed. Total time spent in poje-yx-axkt encounter in discussion of advanced directive 17 [...] Location: [facility] Charges/Coding Visit Charges Inpatient E&M: 89289 Subs Hosp L2 11/17/24 1243 <Electronically signed by Rohan Henao MD> Cosigner Signature (if applicable): CC: ~ Signed [facility] Work Phone: 1(875) 957-793205-10-2025 Progress note Author Carlos Sanchez [facility] Note Date/Time November 17, 2024 10:53 am [facility] Medical Records Department [address] [place] [address] Progress Note - Pump Operator 11/17/24 1048 MR#: [id number] Acct: [id number] Name: NANETTE MONROY Rep #:[id number] : 1945 79 From: Carlos Sanchez MD PCP: Dr. Fernandez Baig, DO Status:ADM IN Location: [facility] [id number]- 1 Objective Data Objective Data Vital Signs: [...] 81 Mg Tablet PO 81 mg DAILY@2000 [facility] Administration Atorvastatin Calcium 40 mg 11/16/24 10:00 11/17/24 09:29 Atorvastatin Calcium 40 Mg Tablet PO 40 mg DAILY [facility] Administration Benzonatate 200 mg 11/15/24 22:00 11/17/24 05:40 Benzonatate 100 Mg Capsule PO Not Given TID [facility] Doxycycline Monohydrate 100 mg 11/16/24 22:00 11/17/24 09:29 Doxycycline 100 Mg Capsule PO 100 mg BID [facility] Administration Enoxaparin Sodium 40 mg 11/15/24 14:59 11/17/24 09:29 Enoxaparin 40 Mg/0.4 Ml Syringe SC 40 mg Q24 [facility] Administration Guaifenesin 2 tablet 11/15/24 14:59 11/17/24 09:30 Guaifenesin/D-Methorphan Tab.Sr.12h PO 2 tablet BID [facility] Administration Piperacillin Sod/Tazobactam 50 mls @ 12.5 mls/hr 11/15/24 14:55 11/17/24 05:39 Sod 3.375 gm/ Sodium Chloride IV 12.5 mls/hr Q8 [facility] Administration Sodium Chloride 250 mls @ 15 mls/hr 11/15/24 15:20 11/17/24 06:51 IV Infused .[id number] PRN Infusion Saline Flush Sodium Chloride 250 mls @ 15 mls/hr 11/15/24 15:20 IV .[id number] PRN Additional IVPB Infusion Isosorbide Mononitrate 30 mg 11/16/24 12:00 11/16/24 12:18 Isosorbide Mononitrate 30 Mg Tablet PO 30 mg DAILY@1200 [facility] Administration Protocol Losartan Potassium 25 mg 11/15/24 22:00 11/17/24 09:29 Losartan Potassium 25 Mg Tablet PO 25 mg BID [facility] Administration Protocol Metoprolol Succinate 12.5 mg 11/16/24 10:00 11/17/24 09:30 Metoprolol(Xl)Succ 25 Mg Tablet PO 12.5 mg DAILY [facility] Administration Protocol Nitroglycerin 0.4 mg 11/15/24 15:11 Nitroglycerin (Inpatient Use) 0.4 Mg Tab.Subl SL Q5M PRN CARDIAC/CHEST PAIN Prednisone 40 mg 11/17/24 12:00 Prednisone 20 Mg Tablet PO BREAKFAST [facility] Psyllium Hydrophilic Mucilloid 1 packet 11/15/24 14:59 [...] Cosigner Signature (if applicable): CC: ~ Signed [facility] Work Phone: 1(123) 118-614705-10-2025 Progress note [facility] Medical Records Department [address] [place] [address] Progress Note - Hospitalist 11/17/24933 MR#: [id number] Acct: [id number] Name: NANETTE MONROY Rep #:[id number] : 1945 79 From: Rohan Cortez PCP: Dr. Fernandez Baig, DO Status:ADM IN Location: [place] [address]- 1 Reason for Visit Reason for Visit: [...] lobes, started on IV Zosyn and Zithromax. Pump Operator consult. Pneumonia workup ordered. ABG 7.4 on [...] vasopressor if needed. Total time spent in tlls-oo-afyk encounter in discussion of advanced directive 17 [...] Location: [facility] Charges/Coding Visit Charges Inpatient E&M: 14742 Subs Hosp L2 11/17/24 1243 Cosigner Signature (if applicable): CC: ~ Signed [facility]05-10-2025 Progress note [facility] Medical Records Department [address] [place] [address] Progress Note - Pump Operator 11/17/24 1048 MR#: [id number] Acct: [id number] Name: NANETTE MONROY Rep #:[id number] : 1945 79 From: Carlos Sanchez MD PCP: Dr. Fernandez Baig, DO Status:ADM IN Location: [place] [address] Objective Data Objective Data Vital Signs: Vital [...] mls/hr 11/15/24 15:20 11/17/24 06:51 IV Infused .[id number] PRN Infusion Saline Flush Sodium Chloride 250 mls @ 15 mls/hr 11/15/24 15:20 IV .[id number] PRN Additional IVPB Infusion Isosorbide Mononitrate 30 [...] 12:00 Prednisone 20 Mg Tablet PO BREAKFAST [facility] Psyllium Hydrophilic Mucilloid 1 packet 11/15/24 14:59 [...] Cosigner Signature (if applicable): CC: ~ Signed [facility]05-09-2025 Progress note Author Rohan Henao [facility] Note Date/Time November 16, 2024 3:52pm [facility] Medical Records Department [address] [place] [address] Progress Note - Hospitalist 11/16/24 0859 MR#: [id number] Acct: [id number] Name: NANETTE MONROY Rep #:[id number] : 1945 79 From: Rohan Cortez PCP: Dr. Fernandez Baig, DO Status:ADM IN Location: [place] [id number]- [id number] Reason for Visit Reason for Visit: [...] 86.4 H, Lymph % (Auto) 6.7 L, Harris % (Auto) 6.1, Eos % (Auto) 0.2, [...] 94.1 H, Lymph % (Auto) 4.2 L, Harris % (Auto) 0.9, Eos % (Auto) 0.0, [...] lobes, started on IV Zosyn and Zithromax. Pump Operator consult. Pneumonia workup ordered. ABG 7.4 / [...] vasopressor if needed. Total time spent in bfzo-hn-smfg encounter in discussion of advanced directive 17 [...] O2 Saturation 97, O2 % 5.0, ABG uBR407.9, ABG pO2 86, Maria R Test Positive, [...] 94.1 H, Lymph % (Auto) 4.2 L, Harris % (Auto) 0.9, Eos % (Auto) 0.0, [...] is 35 minutes. Visit Charges Inpatient E&M: 72969 Subs Hosp L3 11/16/24 1346 <Electronically signed by Rohan Henao MD> Cosigner Signature (if applicable): CC: ~ Signed ADDENDUM by Dr. Rohan Henao MD on 11/16/24 at 1552 Addendum Patient and his girlfriend accepted consult for palliative/hospice care. Hospice consult placed. CODE STATUS changed to DNR CC hospice care. 11/16/24 1552<Electronically signed by Rohan Henao MD> Cosigner Signature (if applicable): cc: ~* Signed [facility] Work Phone: 1(972) 563-740205-09-2025 Progress note [facility] Medical Records Department [address] [place] [address] Progress Note - Hospitalist 11/16/24 0859 MR#: [id number] Acct: [id number] Name: NANETTE MONROY Rep #:[id number] : 1945 79 From: Rohan Cortez PCP: Dr. Fernandez Baig, DO Status:ADM IN Location: [place] [address]- 1 Reason for Visit Reason for Visit: [...] 86.4 H, Lymph % (Auto) 6.7 L, Harris % (Auto) 6.1, Eos % (Auto) 0.2, [...] 94.1 H, Lymph % (Auto) 4.2 L, Harris % (Auto) 0.9, Eos % (Auto) 0.0, [...] primarily in the lower lobes. [facility] Exam Narrative Seen and examined. [...] lobes, started on IV Zosyn and Zithromax. Pump Operator consult. Pneumonia workup ordered. ABG 7.4 on [...] vasopressor if needed. Total time spent in dnjr-vq-ayjp encounter in discussion of advanced directive 17 [...] O2 Saturation 97, O2 % 5.0, ABG wXF897.9, ABG pO2 86, Maria R Test Positive, A3Uwgypkbm Device Cannula, Vent Mode Notentered 11/15/24 14:30: Troponin T Hi Sens 4Hr 20 11/16/24 04:27: WBC 15.3 H, RBC 4.38 L, Hgb 13.8, Hct 42.5, MCV 97.0 H, MCH 31.5, MCHC 32.5, RDW Std Deviation 48.3 H, RDW Coeff of Crystal 13.4, Plt Count 242,MPV 9.2, Immature Gran % (Auto) 0.700, Neut% (Auto) 94.1 H, Lymph % (Auto) 4.2 L, Harris % (Auto) 0.9, Eos % (Auto) 0.0, [...] is 35 minutes. Visit Charges Inpatient E&M: 72434 Subs Hosp L3 11/16/24 1346 Cosigner Signature (if applicable): CC: ~ Signed ADDENDUM by Dr. Rohan Henao MD on 11/16/24 at 1552 Addendum Patient and his girlfriend accepted consult for palliative/hospice care. Hospice consult placed. CODE STATUS changed to DNR CC hospice care. 11/16/24 1552 Cosigner Signature (if applicable): cc: ~* Signed [facility]05-09-2025 Consult note Author Harsh Manzo [facility] Note Date/Time November 16, 2024 11:26a m [facility] Medical Records Department [address] [place] [address] Consultation - Pump Operator 11/16/24 0849 MR#: [id number] Acct: [id number] Name: NANETTE MONROY Rep #:[id number] : 1945 79 From: Harsh Manzo DO PCP: Dr. Fernandez Baig, Status:ADM [facility] Assessment & Plan Assessment/Plan (1) [...] noted above. This note was generated with Enmotus dictation software. It may contain incorrectwords, spelling, [...] admitted to the hospital for further management. 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, implants and grafts, initial encounter Nocturnal hypoxia Tobacco dependence in remission Chronic hypoxemic respiratory failure COPD (chronic obstructive pulmonary disease) Home Medications ?Medication ?Instructions ?Recorded ?Last Taken ?Type aspirin 81 mg tablet,delayed 81 mg PO DAILY@1999 [facility] 12/24/19 11/14/24 History release nitroglycerin 0.4 mg [...] 86.4 H, Lymph % (Auto) 6.7 L, Harris % (Auto) 6.1, Eos % (Auto) 0.2, [...] 94.1 H, Lymph % (Auto) 4.2 L, Harris % (Auto) 0.9, Eos % (Auto) 0.0, [...] Location: [facility] Charges/Coding Visit Charges Inpatient E&M: 68461 Init Hosp L3 11/16/24 1126 <Electronically signed by Harsh Manzo DO> Cosigner Signature (if applicable): CC: Dr. Fernandez Baig DO~ Signed [facility] Work Phone: 1(380) 769-797005-09-2025 Consult note [facility] Medical Records Department [address] [place] [address] Consultation - Pump Operator 11/16/24 0849 MR#: [id number] Acct: [id number] Name: NANETTE MONROY Rep #:[id number] : 1945 79 From: Harsh Manzo DO PCP: Dr. Fernandez Baig DO Status:ADM IN Location: [place] [address] Assessment & Plan Assessment/Plan (1) COPD exacerbation: [...] noted above. This note was generated with Enmotus dictation software. It may contain incorrectwords, spelling, [...] admitted to the hospital for further management. 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, implants and grafts, initial encounter Nocturnal hypoxia Tobacco dependence in remission Chronic hypoxemic respiratory failure COPD (chronic obstructive pulmonary disease) Home Medications ?Medication ?Instructions ?Recorded ?Last Taken ?Type aspirin 81 mg tablet,delayed 81 mg PO DAILY@1999 [facility] 12/24/19 11/14/24 History release nitroglycerin 0.4 mg [...] 86.4 H, Lymph % (Auto) 6.7 L, Harris % (Auto) 6.1, Eos % (Auto) 0.2, [...] 94.1 H, Lymph % (Auto) 4.2 L, Harris % (Auto) 0.9, Eos % (Auto) 0.0, [...] Location: [facility] Charges/Coding Visit Charges Inpatient E&M: 45874 Init Hosp L3 11/16/24 1126 Cosigner Signature (if applicable): CC: Dr. Fernandez Baig, DO~ Signed [facility]05-08-2025 History and physical note Author Rohan Henao [facility] Note Date/Time November 15, 2024 2:58pm [facility] Medical Records Department [address] [place] [address] H&P Exam - Hospitalist 11/15/24 1345 MR#: [id number] Acct: [id number] Name: NANETTE MONROY Rep #:[id number] : 1945 79 From: Rohan Cortez PCP: Dr. Fernandez Baig, Status:ADM IN Location: [facility] KE934-9 HPI - General General Date of Admission: [...] was done and is discussed assessment plan. 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 Pump Operator consult. Pneumonia workup ordered. ABG 7.4 on [...] vasopressor if needed. Total time spent in nixs-xa-pslr encounter in discussion of advanced directive 17 minutes. Laboratory Results 11/15/24 10:13: WBC 20.1 H, RBC 4.43 L, Hgb 14.0, Hct 42.3, MCV 95.5 H, MCH 31.6, MCHC 33.1, RDW Std Deviation 47.7 H, RDW Coeff of Crystal 13.5, Plt Count 221,MPV 9.4, Immature Gran % (Auto) 0.400, Neut % (Auto) 86.4 H, Lymph % (Auto) 6.7 L, Harris % (Auto) 6.1, Eos % (Auto) 0.2, [...] O2 Saturation 97, O2 % 5.0, ABG iLA732.9, ABG pO2 86, Maria R Test Positive, [...] Location: [facility] Charges/Coding Visit Charges Inpatient E&M: 97029 Init Hosp L3 Procedures Hospitalists Procedures: 48664 Advncd Care Plan 30 Min 11/15/24 6368 <Electronically signed by Rohan Henao MD> Cosigner Signature (if applicable): CC: Dr. Rohan Henao MD; Dr. Fernandez Baig DO~ Signed [facility] Work Phone: [phone]) 728-961905-08-2025 Discharge summary Author Beau Julissa [facility] Note Date/Time November 15, 2024 2:08pm [facility] Medical Records Department [address] [place] [address] Emergency Department Summary 11/15/24 MR#: [id number] Acct: [id number] Name: NANETTE MONROY Rep #:[id number] : 1945 79 From: Beau Lane PCP: [...] Hyperlipidemia Ischemic cardiomyopathy Atherosclerotic heart disease of [place] coronary artery without angina pectoris Displacement of [...] clinician: Hospitalist This note was generated with Enmotus dictation software. It may contain incorrectwords, spelling, [...] 86.4 H Lymph % (Auto) 6.7 L Harris % (Auto) 6.1 Eos % (Auto) 0.2 [...] primarily in the lower lobes. Reading Location: [facility] Discharge Plan Triage Chief Complaint: Shortness of [...] DO [Primary Care Provider] - Print Language: Bermudian What to do if you have Problems For any increased pain, shortness of breath, bleeding, nausea or vomiting, chestpain, or any unexpected problems, contact your Primary Care Provider. Call [employer] [facility] ([phone]) or report to the closest Emergency Room. Call 911 if necessary. 11/15/24 1403 <Electronically signed by Beau Lane> Cosigner Signature (if applicable): CC: Dr. Fernandez Baig DO ~ Signed ADDENDUM by Dr. Beau Costa DO on 11/15/24 at 1408 ABG requested by hospitalist, pH 7.43, EXK521, PaO2 85 11/15/24 1408<Electronically signed by Beau Lane> Cosigner Signature (if applicable): cc: Dr. Fernandez Baig DO ~* Signed [facility] Work Phone: [phone] 189-506905-08-2025 History and physical note [facility] Medical Records Department [address] [place] [address] H&P Exam - Hospitalist 11/15/24 1345 MR#: [id number] Acct: [id number] Name: NANETTE MONROY Rep #:[id number] : 1945 79 From: Rohan Cortez PCP: Dr. Fernandez Baig DO Status:ADM IN Location: [facility] [id number] - General General Date of Admission: [...] was done and is discussed assessment plan. [facility] Medical History Old myocardial infarction Claudication, intermittent Premature ventricular contraction Hyperlipidemia Ischemic cardiomyopathy Atherosclerotic heart disease of [place] coronary artery without angina pectoris Displacement of [...] 86.4 H, Lymph % (Auto) 6.7 L, Harris % (Auto) 6.1, Eos % (Auto) 0.2, [...] lobes, started on IV Zosyn and Zithromax. Pump Operator consult. Pneumonia workup ordered. ABG 7.4 on [...] vasopressor if needed. Total time spent in tcaa-lf-uhtl encounter in discussion of advanced directive 17 minutes. Laboratory Results 11/15/24 10:13: WBC 20.1 H, RBC 4.43 L, Hgb 14.0, Hct 42.3, MCV 95.5 H, MCH 31.6, MCHC 33.1, RDW Std Deviation 47.7 H, RDW Coeff of Crystal 13.5, Plt Count 221,MPV 9.4, Immature Gran % (Auto) 0.400, Neut% (Auto) 86.4 H, Lymph % (Auto) 6.7 L, Harris % (Auto) 6.1, Eos % (Auto) 0.2, [...] O2 Saturation 97, O2 % 5.0, ABG qFQ781.9, ABG pO2 86, Maria R Test Positive, E8Cbvolusr Device Cannula, Vent Mode Notentered 11/15/24 14:30: [...] Location: [facility] Charges/Coding Visit Charges Inpatient E&M: 89652 Init Hosp L3 Procedures Hospitalists Procedures: 82363 Advncd Care Plan 30 Min 11/15/24 1458 Cosigner Signature (if applicable): CC: Dr. Rohan Henao MD; Dr. Fernandez Baig, DO~ Signed [facility]05-08-2025 Discharge summary [facility] Medical Records Department [address] [place] [address] Emergency Department Summary 11/15/24 MR#: [id number] Acct: [id number] Name: ELIANANANETTE Faith Rep #:[id number] : 1945 79 From: Beau Lane PCP: [...] Hyperlipidemia Ischemic cardiomyopathy Atherosclerotic heart disease of [place] coronary artery without angina pectoris Displacement of [...] clinician: Hospitalist This note was generated with Enmotus dictation software. It may contain incorrectwords, spelling, [...] 86.4 H Lymph % (Auto) 6.7 L Harris % (Auto) 6.1 Eos % (Auto) 0.2 [...] subsegmental atelectasis, left lower lobe. Reading Location: [facility] Chest CTA 11/15/24 11:35 IMPRESSION: No signs of pulmonary embolism. Centrilobular emphysematous changes. Ground-glass opacities are scattered throughout the lower lobes. Can not exclude mild inflammation. Bronchiectatic changes along with bronchial thickening primarily in the lower lobes. Reading Location: [facility] Discharge Plan Triage Chief Complaint: Shortness of [...] DO [Primary Care Provider] - Print Language: Bermudian What to do if you have Problems For any increased pain, shortness of breath, bleeding, nausea or vomiting, chestpain, or any unexpected problems, contact your Primary Care Provider. Call [facility] ([phone]) or report tothe closest Emergency Room. Call 911 if necessary. 11/15/24 1403 Cosigner Signature (if applicable): CC: Dr. Fernandez Baig DO ~ Signed ADDENDUM by Dr. Beau Costa DO on 11/15/24 at 1408 ABG requested by hospitalist, pH 7.43, XBZ760, PaO2 85 11/15/24 1408 Cosigner Signature (if applicable): cc: Dr. 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 It may contain incorrectwords, spelling, and [...] 86.4 H Lymph % (Auto) 6.7 L Harris % (Auto) 6.1 Eos % (Auto) 0.2 [...] DO [Primary Care Provider] - Print Language: B[place]udian What to do if you have Problems For any increased pain, shortness of breath, bleeding, nausea or vomiting, chestpain, or any unexpected problems, contact your Primary Care Provider. Call [facility] ([phone]) or report to the closest Emergency Room. Call 911 if necessary. 11/15/24 1403 <Electronically signed by Beau Lane> Cosigner Signature (if applicable): CC: Dr. Fernandez Baig DO ~ Signed ADDENDUM by Dr. Beau Costa DO on 11/15/24 at 1408 ABG requested by hospitalist, pH 7.43, EHR785, PaO2 85 11/15/24 1408<Electronically signed by Beau Lane> Cosigner Signature (if applicable): cc: Dr. Fernandez Baig DO ~* Signed [facility] Work Phone: 1(246) 391-230705-08-2025 Radiology Diagnostic study note [facility] Imaging Services [address] [place] [address] 723731 CTA Chest W/WO Contrast MR#: [id number] Acct: [id number] Name: NANETTE MONROY Rep #: [id number] : 1945 M 79 From: Lala Montes MD PCP: Dr. Fernandez Baig DO Status: [facility] ER Study:CTA Chest W/WO Contrast Date of Exam: 11/15/24 Exam# [id number] Ordering Dr: Beau Costa DO PROCEDURE: CTA [...] Baig DO; Dr. Beau Costa DO ~ Editorial Intern: Signed [facility]05-08-2025 Radiology Diagnostic study note [facility] Imaging Services [address] [place], [place] [address] Chest PA and Lateral MR#: [id number] Acct: [id number] Name: NANETTE MONROY Rep #: [id number] : 1945 M 79 From: Lala Montes MD PCP: Dr. Fernandez Baig DO Status: [facility] Study:Chest PA and Lateral Date of Exam: 11/15/24 Exam# [id number] Ordering Dr: Beau Costa DO PROCEDURE: CHEST [...] Baig DO; Dr. Beau Costa DO ~ Editorial Intern: Signed [facility]04-18-2025 History of Present illness Narrative* Anastasiya Fink, AUD - 10/26/2024 2:30 PM EDT [facility] [place] [facility] COCHLEAR IMPLANT ADULT PROGRAMMING Name: Nanette Monroy CCF#: [id number] Date of Service: October 26, 2024 Date of : 1945 Age: [age] year old COCHLEAR IMPLANT INFORMATION (see below for all device details) RIGHT ear: External Processor: Cochle[employer] [id number] (N7) External Processor [employer]chle[employer] Nucleus 7 (Upgraded Sep 2021) Processor SN [id number] Magnet Strength 1M Internal Device Cochlear CI 512 Inactive electrodes E6-7 Surgery Date March 2016 Initial activation date May [address] Fox LEFT ear: Resound Nexia 960S-DR SN: [id number] with 1xMP and med power dome Fit and managed at an outside facility ([employer]) Wireless Accessory Set up Fee Paid: No HISTORY: Mr. Monroy was seen today to link his hearing aid in the Cochlear programming software upon return from search engineer repair. Mr. Monroy reported the search engineer sent a new hearing aid with a [...] Cochlear's software. Hearing aid was connected to [employer] software to ensure hearing aid had been programmed with most recent version of NSC's software. 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 Additionally, while attempting to pair hearing aid and processor to patient's phone, both devices showed connected in Cochlear [employer] mary, but streaming was only to the [...] Jacqueline Aceves BA Doctor of Audiology ([place]) Household Appliance Repairer [place], [facility] Clinical and Hearing Implant Education Professor documented [facility]04-[facility]-2025 NoteHNO ID: [id number] Author: ANASTASIYA FNIK AUD Service: ? Author Type: Education Professor Type: Progress Notes Filed: 10/31/2024 12:13 Note Text: [facility] [place] [facility] COCHLEAR IMPLANT ADULT PROGRAMMING Name: Nanette Mnoroy CC#: [id number] Date of Service: October 26, 2024 Date of : 1945 Age: [age] year old COCHLEAR IMPLANT INFORMATION (see below for all device details) RIGHT ear: External Processor: Cochlear [employer] [id number] (N7) External Processor Cochlear [employer] Nucleus 7 (Upgraded Sep 2021) Processor SN [id number] Magnet Strength 1M Internal Device Cochlear CI 512 Inactive electrodes E6-7 Surgery Date March 2016 Initial activation date May [address] Fox LEFT ear: Resound Nexia 960S-DRWC SN: [id number] with 1xMP and mcTEL dome Fit and managed at an outside facility ([employer]) Wireless Accessory Set up Fee Paid: No HISTORY: Mr. Monroy was seen today to link his hearing aid in the Cochlear programming software upon return from search engineer repair. Mr. Monroy reported the search engineer sent a new hearing aid with a [...] Cochlear's software. Hearing aid was connected to [employer] software to ensure hearing aid had been programmed with most recent version of NSC's software. 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 Additionally, while attempting to pair hearing aid and processor to patient's phone, both devices showed connected in [employer] mary, but streaming was only to the [...] Jacqueline Aceves BA Doctor of Audiology ([place]) Household Appliance Repairer [place], [facility] Clinical and Hearing Implant [facility]ologist[facility]04-10-2025 Telephone encounter Note* Telephone Encounter - Mathew Gudino - 10/18/2024 10:59 AM EDT Need to connect new THAYER to CI and get connected to phone. Got a repaired THAYER device. 10/26 2:30 opening JOSUE Gudino Hearing Implant Bobbin Winder Tender [email or web address] [facility]04-10-2025 Miscellaneous Notes* Telephone Encounter - Mathew Gudino - 10/18/2024 10:59 AM EDT Need to connect new THAYER to CI and get connected to phone. Got a repaired THAYER device. 10/26 2:30 opening JOSUE Gudino Hearing Implant Bobbin Winder [email or web address] [email or web address] documented in this encounterLicking [facility] Hospital02-04-2025 Evaluation note* Diagnosis Onset Date Resolution Status Admit Date Chronic hypoxemic respirator y failure chronic August 14 9:29am Stage 3 severe COPD by GOLD classification August 14 9:29am Atherosclerotic heart diseas e of [place] coronary artery without angina pectoris september 10:10am COPD (chronic obstructive pulmonary disease) chronic September 11 10:10am Hyperlipidemia chronic September 11, 2024 10:10am Ischemic cardiomyopathy chronic 2024 10:10am Chronic hypoxemic respirator y failure September 12, 2024 9:16am Stage 3 severe COPD by GOLD classification September 12, 2024 9:16am Acute on chronic hypoxic respiratory failure chronic November 15 1:43pm COPD exacerbation chronic November 1:43pm [facility] Work Phone: [phone]) 936-203812-11-2024 Telephone encounter Note* Telephone Encounter - Mathew Gudino - 06/20/2024 4:08 PM EST The mary for the hearing aid is frozen when you go in to use it. He used to be able to adjust different settings. If he puts the THAYER back in the gas compressor operator and bring it back then he gets it back but then as soon as he turns it off then he loses it again. Working right now, is able to stream to both ears. I will check in tomorrow and see if it resolves once the hearing aid has charged all night. Mathew Gudino Hearing Implant Bobbin Winder Tender [facility]12-11-2024 Miscellaneous Notes* Telephone Encounter - Mathew Gudino - 06/20/2024 4:08 PM EST The mary for the hearing aid is frozen when you go in to use it. He used to be able to adjust different settings. If he puts the THAYER back in the gas compressor operator and bring it back then he gets it back but then as soon as he turns it off then he loses it again. Working right now, is able to stream to both ears. I will check in tomorrow and see if it resolves once the hearing aid has charged all night. Mathew Gudino Hearing Implant Bobbin Winder Tender * Telephone Encounter - Mathew Gudino - [...] and call back. Mathew Gudino Hearing Implant Bobbin Winder Tender documented in this encounterLicking [facility] Hospital12-11-2024 Telephone encounter Note * Telephone [...] and call back. Mathew Gudino Hearing Implant Bobbin Winder Tender [facility] [facility] History of Present illness Narrative* Anastasiya Fink AUD - 06/19/2024 10:30 AM EST Images from the original note were not included. [facility] [place] [facility] Balance [facility] COCHLEAR IMPLANT ADULT PROGRAMMING Name: Nanette Monroy CC#:[id number] Date of Service: 06/19/2024 Date of : 1945 Age: [age] year old COCHLEAR IMPLANT INFORMATION (see below for all device details) RIGHT ear: External Processor: Cochlear [employer] [id number] (N7) External Processor Cochlear [employer] Nucleus 7 (Upgraded Sep 2021) Processor SN [id number] Magnet Strength 1M Internal Device Cochlear CI 512 Inactive electrodes E6-7 Surgery Date March 2016 Initial activation date May [address] Fox LEFT ear: Resound Nexia 960S-DRC SN: [id number] with 1xMP and med power dome Fit and managed at an outside facility ([facility]) Wireless Accessory Set up Fee Paid: No [...] his managing ENT instead of establishing with [facility] ENT * Feels he hears better with his new hearing aid. Would like to have this managed at [facility] AIDED AUDIOMETRIC TESTING: Audiologic testing was completed in the sound field with the speech processor(s) at user settings (Program: 1; Volume: 6; Sensitivity: 12.) before programming. See the SmartForm Audiogram for obtained thresholds. Speech perception testing was completed at 60 convertible power shovel operator using recorded stimuli in the sound field at 0 degrees azimuth. NOTE: The contralateral ear was plugged and muffed or masked during testing. The following testing and results were obtained: Tpcbqvinh-Rbhshim-Widdhcdyc Words (CNC) Test Condition List # Phonemes [...] 35 dB HL from 250-500 Hz and 2559-2480 Hz. Baseline speech measures obtained today demonstrate [...] of auditory status 37 minutes Devon Ni, [facility] Clinical and Hearing Implant Education Professor [facility] NoteHNO ID: [id number] Author: ANASTASIYA FINK AUD Service: ? Author Type: Education Professor Type: Progress Notes Filed: 06/26/2024 22:36 Note Text: [facility] [place] [facility], Speech [facility] Balance Services COCHLEAR IMPLANT ADULT PROGRAMMING Name: Nanette Monroy [facility]#:[id number] Date of Service: 06/19/2024 Date of : 1945 Age: [age] year old COCHLEAR IMPLANT INFORMATION (see below for all device details) RIGHT ear: External Processor: Cochlear [employer] [id number] (N7) External Processor Cochlear [employer] Nucleus 7 (Upgraded Sep 2021) Processor SN [id number] Magnet Strength 1M Internal Device Cochlear CI 512 Inactive electrodes E6-7 Surgery Date March 2016 Initial activation date May [address] Fox LEFT ear: Resound Nexia 960S-DRWC SN: [id number] with 1xMP and mcTEL dome Fit and managed at an outside facility ([employer]) Wireless Accessory Set up Fee Paid: No [...] his managing ENT instead of establishing with [facility] ENT * Feels he hears better with his new hearing aid. Would like to have this managed at [facility] AIDED AUDIOMETRIC TESTING: Audiologic testing was completed in the sound field with the speech processor(s) at user settings (Program: 1; Volume: 6; Sensitivity: 12.) before programming. See the [facility] Audiogram for obtained thresholds. Speech perception testing was completed at 60 convertible power shovel operator using recorded stimuli in the sound field at 0 degrees azimuth. NOTE: The contralateral ear was plugged and muffed or masked during testing. The following testing and results were obtained: Qnamuvdot-Xztkcgt-Aqshykkhu Words (CNC) Test Condition List # Phonemes [...] 35 dB HL from 250-500 Hz and 8480-3648 Hz. Baseline speech measures obtained today demonstrate [...] device immediately and contact (more content not included)...[place] 19759-08-2024 Note. MICRO - Microbiology PROCEDURE: Urine Culture [...] Locations *1: This test was performed at: [facility], [address] [place] [address], [facility]10-07-2024 Telephone encounter Note* Telephone Encounter - Mathew Gudino - 04/16/2024 4:01 PM EDT Fit with THAYER- Phonak, recommended Nexia from resound. Ordered a demo for him to try. Coming in [facility] fit with demo. Questions about phone pairing to hearing aid THAYER through- has to May 21 to do exchange Jerrica West [facility]10-07-2024 Miscellaneous Notes* Telephone Encounter - Mathew Gudino - 04/16/2024 4:01 PM EDT Fit with THAYER- Phonak, recommended Nexia from resound. Ordered a demo for him to try. Coming in [facility] fit with demo. Questions about phone pairing to hearing aid THAYER through- has to May 21 to do exchange Jerrica West documented [facility]09-24-[facility] History of Present illness Narrative* Anastasiya Fink AUD - 04/03/2024 10:30 AM EDT [facility] [place] [facility], Speech [facility] Balance [facility] COCHLEAR IMPLANT ADULT PROGRAMMING Name: Nanette Monroy [facility]#: [id number] Date of Service: April 03, 2024 Date of : 1945 Age: [age] year old COCHLEAR IMPLANT INFORMATION (see below for all device details) Updated: April 03, 2024 RIGHT ear: External Processor: Cochlear [employer] [id number] (N7) External Processor Cochlear [employer] Nucleus 7 (Upgraded Sep 2021) Processor SN [id number] Magnet Strength 1M Internal Device Cochlear CI 512 Inactive electrodes E6-7 Surgery Date March 2016 Initial activation date May [address] Fox LEFT ear: Phonak Audeo L90-RL with 2M medical associate and med vented dome Fit and managed at an outside facility ([facility]) Wireless Accessory Set up Fee Paid: No [...] Cochlear and they recommended he schedule [facility] * Recently dropped processor and [...] ear (a few weeks ago), managed at [facility] in [place]. Education Professor there told him she did not want to make too many changes to his hearing aid programming until he had his implant reprogrammed * Has not been hearing well on the phone when using Bluetooth streaming to left hearing aid * Reported he received some insurance coverage ([facility] AARP supplement) towards his hearing aid, but [...] or One. Recommend patient return to fitting gravel inspector to determine if hearing aid can be exchanged for a Resound device. If that clinic unable to work with Resound, offered for patient to [facility] of a Resound [...] * Patient will return to hearing aid gravel inspector to attempt to return Phonak hearing and and exchange for Resound. He was provided with contact number for Mathew Gudino, HIP coordinator, to reach out once he has further information on whether or not this can be done at his local gravel inspector office or should he want to purchase a hearing aid through [facility]. * Schedule follow-up for 2-3 months to follow-up on changes and complete aided testing * Patient aware he will need to schedule with otology at [facility] to get established for any paperwork [...] of auditory status 0 minutes Devon Ni, [facility] Clinical and Hearing Implant Education Professor documented in this encounterLicking [facility]09-24-2024 NoteHNO ID: [id number] Author: ANASTASIYA FINK AUD Service: ? Author Type: Education Professor Type: Progress Notes Filed: 04/03/2024 12:58 Note Text: [facility] [place] [facility], Speech and Balance Services COCHLEAR IMPLANT ADULT PROGRAMMING Name: Nanette Monroy [facility]#: [id number] Date of Service: April 03, 2024 Date of : 1945 Age: [age] year old COCHLEAR IMPLANT INFORMATION (see below for all device details) Updated: April 03, 2024 RIGHT ear: External Processor: Cochlear [employer] [id number] (N7) External Processor Cochlear [employer] Nucleus 7 (Upgraded Sep 2021) Processor SN [id number] Magnet Strength 1M Internal Device Cochlear CI 512 Inactive electrodes E6-7 Surgery Date March 2016 Initial activation date May [address] Fox LEFT ear: Phonak Audeo L90-RL with 2M medical associate and med vented dome Fit and managed at an outside facility ([facility]) Wireless Accessory Set up Fee Paid: No [...] Cochlear and they recommended [facility] schedule [facility] * Recently dropped processor and [...] ear (a few weeks ago), managed at [facility] in [place]. Education Professor there told him she did not want to make too many changes to his hearing aid programming until he had his implant reprogrammed * Has not been hearing well on the phone when using Bluetooth streaming to left hearing aid * Reported he received some insurance coverage ([facility] AARP supplement) towards his hearing aid, but [...] or One. Recommend patient return to fitting gravel inspector to determine if hearing aid can be exchanged for a Resound device. If that clinic unable to work with Resound, offered for patient to [facility] of a Resound [...] * Patient will return to hearing aid gravel inspector to attempt to (more content not included)...[facility] Future Appointments Appointment Date:12/14/2021 08:30:00 AM Scheduled Provider:FERNANDEZ BAIG DO Location:[facility] Appointment Type:[facility] Evaluation note* Diagnosis Onset Date Resolution Status Chronic hypoxemic respiratory failure chronic COPD (chronic obstructive pulmonary disease) chronic BALDERAS (dyspnea on exertion) ac dustin Atherosclerotic heart diseas e of [place] coronary artery without angina pectoris chronic Hyperlipidemia chronic Ischemic cardiomyopathy [facility] Work Phone: Evaluation note* Diagnosis Onset Date Resolution Status Chronic hypoxemic respiratory failure chronic 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 COPD (chronic obstructive pulmonary disease) chronic Hyperlipidemia chronic Ischemic cardiomyopathy [facility] Work Phone: Evaluation note* Diagnosis Bilateral hearing loss, unspecified hearing loss type- Primary Cochlear implant in place Other postprocedural status documented in this encounter [facility] note* Diagnosis Sensorineural hearing loss (SNHL) of 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 Other postprocedural status documented in this encounter [facility] note* Diagnosis Sensorineural hearing loss (SNHL) of 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 Fernandez Baig DO Status:ADM IN Location: [facility] [id number] HPI - General General Date of Admission: [...] was done and is discussed assessment plan. 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 Pump Operator consult. Pneumonia workup ordered. ABG 7.4 on [...] vasopressor if needed. Total time spent in vsve-bj-btkk encounter in discussion of advanced directive 17 minutes. Laboratory Results 11/15/24 10:13: WBC 20.1 H, RBC 4.43 L, Hgb 14.0, Hct 42.3, MCV 95.5 H, MCH 31.6, MCHC 33.1, RDW Std Deviation 47.7 H, RDW Coeff of Crystal 13.5, Plt Count 221,MPV 9.4, Immature Gran % (Auto) 0.400, Neut % (Auto) 86.4 H, Lymph % (Auto) 6.7 L, Harris % (Auto) 6.1, Eos % (Auto) 0.2, [...] O2 Saturation 97, O2 % 5.0, ABG aQR886.9, ABG pO2 86, Maria R Test Positive, [...] Location: [facility] Charges/Coding Visit Charges Inpatient E&M: 89903 Init Hosp L3 Procedures Hospitalists Procedures: 59777 Advncd Care Plan 30 Min 11/15/24 1458 <Electronically signed by Rohan Henao MD> Cosigner Signature (if applicable): CC: Dr. Rohan Henao MD; Dr. Fernandez Baig, DO~ Signed [facility] Work Phone: Hospital course Narrative No data available for this section [facility] Discharge instructions No data available for this section [facility] Reason for referral (narrative)No reason for referral information availableWFayette County Memorial Hospital Work Phone: Chief Complaint and Reason for Visit Chief Complaint 6 M FU 6 m fu Reason for Visit Chronic hypoxemic re spiratory failure COPD (chronic obstructive pulmonary disease) BALDERAS (dyspnea on exertion) Atherosclerotic heart disease of [place] coronary artery without angina pectoris Hyperlipidemia Ischemic cardiomyopathy Chief Complaint 6 M FU 1 Y FU/PREV PFM INT LABS Reason for Visit Chronic hypoxemic re spiratory failure Stage 3 severe COPD by GOLD classification 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 COPD (chronic [...] 2024 9:29am Atherosclerotic heart diseas e of [place] coronary artery without angina pectoris September 11, 2024 10:10am COPD (chronic obstructive pulmonary dise ase) September 11, 2024 10:10am Hyperlipidemia September 11, 2024 10:1 0am Ischemic cardiomyopathy September 11, 2024 10:10am Chronic hypoxemic respiratory failure [facility] 2024 9:16am Stage 3 severe COPD [...] December 14, 2021 3 :51pm Power of Robotic Machine Tender Production Yes December 14, 2021 3:51pm Advance Directive Response Recorded Date/ Time Living Will Yes December 14, 2021 3 :51pm Do you have a Healthcare Power of Robotic Machine Tender Production? Yes December 14, 2021 3:51pm Do you have a Healthcare Power of Robotic Machine Tender Production? No November 15, 2024 10:04am Advance Directives Yes December 14 3:51pm Advance Directive Response Recorded Date/ Time Living Will Yes December 14, 2021 3 :51pm Do you have a Healthcare Power of Robotic Machine Tender Production? Yes December 14, 2021 3:51pm Do you have a Healthcare Power of Robotic Machine Tender Production? Yes November 15, 2024 3:09pm Name of Medical Power of Robotic Machine Tender Production itzel tovarteetee November 15, 2024 3:09pm Advance Directives Yes December 14 3:51pm Summary Purpose Additional Source Comments Goals (unrecognized section and content) Goals may be documented in a n alternate section (unrecognized sect ion and content) No Status Records FoundNo Status Records FoundNo Status Records FoundNo Status Records FoundNo Status Records Found INFORMATION SOURCE (unrecogn ized section and content) DATE CREATED AUTHOR 07/11/2023 [facility] ([place]) DATE CREATED AUTHOR AUTHOR'S ORGANIZ ATION 06/28/2024 [facility] DATE CREATED AUTHOR AUTHOR'S ORGANIZ ATION 07/22/2024 [facility] DATE CREATED AUTHOR AUTHOR'S ORGANIZ ATION 11/14/[address] [facility] DATE CREATED AUTHOR AUTHOR'S ORGANIZ ATION 12/04/2024 [facility] Care Teams (unrecognized sec tion and content) Team Status: Active Member Role Status Dates Dr. Fernandez Baig DO Family Provider Active Dr. Fernandez Baig DO Primary Care Provider Active Team Status: Inactive Member Role Status Dates Dr. Fernandez Baig DO Primary Care Provider, Referrin g Provider Active Azucena Bethea HARBOUR MASTER, HARBOUR MASTER-C Attending Provider Active Team Status: Inactive Member [...] End: August 14, 2024 Azucena Bethea NP, HARBOUR MASTER-C Attending Provider Active Start: August 14, 2024 End: August 14, 2024 Team Status: Inactive Member Role Status Dates Dr. Fernandez Baig DO Primary Care Provider Active Start: September 11, 2024 End: September 11, 2024 Dr. Fernandez Baig DO Referring Provider Active Start: September 11, 2024 End: September 11, 2024 Yung Huntley HARBOUR MASTER, HARBOUR MASTER-C Attending Provider Active S tart: September 11, 2024 End: September 11, 2024 Team Status: Inactive Member Role Status Dates Dr. Fernandez Baig DO Primary Care Provider Active Start: September 12, 2024 End: September 12, 2024 Dr. Fernandez Baig DO Referring Provider Active Start: September 12, 2024 End: September 12, 2024 Azucena Bethea HARBOUR MASTER, HARBOUR MASTER-C Attending Provider Active Start: September 12, 2024 [...] rt: November 15, 2024 Azucena Bethea NP, HARBOUR MASTER-C Other Provider Active Start: November 15, 2024 Mathew Low , HARBOUR MASTER-C Other Provider Active St art: November 15, [...] 2024 End: November 19, 2024 Azucena Bethea HARBOUR MASTER, HARBOUR MASTER-C Other Provider Active Start: November 15, 2024 End: November 19, 2024 Mathew Low , HARBOUR MASTER-C Other Provider Active St art: November 15, [...] End: November 19, 2024 Naya Livingston NP, HARBOUR MASTER-C Other Provider Active Start: November 15, 2024 [...] rt: November 16, 2024 Azucena Bethea NP, HARBOUR MASTER-C Other Provider Active Start: November 16, 2024 [...] rt: November 16, 2024 Azucena Bethea NP, HARBOUR MASTER-C Other Provider Active Start: November 16, 2024 [...] Sta rt: November 17, 2024 Azucena Bethea HARBOUR MASTER, HARBOUR MASTER-C Other Provider Active Start: November 17, 2024 Mathew Low , HARBOUR MASTER-C Other Provider Active St art: November 17, 2024 Dr. Khai Heart , Other Provider Active Sta rt: November 17, 2024 Dr. Constanza Shearer MD Other Provider Active Start : November 17, 2024 Dr. Bhavana Tellez MD Other Provider Active St art: November 17, 2024 Jenny Tijerina , HARBOUR MASTER-C Other Provider Active Sta rt: November 17, 2024 Naya Livingston HARBOUR MASTER, HARBOUR MASTER-C Other Provider Active Start: November 17, 2024 [...] Sta rt: November 18, 2024 Azucena Bethea HARBOUR MASTER, HARBOUR MASTER-C Other Provider Active Start: November 18, 2024 Mathew Low , HARBOUR MASTER-C Other Provider Active St art: November 18, 2024 Dr. Khai Heart , Other Provider Active Sta rt: November 18, 2024 Dr. Constanza Shearer MD Other Provider Active Start : November 18, 2024 Dr. Bhavana Tellez MD Other Provider Active St art: November 18, 2024 Jenny Tijerina NP-C Other Provider Active Sta rt: November 18, 2024 Naya Livingston NP, HARBOUR MASTER-C Other Provider Active Start: November 18, 2024 [...] Sta rt: November 19, 2024 Azucena Bethea HARBOUR MASTER, HARBOUR MASTER-C Other Provider Active Start: November 19, 2024 Mathew Low , HARBOUR MASTER-C Other Provider Active St art: November 19, 2024 Dr. Khai Heart DO Other Provider Active Sta rt: November 19, 2024 Dr. Consatnza Shearer MD Other Provider Active Start : November 19, 2024 Dr. Bhavana Tellez MD Other Provider Active St art: November 19, 2024 Jenny Tijerina , [place]-C Other Provider Active Sta rt: November 19, 2024 Naya Livingston NP, HARBOUR MASTER-C Other Provider Active Start: November 19, 2024 CARMELITA Vasquez Other Provider Active Start: M 2024 Source Comments (unrecognize d section and content) In the event this informatio n is protected by the Federal Confidentiality of Alcohol and Drug Abuse Patient Records regulations: The Federal rules restrict any use of the information to criminally investigate or prosecute any alcohol or drug abuse patient.[facility] the event this information is protected by the Federal Confidentiality of Alcohol and Drug Abuse Patient Records regulations: The Federal rules restrict any use of the information to criminally investigate or prosecute any alcohol or drug abuse patient.[facility] HospitalIn the event this information is protected by the Federal Confidentiality of Alcohol and Drug Abuse Patient Records regulations: The Federal rules restrict any use of the information to criminally investigate or prosecute any alcohol or drug abuse patient.[facility] HospitalIn the event this information is protected by the Federal Confidentiality of Alcohol and Drug Abuse Patient Records regulations: The Federal rules restrict any use of the information to criminally investigate or prosecute any alcohol or drug abuse patient.[facility] HospitalIn the event this information is protected by the Federal Confidentiality of Alcohol and Drug Abuse Patient Records regulations: The Federal rules restrict any use of the information to criminally investigate or prosecute any alcohol or drug abuse patient.[facility] HospitalIn the event this information is protected by the Federal Confidentiality of Alcohol and Drug Abuse Patient Records regulations: The Federal rules restrict any use of the information to criminally investigate or prosecute any alcohol or drug abuse patient.[facility] Reason for Visit (unrecogniz ed [...] BE BASED ON THE PRIMARY CLINICAL RECORDS. [facility] [employer] provides no warranty or guarantee of the accuracy or completeness of information in this document.
--- NOTE | 2025-01-21 07:46 | PN.HOSP_ITS ---
Reason for Visit Chief Complaint: Fever/chills and fatigue Subjective Subjective Patient was seen and examined today, he was admitted early this morning for a urinary tract infection, he is a home hospice patient due to end-stage COPD but the hospice nurse was unable to place a Hughes catheter in the patient and he was brought into the hospital for evaluation. Workup in the emergency room showed the patient have a urinary tract infection and he was placed on IV antibiotics and admitted under PCU status early this morning. Objective Data Objective Data Vital Signs: Vital Signs Temp Pulse Resp BP Pulse Ox O2 Del Method O2 Flow Rate 98.3 F 77 17 119/89 H 97 Bi-pap 7 01/21/25 05:00 01/21/25 07:39 01/21/25 07:39 01/21/25 05:00 01/21/25 07:39 01/21/25 06:00 01/21/25 04:00 FiO2 35 01/21/25 07:39 Oxygen Flow Rate (L/min) 7 Oxygen Delivery Method Bi-pap Weight: 87.09 kg Body Mass Index (BMI) 28.3 Intake & Output: Intake and Output for Last 24 Hours 01/19/25 01/20/25 01/21/25 23:59 23:59 23:59 Intake Total 2049 Balance 2049 Lab / Micro Data 01/21/25 00:30 01/21/25 00:30 Labs: Laboratory Results - last 24 hr 01/20/25 23:45: Urine Color Yellow, Urine Clarity Cloudy, Urine pH 5.0, Ur Specific [place] 1.015, Urine Protein 30 H, Urine Glucose (UA) Normal, Urine Ketones 5 H, Urine Occult Blood 25 H, Urine Nitrite Negative, Urine Bilirubin 1 H, Urine Urobilinogen 1 H, Ur Leukocyte Esterase 500 H, Urine RBC 0 SEEN, Urine WBC >100 SEEN, Ur Squamous Epith Cells 0-5 SEEN, Urine Bacteria 3+, Urine Mucus 0 SEEN 01/21/25 00:30: WBC 25.3 H, RBC 3.85 L, Hgb 12.5 L, Hct 37.8 L, MCV 98.2 H, MCH 32.5 H, MCHC 33.1, RDW Std Deviation 48.7 H, RDW Coeff of Crystal 13.5, Plt Count 267, MPV 9.3, Immature Gran % (Auto) 1.000 H, Neut % (Auto) 84.8 H, Lymph % (Auto) 5.3 L, Sullivan % (Auto) 8.4, Eos % (Auto) 0.2, Baso % (Auto) 0.3, Absolute Neuts (auto) 21.4 H, Absolute Lymphs (auto) 1.34, Nucleated RBC % 0, Differential Comment SCANNED, Sodium 137, Potassium 3.8, Chloride 98, Carbon Dioxide 25.8, Anion Gap 14, BUN 17, Creatinine 1.14, Estim Creat Clear Calc 51.68, Est GFR (MDRD) Non-Af 65, BUN/Creatinine Ratio 15.2, Glucose 106 H, Lactic Acid 1.8, Calcium 8.8 Physical Exam Const alert and no apparent distress Constitutional Narrative: Patient is very hard of hearing General Appearance: cooperative, well kempt and well developed Orientation / Consciousness: awake, oriented to person and oriented to place HEENT normocephalic, head/scalp atraumatic and moist oral mucous membranes Eyes PERRL, EOMs intact bilaterally and conjunctivae normal Neck supple, no JVD, thyroid normal and no carotid bruits General: trachea midline Resp normal respiratory effort, no retractions and no use of accessory muscles Resp Narrative: Breath sounds are diminished bilaterally Auscultation: Negative for rales, rhonchi or wheezes Cardio regular rate, regular rhythm, S1 normal heart sound, S2 normal heart sound, no murmurs, no rub and no gallops GI normal to inspection, nondistended, normoactive bowel sounds, soft to palpation, non-tender and non-distended Extremity no clubbing, cyanosis or edema Skin no rashes or lesions noted General Skin Exam: no breakdown Neuro CN's II-XII intact bilaterally, moves all extremities, no focal motor deficits and no sensory deficits noted Sensorium / Orientation: awake, alert, oriented to person and oriented to place Speech: speech normal Psych affect normal Assessment & Plan Assessment/Plan (1) UTI (urinary tract infection): PLAN: Plan 1. Acute cystitis-patient is currently on Rocephin, urine cultures are pending at this time #2 chronic obstructive pulmonary disease [id number]'s usual oxygen setting is 6 L at home #3 ischemic cardiomyopathy-stable at this time #4 chronic hypoxic respiratory failure-again patient is usually on 6 L of oxygen at home Total clinical time spent by myself addressing patient's medical issues, reviewing all of his data, and collaborating with patient's care team: 35-minute
[2025-01-21 07:47] LABS: Anion Gap 11 (5-15); BUN 17 mg/dL (4-19); BUN/Creat Ratio 17.2 RATIO (10-20); Calcium,Total 8.1 mg/dL (7.6-11.0); Carbon Dioxide 24.3 mmol/L (21.0-32.0); Chloride 102 mmol/L (98-108); Estimated Creatinine Clearance 65.69 ml/min (50-250); Glucose 112 mg/dL (70-99); Potassium 3.8 mmol/L (3.3-5.1)
[2025-01-21] MEDS: Budesonide Respules 0.5 MG/2 ML AMPUL.NEB. INHALATION ×2 (10:23→19:53)
--- NOTE | 2025-01-21 10:27 | CASEMGMT ---
Social Work SW informed by RN that pt was on hospice prior to hospital stay. SW called [facility], they were unaware pt was here. SW explained pt just got here early this morning. The pt's counseling case manager from hospice, Vera, is to call this SW. JACE Marino
--- NOTE | 2025-01-21 14:50 | CHAPLAIN ---
Type of Pastoral Visit _x__ Initial Visit ___ Follow-up Visit ___ On-call Visit ___ General Patient Visit ___ Spiritual Assessment ___ Family Conference ___ Bereavement ___ Rapid Response ___ Code Blue ___ Other (describe below) Pastoral Care Referral From _x__ Patient ___ Family ___ Nurse ___ Physician ___ Experimental Electronics Developer ___ Drapery And Upholstery Measurer ___ Other (describe below) Sacrament/Intervention _x__ Active listening ___ Anointing ___ Cheondoism ___ Bereavement ___ Communion ___ Leidy exploration ___ ___ Life review _x__ Prayer ___ Reconciliation ___ Sacrament of Sick _x__ Supportive presence ___ Wedding ___ Other (describe below) Pastoral Comments patient is resting but awakens easily when this electronics worker entered room; a friend is sitting at bedside quietly; pt acknowledges presence of electronics worker and has but a few words to say; pt expects a son to come visit him soon; pt says that he is not feeling well and wishes that he doesn't need to be in the hospital, yet thankful for the care given; pt welcomes a prayer for support
[2025-01-21] MEDS: Ceftriaxone 2 GM in 0.9% Normal Saline (50mL MB+) 50 ML IV (21:14)
[2025-01-21] MEDS: Senna/Docusate Sodium 1 Tablet 2 TABLET PO (21:14)
[2025-01-22] VITALS (12 sets, daily range): BP systolic 119–130; BP diastolic 59–92; PULSE 69–130; RESP 12–24; TEMP 36.7–37; O2SAT 92–97
[2025-01-22 03:11] LABS: Hematocrit 39.3 % (40-54); Hemoglobin 12.8 g/dL (13.0-16.5); Immature Granulocytes Count 0.300 X10^3/uL (0.0-0.0); Mean Corp Hgb Conc 32.6 g/dL (32-36); Mean Corpuscular Volume 97.0 fL (80-94); Mean Platelet Vol. 9.2 fl (6.2-12.0); NRBC Flagged by Analyzer 0 % (0-5); POSITIVE DIFFERENTIAL YES; Platelet Count 258 K/mm3 (150-450); RBC Distribution Width CV 13.2 % (11.6-14.6); RBC Distribution Width SD 46.9 fl (35.1-43.9); Red Blood Count 4.05 M/mm3 (4.6-6.2); White Blood Count 28.0 K/mm3 (4.4-11.0)
[2025-01-22 03:13] LABS: Differential Indicated SCAN CRITERIA MET
[2025-01-22] MEDS: 0.9% Saline Lock 10 ML Syringe IV ×3 (03:15→06:06)
[2025-01-22] MEDS: Pantoprazole Sodium 80 MG in 0.9% Normal Saline (100mL Bag) 80 ML 10 MG CONT INF ×2 (03:25→09:53)
--- NOTE | 2025-01-22 03:40 | RAD_ITS ---
PROCEDURE: CHEST 1 VIEW (PORTABLE) 01/22/2025 REASON FOR EXAM: ASPIRATION TECHNIQUE: Frontal view of the chest. COMPARISON: 11/15/2024 FINDINGS: Lordotic positioning. Normal heart size. Status post CABG. Well inflated lungs overall. Band atelectasis/scarring left base. Emphysema and smoking-related interstitial lung disease. RAD/Chest 1 View (Portable) IMPRESSION: Left base band atelectasis/scarring. [facility]
[2025-01-22 03:49] LABS: Prothrombin Time (Protime)PT. 14.2 SECONDS (11.7-14.9)
[2025-01-22 03:53] LABS: Partial Thromboplast Time 20.5 Seconds (24.1-36.2)
[2025-01-22 04:03] LABS: Differential Comment SCANNED; Red Cell Morphology NORM C+C NORMAL (NORM C&C)
[2025-01-22] MEDS: Lorazepam 2 MG/ML WCH Syringe 0.5 MG IV (04:45)
[2025-01-22 06:18] LABS: Hematocrit 36.7 % (40-54); Hemoglobin 12.3 g/dL (13.0-16.5); Mean Corp Hgb Conc 33.5 g/dL (32-36); Mean Corpuscular Volume 96.6 fL (80-94); Mean Platelet Vol. 9.5 fl (6.2-12.0); Platelet Count 247 K/mm3 (150-450); RBC Distribution Width CV 13.2 % (11.6-14.6); RBC Distribution Width SD 46.7 fl (35.1-43.9); Red Blood Count 3.80 M/mm3 (4.6-6.2); White Blood Count 27.3 K/mm3 (4.4-11.0)
[2025-01-22] MEDS: Budesonide Respules 0.5 MG/2 ML AMPUL.NEB. INHALATION ×2 (06:48→20:00)
[2025-01-22] MEDS: Senna/Docusate Sodium 1 Tablet 2 TABLET PO (09:44)
--- NOTE | 2025-01-22 10:02 | CASEMGMT ---
Social Work- SW met with pt to discuss d/c planning. SW introduced self and role. Pt reports that he would like to be reconnected to hospice at discharge. SW will follow to assist. ROSALIO Gomes
--- NOTE | 2025-01-22 13:41 | PN.HOSP_ITS ---
Reason for Visit Chief Complaint: Fever/chills and fatigue Subjective Subjective Patient was seen and examined today, he had some nausea early this morning, his abdomen is mildly distended and tympanic, patient is currently on 6 L of oxygen at rest. Objective Data Objective Data Vital Signs: Vital Signs Temp Pulse Resp BP Pulse Ox O2 Del Method O2 Flow Rate 98.1 F 91 20 H 126/59 H 94 High Flow 6 01/22/25 10:00 01/22/25 10:19 01/22/25 10:19 01/22/25 10:00 01/22/25 10:19 01/22/25 10:19 01/22/25 10:19 FiO2 45 01/22/25 06:51 Oxygen Flow Rate (L/min) 6 Oxygen Delivery Method High Flow Weight: 87.09 kg Body Mass Index (BMI) 28.3 Intake & Output: Intake and Output for Last 24 Hours 01/20/25 01/21/25 01/22/25 23:59 23:59 23:59 Intake Total 3440 / 3440 64.67 / 64.67 Output Total 1000 / 1000 700 / 700 Balance 2440 / 2440 -635.33 / -635.33 Lab / Micro Data 01/22/25 06:05 01/21/25 06:50 Labs: Laboratory Results - last 24 hr 01/22/25 03:03: WBC 28.0 H, RBC 4.05 L, Hgb 12.8 L, Hct 39.3 L, MCV 97.0 H, MCH 31.6, MCHC 32.6, RDW Std Deviation 46.9 H, RDW Coeff of Crystal 13.2, Plt Count 258, MPV 9.2, Immature Gran % (Auto) 1.100 H, Neut % (Auto) 96.3 H, Lymph % (Auto) 2.0 L, [place]a % (Auto) 0.4, Eos % (Auto) 0.0, Baso % (Auto) 0.2, Absolute Neuts (auto) 27.0 H, Absolute Lymphs (auto) 0.55 L, Nucleated RBC % 0, Differential Comment SCANNED, Platelet Estimate ADEQUATE, RBC Morphology NORM C+C, Blood Type O POSITIVE, Antibody Screen NEGATIVE 01/22/25 03:10: PT 14.2, INR 1.1, APTT 20.5 L 01/22/25 06:05: WBC 27.3 H, RBC 3.80 L, Hgb 12.3 L, Hct 36.7 L, MCV 96.6 H, MCH 32.4 H, MCHC 33.5, RDW Std Deviation 46.7 H, RDW Coeff of Crystal 13.2, Plt Count 247, MPV 9.5 Micro: Microbiology 01/20/25 23:45 Urine, Clean Catch Urine Culture - Preliminary GNR lactose assembler watch train 01/22/25 02:50 Vomitus Gastric Occult Blood - Final Occult Blood Positive Radiography Diagnostic Testing: Radiology Impression Chest X-Ray 01/22/25 03:40 IMPRESSION: Left base band atelectasis/scarring. Reading Location: [place] [id number] Physical Exam Narrative alert Constitutional Narrative: Patient is very hard of hearing General Appearance: cooperative, well kempt and well developed Orientation / Consciousness: awake, oriented to person and oriented to place HEENT normocephalic, head/scalp atraumatic and moist oral mucous membranes Eyes PERRL, EOMs intact bilaterally and conjunctivae normal Neck supple, no JVD, thyroid normal and no carotid bruits General: trachea midline Resp normal respiratory effort, no retractions and no use of accessory muscles Resp Narrative: Breath sounds are diminished bilaterally Auscultation: Negative for rales, rhonchi or wheezes Cardio regular rate, regular rhythm, S1 normal heart sound, S2 normal heart sound, no murmurs, no rub and no gallops GI normal to inspection, nondistended, normoactive bowel sounds, soft to palpation, non-tender and non-distended Extremity no clubbing, cyanosis or edema Skin no rashes or lesions noted General Skin Exam: no breakdown Neuro CN's II-XII intact bilaterally, moves all extremities, no focal motor deficits and no sensory deficits noted Sensorium / Orientation: awake, alert, oriented to person and oriented to place Speech: speech normal Psych affect normal Assessment & Plan Assessment/Plan (1) Chronic hypoxemic respiratory failure: (2) UTI (urinary tract infection): PLAN: Plan 1. Acute cystitis-patient is currently on Rocephin, urine culture grew out moderate numbers of a gram-negative eric-lactose assembler watch train, patient will continue on Rocephin #2 chronic obstructive pulmonary disease [id number]'s usual oxygen setting is 6 L at home, continue aerosol treatments and IV Solu-Medrol #3 ischemic cardiomyopathy-stable at this time #4 chronic hypoxic respiratory failure-again patient is usually on 6 L of oxygen at home #5 leukocytosis-it is possible that the patient may have an underlying chronic leukemia, previous white blood cell counts this year have been elevated Patient was a hospice patient prior to admission, he has revoked hospice currently. Total clinical time spent by myself addressing patient's medical issues, reviewing all of his data, and collaborating with patient's care team: 35-minute Charges/Coding Visit Charges Inpatient E&M: 12128 Subs Hosp L2
[2025-01-22] MEDS: Pantoprazole Sodium 40 MG in 0.9% Normal Saline (100mL MB+) 100 ML 300 MG IV (22:14)
[2025-01-22] MEDS: Ceftriaxone 2 GM in 0.9% Normal Saline (50mL MB+) 50 ML IV (22:15)
[2025-01-22] MEDS: MELATONIN 3 MG TABLET PO (22:27)
[2025-01-23 03:15] VITALS: BP 125/80; PULSE 115; RESP 18; TEMP 36.6; O2SAT 95
[2025-01-23 03:36] VITALS: PULSE 66; RESP 12; RESP 18; RESP 19; O2SAT 97
[2025-01-23 07:01] VITALS: PULSE 76; RESP 20; O2SAT 96
[2025-01-23] MEDS: Budesonide Respules 0.5 MG/2 ML AMPUL.NEB. INHALATION (07:01)
--- NOTE | 2025-01-23 10:05 | DCINST_ITS ---
Discharge Instructions DC O2, CPAP, BIPAP needs Home O2 Discharge instructions: Yes Type of respiratory needs?: Oxygen Oxygen frequency: Continuous Continuous oxygen liters per minute: 6 Follow Up Care Test Results: Test results from this visit will be discussed in further detail at your follow- up appointment, if applicable. Discharge Plan Admission Admit Date/Time: 01/21/25 02:32 Primary Reason for Your Visit: Possible UTI Attending Provider: Rohan Henao Primary Care Provider: Care Physician,No Primary Consulting Providers: Xavier Diaz; Jai Marshall Discharge Orders/Prescriptions Prescriptions: New cefdinir 300 mg capsule 300 mg PO BID 5 Days Qty: 10 0RF pantoprazole 40 mg tablet,delayed release (DR/EC) 40 mg PO DAILY 30 Days Qty: 30 0RF Continued nitroglycerin 0.4 mg tablet, sublingual 0.4 mg SUBLINGUAL Q5-15M PRN (Reason: chest pain) Qty: 25 3RF Rx Instructions: until response; do not exceed 3 doses per event (DME) Handicap Placcard See Rx Instructions .ROUTE .MEDSUPPLY Qty: 1 0RF Rx Instructions: Time Duration: 99 months ipratropium-albuterol 0.5 mg-3 mg(2.5 mg base)/3 mL solution for nebulization 3 ml inhalation DAILY losartan 25 mg tablet 25 mg PO BID Qty: 180 4RF isosorbide mononitrate 30 mg tablet extended release 24 hr 30 mg PO DAILY Qty: 90 4RF Rx Instructions: Takes at 1200 albuterol sulfate 90 mcg/actuation HFA aerosol inhaler 2 puff INHALATION Q4H PRN (Reason: shortness of breath or wheezing) Qty: 8.5 3RF Rx Instructions: administer with spacer albuterol sulfate 2.5 mg /3 mL (0.083 %) solution for nebulization 2.5 mg INHALATION Q4H Qty: 180 6RF budesonide 0.5 mg/2 mL suspension for nebulization 0.5 mg INHALATION BID Qty: 120 11RF guaifenesin 1,200 mg tablet extended release 12hr 1,200 mg PO Q12H Qty: 60 6RF aspirin 81 MG tablet 81 mg PO DAILY@2000 benzonatate 100 mg Capsule 200 mg PO TID PRN (Reason: cough) Qty: 30 0RF sennosides-docusate sodium [Stimulant Laxative Plus] 8.6-50 mg Tablet 2 tab PO BID Qty: 0 0RF Daily Fiber (psyllium-aspart) 3 gram Powder In Packet 1 packet PO DAILY PRN PRN (Reason: Constipation) Qty: 0 0RF Rx Instructions: Rovl-iws-xjbztbo lorazepam 0.5 mg tablet 0.5 mg PO Q6H PRN PRN (Reason: anxiety) oxycodone 5 mg tablet 2.5 mg PO Q6H PRN PRN (Reason: pain) potassium chloride 20 mEq tablet,ER particles/crystals 20 meq PO DAILY furosemide 20 mg tablet 20 mg PO BID Changed metoprolol succinate 25 mg tablet extended release 24 hr 25 mg PO DAILY Qty: 45 4RF Held prednisone 10 mg tablet 10 mg PO DAILY Qty: 90 3RF Hold Instructions: Hold for 1 week, may titrate down to 5 mg daily Referrals / Follow Up: Care Physician,No Primary [Primary Care Provider] - Disposition Disposition (needs filled in before D/C Order can be placed): Hospice in Home
[2025-01-23 10:20] LABS: Hematocrit 34.6 % (40-54); Hemoglobin 11.4 g/dL (13.0-16.5); Immature Granulocytes Count 0.260 X10^3/uL (0.0-0.0); Mean Corp Hgb Conc 32.9 g/dL (32-36); Mean Corpuscular Volume 95.8 fL (80-94); Mean Platelet Vol. 9.4 fl (6.2-12.0); NRBC Flagged by Analyzer 0 % (0-5); POSITIVE DIFFERENTIAL YES; Platelet Count 279 K/mm3 (150-450); RBC Distribution Width CV 13.1 % (11.6-14.6); RBC Distribution Width SD 45.9 fl (35.1-43.9); Red Blood Count 3.61 M/mm3 (4.6-6.2); White Blood Count 21.5 K/mm3 (4.4-11.0)
[2025-01-23 10:21] LABS: Differential Indicated SCAN CRITERIA MET
[2025-01-23] MEDS: Pantoprazole Sodium 40 MG in 0.9% Normal Saline (100mL MB+) 100 ML 300 MG IV (10:36)
[2025-01-23 10:39] LABS: Differential Comment SCANNED
[2025-01-23 10:40] VITALS: PULSE 112; RESP 20
[2025-01-23 11:30] LABS: Anion Gap 13 (5-15); BUN 24 mg/dL (4-19); BUN/Creat Ratio 25.5 RATIO (10-20); Calcium,Total 8.7 mg/dL (7.6-11.0); Carbon Dioxide 23.0 mmol/L (21.0-32.0); Chloride 103 mmol/L (98-108); Estimated Creatinine Clearance 69.98 ml/min (50-250); Glucose 165 mg/dL (70-99); Potassium 4.1 mmol/L (3.3-5.1)
--- NOTE | 2025-01-23 12:04 | PCM.DC.SUM ---
Providers Date of Admission: 01/21/25 Date of Discharge: 01/23/25 Primary Care Physician: Antonietta Primary Care Phys Consultations 01/23/25 14:49 Consult: Hospice / Palliative Care Routine Consulting Provider: [facility] Reason for Consult: Resumption of services EMERGENT Consult: No MD Notified: Yes Date Notified: 01/23/25 Time Notified: 14:49 Method of Notification: Verbal Reason For Visit: UTI W/ CONCERN FOR SEPSIS Diagnosis Discharge Diagnosis (1) Chronic hypoxemic respiratory failure: Status: Chronic Code(s): J96.11 - Chronic respiratory failure with hypoxia (2) UTI (urinary tract infection): Status: Acute Code(s): N39.0 - Urinary tract infection, site not specified Plan 79-year-old gentleman was admitted with difficulty urinating, shortness of breath fever and chills, elevated white count with diagnosis of UTI. Sepsis was ruled out. 1. UTI, sepsis ruled out ? Admit under inpatient status to PCU. Met SIRS criteria on admit with fever, tachycardia and leukocytosis but did not meet sepsis criteria. Presumed urinary source as UA is infectious appearing. Given 2 L of IV fluids follow-up with improvement in tachycardia and blood pressure. Patient was started on IV ceftriaxone. Urine culture shows Klebsiella aerogenes 25,000?50,000 colonies. Although with symptomatology, it merits the diagnosis of UTI although colony count is less than 100,000. Prescription for antibiotics cefdinir 300 mg twice daily given 5 days. 2. 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 Case management consulted. Has been on home hospice care since hospitalization here in late November. Continue home inhalers. Patient oxygenation fluctuates. He is not dyspneic or in respiratory distress with some baseline shortness of breath. He has oxygen at home. Stool for occult blood positive therefore prednisone on hold. Patient on pantoprazole inpatient. Prescription for pantoprazole given. 3. History of CAD with CABG, hypertension, hyperlipidemia: Furosemide, losartan, metoprolol succinate resumed. H&H 11.4/34.6% suggesting mild anemia. Baby aspirin continued because of history of CAD and CABG. Patient is hospice at home. DVT prophylaxis: Lovenox CODE STATUS: DNRCC Discharge medication reconciliation done. Discharge follow-up instructions completed. Discharge process discussed with the patient and all questions were answered to patient's satisfaction. Follow with PCP in 1 to 2 weeks Total time spent, exact 35 minutes on discharge meds reconciliation, examination, coordination of care with nurses and ancillary staff, review of imaging and blood test and discussion with the patient on follow-up instructions. Medications at Discharge Home Medications aspirin 81 mg tablet,delayed release 81 mg PO DAILY@2000 [facility] 12/24/19 nitroglycerin 0.4 mg sublingual tablet 0.4 mg sublingual Q5-15M PRN chest pain #25 tabs 03/22/22 Handicap Placcard #1 ea 07/29/22 albuterol sulfate 2.5 mg/3 mL (0.083 %) solution for nebulization 2.5 mg (3 mL) inhalation Q4H #180 mL 08/14/24 albuterol sulfate 90 mcg/actuation aerosol inhaler 2 puff inhalation Q4H PRN shortness of breath or wheezing #8.5 grams 08/14/24 budesonide 0.5 mg/2 mL suspension for nebulization 0.5 mg (2 mL) inhalation BID #120 mL 08/14/24 guaifenesin 1,200 mg tablet, extended release 12 hr 1,200 mg PO Q12H #60 tabs 08/14/24 ipratropium 0.5 mg-albuterol 3 mg (2.5 mg base)/3 mL nebulization soln 3 ml inhalation DAILY 09/11/24 isosorbide mononitrate 30 mg tablet,extended release 24 hr 30 mg PO DAILY #90 tabs 09/11/24 losartan 25 mg tablet 25 mg PO BID #180 tabs 09/11/24 benzonatate 100 mg capsule 200 mg (2 x 100 mg) PO TID PRN cough #30 caps 11/19/24 psyllium husk 3 gram oral powder packet (Daily Fiber (psyllium-aspartame)) 1 packet PO DAILY PRN PRN Constipation #0 ea 11/19/24 sennosides 8.6 mg-docusate sodium 50 mg tablet (Stimulant Laxative Plus) 2 tab PO BID #0 tabs 11/19/24 prednisone 10 mg tablet 10 mg PO DAILY #90 tabs 12/10/24 Held on 01/23/25. Instructions: Hold for 1 week, may titrate down to 5 mg daily furosemide 20 mg tablet 20 mg PO BID 01/21/25 lorazepam 0.5 mg tablet 0.5 mg PO Q6H PRN PRN anxiety 01/21/25 oxycodone 5 mg tablet 2.5 mg PO Q6H PRN PRN pain 01/21/25 potassium chloride 20 mEq tablet,extended release(part/cryst) 20 meq PO DAILY muscle spasm 01/21/25 cefdinir 300 mg capsule 300 mg PO BID 5 days #10 caps 01/23/25 metoprolol succinate 25 mg tablet,extended release 24 hr 25 mg PO DAILY #45 TABLETS 01/23/25 pantoprazole 40 mg tablet,delayed release 40 mg PO DAILY 1 month #30 tabs 01/23/25 Physical Exam Narrative Seen and examined. Patient is stated that he moved his bowel yesterday. No dysuria. On 6 to 8 L of oxygen. DNR CC Physical exam General: Alert, Oriented x3, Cooperative. 28.4 kg/m? HEENT: Atraumatic, PERRLA, EOMI, Normocephalic. Oral: No Gingival or Mucosal Lesions/ Ulcerations Neck: Supple, No JVD, Negative Carotid Bruits Chest wall/Lungs: Air entry severely diminished in bilateral lungs. No crepitation/rhonchi Cardiovascular: Regular rate and rhythm, systolic murmur, status post CABG Abdomen: Bowel Sounds Present, Soft, Non Tender, Non-Distended : No dysuria. No renal angle tenderness. No suprapubic tenderness. Extremities: Mild edema, Capillary Refill Less than 3 Seconds Skin: No rashes, No breakdown Musculoskeletal: No Tenderness to Palpation of Joints or Extremities Neurological: Cranial nerves II-XII grossly intact, DTR 2+/4. No acute focal neurological deficit. Psych/Mental Status: Normal Affect, Appropriate. Weight / BMI Weight Weight: 192 lb Body Mass Index (BMI) 28.3 ABG / Lab / Microbiology Data 01/23/25 10:10 01/23/25 10:04 Laboratory: Laboratory Results - last 24 hr 01/23/25 10:04: Sodium 138, Potassium 4.1, Chloride 103, Carbon Dioxide 23.0, Anion Gap 13, BUN 24 H, Creatinine 0.92, Estim Creat Clear Calc 69.98, Est GFR (MDRD) Non-Af 84, BUN/Creatinine Ratio 25.5 H, Glucose 165 H, Calcium 8.7 01/23/25 10:10: WBC 21.5 H, RBC 3.61 L, Hgb 11.4 L, Hct 34.6 L, MCV 95.8 H, MCH 31.6, MCHC 32.9, RDW Std Deviation 45.9 H, RDW Coeff of Crystal 13.1, Plt Count 279, MPV 9.4, Immature Gran % (Auto) 1.200 H, Neut % (Auto) 93.6 H, Lymph % (Auto) 2.5 L, [place] % (Auto) 2.6, Eos % (Auto) 0.0, Baso % (Auto) 0.1, Absolute Neuts (auto) 20.1 H, Absolute Lymphs (auto) 0.54 L, Nucleated RBC % 0, Differential Comment SCANNED Microbiology: Microbiology 01/21/25 00:30 Blood Culture (Wb) - Right Forearm Blood Culture - Preliminary No growth in 48 hours. 01/21/25 01:45 Blood Culture (Wb) - Anticubital Left Blood Culture - Preliminary No growth in 48 hours. 01/20/25 23:45 Urine, Clean Catch Urine Culture - Final Klebsiella aerogenes 01/22/25 02:50 Vomitus Gastric Occult Blood - Final Occult Blood Positive D/C Instructions DC O2, CPAP, BIPAP Needs Home O2 Discharge instructions: Yes Type of respiratory needs?: Oxygen Oxygen frequency: Continuous Continuous oxygen liters per minute: 6 DC home with Oxygen: Yes Home O2 MD Review: I have reviewed the oxygen testing, and the patient qualifies for home oxygen equipment and portability. The patient is mobile in the home and the community. Meaningful Use Info Meaningful Use Meaningful Use Diagnoses (Choose all that apply): None applicable Discharge Plan Admission Admit Date/Time: 01/21/25 02:32 Primary Reason for Your Visit: Possible UTI Attending Provider: Rohan Henao Primary Care Provider: Care Physician,No Primary Consulting Providers: Xavier Diaz; Jai Marshall; Khai Heart; Constanza Shearer; Bhavana Tellez; Jenny Tijerina; Naya Livingston PRINTER FLOOR COVERING ASSISTANT; Adrianne Mcqueen Discharge Orders/Prescriptions Prescriptions: New cefdinir 300 mg capsule 300 mg PO BID 5 Days Qty: 10 0RF pantoprazole 40 mg tablet,delayed release (DR/EC) 40 mg PO DAILY 30 Days Qty: 30 0RF Continued nitroglycerin 0.4 mg tablet, sublingual 0.4 mg SUBLINGUAL Q5-15M PRN (Reason: chest pain) Qty: 25 3RF Rx Instructions: until response; do not exceed 3 doses per event (DME) Handicap Placcard See Rx Instructions .ROUTE .MEDSUPPLY Qty: 1 0RF Rx Instructions: Time Duration: 99 months ipratropium-albuterol 0.5 mg-3 mg(2.5 mg base)/3 mL solution for nebulization 3 ml inhalation DAILY losartan 25 mg tablet 25 mg PO BID Qty: 180 4RF isosorbide mononitrate 30 mg tablet extended release 24 hr 30 mg PO DAILY Qty: 90 4RF Rx Instructions: Takes at 1200 albuterol sulfate 90 mcg/actuation HFA aerosol inhaler 2 puff INHALATION Q4H PRN (Reason: shortness of breath or wheezing) Qty: 8.5 3RF Rx Instructions: administer with spacer albuterol sulfate 2.5 mg /3 mL (0.083 %) solution for nebulization 2.5 mg INHALATION Q4H Qty: 180 6RF budesonide 0.5 mg/2 mL suspension for nebulization 0.5 mg INHALATION BID Qty: 120 11RF guaifenesin 1,200 mg tablet extended release 12hr 1,200 mg PO Q12H Qty: 60 6RF aspirin 81 MG tablet 81 mg PO DAILY@2000 benzonatate 100 mg Capsule 200 mg PO TID PRN (Reason: cough) Qty: 30 0RF sennosides-docusate sodium [Stimulant Laxative Plus] 8.6-50 mg Tablet 2 tab PO BID Qty: 0 0RF Daily Fiber (psyllium-aspart) 3 gram Powder In Packet 1 packet PO DAILY PRN PRN (Reason: Constipation) Qty: 0 0RF Rx Instructions: Qrgv-yna-ciukbek lorazepam 0.5 mg tablet 0.5 mg PO Q6H PRN PRN (Reason: anxiety) oxycodone 5 mg tablet 2.5 mg PO Q6H PRN PRN (Reason: pain) potassium chloride 20 mEq tablet,ER particles/crystals 20 meq PO DAILY furosemide 20 mg tablet 20 mg PO BID Changed metoprolol succinate 25 mg tablet extended release 24 hr 25 mg PO DAILY Qty: 45 4RF Held prednisone 10 mg tablet 10 mg PO DAILY Qty: 90 3RF Hold Instructions: Hold for 1 week, may titrate down to 5 mg daily Referrals / Follow Up: Care Physician,No Primary [Primary Care Provider] - Disposition Disposition (needs filled in before D/C Order can be placed): Hospice in Home Charges/Coding Visit Charges Inpatient E&M: 80986 Subs Hosp L3
[2025-01-23 14:40] VITALS: BP 111/76; PULSE 76; RESP 20; TEMP 36.4; O2SAT 96
--- NOTE | 2025-01-23 15:21 | CASEMGMT ---
Addendum entered by Suyapa Fox 01/23/25 16:26: Genie from hospice reports tomorrow at 10am for resumption of services. Pt indicates he has enough oxygen until tomorrow. Pt and family would like a breathing treatment prior to discharge. SW called respiratory who reports they will give a PRN dose. SW updated pt and family. SW answered questions and provided education regarding hospice benefit. TIFFANY provided update to bedside nurse. ROSALIO Gomes Addendum entered by Suyapa Fox 01/23/25 15:46: Pt reports that he has a 10L H tank and 10 smaller E tanks at home. TIFFANY called hospice to confirm receipt of fax. Hospice confirms and reports that they are on the phone with caregiver currently. TIFFANY updated bedside nurse. Plan: home with resumption of hospice ROSALIO Gomes Original Note: Social Work- TIFFANY met with pt who confirms plan is to d/c home with hospice. TIFFANY faxed referral to hospice and called to confirm that pt can d/c on 8L. Hospice will accept with increased oxygen requirements. TIFFANY remains available to follow. ROSALIO Gomes
[2025-01-23 16:37] VITALS: PULSE 118; RESP 24
== END 2025-01-23 17:00 | disposition hospice, home (50) | DRG 690 ==
LOC: ED 01-21 03:27 → ICU 01-21 04:56 → MS3 01-22 18:36
PROVIDERS: Family Medicine; Admitting Provider Hospitalist; Emergency Provider Emergency Medicine; Visit Provider Internal Medicine
DX: N30.00 Acute cystitis without hematuria (principal); J96.11 Chronic respiratory failure with hypoxia; Z66 Do not resuscitate; J44.9 Chronic obstructive pulmonary disease, unspecified; I10 Essential (primary) hypertension; E78.5 Hyperlipidemia, unspecified; I25.10 Atherosclerotic heart disease of native coronary artery without angina pectoris; I25.2 Old myocardial infarction; D72.829 Elevated white blood cell count, unspecified; Z79.51 Long term (current) use of inhaled steroids; Z79.899 Other long term (current) drug therapy; Z87.891 Personal history of nicotine dependence; Z95.1 Presence of aortocoronary bypass graft; Z99.89 Dependence on other enabling machines and devices; Z99.81 Dependence on supplemental oxygen; Z79.82 Long term (current) use of aspirin; Z95.5 Presence of coronary angioplasty implant and graft; Z98.52 Vasectomy status
CPT/HCPCS: 36415; 71045; 80048; 81001; 82271; 83605; 85025; 85027; 85610; 85730; 86850; 86900; 86901; 87040; 87077; 87086; 87088; 87186; 94002; 94003; 94640; 94660; 94668; 94762; 97802; 99285; A4216; J0696; J2405

== ENCOUNTER 2025-04-05 14:34 | Emergency (ER) | payer MEDICARE, OTHER, SELFPAY ==
[2025-04-05 14:36] VITALS: BP 86/50; PULSE 86; RESP 24; TEMP 36.6; O2SAT 100; BMI 27.6
--- NOTE | 2025-04-05 14:56 | EX.ED.DYSGE1 ---
HPI History of Present Illness Chief Complaint: Complaint Narrative Narrative: Chief complaint and HPI: 80-year-old male with past medical history of COPD, chronic hypoxia, HLD, CAD on hospice who is actively dying presents from home hospice for Hughes placement. Significant other in the room. Patient has been declining since Tuesday with altered mental status, hypotension, decreased p.o. intake. He is transitioning to inpatient hospice today. Hospice nurse was at bedside all day with the significant other. They were unable to place a 12 Colombian Hughes catheter and therefore sent him to the emergency department for catheter placement. Plan is then to transfer him to inpatient hospice. No further workup or treatment is wanted or warranted. Review of systems: See HPI Medications: As listed on the chart Allergies: As listed on the chart PFSH: Per chart Vital signs: As listed on the chart. Reviewed. Physical exam: Gen: Fatigued, minimally responsive and moaning (patient's baseline for the past several days per significant other) Head: Normocephalic, atraumatic Eyes: Eyes closed ENT: Dry mucous membranes Neck: Trachea midline CV: RRR, no murmurs Resp: Lungs diminished bilaterally on oxygen GI: Abd soft, non-distended, nontender : Circumcised penis. Normal lie and position of the testicles. Musc: No deformity Skin: Warm, dry PFSH PFSH Medical History (Updated 04/05/25 @ 15:[address] 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, implants and grafts, initial encounter Nocturnal hypoxia Tobacco dependence in remission Chronic hypoxemic respiratory failure COPD (chronic obstructive pulmonary disease) Home Medications ?Medication ?Instructions ?Recorded ?Last Taken ?Type aspirin 81 mg tablet,delayed 81 mg PO DAILY@1999 heart [facility] [place] 12/24/19 11/14/24 History release nitroglycerin 0.4 mg sublingual 0.4 mg sublingual Q5-15M PRN chest 03/22/22 Unknown Rx tablet pain #25 tabs Handicap Placcard #1 ea 07/29/22 Unknown Rx albuterol sulfate 2.5 mg/3 mL 2.5 mg (3 mL) inhalation Q4H #180 08/14/24 11/14/24 Rx (0.083 %) solution for nebulization mL albuterol sulfate 90 mcg/actuation 2 puff inhalation Q4H PRN 08/14/24 Unknown Rx aerosol inhaler shortness of breath or wheezing #8.5 grams budesonide 0.5 mg/2 mL suspension 0.5 mg (2 mL) inhalation BID #120 08/14/24 11/14/24 Rx for nebulization mL guaifenesin 1,200 mg tablet, 1,200 mg PO Q12H #60 tabs 08/14/24 11/14/24 Rx extended release 12 hr ipratropium 0.5 mg-albuterol 3 mg 3 ml inhalation DAILY 09/11/24 11/14/24 History (2.5 mg base)/3 mL nebulization soln isosorbide mononitrate 30 mg 30 mg PO DAILY #90 tabs 09/11/24 11/14/24 Rx tablet,extended release 24 hr losartan 25 mg tablet 25 mg PO BID #180 tabs 09/11/24 11/14/24 Rx benzonatate 100 mg capsule 200 mg (2 x 100 mg) PO TID PRN 11/19/24 Unknown Rx cough #30 caps psyllium husk 3 gram oral powder 1 packet PO DAILY PRN PRN 11/19/24 Unknown Rx packet (Daily Fiber Constipation #0 ea (psyllium-aspartame)) sennosides 8.6 mg-docusate sodium 2 tab PO BID #0 tabs 11/19/24 Unknown Rx 50 mg tablet (Stimulant Laxative Plus) prednisone 10 mg tablet 10 mg PO DAILY #90 tabs 12/10/24 Unknown Rx Held on 01/23/25. Instructions: Hold for 1 week, may titrate down to 5 mg daily furosemide 20 mg tablet 20 mg PO BID 01/21/25 Unknown History lorazepam 0.5 mg tablet 0.5 mg PO Q6H PRN PRN anxiety 01/21/25 Unknown History oxycodone 5 mg tablet 2.5 mg PO Q6H PRN PRN pain 01/21/25 Unknown History potassium chloride 20 mEq 20 meq PO DAILY muscle spasm 01/21/25 Unknown History tablet,extended release(part/cryst) cefdinir 300 mg capsule 300 mg PO BID 5 days #10 caps 01/23/25 Unknown Rx metoprolol succinate 25 mg 25 mg PO DAILY #45 TABLETS 01/23/25 11/14/24 Rx tablet,extended release 24 hr pantoprazole 40 mg tablet,delayed 40 mg PO DAILY 1 month #30 tabs 01/23/25 Unknown Rx release Allergy/AdvReac Type Severity Reaction Status Date / Time tiotropium (From Spiriva AdvReac Severe Decreased Verified 04/05/25 14:42 with HandiHaler) Urination cyanocobalamin (vitamin B12) AdvReac Other Verified 04/05/25 14:42 Family History Sister CAD (coronary artery disease) Hx of CABG Sister Breast cancer Brother COPD (chronic obstructive pulmonary disease) Surgical History Presence of aortocoronary bypass graft (~08/01/01) History of cochlear implant Postsurgical percutaneous transluminal coronary angioplasty (PTCA) status (~1989) Aortocoronary bypass status (~08/01/01) History of vasectomy Social History Smoking Status: Former smoker how long ago did patient quit smokin + years ago second hand exposure: No alcohol intake: current alcohol intake frequency: a few times a week substance use type: does not use caffeine: Yes EXAM Physical Exam Const Vital Signs: 04/05/25 14:36 Temperature 97.8 F Temperature Source Axillary Pulse Rate 86 Respiratory Rate 24 H Blood Pressure 86/50 L Blood Pressure Mean 62 Pulse Ox 100 Oxygen Delivery Method Non-Rebreather MDM MDM MDM Narrative Medical decision making narrative: 80-year-old male with past medical history of COPD, chronic hypoxia, HLD, CAD on hospice who is actively dying presents from home hospice for Hughes placement. Significant other in the room. Patient has been declining since Tuesday with altered mental status, hypotension, decreased p.o. intake. He is transitioning to inpatient hospice today. Hospice nurse was at bedside all day with the significant other. They were unable to place a 12 [place]ian Hughes catheter and therefore sent him to the emergency department for catheter placement. Plan is then to transfer him to inpatient hospice. No further workup or treatment is wanted or warranted. On presentation, patient is minimally responsive and moaning. Hypotensive. Patient's baseline for the past several days. Hughes catheter will be placed and patient will be discharged to inpatient hospice per request. We were able to place a 14 [place]ian coud? catheter. Patient discharged to inpatient hospice. Impression: 1. Request for Hughes catheter placement 2. Inpatient hospice Discharge Plan Triage Chief Complaint: Complaint ED Provider: Eh Ramesh Dx/Rx/DC Orders Clinical Impression: Encounter for Hughes catheter replacement Instructions: ED Hughes Catheter, Care Prescriptions: No Action nitroglycerin 0.4 mg tablet, sublingual 0.4 mg SUBLINGUAL Q5-15M PRN (Reason: chest pain) Qty: 25 3RF Rx Instructions: until response; do not exceed 3 doses per event (DME) Handicap Placcard See Rx Instructions .ROUTE .MEDSUPPLY Qty: 1 0RF Rx Instructions: Time Duration: 99 months ipratropium-albuterol 0.5 mg-3 mg(2.5 mg base)/3 mL solution for nebulization 3 ml inhalation DAILY losartan 25 mg tablet 25 mg PO BID Qty: 180 4RF isosorbide mononitrate 30 mg tablet extended release 24 hr 30 mg PO DAILY Qty: 90 4RF Rx Instructions: Takes at 1200 albuterol sulfate 90 mcg/actuation HFA aerosol inhaler 2 puff INHALATION Q4H PRN (Reason: shortness of breath or wheezing) Qty: 8.5 3RF Rx Instructions: administer with spacer albuterol sulfate 2.5 mg /3 mL (0.083 %) solution for nebulization 2.5 mg INHALATION Q4H Qty: 180 6RF budesonide 0.5 mg/2 mL suspension for nebulization 0.5 mg INHALATION BID Qty: 120 11RF guaifenesin 1,200 mg tablet extended release 12hr 1,200 mg PO Q12H Qty: 60 6RF aspirin 81 MG tablet 81 mg PO DAILY@2000 benzonatate 100 mg Capsule 200 mg PO TID PRN (Reason: cough) Qty: 30 0RF sennosides-docusate sodium [Stimulant Laxative Plus] 8.6-50 mg Tablet 2 tab PO BID Qty: 0 0RF Daily Fiber (psyllium-aspart) 3 gram Powder In Packet 1 packet PO DAILY PRN PRN (Reason: Constipation) Qty: 0 0RF Rx Instructions: Vdso-uls-tvkerys lorazepam 0.5 mg tablet 0.5 mg PO Q6H PRN PRN (Reason: anxiety) oxycodone 5 mg tablet 2.5 mg PO Q6H PRN PRN (Reason: pain) potassium chloride 20 mEq tablet,ER particles/crystals 20 meq PO DAILY furosemide 20 mg tablet 20 mg PO BID cefdinir 300 mg capsule 300 mg PO BID 5 Days Qty: 10 0RF pantoprazole 40 mg tablet,delayed release (DR/EC) 40 mg PO DAILY 30 Days Qty: 30 0RF metoprolol succinate 25 mg tablet extended release 24 hr 25 mg PO DAILY Qty: 45 4RF prednisone 10 mg tablet 10 mg PO DAILY Qty: 90 3RF Primary Care Provider: Care Physician,No Primary Referrals: Care Physician,No Primary [Primary Care Provider, Medical] Activity Restrictions/Additional Instructions: Hughes catheter placed, 14 [place]ian coud?. Patient to transfer to inpatient hospice. Print Language: [place] Disposition Disposition: Hospice in Medical Facility Discharge Location: [facility]
--- NOTE | 2025-04-05 15:05 | ED.RN ---
Pt sent for carroll catheter placement. Pt on Hospice, actively transitioning per SO, supped to be enroute to [facility]. Hospice requests carroll and unable to place with multiple attempts made. Pt presents with hypospadias, carroll inserted in urethral opening further down penile shaft. Clear yellow urine flowing into bag.
--- NOTE | 2025-04-05 17:13 | CPS ---
pt hospice, tx for comfort
[2025-04-05] MEDS: Lidocaine Jelly 2% 20 ML Syringe (URO-JET) 1 APPLIC TOPICAL (17:29)
--- NOTE | 2025-04-05 17:49 | PCA ---
THIS CHIEF CREATIVE OFFICER TRIED CONTACTING A FEW DIFFERENT TRANSPORT COMPANIES, [facility], [facility], AND [facility]. [facility] AND [facility] HAD EXTENDED ETA'S, LONGER THAN [facility] 3RD DELAYED ETA OF 1999. [facility] ONLY DOES ALS TRIPS.
--- NOTE | 2025-04-05 19:00 | ED.RN ---
After carroll placed at 1500 Hospice contacted to give nurse to nurse report and notify pt is ready for transport to [facility]. Hospice nurse stated they would not be able to arrange for transport any sooner than 1999 at the earliest. This RN relayed concerns that pt was declining and needed transport to [facility] as soon as possible. Further relayed that both pt's SO and nursing staff had been told pt would be picked up as soon as call was placed. Hospice states that was not the case and could not obtain transport until after 1999. Pt's SO upset, crying, voicing frustrations with delayed transport. She stated she'd been on hold for lengthy periods of time and then Hospice hung up on her. This RN also attempted to call the number for Hospice transport several times but was on hold for lengthy time periods and never able to speak to a person. Family frustrated by fluctuating greens picker times given by Physician's, initially 1700, then 1745, then 2000.
--- NOTE | 2025-04-05 19:07 | ED.RN ---
REPORT CALLED TO HOSPICE PERSONNEL
[2025-04-05 19:11] VITALS: BP 80/52; PULSE 57; RESP 14; TEMP 36.4; O2SAT 100
== END 2025-04-05 19:12 | disposition hospice, inpatient (51) ==
LOC: ED 15:15
PROVIDERS: Emergency Provider Surgery; Visit Provider Surgery
DX: Z46.6 Encounter for fitting and adjustment of urinary device (principal); J44.9 Chronic obstructive pulmonary disease, unspecified; I25.10 Atherosclerotic heart disease of native coronary artery without angina pectoris; E78.5 Hyperlipidemia, unspecified; Z87.891 Personal history of nicotine dependence; Z79.51 Long term (current) use of inhaled steroids; Z99.81 Dependence on supplemental oxygen; Z98.61 Coronary angioplasty status; Z98.52 Vasectomy status; I25.2 Old myocardial infarction
CPT/HCPCS: 51702; 94640; 96372; 99285